=== PATIENT | male | born 1950 | race Caucasian/White ===

== ENCOUNTER → 2016-12-30 | Outpatient (CLI) | payer OTHER, BC ==
[~2016-12-30] MED LIST: ASPI81TA28 PO; AXD/150 PO; B-COTAB18 PO; BENZ-57 PO; BIOT1CAP8 PO; CETI10TA84 PO; CHOL100027 PO; COLC0.6T54 PO; FLUT0.15 NAE; LEVO25TA PO; LSN20 PO; LVQ750 PO; MONT1TAB3 PO; MULT-513 PO; NAPR1TAB9 PO; OXGN; OXYC-106 PO; PREG200C PO; SYMIN/8045 INH; VGR50 PO
[2016-12-30 18:02] LABS: BASO % 0.8 %; BASO ABS # 0.07 K/uL (0-0.2); COMPLETE YES; EOS % 2.8 %; IG% 0.6 %; LYMPH % 28.5 %; LYMPH ABS # 2.48 K/uL (1.2-3.4); MEAN CELL VOLUME 86.8 fL (80-100); MEAN CORPUSCULAR HEMOGLOBIN 28.7 pg (25-34); MEAN CORPUSCULAR HGB CONC 33.1 g/dl (32-36); MEAN PLATELET VOLUME 12.5 fL (7.4-10.4); MONO % 10.8 %; NEUT % 56.5 %; PLATELET COUNT 186 K/uL (130-400); RED BLOOD COUNT 4.84 M/uL (4.7-6.1); WHITE BLOOD COUNT 8.69 K/uL (4.8-10.8)
[2016-12-30 18:29] LABS: ALT/SGPT 29 U/L (12-78); BLOOD UREA NITROGEN 34 mg/dl (7-18); BUN/CREATININE RATIO 26.5 (10-20); CALCIUM 9.2 mg/dl (8.5-10.1); CARBON DIOXIDE 27 mmol/L (21-32); CHLORIDE 108 mmol/L (98-107); CHOLESTEROL 162 mg/dl (0-200); GLUCOSE 90 mg/dl (70-99); POTASSIUM 4.4 mmol/L (3.5-5.1); SODIUM 142 mmol/L (136-145); TRIGLYCERIDES 389 mg/dl (0-150); VERY LOW DENSITY LIPOPROT CALC 78 mg/dl
[2016-12-30 18:32] LABS: ESTIMATED AVERAGE GLUCOSE 108 mg/dl; HA1C FLAG Normal (Normal)
[2016-12-30 18:39] LABS: ALB/GLOB RATIO 0.9 (0.9-2); ALKALINE PHOSPHATASE 73 U/L (45-117); AST/SGOT 24 U/L (15-37); CHOLESTEROL/HDL RATIO 5.6; HDL CHOLESTEROL 29 mg/dl; LDL CHOLESTEROL CALCULATED 55 mg/dl; PROSTATE SPECIFIC ANTIGEN 0.687 ng/ml (0.000-4.000)
--- NOTE | 2017-01-05 13:15 | CODING QUERY MEDICAL NECESSITY ---
SUPPORTING DIAGNOSIS NEEDED A supporting diagnosis is required for the test/procedure performed on this patient in order for us to be reimbursed by the patient's insurance. Please provide a supporting diagnosis for the following test/procedure listed below next to the test name along with your signature. *If there is no additional diagnosis for this patient that would support the following test/procedure please document that below next to the test/procedure. Test(s)/Procedure(s) that require a supporting diagnosis: * GLYCATED HEMOGLOBIN DIAGNOSIS: * PSA DIAGNOSIS: * DOS: 12/30/16 Provider Signature: Date: Thank you [facility] Information Management Once completed, please kindly fax back to [phone] For questions please call [phone]
== END | disposition home or self-care (01) ==
LOC: C.LABBC 13:28
PROVIDERS: ATTEND Internal Medicine
DX: G47.33 Obstructive sleep apnea (adult) (pediatric) (principal); E03.9 Hypothyroidism, unspecified; E55.9 Vitamin D deficiency, unspecified

== ENCOUNTER 2017-04-26 13:56 | Inpatient (IN) | payer OTHER, BC ==
[~2017-04-26] VITALS: Ht 172.7 cm; Wt 128.3 kg
[~2017-04-26 13:56] MED LIST changes: -NAPR1TAB9 PO; -VGR50 PO
[2017-04-26] MEDS ORDERED: SODIUM CHLORIDE 0.9% 1000ML 1,000 ML IV STA ×4 (14:22→17:43)
[2017-04-26 14:39] LABS: COMPLETE YES; EOS % 0.1 %; HEMATOCRIT 43.7 % (42-52); IG% 0.3 %; LYMPH % 3.3 %; LYMPH ABS # 0.24 K/uL (1.2-3.4); MEAN CELL VOLUME 83.7 fL (80-100); MEAN CORPUSCULAR HEMOGLOBIN 27.6 pg (25-34); MEAN PLATELET VOLUME 11.5 fL (7.4-10.4); MONO % 3.3 %; PLATELET COUNT 132 K/uL (130-400); RED BLOOD COUNT 5.22 M/uL (4.7-6.1); WHITE BLOOD COUNT 7.34 K/uL (4.8-10.8)
--- NOTE | 2017-04-26 14:47 | DIAGNOSTIC IMAGING REPORT ---
CHEST ONE VIEW PORTABLE CLINICAL HISTORY: fever COMPARISON STUDY: 04/03/2016 FINDINGS: The heart is enlarged. There is no overt failure. There is no focal pulmonary consolidation. No pleural effusions are visualized.[ IMPRESSION: AP portable study. Cardiomegaly. No evidence of focal pulmonary consolidation. Electronically signed by: Mason Ariza M.D. 04/26/2017 2:46 PM Dictated Date/Time: 04/26/2017 2:45 PM
--- NOTE | 2017-04-26 14:58 | DIAGNOSTIC IMAGING REPORT ---
CT HEAD WITHOUT CONTRAST (CT) CLINICAL HISTORY: confusion COMPARISON STUDY: 08/29/2015 TECHNIQUE: Axial CT of the brain is performed from the vertex to the skull base. IV contrast was not administered for this examination. A dose lowering technique was utilized adhering to the principles of ALARA. CT DOSE: 687.98 mGy.cm FINDINGS: No intra or extra-axial mass lesions are visualized. There is no CT evidence of acute cortical infarction. There is no evidence of midline shift. There is no acute hemorrhage. No calvarial fractures are visualized. There are minimal white matter hypodensities likely on a small vessel basis. There is no evidence of pathologic ventricular dilatation. There is a persistent left mastoid effusion. There is a persistent left posterior parietal scalp nodule, possibly representing a sebaceous cyst. IMPRESSION: 1. Persistent left mastoid effusion 2. No acute intracranial findings 3. Left posterior parietal scalp nodule possibly representing a sebaceous cyst Electronically signed by: Mason Ariza M.D. 04/26/2017 2:57 PM Dictated Date/Time: 04/26/2017 2:55 PM
[2017-04-26] MEDS ORDERED: VGR50 PO (14:59)
[2017-04-26] MEDS ORDERED: NAPR1TAB9 PO (14:59)
[2017-04-26 15:00] LABS: BUN/CREATININE RATIO 20.8 (10-20); CALCIUM 9.1 mg/dl (8.5-10.1); CREATININE 1.4 mg/dl (0.60-1.40); POTASSIUM 3.9 mmol/L (3.5-5.1)
[2017-04-26] MEDS ORDERED: PIPERACILLIN/TAZOBACTAM 3.375 GM/100ML D5W IV STA (15:23)
[2017-04-26] MEDS ORDERED: VANCOMYCIN 1GM/270ML NSS IV STA (15:23)
[2017-04-26] MEDS ORDERED: OPTIRAY 320 IV PRN (15:30)
--- NOTE | 2017-04-26 15:58 | DIAGNOSTIC IMAGING REPORT ---
CT ABD/PELVIS IV CONTRAST ONLY CLINICAL HISTORY: Fever, diarrhea. COMPARISON STUDY: 08/29/2015 TECHNIQUE: Following the IV administration of 94 mL of Optiray-320, CT scan of the abdomen and pelvis was performed from the lung bases to the proximal femurs. Images are reviewed in the axial, sagittal, and coronal planes. IV contrast was administered without complication. A dose lowering technique was utilized adhering to the principles of ALARA. CT DOSE: 2043.58 mGy.cm FINDINGS: Lower chest: There are aortic valvular calcifications. There are basilar atelectatic changes. Liver: There is hepatic steatosis. No focal masses are visualized. Gallbladder: There are equivocal calculi. Spleen: The spleen is mildly enlarged measuring 12.7 cm. Pancreas: Unremarkable. Adrenal glands: There is an indeterminate 2 cm right adrenal gland nodule. Kidneys: There is a 15 mm hyperdense midpole posterior left renal mass. This should be presumed neoplastic until proven otherwise. A dedicated renal CT scan could be obtained in follow-up. There is a 58 mm left renal cyst. There is a complex 14 mm exophytic right renal lesion which appears smaller than on the prior study. There are lower pole left renal calculi the largest of which measures 8 mm. No ureteral or bladder calculi are visualized. Bowel: There are no transition zones indicate bowel obstruction. There are no findings to indicate acute diverticulitis. There are no findings to indicate acute appendicitis. There are postsurgical changes of a right hemicolectomy. Peritoneum: There is no intraperitoneal free air or abdominal ascites. There is small fat-containing hernias. Vasculature: The abdominal aorta is normal in course and caliber. Adenopathy: There is an 18 mm enlarged lymph node in the region of the rommel hepatis. This remains unchanged the prior study. There are borderline enlarged peripancreatic lymph nodes. There are borderline enlarged retroperitoneal lymph nodes. There is a mildly enlarged left external iliac lymph node. There are borderline enlarged left inguinal lymph nodes with mild infiltration of the surrounding fat. Pelvic viscera: The bladder, and pelvic viscera are unremarkable. Skeletal structures: No destructive osseous lesions are seen. IMPRESSION: 1. Postsurgical changes of a right hemicolectomy. 2. No evidence of bowel obstruction. No evidence of free air 3. Mild adenopathy 4. Hepatic steatosis. Mild splenomegaly 5. 2 cm right adrenal gland nodule 6. Indeterminate 15 mm left renal mass. This should be presumed neoplastic until proven otherwise. A dedicated renal CT scan or MRI could be obtained in follow-up 7. Possible cholelithiasis 8. Left-sided nephrolithiasis Electronically signed by: Mason Ariza M.D. 04/26/2017 3:57 PM Dictated Date/Time: 04/26/2017 3:46 PM
[2017-04-26] MEDS ORDERED: ACETAMINOPHEN 500 MG TAB PO STA (16:00)
[2017-04-26 18:46] LABS: URINE APPEARANCE CLOUDY (CLEAR); URINE COLOR DK YELLOW; URINE EPITHELIAL CELL AUTO >30 /lpf (0-5); URINE NITRITE NEG (NEG); URINE SPECIFIC GRAVITY 1.026 (1.000-1.030); UROBILINOGEN NEG (NEG)
[2017-04-26 18:50] LABS: URINE BILIRUBIN 1+ (NEG)
[2017-04-26 18:51] LABS: MANUAL MICROSCOPIC REQUIRED? NO; REVIEW REQ? YES
[2017-04-26] MEDS ORDERED: VANCOMYCIN INJ 1,000 MG in SODIUM CHLORIDE 0.9% 250ML 250 ML IV STA (19:13)
--- NOTE | 2017-04-26 19:36 | History and Physical ---
History & Physical Date & Time of Service: Apr 26, 2017 at 19:35 Chief Complaint: 102.9 Fever Will Not Go Down Primary Care Physician: Carlo Willingham M.D. History of Present Illness Source: patient, clinic records, hospital records Mr Camacho is a 66 year old male with significant history of sepsis (pneumonia ) and bacterial meningitis who presented to the ER with persistent fever for the past day. He notes he felt well over the past few days with only some diarrhea that cleared up today which is not unusual for him (IBS) and no known sick contacts or tick bites. This morning around 11am-12pm he noticed he started to have sudden chills. He had a fever around 103 as measured by his and he started becoming more delirious. He denies any headache, neck stiffness, chest pain, shortness of breath, cough, nasal congestion, ear pain, sore throat, urine Sx, constipation, GI bleeding, In the ER he was initially hemodynamically stable with a temperature of 39.5 celsius. However, he developed hypotension while on his third liter of normal saline and has since received an additional 2 L NSS with current BP of 88/51. Blood cultures taken and he was started on vancomycin, clindamycin and Levaquin for presumed sepsis ?cellulitis as source. His phosphate is 1.1 and he has been started on IV 21mmol of K Phos. His magnesium is 1.5 and he is getting IV 1g Mg Sulphate. WBC 7.34, Procalcitonin elevated at 5.09, Cr 1.4 (at baseline), BUN 29. POC lactic acid 2.22. Stool culture were taken (negative for c.diff toxin). UA showed 3+ protein, trace ketones, small leukocyte esterase, 1+ Marlon, >30 epithelial cells and 0-4 RBC. Counts for pathological casts and renal epithelial cells currently pending. Imaging see below. He is currently being assessed by the nut roaster Dr Buck who started phenylephrine and is placing a right IJ line Past Medical/Surgical History Medical Problems: (1) Calculus Of Kidney (2) Hyperlipidemia (3) Peripheral Neuropathy (4) Spinal cord tumor (benign) L5 (5) Spinal Stenosis, Lumbar Reg, W/Out Neurogenic Claudication (6) Obstructive Sleep Apnea - on home CPAP (7) Hypothyroidism (8) Chronic left leg edema (9) Asthma (10) Mobilizes with cane Past Surgeries: Back surgery 06/14/1984 Right knee arthroscopy Right hemicolectomy Aug 2015 - post massive GI bleeding after polyp removed for colonoscopy Family History Blood clots Social History Smoking Status: Former Smoker Drug Use: none Marital Status: Housing status: lives with significant other Occupational Status: retired Multi-Drug Resistant Organisms History of MDRO: Yes Type of MDRO: MRSA Allergies Coded Allergies: Tetracycline (Verified Allergy, Unknown, SORES IN MOUTH, 04/26/17) Home Medications Scheduled Aspirin (Aspirin Ec), 81 MG PO QPM B-Complex Vitamins (Vitamin B Complex), 1 TAB PO QAM Biotin (Biotin), 1 CAP PO DAILY Cholecalciferol (Vitamin D 1000 Unit), 1,000 INTER.UNIT PO QAM Colchicine (Colchicine), 0.3 MG PO HS Levothyroxine Sodium (Synthroid), 25 MCG PO QAM Lisinopril (Lisinopril), 20 MG PO QAM Montelukast Sodium (Singulair), 10 MG PO HS Multivitamins/Minerals (Mvi With Minerals), 1 TAB PO DAILY Naproxen (Aleve), 440 MG PO DAILY Nizatidine (Nizatidine), 150 MG PO HS Pregabalin (Lyrica), 200 MG PO TID Sildenafil Citrate (Viagra), 50 MG PO PRN Scheduled PRN Oxycodone/Acetaminophen 10MG/325MG (Percocet 10MG/325MG), 1 TAB PO TID PRN for Pain Review of Systems Constitutional: + fever, + chills, + sweats, + fatigue, No weight loss, No weakness Eyes: No worsening of vision, No eye pain, No redness, No discharge, No diplopia ENT: No hearing loss, No unusual epistaxis, No nasal symptoms, No sore throat, No tinnitus, No trouble swallowing Respiratory: No cough, No sputum, No shortness of breath, No dyspnea on exertion, No dyspnea at rest, No hemoptysis Cardiovascular: + edema (chronic left leg edema), No chest pain, No claudication, No palpitations Abdomen: + diarrhea (see HPI (chronic)), No pain, No nausea, No vomiting, No constipation, No GI bleeding Musculoskeletal: No joint pain, No muscle pain Genitourinary - Male: No hematuria, No dysuria, No urinary frequency, No urinary urgency Neurologic: + numbness/tingling (chronic peripheral neuropathy and left sided numbness below ankle) Endocrine: + fatigue, No excessive thirst, No excessive urination Hematologic / Lymphatic: No abnormal bleeding/bruising Integumentary: No rash, No itch Physical Exam Vital Signs Date Time Temp Pulse Resp B/P (MAP) Pulse Ox O2 Delivery O2 Flow Rate FiO2 04/26/17 19:10 96 04/26/17 19:06 96 20 91/52 97 Room Air 04/26/17 18:51 36.5 97 20 81/50 96 Room Air 04/26/17 18:46 97 20 84/55 96 Room Air 04/26/17 18:40 96 20 86/49 97 Room Air 04/26/17 18:36 96 20 79/46 94 Room Air 04/26/17 18:31 97 20 68/47 96 Room Air 04/26/17 18:26 97 20 72/47 96 04/26/17 18:24 97 16 61/49 96 Room Air 04/26/17 18:21 97 16 66/42 96 Room Air 04/26/17 18:18 98 16 72/41 96 Room Air 04/26/17 18:12 96 20 71/41 95 Room Air 04/26/17 18:10 97 20 75/42 95 Room Air 04/26/17 18:06 98 20 79/43 95 04/26/17 18:04 97 16 78/43 96 04/26/17 18:01 100 20 69/40 96 Room Air 04/26/17 18:00 96 20 69/40 95 Room Air 04/26/17 17:57 94 20 73/39 94 Room Air 04/26/17 17:48 100 20 70/43 94 Room Air 04/26/17 17:40 52 20 75/34 94 Room Air 04/26/17 17:36 38.6 72 20 75/34 94 Room Air 04/26/17 15:18 39.9 106 20 116/64 94 04/26/17 14:27 110 20 124/45 92 Room Air 04/26/17 14:18 115 04/26/17 14:01 39.5 58 20 112/57 93 Room Air General Appearance: no apparent distress, + obese (morbidly) Head: normocephalic, atraumatic, + pertinent finding (sebacious cyst noted on CT palpated, no surrounding erythema) Eyes: normal inspection, PERRL, EOMI ENT: normal ENT inspection, hearing grossly normal, TMs normal, pharynx normal Neck: supple, no adenopathy, no JVD (unable to assess due to neck size) Respiratory/Chest: chest non-tender, lungs clear (quiet due to size but no appreciable crackles of wheezing), normal breath sounds, no respiratory distress , no accessory muscle use Cardiovascular: no murmur, normal peripheral pulses (DT/PT and radial pulses equal), + irregularly irregular (difficult to assess but pulse appears to be irregularly irregular) Abdomen/GI: normal bowel sounds, non tender, soft, + pertinent finding (obese) Back: no CVA tenderness Extremities/Musculoskelatal: no calf tenderness, + pedal edema (left sided 3+ up to mid thigh, right sided 2+ to mid amador), + pertinent finding (cool peripheries) Neurologic/Psych: nut roaster II-XII nml as tested, alert, normal mood/affect, oriented x 3, + motor weakness (left sided chronic foot drop), + sensory deficit (below ankle on left sided numbness, tingling sensation in glove and stocking distribution) Skin: + pallor (cool toes b/l), + pertinent finding (bright erythema right amador > left, distribution of venous dematitis sparing the ankle) Diagnostics Laboratory Results Results Past 24 Hours Test 04/26/17 14:15 04/26/17 14:24 04/26/17 15:15 04/26/17 16:15 Range/Units White Blood Count 7.34 4.8-10.8 K/uL Red Blood Count 5.22 4.7-6.1 M/uL Hemoglobin 14.4 14.0-18.0 g/dL Hematocrit 43.7 42-52 % Mean Corpuscular Volume 83.7 80-100 fL Mean Corpuscular Hemoglobin 27.6 25-34 pg Mean Corpuscular Hemoglobin Concent 33.0 32-36 g/dl Platelet Count 132 130-400 K/uL Mean Platelet Volume 11.5 7.4-10.4 fL Neutrophils (%) (Auto) 93.0 % Lymphocytes (%) (Auto) 3.3 % Monocytes (%) (Auto) 3.3 % Eosinophils (%) (Auto) 0.1 % Basophils (%) (Auto) 0.0 % Neutrophils # (Auto) 6.83 1.4-6.5 K/uL Lymphocytes # (Auto) 0.24 1.2-3.4 K/uL Monocytes # (Auto) 0.24 0.11-0.59 K/uL Eosinophils # (Auto) 0.01 0-0.5 K/uL Basophils # (Auto) 0.00 0-0.2 K/uL RDW Standard Deviation 44.6 36.4-46.3 fL RDW Coefficient of Variation 14.6 11.5-14.5 % Immature Granulocyte % (Auto) 0.3 % Immature Granulocyte # (Auto) 0.02 0.00-0.02 K/uL Sodium Level 141 136-145 mmol/L Potassium Level 3.9 3.5-5.1 mmol/L Chloride Level 107 98-107 mmol/L Carbon Dioxide Level 22 21-32 mmol/L Anion Gap 12.0 3-11 mmol/L Blood Urea Nitrogen 29 7-18 mg/dl Creatinine 1.40 0.60-1.40 mg/dl Est Creatinine Clear Calc Drug Dose 68.4 ml/min Estimated GFR () 59.4 Estimated GFR (Non- 51.3 BUN/Creatinine Ratio 20.8 10-20 Random Glucose 90 70-99 mg/dl Calcium Level 9.1 8.5-10.1 mg/dl Total Bilirubin 0.8 0.2-1 mg/dl Direct Bilirubin 0.3 0-0.2 mg/dl Aspartate Amino Transf (AST/SGOT) 33 15-37 U/L Alanine Aminotransferase (ALT/SGPT) 36 12-78 U/L Alkaline Phosphatase 80 45-117 U/L Troponin I 0.021 0-0.045 ng/ml Total Protein 6.9 6.4-8.2 gm/dl Albumin 3.3 3.4-5.0 gm/dl Bedside Lactic Acid Venous 2.22 0.90-1.70 mmol/L Influenza Type A Antigen Neg for Influ A NEG Influenza Type B Antigen Neg for Influ B NEG Urine Color DK YELLOW Urine Appearance CLOUDY CLEAR Urine pH 5.0 4.5-7.5 Urine Specific [place] 1.026 1.000-1.030 Urine Protein 3+ NEG Urine Glucose (UA) NEG NEG Urine Ketones TRACE NEG Urine Occult Blood NEG NEG Urine Nitrite NEG NEG Urine Bilirubin 1+ NEG Urine Urobilinogen NEG NEG Urine Leukocyte Esterase SMALL NEG Urine WBC (Auto) 1-5 0-5 /hpf Urine RBC (Auto) 0-4 0-4 /hpf Urine Hyaline Casts (Auto) 0-5 /lpf Urine Epithelial Cells (Auto) >30 0-5 /lpf Urine Bacteria (Auto) NEG NEG Urine Renal Epithelial Cells 0-5 /lpf Urine Pathogenic Casts 0 /lpf Microbiology Results 04/26/17 Blood Culture, Received Pending 04/26/17 Blood Culture, Received Pending 04/26/17 Urine Culture, Received Pending Diagnostic Radiology CT HEAD WITHOUT CONTRAST (CT) CLINICAL HISTORY: confusion COMPARISON STUDY: 08/29/2015 TECHNIQUE: Axial CT of the brain is performed from the vertex to the skull base. IV contrast was not administered for this examination. A dose lowering technique was utilized adhering to the principles of ALARA. CT DOSE: 687.98 mGy.cm FINDINGS: No intra or extra-axial mass lesions are visualized. There is no CT evidence of acute cortical infarction. There is no evidence of midline shift. There is no acute hemorrhage. No calvarial fractures are visualized. There are minimal white matter hypodensities likely on a small vessel basis. There is no evidence of pathologic ventricular dilatation. There is a persistent left mastoid effusion. There is a persistent left posterior parietal scalp nodule, possibly representing a sebaceous cyst. IMPRESSION: 1. Persistent left mastoid effusion 2. No acute intracranial findings 3. Left posterior parietal scalp nodule possibly representing a sebaceous cyst Electronically signed by: Mason Ariza M.D. 04/26/2017 2:57 PM Dictated Date/Time: 04/26/2017 2:55 PM CHEST ONE VIEW PORTABLE CLINICAL HISTORY: fever COMPARISON STUDY: 04/03/2016 FINDINGS: The heart is enlarged. There is no overt failure. There is no focal pulmonary consolidation. No pleural effusions are visualized.[ IMPRESSION: AP portable study. Cardiomegaly. No evidence of focal pulmonary consolidation. Electronically signed by: Mason Ariza M.D. 04/26/2017 2:46 PM Dictated Date/Time: 04/26/2017 2:[address] ABD/PELVIS IV CONTRAST ONLY CLINICAL HISTORY: Fever, diarrhea. COMPARISON STUDY: 08/29/2015 TECHNIQUE: Following the IV administration of 94 mL of Optiray-320, CT scan of the abdomen and pelvis was performed from the lung bases to the proximal femurs. Images are reviewed in the axial, sagittal, and coronal planes. IV contrast was administered without complication. A dose lowering technique was utilized adhering to the principles of ALARA. CT DOSE: 2043.58 mGy.cm FINDINGS: Lower chest: There are aortic valvular calcifications. There are basilar atelectatic changes. Liver: There is hepatic steatosis. No focal masses are visualized. Gallbladder: There are equivocal calculi. Spleen: The spleen is mildly enlarged measuring 12.7 cm. Pancreas: Unremarkable. Adrenal glands: There is an indeterminate 2 cm right adrenal gland nodule. Kidneys: There is a 15 mm hyperdense midpole posterior left renal mass. This should be presumed neoplastic until proven otherwise. A dedicated renal CT scan could be obtained in follow-up. There is a 58 mm left renal cyst. There is a complex 14 mm exophytic right renal lesion which appears smaller than on the prior study. There are lower pole left renal calculi the largest of which measures 8 mm. No ureteral or bladder calculi are visualized. Bowel: There are no transition zones indicate bowel obstruction. There are no findings to indicate acute diverticulitis. There are no findings to indicate acute appendicitis. There are postsurgical changes of a right hemicolectomy. Peritoneum: There is no intraperitoneal free air or abdominal ascites. There is small fat-containing hernias. Vasculature: The abdominal aorta is normal in course and caliber. Adenopathy: There is an 18 mm enlarged lymph node in the region of the romeml hepatis. This remains unchanged the prior study. There are borderline enlarged peripancreatic lymph nodes. There are borderline enlarged retroperitoneal lymph nodes. There is a mildly enlarged left external iliac lymph node. There are borderline enlarged left inguinal lymph nodes with mild infiltration of the surrounding fat. Pelvic viscera: The bladder, and pelvic viscera are unremarkable. Skeletal structures: No destructive osseous lesions are seen. IMPRESSION: 1. Postsurgical changes of a right hemicolectomy. 2. No evidence of bowel obstruction. No evidence of free air 3. Mild adenopathy 4. Hepatic steatosis. Mild splenomegaly 5. 2 cm right adrenal gland nodule 6. Indeterminate 15 mm left renal mass. This should be presumed neoplastic until proven otherwise. A dedicated renal CT scan or MRI could be obtained in follow-up 7. Possible cholelithiasis 8. Left-sided nephrolithiasis Electronically signed by: Mason Ariza M.D. 04/26/2017 3:57 PM Dictated Date/Time: 04/26/2017 3:46 PM EKG Sinus tachycardia 117 bpm RBBB with frequent PVCs Impression Assessment and Plan 66 year old male with acute onset fever without significant findings of source. SIRS with shock - possible source of left leg cellulitis however this appears to be more consistent with venous dermatitis, it is longstanding, unchanging and not painful. I think it is reasonable to cover with antibiotics given his hypotension however for 48 hours until blood, stool and urine cultures are back. - Continue vancomycin, clindamycin and Zosyn - Follow up blood, urine and stool cultures - Echo in morning to assess for infective endocarditis - Persistent left mastoid effusion - no acute infection on exam, no headache or pain to suggest acute infection - Left posterior parietal scalp nodule - likely sebaceous cyst, does not appear acutely infected - Left-sided nephrolithiasis - no hydronephrosis, known diagnosis, no pain, unlikely cause of sepsis - Possible cholelithiasis - no pain or elevated marlon makes cholecystitis/ cholangitis unlikely cause of sepsis Indeterminate 15 mm left renal mass on CT - renal cell carcinoma could explain his fever, however he does not have any apparent hepatic involvement, no RBCs in UA, anemia or hypercalcemia. He does have multiple enlarged abdominal adenopathy which supports this diagnosis. - consult for heme/onc tomorrow - avoid naproxen or other renal 2 cm right adrenal gland nodule - random cortisol appears to be appropriately raised given stress and hypotension - likely benign as it is <4cm and his problem is hypotension rather than hypertension Hypotension/shock requiring vasopressor support - continue IV fluids over night and will defer to ICU with regard to vasopressor treatment - stop anti-hypertensives Hypophosphatemia/Hypermagnesemia - replace electrolytes as per ICU protocol GERD - switch nizatidine to ranitidine 150mg PO BID Asthma - continue montelukast GUS - continue CPAP at night Peripheral Neuropathy - continue pregabalin Hypothyroidism - recheck TSH - continue levothyroxine 25 mcg VTE Prophylaxis - heparin 5000 units SQ Q8H Code - Full Disposition - admit to ICU. Consult nut roaster. PT/OT Level of Care Critical Care Resuscitation Status FULL RESUSCITATION VTE Prophylaxis VTE Risk Assessment Done? Y/N: Yes Risk Level: Moderate Given or contraindicated: Unfractionated heparin SQ Resident Tracking Resident Involvement: Resident Care Provided Care Provided: Adult ED
[2017-04-26] MEDS ORDERED: VANCOMYCIN 1GM/270ML NSS ONE (19:39)
[2017-04-26] MEDS ORDERED: NURSING VERBAL MED ORDER ONE (19:45)
[2017-04-26 19:51] LABS: MAGNESIUM 1.5 mg/dl (1.8-2.4)
[2017-04-26 19:52] LABS: PHOSPHORUS 1.1 mg/dl (2.5-4.9)
[2017-04-26] MEDS ORDERED: POTASSIUM CHLORIDE 10 MEQ TABCR PO STA (20:17)
[2017-04-26] MEDS ORDERED: POTASSIUM PHOS 3 MMOL/1 ML INFUSION IV STA (20:17)
[2017-04-26] MEDS ORDERED: MAGNESIUM SULFATE 1GM / D5W 1 GM BAG IV STA (20:17)
[2017-04-26] MEDS ORDERED: CLINDAMYCIN IV 900 MG in DEXTROSE 5% ADD-VANTAGE 100ML 100 ML IV ONE (20:30)
--- NOTE | 2017-04-26 20:34 | DIAGNOSTIC IMAGING REPORT ---
CHEST ONE VIEW PORTABLE CLINICAL HISTORY: Central venous line placement COMPARISON STUDY: 04/23/2017 FINDINGS: The heart is enlarged. There is mild central vascular prominence. There is no lobar consolidation. There has been interval placement of a right internal jugular central venous catheter. The tip projects over the superior vena cava. There is no pneumothorax. No pleural effusions are visualized.[ IMPRESSION: No evidence of pneumothorax status post placement of a right internal jugular central venous catheter. The tip projects over the superior vena cava Electronically signed by: Mason Ariza M.D. 04/26/2017 8:33 PM Dictated Date/Time: 04/26/2017 8:32 PM
[2017-04-26] MEDS: PHENYLEPHRINE HCL INJ 20 MG in DEXTROSE 5% 500ML 500 ML IV PRN (20:38)
[2017-04-26] MEDS ORDERED: POTASSIUM PHOSPHATE INJ 21 MMOL in SODIUM CHLORIDE 0.9% 500ML 500 ML IV ONE (20:45)
[2017-04-26] MEDS ORDERED: VANCOMYCIN 1GM/270ML NSS IV SCH (21:02)
[2017-04-26] MEDS ORDERED: VANCOMYCIN CONSULT ACTIVE PRN (21:15)
[2017-04-26 22:00] VITALS: BP 113/61; PULSE 94; TEMP 37.1; O2SAT 95; Ht 172.7 cm; Wt 128.3 kg
--- NOTE | 2017-04-26 23:13 | Critical Care Consultation ---
Critical Care Consultation Date of Consultation: Apr 26, 2017. Attending Physician: Antonio Gunter M.D. Reason for Consultation: Hypotension History of Present Illness Zurdo Camacho is a 66-year-old male who presented to the ED today with complaints of fever of 103F and a 2 day course of diarrhea. According to him the fever has been intermittent and ongoing for approximately 5 days. His 2 day bout of diarrhea occurred approximately 5 days ago as well. He awoke today and after taking both Motrin and later Tylenol his fever notably persisted but rigoberto; therefore, his brought him to the emergency room. Per Pt, his is very protective of his medical status secondary to a extensive problem list including but not limited to bilateral pneumonia, bacterial meningitis, internal bleeding status post colonoscopy that required bowel resection. When patient arrived to the emergency department he was hemodynamically stable; however, while he was receiving his third liter of fluid resuscitation patient became hypotensive. Throughout his stay in the emergency department the patient was resting comfortably without complaints of physical discomfort. Dr. Buck arrived and performed a right IJ central line placement for vasoactive medication administration. Patient's is at bedside throughout procedure. Prior to arrival in ICU patient underwent head and abd/pelvis CT of which findings are below. CXR without consolidation, effusion, of sign of overt heart failure. Patient was started on phenylephrine a MAP greater than 65 and transferred to the ICU. Thus far most of the patient's labs are remarkably within normal limits. He is without leukocytosis or left shift. Creatinine is 1.4 and BUNs 29 there are no signs currently of shocked liver. His procalcitonin is significantly elevated at 5.09 and his [id number] lactic acid is 2.22. Phosphorus level 1.1 and magnesium level of 1.5. Patient's random cortisol is 34.37. A source of infection is not obvious at this time. However patient does have cellulitis of his lower left extremity there is edematous and hot to the touch. Patient states that this appears to be at his baseline and is not concerning to him. Patient denies being recently ill aside from above symptoms, he denies fever or chills, chest pain/pressure, awareness of tachyarrhythmias, dyspnea, cough, abdominal pain/nausea. However during my exam patient stated he was going to vomit and was provided with a basin. Since such time he has vomited approximately 2-3 times. His QTC was reexamined and patient received IV Zofran after receiving his home dose of H2 boy. Patient denies blood or mucus in his stool recently and has had no change in bladder habits. Past Medical/Surgical History Medical Problems: Acid reflux Acute kidney injury Bacterial meningitis Calculus Of Kidney Cellulitis Erectile dysfunction Fever Hyperlipidemia Nec/Nos Hypertension Hypotension Hypothyroidism Leukocytosis Metabolic acidosis with increased anion gap and accumulation of organic acids Neuropathy Obesity Pneumonia Septic shock Septicemia due to group B Streptococcus SIRS (systemic inflammatory response syndrome) Sleep Apnea Spinal cord tumor Spinal Stenosis, Lumbar Reg, W/Out Neurogenic Claudication Surgical Problems: History of right hemicolectomy Appendectomy Removal of spinal cord tumor Family History Blood clots FH: diabetes mellitus FHx: pulmonary embolism Social History Smoking Status: Former Smoker (quit 32 years ago never heavy smoker) Drug Use: none Marital Status: Housing Status: lives with family Occupation Status: retired Allergies Coded Allergies: Tetracycline (Verified Allergy, Unknown, SORES IN MOUTH, 04/26/17) Home Medications Scheduled Aspirin (Aspirin Ec), 81 MG PO QPM B-Complex Vitamins (Vitamin B Complex), 1 TAB PO QAM Biotin (Biotin), 1 CAP PO DAILY Cholecalciferol (Vitamin D 1000 Unit), 1,000 INTER.UNIT PO QAM Colchicine (Colchicine), 0.3 MG PO HS Levothyroxine Sodium (Synthroid), 25 MCG PO QAM Lisinopril (Lisinopril), 20 MG PO QAM Montelukast Sodium (Singulair), 10 MG PO HS Multivitamins/Minerals (Mvi With Minerals), 1 TAB PO DAILY Naproxen (Aleve), 440 MG PO DAILY Nizatidine (Nizatidine), 150 MG PO HS Pregabalin (Lyrica), 200 MG PO TID Sildenafil Citrate (Viagra), 50 MG PO PRN Scheduled PRN Oxycodone/Acetaminophen 10MG/325MG (Percocet 10MG/325MG), 1 TAB PO TID PRN for Pain Current Inpatient Medications Current Inpatient Medications Medications (Trade) Dose Ordered Sig/[place] Route Start Time Stop Time Status Last Admin Dose Admin Ioversol (Optiray 320) 100 ml UD PRN IV 04/26/17 15:30 04/30/17 15:29 Clindamycin Phosphate 900 mg/ Dextrose 106 ml @ 100 mls/hr Q8H IV 04/26/17 19:30 04/28/17 19:29 UNV Phenylephrine HCl 20 mg/Dextrose 502 ml @ 0 mls/hr Q0M PRN IV 04/26/17 20:00 05/26/17 19:59 04/26/17 20:38 195 MLS/HR Potassium Phosphate 21 mmol/ Sodium Chloride 507 ml @ 88 mls/hr TODAY@2045 ONCE IV 04/26/17 20:45 04/27/17 02:30 04/26/17 20:58 88 MLS/HR Vancomycin HCl (Vancomycin 1gm/ 270ml Nss) 1 gm UD IV 04/26/17 21:02 04/28/17 21:01 UNV Vancomycin HCl (Consult) 1 ea UD PRN N/A 04/26/17 21:15 05/26/17 21:14 Review of Systems 12 systems reviewed and negative other than previously mentioned in the HPI. Physical Exam Date Time Temp Pulse Resp B/P (MAP) Pulse Ox O2 Delivery O2 Flow Rate FiO2 04/26/17 22:00 37.1 94 20 113/61 95 Room Air 04/26/17 21:41 36.5 98 20 153/67 96 04/26/17 21:31 81 153/67 97 Room Air 04/26/17 21:00 93 20 139/69 97 Room Air 04/26/17 20:49 98 20 111/73 97 Room Air 04/26/17 20:26 97 124/58 97 Room Air 04/26/17 19:35 96 20 88/51 97 Room Air 04/26/17 19:10 96 04/26/17 19:06 96 20 91/52 97 Room Air 04/26/17 18:51 36.5 97 20 81/50 96 Room Air 04/26/17 18:46 97 20 84/55 96 Room Air 04/26/17 18:40 96 20 86/49 97 Room Air 04/26/17 18:36 96 20 79/46 94 Room Air 04/26/17 18:31 97 20 68/47 96 Room Air 04/26/17 18:26 97 20 72/47 96 04/26/17 18:24 97 16 61/49 96 Room Air 04/26/17 18:21 97 16 66/42 96 Room Air 04/26/17 18:18 98 16 72/41 96 Room Air 04/26/17 18:12 96 20 71/41 95 Room Air 04/26/17 18:10 97 20 75/42 95 Room Air 04/26/17 18:06 98 20 79/43 95 04/26/17 18:04 97 16 78/43 96 04/26/17 18:01 100 20 69/40 96 Room Air 04/26/17 18:00 96 20 69/40 95 Room Air 04/26/17 17:57 94 20 73/39 94 Room Air 04/26/17 17:48 100 20 70/43 94 Room Air 04/26/17 17:40 52 20 75/34 94 Room Air 04/26/17 17:36 38.6 72 20 75/34 94 Room Air 04/26/17 15:18 39.9 106 20 116/64 94 04/26/17 14:27 110 20 124/45 92 Room Air 04/26/17 14:18 115 04/26/17 14:01 39.5 58 20 112/57 93 Room Air Vital Signs - as noted Laboratory Data - as noted Physical Exam: General - NAD, sleeping comfortably on left side prior to my exam Eyes - PERRL, EOMI No icterus, gaze conjugate ENT - Mucosa moist, no lesions or candidiasis Neck - Supple, trachea midline, no masses or lymphadenopathy, no JVD or bruits Lungs - No paradoxical chest wall movement, clear to auscultation bilaterally, no wheezes, rales, or rhonchi Heart - Reg rate and rhythm, No murmur, rubs, clicks, or gallops appreciated Abdomen - BS absent, no bruits noted, tympanic to percussion, soft, nontender, obese abdomen Extremities - Cellulitis of left calf, erythema from ankle to just inferior of patella, dry with intact skin, rubor noted throughout, pedal pulses intact bilaterally Neuro - A&O X 4 Strength extremities equal and appropriate bilaterally Reflexes: normal and equal CN: PERRL, EOMI, no facial asymmetry, uvula/tongue midline Laboratory Results Last 24 Hours Test 04/26/17 14:15 04/26/17 14:24 04/26/17 15:15 04/26/17 16:15 White Blood Count 7.34 K/uL Red Blood Count 5.22 M/uL Hemoglobin 14.4 g/dL Hematocrit 43.7 % Mean Corpuscular Volume 83.7 fL Mean Corpuscular Hemoglobin 27.6 pg Mean Corpuscular Hemoglobin Concent 33.0 g/dl Platelet Count 132 K/uL Mean Platelet Volume 11.5 fL Neutrophils (%) (Auto) 93.0 % Lymphocytes (%) (Auto) 3.3 % Monocytes (%) (Auto) 3.3 % Eosinophils (%) (Auto) 0.1 % Basophils (%) (Auto) 0.0 % Neutrophils # (Auto) 6.83 K/uL Lymphocytes # (Auto) 0.24 K/uL Monocytes # (Auto) 0.24 K/uL Eosinophils # (Auto) 0.01 K/uL Basophils # (Auto) 0.00 K/uL RDW Standard Deviation 44.6 fL RDW Coefficient of Variation 14.6 % Immature Granulocyte % (Auto) 0.3 % Immature Granulocyte # (Auto) 0.02 K/uL Sodium Level 141 mmol/L Potassium Level 3.9 mmol/L Chloride Level 107 mmol/L Carbon Dioxide Level 22 mmol/L Anion Gap 12.0 mmol/L Blood Urea Nitrogen 29 mg/dl Creatinine 1.40 mg/dl Est Creatinine Clear Calc Drug Dose 68.4 ml/min Estimated GFR () 59.4 Estimated GFR (Non- 51.3 BUN/Creatinine Ratio 20.8 Random Glucose 90 mg/dl Calcium Level 9.1 mg/dl Phosphorus Level 1.1 mg/dl Magnesium Level 1.5 mg/dl Total Bilirubin 0.8 mg/dl Direct Bilirubin 0.3 mg/dl Aspartate Amino Transf (AST/SGOT) 33 U/L Alanine Aminotransferase (ALT/SGPT) 36 U/L Alkaline Phosphatase 80 U/L Troponin I 0.021 ng/ml Total Protein 6.9 gm/dl Albumin 3.3 gm/dl Procalcitonin 5.09 ng/ml Bedside Lactic Acid Venous 2.22 mmol/L Influenza Type A Antigen Neg for Influ A Influenza Type B Antigen Neg for Influ B Urine Color DK YELLOW Urine Appearance CLOUDY Urine pH 5.0 Urine Specific [place] 1.026 Urine Protein 3+ Urine Glucose (UA) NEG Urine Ketones TRACE Urine Occult Blood NEG Urine Nitrite NEG Urine Bilirubin 1+ Urine Urobilinogen NEG Urine Leukocyte Esterase SMALL Urine WBC (Auto) 1-5 /hpf Urine RBC (Auto) 0-4 /hpf Urine Hyaline Casts (Auto) /lpf Urine Epithelial Cells (Auto) >30 /lpf Urine Bacteria (Auto) NEG Urine Renal Epithelial Cells /lpf Urine Pathogenic Casts /lpf Test 04/26/17 20:05 04/26/17 22:55 Random Cortisol 34.37 mcg/dl Diagnostic Results CHEST ONE VIEW PORTABLE CLINICAL HISTORY: Central venous line placement COMPARISON STUDY: 04/23/2017 FINDINGS: The heart is enlarged. There is mild central vascular prominence. There is no lobar consolidation. There has been interval placement of a right internal jugular central venous catheter. The tip projects over the superior vena cava. There is no pneumothorax. No pleural effusions are visualized.[ IMPRESSION: No evidence of pneumothorax status post placement of a right internal jugular central venous catheter. The tip projects over the superior vena cava Electronically signed by: Mason Ariza M.D. 04/26/2017 8:33 PM Dictated Date/Time: 04/26/2017 8:[address] HEAD WITHOUT CONTRAST (CT) CLINICAL HISTORY: confusion COMPARISON STUDY: 08/29/2015 TECHNIQUE: Axial CT of the brain is performed from the vertex to the skull base. IV contrast was not administered for this examination. A dose lowering technique was utilized adhering to the principles of ALARA. CT DOSE: 687.98 mGy.cm FINDINGS: No intra or extra-axial mass lesions are visualized. There is no CT evidence of acute cortical infarction. There is no evidence of midline shift. There is no acute hemorrhage. No calvarial fractures are visualized. There are minimal white matter hypodensities likely on a small vessel basis. There is no evidence of pathologic ventricular dilatation. There is a persistent left mastoid effusion. There is a persistent left posterior parietal scalp nodule, possibly representing a sebaceous cyst. IMPRESSION: 1. Persistent left mastoid effusion 2. No acute intracranial findings 3. Left posterior parietal scalp nodule possibly representing a sebaceous cyst Electronically signed by: Mason Ariza M.D. 04/26/2017 2:57 PM Dictated Date/Time: 04/26/2017 2:[address] ABD/PELVIS IV CONTRAST ONLY CLINICAL HISTORY: Fever, diarrhea. COMPARISON STUDY: 08/29/2015 TECHNIQUE: Following the IV administration of 94 mL of Optiray-320, CT scan of the abdomen and pelvis was performed from the lung bases to the proximal femurs. Images are reviewed in the axial, sagittal, and coronal planes. IV contrast was administered without complication. A dose lowering technique was utilized adhering to the principles of ALARA. CT DOSE: 2043.58 mGy.cm FINDINGS: Lower chest: There are aortic valvular calcifications. There are basilar atelectatic changes. Liver: There is hepatic steatosis. No focal masses are visualized. Gallbladder: There are equivocal calculi. Spleen: The spleen is mildly enlarged measuring 12.7 cm. Pancreas: Unremarkable. Adrenal glands: There is an indeterminate 2 cm right adrenal gland nodule. Kidneys: There is a 15 mm hyperdense midpole posterior left renal mass. This should be presumed neoplastic until proven otherwise. A dedicated renal CT scan could be obtained in follow-up. There is a 58 mm left renal cyst. There is a complex 14 mm exophytic right renal lesion which appears smaller than on the prior study. There are lower pole left renal calculi the largest of which measures 8 mm. No ureteral or bladder calculi are visualized. Bowel: There are no transition zones indicate bowel obstruction. There are no findings to indicate acute diverticulitis. There are no findings to indicate acute appendicitis. There are postsurgical changes of a right hemicolectomy. Peritoneum: There is no intraperitoneal free air or abdominal ascites. There is small fat-containing hernias. Vasculature: The abdominal aorta is normal in course and caliber. Adenopathy: There is an 18 mm enlarged lymph node in the region of the rommel hepatis. This remains unchanged the prior study. There are borderline enlarged peripancreatic lymph nodes. There are borderline enlarged retroperitoneal lymph nodes. There is a mildly enlarged left external iliac lymph node. There are borderline enlarged left inguinal lymph nodes with mild infiltration of the surrounding fat. Pelvic viscera: The bladder, and pelvic viscera are unremarkable. Skeletal structures: No destructive osseous lesions are seen. IMPRESSION: 1. Postsurgical changes of a right hemicolectomy. 2. No evidence of bowel obstruction. No evidence of free air 3. Mild adenopathy 4. Hepatic steatosis. Mild splenomegaly 5. 2 cm right adrenal gland nodule 6. Indeterminate 15 mm left renal mass. This should be presumed neoplastic until proven otherwise. A dedicated renal CT scan or MRI could be obtained in follow-up 7. Possible cholelithiasis 8. Left-sided nephrolithiasis Electronically signed by: Mason Ariza M.D. 04/26/2017 3:57 PM Dictated Date/Time: 04/26/2017 3:46 PM Assessment & Plan (1) Hypothyroidism (2) Obesity (3) Hypertension (4) Acid reflux (5) Septic shock (6) Hypotension (7) Neuropathy (8) Left leg cellulitis (9) Sleep apnea Reason Critically Ill: Patient is an 66-year-old male who is transferred to the ICU for hypotension s/p fluid resuscitation. PLAN: CV: * Wean phenylephrine as tolerated; goal MAP >65 * Rate 0.5 with MAP of 67 * Hold Home Hypertension Medications * EKG in emergency department and significant ectopy which calculated a QTC of greater than 600; recalculated and ICU as 469 * Repeat EKG in AM * Ectopy greatly improved after fluid resuscitation and electrolyte initiation * Echo pending * Monitor on telemetry ID: * ABX: Clindamycin, Zosyn, & Vanco * Procalcitonin elevated, Lactic Acid 2.2 * WBCs currently within normal limits * Febrile in emergency department of 39.9; 1 dose of by mouth Tylenol currently afebrile since * Blood cultures, urine culture & stool culture pending * C. difficile negative * U/A: 3+ protein, trace ketone, small amounts of leukocyte Estrace, negative bacteria * MRSA Swab Positive * No obvious source of infection, continue to monitor * Trend & treat fever * CBC q AM Neuro: * Patient complained of his normal neuropathy discomfort in the emergency department and was permitted to take his home dose of Lyrica * Continue Lyrica inpatient * Continue home Percocet * Patient without acute unilateral neurologic deficits Resp: * Diagnosed outpatient with sleep apnea; uses nasal mask at night on CPAP * Cannot tolerate full face mask inpatient * Patient will have bring home mask tomorrow * Supplemental oxygen as required Fluids/Renal: * Creatinine of 1.4 appears to be patient's baseline; no JERRY noted * Strict I's and O's: * Pt currently greater than 6L positive with 405 UOP * Urine concentrated in Rodriguez Bag * Consider Albumin in morning if UOP has not improved * Rodriguez to gravity, remove once patient is normotensive and off pressors * Daily PRP * Electrolyte imbalances * Monitor and replace per protocol * Per CT: 15 mm hyperdense mid pole posterior left renal mass: Presumed neoplastic until proven otherwise * Renal CT scan recommended per radiology * Will defer to Dr. Buck GI/Nutrition: * Pt currently NPO except Meds * Advance diet when hypotension is resolved without pressors * Liver Test without sign of shock * Nausea: 1x dose of Zofran improved symptoms * Monitor QTc * GI Prophylaxis: Home H2 boy converted to ranitidine 150 mg PO BID Heme: * Monitor daily CBC and signs of gross bleeding * H&H WNL * DVT Prophylaxis: Heparin 5,000unit SQ q8h, Will Hold SCDs secondary to cellulitis Endocrine: * Accu-Checks per protocol, started insulin infusion for 2 blood sugars greater than 180 * No Dx of DM (December A1C: 5.4) * Repeat now * Hypothyroidism * Continue home dose Access: Right IJ inserted by Dr. Buck in the emergency department on 04/26. Left Hand PIV. No arterial line at this time with borderline htn, will consent if condition worsens CCT: 45 Minutes; This time is exclusive of all separately billable procedures. Thank you for involving us in the care of this patient. Please refer to Dr. Dale Buck's addendum for further recommendations. I have personally evaluated and examined this patient. I agree with assessment and plan of Destiney Dumont PA-C. Sepsis of unclear etiology, most likely pathogen at this time is complicated skin and soft tissue infection of left lower ext. Problem Qualifiers (1) Obesity: Obesity type: due to excess calories Obesity classification: unspecified obesity classification Serious obesity comorbidity presence: unspecified whether serious comorbidity present Qualified Codes: E66.09 - Other obesity due to excess calories
[2017-04-26] MEDS ORDERED: RANITIDINE HCL 150 MG TAB PO ONE (23:30)
[2017-04-26 23:59] VITALS: O2SAT 94
[2017-04-27] VITALS (69 sets, daily range): BP systolic 43–157; BP diastolic 30–104; PULSE 52–112; TEMP 36.6–37.2; O2SAT 88–97
[2017-04-27] MEDS ORDERED: ONDANSETRON INJ 2 MG/ML 2 ML VIAL IV STA (01:04)
[2017-04-27] MEDS: NORMOSOL R 1,000 ML IV SCH ×2 (01:25→06:40)
[2017-04-27] MEDS: PHENYLEPHRINE HCL INJ 20 MG in DEXTROSE 5% 500ML 500 ML IV PRN ×2 (01:27→04:27)
[2017-04-27] MEDS: VANCOMYCIN INJ 1,750 MG in SODIUM CHLORIDE 0.9% 500ML 500 ML IV SCH ×2 (01:28→15:40)
[2017-04-27] MEDS ORDERED: ONDANSETRON INJ 2 MG/ML 2 ML VIAL ONE (02:13)
[2017-04-27] MEDS ORDERED: PIPERACILL/TAZOBAC IV 4.5 GM in DEXTROSE 5% 100ML IV ONE (02:30)
[2017-04-27] MEDS ORDERED: PIPERACILL/TAZOBAC CONSULT ACTIVE PRN (02:30)
[2017-04-27] MEDS: LEVOTHYROXINE 25 MCG TAB PO SCH (05:49)
[2017-04-27] MEDS: CLINDAMYCIN IV 900 MG in DEXTROSE 5% 100ML 100 ML IV SCH ×3 (05:49→22:24)
[2017-04-27] MEDS: HEPARIN SOD 5000 UNIT/0.5 ML CARP SQ SCH ×3 (06:00→22:25)
[2017-04-27] MEDS ORDERED: FUROSEMIDE 40 MG/4 ML VIAL IV STA (06:19)
[2017-04-27 06:21] LABS: INR 1.5 (0.9-1.1); PARTIAL THROMBOPLASTIN RATIO 1.4; PROTHROMBIN TIME (PATIENT) 16.2 SECONDS (9.0-12.0)
[2017-04-27] MEDS ORDERED: NOREPINEPHRINE BIT INJ 8 MG in DEXTROSE 5% 500ML 500 ML IV PRN (06:33)
[2017-04-27 06:54] LABS: BUN/CREATININE RATIO 19.5 (10-20); CALCIUM 7.6 mg/dl (8.5-10.1); CREATININE 1.7 mg/dl (0.60-1.40); MAGNESIUM 1.6 mg/dl (1.8-2.4); POTASSIUM 4.4 mmol/L (3.5-5.1)
[2017-04-27 06:58] LABS: HEMATOCRIT 40.5 % (42-52); MEAN CELL VOLUME 84.9 fL (80-100); MEAN CORPUSCULAR HEMOGLOBIN 27.3 pg (25-34); MEAN CORPUSCULAR HGB CONC 32.1 g/dl (32-36); MEAN PLATELET VOLUME 10.5 fL (7.4-10.4); PLATELET COUNT 145 K/uL (130-400); RED BLOOD COUNT 4.77 M/uL (4.7-6.1); WHITE BLOOD COUNT 25.18 K/uL (4.8-10.8)
[2017-04-27] MEDS ORDERED: FUROSEMIDE 40 MG/4 ML VIAL ONE (07:02)
[2017-04-27 07:03] LABS: BASO % 0.1 %; BASO ABS # 0.02 K/uL (0-0.2); COMPLETE YES; ECHINOCYTES 1+; IG% 1.1 %; LYMPH % 2.1 %; LYMPH ABS # 0.54 K/uL (1.2-3.4); MONO % 7.5 %; NEUT % 89.2 %
[2017-04-27 07:13] LABS: ESTIMATED AVERAGE GLUCOSE 105 mg/dl; HA1C FLAG Normal (Normal)
[2017-04-27 07:24] LABS: THYROID STIMULATING HORMONE 0.837 uIu/ml (0.300-4.500)
[2017-04-27] MEDS ORDERED: PIPERACILL/TAZOBAC IV 4.5 GM in DEXTROSE 5% 100ML 100 ML IV SCH (08:00)
--- NOTE | 2017-04-27 08:03 | HISTORY & PHYSICAL EXAMINATION ---
DATE OF ADMISSION: 04/26/2017 ADMISSION ADDENDUM The patient was seen 04/26/2017 for admission. HISTORY OF PRESENT ILLNESS: This patient was initially seen by the resident doctor, Slade Slade, in addition to the meat press operator. I have seen and examined the patient independently and reviewed the notes and orders as per the resident. This is a 66-year-old male with a history of chronic lower extremity edema, morbid obesity, hyperlipidemia and asthma. He presented with a fever, was found to be hypotensive. His lower extremity is erythematous; however, he states that that is his baseline and it was unclear if he was septic from the skin source. He was admitted to the intensive care unit therefore with a diagnosis of sepsis and FUO. The patient was placed on pressors after a third liter of fluid. PHYSICAL EXAMINATION: GENERAL: The patient was awake, alert and oriented, although somnolent at the time that I saw him. HEAD AND NECK: Limited due to habitus. HEART: S1, 2 initially tachycardic with a regular rhythm. LUNGS: Clear to auscultation. ABDOMEN: Nontender, nondistended. EXTREMITIES: There is significant bilateral edema with erythema as above. PLAN: As follows: The patient has been placed on broad spectrum antibiotics with vancomycin, Zosyn and clindamycin. He is admitted to the intensive care unit. We will obtain an echocardiogram in the a.m. and are pending blood cultures to tailor antibiotic use. He is currently requiring pressor support, although only minimally. The patient was hypophosphatemic and hypomagnesemic on arrival, those are being replaced. Regarding his asthma, he will continue montelukast. Regarding his UGS, he has declined a standard ____ mask as he uses his own nasal mask and will have someone bring it in during the day. We are pending a recheck of his TSH. The patient has been placed on heparin for DVT prophylaxis and again is admitted to the intensive care unit, has been seen by the meat press operator at the time of admission and is currently stable on a low dose of pressors.
[2017-04-27] MEDS: OXYCODONE/ACETAMINOPHEN 10/325MG TAB PO PRN ×3 (08:37→13:47)
[2017-04-27] MEDS: CHOLECALCIFEROL 1000 INTER.UNIT TAB PO SCH (08:39)
[2017-04-27] MEDS: PREGABALIN 100 MG CAP PO SCH ×3 (08:39→21:05)
[2017-04-27] MEDS: CEROVITE ADV FORMULA TAB PO SCH (08:39)
[2017-04-27] MEDS: RANITIDINE HCL 150 MG TAB PO SCH ×2 (08:39→21:06)
--- NOTE | 2017-04-27 08:52 | Oncology Consultation ---
Oncology/Heme Consultation Date of Consultation: Apr 27, 2017. Attending Physician: Antonio Gunter M.D. Reason for Consultation: Left kidney mass History of Present Illness Mr. Camacho is a 66 year old man with morbid obesity, HTN, hyperlipidemia, and peripheral neuropathy. He has chronic edema in his left leg with stasis changes. He presented to the ER yesterday with fevers, diarrhea, and warmth and redness of his left leg. He was found to be hypotensive and tachycardic and is now on pressors after failing volume resuscitation. He has blood cultures that are positive for gram positive cocci, likely from his cellulitis. As part of his initial evaluation, he underwent a CT abdomen/pelvis that revealed a small ( 15 mm) left mid-pole renal mass. He has a history of kidney stones and previously followed with Dr. Francis. A CT from 2014 shows a lesion in the same area. It has clearly, though modestly, grown since then. He has other findings, like some borderline enlarged abdominal nodes and some splenules, that are unchanged from 2015. He is feeling better today, though he remains weak. Past Medical/Surgical History Medical Problems: (1) Anemia Status: Acute (2) GI bleed Status: Acute (3) Severe sepsis Status: Acute Family History Blood clots FH: diabetes mellitus FHx: pulmonary embolism Social History Smoking Status: Former Smoker (quit 32 years ago never heavy smoker) Drug Use: none Marital Status: Housing Status: lives with family Occupation Status: retired Allergies Coded Allergies: Tetracycline (Verified Allergy, Unknown, SORES IN MOUTH, 04/26/17) Home Medications Scheduled Aspirin (Aspirin Ec), 81 MG PO QPM B-Complex Vitamins (Vitamin B Complex), 1 TAB PO QAM Biotin (Biotin), 1 CAP PO DAILY Cholecalciferol (Vitamin D 1000 Unit), 1,000 INTER.UNIT PO QAM Colchicine (Colchicine), 0.3 MG PO HS Levothyroxine Sodium (Synthroid), 25 MCG PO QAM Lisinopril (Lisinopril), 20 MG PO QAM Montelukast Sodium (Singulair), 10 MG PO HS Multivitamins/Minerals (Mvi With Minerals), 1 TAB PO DAILY Naproxen (Aleve), 440 MG PO DAILY Nizatidine (Nizatidine), 150 MG PO HS Pregabalin (Lyrica), 200 MG PO TID Sildenafil Citrate (Viagra), 50 MG PO PRN Scheduled PRN Oxycodone/Acetaminophen 10MG/325MG (Percocet 10MG/325MG), 1 TAB PO TID PRN for Pain Current Inpatient Medications Current Inpatient Medications Medications (Trade) Dose Ordered Sig/[place] Route Start Time Stop Time Status Last Admin Dose Admin Ioversol (Optiray 320) 100 ml UD PRN IV 04/26/17 15:30 04/30/17 15:29 Clindamycin Phosphate 900 mg/ Dextrose 106 ml @ 100 mls/hr Q8H IV 04/27/17 06:00 04/28/17 21:59 04/27/17 05:49 100 MLS/HR Phenylephrine HCl 20 mg/Dextrose 502 ml @ 0 mls/hr Q0M PRN IV 04/26/17 20:00 05/26/17 19:59 04/27/17 04:27 102 MLS/HR Vancomycin HCl (Consult) 1 ea UD PRN N/A 04/26/17 21:15 05/26/17 21:14 Aspirin (Ecotrin Tab) 81 mg QPM PO 04/27/17 21:00 05/27/17 20:59 Cholecalciferol (Vitamin D Tab) 1,000 inter.unit QAM PO 04/27/17 09:00 05/27/17 08:59 Colchicine (Colchicine Tab) 0.3 mg HS PO 04/27/17 21:00 05/27/17 20:59 Levothyroxine Sodium (Synthroid Tab) 25 mcg DAILYBB PO 04/27/17 06:00 05/27/17 05:59 04/27/17 05:49 25 MCG Montelukast Sodium (Singulair Tab) 10 mg HS PO 04/27/17 21:00 05/27/17 20:59 Multivitamins/ Minerals (Multivitamin W/ Minerals Tab) 1 tab DAILY PO 04/27/17 09:00 05/27/17 08:59 Oxycodone/ Acetaminophen (Percocet 10-325MG Tab) 1 tab TID PRN PO 04/26/17 23:00 05/10/17 22:59 Pregabalin (Lyrica Cap) 200 mg TID PO 04/27/17 09:00 05/27/17 08:59 Ranitidine HCl (zANTac TAB) 150 mg BID PO 04/27/17 09:00 05/27/17 08:59 Parenteral Electrolyte Solution 1,000 ml @ 150 mls/hr Q6H40M IV 04/27/17 00:00 05/27/17 00:00 04/27/17 01:25 150 MLS/HR Vancomycin HCl 1750 mg/Sodium Chloride 535 ml @ 200 mls/hr Q14H IV 04/27/17 02:00 04/28/17 19:59 04/27/17 01:28 200 MLS/HR Heparin Sodium (Porcine) (Heparin Sq 5000 Unit/0.5ml) 5,000 unit Q8 SQ 04/27/17 06:00 05/27/17 05:59 Norepinephrine Bitartrate 8 mg/ Dextrose 508 ml @ 0 mls/hr Q0M PRN IV 04/27/17 06:33 05/27/17 06:32 04/27/17 07:05 13 MLS/HR Magnesium Sulfate 1 gm/Prmx 100 ml @ 100 mls/hr Q1H IV 04/27/17 08:45 04/27/17 10:44 Review of Systems Constitutional: + fever, + fatigue ENT: No nasal symptoms, No sore throat Respiratory: No cough, No shortness of breath Cardiovascular: No chest pain Abdomen: + diarrhea Musculoskeletal: + swelling, + calf pain Genitourinary - Male: No dysuria, No urinary frequency Hematologic / Lymphatic: No abnormal bleeding/bruising, No swollen lymph nodes Integumentary: + color change (erythema of his left calf) Physical Exam Date Time Temp Pulse Resp B/P (MAP) Pulse Ox O2 Delivery O2 Flow Rate FiO2 04/27/17 08:00 37.2 105 25 119/53 (75) 96 Nasal Cannula 2.0 04/27/17 08:00 96 Nasal Cannula 2.0 04/27/17 06:02 87 26 100/45 (63) 92 04/27/17 05:52 105 30 82/52 (62) 90 04/27/17 05:41 58 25 145/104 (118) 89 04/27/17 05:32 52 25 119/52 (74) 93 04/27/17 05:21 75 32 111/51 (71) 92 04/27/17 05:11 91 18 122/41 (68) 93 04/27/17 05:02 90 25 122/65 (84) 92 04/27/17 04:51 91 24 122/39 (66) 92 04/27/17 04:41 70 28 122/49 (73) 95 04/27/17 04:31 71 23 109/55 (73) 91 04/27/17 04:21 72 26 114/58 (76) 93 04/27/17 04:11 65 30 108/42 (64) 93 04/27/17 04:02 81 22 90 04/27/17 04:01 36.6 75 26 115/44 (67) 88 04/27/17 04:00 94 Room Air 04/27/17 03:54 75 20 98/57 (71) 88 04/27/17 03:51 100 31 78/60 (66) 04/27/17 03:41 70 28 99/48 (65) 93 04/27/17 03:32 74 33 98/44 (62) 94 04/27/17 03:21 65 27 96/43 (60) 95 04/27/17 03:11 73 28 108/43 (64) 91 04/27/17 03:01 79 31 111/48 (69) 95 04/27/17 02:51 67 30 102/41 (61) 95 04/27/17 02:41 64 19 101/66 (78) 94 04/27/17 02:31 82 29 115/45 (68) 94 04/27/17 02:22 71 29 126/57 (80) 93 04/27/17 02:11 101 32 116/71 (86) 96 04/27/17 02:02 72 25 96 04/27/17 02:01 66 19 109/71 (84) 97 04/27/17 01:51 93 27 114/69 (84) 96 04/27/17 01:41 93 15 110/77 (88) 96 04/27/17 01:31 95 21 114/67 (83) 96 04/27/17 01:22 93 96 21 04/27/17 01:21 63 21 102/59 (73) 97 04/27/17 01:11 66 121/57 (78) 96 04/27/17 01:01 69 16 110/70 (83) 97 04/27/17 00:42 93 25 123/86 (98) 97 04/27/17 00:31 86 12 134/76 (95) 92 04/27/17 00:21 90 12 102/53 (69) 95 04/27/17 00:16 76 17 112/55 (74) 92 04/27/17 00:12 88 12 43/30 (34) 94 04/27/17 00:02 89 11 88/46 (60) 95 04/27/17 00:02 36.8 89 11 88/46 (60) 95 04/27/17 00:00 101 12 91 04/26/17 23:59 94 Room Air 04/26/17 22:00 37.1 94 20 113/61 95 Room Air 04/26/17 21:41 36.5 98 20 153/67 96 17 21:31 81 153/67 97 Room Air 04/26/17 21:00 93 20 139/69 97 Room Air 04/26/17 20:49 98 20 111/73 97 Room Air 04/26/17 20:26 97 124/58 97 Room Air 17 19:35 96 20 88/51 97 Room Air 17 19:10 96 04/26/17 19:06 96 20 91/52 97 Room Air 04/26/17 18:51 36.5 97 20 81/50 96 Room Air 17 18:46 97 20 84/55 96 Room Air 17 18:40 96 20 86/49 97 Room Air 17 18:36 96 20 79/46 94 Room Air 17 18:31 97 20 68/47 96 Room Air 17 18:26 97 20 72/47 96 17 18:24 97 16 61/49 96 Room Air 717 18:21 97 16 66/42 96 Room Air 717 18:18 98 16 72/41 96 Room Air 717 18:12 96 20 71/41 95 Room Air 717 18:10 97 20 75/42 95 Room Air 7/17 18:06 98 20 79/43 95 7/17 18:04 97 16 78/43 96 7 18:01 100 20 69/40 96 Room Air 7/23/17 18:00 96 20 69/40 95 Room Air 04/26/17 17:57 94 20 73/39 94 Room Air 04/26/17 17:48 100 20 70/43 94 Room Air 04/26/17 17:40 52 20 75/34 94 Room Air 04/26/17 17:36 38.6 72 20 75/34 94 Room Air 04/26/17 15:18 39.9 106 20 116/64 94 04/26/17 14:27 110 20 124/45 92 Room Air 04/26/17 14:18 115 04/26/17 14:01 39.5 58 20 112/57 93 Room Air General Appearance: + mild distress, + obese Eyes: EOMI, sclerae normal ENT: pharynx normal Respiratory/Chest: lungs clear Cardiovascular: regular rate, rhythm Abdomen/GI: non tender, soft Extremities/Musculoskelatal: + calf tenderness, + inflammation (erythematous and warm left calf), + pedal edema Neurologic/Psych: alert, normal mood/affect, oriented x 3 Lymphatic: no adenopathy Laboratory Results Last 24 Hours Test 04/26/17 14:15 04/26/17 14:24 04/26/17 15:15 04/26/17 16:15 White Blood Count 7.34 K/uL Red Blood Count 5.22 M/uL Hemoglobin 14.4 g/dL Hematocrit 43.7 % Mean Corpuscular Volume 83.7 fL Mean Corpuscular Hemoglobin 27.6 pg Mean Corpuscular Hemoglobin Concent 33.0 g/dl Platelet Count 132 K/uL Mean Platelet Volume 11.5 fL Neutrophils (%) (Auto) 93.0 % Lymphocytes (%) (Auto) 3.3 % Monocytes (%) (Auto) 3.3 % Eosinophils (%) (Auto) 0.1 % Basophils (%) (Auto) 0.0 % Neutrophils # (Auto) 6.83 K/uL Lymphocytes # (Auto) 0.24 K/uL Monocytes # (Auto) 0.24 K/uL Eosinophils # (Auto) 0.01 K/uL Basophils # (Auto) 0.00 K/uL RDW Standard Deviation 44.6 fL RDW Coefficient of Variation 14.6 % Immature Granulocyte % (Auto) 0.3 % Immature Granulocyte # (Auto) 0.02 K/uL Sodium Level 141 mmol/L Potassium Level 3.9 mmol/L Chloride Level 107 mmol/L Carbon Dioxide Level 22 mmol/L Anion Gap 12.0 mmol/L Blood Urea Nitrogen 29 mg/dl Creatinine 1.40 mg/dl Est Creatinine Clear Calc Drug Dose 68.4 ml/min Estimated GFR () 59.4 Estimated GFR (Non- 51.3 BUN/Creatinine Ratio 20.8 Random Glucose 90 mg/dl Estimated Average Glucose 105 mg/dl Hemoglobin A1c 5.3 % Calcium Level 9.1 mg/dl Phosphorus Level 1.1 mg/dl Magnesium Level 1.5 mg/dl Total Bilirubin 0.8 mg/dl Direct Bilirubin 0.3 mg/dl Aspartate Amino Transf (AST/SGOT) 33 U/L Alanine Aminotransferase (ALT/SGPT) 36 U/L Alkaline Phosphatase 80 U/L Troponin I 0.021 ng/ml Total Protein 6.9 gm/dl Albumin 3.3 gm/dl Procalcitonin 5.09 ng/ml Bedside Lactic Acid Venous 2.22 mmol/L Influenza Type A Antigen Neg for Influ A Influenza Type B Antigen Neg for Influ B Urine Color DK YELLOW Urine Appearance CLOUDY Urine pH 5.0 Urine Specific [place] 1.026 Urine Protein 3+ Urine Glucose (UA) NEG Urine Ketones TRACE Urine Occult Blood NEG Urine Nitrite NEG Urine Bilirubin 1+ Urine Urobilinogen NEG Urine Leukocyte Esterase SMALL Urine WBC (Auto) 1-5 /hpf Urine RBC (Auto) 0-4 /hpf Urine Hyaline Casts (Auto) /lpf Urine Epithelial Cells (Auto) >30 /lpf Urine Bacteria (Auto) NEG Urine Renal Epithelial Cells /lpf Urine Pathogenic Casts /lpf Test 04/26/17 20:05 04/26/17 23:52 04/27/17 05:50 04/27/17 05:59 Random Cortisol 34.37 mcg/dl Bedside Glucose 98 mg/dl 103 mg/dl White Blood Count 25.18 K/uL Red Blood Count 4.77 M/uL Hemoglobin 13.0 g/dL Hematocrit 40.5 % Mean Corpuscular Volume 84.9 fL Mean Corpuscular Hemoglobin 27.3 pg Mean Corpuscular Hemoglobin Concent 32.1 g/dl Platelet Count 145 K/uL Mean Platelet Volume 10.5 fL Neutrophils (%) (Auto) 89.2 % Lymphocytes (%) (Auto) 2.1 % Monocytes (%) (Auto) 7.5 % Eosinophils (%) (Auto) 0.0 % Basophils (%) (Auto) 0.1 % Neutrophils # (Auto) 22.46 K/uL Lymphocytes # (Auto) 0.54 K/uL Monocytes # (Auto) 1.89 K/uL Eosinophils # (Auto) 0.00 K/uL Basophils # (Auto) 0.02 K/uL RDW Standard Deviation 47.7 fL RDW Coefficient of Variation 15.4 % Immature Granulocyte % (Auto) 1.1 % Immature Granulocyte # (Auto) 0.27 K/uL Echinocytes 1+ Prothrombin Time 16.2 SECONDS Prothromb Time International Ratio 1.5 Activated Partial Thromboplast Time 36.2 SECONDS Partial Thromboplastin Ratio 1.4 Sodium Level 138 mmol/L Potassium Level 4.4 mmol/L Chloride Level 108 mmol/L Carbon Dioxide Level 21 mmol/L Anion Gap 9.0 mmol/L Blood Urea Nitrogen 33 mg/dl Creatinine 1.70 mg/dl Est Creatinine Clear Calc Drug Dose 56.7 ml/min Estimated GFR () 47.0 Estimated GFR (Non- 40.5 BUN/Creatinine Ratio 19.5 Random Glucose 109 mg/dl Lactic Acid Level 2.1 mmol/L Calcium Level 7.6 mg/dl Phosphorus Level 4.0 mg/dl Magnesium Level 1.6 mg/dl Total Bilirubin 1.4 mg/dl Direct Bilirubin 0.8 mg/dl Aspartate Amino Transf (AST/SGOT) 30 U/L Alanine Aminotransferase (ALT/SGPT) 37 U/L Alkaline Phosphatase 50 U/L Total Protein 5.4 gm/dl Albumin 2.5 gm/dl Thyroid Stimulating Hormone (TSH) 0.837 uIu/ml Assessment & Plan Mr. Camacho is a morbidly obese gentleman admitted with septic shock secondary to gram positive bacteremia, likely spread from a LLE cellulitis. He had a CT that incidentally revealed a left mid-pole renal lesion concerning for a renal cell carcinoma. This lesion, in retrospect, was present on a CT from 2014, though it has grown somewhat since then. I suspect this may represent a small RCC, given that it is solid-appearing and has enlarged. However, it is growing indolently and can likely be observed with serial CTs. This is typically done by Urology, as the ultimate treatment for these lesions is partial or complete nephrectomy. He is known to Dr. Francis from urology. I would contact him and let him know about this finding, in order to ensure good continuity of care. This issue is almost certainly not impacting his current clinical condition, so I will sign off. I would be happy to return if there are additional hematologic or oncologic concerns.
[2017-04-27] MEDS: MAGNESIUM SULFATE 1GM / D5W 1 GM in PREMIXED IN D5W 100 ML IV SCH ×2 (08:59→10:05)
[2017-04-27] MEDS ORDERED: NORMOSOL R 1,000 ML IV SCH (09:00)
[2017-04-27] MEDS ORDERED: LISINOPRIL 20 MG TAB PO SCH (09:00)
--- NOTE | 2017-04-27 09:18 | EMERGENCY ROOM VISIT NOTE ---
History Report prepared by Philipp: Glenn Freeman Under the Supervision of: Dr. Breonna Mas D.O. First contact with patient: 14:08 Chief Complaint: FEVER Stated Complaint: 102.9 FEVER WILL NOT GO DOWN History of Present Illness The patient is a 66 year old male who presents to the Emergency Room with complaints of a worsening fever that started this morning. The patient rates his discomfort as a 9/10 in severity. The patient is accompanied by his who states that he has been experiencing diarrhea for the past two days. His states that she gave him medication for his diarrhea and reports that he felt fine yesterday. She reports that the patient woke up this morning around 0800 and started to experience a fever of around 101. His states that he said he was experiencing chills and tried to use a fleece blanket to warm up, but denied any relief of symptoms. She reports that she gave him Motrin around 1100 and 1300 mg of Tylenol around 1200, but states his fever still rigoberto to around 103, which prompted her to take him to the ED. The patient states that he currently is relieved of symptoms, but is experiencing pain in his feet bilaterally, which is chronic. The patient's states that the patient has a history of neuropathy of his feet, bacterial meningitis in 2002, cellulitis of his lower extremities bilaterally, and sepsis from bilateral pneumonia that occurred last year. She also reports that he had a colonoscopy done in the past and five days following the colonoscopy the patient started to experience internal bleeding. She states that he was hospitalized for this incident and was discharged home. The patient's states that following the colonoscopy experience he has been more prone to diarrhea, which is why she was not alarmed when the patient started to have diarrhea two days ago. The patient denies diabetes, cough, being around someone sick, travel, nausea, shortness of breath , hematochezia, and melena. Source of History: patient, spouse/significant other Onset: 0800 this morning Position: other (global) Symptom Intensity: 9/10 Timing: worsening Associated Symptoms: + chills, + diarrhea, No cough, No SOB, No nausea, No melena, No hematochezia Review of Systems See HPI for pertinent positives & negatives. A total of 10 systems reviewed and were otherwise negative. 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 (23) Spinal Stenosis, Lumbar Reg, W/Out Neurogenic Claudication Surgical Problems: (1) History of right hemicolectomy Family History Blood clots Social History Smoking Status: Former Smoker Drug Use: none Marital Status: Housing Status: lives with family Occupation Status: retired Current/Historical Medications Scheduled Aspirin (Aspirin Ec), 81 MG PO QPM B-Complex Vitamins (Vitamin B Complex), 1 TAB PO QAM Biotin (Biotin), 1 CAP PO DAILY Cholecalciferol (Vitamin D 1000 Unit), 1,000 INTER.UNIT PO QAM Colchicine (Colchicine), 0.3 MG PO HS Levothyroxine Sodium (Synthroid), 25 MCG PO QAM Lisinopril (Lisinopril), 20 MG PO QAM Montelukast Sodium (Singulair), 10 MG PO HS Multivitamins/Minerals (Mvi With Minerals), 1 TAB PO DAILY Naproxen (Aleve), 440 MG PO DAILY Nizatidine (Nizatidine), 150 MG PO HS Pregabalin (Lyrica), 200 MG PO TID Sildenafil Citrate (Viagra), 50 MG PO PRN Scheduled PRN Oxycodone/Acetaminophen 10MG/325MG (Percocet 10MG/325MG), 1 TAB PO TID PRN for Pain Allergies Coded Allergies: Tetracycline (Verified Allergy, Unknown, SORES IN MOUTH, 04/26/17) Physical Exam Vital Signs Date Time Temp Pulse Resp B/P (MAP) Pulse Ox O2 Delivery O2 Flow Rate FiO2 04/26/17 20:26 97 124/58 97 Room Air 04/26/17 19:35 96 20 88/51 97 Room Air 04/26/17 19:10 96 04/26/17 19:06 96 20 91/52 97 Room Air 04/26/17 18:51 36.5 97 20 81/50 96 Room Air 04/26/17 18:46 97 20 84/55 96 Room Air 04/26/17 18:40 96 20 86/49 97 Room Air 04/26/17 18:36 96 20 79/46 94 Room Air 04/26/17 18:31 97 20 68/47 96 Room Air 04/26/17 18:26 97 20 72/47 96 04/26/17 18:24 97 16 61/49 96 Room Air 04/26/17 18:21 97 16 66/42 96 Room Air 04/26/17 18:18 98 16 72/41 96 Room Air 04/26/17 18:12 96 20 71/41 95 Room Air 04/26/17 18:10 97 20 75/42 95 Room Air 04/26/17 18:06 98 20 79/43 95 04/26/17 18:04 97 16 78/43 96 04/26/17 18:01 100 20 69/40 96 Room Air 04/26/17 18:00 96 20 69/40 95 Room Air 04/26/17 17:57 94 20 73/39 94 Room Air 04/26/17 17:48 100 20 70/43 94 Room Air 04/26/17 17:40 52 20 75/34 94 Room Air 04/26/17 17:36 38.6 72 20 75/34 94 Room Air 04/26/17 15:18 39.9 106 20 116/64 94 04/26/17 14:27 110 20 124/45 92 Room Air 04/26/17 14:18 115 04/26/17 14:01 39.5 58 20 112/57 93 Room Air Physical Exam GENERAL: morbidly obese, alert, well appearing, well nourished, no distress, non -toxic EYE EXAM: normal conjunctiva, PERRL and EOM's grossly intact OROPHARYNX: no exudate, no erythema, lips, buccal mucosa, and tongue normal and mucous membranes are moist NECK: supple, no nuchal rigidity, no adenopathy, non-tender LUNGS: decreased, Clear to auscultation. Normal chest wall mechanics HEART: fast, but sounds normal. No murmurs, S1 normal and S2 normal ABDOMEN: abdomen soft, non-tender, normo-active bowel sounds, no masses, no rebound or guarding. BACK: Back is symmetrical on inspection and there is no deformity, no midline tenderness, no CVA tenderness. SKIN: no rashes and no bruising UPPER EXTREMITIES: upper extremities are grossly normal. LOWER EXTREMITIES: 1+ edema bilaterally. Bilateral erythema, worse on left side , but family states this is normal in appearance. Decreased sensation to distal lower extremities secondary to chronic neuropathy. NEURO EXAM: Normal sensorium, cranial nerves II-XII grossly intact, normal speech, no gross weakness of arms, no gross weakness of legs. Gross sensation intact. Difficulty remembering events. Medical Decision & Procedures ER Provider Diagnostic Interpretation: Radiology results have been interpreted by the radiologist and reviewed by me. CHEST ONE VIEW PORTABLE CLINICAL HISTORY: fever COMPARISON STUDY: 04/03/2016 FINDINGS: The heart is enlarged. There is no overt failure. There is no focal pulmonary consolidation. No pleural effusions are visualized.[ IMPRESSION: AP portable study. Cardiomegaly. No evidence of focal pulmonary consolidation. Electronically signed by: Mason Ariza M.D. 04/26/2017 2:46 PM Dictated Date/Time: 04/26/2017 2:[address] HEAD WITHOUT CONTRAST (CT) CLINICAL HISTORY: confusion COMPARISON STUDY: 08/29/2015 TECHNIQUE: Axial CT of the brain is performed from the vertex to the skull base. IV contrast was not administered for this examination. A dose lowering technique was utilized adhering to the principles of ALARA. CT DOSE: 687.98 mGy.cm FINDINGS: No intra or extra-axial mass lesions are visualized. There is no CT evidence of acute cortical infarction. There is no evidence of midline shift. There is no acute hemorrhage. No calvarial fractures are visualized. There are minimal white matter hypodensities likely on a small vessel basis. There is no evidence of pathologic ventricular dilatation. There is a persistent left mastoid effusion. There is a persistent left posterior parietal scalp nodule, possibly representing a sebaceous cyst. IMPRESSION: 1. Persistent left mastoid effusion 2. No acute intracranial findings 3. Left posterior parietal scalp nodule possibly representing a sebaceous cyst Electronically signed by: Mason Ariza M.D. 04/26/2017 2:57 PM Dictated Date/Time: 04/26/2017 2:[address] ABD/PELVIS IV CONTRAST ONLY CLINICAL HISTORY: Fever, diarrhea. COMPARISON STUDY: 08/29/2015 TECHNIQUE: Following the IV administration of 94 mL of Optiray-320, CT scan of the abdomen and pelvis was performed from the lung bases to the proximal femurs. Images are reviewed in the axial, sagittal, and coronal planes. IV contrast was administered without complication. A dose lowering technique was utilized adhering to the principles of ALARA. CT DOSE: 2043.58 mGy.cm FINDINGS: Lower chest: There are aortic valvular calcifications. There are basilar atelectatic changes. Liver: There is hepatic steatosis. No focal masses are visualized. Gallbladder: There are equivocal calculi. Spleen: The spleen is mildly enlarged measuring 12.7 cm. Pancreas: Unremarkable. Adrenal glands: There is an indeterminate 2 cm right adrenal gland nodule. Kidneys: There is a 15 mm hyperdense midpole posterior left renal mass. This should be presumed neoplastic until proven otherwise. A dedicated renal CT scan could be obtained in follow-up. There is a 58 mm left renal cyst. There is a complex 14 mm exophytic right renal lesion which appears smaller than on the prior study. There are lower pole left renal calculi the largest of which measures 8 mm. No ureteral or bladder calculi are visualized. Bowel: There are no transition zones indicate bowel obstruction. There are no findings to indicate acute diverticulitis. There are no findings to indicate acute appendicitis. There are postsurgical changes of a right hemicolectomy. Peritoneum: There is no intraperitoneal free air or abdominal ascites. There is small fat-containing hernias. Vasculature: The abdominal aorta is normal in course and caliber. Adenopathy: There is an 18 mm enlarged lymph node in the region of the rommel hepatis. This remains unchanged the prior study. There are borderline enlarged peripancreatic lymph nodes. There are borderline enlarged retroperitoneal lymph nodes. There is a mildly enlarged left external iliac lymph node. There are borderline enlarged left inguinal lymph nodes with mild infiltration of the surrounding fat. Pelvic viscera: The bladder, and pelvic viscera are unremarkable. Skeletal structures: No destructive osseous lesions are seen. IMPRESSION: 1. Postsurgical changes of a right hemicolectomy. 2. No evidence of bowel obstruction. No evidence of free air 3. Mild adenopathy 4. Hepatic steatosis. Mild splenomegaly 5. 2 cm right adrenal gland nodule 6. Indeterminate 15 mm left renal mass. This should be presumed neoplastic until proven otherwise. A dedicated renal CT scan or MRI could be obtained in follow-up 7. Possible cholelithiasis 8. Left-sided nephrolithiasis Electronically signed by: Mason Ariza M.D. 04/26/2017 3:57 PM Dictated Date/Time: 04/26/2017 3:46 PM Laboratory Results Test 04/26/17 14:15 04/26/17 14:24 04/26/17 15:15 04/26/17 16:15 Estimated Average Glucose 105 mg/dl Hemoglobin A1c 5.3 % (4.5-5.6) Troponin I 0.021 ng/ml (0-0.045) Procalcitonin 5.09 ng/ml (0-0.5) Bedside Lactic Acid Venous 2.22 mmol/L (0.90-1.70) Influenza Type A Antigen Neg for Influ A (NEG) Influenza Type B Antigen Neg for Influ B (NEG) Urine Color DK YELLOW Urine Appearance CLOUDY (CLEAR) Urine pH 5.0 (4.5-7.5) Urine Specific [place] 1.026 (1.000-1.030) Urine Protein 3+ (NEG) Urine Glucose (UA) NEG (NEG) Urine Ketones TRACE (NEG) Urine Occult Blood NEG (NEG) Urine Nitrite NEG (NEG) Urine Bilirubin 1+ (NEG) Urine Urobilinogen NEG (NEG) Urine Leukocyte Esterase SMALL (NEG) Urine WBC (Auto) 1-5 /hpf (0-5) Urine RBC (Auto) 0-4 /hpf (0-4) Urine Hyaline Casts (Auto) /lpf (0-5) Urine Epithelial Cells (Auto) >30 /lpf (0-5) Urine Bacteria (Auto) NEG (NEG) Urine Renal Epithelial Cells /lpf (0-5) Urine Pathogenic Casts /lpf (0) Test 04/26/17 20:05 Random Cortisol 34.37 mcg/dl Date/Time Source Procedure Growth Status 04/26/17 20:00 Stool C.difficile Toxin B Gene (PCR) - Final No C. difficile toxin B gene detected Complete Laboratory results per my review. Medications Administered Medications (Trade) Dose Ordered Sig/[place] Route Start Time Stop Time Status Last Admin Dose Admin Sodium Chloride 1,000 ml @ 999 mls/hr Q1H1M STAT IV 04/26/17 14:22 04/26/17 15:22 DC 04/26/17 14:22 999 MLS/HR Sodium Chloride 1,000 ml @ 999 mls/hr Q1H1M STAT IV 04/26/17 14:23 04/26/17 15:23 DC 04/26/17 14:23 999 MLS/HR Vancomycin HCl (Vancomycin 1gm/ 270ml Nss) 1 gm NOW STAT IV 04/26/17 15:23 04/26/17 15:25 DC 04/26/17 17:35 1 GM Piperacillin Sod/ Tazobactam Sod (Zosyn Iv) 3.375 gm NOW STAT IV 04/26/17 15:23 04/26/17 15:25 DC 04/26/17 16:18 3.375 GM Acetaminophen (Tylenol Tab) 1,000 mg NOW STAT PO 04/26/17 16:00 04/26/17 16:02 DC 04/26/17 16:20 1,000 MG Sodium Chloride 1,000 ml @ 999 mls/hr Q1H1M STAT IV 04/26/17 16:31 04/26/17 17:31 DC 04/26/17 16:31 999 MLS/HR Sodium Chloride 1,000 ml @ 999 mls/hr Q1H1M STAT IV 04/26/17 17:43 04/26/17 18:43 DC 04/26/17 17:43 999 MLS/HR Vancomycin HCl (Vancomycin 1gm/ 270ml Nss) 1 gm STK-MED ONCE .ROUTE 04/26/17 19:39 04/26/17 19:40 DC 04/26/17 19:45 1 GM Phenylephrine HCl 20 mg/Dextrose 502 ml @ 0 mls/hr Q0M PRN IV 04/26/17 20:00 05/26/17 19:59 04/27/17 04:27 102 MLS/HR Potassium Chloride (Klor-Con M10) 20 meq NOW STAT PO 04/26/17 20:17 04/26/17 20:26 DC 04/26/17 20:44 20 MEQ Magnesium Sulfate (Magnesium Sulfate) 1 gm NOW STAT IV 04/26/17 20:17 04/26/17 20:25 DC 04/26/17 20:43 1 GM Clindamycin Phosphate 900 mg/ Dextrose 106 ml @ 106 mls/hr NOW ONCE IV 04/26/17 20:30 04/26/17 21:29 DC 04/26/17 21:20 106 MLS/HR ECG Rate (beats per minute): 117 Rhythm: sinus tachycardia Findings: PVC, RBBB, other (aberrant baseline poor quality tracing) ED Course 1409: The patient was evaluated in room B07. A complete history and physical exam was performed. 1423: Sodium Chloride 1000 ml @ 999 mls/hr IV. 1516: I reevaluated the patient and he is resting comfortably. I rechecked his heart rate and it is more stable. I will order him fluids. 1523: Zosyn IV 3.375 gm IV, Vancomycin HCl 1 gm IV. 1600: Tylenol Tab 1000 mg PO. 1631: Sodium Chloride 1000 ml @ 999 mls/hr IV. 1743: Sodium Chloride 1000 ml @ 999 mls/hr IV. 1749: I reevaluated the patient and he is resting comfortably. He has no current complaints, but his pressure is low again. He is being administered fluids and antibiotics. I am currently waiting on his urine results. 181: I reevaluated the patient and he is resting comfortably. His blood pressure is still low. I am still administering fluids. 181: I discussed the patients case with Dr. Buck, [facility] [employer]. He understands the patients conditions and agrees to accept the patient. The patient will be further evaluated. 183: I reevaluated the patient and he is resting comfortably. He is still hypotensive but has no complaints. I did a repeat exam and found mild increased erythema to his lower extremity. 1849: I reevaluated the patient and he is resting comfortably. Dr. Buck is now in the room examining him. 192: I discussed the patient's case with Dr. Marshall, [facility] Hospitalist. Medical Decision The differential diagnosis includes but is not limited to: etiologies such as viral syndrome, otitis, pharyngitis, pneumonia, influenza, meningitis, urinary tract infection, sepsis, bacteremia, as well as others were entertained. Medication Reconciliation: I attest that I have personally reviewed the patient' s current medication list. Blood pressure screening: Patient was found to have normal blood pressure on screening and does not require follow-up. Pt initially presenting with fever and tachycardia triggering evaluation for possible sepsis which pt has had previously. Family reported mild confusion when fever develops but AAO on my exam at bedside. Pt with diarrhea recently but family states he frequently has this due to prior colon resection. No blood noted. No clear infectious etiology noted. Ct scans and xrays unremarkable. After VS improving with 2 L IVF, pt began to drop BP which did not respond to subsequent liter 3 and 4. Pt covered empirically with vanc/ zosyn. Discussed with need for ICU evaluation and likely central line. stated she preferred to have inspector and tester place central line due to prior difficulty and complications. While I assured her this was a standard ER procedure, she requested the inspector and tester perform this and this was discussed with Dr. Buck as this delayed TLC placement and initiation of vasopressors. Despite condition, pt reported feeling improved. He and aware of all findings and need for admission. Medication Reconcilliation Current Medication List: was personally reviewed by me Blood Pressure Screening Patient's blood pressure: Low blood pressure Consults Time Called: [id number] Consulting Physician: Dr. Buck, [facility] [employer] Returned Call: [id number] I discussed the patients case with Dr. Buck [facility] [employer]. She understands the patients conditions and agrees to accept the patient. The patient will be further evaluated. Additional Consults: Time Called: 1919 Consulted Physician: Dr. Marshall, [facility] Hospitalist Returned Call: 1919 Additional Comments: I discussed the patient's case with Dr. Marshall. Impression Primary Impression: Septic shock Additional Impressions: Confusion Diarrhea Obesity Neuropathy Critical Care I have personally spent greater than 75 minutes of critical care time in the direct management of this patient. This includes bedside care, interpretation of diagnostic studies, and testing, discussion with consultants, patient, and family members, and other required patient management activities. This 75 minutes is in excess of all separately billable procedures. Scribe Attestation The scribe's documentation has been prepared under my direction and personally reviewed by me in its entirety. I confirm that the note above accurately reflects all work, treatment, procedures, and medical decision making performed by me. Departure Information Dispostion Being Evaluated By Hospitalist Carlo Moe M.D. (PCP) Patient Instructions [facility] Problem Qualifiers Additional Impressions: Diarrhea Diarrhea type: unspecified type Qualified Codes: R19.7 - Diarrhea, unspecified Obesity Obesity type: due to excess calories Obesity classification: unspecified obesity classification Serious obesity comorbidity presence: unspecified whether serious comorbidity present Qualified Codes: E66.09 - Other obesity due to excess calories
[2017-04-27] MEDS: ASCORBIC ACID 500 MG TAB PO SCH (10:05)
--- NOTE | 2017-04-27 10:12 | Family Medicine Progress Note ---
Progress Note Date of Service Apr 27, 2017. 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 has been afebrile. denies any CP/SOB/N/V/abdominal pain. his left lower extremity is swollen and warmer to palpation Eyes: No worsening of vision ENT: No hearing loss Respiratory: No cough, No sputum, No wheezing, No shortness of breath Cardiovascular: No chest pain Breast: No breast lump Abdomen: + diarrhea (intermittent with IBS), No pain, No nausea, No vomiting Musculoskeletal: + swelling (left lower extemity ), No joint pain Male : No dysuria, No urinary frequency Neurologic: No memory loss Heme: No abnormal bleeding/bruising Medications Current Inpatient Medications Medications (Trade) Dose Ordered Sig/[place] Route Start Time Stop Time Status Last Admin Dose Admin Ioversol (Optiray 320) 100 ml UD PRN IV 04/26/17 15:30 04/30/17 15:29 Clindamycin Phosphate 900 mg/ Dextrose 106 ml @ 100 mls/hr Q8H IV 04/27/17 06:00 04/28/17 21:59 04/27/17 05:49 100 MLS/HR Phenylephrine HCl 20 mg/Dextrose 502 ml @ 0 mls/hr Q0M PRN IV 04/26/17 20:00 05/26/17 19:59 04/27/17 04:27 102 MLS/HR Vancomycin HCl (Consult) 1 ea UD PRN N/A 04/26/17 21:15 05/26/17 21:14 Aspirin (Ecotrin Tab) 81 mg QPM PO 04/27/17 21:00 05/27/17 20:59 Cholecalciferol (Vitamin D Tab) 1,000 inter.unit QAM PO 04/27/17 09:00 05/27/17 08:59 04/27/17 08:39 1,000 INTER.UNIT Colchicine (Colchicine Tab) 0.3 mg HS PO 04/27/17 21:00 05/27/17 20:59 Levothyroxine Sodium (Synthroid Tab) 25 mcg DAILYBB PO 04/27/17 06:00 05/27/17 05:59 04/27/17 05:49 25 MCG Montelukast Sodium (Singulair Tab) 10 mg HS PO 04/27/17 21:00 05/27/17 20:59 Multivitamins/ Minerals (Multivitamin W/ Minerals Tab) 1 tab DAILY PO 04/27/17 09:00 05/27/17 08:59 04/27/17 08:39 1 TAB Oxycodone/ Acetaminophen (Percocet 10-325MG Tab) 1 tab TID PRN PO 04/26/17 23:00 05/10/17 22:59 04/27/17 08:37 1 TAB Pregabalin (Lyrica Cap) 200 mg TID PO 04/27/17 09:00 05/27/17 08:59 04/27/17 08:39 200 MG Ranitidine HCl (zANTac TAB) 150 mg BID PO 04/27/17 09:00 05/27/17 08:59 04/27/17 08:39 150 MG Vancomycin HCl 1750 mg/Sodium Chloride 535 ml @ 200 mls/hr Q14H IV 04/27/17 02:00 04/28/17 19:59 04/27/17 01:28 200 MLS/HR Heparin Sodium (Porcine) (Heparin Sq 5000 Unit/0.5ml) 5,000 unit Q8 SQ 04/27/17 06:00 05/27/17 05:59 Norepinephrine Bitartrate 8 mg/ Dextrose 508 ml @ 0 mls/hr Q0M PRN IV 04/27/17 06:33 05/27/17 06:32 04/27/17 07:05 13 MLS/HR Magnesium Sulfate 1 gm/Prmx 100 ml @ 100 mls/hr Q1H IV 04/27/17 08:45 04/27/17 10:44 04/27/17 08:59 100 MLS/HR Parenteral Electrolyte Solution 1,000 ml @ 75 mls/hr [id number] IV 04/27/17 09:00 05/27/17 08:59 Ascorbic Acid (Vitamin C Tab) 1,000 mg QAM PO 04/27/17 09:00 05/27/17 08:59 Objective Vital Signs Date Time Temp Pulse Resp B/P (MAP) Pulse Ox O2 Delivery O2 Flow Rate FiO2 04/27/17 08:00 37.2 105 25 119/53 (75) 96 Nasal Cannula 2.0 04/27/17 08:00 96 Nasal Cannula 2.0 04/27/17 06:02 87 26 100/45 (63) 92 04/27/17 05:52 105 30 82/52 (62) 90 04/27/17 05:41 58 25 145/104 (118) 89 04/27/17 05:32 52 25 119/52 (74) 93 04/27/17 05:21 75 32 111/51 (71) 92 04/27/17 05:11 91 18 122/41 (68) 93 04/27/17 05:02 90 25 122/65 (84) 92 04/27/17 04:51 91 24 122/39 (66) 92 04/27/17 04:41 70 28 122/49 (73) 95 04/27/17 04:31 71 23 109/55 (73) 91 04/27/17 04:21 72 26 114/58 (76) 93 04/27/17 04:11 65 30 108/42 (64) 93 04/27/17 04:02 81 22 90 04/27/17 04:01 36.6 75 26 115/44 (67) 88 04/27/17 04:00 94 Room Air 04/27/17 03:54 75 20 98/57 (71) 88 04/27/17 03:51 100 31 78/60 (66) 04/27/17 03:41 70 28 99/48 (65) 93 04/27/17 03:32 74 33 98/44 (62) 94 04/27/17 03:21 65 27 96/43 (60) 95 04/27/17 03:11 73 28 108/43 (64) 91 04/27/17 03:01 79 31 111/48 (69) 95 04/27/17 02:51 67 30 102/41 (61) 95 04/27/17 02:41 64 19 101/66 (78) 94 04/27/17 02:31 82 29 115/45 (68) 94 04/27/17 02:22 71 29 126/57 (80) 93 04/27/17 02:11 101 32 116/71 (86) 96 04/27/17 02:02 72 25 96 04/27/17 02:01 66 19 109/71 (84) 97 04/27/17 01:51 93 27 114/69 (84) 96 04/27/17 01:41 93 15 110/77 (88) 96 04/27/17 01:31 95 21 114/67 (83) 96 04/27/17 01:22 93 96 21 04/27/17 01:21 63 21 102/59 (73) 97 04/27/17 01:11 66 121/57 (78) 96 04/27/17 01:01 69 16 110/70 (83) 97 04/27/17 00:42 93 25 123/86 (98) 97 04/27/17 00:31 86 12 134/76 (95) 92 04/27/17 00:21 90 12 102/53 (69) 95 04/27/17 00:16 76 17 112/55 (74) 92 04/27/17 00:12 88 12 43/30 (34) 94 04/27/17 00:02 89 11 88/46 (60) 95 04/27/17 00:02 36.8 89 11 88/46 (60) 95 04/27/17 00:00 101 12 91 04/26/17 23:59 94 Room Air 04/26/17 22:00 37.1 94 20 113/61 95 Room Air 04/26/17 21:41 36.5 98 20 153/67 96 04/26/17 21:31 81 153/67 97 Room Air 04/26/17 21:00 93 20 139/69 97 Room Air 04/26/17 20:49 98 20 111/73 97 Room Air 04/26/17 20:26 97 124/58 97 Room Air 04/26/17 19:35 96 20 88/51 97 Room Air 04/26/17 19:10 96 04/26/17 19:06 96 20 91/52 97 Room Air 04/26/17 18:51 36.5 97 20 81/50 96 Room Air 04/26/17 18:46 97 20 84/55 96 Room Air 04/26/17 18:40 96 20 86/49 97 Room Air 04/26/17 18:36 96 20 79/46 94 Room Air 04/26/17 18:31 97 20 68/47 96 Room Air 04/26/17 18:26 97 20 72/47 96 04/26/17 18:24 97 16 61/49 96 Room Air 04/26/17 18:21 97 16 66/42 96 Room Air 04/26/17 18:18 98 16 72/41 96 Room Air 04/26/17 18:12 96 20 71/41 95 Room Air 04/26/17 18:10 97 20 75/42 95 Room Air 04/26/17 18:06 98 20 79/43 95 04/26/17 18:04 97 16 78/43 96 04/26/17 18:01 100 20 69/40 96 Room Air 04/26/17 18:00 96 20 69/40 95 Room Air 04/26/17 17:57 94 20 73/39 94 Room Air 04/26/17 17:48 100 20 70/43 94 Room Air 04/26/17 17:40 52 20 75/34 94 Room Air 04/26/17 17:36 38.6 72 20 75/34 94 Room Air 04/26/17 15:18 39.9 106 20 116/64 94 04/26/17 14:27 110 20 124/45 92 Room Air 04/26/17 14:18 115 04/26/17 14:01 39.5 58 20 112/57 93 Room Air Physical Exam General Appearance: no apparent distress, + obese Eyes: normal inspection ENT: normal ENT inspection, hearing grossly normal, + pertinent finding ( sebaceous cyst on left side of head) Neck: supple Respiratory/Chest: chest non-tender, lungs clear, normal breath sounds, no respiratory distress, no accessory muscle use Cardiovascular: + tachycardia Abdomen: normal bowel sounds, non tender, soft Extremities: + pedal edema (Left lower extremity erythematous, warm ) Neurologic/Psychiatric: alert, normal mood/affect, oriented x 3, + sensory deficit (bilateral feet), + pertinent finding (left foot drop which is chronic) Laboratory Results 04/27/17 05:59 Red Blood Count 4.77, Mean Corpuscular Volume 84.9, Mean Corpuscular Hemoglobin 27.3, Mean Corpuscular Hemoglobin Concent 32.1, Mean Platelet Volume 10.5, Neutrophils (%) (Auto) 89.2, Lymphocytes (%) (Auto) 2.1, Monocytes (%) (Auto) 7.5, Eosinophils (%) (Auto) 0.0, Basophils (%) (Auto) 0.1, Neutrophils # (Auto) 22.46, Lymphocytes # (Auto) 0.54, Monocytes # (Auto) 1.89, Eosinophils # (Auto) 0.00, Basophils # (Auto) 0.02 04/27/17 05:59 Test 04/26/17 14:15 04/26/17 14:24 04/26/17 15:15 04/26/17 16:15 Estimated Average Glucose 105 mg/dl Hemoglobin A1c 5.3 % (4.5-5.6) Troponin I 0.021 ng/ml (0-0.045) Procalcitonin 5.09 ng/ml (0-0.5) Bedside Lactic Acid Venous 2.22 mmol/L (0.90-1.70) Influenza Type A Antigen Neg for Influ A (NEG) Influenza Type B Antigen Neg for Influ B (NEG) Urine Color DK YELLOW Urine Appearance CLOUDY (CLEAR) Urine pH 5.0 (4.5-7.5) Urine Specific [place] 1.026 (1.000-1.030) Urine Protein 3+ (NEG) Urine Glucose (UA) NEG (NEG) Urine Ketones TRACE (NEG) Urine Occult Blood NEG (NEG) Urine Nitrite NEG (NEG) Urine Bilirubin 1+ (NEG) Urine Urobilinogen NEG (NEG) Urine Leukocyte Esterase SMALL (NEG) Urine WBC (Auto) 1-5 /hpf (0-5) Urine RBC (Auto) 0-4 /hpf (0-4) Urine Hyaline Casts (Auto) /lpf (0-5) Urine Epithelial Cells (Auto) >30 /lpf (0-5) Urine Bacteria (Auto) NEG (NEG) Urine Renal Epithelial Cells /lpf (0-5) Urine Pathogenic Casts /lpf (0) Test 04/26/17 20:05 04/27/17 05:50 04/27/17 05:59 Random Cortisol 34.37 mcg/dl Bedside Glucose 103 mg/dl (70-99) White Blood Count 25.18 K/uL (4.8-10.8) Red Blood Count 4.77 M/uL (4.7-6.1) Hemoglobin 13.0 g/dL (14.0-18.0) Hematocrit 40.5 % (42-52) Mean Corpuscular Volume 84.9 fL (80-100) Mean Corpuscular Hemoglobin 27.3 pg (25-34) Mean Corpuscular Hemoglobin Concent 32.1 g/dl (32-36) Platelet Count 145 K/uL (130-400) Mean Platelet Volume 10.5 fL (7.4-10.4) Neutrophils (%) (Auto) 89.2 % Lymphocytes (%) (Auto) 2.1 % Monocytes (%) (Auto) 7.5 % Eosinophils (%) (Auto) 0.0 % Basophils (%) (Auto) 0.1 % Neutrophils # (Auto) 22.46 K/uL (1.4-6.5) Lymphocytes # (Auto) 0.54 K/uL (1.2-3.4) Monocytes # (Auto) 1.89 K/uL (0.11-0.59) Eosinophils # (Auto) 0.00 K/uL (0-0.5) Basophils # (Auto) 0.02 K/uL (0-0.2) RDW Standard Deviation 47.7 fL (36.4-46.3) RDW Coefficient of Variation 15.4 % (11.5-14.5) Immature Granulocyte % (Auto) 1.1 % Immature Granulocyte # (Auto) 0.27 K/uL (0.00-0.02) Echinocytes 1+ Prothrombin Time 16.2 SECONDS (9.0-12.0) Prothromb Time International Ratio 1.5 (0.9-1.1) Activated Partial Thromboplast Time 36.2 SECONDS (21.0-31.0) Partial Thromboplastin Ratio 1.4 Anion Gap 9.0 mmol/L (3-11) Est Creatinine Clear Calc Drug Dose 56.7 ml/min Estimated GFR () 47.0 Estimated GFR (Non- 40.5 BUN/Creatinine Ratio 19.5 (10-20) Lactic Acid Level 2.1 mmol/L (0.4-2.0) Calcium Level 7.6 mg/dl (8.5-10.1) Phosphorus Level 4.0 mg/dl (2.5-4.9) Magnesium Level 1.6 mg/dl (1.8-2.4) Total Bilirubin 1.4 mg/dl (0.2-1) Direct Bilirubin 0.8 mg/dl (0-0.2) Aspartate Amino Transf (AST/SGOT) 30 U/L (15-37) Alanine Aminotransferase (ALT/SGPT) 37 U/L (12-78) Alkaline Phosphatase 50 U/L (45-117) Total Protein 5.4 gm/dl (6.4-8.2) Albumin 2.5 gm/dl (3.4-5.0) Thyroid Stimulating Hormone (TSH) 0.837 uIu/ml (0.300-4.500) Hepatitis C Antibody Screen NEG (NEG) Date/Time Source Procedure Growth Status 04/27/17 00:00 Nasal MRSA DNA Surveillance Screen - Final Specimen Positive for MRSA by DNA Probe Complete 04/26/17 20:00 Stool C.difficile Toxin B Gene (PCR) - Final No C. difficile toxin B gene detected Complete Assessment and Plan 66 y/o M here with c/o fever , hypotension which started 1 day prior to arrival Sepsis likely secondary to left lower extremity cellulitis Meets criteria with hypotension, tachycardia, fever, elevated lactate - BC positive for G positive cocci, UC neg so far, MRSA positive, Stool cultures negative for salmonella - CT head revealed left mastoid effusion, Left posterior parietal scalp nodule which do not appear to be infected - Ct abd/pelvis: - Postsurgical changes of a right hemicolectomy. - No evidence of bowel obstruction. No evidence of free air - Mild adenopathy - Hepatic steatosis. Mild splenomegaly - Possible cholelithiasis - Left-sided nephrolithiasis - Echo: * Technically limited study. * Left ventricular systolic function is normal. * No regional wall motion abnormalities noted. * Ejection Fraction = 60-65%. * Grade I diastolic dysfunction, (abnormal relaxation pattern). - US doppler left lower extremity negative - Currently on Levophed for hypotension - Continue vancomycin, clindamycin Renal mass on CT: - stable since 2014, followed by urology - Appreciate Hematology/oncology recs Right adrenal gland nodule: - likely incidentaloma Hypophosphatemia/Hypermagnesemia - repleted GERD - Ranitidine 150mg PO BID Asthma - continue montelukast GUS - continue CPAP at night Peripheral Neuropathy - continue pregabalin Hypothyroidism - continue levothyroxine 25 mcg DVT Prophylaxis - heparin 5000 units SQ Q8H Code - Full Disposition - Monitored in ICU Resident Physician Supervision Note: I interviewed and examined the patient. Discussed with Dr. Negron and agree with findings and plan as documented in the note. Any exceptions or clarifications are listed here: None Documented By: Humberto Ramirez feeling better. leg red. painful but not as bad as prior infections. updated pt and extensively. vitals noted nad breathing unlabored no pallor or icterus cellulitis / sepsis / bacteremia - improving. continue vanco (and clinda for toxin mediation) can dc zosyn. ongoing supportive care Resident Tracking Resident Involvement: Resident Care Provided Care Provided: Adult Hospital Medicine
--- NOTE | 2017-04-27 12:28 | DIAGNOSTIC IMAGING REPORT ---
LEFT VENOUS DOPP LOWER EXT UNILAT CLINICAL HISTORY: LE swelling and erythema and warmth pain. Edema. TECHNIQUE: Venous Doppler COMPARISON STUDY: None FINDINGS: Normal venous flow throughout. Compressibility and augmentation characteristics are unremarkable. IMPRESSION: Normal venous Doppler left leg The above report was generated using voice recognition software. It may contain grammatical, syntax or spelling errors. Electronically signed by: Aníbal Mancini M.D. 04/27/2017 12:27 PM Dictated Date/Time: 04/27/2017 12:26 PM
--- NOTE | 2017-04-27 15:45 | ECHOCARDIOGRAM REPORT ---
*NOTICE TO RECEIVING LIBERTARIAN AGENCY This information is strictly Confidential and protected under [place] law. [place] law prohibits you from making any further disclosure of this information unless further disclosure is expressly permitted by the written consent of the person to whom it pertains or is authorized by law. A general authorization for the release of medical or other information is not sufficient for this purpose. Hospital accepts no responsibility if the information is made available to any other person, INCLUDING THE PATIENT. Interpretation Summary * Name: AMANDA WILLARD Study Date: 04/27/2017 07:14 AM BP: 115/44 mmHg * [facility]\S\1 HR: 116 * : 1950 (M/d/yyyy) Gender: Male Height: 70 in * Age: 66 yrs Ethnicity: [place] Weight: 286 lb * Ordering Physician: Dale Buck * Referring Physician: Self, Referred * Performed By: Amadou Jose RCS * * Reason For Study: LBBB * BSA: 2.4 m2 * -- Conclusions -- * Technically limited study. * Left ventricular systolic function is normal. * No regional wall motion abnormalities noted. * Ejection Fraction = 60-65%. * Grade I diastolic dysfunction, (abnormal relaxation pattern). Procedure Details * A contrast injection of Definity was performed to improve assessment of LV function. * Contrast was injected into an intravenous site in the central line. * One vial of Definity ultrasound contrast was diluted in normal saline to a total volume of 10 ml. A total of '4' ml of solution was administered during imaging. * Lot # [id number] of Definity utilized for procedure. * Expiration date [id number]. * The attending nurse who injected the contrast agent was JOHANNY BRYANT RN. Left Ventricle * The left ventricle is normal in size. * There is normal left ventricular wall thickness. * Ejection Fraction = 60-65%. * Left ventricular systolic function is normal. * No regional wall motion abnormalities noted. Right Ventricle * The right ventricle is not well visualized. * The right ventricular systolic function is normal as assessed by tricuspid annular plane systolic excursion (TAPSE) (normal >1.5 cm). Atria * The left atrium is mildly dilated. * Right atrium not well visualized. * Atrial septum difficult to fully evaluate. Mitral Valve * The mitral valve is grossly normal. * There is no mitral valve stenosis. * Significant mitral regurgitation is absent. Tricuspid Valve * The tricuspid valve is not well visualized, but is grossly normal. * Significant tricuspid regurgitation is absent. Aortic Valve * The aortic valve is not well visualized. * The aortic valve opens well. * Aortic valve sclerosis moderate, without significant aortic valvular stenosis. Pulmonic Valve * The pulmonary valve is not well seen, but the Doppler examination is normal without significant regurgitation or stenosis. Great Vessels * The aortic root is normal size. Pericardium/Pleural * There is no pericardial effusion. Left Ventricular Diastolic Function * Grade I diastolic dysfunction, (abnormal relaxation pattern). MMode 2D Measurements and Calculations IVSd 0.98 cm LVIDd 5.5 cm LVIDs 2.8 cm LVPWd 0.99 cm IVS/LVPW 0.99 FS 48.6 % EDV(Teich) 145.1 ml ESV(Teich) 29.7 ml EF(Teich) 79.5 % EDV(cubed) 162.9 ml ESV(cubed) 22.1 ml EF(cubed) 86.4 % LV mass(C)d 205.8 grams LV mass(C)dI 84.7 grams/m\S\2 SV(Teich) 115.4 ml SI(Teich) 47.5 ml/m\S\2 SV(cubed) 140.8 ml SI(cubed) 58.0 ml/m\S\2 Ao root diam 3.0 cm Ao root area 6.8 cm\S\2 LVOT diam 2.3 cm LVOT area 4.1 cm\S\2 LVAd ap4 26.8 cm\S\2 LVLd ap4 8.8 cm EDV(MOD-sp4) 67.3 ml EDV(sp4-el) 69.3 ml LVAs ap4 17.7 cm\S\2 LVLs ap4 7.3 cm ESV(MOD-sp4) 35.0 ml ESV(sp4-el) 36.6 ml EF(MOD-sp4) 48.1 % EF(sp4-el) 47.2 % LVAd ap2 19.3 cm\S\2 LVLd ap2 7.5 cm EDV(MOD-sp2) 40.0 ml EDV(sp2-el) 42.2 ml LVAs ap2 12.0 cm\S\2 LVLs ap2 6.6 cm ESV(MOD-sp2) 17.4 ml ESV(sp2-el) 18.5 ml EF(MOD-sp2) 56.6 % EF(sp2-el) 56.3 % LVLd %diff -16.86 % EDV(MOD-bp) 55.9 ml LVLs %diff -10.21 % ESV(MOD-bp) 25.8 ml EF(MOD-bp) 53.9 % SV(MOD-sp4) 32.4 ml SI(MOD-sp4) 13.3 ml/m\S\2 SV(MOD-sp2) 22.6 ml SI(MOD-sp2) 9.3 ml/m\S\2 SV(MOD-bp) 30.1 ml SI(MOD-bp) 12.4 ml/m\S\2 SV(sp4-el) 32.7 ml SI(sp4-el) 13.5 ml/m\S\2 SV(sp2-el) 23.8 ml SI(sp2-el) 9.8 ml/m\S\2 Doppler Measurements and Calculations Ao V2 max 162.9 cm/sec Ao max PG 10.6 mmHg Ao max PG (full) 5.1 mmHg CASSY(V,A) 3.0 cm\S\2 CASSY(V,D) 3.0 cm\S\2 LV V1 max PG 5.5 mmHg LV V1 max 117.1 cm/sec
--- NOTE | 2017-04-27 16:51 | Critical Care Progress Note ---
Critical Care Progress Note Date of Service Apr 27, 2017. ICU Day ICU Day Number: [address] Ortiz Subjective The patient was seen and examined at bedside. No acute overnight events. Pt's blood cultures are positive from Gram +'ve cocci. Additional history: pt reports chronic LLE erythema and foot drop due to unknown primary cause, may be related to bacterial meningitis that pt was previously hospitalized for. Pt however states that his leg lower extremity isn 't usually warm like it is now. Patient is resting comfortably in bed. Denies having any pain. Eating and urinating well. Plan of care was described to the patient and all questions were answered. Objective Gen: No acute distress. HEENT: Head - normocephalic and atraumatic. Pupils are equal, round, and reactive to light. Extraocular eye muscles are intact and sclera are anicteric. Ears - bilaterally patent canals with noninjected tympanic membranes and no evidence of hemotympanum. Nose - moist nasal mucosa without discharge. Mouth - moist buccal mucosa. Oropharynx is nonerythematous and there is no tonsillar exudate or edema noted. Neck: Supple; no JVD, nuchal rigidity, cervical lymphadenopathy, or auscultated bruits. Heart: Regular rate and rhythm. There is a normal S1 and S2 with no murmurs, clicks, or gallops appreciated. Lungs: Clear to auscultation bilaterally with no wheezes, rales, or rhonchi. Abdomen: Soft, completely nontender, nondistended, with good bowel sounds. There are no palpable pulsatile masses or hepatosplenomegaly. There is no guarding, rigidity, or rebound noted. Extremities:Left extremity: Area of indurated erythema over the anterior, medial and lateral aspect of left leg. 2+ pitting edema. Pt has noticeable decreased ROM in the left leg (chronic) of unknown etiology. Distal pulses 2+ bilaterally. 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 1.5cm clean laceration at bottom of left foot, no signs of infection or inflammation. Marker outline applied to left leg erythema border at approx 11am on 04/27/17. RLE: non edematous, no skin changes. FROM. Neuro:The patient is awake and alert, oriented to day, time, and place. There are no cerebellar signs. Current SOFA Score SOFA Score Response (Comments) Value Platelets (x10) < 150 1 Bilirubin (mg/dL) < 1.2 0 [place] [employer] Coma Score 15 0 Level of Hypotension No Hypotension 0 Creatinine (mg/dL) 1.2 - 1.9 1 Total 2 Assessment & Plan Reason Critically Ill: Patient is an 66-year-old male who is transferred to the ICU for hypotension 2/2 Gram positive bacteremia s/p fluid resuscitation. Source is likely the left lower extremity. Pt is currently being weaned off pressors. CV: * Wean phenylephrine as tolerated; goal MAP >65 * Rate 0.5 with MAP of 67 * Hold Home Hypertension Medications * EKG in emergency department and significant ectopy which calculated a QTC of greater than 600; recalculated and ICU as 469 * EKG today - no significant change was found, will repeat in AM. * Ectopy greatly improved after fluid resuscitation and electrolyte initiation * Trans esophageal echo - grossly normal, consider MATY if patient does not improve. * Monitor on telemetry * Continue ASA 81mg daily (on as outpatient). ID: * Infectious source is likely left lower leg cellulitis. * Blood cultures grew Gram positive cocci. We await sensitivities. * WBC today 25.18. * continue Vancomycin and Clindamycin. * Vitamin C 1g daily. Neuro: * Patient complained of his normal neuropathy discomfort in the emergency department and was permitted to take his home dose of Lyrica * Continue Lyrica 200mg TID. * Continue home Percocet 1 tab TID PRN pain. Resp: * Diagnosed outpatient with sleep apnea; uses nasal mask at night on CPAP * Cannot tolerate full face mask inpatient * Patient will have bring home mask tomorrow * Supplemental oxygen as required Fluids/Renal: * Creatinine slightly elevated to 1.7, baseline 1.4. * Pt's output overnight was approximately 50mls/hr. * Rodriguez to gravity, remove once patient is normotensive and off pressors * Daily PRP * Continue Normosol 75mls/hr * Per CT: 15 mm hyperdense mid pole posterior left renal mass: Presumed neoplastic until proven otherwise * Pt will need follow up with urology as outpatient. GI/Nutrition: * Diet: Heart Healthy * GI Prophylaxis: continue Ranitidine 150 mg PO BID Heme: * Hgb 13.0, platelets 145K * DVT Prophylaxis: Left Lower extremity dopper negative, continue Heparin 5, 000unit SQ q8h. * continue to monitor. Endocrine: * Accu-Checks per protocol, started insulin infusion for 2 blood sugars greater than 180 * A1C: 5.3 * Hypothyroidism: continue 25mcg Synthroid daily. Critical care attending addendum Patient seen and examined together with Dr Hurtado I agree with most of his findings, assessment and plan On very low dose of Levophed, weaning off Continue Abx, f/u GPC identification Repeat Blood cultures 3 days apart. If positive again, will require MATY 2DEcho reviewed. No significant change from 2015 Check LE doppler To use his own CPAP machine Tolerating diet DVT prophylaxis SC heparin Critical care time spent greater than 30 minutes Consults & Procedures Consultants: Heme/Onc - Dr. Finch (signed off) Procedures: NA Data Medications: Current Inpatient Medications Medications (Trade) Dose Ordered Sig/[place] Route Start Time Stop Time Status Last Admin Dose Admin Ioversol (Optiray 320) 100 ml UD PRN IV 04/26/17 15:30 04/30/17 15:29 Clindamycin Phosphate 900 mg/ Dextrose 106 ml @ 100 mls/hr Q8H IV 04/27/17 06:00 04/28/17 21:59 04/27/17 13:46 100 MLS/HR Vancomycin HCl (Consult) 1 ea UD PRN N/A 04/26/17 21:15 05/26/17 21:14 Aspirin (Ecotrin Tab) 81 mg QPM PO 04/27/17 21:00 05/27/17 20:59 Cholecalciferol (Vitamin D Tab) 1,000 inter.unit QAM PO 04/27/17 09:00 05/27/17 08:59 04/27/17 08:39 1,000 INTER.UNIT Colchicine (Colchicine Tab) 0.3 mg HS PO 04/27/17 21:00 05/27/17 20:59 Levothyroxine Sodium (Synthroid Tab) 25 mcg DAILYBB PO 04/27/17 06:00 05/27/17 05:59 04/27/17 05:49 25 MCG Montelukast Sodium (Singulair Tab) 10 mg HS PO 04/27/17 21:00 05/27/17 20:59 Multivitamins/ Minerals (Multivitamin W/ Minerals Tab) 1 tab DAILY PO 04/27/17 09:00 8/23/17 08:59 04/27/17 08:39 1 TAB Oxycodone/ Acetaminophen (Percocet 10-325MG Tab) 1 tab TID PRN PO 04/26/17 23:00 05/10/17 22:59 04/27/17 13:47 1 TAB Pregabalin (Lyrica Cap) 200 mg TID PO 04/27/17 09:00 05/27/17 08:59 04/27/17 13:46 200 MG Ranitidine HCl (zANTac TAB) 150 mg BID PO 04/27/17 09:00 05/27/17 08:59 04/27/17 08:39 150 MG Vancomycin HCl 1750 mg/Sodium Chloride 535 ml @ 200 mls/hr Q14H IV 04/27/17 02:00 05/10/17 01:59 04/27/17 15:40 200 MLS/HR Heparin Sodium (Porcine) (Heparin Sq 5000 Unit/0.5ml) 5,000 unit Q8 SQ 04/27/17 06:00 05/27/17 05:59 04/27/17 13:50 5,000 UNIT Norepinephrine Bitartrate 8 mg/ Dextrose 508 ml @ 0 mls/hr Q0M PRN IV 04/27/17 06:33 05/27/17 06:32 04/27/17 07:05 13 MLS/HR Parenteral Electrolyte Solution 1,000 ml @ 75 mls/hr [id number] IV 04/27/17 09:00 05/27/17 08:59 04/27/17 10:05 75 MLS/HR Ascorbic Acid (Vitamin C Tab) 1,000 mg QAM PO 04/27/17 09:00 05/27/17 08:59 04/27/17 10:05 1,000 MG I & O: 24-Hour Column 04/28/17 08:00 Intake Total 1132 ml Output Total 900 ml Balance 232 ml Vital Signs: Date Time Temp Pulse Resp B/P (MAP) Pulse Ox O2 Delivery O2 Flow Rate FiO2 04/27/17 14:00 36.7 103 21 126/49 (74) 90 Room Air 04/27/17 12:00 92 Nasal Cannula 04/27/17 12:00 36.7 99 27 112/57 (75) 94 Room Air 04/27/17 10:00 37.2 102 25 119/52 (74) 91 Room Air 04/27/17 08:00 37.2 105 25 119/53 (75) 96 Nasal Cannula 2.0 04/27/17 08:00 Nasal Cannula 04/27/17 08:00 96 Nasal Cannula 2.0 04/27/17 06:02 87 26 100/45 (63) 92 04/27/17 05:52 105 30 82/52 (62) 90 04/27/17 05:41 58 25 145/104 (118) 89 04/27/17 05:32 52 25 119/52 (74) 93 04/27/17 05:21 75 32 111/51 (71) 92 04/27/17 05:11 91 18 122/41 (68) 93 04/27/17 05:02 90 25 122/65 (84) 92 04/27/17 04:51 91 24 122/39 (66) 92 04/27/17 04:41 70 28 122/49 (73) 95 04/27/17 04:31 71 23 109/55 (73) 91 04/27/17 04:21 72 26 114/58 (76) 93 04/27/17 04:11 65 30 108/42 (64) 93 04/27/17 04:02 81 22 90 04/27/17 04:01 36.6 75 26 115/44 (67) 88 04/27/17 04:00 94 Room Air 04/27/17 03:54 75 20 98/57 (71) 88 04/27/17 03:51 100 31 78/60 (66) 04/27/17 03:41 70 28 99/48 (65) 93 04/27/17 03:32 74 33 98/44 (62) 94 04/27/17 03:21 65 27 96/43 (60) 95 04/27/17 03:11 73 28 108/43 (64) 91 04/27/17 03:01 79 31 111/48 (69) 95 04/27/17 02:51 67 30 102/41 (61) 95 04/27/17 02:41 64 19 101/66 (78) 94 04/27/17 02:31 82 29 115/45 (68) 94 04/27/17 02:22 71 29 126/57 (80) 93 04/27/17 02:11 101 32 116/71 (86) 96 04/27/17 02:02 72 25 96 04/27/17 02:01 66 19 109/71 (84) 97 04/27/17 01:51 93 27 114/69 (84) 96 04/27/17 01:41 93 15 110/77 (88) 96 04/27/17 01:31 95 21 114/67 (83) 96 04/27/17 01:22 93 96 21 04/27/17 01:21 63 21 102/59 (73) 97 04/27/17 01:11 66 121/57 (78) 96 04/27/17 01:01 69 16 110/70 (83) 97 04/27/17 00:42 93 25 123/86 (98) 97 04/27/17 00:31 86 12 134/76 (95) 92 04/27/17 00:21 90 12 102/53 (69) 95 04/27/17 00:16 76 17 112/55 (74) 92 04/27/17 00:12 88 12 43/30 (34) 94 04/27/17 00:02 89 11 88/46 (60) 95 04/27/17 00:02 36.8 89 11 88/46 (60) 95 04/27/17 00:00 101 12 91 04/26/17 23:59 94 Room Air 04/26/17 22:00 37.1 94 20 113/61 95 Room Air 04/26/17 21:41 36.5 98 20 153/67 96 04/26/17 21:31 81 153/67 97 Room Air 04/26/17 21:00 93 20 139/69 97 Room Air 04/26/17 20:49 98 20 111/73 97 Room Air 04/26/17 20:26 97 124/58 97 Room Air 04/26/17 19:35 96 20 88/51 97 Room Air 04/26/17 19:10 96 04/26/17 19:06 96 20 91/52 97 Room Air 04/26/17 18:51 36.5 97 20 81/50 96 Room Air 04/26/17 18:46 97 20 84/55 96 Room Air 04/26/17 18:40 96 20 86/49 97 Room Air 04/26/17 18:36 96 20 79/46 94 Room Air 04/26/17 18:31 97 20 68/47 96 Room Air 04/26/17 18:26 97 20 72/47 96 04/26/17 18:24 97 16 61/49 96 Room Air 04/26/17 18:21 97 16 66/42 96 Room Air 04/26/17 18:18 98 16 72/41 96 Room Air 04/26/17 18:12 96 20 71/41 95 Room Air 04/26/17 18:10 97 20 75/42 95 Room Air 04/26/17 18:06 98 20 79/43 95 04/26/17 18:04 97 16 78/43 96 04/26/17 18:01 100 20 69/40 96 Room Air 04/26/17 18:00 96 20 69/40 95 Room Air 04/26/17 17:57 94 20 73/39 94 Room Air 04/26/17 17:48 100 20 70/43 94 Room Air 04/26/17 17:40 52 20 75/34 94 Room Air 04/26/17 17:36 38.6 72 20 75/34 94 Room Air Laboratory Results: Last 24 Hours Test 04/26/17 20:05 04/26/17 23:52 04/27/17 05:50 04/27/17 05:59 Random Cortisol 34.37 mcg/dl Bedside Glucose 98 mg/dl 103 mg/dl White Blood Count 25.18 K/uL Red Blood Count 4.77 M/uL Hemoglobin 13.0 g/dL Hematocrit 40.5 % Mean Corpuscular Volume 84.9 fL Mean Corpuscular Hemoglobin 27.3 pg Mean Corpuscular Hemoglobin Concent 32.1 g/dl Platelet Count 145 K/uL Mean Platelet Volume 10.5 fL Neutrophils (%) (Auto) 89.2 % Lymphocytes (%) (Auto) 2.1 % Monocytes (%) (Auto) 7.5 % Eosinophils (%) (Auto) 0.0 % Basophils (%) (Auto) 0.1 % Neutrophils # (Auto) 22.46 K/uL Lymphocytes # (Auto) 0.54 K/uL Monocytes # (Auto) 1.89 K/uL Eosinophils # (Auto) 0.00 K/uL Basophils # (Auto) 0.02 K/uL RDW Standard Deviation 47.7 fL RDW Coefficient of Variation 15.4 % Immature Granulocyte % (Auto) 1.1 % Immature Granulocyte # (Auto) 0.27 K/uL Echinocytes 1+ Prothrombin Time 16.2 SECONDS Prothromb Time International Ratio 1.5 Activated Partial Thromboplast Time 36.2 SECONDS Partial Thromboplastin Ratio 1.4 Sodium Level 138 mmol/L Potassium Level 4.4 mmol/L Chloride Level 108 mmol/L Carbon Dioxide Level 21 mmol/L Anion Gap 9.0 mmol/L Blood Urea Nitrogen 33 mg/dl Creatinine 1.70 mg/dl Est Creatinine Clear Calc Drug Dose 56.7 ml/min Estimated GFR () 47.0 Estimated GFR (Non- 40.5 BUN/Creatinine Ratio 19.5 Random Glucose 109 mg/dl Lactic Acid Level 2.1 mmol/L Calcium Level 7.6 mg/dl Phosphorus Level 4.0 mg/dl Magnesium Level 1.6 mg/dl Total Bilirubin 1.4 mg/dl Direct Bilirubin 0.8 mg/dl Aspartate Amino Transf (AST/SGOT) 30 U/L Alanine Aminotransferase (ALT/SGPT) 37 U/L Alkaline Phosphatase 50 U/L Total Protein 5.4 gm/dl Albumin 2.5 gm/dl Thyroid Stimulating Hormone (TSH) 0.837 uIu/ml Hepatitis C Antibody Screen NEG Test 04/27/17 11:10 04/27/17 11:48 Lactic Acid Level 1.7 mmol/L Bedside Glucose (other) 116 mg/dl Resident Involvement: Resident Care Provided Care Provided: Adult Hospital Medicine
[2017-04-27] MEDS ORDERED: NURSING VERBAL MED ORDER ONE (19:15)
[2017-04-27] MEDS ORDERED: CALCIUM CHLORIDE 10% 10 ML SYR IV ONE (19:30)
[2017-04-27] MEDS ORDERED: COLCHICINE 0.6 MG TAB PO SCH (21:00)
[2017-04-27] MEDS: MONTELUKAST SOD 10 MG TAB PO SCH (21:06)
[2017-04-27] MEDS: ASPIRIN 81 MG ECTAB PO SCH (21:07)
[2017-04-28] VITALS (69 sets, daily range): BP systolic 81–159; BP diastolic 38–81; PULSE 46–103; TEMP 36.8–38.4; O2SAT 83–100
[2017-04-28] MEDS ORDERED: VANCOMYCIN TROUGH ONE (05:30)
[2017-04-28] MEDS: VANCOMYCIN INJ 1,750 MG in SODIUM CHLORIDE 0.9% 500ML 500 ML IV SCH (05:56)
[2017-04-28] MEDS: CLINDAMYCIN IV 900 MG in DEXTROSE 5% 100ML 100 ML IV SCH ×2 (05:56→13:33)
[2017-04-28] MEDS: LEVOTHYROXINE 25 MCG TAB PO SCH (05:56)
[2017-04-28] MEDS: HEPARIN SOD 5000 UNIT/0.5 ML CARP SQ SCH ×3 (05:57→21:12)
[2017-04-28 06:25] LABS: INR 1.5 (0.9-1.1); PARTIAL THROMBOPLASTIN RATIO 1.6; PROTHROMBIN TIME (PATIENT) 16.5 SECONDS (9.0-12.0)
[2017-04-28 06:49] LABS: HEMATOCRIT 37.3 % (42-52); MEAN CELL VOLUME 87.6 fL (80-100); MEAN CORPUSCULAR HEMOGLOBIN 28.2 pg (25-34); MEAN CORPUSCULAR HGB CONC 32.2 g/dl (32-36); MEAN PLATELET VOLUME 12.4 fL (7.4-10.4); PLATELET COUNT 117 K/uL (130-400); RED BLOOD COUNT 4.26 M/uL (4.7-6.1); WHITE BLOOD COUNT 19.61 K/uL (4.8-10.8)
[2017-04-28 06:52] LABS: BASO % 0.2 %; BASO ABS # 0.03 K/uL (0-0.2); COMPLETE YES; ECHINOCYTES 1+; IG% 0.7 %; LYMPH ABS # 1.17 K/uL (1.2-3.4); MONO % 8.2 %; NEUT % 84.9 %; PLT ESTIMATE DECREASED
[2017-04-28 06:54] LABS: BUN/CREATININE RATIO 18.1 (10-20); CALCIUM 8.1 mg/dl (8.5-10.1); CREATININE 2.4 mg/dl (0.60-1.40); MAGNESIUM 2.2 mg/dl (1.8-2.4); PHOSPHORUS 4.6 mg/dl (2.5-4.9); POTASSIUM 4.3 mmol/L (3.5-5.1)
--- NOTE | 2017-04-28 07:30 | DIAGNOSTIC IMAGING REPORT ---
CHEST ONE VIEW PORTABLE CLINICAL HISTORY: Routine COMPARISON STUDY: Chest radiograph April 26, 2017. FINDINGS: A right internal jugular central line remains in place. There is no pneumothorax. Cardiomegaly is unchanged. There is no evidence of pulmonary edema. Lung volumes are diminished. This is unchanged. There are hazy bibasilar opacities. IMPRESSION: 1. Hazy bibasilar opacities. Atelectasis or epicardial fat pad is favored although an infectious process could appear similar. 2. Stable cardiomegaly without evidence of pulmonary edema. Electronically signed by: Farhan Tavarez M.D. 04/28/2017 7:29 AM Dictated Date/Time: 04/28/2017 7:27 AM
--- NOTE | 2017-04-28 07:52 | Clinical Documentation Query ---
CLINICAL DOCUMENTATION QUERY 66-y/o male who presents with fever. Sepsis has been well documented in daily progress notes. Hematology consult has noted this patient presenting in septic shock. This patient presented with hypotension unresolved by bolus thus requiring pressor to maintain adequate BP. In your clinical opinion is this patient being managed for: ( x ) Severe sepsis with septic shock ( ) Other explanation of clinical findings (Please Explain) ( ) Unable to determine (Please Define) ( ) Need to Discuss ( ) Not Agree Please clarify and document your clinical opinion in the progress notes and discharge summary. Terms such as "probable", "suspected", "likely", "questionable", "possible", or "still to be ruled out" are acceptable. IF IN AGREEMENT, YOU MUST DOCUMENT ABOVE DIAGNOSTIC STATEMENT IN DAILY PROGRESS NOTES AND DISCHARGE SUMMARY. This document is not part of the patient's record. Thank You, Gopal Rico, AYO [phone]
[2017-04-28] MEDS: ASCORBIC ACID 500 MG TAB PO SCH (08:26)
[2017-04-28] MEDS: CHOLECALCIFEROL 1000 INTER.UNIT TAB PO SCH (08:26)
[2017-04-28] MEDS: CEROVITE ADV FORMULA TAB PO SCH (08:27)
[2017-04-28] MEDS: RANITIDINE HCL 150 MG TAB PO SCH (08:27)
[2017-04-28] MEDS: PREGABALIN 100 MG CAP PO SCH ×4 (08:32→21:00)
[2017-04-28] MEDS: OXYCODONE/ACETAMINOPHEN 10/325MG TAB PO PRN ×3 (08:33→13:55)
[2017-04-28] MEDS ORDERED: NURSING VERBAL MED ORDER ONE ×2 (09:15→19:00)
--- NOTE | 2017-04-28 09:43 | Pharmacy Progress Note ---
Pharmacy Abx Dose Short Note Date of Service Apr 28, 2017. Assessment & Plan Assessment * 66 year old male receiving VANCOMYCIN 1750mg IV Q 14 hrs and CLINDAMYCIN 900mg IV Q 8 hours for treatment of gram + cocci bacteremia (in 2 of 2 BLCX's) in the setting of LLE cellulitis and + MRSA nares colonization. He also has a h /o bacterial meningitis(uncertain of organism), MRSA pnx and h/o GBS bacteremia in the past. * BLCXs remain reported as GPC, ID of organism and sensitivities still pending * Today is day # 3 ABX therapy, likely duration of abx 14 days * He has been hypotensive at times and did require pressor support with phenylephrine, then with norepinephrine, however the norepi was titrated off yesterday evening. This morning however the patient will be restarting norepi due to variable and sometimes low MAPs combined with reduced U.O. and worsening JERRY * SCr increasing 1.2-->1.4-->1.7-->2.4 * Proc 5.09 elevated on admission Plan Vancomycin * Trough level of 27.4 mcg/mL is supratherapeutic and secondary to worsening renal fxn. Prior doses had been given at appropriate times. Level was drawn at the appropriate time. * Patient did receive the full dose of vancomycin 1750mg this AM; will place further doses on hold at this time. I estimate the half-life of vanco to be 18 + hours in this patient. He should not need redosed until tomorrow at some point. Will recheck random vancomycin level with AM labs tomorrow. Given his changing renal fxn it is difficult to determine a maintenance dose for him. If his SCr stabilizes over the next day or two a maint regimen may be calculated more easily. * Hopefully BLCX's will ID organism and show sensitivities today and perhaps we can use an alternative agent with less renal clearance and lower nephrotoxicity risk Clindamycin * was ordered only for 48 hs for it's antitoxin effects. * current dose appropriate Pharmacy will continue to follow and will adjust dose/frequency as necessary. Thank you.
[2017-04-28] MEDS: ALBUMIN HUMAN 25% 12.5 GM/50 ML VIAL IV SCH ×2 (09:44→17:16)
--- NOTE | 2017-04-28 11:56 | Critical Care Progress Note ---
Critical Care Progress Note Date of Service Apr 28, 2017. ICU Day ICU Day Number: [address] Ortiz Subjective The patient was seen and examined at bedside. No acute overnight events. Pt continues to be on Levophed. According to nurse pt was slightly confused today, was reaching for his incentive spirometer when he was supposed to be reaching for his water. Pt has been producing a lot of urine. Patient is resting comfortably in bed. Denies having any pain. Eating and urinating well. Pt is oriented to person, place and time. When asked who the President was pt report it was "Wisam Marroquin". Plan of care was described to the patient and all questions were answered. Objective Gen: No acute distress. HEENT: Head - normocephalic and atraumatic. Pupils are equal, round, and reactive to light. Extraocular eye muscles are intact and sclera are anicteric. Ears - bilaterally patent canals with noninjected tympanic membranes and no evidence of hemotympanum. Nose - moist nasal mucosa without discharge. Mouth - moist buccal mucosa. Oropharynx is nonerythematous and there is no tonsillar exudate or edema noted. Neck: Supple; no JVD, nuchal rigidity, cervical lymphadenopathy, or auscultated bruits. Heart: Regular rate and rhythm. There is a normal S1 and S2 with no murmurs, clicks, or gallops appreciated. Lungs: Clear to auscultation bilaterally with no wheezes, rales, or rhonchi. Abdomen: Soft, completely nontender, nondistended, with good bowel sounds. There are no palpable pulsatile masses or hepatosplenomegaly. There is no guarding, rigidity, or rebound noted. Extremities:Left extremity: Area of indurated erythema over the anterior, medial and lateral aspect of left leg. 2+ pitting edema. Pt has noticeable decreased ROM in the left leg (chronic) of unknown etiology. Distal pulses 2+ bilaterally. 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 1.5cm clean laceration at bottom of left foot, no signs of infection or inflammation. Marker outline applied to left leg erythema border at approx 11am on 04/27/17. RLE: non edematous, no skin changes. FROM. Neuro:The patient is awake and alert, oriented to day, time, and place. There are no cerebellar signs. Current SOFA Score SOFA Score Response (Comments) Value Platelets (x10) < 150 1 Bilirubin (mg/dL) < 1.2 0 [place] Coma Score 15 0 Level of Hypotension No Hypotension 0 Creatinine (mg/dL) 2.0 - 3.4 2 Total 3 Assessment & Plan Reason Critically Ill: Patient is an 66-year-old male who is transferred to the ICU for hypotension 2/2 Gram positive bacteremia s/p fluid resuscitation. Source is likely the left lower extremity. Pt is currently being weaned off pressors. Minimal clinical improvement today, will continue Abx. CV: Probably sepsis with signs of end organ dysfunction * Pt is currently on Levophed to maintain MAP >65. * Hold Home Hypertension Medications * EKG in emergency department and significant ectopy which calculated a QTC of greater than 600; recalculated and ICU as 469 * EKG today - no significant change was found, QTC < 500. * Ectopy greatly improved after fluid resuscitation and electrolyte initiation * Trans esophageal echo - grossly normal, consider MATY if patient does not improve to determine Abx dose. * Monitor on telemetry * Continue ASA 81mg daily (on as outpatient). CHF * BNP today was 61729. * Will hold IV fluids and give 25g 25% albumin. ID: * Infectious source is likely left lower leg cellulitis. Improving today. * Blood cultures grew Gram positive cocci. We await sensitivities. Repeat blood cultures on 04/29 to document clearance. * WBC today 25.18-->19.6 * continue Vancomycin and Clindamycin. * Vitamin C 1g daily. Neuro: * Patient complained of his normal neuropathy discomfort in the emergency department and was permitted to take his home dose of Lyrica * Continue Lyrica 200mg TID. Will renally dose per GFR. * Continue home Percocet 1 tab TID PRN pain. Resp: * Diagnosed outpatient with sleep apnea; uses nasal mask at night on CPAP * Cannot tolerate full face mask inpatient * OK to use home face mask. * Supplemental oxygen as required Fluids/Renal: JERRY, not prerenal. * Creatinine elevating to 2.4, from 1.7, baseline 1.4. * Rodriguez to gravity, remove once patient is normotensive and off pressors * Daily PRP * Hold Normosol 75mls/hr (+10L since admission due to elevated BNP), will give 25gm in 25% solution Albumin. * Will obtain urine sodium. * Per CT: 15 mm hyperdense mid pole posterior left renal mass: Presumed neoplastic until proven otherwise * Pt will need follow up with urology as outpatient. GI/Nutrition: * Diet: Heart Healthy * GI Prophylaxis: continue Ranitidine 150 mg PO BID Heme: * Hgb 12.0, platelets 117 * DVT Prophylaxis: Left Lower extremity dopper negative, continue Heparin 5, 000unit SQ q8h. * continue to monitor. Endocrine: * Accu-Checks per protocol, started insulin infusion for 2 blood sugars greater than 180 * A1C: 5.3 * Hypothyroidism: continue 25mcg Synthroid daily. Resident Physician Supervision Note: I was present with Dr. Thomas during the history and exam. I discussed the case with the resident and agree with the findings and plan as documented in the note. Any exceptions or clarifications are listed here: Patient with septic shock secondary to Streptococcus bacteremia, likely secondary to LLE cellulitis on Levophed. Slightly more confused today. JERRY GUS Continue low dose pressors as needed. JERRY - creatinine worsening, urine output is borderline. Likely contrast induced nephropathy. FeNa is 0.1% which also goes along with SARAH. Continue Abx, on Vanco and Clinda. F/u identification and sensitivity. Counseled for the importance of CPAP use (brought his own machine) Documented By: Paulino Ortiz MD Critical care time spent with the patient, his , discussing the patient during rounds, greater than 30 minutes Consults & Procedures Consultants: Heme/Onc - Dr. Finch (signed off) Procedures: NA Data Medications: Current Inpatient Medications Medications (Trade) Dose Ordered Sig/[place] Route Start Time Stop Time Status Last Admin Dose Admin Ioversol (Optiray 320) 100 ml UD PRN IV 04/26/17 15:30 04/30/17 15:29 Clindamycin Phosphate 900 mg/ Dextrose 106 ml @ 100 mls/hr Q8H IV 04/27/17 06:00 04/28/17 21:59 04/28/17 05:56 100 MLS/HR Vancomycin HCl (Consult) 1 ea UD PRN N/A 04/26/17 21:15 05/26/17 21:14 Aspirin (Ecotrin Tab) 81 mg QPM PO 04/27/17 21:00 05/27/17 20:59 04/27/17 21:07 81 MG Cholecalciferol (Vitamin D Tab) 1,000 inter.unit QAM PO 04/27/17 09:00 05/27/17 08:59 04/28/17 08:26 1,000 INTER.UNIT Colchicine (Colchicine Tab) 0.3 mg HS PO 04/27/17 21:00 05/27/17 20:59 04/27/17 21:07 0.3 MG Levothyroxine Sodium (Synthroid Tab) 25 mcg DAILYBB PO 04/27/17 06:00 05/27/17 05:59 04/28/17 05:56 25 MCG Montelukast Sodium (Singulair Tab) 10 mg HS PO 04/27/17 21:00 05/27/17 20:59 04/27/17 21:06 10 MG Multivitamins/ Minerals (Multivitamin W/ Minerals Tab) 1 tab DAILY PO 04/27/17 09:00 05/27/17 08:59 04/28/17 08:27 1 TAB Oxycodone/ Acetaminophen (Percocet 10-325MG Tab) 1 tab TID PRN PO 04/26/17 23:00 05/10/17 22:59 04/28/17 08:33 1 TAB Pregabalin (Lyrica Cap) 200 mg TID PO 04/27/17 09:00 05/27/17 08:59 04/28/17 08:32 200 MG Ranitidine HCl (zANTac TAB) 150 mg BID PO 04/27/17 09:00 05/27/17 08:59 04/28/17 08:27 150 MG Vancomycin HCl 1750 mg/Sodium Chloride 535 ml @ 200 mls/hr Q14H IV 04/27/17 02:00 05/10/17 01:59 Future Hold 04/28/17 05:56 200 MLS/HR Heparin Sodium (Porcine) (Heparin Sq 5000 Unit/0.5ml) 5,000 unit Q8 SQ 04/27/17 06:00 05/27/17 05:59 04/28/17 05:57 5,000 UNIT Norepinephrine Bitartrate 8 mg/ Dextrose 508 ml @ 0 mls/hr Q0M PRN IV 04/27/17 06:33 05/27/17 06:32 04/27/17 07:05 13 MLS/HR Parenteral Electrolyte Solution 1,000 ml @ 75 mls/hr [id number] IV 04/27/17 09:00 05/27/17 08:59 04/27/17 10:05 75 MLS/HR Ascorbic Acid (Vitamin C Tab) 1,000 mg QAM PO 04/27/17 09:00 05/27/17 08:59 04/28/17 08:26 1,000 MG Heparin Sodium (Porcine) (Heparin 10 Unit/ ml 5 ml Flush) 5 ml PRN PRN FLUSH 04/28/17 01:30 05/28/17 01:29 Vital Signs: Date Time Temp Pulse Resp B/P (MAP) Pulse Ox O2 Delivery O2 Flow Rate FiO2 04/28/17 08:00 95 Room Air 04/28/17 08:00 37.3 94 24 83/43 (56) 95 Room Air 04/28/17 06:02 47 22 112/46 (68) 94 04/28/17 05:46 54 18 107/41 (63) 96 04/28/17 05:31 78 20 100/39 (59) 85 04/28/17 05:16 60 16 133/52 (79) 89 04/28/17 05:01 71 17 99/49 (66) 83 04/28/17 04:46 51 21 104/38 (60) 91 04/28/17 04:31 61 18 130/47 (74) 89 04/28/17 04:16 74 16 114/43 (66) 96 04/28/17 04:01 36.8 48 18 119/41 (67) 94 04/28/17 04:00 96 Room Air 04/28/17 03:46 67 17 108/39 (62) 96 04/28/17 03:31 50 18 142/48 (79) 97 04/28/17 03:16 49 16 127/45 (72) 94 04/28/17 03:01 52 17 121/48 (72) 93 04/28/17 02:46 53 24 117/43 (67) 96 04/28/17 02:44 50 17 119/42 (67) 96 04/28/17 02:31 46 17 81/46 (58) 94 04/28/17 02:16 49 19 120/39 (66) 94 04/28/17 02:01 69 18 106/40 (62) 90 04/28/17 01:47 53 18 149/51 (83) 95 04/28/17 01:31 51 16 120/46 (70) 95 04/28/17 01:16 55 18 115/45 (68) 95 04/28/17 01:01 68 18 123/61 (81) 94 04/28/17 00:46 102 17 105/56 (72) 92 04/28/17 00:31 95 18 117/56 (76) 93 04/28/17 00:16 49 20 119/46 (70) 93 04/28/17 00:11 100 92 21 04/28/17 00:01 36.8 55 21 130/49 (76) 95 04/27/17 23:59 94 CPAP 04/27/17 23:46 96 26 108/44 (65) 95 04/27/17 23:32 70 24 116/84 (95) 93 04/27/17 23:16 89 23 98/56 (70) 91 04/27/17 23:01 110 26 108/57 (74) 90 04/27/17 22:46 100 26 111/51 (71) 88 04/27/17 22:31 102 20 102/56 (71) 93 04/27/17 22:16 110 22 119/59 (79) 92 04/27/17 22:01 105 22 123/66 (85) 94 04/27/17 21:46 104 20 104/54 (71) 90 04/27/17 21:31 100 24 131/62 (85) 93 04/27/17 21:23 108 90 21 04/27/17 21:16 19 154/59 (90) 92 04/27/17 21:01 17 149/51 (83) 89 04/27/17 21:01 17 149/51 (83) 89 04/27/17 20:46 19 116/62 (80) 93 04/27/17 20:46 19 116/62 (80) 93 04/27/17 20:31 17 117/55 (75) 93 04/27/17 20:31 17 117/55 (75) 93 04/27/17 20:19 93 CPAP 04/27/17 20:16 17 115/61 (79) 94 04/27/17 20:16 17 115/61 (79) 94 04/27/17 20:01 18 131/55 (80) 92 04/27/17 20:01 36.8 18 131/55 (80) 92 04/27/17 20:00 17 91 04/27/17 18:00 36.7 110 17 157/58 (91) 92 CPAP 04/27/17 16:00 91 Room Air 04/27/17 16:00 36.7 112 25 129/60 (83) 91 Room Air 04/27/17 14:00 36.7 103 21 126/49 (74) 90 Room Air 04/27/17 12:00 92 Nasal Cannula 04/27/17 12:00 36.7 99 27 112/57 (75) 94 Room Air 04/27/17 10:00 37.2 102 25 119/52 (74) 91 Room Air Laboratory Results: Last 24 Hours Test 04/27/17 11:10 04/27/17 11:48 04/27/17 17:18 04/28/17 01:11 Lactic Acid Level 1.7 mmol/L Bedside Glucose (other) 116 mg/dl 111 mg/dl 128 mg/dl Test 04/28/17 05:31 04/28/17 05:40 04/28/17 07:40 White Blood Count 19.61 K/uL Red Blood Count 4.26 M/uL Hemoglobin 12.0 g/dL Hematocrit 37.3 % Mean Corpuscular Volume 87.6 fL Mean Corpuscular Hemoglobin 28.2 pg Mean Corpuscular Hemoglobin Concent 32.2 g/dl Platelet Count 117 K/uL Mean Platelet Volume 12.4 fL Neutrophils (%) (Auto) 84.9 % Lymphocytes (%) (Auto) 6.0 % Monocytes (%) (Auto) 8.2 % Eosinophils (%) (Auto) 0.0 % Basophils (%) (Auto) 0.2 % Neutrophils # (Auto) 16.67 K/uL Lymphocytes # (Auto) 1.17 K/uL Monocytes # (Auto) 1.61 K/uL Eosinophils # (Auto) 0.00 K/uL Basophils # (Auto) 0.03 K/uL RDW Standard Deviation 51.9 fL RDW Coefficient of Variation 16.1 % Immature Granulocyte % (Auto) 0.7 % Immature Granulocyte # (Auto) 0.13 K/uL Platelet Estimate DECREASED Echinocytes 1+ Prothrombin Time 16.5 SECONDS Prothromb Time International Ratio 1.5 Activated Partial Thromboplast Time 41.5 SECONDS Partial Thromboplastin Ratio 1.6 Sodium Level 139 mmol/L Potassium Level 4.3 mmol/L Chloride Level 110 mmol/L Carbon Dioxide Level 20 mmol/L Anion Gap 9.0 mmol/L Blood Urea Nitrogen 43 mg/dl Creatinine 2.40 mg/dl Est Creatinine Clear Calc Drug Dose 40.6 ml/min Estimated GFR () 31.0 Estimated GFR (Non- 26.7 BUN/Creatinine Ratio 18.1 Random Glucose 99 mg/dl Calcium Level 8.1 mg/dl Phosphorus Level 4.6 mg/dl Magnesium Level 2.2 mg/dl Total Bilirubin 0.6 mg/dl Direct Bilirubin 0.3 mg/dl Aspartate Amino Transf (AST/SGOT) 25 U/L Alanine Aminotransferase (ALT/SGPT) 35 U/L Alkaline Phosphatase 63 U/L Pro-B-Type Natriuretic Peptide 94874 pg/ml Total Protein 5.4 gm/dl Albumin 2.1 gm/dl Vancomycin Level Trough 27.4 mcg/ml Bedside Glucose (other) 106 mg/dl Urine Random Creatinine 250.0 mg/dl Urine Random Sodium 16 mEq/L Resident Involvement: Resident Care Provided Care Provided: Adult Hospital Medicine
--- NOTE | 2017-04-28 12:55 | Family Medicine Progress Note ---
Progress Note Date of Service Apr 28, 2017. Subjective Pt evaluation today including: conversation w/ patient, physical exam, chart review, lab review Voiding: goode catheter in place Doing better . afebrile overnight . left lower leg edema appears improved. denies any pain. Constitutional: No fever, No chills Eyes: No worsening of vision ENT: No hearing loss Respiratory: No cough, No sputum Cardiovascular: No chest pain Abdomen: No pain, No nausea Musculoskeletal: + problem reported, No joint pain Male : No dysuria Neurologic: No memory loss Psychiatric: No depression symptoms Heme: No abnormal bleeding/bruising Medications Current Inpatient Medications Medications (Trade) Dose Ordered Sig/[place] Route Start Time Stop Time Status Last Admin Dose Admin Ioversol (Optiray 320) 100 ml UD PRN IV 04/26/17 15:30 04/30/17 15:29 Clindamycin Phosphate 900 mg/ Dextrose 106 ml @ 100 mls/hr Q8H IV 04/27/17 06:00 04/28/17 21:59 04/28/17 05:56 100 MLS/HR Vancomycin HCl (Consult) 1 ea UD PRN N/A 04/26/17 21:15 05/26/17 21:14 Aspirin (Ecotrin Tab) 81 mg QPM PO 04/27/17 21:00 05/27/17 20:59 04/27/17 21:07 81 MG Cholecalciferol (Vitamin D Tab) 1,000 inter.unit QAM PO 04/27/17 09:00 05/27/17 08:59 04/28/17 08:26 1,000 INTER.UNIT Levothyroxine Sodium (Synthroid Tab) 25 mcg DAILYBB PO 04/27/17 06:00 05/27/17 05:59 04/28/17 05:56 25 MCG Montelukast Sodium (Singulair Tab) 10 mg HS PO 04/27/17 21:00 05/27/17 20:59 04/27/17 21:06 10 MG Multivitamins/ Minerals (Multivitamin W/ Minerals Tab) 1 tab DAILY PO 04/27/17 09:00 05/27/17 08:59 04/28/17 08:27 1 TAB Oxycodone/ Acetaminophen (Percocet 10-325MG Tab) 1 tab TID PRN PO 04/26/17 23:00 05/10/17 22:59 04/28/17 08:33 1 TAB Vancomycin HCl 1750 mg/Sodium Chloride 535 ml @ 200 mls/hr Q14H IV 04/27/17 02:00 05/10/17 01:59 Future Hold 04/28/17 05:56 200 MLS/HR Heparin Sodium (Porcine) (Heparin Sq 5000 Unit/0.5ml) 5,000 unit Q8 SQ 04/27/17 06:00 05/27/17 05:59 04/28/17 05:57 5,000 UNIT Norepinephrine Bitartrate 8 mg/ Dextrose 508 ml @ 0 mls/hr Q0M PRN IV 04/27/17 06:33 05/27/17 06:32 04/27/17 07:05 13 MLS/HR Ascorbic Acid (Vitamin C Tab) 1,000 mg QAM PO 04/27/17 09:00 05/27/17 08:59 04/28/17 08:26 1,000 MG Heparin Sodium (Porcine) (Heparin 10 Unit/ ml 5 ml Flush) 5 ml PRN PRN FLUSH 04/28/17 01:30 05/28/17 01:29 Ranitidine HCl (zANTac TAB) 150 mg QAM PO 04/29/17 09:00 05/29/17 08:59 Pregabalin (Lyrica Cap) 100 mg TID PO 04/28/17 14:00 05/28/17 13:59 Albumin Human (Albumin 25%) 25 gm Q8H IV 04/28/17 10:00 04/29/17 02:01 04/28/17 09:44 25 GM Objective Vital Signs Date Time Temp Pulse Resp B/P (MAP) Pulse Ox O2 Delivery O2 Flow Rate FiO2 04/28/17 12:00 36.8 97 15 112/50 (70) 97 Room Air 04/28/17 12:00 95 Room Air 04/28/17 10:00 36.8 93 14 112/48 (69) 95 Room Air 04/28/17 08:00 95 Room Air 04/28/17 08:00 37.3 94 24 83/43 (56) 95 Room Air 04/28/17 06:02 47 22 112/46 (68) 94 04/28/17 05:46 54 18 107/41 (63) 96 04/28/17 05:31 78 20 100/39 (59) 85 04/28/17 05:16 60 16 133/52 (79) 89 04/28/17 05:01 71 17 99/49 (66) 83 04/28/17 04:46 51 21 104/38 (60) 91 04/28/17 04:31 61 18 130/47 (74) 89 04/28/17 04:16 74 16 114/43 (66) 96 04/28/17 04:01 36.8 48 18 119/41 (67) 94 04/28/17 04:00 96 Room Air 04/28/17 03:46 67 17 108/39 (62) 96 04/28/17 03:31 50 18 142/48 (79) 97 04/28/17 03:16 49 16 127/45 (72) 94 04/28/17 03:01 52 17 121/48 (72) 93 04/28/17 02:46 53 24 117/43 (67) 96 04/28/17 02:44 50 17 119/42 (67) 96 04/28/17 02:31 46 17 81/46 (58) 94 04/28/17 02:16 49 19 120/39 (66) 94 04/28/17 02:01 69 18 106/40 (62) 90 04/28/17 01:47 53 18 149/51 (83) 95 04/28/17 01:31 51 16 120/46 (70) 95 04/28/17 01:16 55 18 115/45 (68) 95 04/28/17 01:01 68 18 123/61 (81) 94 04/28/17 00:46 102 17 105/56 (72) 92 04/28/17 00:31 95 18 117/56 (76) 93 04/28/17 00:16 49 20 119/46 (70) 93 04/28/17 00:11 100 92 21 04/28/17 00:01 36.8 55 21 130/49 (76) 95 04/27/17 23:59 94 CPAP 04/27/17 23:46 96 26 108/44 (65) 95 04/27/17 23:32 70 24 116/84 (95) 93 04/27/17 23:16 89 23 98/56 (70) 91 04/27/17 23:01 110 26 108/57 (74) 90 04/27/17 22:46 100 26 111/51 (71) 88 04/27/17 22:31 102 20 102/56 (71) 93 04/27/17 22:16 110 22 119/59 (79) 92 04/27/17 22:01 105 22 123/66 (85) 94 04/27/17 21:46 104 20 104/54 (71) 90 04/27/17 21:31 100 24 131/62 (85) 93 04/27/17 21:23 108 90 21 04/27/17 21:16 19 154/59 (90) 92 04/27/17 21:01 17 149/51 (83) 89 04/27/17 21:01 17 149/51 (83) 89 04/27/17 20:46 19 116/62 (80) 93 04/27/17 20:46 19 116/62 (80) 93 04/27/17 20:31 17 117/55 (75) 93 04/27/17 20:31 17 117/55 (75) 93 04/27/17 20:19 93 CPAP 04/27/17 20:16 17 115/61 (79) 94 04/27/17 20:16 17 115/61 (79) 94 04/27/17 20:01 18 131/55 (80) 92 04/27/17 20:01 36.8 18 131/55 (80) 92 04/27/17 20:00 17 91 04/27/17 18:00 36.7 110 17 157/58 (91) 92 CPAP 04/27/17 16:00 91 Room Air 04/27/17 16:00 36.7 112 25 129/60 (83) 91 Room Air 04/27/17 14:00 36.7 103 21 126/49 (74) 90 Room Air Physical Exam General Appearance: WD/WN, no apparent distress Eyes: normal inspection ENT: normal ENT inspection, hearing grossly normal Neck: supple Respiratory/Chest: chest non-tender, lungs clear, normal breath sounds, no respiratory distress, no accessory muscle use Cardiovascular: regular rate, rhythm Abdomen: normal bowel sounds, non tender, soft Extremities: + pedal edema (left lower extemity-appears improved , mildly erythematous, warm to palpation) Neurologic/Psychiatric: alert, normal mood/affect, oriented x 3 Laboratory Results 04/28/17 05:31 Red Blood Count 4.26, Mean Corpuscular Volume 87.6, Mean Corpuscular Hemoglobin 28.2, Mean Corpuscular Hemoglobin Concent 32.2, Mean Platelet Volume 12.4, Neutrophils (%) (Auto) 84.9, Lymphocytes (%) (Auto) 6.0, Monocytes (%) (Auto) 8.2, Eosinophils (%) (Auto) 0.0, Basophils (%) (Auto) 0.2, Neutrophils # (Auto) 16.67, Lymphocytes # (Auto) 1.17, Monocytes # (Auto) 1.61, Eosinophils # (Auto) 0.00, Basophils # (Auto) 0.03 04/28/17 05:31 Test 04/28/17 05:31 04/28/17 07:40 04/28/17 12:26 White Blood Count 19.61 K/uL (4.8-10.8) Red Blood Count 4.26 M/uL (4.7-6.1) Hemoglobin 12.0 g/dL (14.0-18.0) Hematocrit 37.3 % (42-52) Mean Corpuscular Volume 87.6 fL (80-100) Mean Corpuscular Hemoglobin 28.2 pg (25-34) Mean Corpuscular Hemoglobin Concent 32.2 g/dl (32-36) Platelet Count 117 K/uL (130-400) Mean Platelet Volume 12.4 fL (7.4-10.4) Neutrophils (%) (Auto) 84.9 % Lymphocytes (%) (Auto) 6.0 % Monocytes (%) (Auto) 8.2 % Eosinophils (%) (Auto) 0.0 % Basophils (%) (Auto) 0.2 % Neutrophils # (Auto) 16.67 K/uL (1.4-6.5) Lymphocytes # (Auto) 1.17 K/uL (1.2-3.4) Monocytes # (Auto) 1.61 K/uL (0.11-0.59) Eosinophils # (Auto) 0.00 K/uL (0-0.5) Basophils # (Auto) 0.03 K/uL (0-0.2) RDW Standard Deviation 51.9 fL (36.4-46.3) RDW Coefficient of Variation 16.1 % (11.5-14.5) Immature Granulocyte % (Auto) 0.7 % Immature Granulocyte # (Auto) 0.13 K/uL (0.00-0.02) Platelet Estimate DECREASED Echinocytes 1+ Prothrombin Time 16.5 SECONDS (9.0-12.0) Prothromb Time International Ratio 1.5 (0.9-1.1) Activated Partial Thromboplast Time 41.5 SECONDS (21.0-31.0) Partial Thromboplastin Ratio 1.6 Anion Gap 9.0 mmol/L (3-11) Est Creatinine Clear Calc Drug Dose 40.6 ml/min Estimated GFR () 31.0 Estimated GFR (Non- 26.7 BUN/Creatinine Ratio 18.1 (10-20) Calcium Level 8.1 mg/dl (8.5-10.1) Phosphorus Level 4.6 mg/dl (2.5-4.9) Magnesium Level 2.2 mg/dl (1.8-2.4) Total Bilirubin 0.6 mg/dl (0.2-1) Direct Bilirubin 0.3 mg/dl (0-0.2) Aspartate Amino Transf (AST/SGOT) 25 U/L (15-37) Alanine Aminotransferase (ALT/SGPT) 35 U/L (12-78) Alkaline Phosphatase 63 U/L (45-117) Pro-B-Type Natriuretic Peptide 02655 pg/ml (0-900) Total Protein 5.4 gm/dl (6.4-8.2) Albumin 2.1 gm/dl (3.4-5.0) Vancomycin Level Trough 27.4 mcg/ml (SEE COMMENT) Urine Random Creatinine 250.0 mg/dl Urine Random Sodium 16 mEq/L Bedside Glucose (other) 104 mg/dl (70-99) Assessment and Plan 66 y/o M here with c/o fever , hypotension which started 1 day prior to arrival. doing better and his levophed was held yesterday but his BP seemed to drop overnight and Levophed was restarted this morning. His left lower extremity appears improved. erythema and warmth have decreased compared to yesterday Sepsis likely secondary to left lower extremity cellulitis Meets criteria with hypotension, tachycardia, fever, elevated lactate - BC positive for G positive cocci, UC neg so far, MRSA positive, Stool cultures negative - CT head revealed left mastoid effusion, Left posterior parietal scalp nodule which do not appear to be infected - Ct abd/pelvis: - Postsurgical changes of a right hemicolectomy. - No evidence of bowel obstruction. No evidence of free air - Mild adenopathy - Hepatic steatosis. Mild splenomegaly - Possible cholelithiasis - Left-sided nephrolithiasis - Echo: * Technically limited study. * Left ventricular systolic function is normal. * No regional wall motion abnormalities noted. * Ejection Fraction = 60-65%. * Grade I diastolic dysfunction, (abnormal relaxation pattern). - US doppler left lower extremity negative - Currently on Levophed for hypotension - Continue vancomycin, clindamycin Acute renal failure: - Cr at 2.4 from 1.7 yesterday - avoid nephrotoxins - Continue albumin infusions Renal mass on CT: - stable since 2014, followed by urology - Appreciate Hematology/oncology recs Right adrenal gland nodule: - likely incidentaloma GERD - Ranitidine 150mg PO qam ( renally dosed) Asthma - continue montelukast GUS - continue CPAP at night Peripheral Neuropathy - continue pregabalin( renally dosed) Hypothyroidism - continue levothyroxine 25 mcg DVT Prophylaxis - heparin 5000 units SQ Q8H Code - Full Disposition - Monitored in ICU Resident Physician Supervision Note: I interviewed and examined the patient. Discussed with Dr. Negron and agree with findings and plan as documented in the note. Any exceptions or clarifications are listed here: None Documented By: Humberto Ramirez no new issues no new complaints leg looks better vitals noted nad breathing unlabored. LLE erythema improving cellulitis w sepsis and strep bacteremia // severe sepsis related to septic shock/hypotension/ARF-continue abx and supportive care Resident Tracking Resident Involvement: Resident Care Provided Care Provided: Adult Hospital Medicine
[2017-04-28] MEDS ORDERED: ACETAMINOPHEN IV 650 MG / 65ML IV PRN (19:30)
[2017-04-28] MEDS ORDERED: ACETAMINOPHEN 325 MG TAB PO PRN (19:30)
[2017-04-28] MEDS: MONTELUKAST SOD 10 MG TAB PO SCH (20:33)
[2017-04-28] MEDS: ASPIRIN 81 MG ECTAB PO SCH (20:33)
[2017-04-29] VITALS (18 sets, daily range): BP systolic 108–157; BP diastolic 48–65; PULSE 43–97; TEMP 36.4–36.9; O2SAT 92–98
[2017-04-29] MEDS: ALBUMIN HUMAN 25% 12.5 GM/50 ML VIAL IV SCH (02:18)
[2017-04-29 05:43] LABS: HEMATOCRIT 36.3 % (42-52); MEAN CELL VOLUME 86.6 fL (80-100); MEAN CORPUSCULAR HEMOGLOBIN 27.4 pg (25-34); MEAN CORPUSCULAR HGB CONC 31.7 g/dl (32-36); PLATELET COUNT 100 K/uL (130-400); RED BLOOD COUNT 4.19 M/uL (4.7-6.1); WHITE BLOOD COUNT 13.08 K/uL (4.8-10.8)
[2017-04-29 05:51] LABS: INR 1.2 (0.9-1.1); PARTIAL THROMBOPLASTIN RATIO 1.4; PROTHROMBIN TIME (PATIENT) 12.5 SECONDS (9.0-12.0)
[2017-04-29 06:13] LABS: BUN/CREATININE RATIO 20.4 (10-20); CALCIUM 8.4 mg/dl (8.5-10.1); CREATININE 2.6 mg/dl (0.60-1.40); MAGNESIUM 2.5 mg/dl (1.8-2.4); PHOSPHORUS 4.9 mg/dl (2.5-4.9); POTASSIUM 3.6 mmol/L (3.5-5.1)
[2017-04-29] MEDS: LEVOTHYROXINE 25 MCG TAB PO SCH (06:27)
[2017-04-29] MEDS: HEPARIN SOD 5000 UNIT/0.5 ML CARP SQ SCH ×3 (06:27→21:23)
[2017-04-29 06:34] LABS: BASO % 0.2 %; BASO ABS # 0.02 K/uL (0-0.2); COMPLETE YES; DOHLE BODIES 3+; ECHINOCYTES 1+; EOS % 0.1 %; IG% 0.8 %; LYMPH % 6.6 %; LYMPH ABS # 0.86 K/uL (1.2-3.4); MONO % 10.9 %; NEUT % 81.4 %; TOXIC GRANULATION 2+
--- NOTE | 2017-04-29 08:27 | Critical Care Progress Note ---
Critical Care Progress Note Date of Service Apr 29, 2017. ICU Day ICU Day Number: [address] Ortiz Subjective Pt was seen and examined at bedside. No acute distress. No acute events overnight. Urine output was 750mL over 8 hours. (compared to 650mLs over the past 24 hours). Pt still has a triple lumen catheter. Pt has been off pressors from over 24 hours. According to nursing hand off the left leg was weeping overnight. Pt's only complaint was that he wants to get out of bed to the chair. Plan of care was described to the pt and all questions were answered. ROS: No chest pain, no SOB, no dyspnea on exertion, no palpitations, no fevers, no chills, no nausea, no vomiting, no diarrhea, no dysuria, no rash. Objective Gen: No acute distress. HEENT: Head - normocephalic and atraumatic. Pupils are equal, round, and reactive to light. Extraocular eye muscles are intact and sclera are anicteric. Ears - bilaterally patent canals with noninjected tympanic membranes and no evidence of hemotympanum. Nose - moist nasal mucosa without discharge. Mouth - moist buccal mucosa. Oropharynx is nonerythematous and there is no tonsillar exudate or edema noted. Neck: Supple; no JVD, nuchal rigidity, cervical lymphadenopathy, or auscultated bruits. Heart: Regular rate and rhythm. There is a normal S1 and S2 with no murmurs, clicks, or gallops appreciated. Lungs: Clear to auscultation bilaterally with no wheezes, rales, or rhonchi. Abdomen: Soft, completely nontender, nondistended, with good bowel sounds. There are no palpable pulsatile masses or hepatosplenomegaly. There is no guarding, rigidity, or rebound noted. Extremities:Left extremity: Area of indurated erythema over the anterior, medial and lateral aspect of left leg. 2+ pitting edema. Pt has noticeable decreased ROM in the left leg (chronic) of unknown etiology. Distal pulses 2+ bilaterally. There is director of mobile marketing the Left lower extremity. 1.5cm clean laceration at bottom of left foot, no signs of infection or inflammation. Marker outline applied to left leg erythema border at approx 11am on 04/27/17 and a smaller area was outline on 04/28/17. The induration now seems to be growing past the marker from 04/27, this represents a worsening of a clinical presentation. Leg does not bother pt, pt states the leg is pain free although he does have a history of neuropathy. RLE: non edematous, no skin changes. FROM. Neuro:The patient is awake and alert, oriented to day, time, and place. There are no cerebellar signs. Current SOFA Score SOFA Score Response (Comments) Value Platelets (x10) < 150 1 Bilirubin (mg/dL) < 1.2 0 Alexander Coma Score 15 0 Level of Hypotension No Hypotension 0 Creatinine (mg/dL) 2.0 - 3.4 2 Total 3 Assessment & Plan Reason Critically Ill: Patient is an 66-year-old male who is transferred to the ICU for hypotension 2/2 Gram positive bacteremia s/p fluid resuscitation. Source is likely the left lower extremity. Pt is off pressors on 04/29. Wound looks worse and pt's creatinine is increasing, however the vital signs and WBC are stable to improved . Blood culture sensitivities returned a Group B Beta Hemolytic strep sensitive to Rocephin. Appropriate Abx stewardship will be implemented. CV: Probable sepsis with signs of end organ dysfunction * Clinically asymptomatic, will get out of bed today. * s/p Levophed. * continue to hold home Hypertension Medications * EKG in emergency department and significant ectopy which calculated a QTC of greater than 600; recalculated and ICU as 469 * EKG today - no significant change was found, QTC < 500. * Ectopy greatly improved after fluid resuscitation and electrolyte initiation * Trans esophageal echo - grossly normal, consider MATY if patient does not improve to determine Abx dose. * Monitor on telemetry * Continue ASA 81mg daily (on as outpatient). CHF * BNP today was 79005. * No IVF at present. * s/p 3 bottles of 25g 25% albumin. ID: * Infectious source is likely left lower leg cellulitis. Wounds appears to be worsening. * Blood cultures grew Gram positive cocci. (Group B Beta Strep sensitive to Rocephin) Repeat blood cultures pending. * WBC today 25.18-->19.6-->13.1 * s/p 2 days of Vanc and Clinda. * Starting Rocephin 2g daily. * Vitamin C 1.5g daily. Neuro: * Patient complained of his normal neuropathy discomfort in the emergency department and was permitted to take his home dose of Lyrica * Continue Lyrica 200mg TID. Will renally dose per GFR. * Continue home Percocet 1 tab TID PRN pain. Resp: * Diagnosed outpatient with sleep apnea; uses nasal mask at night on CPAP * Cannot tolerate full face mask inpatient * OK to use home face mask. * Supplemental oxygen as required Fluids/Renal: JERRY, not prerenal. * Creatinine worsening to 2.6<--2.4<--1.7, baseline 1.4. * Excellent urine output overnight. * Rodriguez to gravity, remove once patient is normotensive and off pressors * Daily PRP * Hold IVF s/p 3 doses of 25gm in 25% solution Albumin. * Urine Sodium - FeNa is 0.1% which is suggestive on contrast induced nephropathy. * Per CT: 15 mm hyperdense mid pole posterior left renal mass: Presumed neoplastic until proven otherwise * Pt will need follow up with urology as outpatient. GI/Nutrition: * Diet: Heart Healthy * GI Prophylaxis: continue Ranitidine 150 mg PO BID Heme: * Hgb 13.1, platelets 100 * DVT Prophylaxis: Left Lower extremity doppler negative, continue Heparin 5, 000unit SQ q8h. * continue to monitor. Endocrine: * Accu-Checks per protocol, started insulin infusion for 2 blood sugars greater than 180 * A1C: 5.3 * Hypothyroidism: continue 25mcg Synthroid daily. I was present with Dr. Thomas during the history and exam. I discussed the case with the resident and agree with the findings and plan as documented in the note. Any exceptions or clarifications are listed here: Patient with septic shock secondary to Streptococcus bacteremia, likely secondary to LLE cellulitis, now off Levophed JERRY GUS Has been off pressors since yesterday The left lower extremity cellulitis looks worse today compared to yesterday More awake and alert today OOB in chair Urine output improving JERRY - creatinine worsening slowly, but urine output is finally improving Likely contrast induced nephropathy. FeNa is 0.1% which also goes along with SARAH. Sepsis - Off pressors. Blood Cx growing group B streptococcus. Abx changed from Vancomycin to Rocephin initially, then to Zosyn. Covering the strep but also better gram-negative coverage Blood cultures repeated last night in the setting of fever. Continue on CPAP Documented By: Paulino Ortiz MD Critical care time spent with the patient, his , discussing the patient during rounds, greater than 25 minutes Consults & Procedures Consultants: Heme/Onc - Dr. Finch (signed off) Procedures: NA Data Medications: Current Inpatient Medications Medications (Trade) Dose Ordered Sig/[place]onte Route Start Time Stop Time Status Last Admin Dose Admin Ioversol (Optiray 320) 100 ml UD PRN IV 04/26/17 15:30 04/30/17 15:29 Vancomycin HCl (Consult) 1 ea UD PRN N/A 04/26/17 21:15 05/26/17 21:14 Aspirin (Ecotrin Tab) 81 mg QPM PO 04/27/17 21:00 05/27/17 20:59 04/28/17 20:33 81 MG Cholecalciferol (Vitamin D Tab) 1,000 inter.unit QAM PO 04/27/17 09:00 05/27/17 08:59 04/28/17 08:26 1,000 INTER.UNIT Levothyroxine Sodium (Synthroid Tab) 25 mcg DAILYBB PO 04/27/17 06:00 05/27/17 05:59 04/29/17 06:27 25 MCG Montelukast Sodium (Singulair Tab) 10 mg HS PO 04/27/17 21:00 05/27/17 20:59 04/28/17 20:33 10 MG Multivitamins/ Minerals (Multivitamin W/ Minerals Tab) 1 tab DAILY PO 04/27/17 09:00 05/27/17 08:59 04/28/17 08:27 1 TAB Oxycodone/ Acetaminophen (Percocet 10-325MG Tab) 1 tab TID PRN PO 04/26/17 23:00 05/10/17 22:59 04/28/17 08:33 1 TAB Vancomycin HCl 1750 mg/Sodium Chloride 535 ml @ 200 mls/hr Q14H IV 04/27/17 02:00 05/10/17 01:59 Future Hold 04/28/17 05:56 200 MLS/HR Heparin Sodium (Porcine) (Heparin Sq 5000 Unit/0.5ml) 5,000 unit Q8 SQ 04/27/17 06:00 05/27/17 05:59 04/29/17 06:27 5,000 UNIT Norepinephrine Bitartrate 8 mg/ Dextrose 508 ml @ 0 mls/hr Q0M PRN IV 04/27/17 06:33 05/27/17 06:32 04/27/17 07:05 13 MLS/HR Ascorbic Acid (Vitamin C Tab) 1,000 mg QAM PO 04/27/17 09:00 05/27/17 08:59 04/28/17 08:26 1,000 MG Heparin Sodium (Porcine) (Heparin 10 Unit/ ml 5 ml Flush) 5 ml PRN PRN FLUSH 04/28/17 01:30 05/28/17 01:29 Ranitidine HCl (zANTac TAB) 150 mg QAM PO 04/29/17 09:00 05/29/17 08:59 Pregabalin (Lyrica Cap) 100 mg TID PO 04/28/17 14:00 05/28/17 13:59 Acetaminophen (Tylenol Tab) 650 mg Q4H PRN PO 04/28/17 19:30 05/28/17 19:29 04/28/17 19:30 650 MG Acetaminophen 650 mg/Empty Bag 65 ml @ 260 mls/hr Q4H PRN IV 04/28/17 19:30 05/28/17 19:29 Vital Signs: Date Time Temp Pulse Resp B/P (MAP) Pulse Ox O2 Delivery O2 Flow Rate FiO2 04/29/17 06:00 90 22 113/50 (71) 98 Nasal Cannula 2.0 04/29/17 04:00 95 CPAP 2.0 04/29/17 04:00 36.6 91 22 139/54 (82) 95 CPAP 2.0 04/29/17 03:00 36.7 95 21 131/58 (82) 97 CPAP 2.0 04/29/17 02:00 36.7 97 18 140/57 (84) 97 CPAP 2.0 04/29/17 01:00 95 18 157/60 (92) 97 CPAP 2.0 04/29/17 00:00 92 Room Air 04/29/17 00:00 36.9 95 16 122/50 (74) 92 Room Air 04/28/17 23:00 94 19 121/63 (82) 92 Room Air 04/28/17 22:30 97 27 100 04/28/17 22:01 46 16 112/58 (72) 90 04/28/17 22:00 87 17 97 04/28/17 21:31 48 21 118/50 (80) 97 04/28/17 21:30 48 17 98 04/28/17 21:30 37.2 04/28/17 21:01 51 24 141/56 (93) 98 04/28/17 21:00 50 24 97 04/28/17 20:40 38.0 100 22 159/59 (92) 97 Nasal Cannula 2.0 04/28/17 20:31 53 22 159/59 (103) 97 04/28/17 20:30 53 18 97 04/28/17 20:01 51 17 134/56 (93) 99 04/28/17 20:00 51 26 97 04/28/17 19:31 73 16 150/70 (108) 94 04/28/17 19:30 74 17 94 04/28/17 19:01 80 16 139/61 (64) 93 04/28/17 19:01 80 16 139/61 (64) 93 04/28/17 19:01 38.4 103 22 139/61 (87) 93 Room Air 04/28/17 19:01 Room Air 04/28/17 19:00 78 16 94 04/28/17 19:00 78 16 94 04/28/17 18:31 84 18 137/62 (78) 92 04/28/17 18:30 87 18 94 04/28/17 18:01 53 21 145/60 (99) 91 04/28/17 18:00 52 18 93 04/28/17 17:43 70 19 108/54 (55) 92 04/28/17 17:32 58 22 125/81 (97) 91 04/28/17 17:30 53 19 84 04/28/17 17:14 37.7 101 22 145/48 (80) 95 Room Air 04/28/17 17:01 56 23 145/48 (76) 92 04/28/17 17:00 67 16 04/28/17 16:31 59 16 121/48 (60) 97 04/28/17 16:30 53 16 96 04/28/17 16:01 56 26 99/55 (82) 93 04/28/17 16:00 86 16 94 04/28/17 15:32 84 17 112/59 (87) 93 04/28/17 15:30 84 28 93 04/28/17 15:27 Room Air 04/28/17 15:27 37.7 101 22 95/45 (62) 94 Room Air 04/28/17 15:01 97 16 95/45 (56) 04/28/17 15:00 96 19 04/28/17 14:00 36.8 91 22 105/44 (64) 95 Room Air 04/28/17 12:00 36.8 97 15 112/50 (70) 97 Room Air 04/28/17 12:00 95 Room Air 04/28/17 10:00 36.8 93 14 112/48 (69) 95 Room Air 04/28/17 08:00 95 Room Air 04/28/17 08:00 37.3 94 24 83/43 (56) 95 Room Air Laboratory Results: Last 24 Hours Test 04/28/17 07:40 04/28/17 12:26 04/28/17 15:59 04/29/17 05:12 Urine Random Creatinine 250.0 mg/dl Urine Random Sodium 16 mEq/L Bedside Glucose (other) 104 mg/dl 115 mg/dl White Blood Count 13.08 K/uL Red Blood Count 4.19 M/uL Hemoglobin 11.5 g/dL Hematocrit 36.3 % Mean Corpuscular Volume 86.6 fL Mean Corpuscular Hemoglobin 27.4 pg Mean Corpuscular Hemoglobin Concent 31.7 g/dl Platelet Count 100 K/uL Mean Platelet Volume 12.0 fL Neutrophils (%) (Auto) 81.4 % Lymphocytes (%) (Auto) 6.6 % Monocytes (%) (Auto) 10.9 % Eosinophils (%) (Auto) 0.1 % Basophils (%) (Auto) 0.2 % Neutrophils # (Auto) 10.67 K/uL Lymphocytes # (Auto) 0.86 K/uL Monocytes # (Auto) 1.42 K/uL Eosinophils # (Auto) 0.01 K/uL Basophils # (Auto) 0.02 K/uL RDW Standard Deviation 51.5 fL RDW Coefficient of Variation 16.2 % Immature Granulocyte % (Auto) 0.8 % Immature Granulocyte # (Auto) 0.10 K/uL Toxic Granulation 2+ Dohle Bodies 3+ Echinocytes 1+ Prothrombin Time 12.5 SECONDS Prothromb Time International Ratio 1.2 Activated Partial Thromboplast Time 35.9 SECONDS Partial Thromboplastin Ratio 1.4 Sodium Level 139 mmol/L Potassium Level 3.6 mmol/L Chloride Level 109 mmol/L Carbon Dioxide Level 20 mmol/L Anion Gap 10.0 mmol/L Blood Urea Nitrogen 53 mg/dl Creatinine 2.60 mg/dl Est Creatinine Clear Calc Drug Dose 37.3 ml/min Estimated GFR () 28.1 Estimated GFR (Non- 24.3 BUN/Creatinine Ratio 20.4 Random Glucose 120 mg/dl Calcium Level 8.4 mg/dl Phosphorus Level 4.9 mg/dl Magnesium Level 2.5 mg/dl Total Bilirubin 0.6 mg/dl Direct Bilirubin 0.3 mg/dl Aspartate Amino Transf (AST/SGOT) 16 U/L Alanine Aminotransferase (ALT/SGPT) 29 U/L Alkaline Phosphatase 71 U/L Total Protein 6.1 gm/dl Albumin 2.7 gm/dl Random Vancomycin Level 26.0 mcg/ml Resident Involvement: Resident Care Provided Care Provided: Adult Hospital Medicine
[2017-04-29] MEDS: PREGABALIN 100 MG CAP PO SCH ×3 (08:47→20:29)
[2017-04-29] MEDS: RANITIDINE HCL 150 MG TAB PO SCH (08:47)
[2017-04-29] MEDS: CEROVITE ADV FORMULA TAB PO SCH (08:47)
[2017-04-29] MEDS: CHOLECALCIFEROL 1000 INTER.UNIT TAB PO SCH (08:47)
[2017-04-29] MEDS: ASCORBIC ACID 500 MG TAB PO SCH (08:48)
[2017-04-29] MEDS ORDERED: ACETAMINOPHEN 325 MG TAB PO PRN ×2 (09:00→21:00)
[2017-04-29] MEDS: OXYCODONE/ACETAMINOPHEN 10/325MG TAB PO PRN ×2 (11:33→20:43)
[2017-04-29] MEDS ORDERED: CEFTRIAXONE SOD INJ 1 GM in DEXTROSE 5% ADD-VANTAGE 50ML 50 ML IV SCH (13:00)
[2017-04-29] MEDS ORDERED: CEFTRIAXONE SOD INJ 2000 MG in DEXTROSE 5% 50ML IV SCH (13:00)
--- NOTE | 2017-04-29 15:05 | Family Medicine Progress Note ---
Progress Note Date of Service Apr 29, 2017. Subjective Pt evaluation today including: conversation w/ patient, physical exam Pain: pain left lower extremity PO Intake: GOOD Voiding: goode catheter in place Complains of worsening left lower extremity pain. The swelling appears to have progressed and he also has a serous drainage from it. Denies any new fevers or chills, chest pain, shortness of breath. Constitutional: No fever, No chills Eyes: No worsening of vision ENT: No hearing loss Respiratory: No cough, No sputum Cardiovascular: No chest pain Abdomen: No pain, No nausea Male : No dysuria, No urinary frequency Neurologic: No memory loss Psychiatric: No depression symptoms Heme: No abnormal bleeding/bruising Medications Current Inpatient Medications Medications (Trade) Dose Ordered Sig/[place]onte Route Start Time Stop Time Status Last Admin Dose Admin Ioversol (Optiray 320) 100 ml UD PRN IV 04/26/17 15:30 04/30/17 15:29 Aspirin (Ecotrin Tab) 81 mg QPM PO 04/27/17 21:00 05/27/17 20:59 04/28/17 20:33 81 MG Cholecalciferol (Vitamin D Tab) 1,000 inter.unit QAM PO 04/27/17 09:00 05/27/17 08:59 04/29/17 08:47 1,000 INTER.UNIT Levothyroxine Sodium (Synthroid Tab) 25 mcg DAILYBB PO 04/27/17 06:00 05/27/17 05:59 04/29/17 06:27 25 MCG Montelukast Sodium (Singulair Tab) 10 mg HS PO 04/27/17 21:00 05/27/17 20:59 04/28/17 20:33 10 MG Multivitamins/ Minerals (Multivitamin W/ Minerals Tab) 1 tab DAILY PO 04/27/17 09:00 05/27/17 08:59 04/29/17 08:47 1 TAB Oxycodone/ Acetaminophen (Percocet 10-325MG Tab) 1 tab TID PRN PO 04/26/17 23:00 05/10/17 22:59 04/29/17 11:33 1 TAB Heparin Sodium (Porcine) (Heparin Sq 5000 Unit/0.5ml) 5,000 unit Q8 SQ 04/27/17 06:00 05/27/17 05:59 04/29/17 13:06 5,000 UNIT Norepinephrine Bitartrate 8 mg/ Dextrose 508 ml @ 0 mls/hr Q0M PRN IV 04/27/17 06:33 05/27/17 06:32 04/27/17 07:05 13 MLS/HR Ascorbic Acid (Vitamin C Tab) 1,000 mg QAM PO 04/27/17 09:00 05/27/17 08:59 04/29/17 08:48 1,000 MG Heparin Sodium (Porcine) (Heparin 10 Unit/ ml 5 ml Flush) 5 ml PRN PRN FLUSH 04/28/17 01:30 05/28/17 01:29 04/29/17 10:38 5 ML Ranitidine HCl (zANTac TAB) 150 mg QAM PO 04/29/17 09:00 05/29/17 08:59 04/29/17 08:47 150 MG Pregabalin (Lyrica Cap) 100 mg TID PO 04/28/17 14:00 05/28/17 13:59 04/29/17 13:06 100 MG Acetaminophen (Tylenol Tab) 650 mg Q4H PRN PO 04/29/17 09:00 05/29/17 08:59 Ceftriaxone Sodium 2000 mg/ Dextrose 70 ml @ 140 mls/hr DAILY@1300 IV 04/29/17 13:00 05/13/17 12:59 04/29/17 13:24 140 MLS/HR Objective Vital Signs Date Time Temp Pulse Resp B/P (MAP) Pulse Ox O2 Delivery O2 Flow Rate FiO2 04/29/17 14:01 89 16 130/56 (80) 94 Room Air 04/29/17 12:01 36.4 78 18 139/54 (82) 97 Room Air 04/29/17 12:00 Room Air 04/29/17 10:01 52 26 123/51 (75) 98 Nasal Cannula 2.0 04/29/17 08:01 36.8 88 20 113/48 (69) 98 Nasal Cannula 2.0 04/29/17 08:00 Nasal Cannula 2.0 04/29/17 07:31 76 22 151/61 (91) 97 Nasal Cannula 2.0 04/29/17 07:01 80 24 108/60 (76) 98 Nasal Cannula 2.0 04/29/17 06:00 90 22 113/50 (71) 98 Nasal Cannula 2.0 04/29/17 04:00 95 CPAP 2.0 04/29/17 04:00 36.6 91 22 139/54 (82) 95 CPAP 2.0 04/29/17 03:00 36.7 95 21 131/58 (82) 97 CPAP 2.0 04/29/17 02:00 36.7 97 18 140/57 (84) 97 CPAP 2.0 04/29/17 01:00 95 18 157/60 (92) 97 CPAP 2.0 04/29/17 00:00 92 Room Air 04/29/17 00:00 36.9 95 16 122/50 (74) 92 Room Air 04/28/17 23:00 94 19 121/63 (82) 92 Room Air 04/28/17 22:30 97 27 100 04/28/17 22:01 46 16 112/58 (72) 90 04/28/17 22:00 87 17 97 04/28/17 21:31 48 21 118/50 (80) 97 04/28/17 21:30 48 17 98 04/28/17 21:30 37.2 04/28/17 21:01 51 24 141/56 (93) 98 04/28/17 21:00 50 24 97 04/28/17 20:40 38.0 100 22 159/59 (92) 97 Nasal Cannula 2.0 04/28/17 20:31 53 22 159/59 (103) 97 04/28/17 20:30 53 18 97 04/28/17 20:01 51 17 134/56 (93) 99 04/28/17 20:00 51 26 97 04/28/17 19:31 73 16 150/70 (108) 94 04/28/17 19:30 74 17 94 04/28/17 19:01 80 16 139/61 (64) 93 04/28/17 19:01 80 16 139/61 (64) 93 04/28/17 19:01 38.4 103 22 139/61 (87) 93 Room Air 04/28/17 19:01 Room Air 04/28/17 19:00 78 16 94 04/28/17 19:00 78 16 94 04/28/17 18:31 84 18 137/62 (78) 92 04/28/17 18:30 87 18 94 04/28/17 18:01 53 21 145/60 (99) 91 04/28/17 18:00 52 18 93 04/28/17 17:43 70 19 108/54 (55) 92 04/28/17 17:32 58 22 125/81 (97) 91 04/28/17 17:30 53 19 84 04/28/17 17:14 37.7 101 22 145/48 (80) 95 Room Air 04/28/17 17:01 56 23 145/48 (76) 92 04/28/17 17:00 67 16 04/28/17 16:31 59 16 121/48 (60) 97 04/28/17 16:30 53 16 96 04/28/17 16:01 56 26 99/55 (82) 93 04/28/17 16:00 86 16 94 04/28/17 15:32 84 17 112/59 (87) 93 04/28/17 15:30 84 28 93 04/28/17 15:27 Room Air 04/28/17 15:27 37.7 101 22 95/45 (62) 94 Room Air 04/28/17 15:01 97 16 95/45 (56) 04/28/17 15:00 96 19 Physical Exam General Appearance: no apparent distress Eyes: normal inspection ENT: hearing grossly normal Neck: supple Respiratory/Chest: chest non-tender Cardiovascular: regular rate, rhythm Extremities: + pedal edema, + swelling (left lower extremity swelling appears to have increased, erythema and warmth increased. Serous drainage. Pulses palpable.) Neurologic/Psychiatric: alert, normal mood/affect, oriented x 3, + pertinent finding (chronic left lower extremity droop and loss of sensation) Laboratory Results 04/29/17 05:12 Red Blood Count 4.19, Mean Corpuscular Volume 86.6, Mean Corpuscular Hemoglobin 27.4, Mean Corpuscular Hemoglobin Concent 31.7, Mean Platelet Volume 12.0, Neutrophils (%) (Auto) 81.4, Lymphocytes (%) (Auto) 6.6, Monocytes (%) (Auto) 10.9, Eosinophils (%) (Auto) 0.1, Basophils (%) (Auto) 0.2, Neutrophils # (Auto ) 10.67, Lymphocytes # (Auto) 0.86, Monocytes # (Auto) 1.42, Eosinophils # (Auto ) 0.01, Basophils # (Auto) 0.02 04/29/17 05:12 Test 04/29/17 05:12 White Blood Count 13.08 K/uL (4.8-10.8) Red Blood Count 4.19 M/uL (4.7-6.1) Hemoglobin 11.5 g/dL (14.0-18.0) Hematocrit 36.3 % (42-52) Mean Corpuscular Volume 86.6 fL (80-100) Mean Corpuscular Hemoglobin 27.4 pg (25-34) Mean Corpuscular Hemoglobin Concent 31.7 g/dl (32-36) Platelet Count 100 K/uL (130-400) Mean Platelet Volume 12.0 fL (7.4-10.4) Neutrophils (%) (Auto) 81.4 % Lymphocytes (%) (Auto) 6.6 % Monocytes (%) (Auto) 10.9 % Eosinophils (%) (Auto) 0.1 % Basophils (%) (Auto) 0.2 % Neutrophils # (Auto) 10.67 K/uL (1.4-6.5) Lymphocytes # (Auto) 0.86 K/uL (1.2-3.4) Monocytes # (Auto) 1.42 K/uL (0.11-0.59) Eosinophils # (Auto) 0.01 K/uL (0-0.5) Basophils # (Auto) 0.02 K/uL (0-0.2) RDW Standard Deviation 51.5 fL (36.4-46.3) RDW Coefficient of Variation 16.2 % (11.5-14.5) Immature Granulocyte % (Auto) 0.8 % Immature Granulocyte # (Auto) 0.10 K/uL (0.00-0.02) Toxic Granulation 2+ Dohle Bodies 3+ Echinocytes 1+ Prothrombin Time 12.5 SECONDS (9.0-12.0) Prothromb Time International Ratio 1.2 (0.9-1.1) Activated Partial Thromboplast Time 35.9 SECONDS (21.0-31.0) Partial Thromboplastin Ratio 1.4 Anion Gap 10.0 mmol/L (3-11) Est Creatinine Clear Calc Drug Dose 37.3 ml/min Estimated GFR () 28.1 Estimated GFR (Non- 24.3 BUN/Creatinine Ratio 20.4 (10-20) Calcium Level 8.4 mg/dl (8.5-10.1) Phosphorus Level 4.9 mg/dl (2.5-4.9) Magnesium Level 2.5 mg/dl (1.8-2.4) Total Bilirubin 0.6 mg/dl (0.2-1) Direct Bilirubin 0.3 mg/dl (0-0.2) Aspartate Amino Transf (AST/SGOT) 16 U/L (15-37) Alanine Aminotransferase (ALT/SGPT) 29 U/L (12-78) Alkaline Phosphatase 71 U/L (45-117) Total Protein 6.1 gm/dl (6.4-8.2) Albumin 2.7 gm/dl (3.4-5.0) Random Vancomycin Level 26.0 mcg/ml Assessment and Plan 66 y/o M here with c/o fever , hypotension which started 1 day prior to arrival. Was admitted to ICU and treated for sepsis secondary to cellulitis. The left lower extremities swelling appears to have worsened with increased erythema, warmth and serous drainage. He also complains of left lower extremity pain. Sepsis likely secondary to left lower extremity cellulitis Meets criteria with hypotension, tachycardia, fever, elevated lactate - BC positive for group B streptococci ,UC neg so far, MRSA positive, Stool cultures negative - CT head revealed left mastoid effusion, Left posterior parietal scalp nodule which do not appear to be infected - Ct abd/pelvis: - Postsurgical changes of a right hemicolectomy. - No evidence of bowel obstruction. No evidence of free air - Mild adenopathy - Hepatic steatosis. Mild splenomegaly - Possible cholelithiasis - Left-sided nephrolithiasis - Echo: * Technically limited study. * Left ventricular systolic function is normal. * No regional wall motion abnormalities noted. * Ejection Fraction = 60-65%. * Grade I diastolic dysfunction, (abnormal relaxation pattern). - US doppler left lower extremity negative, ultrasound Dopplers ordered again due to worsening of the lower extremity swelling -Switched to Zosyn -Wound care consult -Pain control with Percocet and morphine as needed History of several bacteremias/sepsis including meningitis, pneumonia, cellulitis: - Suspect any underlying complement/ immune globulin deficiency - Recommend outpatient workup Acute renal failure: - Cr at 2.6 from 1.7 on admission - avoid nephrotoxins Renal mass on CT: - stable since 2014, followed by urology - Appreciate Hematology/oncology recs Right adrenal gland nodule: - likely incidentaloma GERD - Ranitidine 150mg PO qam ( renally dosed) Asthma - continue montelukast GUS - continue CPAP at night Peripheral Neuropathy - continue pregabalin( renally dosed) Hypothyroidism - continue levothyroxine 25 mcg DVT Prophylaxis - heparin 5000 units SQ Q8H Code - Full Disposition - Monitored in ICU generally feeling better, but leg redness worse. leg pain worse. making urine more now. vitals noted nad breathing unlabored no pallor or icterus LLE erythema extended beyond even day 1 outline, hot and more tender, shallow superficial but weeping ulcerations, no areas of crepitis or fluctuance LLE cellulitis / sepsis/strep bacteremia/ARF - overall improving but leg looks worse - --? leg infection polymicrobial and only strep showing on culture. zosyn to cover for this possibility. doppler to r/o non-infectious cause of erythema. ongoing supportive care. wound consult. likely will need ID input for duration and treatment regimen for bacteremia Resident Tracking Resident Involvement: Resident Care Provided Care Provided: Adult Hospital Medicine
[2017-04-29] MEDS ORDERED: PIPERACILL/TAZOBAC CONSULT ACTIVE PRN (16:15)
[2017-04-29] MEDS ORDERED: PIPERACILL/TAZOBAC IV 4.5 GM in DEXTROSE 5% 100ML IV ONE (16:30)
--- NOTE | 2017-04-29 16:57 | DIAGNOSTIC IMAGING REPORT ---
VENOUS DOPPLER LWR EXT BILA CLINICAL HISTORY: 66 years-old Male presenting with wosrening edema and erythema r/o DVT. TECHNIQUE: Real-time grayscale and color and spectral Doppler ultrasound imaging of the veins of the bilateral lower extremities was performed. Compression and augmentation were also utilized. COMPARISON: Left lower extremity ultrasound from 04/27/2017. FINDINGS: Right: Common femoral vein: Patent. Femoral vein: Patent. Greater saphenous vein: Patent. Popliteal vein: Patent. Calf veins: Patent. Left: Common femoral vein: Patent. Femoral vein: Patent. Greater saphenous vein: Patent. Popliteal vein: Patent. Calf veins: Patent. Other: Mild subcutaneous edema in the lower legs. IMPRESSION: No evidence of deep venous thrombosis. Electronically signed by: Carlo Jo M.D. 04/29/2017 4:56 PM Dictated Date/Time: 04/29/2017 4:55 PM
[2017-04-29] MEDS ORDERED: PIPERACILL/TAZOBAC IV 3.375 GM in DEXTROSE 5% 100ML 100 ML IV SCH (18:00)
[2017-04-29] MEDS: ASPIRIN 81 MG ECTAB PO SCH (20:29)
[2017-04-29] MEDS: MONTELUKAST SOD 10 MG TAB PO SCH (20:29)
[2017-04-29] MEDS: PIPERACILL/TAZOBAC IV 4.5 GM in DEXTROSE 5% 100ML IV SCH (21:21)
[2017-04-30] VITALS (30 sets, daily range): BP systolic 119–173; BP diastolic 50–83; PULSE 42–89; TEMP 36.6–37; O2SAT 89–97
[2017-04-30] MEDS ORDERED: ONDANSETRON INJ 2 MG/ML 2 ML VIAL ONE ×2 (03:08→07:27)
[2017-04-30 06:19] LABS: HEMATOCRIT 39.7 % (42-52); MEAN CELL VOLUME 83.8 fL (80-100); MEAN CORPUSCULAR HEMOGLOBIN 27.8 pg (25-34); MEAN CORPUSCULAR HGB CONC 33.2 g/dl (32-36); MEAN PLATELET VOLUME 11.3 fL (7.4-10.4); PLATELET COUNT 126 K/uL (130-400); RED BLOOD COUNT 4.74 M/uL (4.7-6.1); WHITE BLOOD COUNT 10.95 K/uL (4.8-10.8)
[2017-04-30] MEDS: PIPERACILL/TAZOBAC IV 4.5 GM in DEXTROSE 5% 100ML IV SCH ×2 (06:28→15:02)
[2017-04-30] MEDS: LEVOTHYROXINE 25 MCG TAB PO SCH (06:28)
[2017-04-30 06:30] LABS: INR 1.2 (0.9-1.1); PARTIAL THROMBOPLASTIN RATIO 1.4; PROTHROMBIN TIME (PATIENT) 13.2 SECONDS (9.0-12.0)
[2017-04-30] MEDS: HEPARIN SOD 5000 UNIT/0.5 ML CARP SQ SCH ×3 (06:30→22:21)
[2017-04-30 06:54] LABS: BUN/CREATININE RATIO 21.9 (10-20); CALCIUM 8.6 mg/dl (8.5-10.1); CREATININE 2.5 mg/dl (0.60-1.40); MAGNESIUM 2.6 mg/dl (1.8-2.4); POTASSIUM 3.3 mmol/L (3.5-5.1)
[2017-04-30 06:56] LABS: BASO % 0.5 %; BASO ABS # 0.05 K/uL (0-0.2); COMPLETE YES; EOS % 0.1 %; IG% 2.4 %; LYMPH % 5.7 %; LYMPH ABS # 0.62 K/uL (1.2-3.4); MONO % 18.8 %; NEUT % 72.5 %
[2017-04-30 07:02] LABS: PHOSPHORUS 3.9 mg/dl (2.5-4.9)
[2017-04-30] MEDS ORDERED: ONDANSETRON 4MG OD TAB PO STA (08:31)
[2017-04-30] MEDS ORDERED: POTASSIUM PHOS 3 MMOL/1 ML INFUSION IV STA (08:31)
--- NOTE | 2017-04-30 08:38 | Critical Care Progress Note ---
Critical Care Progress Note Date of Service Apr 30, 2017. ICU Day ICU Day Number: [address] Ortiz Subjective Pt was seen and examined at bedside. Pt isn't feeling great this morning. Pt vomited during exam. He also vomited overnight. Pt continues to have loose stools - described "not exactly as C. Diff because it's more watery", according to the nursing staff. Pt produced 850mls of urine over an 8 hour shift. Pt continues to have radicular pain shooting down both legs. Both ankles, both knees and both legs are hurting him. ROS: No chest pain, no dyspnea, +vomiting, +loose stools, no palpitations, no fevers, no chills. Objective Gen: No acute distress. Pt is obese. HEENT: Head - normocephalic and atraumatic. Pupils are equal, round, and reactive to light. Extraocular eye muscles are intact and sclera are anicteric. Ears - bilaterally patent canals with noninjected tympanic membranes and no evidence of hemotympanum. Nose - moist nasal mucosa without discharge. Mouth - moist buccal mucosa. Oropharynx is nonerythematous and there is no tonsillar exudate or edema noted. Neck: Supple; no JVD, nuchal rigidity, cervical lymphadenopathy, or auscultated bruits. Heart: Regular rate and rhythm. There is a normal S1 and S2 with no murmurs, clicks, or gallops appreciated. Lungs: Clear to auscultation bilaterally with no wheezes, rales, or rhonchi. Abdomen: Soft, completely nontender, nondistended, with good bowel sounds. There are no palpable pulsatile masses or hepatosplenomegaly. There is no guarding, rigidity, or rebound noted. Extremities:Left extremity: Area of indurated erythema over the anterior, medial and lateral aspect of left leg. 2+ pitting edema. Pt has noticeable decreased ROM in the left leg (chronic) of unknown etiology. Distal pulses 2+ bilaterally. There is painter sign maintenance the Left lower extremity. 1.5cm clean laceration at bottom of left foot, no signs of infection or inflammation. Marker outline applied to left leg erythema border at approx 11am on 04/27/17 and a smaller area was outline on 04/28/17. Worsening induration on 04/29/17. Erythema and weeping has improved from 04/29/17. Improving clinical presentation. Leg does not bother pt, pt states the leg is pain free although he does have a history of neuropathy. Pt has edematous uppper and lower extremities. RLE: non edematous, no skin changes. FROM. Neuro:The patient is awake and alert, oriented to day, time, and place. There are no cerebellar signs. Current SOFA Score SOFA Score Response (Comments) Value Platelets (x10) < 150 1 Bilirubin (mg/dL) < 1.2 0 Mikala Coma Score 15 0 Level of Hypotension No Hypotension 0 Creatinine (mg/dL) 2.0 - 3.4 2 Total 3 Assessment & Plan Reason Critically Ill: Patient is an 66-year-old male who is transferred to the ICU for hypotension 2/2 Gram positive bacteremia s/p fluid resuscitation. Source is likely the left lower extremity. Pt is off pressors on 04/29. Blood culture sensitivities returned a Group B Beta Hemolytic strep sensitive to Rocephin. Wound is improving. Clinical complaints are related to GI complaints (n/v). ID: Sepsis 2/2 Cellulitis * Infectious source is likely left lower leg cellulitis. * Blood cultures grew Gram positive cocci. (Group B Beta Strep sensitive to Rocephin). * Repeat blood culture no growth to date. * WBC today 25.18-->19.6-->13.1-->11.0 * s/p 2 days of Vanc and Clinda. * ID (Dr. Ward) - recommends Rocephin 2g daily. * continue Vitamin C 1.5g daily. * Continue Zosyn Day #2 * Recommend compression stockings for venous stasis as outpatient. CV: Hypotension 2/2 Sepsis s/p Levophed (Resolved) * continue to hold home Hypertension Medications due to renal dysfunction. * EKG in emergency department and significant ectopy which calculated a QTC of greater than 600; recalculated and ICU as 469 * EKG today - no significant change was found, QTC < 500. * Ectopy greatly improved after fluid resuscitation and electrolyte initiation * Trans esophageal echo - grossly normal, consider MATY if patient does not improve to determine Abx dose. * Continue ASA 81mg daily (on as outpatient). CHF * Pt is edematous, BNP was 50064. * s/p 3 bottles of 25g 25% albumin. * Echo: Ejection Fraction = 60-65%. * Will fluid restrict to 2L daily. * Will order a chest x-ray to evaluate for fluid overload. Neuro: * Patient complained of his normal neuropathy discomfort in the emergency department and was permitted to take his home dose of Lyrica * Continue Lyrica 100mg TID. Will renally dose per GFR. * Continue home Percocet 1 tab TID PRN pain. Resp: * Diagnosed outpatient with sleep apnea; uses nasal mask at night on CPAP. OK to use home face mask. * Oxygen saturations are excellent. * Supplemental oxygen as required. Fluids/Renal: JERRY, not prerenal. * Creatinine improving 2.5<-- 2.6<--2.4<--1.7, baseline 1.4. * Excellent urine output overnight. (2nd night in a row) * Rodriguez to gravity. * s/p 3 doses of 25gm in 25% solution Albumin. * Urine Sodium - FeNa is 0.1% which is suggestive on contrast induced nephropathy. * No IVF, Will fluid restrict to 2L/day PO. Renal Mass * Per CT: 15 mm hyperdense mid pole posterior left renal mass: Presumed neoplastic until proven otherwise * Pt will need follow up with urology as outpatient. GI/Nutrition: * Diet: Heart Healthy * GI Prophylaxis: continue Ranitidine 150 mg PO BID * Nausea/Vomiting: Zofran 4mg ODT Q4H PRN. * Diarrhea : C. Diff negative on 04/26, consider repeat if stools continue to be loose. * Will order abdominal X-ray to look for free air under the diaphragm. Heme: * Hgb 11.0, platelets 126 * DVT Prophylaxis: Left Lower extremity doppler negative, continue Heparin 5, 000unit SQ q8h. * continue to monitor. Endocrine: * Accu-Checks per protocol, started insulin infusion for 2 blood sugars greater than 180 * A1C: 5.3 * Hypothyroidism: continue 25mcg Synthroid daily. * Electrolytes: Na 139, K+ 3.3 , Mg 2.6 and Phos 3.9. * Pt given 15mmol K Phos today, monitor and replete. MSK Bilateral Neuropathy s/p back surgery * Continue Collette 100mg TID (on 200mg TID at home) Full Code Critical care attending I was present with Dr. Thomas during the history and exam. I discussed the case with the resident and agree with the findings and plan as documented in the note. Any exceptions or clarifications are listed here: Patient with septic shock secondary to Streptococcus bacteremia, likely secondary to LLE cellulitis, now off Levophed JERRY Ileus GUS Remains off pressors. Still with persistent cellulitis, developed weeping for 2 days. The calf feels less swollen overall Has been vomiting today, with excessive abdominal distention. Sepsis/cellulitis - Off pressors. Blood Cx growing group B streptococcus. Continue on Rocephin for now, 2 gm daily Repeat blood cultures negative Wound care team evaluated the patient, wrapped the leg. Elevate leg Ileus - Abdominal xray showed distended stomach. NGT inserted, so far he drained almost 4000 ml, with improvement in his abdominal distention Start Reglan today NPO Monitor BM, consider CT abdomen if he doesn't improve JERRY - creatinine plateaued today, good urine output Likely contrast induced nephropathy. FeNa is 0.1% which also goes along with SARAH. Gentle hydration, Normosol at 75 ml/hr GUS - unable to use CPAP while NGT is in place Documented By: Paulino Ortiz MD Critical care time spent with the patient, his , discussing the patient during rounds, greater than 30 minutes Consults & Procedures Consultants: Heme/Onc - Dr. Finch (signed off) Infection Disease Consult - 04/29/17 Wound Care Nurse - 04/29/17 Procedures: NA Data Medications: Current Inpatient Medications Medications (Trade) Dose Ordered Sig/[place] Route Start Time Stop Time Status Last Admin Dose Admin Ioversol (Optiray 320) 100 ml UD PRN IV 04/26/17 15:30 04/30/17 15:29 Aspirin (Ecotrin Tab) 81 mg QPM PO 04/27/17 21:00 05/27/17 20:59 04/29/17 20:29 81 MG Cholecalciferol (Vitamin D Tab) 1,000 inter.unit QAM PO 04/27/17 09:00 05/27/17 08:59 04/29/17 08:47 1,000 INTER.UNIT Levothyroxine Sodium (Synthroid Tab) 25 mcg DAILYBB PO 04/27/17 06:00 05/27/17 05:59 7/27/17 06:28 25 MCG Montelukast Sodium (Singulair Tab) 10 mg HS PO 04/27/17 21:00 05/27/17 20:59 04/29/17 20:29 10 MG Multivitamins/ Minerals (Multivitamin W/ Minerals Tab) 1 tab DAILY PO 04/27/17 09:00 05/27/17 08:59 04/29/17 08:47 1 TAB Heparin Sodium (Porcine) (Heparin Sq 5000 Unit/0.5ml) 5,000 unit Q8 SQ 04/27/17 06:00 05/27/17 05:59 04/30/17 06:30 5,000 UNIT Norepinephrine Bitartrate 8 mg/ Dextrose 508 ml @ 0 mls/hr Q0M PRN IV 04/27/17 06:33 05/27/17 06:32 04/27/17 07:05 13 MLS/HR Ascorbic Acid (Vitamin C Tab) 1,000 mg QAM PO 04/27/17 09:00 05/27/17 08:59 04/29/17 08:48 1,000 MG Heparin Sodium (Porcine) (Heparin 10 Unit/ ml 5 ml Flush) 5 ml PRN PRN FLUSH 04/28/17 01:30 05/28/17 01:29 04/29/17 10:38 5 ML Ranitidine HCl (zANTac TAB) 150 mg QAM PO 04/29/17 09:00 05/29/17 08:59 04/29/17 08:47 150 MG Pregabalin (Lyrica Cap) 100 mg TID PO 04/28/17 14:00 05/28/17 13:59 04/29/17 20:29 100 MG Piperacillin Sod/ Tazobactam Sod 4.5 gm/Dextrose 120 ml @ 30 mls/hr Q8H IV 04/29/17 22:00 05/09/17 21:59 04/30/17 06:28 30 MLS/HR Piperacillin Sod/ Tazobactam Sod (Consult) 1 ea UD PRN N/A 04/29/17 16:15 05/29/17 16:14 Acetaminophen (Tylenol Tab) 650 mg TID PRN PO 04/29/17 21:00 05/29/17 08:59 Oxycodone/ Acetaminophen (Percocet 10-325MG Tab) 1 tab Q4 PRN PO 04/29/17 20:00 05/10/17 22:59 04/29/17 20:43 1 TAB Vital Signs: Date Time Temp Pulse Resp B/P (MAP) Pulse Ox O2 Delivery O2 Flow Rate FiO2 04/30/17 06:01 47 139/52 (81) 92 04/30/17 05:01 42 20 132/50 (77) 91 04/30/17 04:01 36.6 87 23 134/58 (83) 93 04/30/17 04:01 87 23 134/58 (83) 93 04/30/17 04:00 87 19 94 04/30/17 04:00 97 Room Air 04/30/17 03:01 69 22 141/83 (102) 95 04/30/17 03:01 69 22 141/83 (102) 95 04/30/17 02:01 82 21 119/55 (76) 96 04/30/17 02:01 82 21 119/55 (76) 96 04/30/17 02:00 83 20 94 04/30/17 02:00 83 20 94 04/30/17 00:01 83 21 133/63 (86) 95 04/30/17 00:01 36.8 83 21 133/63 (86) 95 Room Air 04/30/17 00:00 83 19 94 04/29/17 23:59 97 Room Air 04/29/17 23:52 83 96 2.0 04/29/17 22:00 36.7 87 20 134/65 (88) 95 Room Air 04/29/17 19:30 Room Air 04/29/17 19:30 36.7 87 20 137/53 (81) 95 Room Air 04/29/17 17:30 36.7 90 16 137/58 (84) 96 Room Air 04/29/17 15:40 36.4 82 16 124/51 (75) 96 Room Air 2.0 04/29/17 15:40 94 Room Air 21 04/29/17 14:01 89 16 130/56 (80) 94 Room Air 04/29/17 12:01 36.4 78 18 139/54 (82) 97 Room Air 04/29/17 12:00 Room Air 04/29/17 10:01 52 26 123/51 (75) 98 Nasal Cannula 2.0 Laboratory Results: Last 24 Hours Test 7/27/17 06:07 White Blood Count 10.95 K/uL Red Blood Count 4.74 M/uL Hemoglobin 13.2 g/dL Hematocrit 39.7 % Mean Corpuscular Volume 83.8 fL Mean Corpuscular Hemoglobin 27.8 pg Mean Corpuscular Hemoglobin Concent 33.2 g/dl Platelet Count 126 K/uL Mean Platelet Volume 11.3 fL Neutrophils (%) (Auto) 72.5 % Lymphocytes (%) (Auto) 5.7 % Monocytes (%) (Auto) 18.8 % Eosinophils (%) (Auto) 0.1 % Basophils (%) (Auto) 0.5 % Neutrophils # (Auto) 7.95 K/uL Lymphocytes # (Auto) 0.62 K/uL Monocytes # (Auto) 2.06 K/uL Eosinophils # (Auto) 0.01 K/uL Basophils # (Auto) 0.05 K/uL RDW Standard Deviation 48.1 fL RDW Coefficient of Variation 15.7 % Immature Granulocyte % (Auto) 2.4 % Immature Granulocyte # (Auto) 0.26 K/uL Prothrombin Time 13.2 SECONDS Prothromb Time International Ratio 1.2 Activated Partial Thromboplast Time 36.3 SECONDS Partial Thromboplastin Ratio 1.4 Sodium Level 139 mmol/L Potassium Level 3.3 mmol/L Chloride Level 107 mmol/L Carbon Dioxide Level 23 mmol/L Anion Gap 9.0 mmol/L Blood Urea Nitrogen 55 mg/dl Creatinine 2.50 mg/dl Est Creatinine Clear Calc Drug Dose 38.8 ml/min Estimated GFR () 29.5 Estimated GFR (Non- 25.4 BUN/Creatinine Ratio 21.9 Random Glucose 119 mg/dl Calcium Level 8.6 mg/dl Phosphorus Level 3.9 mg/dl Magnesium Level 2.6 mg/dl Total Bilirubin 0.6 mg/dl Direct Bilirubin 0.3 mg/dl Aspartate Amino Transf (AST/SGOT) 14 U/L Alanine Aminotransferase (ALT/SGPT) 23 U/L Alkaline Phosphatase 73 U/L Total Protein 6.4 gm/dl Albumin 2.3 gm/dl Resident Involvement: Resident Care Provided Care Provided: Adult [facility]
[2017-04-30] MEDS ORDERED: ONDANSETRON 4MG OD TAB PO PRN (08:45)
[2017-04-30] MEDS ORDERED: POTASSIUM PHOSPHATE INJ 15 MMOL in SODIUM CHLORIDE 0.9% 250ML 250 ML IV SCH (09:00)
[2017-04-30] MEDS: RANITIDINE HCL 150 MG TAB PO SCH (09:36)
[2017-04-30] MEDS: CEROVITE ADV FORMULA TAB PO SCH (09:36)
[2017-04-30] MEDS: ASCORBIC ACID 500 MG TAB PO SCH (09:36)
[2017-04-30] MEDS: CHOLECALCIFEROL 1000 INTER.UNIT TAB PO SCH (09:36)
[2017-04-30] MEDS: PREGABALIN 100 MG CAP PO SCH ×3 (09:39→21:32)
--- NOTE | 2017-04-30 11:30 | DIAGNOSTIC IMAGING REPORT ---
ABDOMEN 2 VIEWS CLINICAL HISTORY: Abdominal distension pain COMPARISON STUDY: 08/22/2015 FINDINGS: Air-filled gastric distention. Air-filled distention of what appears to be components of the transverse colon. No secondary evidence for free air. Several nonspecific air-fluid levels within the small bowel. IMPRESSION: 1. Gastric distention. 2. Mild colonic distention of the transverse colonic regions. 3. Nonspecific small bowel ileus. 4. Close monitoring is recommended to exclude any possibility of a developing obstructive process. The above report was generated using voice recognition software. It may contain grammatical, syntax or spelling errors. Electronically signed by: Aníbal Mancini M.D. 04/30/2017 11:29 AM Dictated Date/Time: 04/30/2017 11:26 AM
--- NOTE | 2017-04-30 11:32 | DIAGNOSTIC IMAGING REPORT ---
SINGLE VIEW CHEST CLINICAL HISTORY: Dyspnea. FINDINGS: An AP, portable, upright chest radiograph is compared to study dated 04/28/2017. Correlation is made with chest CT dated 03/18/2016. The examination is degraded by portable technique, large body habitus, and patient rotation. A right internal jugular central venous catheter is unchanged in position. The heart is enlarged and there is atherosclerotic calcification of the thoracic aorta. The pulmonary vasculature is noncongested. There is chronic interstitial thickening and elevation of the right hemidiaphragm. No lobar consolidation or large pleural effusion is identified. No pneumothorax is seen. The skeletal structures are osteopenic. The bony thorax is grossly intact. IMPRESSION: 1. Cardiomegaly without radiographic evidence of congestive failure. 2. No airspace consolidation or large pleural effusion is seen. Electronically signed by: Lucas Guadalupe M.D. 04/30/2017 11:31 AM Dictated Date/Time: 04/30/2017 11:29 AM
--- NOTE | 2017-04-30 12:09 | DIAGNOSTIC IMAGING REPORT ---
CHEST ONE VIEW PORTABLE CLINICAL HISTORY: NG tube placement tube position COMPARISON STUDY: 04/30/2017 10:59 AM FINDINGS: Placement of nasogastric tube within the stomach. All remaining components of the study are unchanged. IMPRESSION: Nasogastric tube is within the stomach. The above report was generated using voice recognition software. It may contain grammatical, syntax or spelling errors. Electronically signed by: Aníbal Mancini M.D. 04/30/2017 12:07 PM Dictated Date/Time: 04/30/2017 12:06 PM
--- NOTE | 2017-04-30 12:33 | Medical Consult ---
Consultation Date of Consultation: Apr 30, 2017. Attending Physician: Humberto Ramirez D.O. Reason for Consultation: Strep bacteremia History of Present Illness 58-year-old male with history of hyperlipidemia, chronic lower extremity lymphedema, recurrent left lower extremity cellulitis, who was admitted to the hospital with evidence of acute sepsis with hypotension with severe left lower extremity cellulitis. He required pressor support and had evidence of acute kidney injury. Was started on vancomycin and clindamycin, and changed to Zosyn yesterday. Blood cultures now positive for group B Streptococcus. Patient feeling slightly better, no extension of erythema over last 24 hours. Creatinine may have peaked. Has small cut on the bottom of his left foot. No surrounding erythema or purulence. Past Medical/Surgical History Medical Problems: (1) Anemia Status: Acute (2) Confusion Status: Acute (3) Diarrhea Status: Acute (4) GI bleed Status: Acute (5) Neuropathy Status: Chronic (6) Severe sepsis Status: Acute Medical Problems: (1) Acid reflux (2) Acute kidney injury (3) Calculus Of Kidney (4) Cellulitis (5) Erectile dysfunction (6) Fever (7) Hyperlipidemia Nec/Nos (8) Hypertension (9) Hypotension (10) Hypothyroidism (11) Leukocytosis (12) Metabolic acidosis with increased anion gap and accumulation of organic acids (13) Neuropathy (14) Obesity (15) Pneumonia (16) Sepsis (17) Sepsis (18) Septic shock (19) Septicemia due to group B Streptococcus (20) SIRS (systemic inflammatory response syndrome) (21) Sleep apnea (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 (23) Spinal Stenosis, Lumbar Reg, W/Out Neurogenic Claudication Surgical Problems: (1) History of right hemicolectomy Family History Blood clots FH: diabetes mellitus FHx: pulmonary embolism Social History Smoking Status: Former Smoker Drug Use: none Marital Status: Housing Status: lives with family Occupation Status: retired Allergies Coded Allergies: Tetracycline (Verified Allergy, Unknown, SORES IN MOUTH, 04/26/17) Current Inpatient Medications Current Inpatient Medications Medications (Trade) Dose Ordered Sig/[place]onte Route Start Time Stop Time Status Last Admin Dose Admin Ioversol (Optiray 320) 100 ml UD PRN IV 04/26/17 15:30 04/30/17 15:29 Aspirin (Ecotrin Tab) 81 mg QPM PO 04/27/17 21:00 05/27/17 20:59 04/29/17 20:29 81 MG Cholecalciferol (Vitamin D Tab) 1,000 inter.unit QAM PO 04/27/17 09:00 05/27/17 08:59 04/30/17 09:36 1,000 INTER.UNIT Levothyroxine Sodium (Synthroid Tab) 25 mcg DAILYBB PO 04/27/17 06:00 05/27/17 05:59 04/30/17 06:28 25 MCG Montelukast Sodium (Singulair Tab) 10 mg HS PO 04/27/17 21:00 05/27/17 20:59 04/29/17 20:29 10 MG Multivitamins/ Minerals (Multivitamin W/ Minerals Tab) 1 tab DAILY PO 04/27/17 09:00 05/27/17 08:59 04/30/17 09:36 1 TAB Heparin Sodium (Porcine) (Heparin Sq 5000 Unit/0.5ml) 5,000 unit Q8 SQ 04/27/17 06:00 05/27/17 05:59 04/30/17 06:30 5,000 UNIT Ascorbic Acid (Vitamin C Tab) 1,000 mg QAM PO 04/27/17 09:00 05/27/17 08:59 04/30/17 09:36 1,000 MG Heparin Sodium (Porcine) (Heparin 10 Unit/ ml 5 ml Flush) 5 ml PRN PRN FLUSH 04/28/17 01:30 05/28/17 01:29 04/29/17 10:38 5 ML Ranitidine HCl (zANTac TAB) 150 mg QAM PO 04/29/17 09:00 05/29/17 08:59 04/30/17 09:36 150 MG Pregabalin (Lyrica Cap) 100 mg TID PO 04/28/17 14:00 05/28/17 13:59 04/30/17 09:39 100 MG Piperacillin Sod/ Tazobactam Sod 4.5 gm/Dextrose 120 ml @ 30 mls/hr Q8H IV 04/29/17 22:00 05/09/17 21:59 04/30/17 06:28 30 MLS/HR Piperacillin Sod/ Tazobactam Sod (Consult) 1 ea UD PRN N/A 04/29/17 16:15 05/29/17 16:14 Acetaminophen (Tylenol Tab) 650 mg TID PRN PO 04/29/17 21:00 05/29/17 08:59 Oxycodone/ Acetaminophen (Percocet 10-325MG Tab) 1 tab Q4 PRN PO 04/29/17 20:00 05/10/17 22:59 04/29/17 20:43 1 TAB Ondansetron HCl (Zofran Odt) 4 mg Q8H PRN PO 04/30/17 08:45 05/30/17 08:44 Parenteral Electrolyte Solution 1,000 ml @ 50 mls/hr Q20H IV 04/30/17 11:30 05/30/17 11:29 Metoclopramide HCl (Reglan Inj) 10 mg Q6H IV 04/30/17 11:45 05/01/17 11:44 UNV Review of Systems Constitutional: + fever, + chills Eyes: No problem reported ENT: No problem reported Respiratory: No problem reported Cardiovascular: No problem reported Abdomen: + nausea, + vomiting Musculoskeletal: + muscle pain Genitourinary - Male: No problem reported Neurologic: No problem reported Psychiatric: No problem reported Endocrine: No problem reported Hematologic / Lymphatic: No problem reported Integumentary: + new/changing skin lesions Allergic / Immunologic: No problem reported Physical Exam Date Time Temp Pulse Resp B/P (MAP) Pulse Ox O2 Delivery O2 Flow Rate FiO2 04/30/17 10:08 Nasal Cannula 04/30/17 09:00 52 21 92 04/30/17 08:01 46 19 158/63 (94) 92 04/30/17 08:00 46 26 93 04/30/17 07:30 92 Room Air 04/30/17 07:01 36.8 51 26 152/78 (102) 93 Room Air 04/30/17 07:00 44 25 93 04/30/17 06:01 47 139/52 (81) 92 04/30/17 05:01 42 20 132/50 (77) 91 04/30/17 04:01 36.6 87 23 134/58 (83) 93 04/30/17 04:01 87 23 134/58 (83) 93 04/30/17 04:00 87 19 94 04/30/17 04:00 97 Room Air 04/30/17 03:01 69 22 141/83 (102) 95 04/30/17 03:01 69 22 141/83 (102) 95 04/30/17 02:01 82 21 119/55 (76) 96 04/30/17 02:01 82 21 119/55 (76) 96 04/30/17 02:00 83 20 94 04/30/17 02:00 83 20 94 04/30/17 00:01 83 21 133/63 (86) 95 04/30/17 00:01 36.8 83 21 133/63 (86) 95 Room Air 04/30/17 00:00 83 19 94 04/29/17 23:59 97 Room Air 04/29/17 23:52 83 96 2.0 04/29/17 22:00 36.7 87 20 134/65 (88) 95 Room Air 04/29/17 19:30 Room Air 04/29/17 19:30 36.7 87 20 137/53 (81) 95 Room Air 04/29/17 17:30 36.7 90 16 137/58 (84) 96 Room Air 04/29/17 15:40 36.4 82 16 124/51 (75) 96 Room Air 2.0 04/29/17 15:40 94 Room Air 21 04/29/17 14:01 89 16 130/56 (80) 94 Room Air General Appearance: WD/WN, + mild distress, + obese Head: normocephalic, atraumatic Eyes: normal inspection, EOMI, sclerae normal ENT: normal ENT inspection, hearing grossly normal, pharynx normal Neck: supple, no adenopathy, thyroid normal, trachea midline Respiratory/Chest: chest non-tender, lungs clear, normal breath sounds, no respiratory distress Cardiovascular: regular rate, rhythm, no gallop, no murmur Abdomen/GI: normal bowel sounds, non tender, soft, no organomegaly Back: normal inspection, no CVA tenderness Extremities/Musculoskelatal: normal capillary refill, + inflammation ( Left lower leg), + swelling ( left lower leg) Neurologic/Psych: alert, oriented x 3 Skin: normal color, no rash, + pertinent finding ( left lower extremity cellulitis from below the knee to the foot, with swelling and some weeping of serous fluid) Lymphatic: no adenopathy Laboratory Results RUN DATE: 04/29/17 [facility] LAB PAGE 1 RUN TIME: 1141 Specimen Inquiry PATIENT: AMANDA WILLARD LOC: [facility] U # : [id number] AGE/SX: 66/M ROOM: E107 REG : 04/26/[address]: Humberto Ramirez D.O. : 1950 BED: 1 DIS : STATUS: ADM IN TLOC: SPEC #: [id number] DHEERAJ: 04/26/17 STATUS: COMP REQ #: [id number] RECD: 04/26/[address]: Breonna Mas DO SOURCE: BLOOD ENTR: 04/26/17 [facility] DR: Carlo Willingham M.D. SPDESC: ORDERED: BLOOD CULTURE COMMENTS: Comments to Research [employer] SAME TIME DIFFERENT SITES Procedure Result Verified Site BLD CULT Final 04/29/17-1141 Organism 1 GROUP B BETA STREP SENS SENSITIVITY TO FOLLOW Phoned Positive Blood Culture Gram Stain Report to JUANPABLO LANTIGUA on 04/27/17 At 0644 By [employer]. Results were verbalized back to [employer]. 1. GROUP B BETA STREP Target Route Dose RX AB Cost M.I.C. IQ ------ ----- ------ -- ------ -------- - ------ AMPICILLIN S 0.12 CEFOTAXIME S <=0.25 CEFTRIAXONE S <=0.25 CEFEPIME S <=0.25 CHLORAMPHENICOL S 2 VANCOMYCIN S 0.5 PENICILLIN S 0.06 ERYTHROMYCIN R >0.5 CLINDAMYCIN R >0.5 AZITHROMYCIN R >2 ## D-TEST is positive. This isolate is presumed to be resistant based on detection of inducible clindamycin resistance. S = SENSITIVE I = INTERMEDIATE R = RESISTANT END OF REPORT Last 24 Hours Test 04/30/17 06:07 White Blood Count 10.95 K/uL Red Blood Count 4.74 M/uL Hemoglobin 13.2 g/dL Hematocrit 39.7 % Mean Corpuscular Volume 83.8 fL Mean Corpuscular Hemoglobin 27.8 pg Mean Corpuscular Hemoglobin Concent 33.2 g/dl Platelet Count 126 K/uL Mean Platelet Volume 11.3 fL Neutrophils (%) (Auto) 72.5 % Lymphocytes (%) (Auto) 5.7 % Monocytes (%) (Auto) 18.8 % Eosinophils (%) (Auto) 0.1 % Basophils (%) (Auto) 0.5 % Neutrophils # (Auto) 7.95 K/uL Lymphocytes # (Auto) 0.62 K/uL Monocytes # (Auto) 2.06 K/uL Eosinophils # (Auto) 0.01 K/uL Basophils # (Auto) 0.05 K/uL RDW Standard Deviation 48.1 fL RDW Coefficient of Variation 15.7 % Immature Granulocyte % (Auto) 2.4 % Immature Granulocyte # (Auto) 0.26 K/uL Prothrombin Time 13.2 SECONDS Prothromb Time International Ratio 1.2 Activated Partial Thromboplast Time 36.3 SECONDS Partial Thromboplastin Ratio 1.4 Sodium Level 139 mmol/L Potassium Level 3.3 mmol/L Chloride Level 107 mmol/L Carbon Dioxide Level 23 mmol/L Anion Gap 9.0 mmol/L Blood Urea Nitrogen 55 mg/dl Creatinine 2.50 mg/dl Est Creatinine Clear Calc Drug Dose 38.8 ml/min Estimated GFR () 29.5 Estimated GFR (Non- 25.4 BUN/Creatinine Ratio 21.9 Random Glucose 119 mg/dl Calcium Level 8.6 mg/dl Phosphorus Level 3.9 mg/dl Magnesium Level 2.6 mg/dl Total Bilirubin 0.6 mg/dl Direct Bilirubin 0.3 mg/dl Aspartate Amino Transf (AST/SGOT) 14 U/L Alanine Aminotransferase (ALT/SGPT) 23 U/L Alkaline Phosphatase 73 U/L Total Protein 6.4 gm/dl Albumin 2.3 gm/dl CHEST ONE VIEW PORTABLE CLINICAL HISTORY: NG tube placement tube position COMPARISON STUDY: 04/30/2017 10:59 AM FINDINGS: Placement of nasogastric tube within the stomach. All remaining components of the study are unchanged. IMPRESSION: Nasogastric tube is within the stomach. The above report was generated using voice recognition software. It may contain grammatical, syntax or spelling errors. Assessment & Plan 58-year-old male with acute group B streptococcal sepsis with left lower extremity cellulitis and acute kidney injury. As discussed, patient has been changed to IV ceftriaxone 2 grams daily, and likely will require in the range of 10 days of IV antibiotics. We will continue to follow.
[2017-04-30] MEDS: NORMOSOL R 1,000 ML IV SCH (14:59)
[2017-04-30] MEDS: METOCLOPRAMIDE HCL INJ 5 MG/ML 2 ML VIAL IV. SCH ×3 (15:02→23:37)
[2017-04-30] MEDS ORDERED: ONDANSETRON INJ 2 MG/ML 2 ML VIAL IV ONE (15:04)
[2017-04-30] MEDS: OXYCODONE/ACETAMINOPHEN 10/325MG TAB PO PRN ×2 (17:05→22:25)
[2017-04-30] MEDS: CEFTRIAXONE SOD INJ 2,000 MG in DEXTROSE 5% 50ML 50 ML IV SCH (18:01)
--- NOTE | 2017-04-30 19:41 | Progress Note ---
Subjective Date of Service: Apr 30, 2017. Subjective Pt evaluation today including: conversation w/ patient, conversation w/ family , physical exam, chart review, lab review, review of studies, conversation w/ it architecture consultant, review of inpatient medication list leg looking a little better. has abdominal distention and nausea. NGT placed with significant output. d/w dr coker and marcelo all other ROS otherwise negative except for as above, fairly limited Problem List Medical Problems: (1) Anemia Status: Acute (2) Confusion Status: Acute (3) Diarrhea Status: Acute (4) GI bleed Status: Acute (5) Neuropathy Status: Chronic (6) Severe sepsis Status: Acute Review of Systems all other ROS otherwise negative except for as above Objective Vital Signs Date Time Temp Pulse Resp B/P (MAP) Pulse Ox O2 Delivery O2 Flow Rate FiO2 04/30/17 15:21 95 Room Air 04/30/17 14:01 78 22 158/74 (102) 92 Room Air 04/30/17 14:00 78 20 93 04/30/17 13:01 71 21 152/66 (94) 92 04/30/17 13:00 85 19 93 04/30/17 12:01 36.9 54 20 147/77 (100) 95 Room Air 04/30/17 12:00 55 14 95 04/30/17 11:45 94 Room Air 04/30/17 11:02 51 25 173/79 (110) 93 04/30/17 11:00 51 24 89 04/30/17 10:08 Nasal Cannula 04/30/17 10:01 51 23 155/74 (101) 92 Room Air 04/30/17 10:00 51 26 91 04/30/17 09:00 52 21 92 04/30/17 08:01 46 19 158/63 (94) 92 04/30/17 08:00 46 26 93 04/30/17 07:30 92 Room Air 04/30/17 07:01 36.8 51 26 152/78 (102) 93 Room Air 04/30/17 07:00 44 25 93 04/30/17 06:01 47 139/52 (81) 92 04/30/17 05:01 42 20 132/50 (77) 91 04/30/17 04:01 36.6 87 23 134/58 (83) 93 04/30/17 04:01 87 23 134/58 (83) 93 04/30/17 04:00 87 19 94 04/30/17 04:00 97 Room Air 04/30/17 03:01 69 22 141/83 (102) 95 04/30/17 03:01 69 22 141/83 (102) 95 04/30/17 02:01 82 21 119/55 (76) 96 04/30/17 02:01 82 21 119/55 (76) 96 04/30/17 02:00 83 20 94 04/30/17 02:00 83 20 94 04/30/17 00:01 83 21 133/63 (86) 95 04/30/17 00:01 36.8 83 21 133/63 (86) 95 Room Air 04/30/17 00:00 83 19 94 04/29/17 23:59 97 Room Air 04/29/17 23:52 83 96 2.0 04/29/17 22:00 36.7 87 20 134/65 (88) 95 Room Air Physical Exam General Appearance: no apparent distress Eyes: EOMI ENT: hearing grossly normal Neck: trachea midline Respiratory/Chest: no respiratory distress, no accessory muscle use Abdomen: + distended Extremities: normal range of motion Neurologic/Psychiatric: tool supervisor II-XII nml as tested, alert, normal mood/affect Skin: + pertinent finding (LLE erythema improving - less bright red, did not expand further) Laboratory Results Last 24 Hours Test 04/30/17 06:07 04/30/17 12:03 White Blood Count 10.95 K/uL Red Blood Count 4.74 M/uL Hemoglobin 13.2 g/dL Hematocrit 39.7 % Mean Corpuscular Volume 83.8 fL Mean Corpuscular Hemoglobin 27.8 pg Mean Corpuscular Hemoglobin Concent 33.2 g/dl Platelet Count 126 K/uL Mean Platelet Volume 11.3 fL Neutrophils (%) (Auto) 72.5 % Lymphocytes (%) (Auto) 5.7 % Monocytes (%) (Auto) 18.8 % Eosinophils (%) (Auto) 0.1 % Basophils (%) (Auto) 0.5 % Neutrophils # (Auto) 7.95 K/uL Lymphocytes # (Auto) 0.62 K/uL Monocytes # (Auto) 2.06 K/uL Eosinophils # (Auto) 0.01 K/uL Basophils # (Auto) 0.05 K/uL RDW Standard Deviation 48.1 fL RDW Coefficient of Variation 15.7 % Immature Granulocyte % (Auto) 2.4 % Immature Granulocyte # (Auto) 0.26 K/uL Prothrombin Time 13.2 SECONDS Prothromb Time International Ratio 1.2 Activated Partial Thromboplast Time 36.3 SECONDS Partial Thromboplastin Ratio 1.4 Sodium Level 139 mmol/L Potassium Level 3.3 mmol/L Chloride Level 107 mmol/L Carbon Dioxide Level 23 mmol/L Anion Gap 9.0 mmol/L Blood Urea Nitrogen 55 mg/dl Creatinine 2.50 mg/dl Est Creatinine Clear Calc Drug Dose 38.8 ml/min Estimated GFR () 29.5 Estimated GFR (Non- 25.4 BUN/Creatinine Ratio 21.9 Random Glucose 119 mg/dl Calcium Level 8.6 mg/dl Phosphorus Level 3.9 mg/dl Magnesium Level 2.6 mg/dl Total Bilirubin 0.6 mg/dl Direct Bilirubin 0.3 mg/dl Aspartate Amino Transf (AST/SGOT) 14 U/L Alanine Aminotransferase (ALT/SGPT) 23 U/L Alkaline Phosphatase 73 U/L Total Protein 6.4 gm/dl Albumin 2.3 gm/dl Bedside Glucose 121 mg/dl Assessment and Plan Sepsis likely secondary to left lower extremity cellulitis Meets criteria with hypotension, tachycardia, fever, elevated lactate - BC positive for group B streptococci ,UC neg so far, MRSA positive, Stool cultures negative - CT head revealed left mastoid effusion, Left posterior parietal scalp nodule which do not appear to be infected - Ct abd/pelvis: - Postsurgical changes of a right hemicolectomy. - No evidence of bowel obstruction. No evidence of free air - Mild adenopathy - Hepatic steatosis. Mild splenomegaly - Possible cholelithiasis - Left-sided nephrolithiasis - Echo: * Technically limited study. * Left ventricular systolic function is normal. * No regional wall motion abnormalities noted. * Ejection Fraction = 60-65%. * Grade I diastolic dysfunction, (abnormal relaxation pattern). -rocephin -improving sepsis related ileus -NGT, NPO, supportive care, time History of several bacteremias/sepsis including meningitis, pneumonia, cellulitis: - possible underlying complement/ immune globulin deficiency - Recommend outpatient workup - ID notes that he might be candidate for suppressive therapy Acute renal failure: - due to sepsis, likely mild ATN, follow for recovery Renal mass on CT: - stable since 2014, followed by urology - Appreciate Hematology/oncology recs Right adrenal gland nodule: - likely incidentaloma GERD - Ranitidine 150mg PO qam ( renally dosed) Asthma - continue montelukast GUS - continue CPAP at night Peripheral Neuropathy - continue pregabalin( renally dosed) Hypothyroidism - continue levothyroxine 25 mcg DVT Prophylaxis - heparin 5000 units SQ Q8H Code - Full Disposition - Monitored in ICU
[2017-04-30] MEDS: ASPIRIN 81 MG ECTAB PO SCH (21:31)
[2017-04-30] MEDS: MONTELUKAST SOD 10 MG TAB PO SCH (21:31)
--- NOTE | 2017-04-30 21:36 | Family Medicine Progress Note ---
Progress Note Date of Service Apr 30, 2017. Subjective Pt evaluation today including: conversation w/ patient, conversation w/ family , physical exam, chart review, lab review, review of inpatient medication list Pain: Pain bilaterally down legs PO Intake: currently NPO Voiding: goode catheter in place Mr. Camacho reports that he is not feeling well today. He has been experiencing nausea and vomiting, as well as loose stools. He also reports neuropathic pain down both legs. He denies chest pain, SOB, fevers, or chills. Constitutional: No fever, No chills, No sweats, No weight loss Respiratory: No cough, No sputum, No wheezing, No shortness of breath Cardiovascular: No chest pain, No orthopnea, No PND Abdomen: + nausea, + vomiting, + diarrhea, No pain, No constipation All Other Systems: Reviewed and Negative Medications Current Inpatient Medications Medications (Trade) Dose Ordered Sig/[place] Route Start Time Stop Time Status Last Admin Dose Admin Aspirin (Ecotrin Tab) 81 mg QPM PO 04/27/17 21:00 05/27/17 20:59 04/29/17 20:29 81 MG Cholecalciferol (Vitamin D Tab) 1,000 inter.unit QAM PO 04/27/17 09:00 05/27/17 08:59 04/30/17 09:36 1,000 INTER.UNIT Levothyroxine Sodium (Synthroid Tab) 25 mcg DAILYBB PO 04/27/17 06:00 05/27/17 05:59 04/30/17 06:28 25 MCG Montelukast Sodium (Singulair Tab) 10 mg HS PO 04/27/17 21:00 05/27/17 20:59 04/29/17 20:29 10 MG Multivitamins/ Minerals (Multivitamin W/ Minerals Tab) 1 tab DAILY PO 04/27/17 09:00 05/27/17 08:59 04/30/17 09:36 1 TAB Heparin Sodium (Porcine) (Heparin Sq 5000 Unit/0.5ml) 5,000 unit Q8 SQ 04/27/17 06:00 05/27/17 05:59 04/30/17 15:03 5,000 UNIT Ascorbic Acid (Vitamin C Tab) 1,000 mg QAM PO 04/27/17 09:00 05/27/17 08:59 04/30/17 09:36 1,000 MG Heparin Sodium (Porcine) (Heparin 10 Unit/ ml 5 ml Flush) 5 ml PRN PRN FLUSH 04/28/17 01:30 05/28/17 01:29 04/29/17 10:38 5 ML Ranitidine HCl (zANTac TAB) 150 mg QAM PO 04/29/17 09:00 05/29/17 08:59 04/30/17 09:36 150 MG Pregabalin (Lyrica Cap) 100 mg TID PO 04/28/17 14:00 05/28/17 13:59 04/30/17 15:02 100 MG Acetaminophen (Tylenol Tab) 650 mg TID PRN PO 04/29/17 21:00 05/29/17 08:59 Oxycodone/ Acetaminophen (Percocet 10-325MG Tab) 1 tab Q4 PRN PO 04/29/17 20:00 05/10/17 22:59 04/30/17 17:05 1 TAB Ondansetron HCl (Zofran Odt) 4 mg Q8H PRN PO 04/30/17 08:45 05/30/17 08:44 Parenteral Electrolyte Solution 1,000 ml @ 75 mls/hr [id number] IV 04/30/17 11:30 05/30/17 11:29 04/30/17 14:59 50 MLS/HR Metoclopramide HCl (Reglan Inj) 10 mg Q6 IV. 04/30/17 12:30 05/30/17 12:29 04/30/17 18:22 10 MG Ceftriaxone Sodium 2000 mg/ Dextrose 70 ml @ 100 mls/hr Q24H IV 04/30/17 18:00 05/14/17 17:59 04/30/17 18:01 100 MLS/HR Objective Vital Signs Date Time Temp Pulse Resp B/P (MAP) Pulse Ox O2 Delivery O2 Flow Rate FiO2 04/30/17 20:00 37.0 87 18 137/55 (82) 97 Nasal Cannula 2.0 04/30/17 20:00 97 Nasal Cannula 2.0 04/30/17 19:00 89 13 133/67 (89) 97 Nasal Cannula 2.0 04/30/17 15:21 95 Room Air 04/30/17 14:01 78 22 158/74 (102) 92 Room Air 04/30/17 14:00 78 20 93 04/30/17 13:01 71 21 152/66 (94) 92 04/30/17 13:00 85 19 93 04/30/17 12:01 36.9 54 20 147/77 (100) 95 Room Air 04/30/17 12:00 55 14 95 04/30/17 11:45 94 Room Air 04/30/17 11:02 51 25 173/79 (110) 93 04/30/17 11:00 51 24 89 04/30/17 10:08 Nasal Cannula 04/30/17 10:01 51 23 155/74 (101) 92 Room Air 04/30/17 10:00 51 26 91 04/30/17 09:00 52 21 92 04/30/17 08:01 46 19 158/63 (94) 92 04/30/17 08:00 46 26 93 04/30/17 07:30 92 Room Air 04/30/17 07:01 36.8 51 26 152/78 (102) 93 Room Air 04/30/17 07:00 44 25 93 04/30/17 06:01 47 139/52 (81) 92 04/30/17 05:01 42 20 132/50 (77) 91 04/30/17 04:01 36.6 87 23 134/58 (83) 93 04/30/17 04:01 87 23 134/58 (83) 93 04/30/17 04:00 87 19 94 04/30/17 04:00 97 Room Air 04/30/17 03:01 69 22 141/83 (102) 95 04/30/17 03:01 69 22 141/83 (102) 95 04/30/17 02:01 82 21 119/55 (76) 96 04/30/17 02:01 82 21 119/55 (76) 96 04/30/17 02:00 83 20 94 04/30/17 02:00 83 20 94 04/30/17 00:01 83 21 133/63 (86) 95 04/30/17 00:01 36.8 83 21 133/63 (86) 95 Room Air 04/30/17 00:00 83 19 94 04/29/17 23:59 97 Room Air 04/29/17 23:52 83 96 2.0 04/29/17 22:00 36.7 87 20 134/65 (88) 95 Room Air Physical Exam General Appearance: WD/WN, no apparent distress Respiratory/Chest: chest non-tender, lungs clear, normal breath sounds, no respiratory distress, no accessory muscle use Cardiovascular: regular rate, rhythm, no gallop, no JVD, no murmur, + pertinent finding (bilateral lower extremity edema) Abdomen: + distended Skin: + pertinent finding (erythematous lesion on left lower extremity - beefy red & warm to touch) Laboratory Results 04/30/17 06:07 Red Blood Count 4.74, Mean Corpuscular Volume 83.8, Mean Corpuscular Hemoglobin 27.8, Mean Corpuscular Hemoglobin Concent 33.2, Mean Platelet Volume 11.3, Neutrophils (%) (Auto) 72.5, Lymphocytes (%) (Auto) 5.7, Monocytes (%) (Auto) 18.8, Eosinophils (%) (Auto) 0.1, Basophils (%) (Auto) 0.5, Neutrophils # (Auto ) 7.95, Lymphocytes # (Auto) 0.62, Monocytes # (Auto) 2.06, Eosinophils # (Auto ) 0.01, Basophils # (Auto) 0.05 04/30/17 06:07 Test 04/30/17 06:07 04/30/17 19:20 White Blood Count 10.95 K/uL (4.8-10.8) Red Blood Count 4.74 M/uL (4.7-6.1) Hemoglobin 13.2 g/dL (14.0-18.0) Hematocrit 39.7 % (42-52) Mean Corpuscular Volume 83.8 fL (80-100) Mean Corpuscular Hemoglobin 27.8 pg (25-34) Mean Corpuscular Hemoglobin Concent 33.2 g/dl (32-36) Platelet Count 126 K/uL (130-400) Mean Platelet Volume 11.3 fL (7.4-10.4) Neutrophils (%) (Auto) 72.5 % Lymphocytes (%) (Auto) 5.7 % Monocytes (%) (Auto) 18.8 % Eosinophils (%) (Auto) 0.1 % Basophils (%) (Auto) 0.5 % Neutrophils # (Auto) 7.95 K/uL (1.4-6.5) Lymphocytes # (Auto) 0.62 K/uL (1.2-3.4) Monocytes # (Auto) 2.06 K/uL (0.11-0.59) Eosinophils # (Auto) 0.01 K/uL (0-0.5) Basophils # (Auto) 0.05 K/uL (0-0.2) RDW Standard Deviation 48.1 fL (36.4-46.3) RDW Coefficient of Variation 15.7 % (11.5-14.5) Immature Granulocyte % (Auto) 2.4 % Immature Granulocyte # (Auto) 0.26 K/uL (0.00-0.02) Prothrombin Time 13.2 SECONDS (9.0-12.0) Prothromb Time International Ratio 1.2 (0.9-1.1) Activated Partial Thromboplast Time 36.3 SECONDS (21.0-31.0) Partial Thromboplastin Ratio 1.4 Anion Gap 9.0 mmol/L (3-11) Est Creatinine Clear Calc Drug Dose 38.8 ml/min Estimated GFR () 29.5 Estimated GFR (Non- 25.4 BUN/Creatinine Ratio 21.9 (10-20) Calcium Level 8.6 mg/dl (8.5-10.1) Phosphorus Level 3.9 mg/dl (2.5-4.9) Magnesium Level 2.6 mg/dl (1.8-2.4) Total Bilirubin 0.6 mg/dl (0.2-1) Direct Bilirubin 0.3 mg/dl (0-0.2) Aspartate Amino Transf (AST/SGOT) 14 U/L (15-37) Alanine Aminotransferase (ALT/SGPT) 23 U/L (12-78) Alkaline Phosphatase 73 U/L (45-117) Total Protein 6.4 gm/dl (6.4-8.2) Albumin 2.3 gm/dl (3.4-5.0) Bedside Glucose 100 mg/dl (70-99) Assessment and Plan 66 year old male presented with fever and hypotension - diagnosed with sepsis secondary to cellulitis. Sepsis secondary to left lower extremity cellulitis - BCx positive for group B streptococci - treating with 2g Rocephin daily as per Dr. 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
[2017-05-01] VITALS (32 sets, daily range): BP systolic 92–143; BP diastolic 41–90; PULSE 44–84; TEMP 36.6–37.2; O2SAT 87–97
[2017-05-01] MEDS: OXYCODONE/ACETAMINOPHEN 10/325MG TAB PO PRN ×4 (03:21→18:03)
[2017-05-01] MEDS: NORMOSOL R 1,000 ML IV SCH ×3 (03:22→23:26)
[2017-05-01] MEDS: HEPARIN SOD 5000 UNIT/0.5 ML CARP SQ SCH ×3 (05:43→21:25)
[2017-05-01] MEDS: METOCLOPRAMIDE HCL INJ 5 MG/ML 2 ML VIAL IV. SCH ×4 (05:44→23:25)
[2017-05-01] MEDS: LEVOTHYROXINE 25 MCG TAB PO SCH (05:44)
[2017-05-01 06:18] LABS: HEMATOCRIT 39.9 % (42-52); MEAN CELL VOLUME 84.4 fL (80-100); MEAN CORPUSCULAR HEMOGLOBIN 27.9 pg (25-34); MEAN CORPUSCULAR HGB CONC 33.1 g/dl (32-36); MEAN PLATELET VOLUME 12.1 fL (7.4-10.4); PLATELET COUNT 151 K/uL (130-400); RED BLOOD COUNT 4.73 M/uL (4.7-6.1); WHITE BLOOD COUNT 6.94 K/uL (4.8-10.8)
[2017-05-01 06:29] LABS: INR 1.4 (0.9-1.1); PARTIAL THROMBOPLASTIN RATIO 1.3; PROTHROMBIN TIME (PATIENT) 15.3 SECONDS (9.0-12.0)
[2017-05-01 06:54] LABS: CALCIUM 8.5 mg/dl (8.5-10.1); CREATININE 2.9 mg/dl (0.60-1.40); MAGNESIUM 2.8 mg/dl (1.8-2.4); PHOSPHORUS 3.9 mg/dl (2.5-4.9); POTASSIUM 2.8 mmol/L (3.5-5.1)
[2017-05-01 07:13] LABS: COMPLETE YES; DOHLE BODIES 1+; EOSINOPHIL % 1.7 %; LYMPH ABS # 1.09 K/uL (1.2-3.4); LYMPHOCYTE % 15.7 %; MYELOCYTE % 1.7 %; NEUTROPHILS % 45.2 %
[2017-05-01] MEDS ORDERED: NURSING VERBAL MED ORDER ONE (07:30)
[2017-05-01] MEDS: POTASSIUM CHLR 20MEQ / WTR IV SCH ×4 (08:08→13:51)
[2017-05-01] MEDS: ASCORBIC ACID 500 MG TAB PO SCH (08:09)
[2017-05-01] MEDS: CHOLECALCIFEROL 1000 INTER.UNIT TAB PO SCH (08:09)
[2017-05-01] MEDS: RANITIDINE HCL 150 MG TAB PO SCH (08:09)
[2017-05-01] MEDS: CEROVITE ADV FORMULA TAB PO SCH (08:09)
[2017-05-01] MEDS: PREGABALIN 100 MG CAP PO SCH ×3 (08:11→21:23)
--- NOTE | 2017-05-01 13:32 | Wound Clinic H&P ---
History & Physical Wound Clinic Date of Service: Apr 30, 2017. Complaint: Cellulitis left lower extremity with ulceration. Primary Care Physician: Carlo Willingham M.D. History of Present Illness Patient was recently admitted 4 days ago for evaluation of cellulitis of the left lower extremity with associated sepsis. Today patient denies any pain in the left lower extremity. Patient denies any recent fever chills or night sweats. Patient has had some difficulty with abdominal discomfort nausea and vomiting. Patient states he has had a prior history of infection in this left leg approximately 2 years prior. Patient denies any other new systemic complaints at this time. 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 R knee arthroscopy.) Social History Occupation: retired Smoking Status: Former Smoker Smokeless Tobacco Use: No Current Medications Scheduled Aspirin (Aspirin Ec), 81 MG PO QPM B-Complex Vitamins (Vitamin B Complex), 1 TAB PO QAM Biotin (Biotin), 1 CAP PO DAILY Cholecalciferol (Vitamin D 1000 Unit), 1,000 INTER.UNIT PO QAM Colchicine (Colchicine), 0.3 MG PO HS Levothyroxine Sodium (Synthroid), 25 MCG PO QAM Lisinopril (Lisinopril), 20 MG PO QAM Montelukast Sodium (Singulair), 10 MG PO HS Multivitamins/Minerals (Mvi With Minerals), 1 TAB PO DAILY Naproxen (Aleve), 440 MG PO DAILY Nizatidine (Nizatidine), 150 MG PO HS Pregabalin (Lyrica), 200 MG PO TID Sildenafil Citrate (Viagra), 50 MG PO PRN Scheduled PRN Oxycodone/Acetaminophen 10MG/325MG (Percocet 10MG/325MG), 1 TAB PO TID PRN for Pain Allergies Coded Allergies: Tetracycline (Verified Allergy, Unknown, SORES IN MOUTH, 04/26/17) Review of Systems 10 systems were reviewed in their entirety and positive findings were noted in HPI. Physical Exam Vital Signs: Last Vital Signs Documentation Date Time Temp Pulse Resp B/P (MAP) Pulse Ox O2 Delivery O2 Flow Rate FiO2 05/01/17 12:00 94 Nasal Cannula 2.0 05/01/17 12:00 78 17 05/01/17 11:01 36.9 122/52 (75) 04/29/17 15:40 21 Current Pain Level: 10.0 General: The patient is lying in a hospital bed in no distress. Alert, cooperative and appropriate to all questions. HEENT: Pupils equal and reactive to light. Sclera clear, EOM intact. Neck: Supple, No JVD noted Chest: CTA in all ha. No deformity Heart: RRR without murmurs, S3, S4, thrills, rubs or heaves Extremities: Significant peripheral edema is noted to the left lower extremity with associated erythema measuring 30-46-1/2 cm. There is some scattered anterior superficial ulcerations with clear drainage present. There is no odor noted. No significant pain to palpation is present. ABIs of the left lower extremity was 0.8. Distal neurovascular bundles intact. Neurological: Alert and oriented x3. No focal deficits. Skin: No rashes, papules, vesicles, excoriations Assessment 1.: cellulitis left lower extremity with associated superficial ulcerations Plan At this time no debridement is indicated the extremity will be managed with Aquasol AG gauze dressings followed by a co-band light compression wraps. Wrap be reevaluated tomorrow and maintained if tolerated. Patient will continue to be evaluated during his hospital course in the outpatient environment is as indicated.
--- NOTE | 2017-05-01 15:12 | DIAGNOSTIC IMAGING REPORT ---
ABD/PELVIS NO IV OR ORAL CONT HISTORY: 66 years-old Male R/o ileus. Drained 8 liters via NGT acute abdominal distention. History of prior right hemicolectomy. COMPARISON: CT abdomen and pelvis 04/26/2017 and 08/29/2015 TECHNIQUE: Multiple axial CT images of the abdomen and pelvis were obtained down views of contrast. A dose lowering technique was used consistent with the principals of KATIE. FINDINGS: The imaged lung bases demonstrate minimal subsegmental bibasilar atelectasis. Coronary arterial calcifications are noted as well as calcifications of the aortic annulus. There is no pneumoperitoneum. Liver is enlarged with diffuse fatty infiltration. The spleen, gallbladder and left adrenal gland are within normal limits there is moderate diffuse pancreatic atrophy. 1.7 x 1.1 cm soft tissue attenuating nodule of the right adrenal gland is nonspecific, unchanged from 08/29/2015 suggesting benign etiology such as a lipid poor adenoma. 2.0 x 1.3 cm slightly exophytic soft tissue attenuating mass of the posterior interpolar left kidney is again seen, suspicious for neoplasm. Moderate perinephric inflammatory stranding is again seen bilaterally. There is a nonobstructing calculus of the inferior pole left kidney measuring 9 x 7 mm. There is no hydronephrosis. The urinary bladder is collapsed and air filled with wall thickening and surrounding inflammatory stranding with Rodriguez catheter in place. There is moderate amount of left scrotal plaquing involving the aorta. Scattered retroperitoneal lymph nodes are again seen which are nonspecific measuring up to 11 x 14 mm. Enteric tube is seen within the gastric lumen with a mild amount of fluid within the gastric lumen. There are several moderately dilated loops of small bowel throughout the abdomen with air-fluid level layering measuring up to 4.0 cm. Tapered angular loop of small bowel seen within the right lower abdomen on image 69 of the axial series suggesting transition point with distal collapsed small bowel loops. Scattered noninflamed diverticula are seen throughout the colon. There is moderate amount of mesenteric edema and ascites which tracks along the paracolic gutters, likely reactive. Postsurgical changes are seen consistent with prior right hemicolectomy. Patient obesity is noted. Diastases recti is noted. Multilevel degenerative changes are seen involving the spine. IMPRESSION: 1. Findings compatible with high-grade partial small bowel obstruction with transition point within the right lower abdomen as above, likely secondary to underlying bowel adhesions. Moderate amount of reactive mesenteric edema and ascites is present which tracks along the pericolic gutters. 2. No pneumatosis or pneumoperitoneum. 3. Hepatomegaly with hepatosteatosis. 4. Prior right hemicolectomy. 5. Left-sided nephrolithiasis. 6. Soft tissue attenuating mass of the interpolar left kidney is again seen, suspicious for renal cell carcinoma. The above report was generated using voice recognition software. It may contain grammatical, syntax or spelling errors. Electronically signed by: Casimiro Marcano M.D. 05/01/2017 3:11 PM Dictated Date/Time: 05/01/2017 2:42 PM
--- NOTE | 2017-05-01 15:22 | Infectious Disease Progress Nt ---
Progress Note Date of Service May 01, 2017. Subjective Pt evaluation today including: conversation w/ patient, conversation w/ family , physical exam, chart review, lab review, review of studies, conversation w/ access consultant, review of inpatient medication list Patient complaining of abdominal pain and distension. NG tube in place. CT scan of the abdomen pending. Left leg pain much improved, no other new complaints. All Other Systems: Reviewed and Negative Medications Current Inpatient Medications Medications (Trade) Dose Ordered Sig/Delonte Route Start Time Stop Time Status Last Admin Dose Admin Aspirin (Ecotrin Tab) 81 mg QPM PO 04/27/17 21:00 05/27/17 20:59 04/30/17 21:31 81 MG Cholecalciferol (Vitamin D Tab) 1,000 inter.unit QAM PO 04/27/17 09:00 05/27/17 08:59 05/01/17 08:09 1,000 INTER.UNIT Levothyroxine Sodium (Synthroid Tab) 25 mcg DAILYBB PO 04/27/17 06:00 05/27/17 05:59 05/01/17 05:44 25 MCG Montelukast Sodium (Singulair Tab) 10 mg HS PO 04/27/17 21:00 05/27/17 20:59 04/30/17 21:31 10 MG Multivitamins/ Minerals (Multivitamin W/ Minerals Tab) 1 tab DAILY PO 04/27/17 09:00 05/27/17 08:59 05/01/17 08:09 1 TAB Heparin Sodium (Porcine) (Heparin Sq 5000 Unit/0.5ml) 5,000 unit Q8 SQ 04/27/17 06:00 05/27/17 05:59 05/01/17 14:57 5,000 UNIT Ascorbic Acid (Vitamin C Tab) 1,000 mg QAM PO 04/27/17 09:00 05/27/17 08:59 05/01/17 08:09 1,000 MG Heparin Sodium (Porcine) (Heparin 10 Unit/ ml 5 ml Flush) 5 ml PRN PRN FLUSH 04/28/17 01:30 05/28/17 01:29 04/29/17 10:38 5 ML Ranitidine HCl (zANTac TAB) 150 mg QAM PO 04/29/17 09:00 05/29/17 08:59 05/01/17 08:09 150 MG Pregabalin (Lyrica Cap) 100 mg TID PO 04/28/17 14:00 05/28/17 13:59 05/01/17 13:48 100 MG Acetaminophen (Tylenol Tab) 650 mg TID PRN PO 04/29/17 21:00 05/29/17 08:59 Oxycodone/ Acetaminophen (Percocet 10-325MG Tab) 1 tab Q4 PRN PO 04/29/17 20:00 05/10/17 22:59 05/01/17 13:48 1 TAB Ondansetron HCl (Zofran Odt) 4 mg Q8H PRN PO 04/30/17 08:45 05/30/17 08:44 Parenteral Electrolyte Solution 1,000 ml @ 100 mls/hr Q10H IV 04/30/17 11:30 05/30/17 11:29 05/01/17 14:56 100 MLS/HR Metoclopramide HCl (Reglan Inj) 10 mg Q6 IV. 04/30/17 12:30 05/30/17 12:29 05/01/17 12:32 10 MG Ceftriaxone Sodium 2000 mg/ Dextrose 70 ml @ 100 mls/hr Q24H IV 04/30/17 18:00 05/14/17 17:59 04/30/17 18:01 100 MLS/HR Potassium Chloride 20 meq/ Prmx 100 ml @ 100 mls/hr TODAY@0800,0900,1000,1100 IV 05/01/17 08:00 05/01/17 16:00 05/01/17 13:51 100 MLS/HR Objective Vital Signs Date Time Temp Pulse Resp B/P (MAP) Pulse Ox O2 Delivery O2 Flow Rate FiO2 05/01/17 12:00 94 Nasal Cannula 2.0 05/01/17 12:00 78 17 05/01/17 11:01 36.9 73 21 122/52 (75) 95 Nasal Cannula 2.0 05/01/17 11:00 71 16 94 05/01/17 10:01 72 23 110/63 (79) 95 Nasal Cannula 2.0 05/01/17 10:00 84 18 95 05/01/17 09:01 71 22 122/90 (101) 94 05/01/17 09:00 77 17 87 05/01/17 08:01 74 16 115/61 (79) 05/01/17 08:00 Nasal Cannula 05/01/17 08:00 74 21 94 05/01/17 07:30 94 Nasal Cannula 2.0 05/01/17 07:01 36.8 72 19 123/66 (85) 95 Nasal Cannula 2.0 05/01/17 07:00 73 18 95 05/01/17 06:00 36.9 79 15 118/57 (77) 93 Nasal Cannula 2.0 05/01/17 04:00 95 Nasal Cannula 2.0 05/01/17 04:00 37.1 80 18 128/58 (81) 95 Nasal Cannula 2.0 05/01/17 02:00 37.0 72 18 129/59 (82) 92 Nasal Cannula 2.0 05/01/17 00:00 37.2 79 19 125/54 (77) 92 Nasal Cannula 2.0 05/01/17 00:00 92 Nasal Cannula 2.0 04/30/17 22:00 83 17 136/63 (87) 96 Nasal Cannula 2.0 04/30/17 20:00 37.0 87 18 137/55 (82) 97 Nasal Cannula 2.0 04/30/17 20:00 97 Nasal Cannula 2.0 04/30/17 19:00 89 13 133/67 (89) 97 Nasal Cannula 2.0 04/30/17 15:21 95 Room Air Physical Exam General Appearance: WD/WN, + mild distress Eyes: normal inspection, EOMI, sclerae normal ENT: normal ENT inspection, hearing grossly normal, pharynx normal Neck: no adenopathy, thyroid normal, trachea midline Respiratory/Chest: chest non-tender, lungs clear, normal breath sounds, no respiratory distress Cardiovascular: regular rate, rhythm, no gallop, no murmur Abdomen: normal bowel sounds, no organomegaly, + distended, + tenderness Extremities: + inflammation ( left leg), + swelling ( left leg) Neurologic/Psychiatric: alert, oriented x 3 Skin: no rash, + pertinent finding ( left leg cellulitis slightly better with no progression of erythema, leg slightly less swollen) Laboratory Results Last 24 Hours Test 04/30/17 19:20 05/01/17 05:49 05/01/17 11:55 Bedside Glucose 100 mg/dl 107 mg/dl White Blood Count 6.94 K/uL Red Blood Count 4.73 M/uL Hemoglobin 13.2 g/dL Hematocrit 39.9 % Mean Corpuscular Volume 84.4 fL Mean Corpuscular Hemoglobin 27.9 pg Mean Corpuscular Hemoglobin Concent 33.1 g/dl Platelet Count 151 K/uL Mean Platelet Volume 12.1 fL RDW Standard Deviation 47.9 fL RDW Coefficient of Variation 15.6 % Neutrophils % (Manual) 45.2 % Lymphocytes % (Manual) 15.7 % Monocytes % (Manual) 35.7 % Eosinophils % (Manual) 1.7 % Myelocytes % 1.7 % Neutrophils # (Manual) 3.14 K/uL Total Absolute Neutrophils 3.14 K/uL Lymphocytes # (Manual) 1.09 K/uL Total Absolute Lymphocytes 1.09 K/uL Monocytes # (Manual) 2.48 K/uL Eosinophils # (Manual) 0.12 K/uL Myelocytes # 0.12 K/uL Dohle Bodies 1+ Prothrombin Time 15.3 SECONDS Prothromb Time International Ratio 1.4 Activated Partial Thromboplast Time 32.9 SECONDS Partial Thromboplastin Ratio 1.3 Sodium Level 143 mmol/L Potassium Level 2.8 mmol/L Chloride Level 108 mmol/L Carbon Dioxide Level 27 mmol/L Anion Gap 8.0 mmol/L Blood Urea Nitrogen 58 mg/dl Creatinine 2.90 mg/dl Est Creatinine Clear Calc Drug Dose 32.7 ml/min Estimated GFR () 24.6 Estimated GFR (Non- 21.3 BUN/Creatinine Ratio 20.0 Random Glucose 92 mg/dl Calcium Level 8.5 mg/dl Phosphorus Level 3.9 mg/dl Magnesium Level 2.8 mg/dl Total Bilirubin 0.6 mg/dl Direct Bilirubin 0.3 mg/dl Aspartate Amino Transf (AST/SGOT) 13 U/L Alanine Aminotransferase (ALT/SGPT) 19 U/L Alkaline Phosphatase 59 U/L Total Protein 5.9 gm/dl Albumin 2.2 gm/dl Assessment and Plan (1) Hypothyroidism (2) Obesity (3) Hypertension (4) Acid reflux (5) Septic shock (6) Hypotension (7) Neuropathy Status: Chronic (8) Left leg cellulitis Status: Acute (9) Sleep apnea 58-year-old male with acute group B streptococcal sepsis with left lower extremity cellulitis and acute kidney injury. As discussed, patient has been changed to IV ceftriaxone 2 grams daily, and likely will require in the range of 10 days of IV antibiotics. await results from CT scan. We will continue to follow.
[2017-05-01] MEDS: CEFTRIAXONE SOD INJ 2,000 MG in DEXTROSE 5% 50ML 50 ML IV SCH (17:05)
[2017-05-01 17:45] LABS: BUN/CREATININE RATIO 19.8 (10-20); CALCIUM 8.7 mg/dl (8.5-10.1); CREATININE 3.2 mg/dl (0.60-1.40); POTASSIUM 4.1 mmol/L (3.5-5.1)
--- NOTE | 2017-05-01 17:50 | Family Medicine Progress Note ---
Progress Note Date of Service May 01, 2017. Subjective Pt evaluation today including: conversation w/ patient, conversation w/ family , physical exam, chart review, lab review, conversation w/ it web development consultant, review of inpatient medication list Pain: 5/10 left leg pain PO Intake: NPO Voiding: goode catheter in place Mr. Camacho reports that his left leg is still painful, about a 5/10 in severity, but that his right leg is no longer sore. He also expresses frustration at not being able to eat, and reports that he is hungry and is able to pass flatus. Otherwise, he denies chest pain, shortness of breath or palpitations. Constitutional: No fever, No chills, No sweats Respiratory: No cough, No sputum, No wheezing, No shortness of breath Cardiovascular: No chest pain, No orthopnea, No PND Abdomen: No pain, No nausea, No vomiting, No diarrhea All Other Systems: Reviewed and Negative Medications Current Inpatient Medications Medications (Trade) Dose Ordered Sig/Delonte Route Start Time Stop Time Status Last Admin Dose Admin Aspirin (Ecotrin Tab) 81 mg QPM PO 04/27/17 21:00 05/27/17 20:59 04/30/17 21:31 81 MG Cholecalciferol (Vitamin D Tab) 1,000 inter.unit QAM PO 04/27/17 09:00 05/27/17 08:59 05/01/17 08:09 1,000 INTER.UNIT Levothyroxine Sodium (Synthroid Tab) 25 mcg DAILYBB PO 04/27/17 06:00 05/27/17 05:59 05/01/17 05:44 25 MCG Montelukast Sodium (Singulair Tab) 10 mg HS PO 04/27/17 21:00 05/27/17 20:59 04/30/17 21:31 10 MG Multivitamins/ Minerals (Multivitamin W/ Minerals Tab) 1 tab DAILY PO 04/27/17 09:00 05/27/17 08:59 05/01/17 08:09 1 TAB Heparin Sodium (Porcine) (Heparin Sq 5000 Unit/0.5ml) 5,000 unit Q8 SQ 04/27/17 06:00 05/27/17 05:59 05/01/17 14:57 5,000 UNIT Ascorbic Acid (Vitamin C Tab) 1,000 mg QAM PO 04/27/17 09:00 8/23/17 08:59 05/01/17 08:09 1,000 MG Heparin Sodium (Porcine) (Heparin 10 Unit/ ml 5 ml Flush) 5 ml PRN PRN FLUSH 04/28/17 01:30 05/28/17 01:29 04/29/17 10:38 5 ML Ranitidine HCl (zANTac TAB) 150 mg QAM PO 04/29/17 09:00 05/29/17 08:59 05/01/17 08:09 150 MG Pregabalin (Lyrica Cap) 100 mg TID PO 04/28/17 14:00 05/28/17 13:59 05/01/17 13:48 100 MG Acetaminophen (Tylenol Tab) 650 mg TID PRN PO 04/29/17 21:00 05/29/17 08:59 Oxycodone/ Acetaminophen (Percocet 10-325MG Tab) 1 tab Q4 PRN PO 04/29/17 20:00 05/10/17 22:59 05/01/17 13:48 1 TAB Ondansetron HCl (Zofran Odt) 4 mg Q8H PRN PO 04/30/17 08:45 05/30/17 08:44 Parenteral Electrolyte Solution 1,000 ml @ 100 mls/hr Q10H IV 04/30/17 11:30 05/30/17 11:29 05/01/17 14:56 100 MLS/HR Metoclopramide HCl (Reglan Inj) 10 mg Q6 IV. 04/30/17 12:30 05/30/17 12:29 05/01/17 12:32 10 MG Ceftriaxone Sodium 2000 mg/ Dextrose 70 ml @ 100 mls/hr Q24H IV 04/30/17 18:00 05/14/17 17:59 04/30/17 18:01 100 MLS/HR Objective Vital Signs Date Time Temp Pulse Resp B/P (MAP) Pulse Ox O2 Delivery O2 Flow Rate FiO2 05/01/17 16:01 36.8 68 17 124/60 (81) 95 Nasal Cannula 2.0 05/01/17 16:00 50 23 94 05/01/17 15:30 93 Nasal Cannula 2.0 05/01/17 15:01 64 27 123/69 (87) 90 05/01/17 15:00 68 15 88 05/01/17 14:41 75 19 92/62 (72) 92 05/01/17 14:01 73 19 123/43 (69) 96 Nasal Cannula 2.0 05/01/17 14:00 75 21 96 05/01/17 13:01 73 25 114/41 (65) 97 05/01/17 13:00 68 15 95 05/01/17 12:00 94 Nasal Cannula 2.0 05/01/17 12:00 78 17 05/01/17 11:01 36.9 73 21 122/52 (75) 95 Nasal Cannula 2.0 05/01/17 11:00 71 16 94 05/01/17 10:01 72 23 110/63 (79) 95 Nasal Cannula 2.0 05/01/17 10:00 84 18 95 05/01/17 09:01 71 22 122/90 (101) 94 05/01/17 09:00 77 17 87 05/01/17 08:01 74 16 115/61 (79) 05/01/17 08:00 Nasal Cannula 05/01/17 08:00 74 21 94 05/01/17 07:30 94 Nasal Cannula 2.0 05/01/17 07:01 36.8 72 19 123/66 (85) 95 Nasal Cannula 2.0 05/01/17 07:00 73 18 95 05/01/17 06:00 36.9 79 15 118/57 (77) 93 Nasal Cannula 2.0 05/01/17 04:00 95 Nasal Cannula 2.0 05/01/17 04:00 37.1 80 18 128/58 (81) 95 Nasal Cannula 2.0 05/01/17 02:00 37.0 72 18 129/59 (82) 92 Nasal Cannula 2.0 05/01/17 00:00 37.2 79 19 125/54 (77) 92 Nasal Cannula 2.0 05/01/17 00:00 92 Nasal Cannula 2.0 04/30/17 22:00 83 17 136/63 (87) 96 Nasal Cannula 2.0 04/30/17 20:00 37.0 87 18 137/55 (82) 97 Nasal Cannula 2.0 04/30/17 20:00 97 Nasal Cannula 2.0 04/30/17 19:00 89 13 133/67 (89) 97 Nasal Cannula 2.0 Physical Exam General Appearance: WD/WN, no apparent distress ENT: + pertinent finding (NG tube in place) Respiratory/Chest: chest non-tender, lungs clear, normal breath sounds, no respiratory distress, no accessory muscle use Cardiovascular: regular rate, rhythm, no gallop, no JVD, no murmur Abdomen: no organomegaly, no pulsatile mass, + distended, + tenderness Skin: + pertinent finding (left leg wrapped in bandages) Laboratory Results 05/01/17 05:49 Red Blood Count 4.73, Mean Corpuscular Volume 84.4, Mean Corpuscular Hemoglobin 27.9, Mean Corpuscular Hemoglobin Concent 33.1, Mean Platelet Volume 12.1 Test 05/01/17 05:49 05/01/17 11:55 05/01/17 17:03 White Blood Count 6.94 K/uL (4.8-10.8) Red Blood Count 4.73 M/uL (4.7-6.1) Hemoglobin 13.2 g/dL (14.0-18.0) Hematocrit 39.9 % (42-52) Mean Corpuscular Volume 84.4 fL (80-100) Mean Corpuscular Hemoglobin 27.9 pg (25-34) Mean Corpuscular Hemoglobin Concent 33.1 g/dl (32-36) Platelet Count 151 K/uL (130-400) Mean Platelet Volume 12.1 fL (7.4-10.4) RDW Standard Deviation 47.9 fL (36.4-46.3) RDW Coefficient of Variation 15.6 % (11.5-14.5) Neutrophils % (Manual) 45.2 % Lymphocytes % (Manual) 15.7 % Monocytes % (Manual) 35.7 % Eosinophils % (Manual) 1.7 % Myelocytes % 1.7 % Neutrophils # (Manual) 3.14 K/uL (1.4-6.5) Total Absolute Neutrophils 3.14 K/uL (1.4-6.5) Lymphocytes # (Manual) 1.09 K/uL (1.2-3.4) Total Absolute Lymphocytes 1.09 K/uL (1.2-3.4) Monocytes # (Manual) 2.48 K/uL (0.11-0.59) Eosinophils # (Manual) 0.12 K/uL (0-0.5) Myelocytes # 0.12 K/uL (0-0) Dohle Bodies 1+ Prothrombin Time 15.3 SECONDS (9.0-12.0) Prothromb Time International Ratio 1.4 (0.9-1.1) Activated Partial Thromboplast Time 32.9 SECONDS (21.0-31.0) Partial Thromboplastin Ratio 1.3 Est Creatinine Clear Calc Drug Dose 32.7 ml/min Phosphorus Level 3.9 mg/dl (2.5-4.9) Magnesium Level 2.8 mg/dl (1.8-2.4) Total Bilirubin 0.6 mg/dl (0.2-1) Direct Bilirubin 0.3 mg/dl (0-0.2) Aspartate Amino Transf (AST/SGOT) 13 U/L (15-37) Alanine Aminotransferase (ALT/SGPT) 19 U/L (12-78) Alkaline Phosphatase 59 U/L (45-117) Total Protein 5.9 gm/dl (6.4-8.2) Albumin 2.2 gm/dl (3.4-5.0) Bedside Glucose 107 mg/dl (70-99) Assessment and Plan 66 year old male presented with fever and hypotension - diagnosed with sepsis secondary to cellulitis. Sepsis secondary to left lower extremity cellulitis - BCx positive for group B streptococci - treating with 2g Rocephin daily - will likely need 10 days of abx - cellulitis improving clinically - has not spread beyond line drawn yesterday - WBC decreased to 6.94 from 10.95 - Pain control with Percocet and morphine as needed Bowel obstruction - made NPO and NG tube placed yesterday - continues with NPO & NG tube - put out ~7L in NG tube total - abdominal pain and distention improving - repeat CT showed - high-grade partial small bowel obstruction with transition point within the right lower abdomen, likely secondary to underlying bowel adhesions History of several bacteremias/sepsis including meningitis, pneumonia, cellulitis: - Suspect any underlying complement/ immunoglobulin deficiency - Recommend outpatient workup Acute kidney injury: - Cr at 2.9 from 1.7 on admission - likely secondary to septic shock & subsequent bowel obstruction - will monitor Renal mass on CT: - stable since 2014, followed by urology Right adrenal gland nodule: - 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 Discussed with Dr. Aburto and agree with findings and plan as documented in the note. Any exceptions or clarifications are listed here: None Documented By: Humberto Ramirez feeling hungry, having some flatus, still large volume NGT outpt. CT ordered. d/w ICU team extensively. leg looking better vitals noted nad large output from NGT. abdomen less distended than yesterday. breathing unlabored. erythema LLE receding strep sepsis/bacteremia from LLE cellulitis - improving ileus-->> SBO - clinically seemed to be ileus- but CT showed is probably adhesional SBO so more coincidental than cause/effect w sepsis. NGT, supportive care. no impending perforation or other worry s/s so hopefully conservative care and will resolve. may need surgical eval. continue NGT / NPO , hungry and flatus reassuring signs ARF - initialy due to hypoperfusion from sepsis, now likely compounded by high NGT outpt w SBO. ongoing IVF. nephrology eval certainly reasonable at this time Resident Tracking Resident Involvement: Resident Care Provided Care Provided: Adult Hospital Medicine
[2017-05-01] MEDS: ASPIRIN 81 MG ECTAB PO SCH (21:23)
[2017-05-01] MEDS: MONTELUKAST SOD 10 MG TAB PO SCH (21:23)
--- NOTE | 2017-05-01 22:55 | Critical Care Progress Note ---
Critical Care Progress Note Date of Service May 01, 2017. Attending Dr. Ortiz Subjective Still with significant drainage from NGT Had 3 somewhat formed bowel movements Leg wrap changed today, leg is less swollen, minimal weeping Objective Gen: No acute distress. Pt is obese. HEENT: Head - normocephalic and atraumatic. Pupils are equal, round, and reactive to light. Extraocular eye muscles are intact and sclera are anicteric. Ears - bilaterally patent canals with noninjected tympanic membranes and no evidence of hemotympanum. Nose - moist nasal mucosa without discharge. Mouth - moist buccal mucosa. Oropharynx is nonerythematous and there is no tonsillar exudate or edema noted. Neck: Supple; no JVD, nuchal rigidity, cervical lymphadenopathy, or auscultated bruits. Heart: Regular rate and rhythm. There is a normal S1 and S2 with no murmurs, clicks, or gallops appreciated. Lungs: Clear to auscultation bilaterally with no wheezes, rales, or rhonchi. Abdomen: Soft, completely nontender, distended, present sounds. There are no palpable pulsatile masses or hepatosplenomegaly. There is no guarding, rigidity , or rebound noted. Extremities:Left extremity: Area of indurated erythema over the anterior, medial and lateral aspect of left leg. 2+ pitting edema. Pt has noticeable decreased ROM in the left leg (chronic) of unknown etiology. Distal pulses 2+ bilaterally. 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 1.5cm clean laceration at bottom of left foot, no signs of infection or inflammation. Marker outline applied to left leg erythema border at approx 11am on 04/27/17 and a smaller area was outline on 04/28/17. Worsening induration on 04/29/17. Erythema and weeping has improved from 04/29/17. Improving clinical presentation. Leg does not bother pt, pt states the leg is pain free although he does have a history of neuropathy. Pt has edematous upper and lower extremities. RLE: non edematous, no skin changes. FROM. Neuro:The patient is awake and alert, oriented to day, time, and place. There are no cerebellar signs. Ct abdomen/pelvis today: 1. Findings compatible with high-grade partial small bowel obstruction with transition point within the right lower abdomen as above, likely secondary to underlying bowel adhesions. Moderate amount of reactive mesenteric edema and ascites is present which tracks along the pericolic gutters. 2. No pneumatosis or pneumoperitoneum. 3. Hepatomegaly with hepatosteatosis. 4. Prior right hemicolectomy. 5. Left-sided nephrolithiasis. 6. Soft tissue attenuating mass of the interpolar left kidney is again seen, suspicious for renal cell carcinoma. Current SOFA Score SOFA Score Response (Comments) Value Platelets (x10) > 150 0 Bilirubin (mg/dL) < 1.2 0 Mikala Coma Score 15 0 Level of Hypotension No Hypotension 0 Creatinine (mg/dL) 2.0 - 3.4 2 Total 2 Assessment & Plan Patient with septic shock secondary to Streptococcus bacteremia, likely secondary to LLE cellulitis - Resolved JERRY Ileus vs obstruction GUS H/o hemicolectomy secondary to bleeding Sepsis/cellulitis - Off pressors. Blood Cx growing group B streptococcus, repeat cultures negative Continue on Rocephin for now, 2 gm daily Continue wrapping the leg Elevate leg Ileus - Since insertion he had approximately 8 liters of fluid suctioned from the NGT Continue Reglan NPO CT abdomen suggestive of actual obstruction. However, he still has bowel movements, so he may have a partial obstruction, or just an ileus. No need for immediate surgical intervention. Will ask for surgical input if there is no improvement JERRY - creatinine plateaued today, good urine output Likely contrast induced nephropathy. FeNa is 0.1% which also goes along with SARAH. Continue hydration, increase Normosol to 100 ml/hr Creatinine still worsening, nephrology evaluation at this point Significant hypokalemia secondary to GI losses, replenished aggressively today, improved GUS - unable to use CPAP while NGT is in place Documented By: Paulino Ortiz MD Consults & Procedures Consultants: Heme/Onc - Dr. Finch (signed off) Infection Disease Consult - 04/29/17 Wound Care Nurse - 04/29/17 Procedures: NA Data Medications: Current Inpatient Medications Medications (Trade) Dose Ordered Sig/[place]onte Route Start Time Stop Time Status Last Admin Dose Admin Aspirin (Ecotrin Tab) 81 mg QPM PO 04/27/17 21:00 05/27/17 20:59 05/01/17 21:23 81 MG Cholecalciferol (Vitamin D Tab) 1,000 inter.unit QAM PO 04/27/17 09:00 05/27/17 08:59 05/01/17 08:09 1,000 INTER.UNIT Levothyroxine Sodium (Synthroid Tab) 25 mcg DAILYBB PO 04/27/17 06:00 05/27/17 05:59 05/01/17 05:44 25 MCG Montelukast Sodium (Singulair Tab) 10 mg HS PO 04/27/17 21:00 05/27/17 20:59 05/01/17 21:23 10 MG Multivitamins/ Minerals (Multivitamin W/ Minerals Tab) 1 tab DAILY PO 04/27/17 09:00 05/27/17 08:59 05/01/17 08:09 1 TAB Heparin Sodium (Porcine) (Heparin Sq 5000 Unit/0.5ml) 5,000 unit Q8 SQ 04/27/17 06:00 05/27/17 05:59 05/01/17 21:25 5,000 UNIT Ascorbic Acid (Vitamin C Tab) 1,000 mg QAM PO 04/27/17 09:00 05/27/17 08:59 05/01/17 08:09 1,000 MG Heparin Sodium (Porcine) (Heparin 10 Unit/ ml 5 ml Flush) 5 ml PRN PRN FLUSH 04/28/17 01:30 05/28/17 01:29 04/29/17 10:38 5 ML Ranitidine HCl (zANTac TAB) 150 mg QAM PO 04/29/17 09:00 05/29/17 08:59 05/01/17 08:09 150 MG Pregabalin (Lyrica Cap) 100 mg TID PO 04/28/17 14:00 05/28/17 13:59 05/01/17 21:23 100 MG Acetaminophen (Tylenol Tab) 650 mg TID PRN PO 04/29/17 21:00 05/29/17 08:59 Oxycodone/ Acetaminophen (Percocet 10-325MG Tab) 1 tab Q4 PRN PO 04/29/17 20:00 05/10/17 22:59 05/01/17 18:03 1 TAB Ondansetron HCl (Zofran Odt) 4 mg Q8H PRN PO 04/30/17 08:45 05/30/17 08:44 Parenteral Electrolyte Solution 1,000 ml @ 100 mls/hr Q10H IV 04/30/17 11:30 05/30/17 11:29 05/01/17 14:56 100 MLS/HR Metoclopramide HCl (Reglan Inj) 10 mg Q6 IV. 04/30/17 12:30 05/30/17 12:29 05/01/17 17:05 10 MG Ceftriaxone Sodium 2000 mg/ Dextrose 70 ml @ 100 mls/hr Q24H IV 04/30/17 18:00 05/14/17 17:59 05/01/17 17:05 100 MLS/HR I & O: 24-Hour Column 05/02/17 08:00 Intake Total 1829 ml Output Total 1750 ml Balance 79 ml Vital Signs: Date Time Temp Pulse Resp B/P (MAP) Pulse Ox O2 Delivery O2 Flow Rate FiO2 05/01/17 21:01 75 18 127/62 (83) 96 05/01/17 20:01 36.6 76 13 128/54 (78) 96 Nasal Cannula 2.0 05/01/17 20:00 Nasal Cannula 2.0 05/01/17 19:18 44 11 131/58 (82) 93 05/01/17 19:01 65 13 130/62 (84) 88 05/01/17 16:01 36.8 68 17 124/60 (81) 95 Nasal Cannula 2.0 05/01/17 16:00 50 23 94 05/01/17 15:30 93 Nasal Cannula 2.0 05/01/17 15:01 64 27 123/69 (87) 90 05/01/17 15:00 68 15 88 05/01/17 14:41 75 19 92/62 (72) 92 05/01/17 14:01 73 19 123/43 (69) 96 Nasal Cannula 2.0 05/01/17 14:00 75 21 96 05/01/17 13:01 73 25 114/41 (65) 97 05/01/17 13:00 68 15 95 05/01/17 12:00 94 Nasal Cannula 2.0 05/01/17 12:00 78 17 05/01/17 11:01 36.9 73 21 122/52 (75) 95 Nasal Cannula 2.0 05/01/17 11:00 71 16 94 05/01/17 10:01 72 23 110/63 (79) 95 Nasal Cannula 2.0 05/01/17 10:00 84 18 95 05/01/17 09:01 71 22 122/90 (101) 94 05/01/17 09:00 77 17 87 05/01/17 08:01 74 16 115/61 (79) 05/01/17 08:00 Nasal Cannula 05/01/17 08:00 74 21 94 05/01/17 07:30 94 Nasal Cannula 2.0 05/01/17 07:01 36.8 72 19 123/66 (85) 95 Nasal Cannula 2.0 05/01/17 07:00 73 18 95 05/01/17 06:00 36.9 79 15 118/57 (77) 93 Nasal Cannula 2.0 05/01/17 04:00 95 Nasal Cannula 2.0 05/01/17 04:00 37.1 80 18 128/58 (81) 95 Nasal Cannula 2.0 05/01/17 02:00 37.0 72 18 129/59 (82) 92 Nasal Cannula 2.0 05/01/17 00:00 37.2 79 19 125/54 (77) 92 Nasal Cannula 2.0 05/01/17 00:00 92 Nasal Cannula 2.0 Laboratory Results: Last 24 Hours Test 05/01/17 05:49 05/01/17 11:55 05/01/17 17:03 White Blood Count 6.94 K/uL Red Blood Count 4.73 M/uL Hemoglobin 13.2 g/dL Hematocrit 39.9 % Mean Corpuscular Volume 84.4 fL Mean Corpuscular Hemoglobin 27.9 pg Mean Corpuscular Hemoglobin Concent 33.1 g/dl Platelet Count 151 K/uL Mean Platelet Volume 12.1 fL RDW Standard Deviation 47.9 fL RDW Coefficient of Variation 15.6 % Neutrophils % (Manual) 45.2 % Lymphocytes % (Manual) 15.7 % Monocytes % (Manual) 35.7 % Eosinophils % (Manual) 1.7 % Myelocytes % 1.7 % Neutrophils # (Manual) 3.14 K/uL Total Absolute Neutrophils 3.14 K/uL Lymphocytes # (Manual) 1.09 K/uL Total Absolute Lymphocytes 1.09 K/uL Monocytes # (Manual) 2.48 K/uL Eosinophils # (Manual) 0.12 K/uL Myelocytes # 0.12 K/uL Dohle Bodies 1+ Prothrombin Time 15.3 SECONDS Prothromb Time International Ratio 1.4 Activated Partial Thromboplast Time 32.9 SECONDS Partial Thromboplastin Ratio 1.3 Sodium Level 143 mmol/L 145 mmol/L Potassium Level 2.8 mmol/L 4.1 mmol/L Chloride Level 108 mmol/L 108 mmol/L Carbon Dioxide Level 27 mmol/L 28 mmol/L Anion Gap 8.0 mmol/L 9.0 mmol/L Blood Urea Nitrogen 58 mg/dl 63 mg/dl Creatinine 2.90 mg/dl 3.20 mg/dl Est Creatinine Clear Calc Drug Dose 32.7 ml/min 29.6 ml/min Estimated GFR () 24.6 21.9 Estimated GFR (Non- 21.3 18.9 BUN/Creatinine Ratio 20.0 19.8 Random Glucose 92 mg/dl 87 mg/dl Calcium Level 8.5 mg/dl 8.7 mg/dl Phosphorus Level 3.9 mg/dl Magnesium Level 2.8 mg/dl Total Bilirubin 0.6 mg/dl Direct Bilirubin 0.3 mg/dl Aspartate Amino Transf (AST/SGOT) 13 U/L Alanine Aminotransferase (ALT/SGPT) 19 U/L Alkaline Phosphatase 59 U/L Total Protein 5.9 gm/dl Albumin 2.2 gm/dl Bedside Glucose 107 mg/dl
[2017-05-02] VITALS (23 sets, daily range): BP systolic 109–160; BP diastolic 42–88; PULSE 42–86; TEMP 36.6–37.2; O2SAT 92–96
[2017-05-02] MEDS: OXYCODONE/ACETAMINOPHEN 10/325MG TAB PO PRN ×4 (04:22→22:10)
[2017-05-02] MEDS: LEVOTHYROXINE 25 MCG TAB PO SCH (06:00)
[2017-05-02] MEDS: METOCLOPRAMIDE HCL INJ 5 MG/ML 2 ML VIAL IV. SCH ×4 (06:00→23:55)
[2017-05-02] MEDS: HEPARIN SOD 5000 UNIT/0.5 ML CARP SQ SCH ×3 (06:00→22:11)
[2017-05-02] MEDS: RANITIDINE HCL 150 MG TAB PO SCH (08:16)
[2017-05-02] MEDS: CHOLECALCIFEROL 1000 INTER.UNIT TAB PO SCH (08:16)
[2017-05-02] MEDS: ASCORBIC ACID 500 MG TAB PO SCH (08:16)
[2017-05-02] MEDS: PREGABALIN 100 MG CAP PO SCH ×3 (08:16→20:39)
[2017-05-02] MEDS: CEROVITE ADV FORMULA TAB PO SCH (08:16)
[2017-05-02 09:42] LABS: HEMATOCRIT 41.4 % (42-52); MEAN CELL VOLUME 86.1 fL (80-100); MEAN CORPUSCULAR HEMOGLOBIN 26.4 pg (25-34); MEAN PLATELET VOLUME 11.1 fL (7.4-10.4); PLATELET COUNT 179 K/uL (130-400); RED BLOOD COUNT 4.81 M/uL (4.7-6.1); WHITE BLOOD COUNT 10.13 K/uL (4.8-10.8)
[2017-05-02 10:16] LABS: MEAN CORPUSCULAR HGB CONC 30.7 g/dl (32-36)
[2017-05-02 10:23] LABS: BASO % 0.9 %; BASO ABS # 0.09 K/uL (0-0.2); COMPLETE YES; DOHLE BODIES 1+; EOS % 2.9 %; IG% 3.1 %; LYMPH % 18.6 %; LYMPH ABS # 1.88 K/uL (1.2-3.4); MONO % 12.4 %; NEUT % 62.1 %
[2017-05-02 10:27] LABS: ALB/GLOB RATIO 0.6 (0.9-2); BUN/CREATININE RATIO 22.8 (10-20); CALCIUM 8.8 mg/dl (8.5-10.1); CREATININE 2.7 mg/dl (0.60-1.40); MAGNESIUM 3.3 mg/dl (1.8-2.4); PHOSPHORUS 3.2 mg/dl (2.5-4.9); POTASSIUM 3.1 mmol/L (3.5-5.1)
[2017-05-02] MEDS: NORMOSOL R 1,000 ML IV SCH (11:42)
[2017-05-02] MEDS ORDERED: POTASSIUM CHLR 10 MEQ / WTR 10 MEQ in PREMIXED WATER 100 ML IV SCH (12:45)
[2017-05-02] MEDS: POTASSIUM CHLR 20 MEQ / WTR 20 MEQ in PREMIXED WATER 100 ML IV SCH ×3 (13:01→17:25)
--- NOTE | 2017-05-02 13:01 | Nephrology Consultation ---
Nephrology Consultation Date & Providers Date of Consultation: May 02, 2017. Primary Care Provider: Carlo Willingham M.D. Referring Provider: Reason for Consultation Acute renal insufficiency History of Present Illness Mr. Zurdo Camacho was seen and evaluated in the ICU this morning. Pertinent aspects of the medical history and the plan of care were discussed with Dr. Ortiz this morning. Medical records were reviewed in detail. Zurdo was admitted to [facility] on April 26. He presented with several days of fevers and diarrhea. He was admitted with septic shock due to lower extremity cellulitis, strep bacteremia. He also has evidence of a partial small bowel obstruction. NGT has been placed. Watery stool persist and this is Zurdo's primary complaint. Oral intake is minimal clear liquids. Vasopressor support was required on admission but has since been weaned off. Hemodynamics currently stable. Fevers defervesced. Blood cultures have cleared. Strep being treated with ceftriaxone. Creatinine was at baseline 1.4 mg/dL on presentation. Following admission creatinine steadily rigoberto to 3.2 mg/dL. It has started to show evidence of improvement today. He has been non oliguric. He has significant fluid losses from NGT and diarrhea but remains overall in a positive fluid balance from admission. Urine output has increased in the past 24 hours. He was hypokalemic yesterday requiring IV replacement. CT of the abdomen and pelvis reveals a 15 mm right renal mass as well as nonobstructing nephrolithiasis in the left kidney. Medical history is notable for prior episodes of JERRY. In August of 2015, Zurdo suffered from JERRY consistent with ATN in the setting of GI bleed and subsequent bowel resection. Past Medical/Surgical History Medical: Chronic kidney disease III, baseline creatinine ~1.4 mg/dL History of JERRY History of GI hemorrhage following polypectomy necessitating hemicolectomy 2014 History of bacterial meningitis History of pneumonia Obesity GERD Nephrolithiasis Erectile dysfunction Hypertension Hypothyroidism Spinal stenosis and neuropathy CISNEROS LE edema Surgical: R hemicolectomy, appendectomy Allergies Coded Allergies: Tetracycline (Verified Allergy, Unknown, SORES IN MOUTH, 04/26/17) Inpatient Medications Current Inpatient Medications Medications (Trade) Dose Ordered Sig/Delonte Route Start Time Stop Time Status Last Admin Dose Admin Aspirin (Ecotrin Tab) 81 mg QPM PO 04/27/17 21:00 05/27/17 20:59 05/01/17 21:23 81 MG Cholecalciferol (Vitamin D Tab) 1,000 inter.unit QAM PO 04/27/17 09:00 05/27/17 08:59 05/02/17 08:16 1,000 INTER.UNIT Levothyroxine Sodium (Synthroid Tab) 25 mcg DAILYBB PO 04/27/17 06:00 05/27/17 05:59 05/01/17 05:44 25 MCG Montelukast Sodium (Singulair Tab) 10 mg HS PO 04/27/17 21:00 05/27/17 20:59 05/01/17 21:23 10 MG Multivitamins/ Minerals (Multivitamin W/ Minerals Tab) 1 tab DAILY PO 04/27/17 09:00 05/27/17 08:59 05/02/17 08:16 1 TAB Heparin Sodium (Porcine) (Heparin Sq 5000 Unit/0.5ml) 5,000 unit Q8 SQ 04/27/17 06:00 05/27/17 05:59 05/01/17 21:25 5,000 UNIT Ascorbic Acid (Vitamin C Tab) 1,000 mg QAM PO 04/27/17 09:00 05/27/17 08:59 05/02/17 08:16 1,000 MG Heparin Sodium (Porcine) (Heparin 10 Unit/ ml 5 ml Flush) 5 ml PRN PRN FLUSH 04/28/17 01:30 05/28/17 01:29 04/29/17 10:38 5 ML Ranitidine HCl (zANTac TAB) 150 mg QAM PO 04/29/17 09:00 05/29/17 08:59 05/02/17 08:16 150 MG Pregabalin (Lyrica Cap) 100 mg TID PO 04/28/17 14:00 05/28/17 13:59 05/02/17 08:16 100 MG Acetaminophen (Tylenol Tab) 650 mg TID PRN PO 04/29/17 21:00 05/29/17 08:59 Oxycodone/ Acetaminophen (Percocet 10-325MG Tab) 1 tab Q4 PRN PO 04/29/17 20:00 05/10/17 22:59 05/02/17 08:18 1 TAB Ondansetron HCl (Zofran Odt) 4 mg Q8H PRN PO 04/30/17 08:45 05/30/17 08:44 Parenteral Electrolyte Solution 1,000 ml @ 100 mls/hr Q10H IV 04/30/17 11:30 05/30/17 11:29 05/02/17 11:42 100 MLS/HR Metoclopramide HCl (Reglan Inj) 10 mg Q6 IV. 04/30/17 12:30 05/30/17 12:29 05/02/17 11:44 10 MG Ceftriaxone Sodium 2000 mg/ Dextrose 70 ml @ 100 mls/hr Q24H IV 04/30/17 18:00 05/14/17 17:59 05/01/17 17:05 100 MLS/HR Family History Blood clots FH: diabetes mellitus FHx: pulmonary embolism Social History Smoking Status: Former Smoker Drug Use: none Marital Status: Housing Status: lives with significant other Occupation: retired Review of Systems A complete review of systems was performed. Pertinent positives are noted above. All other systems are negative. Physical Exam Date Time Temp Pulse Resp B/P (MAP) Pulse Ox O2 Delivery O2 Flow Rate FiO2 05/02/17 10:02 83 21 145/68 (93) 93 Nasal Cannula 2.0 05/02/17 09:01 71 15 160/67 (98) 95 Nasal Cannula 2.0 05/02/17 08:10 36.9 78 20 149/66 (93) 95 Nasal Cannula 2.0 05/02/17 08:00 Nasal Cannula 2.0 05/02/17 07:02 51 22 135/56 (82) 95 Nasal Cannula 2.0 05/02/17 06:01 42 27 160/56 (90) 93 Nasal Cannula 2.0 05/02/17 05:01 43 18 153/53 (86) 94 05/02/17 04:01 36.6 57 18 138/49 (78) 95 Nasal Cannula 2.0 05/02/17 04:00 Nasal Cannula 2.0 05/02/17 03:27 44 16 142/66 (91) 92 05/02/17 03:01 71 17 142/66 (91) 95 05/02/17 02:01 76 15 152/42 (78) 93 05/02/17 01:13 76 23 120/64 (82) 95 05/02/17 00:01 36.7 74 17 131/71 (91) 94 Nasal Cannula 2.0 05/01/17 23:59 Nasal Cannula 2.0 05/01/17 23:01 45 16 143/52 (82) 97 05/01/17 22:01 76 14 120/56 (77) 96 05/01/17 21:01 75 18 127/62 (83) 96 05/01/17 20:01 36.6 76 13 128/54 (78) 96 Nasal Cannula 2.0 05/01/17 20:00 Nasal Cannula 2.0 05/01/17 19:18 44 11 131/58 (82) 93 05/01/17 19:01 65 13 130/62 (84) 88 05/01/17 16:01 36.8 68 17 124/60 (81) 95 Nasal Cannula 2.0 05/01/17 16:00 50 23 94 05/01/17 15:30 93 Nasal Cannula 2.0 05/01/17 15:01 64 27 123/69 (87) 90 05/01/17 15:00 68 15 88 05/01/17 14:41 75 19 92/62 (72) 92 05/01/17 14:01 73 19 123/43 (69) 96 Nasal Cannula 2.0 05/01/17 14:00 75 21 96 05/01/17 13:01 73 25 114/41 (65) 97 05/01/17 13:00 68 15 95 General Appearance: WD/WN, + obese Head: normocephalic, atraumatic Eyes: normal inspection, sclerae normal ENT: normal ENT inspection, pharynx normal, + pertinent finding (oral mucosa dry, NGT draining dark bilious fluid) Neck: supple (thick, JVP not significantly elevated), + pertinent finding Respiratory/Chest: lungs clear, no respiratory distress, no accessory muscle use Cardiovascular: regular rate, rhythm, no gallop, no murmur Abdomen/GI: + tenderness (slight generalized), + pertinent finding (Distended) Genitourinary - Male: + pertinent finding (Rodriguez draining clear yellow urine) Extremities/Musculoskelatal: normal inspection, no pedal edema Neurologic/Psych: alert, normal mood/affect Laboratory Results Last 24 Hours Test 05/01/17 17:03 05/02/17 00:20 05/02/17 09:22 Sodium Level 145 mmol/L 147 mmol/L Potassium Level 4.1 mmol/L 3.1 mmol/L Chloride Level 108 mmol/L 110 mmol/L Carbon Dioxide Level 28 mmol/L 29 mmol/L Anion Gap 9.0 mmol/L 8.0 mmol/L Blood Urea Nitrogen 63 mg/dl 62 mg/dl Creatinine 3.20 mg/dl 2.70 mg/dl Est Creatinine Clear Calc Drug Dose 29.6 ml/min 34.4 ml/min Estimated GFR () 21.9 26.9 Estimated GFR (Non- 18.9 23.2 BUN/Creatinine Ratio 19.8 22.8 Random Glucose 87 mg/dl 95 mg/dl Calcium Level 8.7 mg/dl 8.8 mg/dl Bedside Glucose 86 mg/dl White Blood Count 10.13 K/uL Red Blood Count 4.81 M/uL Hemoglobin 12.7 g/dL Hematocrit 41.4 % Mean Corpuscular Volume 86.1 fL Mean Corpuscular Hemoglobin 26.4 pg Mean Corpuscular Hemoglobin Concent 30.7 g/dl Platelet Count 179 K/uL Mean Platelet Volume 11.1 fL Neutrophils (%) (Auto) 62.1 % Lymphocytes (%) (Auto) 18.6 % Monocytes (%) (Auto) 12.4 % Eosinophils (%) (Auto) 2.9 % Basophils (%) (Auto) 0.9 % Neutrophils # (Auto) 6.30 K/uL Lymphocytes # (Auto) 1.88 K/uL Monocytes # (Auto) 1.26 K/uL Eosinophils # (Auto) 0.29 K/uL Basophils # (Auto) 0.09 K/uL RDW Standard Deviation 50.2 fL RDW Coefficient of Variation 15.9 % Immature Granulocyte % (Auto) 3.1 % Immature Granulocyte # (Auto) 0.31 K/uL Dohle Bodies 1+ Lactic Acid Level 0.8 mmol/L Ionized Calcium 1.12 mmol/l Phosphorus Level 3.2 mg/dl Magnesium Level 3.3 mg/dl Total Bilirubin 0.5 mg/dl Aspartate Amino Transf (AST/SGOT) 14 U/L Alanine Aminotransferase (ALT/SGPT) 18 U/L Alkaline Phosphatase 62 U/L Total Protein 6.1 gm/dl Albumin 2.3 gm/dl Globulin 3.8 gm/dl Albumin/Globulin Ratio 0.6 Impression (1) ATN (acute tubular necrosis) (2) Acute renal insufficiency (3) Hypokalemia (4) Septic shock (5) Calculus Of Kidney (6) Septicemia due to group B Streptococcus (7) Cellulitis Mr. Zurdo Camacho is an obese 66 year-old male with acute renal injury consistent with multifactorial ATN. He was admitted with diarrhea and septic shock from group B step bacteremia with cellulitis. He has evidence of a partial small bowel obstruction. Baseline creatinine ~1.4 mg/dL consistent with CKD III. Creatinine increased to 3.2 mg/dL on 05/01/17. Zurdo has been non oliguric. ATN both ischemic and septic complicated by NSAID and KULDIP use and iodinated contrast exposure on admission. Current physiology consistent with post ATN diuresis with hypokalemia complicated by GI losses. Creatinine showing evidence of renal recovery. Blood pressure and volume status are currently appropriate. Renal imaging has revealed a 15 mm R renal mass as well as non obstructing left renal calculi. There is no evidence of obstructive nephropathy. UA was notable for 3+ protein. Urine microscopy was acellular. Recommendations JERRY: -- Continue MIVF with a goal of maintaining an even fluid balance -- Provide an additional 80 mEq of oral KCl today -- Repeat metabolic profile this afternoon -- Reasonable to continue an electrolyte neutral fluid or consider D5+1/2NS+20K -- Document I/O's -- Monitor metabolic profile with magnesium daily Renal mas: -- Outpatient follow up with Dr. Francis at discharge
[2017-05-02 15:59] LABS: URINE APPEARANCE CLOUDY (CLEAR); URINE BILIRUBIN NEG (NEG); URINE COLOR DK YELLOW; URINE EPITHELIAL CELL AUTO >30 /lpf (0-5); URINE NITRITE NEG (NEG); URINE SPECIFIC GRAVITY 1.024 (1.000-1.030); UROBILINOGEN NEG (NEG)
[2017-05-02 16:01] LABS: MANUAL MICROSCOPIC REQUIRED? NO; REVIEW REQ? YES
--- NOTE | 2017-05-02 16:06 | Family Medicine Progress Note ---
Progress Note Date of Service May 02, 2017. Subjective Pt evaluation today including: conversation w/ patient, conversation w/ family , physical exam, chart review, lab review, review of inpatient medication list Pain: No pain reported PO Intake: NPO Voiding: goode catheter in place Mr. Camacho reports that he is not in any pain today. He has had approximately 20 bowel movements last night and a few this morning, and reports them to be semi-solid in nature, but denies the presence of any blood. He states that he has an appetite and denies chest pain, fever, or SOB. Constitutional: No fever, No chills, No sweats Cardiovascular: No chest pain, No orthopnea, No PND Abdomen: No pain, No nausea, No vomiting All Other Systems: Reviewed and Negative Medications Current Inpatient Medications Medications (Trade) Dose Ordered Sig/[place] Route Start Time Stop Time Status Last Admin Dose Admin Aspirin (Ecotrin Tab) 81 mg QPM PO 04/27/17 21:00 05/27/17 20:59 05/01/17 21:23 81 MG Cholecalciferol (Vitamin D Tab) 1,000 inter.unit QAM PO 04/27/17 09:00 05/27/17 08:59 05/02/17 08:16 1,000 INTER.UNIT Levothyroxine Sodium (Synthroid Tab) 25 mcg DAILYBB PO 04/27/17 06:00 05/27/17 05:59 05/01/17 05:44 25 MCG Montelukast Sodium (Singulair Tab) 10 mg HS PO 04/27/17 21:00 05/27/17 20:59 05/01/17 21:23 10 MG Multivitamins/ Minerals (Multivitamin W/ Minerals Tab) 1 tab DAILY PO 04/27/17 09:00 05/27/17 08:59 05/02/17 08:16 1 TAB Heparin Sodium (Porcine) (Heparin Sq 5000 Unit/0.5ml) 5,000 unit Q8 SQ 04/27/17 06:00 05/27/17 05:59 05/01/17 21:25 5,000 UNIT Ascorbic Acid (Vitamin C Tab) 1,000 mg QAM PO 04/27/17 09:00 05/27/17 08:59 05/02/17 08:16 1,000 MG Heparin Sodium (Porcine) (Heparin 10 Unit/ ml 5 ml Flush) 5 ml PRN PRN FLUSH 04/28/17 01:30 05/28/17 01:29 04/29/17 10:38 5 ML Ranitidine HCl (zANTac TAB) 150 mg QAM PO 04/29/17 09:00 05/29/17 08:59 05/02/17 08:16 150 MG Pregabalin (Lyrica Cap) 100 mg TID PO 04/28/17 14:00 05/28/17 13:59 05/02/17 08:16 100 MG Acetaminophen (Tylenol Tab) 650 mg TID PRN PO 04/29/17 21:00 05/29/17 08:59 Oxycodone/ Acetaminophen (Percocet 10-325MG Tab) 1 tab Q4 PRN PO 04/29/17 20:00 05/10/17 22:59 05/02/17 08:18 1 TAB Ondansetron HCl (Zofran Odt) 4 mg Q8H PRN PO 04/30/17 08:45 05/30/17 08:44 Parenteral Electrolyte Solution 1,000 ml @ 100 mls/hr Q10H IV 04/30/17 11:30 05/30/17 11:29 05/02/17 11:42 100 MLS/HR Metoclopramide HCl (Reglan Inj) 10 mg Q6 IV. 04/30/17 12:30 05/30/17 12:29 05/02/17 11:44 10 MG Ceftriaxone Sodium 2000 mg/ Dextrose 70 ml @ 100 mls/hr Q24H IV 04/30/17 18:00 05/14/17 17:59 05/01/17 17:05 100 MLS/HR Potassium Chloride 20 meq/ Prmx 100 ml @ 50 mls/hr Q2H IV 05/02/17 13:00 05/02/17 18:59 05/02/17 13:01 50 MLS/HR Objective Vital Signs Date Time Temp Pulse Resp B/P (MAP) Pulse Ox O2 Delivery O2 Flow Rate FiO2 05/02/17 12:01 37.0 67 17 148/88 (108) 93 Nasal Cannula 2.0 05/02/17 12:00 Nasal Cannula 2.0 05/02/17 11:01 78 30 146/69 (94) 93 Nasal Cannula 2.0 05/02/17 10:02 83 21 145/68 (93) 93 Nasal Cannula 2.0 05/02/17 09:01 71 15 160/67 (98) 95 Nasal Cannula 2.0 05/02/17 08:10 36.9 78 20 149/66 (93) 95 Nasal Cannula 2.0 05/02/17 08:00 Nasal Cannula 2.0 05/02/17 07:02 51 22 135/56 (82) 95 Nasal Cannula 2.0 05/02/17 06:01 42 27 160/56 (90) 93 Nasal Cannula 2.0 05/02/17 05:01 43 18 153/53 (86) 94 05/02/17 04:01 36.6 57 18 138/49 (78) 95 Nasal Cannula 2.0 05/02/17 04:00 Nasal Cannula 2.0 05/02/17 03:27 44 16 142/66 (91) 92 05/02/17 03:01 71 17 142/66 (91) 95 05/02/17 02:01 76 15 152/42 (78) 93 05/02/17 01:13 76 23 120/64 (82) 95 05/02/17 00:01 36.7 74 17 131/71 (91) 94 Nasal Cannula 2.0 05/01/17 23:59 Nasal Cannula 2.0 05/01/17 23:01 45 16 143/52 (82) 97 05/01/17 22:01 76 14 120/56 (77) 96 05/01/17 21:01 75 18 127/62 (83) 96 05/01/17 20:01 36.6 76 13 128/54 (78) 96 Nasal Cannula 2.0 05/01/17 20:00 Nasal Cannula 2.0 05/01/17 19:18 44 11 131/58 (82) 93 05/01/17 19:01 65 13 130/62 (84) 88 05/01/17 16:01 36.8 68 17 124/60 (81) 95 Nasal Cannula 2.0 05/01/17 16:00 50 23 94 05/01/17 15:30 93 Nasal Cannula 2.0 05/01/17 15:01 64 27 123/69 (87) 90 05/01/17 15:00 68 15 88 05/01/17 14:41 75 19 92/62 (72) 92 7/28/17 14:01 73 19 123/43 (69) 96 Nasal Cannula 2.0 05/01/17 14:00 75 21 96 Physical Exam General Appearance: WD/WN, no apparent distress Respiratory/Chest: chest non-tender, lungs clear, normal breath sounds, no respiratory distress, no accessory muscle use Cardiovascular: regular rate, rhythm, no gallop, no JVD, no murmur Abdomen: soft, no organomegaly, no pulsatile mass, + tenderness (mildly tender throughout) Extremities: + pertinent finding (dressing on left leg. No erythema extending above drawn line) Neurologic/Psychiatric: alert, normal mood/affect, oriented x 3 Laboratory Results 05/02/17 09:22 Red Blood Count 4.81, Mean Corpuscular Volume 86.1, Mean Corpuscular Hemoglobin 26.4, Mean Corpuscular Hemoglobin Concent 30.7, Mean Platelet Volume 11.1, Neutrophils (%) (Auto) 62.1, Lymphocytes (%) (Auto) 18.6, Monocytes (%) (Auto) 12.4, Eosinophils (%) (Auto) 2.9, Basophils (%) (Auto) 0.9, Neutrophils # (Auto ) 6.30, Lymphocytes # (Auto) 1.88, Monocytes # (Auto) 1.26, Eosinophils # (Auto ) 0.29, Basophils # (Auto) 0.09 05/02/17 09:22 Test 05/02/17 00:20 05/02/17 09:22 Bedside Glucose 86 mg/dl (70-99) White Blood Count 10.13 K/uL (4.8-10.8) Red Blood Count 4.81 M/uL (4.7-6.1) Hemoglobin 12.7 g/dL (14.0-18.0) Hematocrit 41.4 % (42-52) Mean Corpuscular Volume 86.1 fL (80-100) Mean Corpuscular Hemoglobin 26.4 pg (25-34) Mean Corpuscular Hemoglobin Concent 30.7 g/dl (32-36) Platelet Count 179 K/uL (130-400) Mean Platelet Volume 11.1 fL (7.4-10.4) Neutrophils (%) (Auto) 62.1 % Lymphocytes (%) (Auto) 18.6 % Monocytes (%) (Auto) 12.4 % Eosinophils (%) (Auto) 2.9 % Basophils (%) (Auto) 0.9 % Neutrophils # (Auto) 6.30 K/uL (1.4-6.5) Lymphocytes # (Auto) 1.88 K/uL (1.2-3.4) Monocytes # (Auto) 1.26 K/uL (0.11-0.59) Eosinophils # (Auto) 0.29 K/uL (0-0.5) Basophils # (Auto) 0.09 K/uL (0-0.2) RDW Standard Deviation 50.2 fL (36.4-46.3) RDW Coefficient of Variation 15.9 % (11.5-14.5) Immature Granulocyte % (Auto) 3.1 % Immature Granulocyte # (Auto) 0.31 K/uL (0.00-0.02) Dohle Bodies 1+ Anion Gap 8.0 mmol/L (3-11) Est Creatinine Clear Calc Drug Dose 34.4 ml/min Estimated GFR () 26.9 Estimated GFR (Non- 23.2 BUN/Creatinine Ratio 22.8 (10-20) Lactic Acid Level 0.8 mmol/L (0.4-2.0) Calcium Level 8.8 mg/dl (8.5-10.1) Ionized Calcium 1.12 mmol/l (1.12-1.32) Phosphorus Level 3.2 mg/dl (2.5-4.9) Magnesium Level 3.3 mg/dl (1.8-2.4) Total Bilirubin 0.5 mg/dl (0.2-1) Aspartate Amino Transf (AST/SGOT) 14 U/L (15-37) Alanine Aminotransferase (ALT/SGPT) 18 U/L (12-78) Alkaline Phosphatase 62 U/L (45-117) Total Protein 6.1 gm/dl (6.4-8.2) Albumin 2.3 gm/dl (3.4-5.0) Globulin 3.8 gm/dl (2.5-4.0) Albumin/Globulin Ratio 0.6 (0.9-2) Assessment and Plan 66 year old male presented with fever and hypotension - diagnosed with sepsis secondary to cellulitis. Sepsis secondary to left lower extremity cellulitis - continue 2g Rocephin daily - cellulitis improving clinically - has not spread beyond line drawn yesterday - wound care following - Pain control with Percocet and morphine as needed Bowel obstruction - abdominal pain and distention improving - having multiple bowel movements - today his NG tube output slowed considerably & was meier liquid. The suction was turned off and if he remains well & not bloated over the next 2 hours, the NG tube will be removed - currently NPO, will advance diet slowly based on tolerance & symptoms History of several bacteremias/sepsis including meningitis, pneumonia, cellulitis: - Suspect any underlying complement/ immunoglobulin deficiency - Recommend outpatient workup Acute kidney injury: - Cr decreased from 3.2 to 2.7 - likely due to a combination of septic shock, subsequent bowel obstruction & hypoperfusion, as well as contrast nephropathy - improving - but will monitor - consulted nephrology - thank you for input - as per nephro - continue IV fluids, 80 mEq of oral KCl given today & will monitor Renal mass on CT: - stable since 2014 - will follow up with Dr. 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 Discussed with Dr. Aburto and agree with findings and plan as documented in the note. Any exceptions or clarifications are listed here: None Documented By: Humberto Ramirez feeling better less NGT output, hungry having BMs. abdomen soft nd nt no masses no distention/tympany. breathing unlabored, vitals as in EMR sepsis from strep cellulitis - improving, abx per ID ileus vs obstruction - imrpoving. dc NGT safe for transfer to telemetry otherwise as above Resident Tracking Resident Involvement: Resident Care Provided Care Provided: Adult Hospital Medicine
[2017-05-02 16:10] LABS: URINE PATH CASTS 0-3 GRANULAR CASTS /lpf (0)
[2017-05-02] MEDS: CEFTRIAXONE SOD INJ 2,000 MG in DEXTROSE 5% 50ML 50 ML IV SCH (17:40)
--- NOTE | 2017-05-02 17:54 | Critical Care Progress Note ---
Critical Care Progress Note Date of Service May 02, 2017. Attending Dr. Ortiz Subjective More alert today Up in chair Decreased NG output Had numerous bowel movements overnight Afebrile Objective Gen: No acute distress. Pt is obese. HEENT: Head - normocephalic and atraumatic. Pupils are equal, round, and reactive to light. Extraocular eye muscles are intact and sclera are anicteric. Ears - bilaterally patent canals with noninjected tympanic membranes and no evidence of hemotympanum. Nose - moist nasal mucosa without discharge. Mouth - moist buccal mucosa. Oropharynx is nonerythematous and there is no tonsillar exudate or edema noted. Neck: Supple; no JVD, nuchal rigidity, cervical lymphadenopathy, or auscultated bruits. Heart: Regular rate and rhythm. There is a normal S1 and S2 with no murmurs, clicks, or gallops appreciated. Lungs: Clear to auscultation bilaterally with no wheezes, rales, or rhonchi. Abdomen: Soft, completely nontender, distended, present sounds. There are no palpable pulsatile masses or hepatosplenomegaly. There is no guarding, rigidity , or rebound noted. Extremities:Left extremity: Area of indurated erythema over the anterior, medial and lateral aspect of left leg. 2+ pitting edema. Pt has noticeable decreased ROM in the left leg (chronic) of unknown etiology. Distal pulses 2+ bilaterally. There is shingle trimmer the Left lower extremity. 1.5cm clean laceration at bottom of left foot, no signs of infection or inflammation. Marker outline applied to left leg erythema border at approx 11am on 04/27/17 and a smaller area was outline on 04/28/17. Worsening induration on 04/29/17. Erythema and weeping has improved from 04/29/17. Improving clinical presentation. Leg does not bother pt, pt states the leg is pain free although he does have a history of neuropathy. Pt has edematous upper and lower extremities. RLE: non edematous, no skin changes. FROM. Neuro:The patient is awake and alert, oriented to day, time, and place. There are no cerebellar signs. Current SOFA Score SOFA Score Response (Comments) Value Platelets (x10) > 150 0 Bilirubin (mg/dL) < 1.2 0 Protem Coma Score 15 0 Level of Hypotension No Hypotension 0 Creatinine (mg/dL) 2.0 - 3.4 2 Total 2 Assessment & Plan Patient with septic shock secondary to Streptococcus bacteremia, likely secondary to LLE cellulitis - Resolved JERRY Ileus vs obstruction GUS H/o hemicolectomy secondary to bleeding Sepsis/cellulitis - Off pressors. Blood Cx growing group B streptococcus, repeat cultures negative Continue on Rocephin for now, 2 gm daily Continue wrapping the leg Elevate leg Ileus/obstruction - seems to be resolving, has BM and flatus, abdomen is much softer, NG output diminished Consider removing the NGT tonight Continue Reglan for today NPO JERRY - creatinine improved today, good urine output Likely contrast induced nephropathy. FeNa was 0.1%, now is 0.5%. Still suggestive of prerenal state Urine sodium is increasing slightly Continue hydration, increase Normosol to 100 ml/hr Creatinine started to improve. Nephrology consult noted Significant hypokalemia secondary to GI losses, and possibly post ATN diuresis Supplement K GUS - unable to use CPAP while NGT is in place Critical care time spent with the patient and , discussing the case during rounds, greater than 25 minutes Documented By: Paulino Ortiz MD Consults & Procedures Consultants: Heme/Onc - Dr. Finch (signed off) Infection Disease Consult - 04/29/17 Wound Care Nurse - 04/29/17 Nephrology - 05/02; Dr Hebert Procedures: NA Data Medications: Current Inpatient Medications Medications (Trade) Dose Ordered Sig/[place] Route Start Time Stop Time Status Last Admin Dose Admin Aspirin (Ecotrin Tab) 81 mg QPM PO 04/27/17 21:00 05/27/17 20:59 05/01/17 21:23 81 MG Cholecalciferol (Vitamin D Tab) 1,000 inter.unit QAM PO 04/27/17 09:00 05/27/17 08:59 05/02/17 08:16 1,000 INTER.UNIT Levothyroxine Sodium (Synthroid Tab) 25 mcg DAILYBB PO 04/27/17 06:00 05/27/17 05:59 05/01/17 05:44 25 MCG Montelukast Sodium (Singulair Tab) 10 mg HS PO 04/27/17 21:00 05/27/17 20:59 05/01/17 21:23 10 MG Multivitamins/ Minerals (Multivitamin W/ Minerals Tab) 1 tab DAILY PO 04/27/17 09:00 05/27/17 08:59 05/02/17 08:16 1 TAB Heparin Sodium (Porcine) (Heparin Sq 5000 Unit/0.5ml) 5,000 unit Q8 SQ 04/27/17 06:00 05/27/17 05:59 05/02/17 14:09 5,000 UNIT Ascorbic Acid (Vitamin C Tab) 1,000 mg QAM PO 04/27/17 09:00 05/27/17 08:59 05/02/17 08:16 1,000 MG Heparin Sodium (Porcine) (Heparin 10 Unit/ ml 5 ml Flush) 5 ml PRN PRN FLUSH 04/28/17 01:30 05/28/17 01:29 04/29/17 10:38 5 ML Ranitidine HCl (zANTac TAB) 150 mg QAM PO 04/29/17 09:00 05/29/17 08:59 05/02/17 08:16 150 MG Pregabalin (Lyrica Cap) 100 mg TID PO 04/28/17 14:00 05/28/17 13:59 05/02/17 08:16 100 MG Acetaminophen (Tylenol Tab) 650 mg TID PRN PO 04/29/17 21:00 05/29/17 08:59 Oxycodone/ Acetaminophen (Percocet 10-325MG Tab) 1 tab Q4 PRN PO 04/29/17 20:00 05/10/17 22:59 05/02/17 17:24 1 TAB Ondansetron HCl (Zofran Odt) 4 mg Q8H PRN PO 04/30/17 08:45 05/30/17 08:44 Parenteral Electrolyte Solution 1,000 ml @ 100 mls/hr Q10H IV 04/30/17 11:30 05/30/17 11:29 05/02/17 11:42 100 MLS/HR Metoclopramide HCl (Reglan Inj) 10 mg Q6 IV. 04/30/17 12:30 05/30/17 12:29 05/02/17 17:40 10 MG Ceftriaxone Sodium 2000 mg/ Dextrose 70 ml @ 100 mls/hr Q24H IV 04/30/17 18:00 05/14/17 17:59 05/02/17 17:40 100 MLS/HR Potassium Chloride 20 meq/ Prmx 100 ml @ 50 mls/hr Q2H IV 05/02/17 13:00 05/02/17 18:59 05/02/17 17:25 50 MLS/HR I & O: 24-Hour Column 05/03/17 08:00 Intake Total 813 ml Output Total 725 ml Balance 88 ml Vital Signs: Date Time Temp Pulse Resp B/P (MAP) Pulse Ox O2 Delivery O2 Flow Rate FiO2 05/02/17 16:01 36.9 58 20 148/65 (92) 94 Nasal Cannula 2.0 05/02/17 16:00 Nasal Cannula 2.0 05/02/17 15:02 60 22 150/52 (84) 95 Nasal Cannula 2.0 05/02/17 14:01 79 21 109/51 (70) 93 Nasal Cannula 2.0 05/02/17 13:01 74 15 160/79 (106) 93 Nasal Cannula 2.0 05/02/17 12:01 37.0 67 17 148/88 (108) 93 Nasal Cannula 2.0 05/02/17 12:00 Nasal Cannula 2.0 05/02/17 11:01 78 30 146/69 (94) 93 Nasal Cannula 2.0 05/02/17 10:02 83 21 145/68 (93) 93 Nasal Cannula 2.0 05/02/17 09:01 71 15 160/67 (98) 95 Nasal Cannula 2.0 05/02/17 08:10 36.9 78 20 149/66 (93) 95 Nasal Cannula 2.0 05/02/17 08:00 Nasal Cannula 2.0 05/02/17 07:02 51 22 135/56 (82) 95 Nasal Cannula 2.0 05/02/17 06:01 42 27 160/56 (90) 93 Nasal Cannula 2.0 05/02/17 05:01 43 18 153/53 (86) 94 05/02/17 04:01 36.6 57 18 138/49 (78) 95 Nasal Cannula 2.0 05/02/17 04:00 Nasal Cannula 2.0 05/02/17 03:27 44 16 142/66 (91) 92 05/02/17 03:01 71 17 142/66 (91) 95 05/02/17 02:01 76 15 152/42 (78) 93 05/02/17 01:13 76 23 120/64 (82) 95 05/02/17 00:01 36.7 74 17 131/71 (91) 94 Nasal Cannula 2.0 05/01/17 23:59 Nasal Cannula 2.0 05/01/17 23:01 45 16 143/52 (82) 97 05/01/17 22:01 76 14 120/56 (77) 96 05/01/17 21:01 75 18 127/62 (83) 96 05/01/17 20:01 36.6 76 13 128/54 (78) 96 Nasal Cannula 2.0 05/01/17 20:00 Nasal Cannula 2.0 05/01/17 19:18 44 11 131/58 (82) 93 05/01/17 19:01 65 13 130/62 (84) 88 Laboratory Results: Last 24 Hours Test 05/02/17 00:20 05/02/17 09:22 05/02/17 15:44 Bedside Glucose 86 mg/dl White Blood Count 10.13 K/uL Red Blood Count 4.81 M/uL Hemoglobin 12.7 g/dL Hematocrit 41.4 % Mean Corpuscular Volume 86.1 fL Mean Corpuscular Hemoglobin 26.4 pg Mean Corpuscular Hemoglobin Concent 30.7 g/dl Platelet Count 179 K/uL Mean Platelet Volume 11.1 fL Neutrophils (%) (Auto) 62.1 % Lymphocytes (%) (Auto) 18.6 % Monocytes (%) (Auto) 12.4 % Eosinophils (%) (Auto) 2.9 % Basophils (%) (Auto) 0.9 % Neutrophils # (Auto) 6.30 K/uL Lymphocytes # (Auto) 1.88 K/uL Monocytes # (Auto) 1.26 K/uL Eosinophils # (Auto) 0.29 K/uL Basophils # (Auto) 0.09 K/uL RDW Standard Deviation 50.2 fL RDW Coefficient of Variation 15.9 % Immature Granulocyte % (Auto) 3.1 % Immature Granulocyte # (Auto) 0.31 K/uL Dohle Bodies 1+ Sodium Level 147 mmol/L Potassium Level 3.1 mmol/L Chloride Level 110 mmol/L Carbon Dioxide Level 29 mmol/L Anion Gap 8.0 mmol/L Blood Urea Nitrogen 62 mg/dl Creatinine 2.70 mg/dl Est Creatinine Clear Calc Drug Dose 34.4 ml/min Estimated GFR () 26.9 Estimated GFR (Non- 23.2 BUN/Creatinine Ratio 22.8 Random Glucose 95 mg/dl Lactic Acid Level 0.8 mmol/L Calcium Level 8.8 mg/dl Ionized Calcium 1.12 mmol/l Phosphorus Level 3.2 mg/dl Magnesium Level 3.3 mg/dl Total Bilirubin 0.5 mg/dl Aspartate Amino Transf (AST/SGOT) 14 U/L Alanine Aminotransferase (ALT/SGPT) 18 U/L Alkaline Phosphatase 62 U/L Total Protein 6.1 gm/dl Albumin 2.3 gm/dl Globulin 3.8 gm/dl Albumin/Globulin Ratio 0.6 Urine Color DK YELLOW Urine Appearance CLOUDY Urine pH 5.0 Urine Specific [place] 1.024 Urine Protein 2+ Urine Glucose (UA) NEG Urine Ketones 1+ Urine Occult Blood 2+ Urine Nitrite NEG Urine Bilirubin NEG Urine Urobilinogen NEG Urine Leukocyte Esterase NEG Urine WBC (Auto) 1-5 /hpf Urine RBC (Auto) 5-10 /hpf Urine Hyaline Casts (Auto) 5-10 /lpf Urine Epithelial Cells (Auto) >30 /lpf Urine Bacteria (Auto) NEG Urine Pathogenic Casts 0-3 GRANULAR CASTS /lpf Urine Yeast (Auto) Urine Random Creatinine 97.0 mg/dl Urine Random Sodium 26 mEq/L
[2017-05-02 19:26] LABS: BUN/CREATININE RATIO 24.9 (10-20); CALCIUM 8.8 mg/dl (8.5-10.1); CREATININE 2.5 mg/dl (0.60-1.40); PHOSPHORUS 2.8 mg/dl (2.5-4.9)
[2017-05-02 19:27] LABS: POTASSIUM 3.7 mmol/L (3.5-5.1)
[2017-05-02] MEDS: ASPIRIN 81 MG ECTAB PO SCH (20:39)
[2017-05-02] MEDS: MONTELUKAST SOD 10 MG TAB PO SCH (20:40)
[2017-05-03] MEDS: OXYCODONE/ACETAMINOPHEN 10/325MG TAB PO PRN ×5 (02:02→21:47)
[2017-05-03 04:06] VITALS: BP 178/57; PULSE 81; TEMP 36.8; O2SAT 95
[2017-05-03 04:59] LABS: HEMATOCRIT 38.3 % (42-52); MEAN CORPUSCULAR HGB CONC 31.9 g/dl (32-36); MEAN PLATELET VOLUME 11.5 fL (7.4-10.4); PLATELET COUNT 182 K/uL (130-400); RED BLOOD COUNT 4.35 M/uL (4.7-6.1); WHITE BLOOD COUNT 12.55 K/uL (4.8-10.8)
[2017-05-03 05:22] LABS: BUN/CREATININE RATIO 24.5 (10-20); CALCIUM 8.5 mg/dl (8.5-10.1); CREATININE 2.3 mg/dl (0.60-1.40); PHOSPHORUS 2.7 mg/dl (2.5-4.9); POTASSIUM 3.4 mmol/L (3.5-5.1)
[2017-05-03] MEDS: LEVOTHYROXINE 25 MCG TAB PO SCH (06:01)
[2017-05-03] MEDS: NORMOSOL R 1,000 ML IV SCH (06:01)
[2017-05-03] MEDS: METOCLOPRAMIDE HCL INJ 5 MG/ML 2 ML VIAL IV. SCH ×3 (06:01→18:18)
[2017-05-03] MEDS: HEPARIN SOD 5000 UNIT/0.5 ML CARP SQ SCH ×3 (06:02→22:05)
[2017-05-03 08:07] VITALS: BP 132/76; PULSE 89; TEMP 36.7; O2SAT 91
[2017-05-03] MEDS: ASCORBIC ACID 500 MG TAB PO SCH (09:18)
[2017-05-03] MEDS: CEROVITE ADV FORMULA TAB PO SCH (09:19)
[2017-05-03] MEDS: RANITIDINE HCL 150 MG TAB PO SCH (09:19)
[2017-05-03] MEDS: CHOLECALCIFEROL 1000 INTER.UNIT TAB PO SCH (09:19)
[2017-05-03] MEDS: PREGABALIN 100 MG CAP PO SCH ×3 (09:19→20:25)
[2017-05-03] MEDS ORDERED: POTASSIUM CHLORIDE 20 MEQ TABCR PO ONE (11:00)
--- NOTE | 2017-05-03 11:35 | Family Medicine Progress Note ---
Progress Note Date of Service May 03, 2017. Subjective Pt evaluation today including: conversation w/ patient, conversation w/ family , physical exam, chart review, lab review, review of inpatient medication list Pain: 6/10 pain reported in both legs PO Intake: Tolerating PO intake of ice chips & sips of water Voiding: no voiding problems Mr. Camacho reports that he is feeling better today. He is much more comfortable since his NG tube was removed yesterday, and denies any abdominal pain. He has been having bowel movements and denies the presence of any blood in his stool. He is now able to get up and walk around his room independently. He still reports that he has 6/10 pain in both of his legs, but states that this is normal for him given his peripheral neuropathy. Constitutional: No fever, No chills, No sweats, No weight loss Respiratory: No cough, No sputum, No wheezing, No shortness of breath Cardiovascular: No chest pain, No orthopnea, No PND Abdomen: No pain, No nausea, No vomiting, No diarrhea, No constipation Musculoskeletal: + problem reported (bilateral leg pain) All Other Systems: Reviewed and Negative Medications Current Inpatient Medications Medications (Trade) Dose Ordered Sig/[place] Route Start Time Stop Time Status Last Admin Dose Admin Aspirin (Ecotrin Tab) 81 mg QPM PO 04/27/17 21:00 05/27/17 20:59 05/02/17 20:39 81 MG Cholecalciferol (Vitamin D Tab) 1,000 inter.unit QAM PO 04/27/17 09:00 05/27/17 08:59 05/03/17 09:19 1,000 INTER.UNIT Levothyroxine Sodium (Synthroid Tab) 25 mcg DAILYBB PO 04/27/17 06:00 05/27/17 05:59 05/03/17 06:01 25 MCG Montelukast Sodium (Singulair Tab) 10 mg HS PO 04/27/17 21:00 05/27/17 20:59 05/02/17 20:40 10 MG Multivitamins/ Minerals (Multivitamin W/ Minerals Tab) 1 tab DAILY PO 04/27/17 09:00 05/27/17 08:59 05/03/17 09:19 1 TAB Heparin Sodium (Porcine) (Heparin Sq 5000 Unit/0.5ml) 5,000 unit Q8 SQ 04/27/17 06:00 8/23/17 05:59 05/03/17 06:02 5,000 UNIT Ascorbic Acid (Vitamin C Tab) 1,000 mg QAM PO 04/27/17 09:00 05/27/17 08:59 05/03/17 09:18 1,000 MG Heparin Sodium (Porcine) (Heparin 10 Unit/ ml 5 ml Flush) 5 ml PRN PRN FLUSH 04/28/17 01:30 05/28/17 01:29 04/29/17 10:38 5 ML Ranitidine HCl (zANTac TAB) 150 mg QAM PO 04/29/17 09:00 05/29/17 08:59 05/03/17 09:19 150 MG Pregabalin (Lyrica Cap) 100 mg TID PO 04/28/17 14:00 05/28/17 13:59 05/03/17 09:19 100 MG Acetaminophen (Tylenol Tab) 650 mg TID PRN PO 04/29/17 21:00 05/29/17 08:59 Oxycodone/ Acetaminophen (Percocet 10-325MG Tab) 1 tab Q4 PRN PO 04/29/17 20:00 05/10/17 22:59 05/03/17 09:18 1 TAB Ondansetron HCl (Zofran Odt) 4 mg Q8H PRN PO 04/30/17 08:45 05/30/17 08:44 Parenteral Electrolyte Solution 1,000 ml @ 100 mls/hr Q10H IV 04/30/17 11:30 05/30/17 11:29 05/03/17 06:01 100 MLS/HR Metoclopramide HCl (Reglan Inj) 10 mg Q6 IV. 04/30/17 12:30 05/30/17 12:29 05/03/17 06:01 10 MG Ceftriaxone Sodium 2000 mg/ Dextrose 70 ml @ 100 mls/hr Q24H IV 04/30/17 18:00 05/14/17 17:59 05/02/17 17:40 100 MLS/HR Objective Vital Signs Date Time Temp Pulse Resp B/P (MAP) Pulse Ox O2 Delivery O2 Flow Rate FiO2 05/03/17 08:07 36.7 89 14 132/76 (94) 91 05/03/17 08:00 Room Air 05/03/17 04:06 36.8 81 14 178/57 (97) 95 Nasal Cannula 3.0 05/03/17 04:00 Nasal Cannula 2.0 05/03/17 00:02 Nasal Cannula 2.0 05/02/17 23:09 37.2 86 20 136/47 (76) 96 Nasal Cannula 3.0 05/02/17 20:00 36.8 76 20 135/75 (95) 94 Nasal Cannula 2.0 05/02/17 20:00 Nasal Cannula 2.0 05/02/17 19:01 79 19 156/83 (107) 92 Nasal Cannula 2.0 05/02/17 18:01 55 21 146/60 (88) 92 Nasal Cannula 2.0 05/02/17 17:01 56 19 155/68 (97) 94 Nasal Cannula 2.0 05/02/17 16:01 36.9 58 20 148/65 (92) 94 Nasal Cannula 2.0 05/02/17 16:00 Nasal Cannula 2.0 05/02/17 15:02 60 22 150/52 (84) 95 Nasal Cannula 2.0 05/02/17 14:01 79 21 109/51 (70) 93 Nasal Cannula 2.0 05/02/17 13:01 74 15 160/79 (106) 93 Nasal Cannula 2.0 05/02/17 12:01 37.0 67 17 148/88 (108) 93 Nasal Cannula 2.0 05/02/17 12:00 Nasal Cannula 2.0 05/02/17 11:01 78 30 146/69 (94) 93 Nasal Cannula 2.0 05/02/17 10:02 83 21 145/68 (93) 93 Nasal Cannula 2.0 Physical Exam General Appearance: WD/WN, no apparent distress Respiratory/Chest: chest non-tender, lungs clear, normal breath sounds, no respiratory distress, no accessory muscle use Cardiovascular: regular rate, rhythm, no gallop, no JVD, no murmur Abdomen: normal bowel sounds, non tender, soft, no organomegaly, no pulsatile mass Skin: + pertinent finding (left leg covered in dressing - erythema fading beyond line drawn - still hot to touch) Laboratory Results 05/03/17 04:31 05/03/17 04:31 Test 05/02/17 15:44 05/03/17 04:31 Urine Color DK YELLOW Urine Appearance CLOUDY (CLEAR) Urine pH 5.0 (4.5-7.5) Urine Specific [place] 1.024 (1.000-1.030) Urine Protein 2+ (NEG) Urine Glucose (UA) NEG (NEG) Urine Ketones 1+ (NEG) Urine Occult Blood 2+ (NEG) Urine Nitrite NEG (NEG) Urine Bilirubin NEG (NEG) Urine Urobilinogen NEG (NEG) Urine Leukocyte Esterase NEG (NEG) Urine WBC (Auto) 1-5 /hpf (0-5) Urine RBC (Auto) 5-10 /hpf (0-4) Urine Hyaline Casts (Auto) 5-10 /lpf (0-5) Urine Epithelial Cells (Auto) >30 /lpf (0-5) Urine Bacteria (Auto) NEG (NEG) Urine Pathogenic Casts 0-3 GRANULAR CASTS /lpf (0) Urine Yeast (Auto) (NONE PRSENT) Urine Random Creatinine 97.0 mg/dl Urine Random Sodium 26 mEq/L Red Blood Count 4.35 M/uL (4.7-6.1) Mean Corpuscular Volume 88.0 fL (80-100) Mean Corpuscular Hemoglobin 28.0 pg (25-34) Mean Corpuscular Hemoglobin Concent 31.9 g/dl (32-36) RDW Standard Deviation 51.5 fL (36.4-46.3) RDW Coefficient of Variation 15.9 % (11.5-14.5) Mean Platelet Volume 11.5 fL (7.4-10.4) Anion Gap 5.0 mmol/L (3-11) Est Creatinine Clear Calc Drug Dose 40.4 ml/min Estimated GFR () 32.6 Estimated GFR (Non- 28.1 BUN/Creatinine Ratio 24.5 (10-20) Calcium Level 8.5 mg/dl (8.5-10.1) Phosphorus Level 2.7 mg/dl (2.5-4.9) Magnesium Level 3.0 mg/dl (1.8-2.4) Albumin 2.3 gm/dl (3.4-5.0) Assessment and Plan 66 year old male presented with fever and hypotension - diagnosed with sepsis secondary to cellulitis. Sepsis secondary to left lower extremity cellulitis - continue 2g Rocephin daily - cellulitis continuing to improve, pt up and walking today - goode removed - wound care following - Pain control with Percocet and morphine as needed Bowel obstruction - NG tube removed & patient is currently tolerating ice chips & water well. Will advance diet to clears today & if he tolerates it well, will advance to full liquid diet tomorrow - having bowel movements, no abdo pain or tenderness History of several bacteremias/sepsis including meningitis, pneumonia, cellulitis: - Suspect any underlying complement/ immunoglobulin deficiency - Recommend outpatient workup Acute kidney injury: - Cr decreased from 2.7 to 2.3 - likely due to a combination of septic shock, subsequent bowel obstruction & hypoperfusion, as well as contrast nephropathy - giving IV fluids with potassium supplementation as per Dr. Hebert. Potassium today was 3.4 - improving - but will monitor Renal mass on CT: - stable since 2014 - will follow up with Dr. Francis at discharge Right adrenal gland nodule: - likely incidentaloma GERD - Ranitidine 150mg PO qam (renally dosed) Asthma - continue montelukast GUS - continue CPAP at night Peripheral Neuropathy - continue pregabalin (renally dosed) Hypothyroidism - continue levothyroxine 25 mcg DVT Prophylaxis - heparin 5000 units SQ Q8H Code - Full Disposition - On med/surg Resident Physician Supervision Note: I interviewed and examined the patient. Discussed with Dr. Aburto and agree with findings and plan as documented in the note. Any exceptions or clarifications are listed here: None Documented By: Humberto Ramirez feeling better tolearting sips without problem having BMs. leg getting better vitlas noted nad breathing unlabored no pallor or icterus leg erythema stable in size getting duller in color strep sepsis due to leg cellulitis - improving. rocephin ileus vs SBO - improving. slow advance diet otherwise as above Resident Tracking Resident Involvement: Resident Care Provided Care Provided: Adult Hospital Medicine
[2017-05-03] MEDS: D5W AND 1/2NSS + 20MEQ KCL 1,000 ML IV SCH ×2 (12:00→18:18)
[2017-05-03 12:04] VITALS: BP 146/66; PULSE 78; TEMP 36.3; O2SAT 90
--- NOTE | 2017-05-03 14:01 | Nephrology Progress Note ---
Nephrology Progress Note Date of Service May 03, 2017. Chief Complaint Acute renal insufficiency Subjective Mr. Camacho was seen and evaluated this morning. He reported persistent loose stool. Abdominal discomfort improving. He is out of bed and ambulating in his room. He denies shortness of breath. He denied fevers or chills. Review of Systems A complete review of systems was performed. Pertinent positives are noted above. All other systems are negative. Vital Signs Last 8 Hrs Date Time Temp Pulse Resp B/P (MAP) Pulse Ox O2 Delivery O2 Flow Rate FiO2 05/03/17 12:04 36.3 78 18 146/66 (92) 90 Room Air 05/03/17 12:00 Room Air 05/03/17 08:07 36.7 89 14 132/76 (94) 91 05/03/17 08:00 Room Air Last Recorded Weight Weight (Kilograms): 131.000 Physical Exam General Appearance: no apparent distress, + obese Head: normocephalic, atraumatic Eyes: normal inspection, sclerae normal ENT: normal ENT inspection, pharynx normal Neck: supple, no JVD Respiratory/Chest: lungs clear, no respiratory distress, no accessory muscle use Cardiovascular: regular rate, rhythm, no gallop Abdomen/GI: + tenderness, + distended Genitourinary - Male: + pertinent finding (Rodriguez draining yellow urine) Extremities/Musculoskelatal: normal inspection, no pedal edema Neurologic/Psych: alert, oriented x 3 Family History Blood clots FH: diabetes mellitus FHx: pulmonary embolism Social History Drug Use: none Marital Status: Housing Status: lives with significant other Occupation: retired Laboratory Results Past 24 Hours 05/03/17 04:31 05/02/17 18:34 05/03/17 04:31 Test 05/02/17 15:44 05/02/17 18:34 05/03/17 04:31 Urine Color DK YELLOW Urine Appearance CLOUDY (CLEAR) Urine pH 5.0 (4.5-7.5) Urine Specific [place] 1.024 (1.000-1.030) Urine Protein 2+ (NEG) Urine Glucose (UA) NEG (NEG) Urine Ketones 1+ (NEG) Urine Occult Blood 2+ (NEG) Urine Nitrite NEG (NEG) Urine Bilirubin NEG (NEG) Urine Urobilinogen NEG (NEG) Urine Leukocyte Esterase NEG (NEG) Urine WBC (Auto) 1-5 /hpf (0-5) Urine RBC (Auto) 5-10 /hpf (0-4) Urine Hyaline Casts (Auto) 5-10 /lpf (0-5) Urine Epithelial Cells (Auto) >30 /lpf (0-5) Urine Bacteria (Auto) NEG (NEG) Urine Pathogenic Casts 0-3 GRANULAR CASTS /lpf (0) Urine Yeast (Auto) (NONE PRSENT) Urine Random Creatinine 97.0 mg/dl Urine Random Sodium 26 mEq/L Anion Gap 9.0 mmol/L (3-11) 5.0 mmol/L (3-11) Est Creatinine Clear Calc Drug Dose 37.2 ml/min 40.4 ml/min Estimated GFR () 29.5 32.6 Estimated GFR (Non- 25.4 28.1 BUN/Creatinine Ratio 24.9 (10-20) 24.5 (10-20) Calcium Level 8.8 mg/dl (8.5-10.1) 8.5 mg/dl (8.5-10.1) Phosphorus Level 2.8 mg/dl (2.5-4.9) 2.7 mg/dl (2.5-4.9) Albumin 2.3 gm/dl (3.4-5.0) 2.3 gm/dl (3.4-5.0) Red Blood Count 4.35 M/uL (4.7-6.1) Mean Corpuscular Volume 88.0 fL (80-100) Mean Corpuscular Hemoglobin 28.0 pg (25-34) Mean Corpuscular Hemoglobin Concent 31.9 g/dl (32-36) RDW Standard Deviation 51.5 fL (36.4-46.3) RDW Coefficient of Variation 15.9 % (11.5-14.5) Mean Platelet Volume 11.5 fL (7.4-10.4) Magnesium Level 3.0 mg/dl (1.8-2.4) Allergies Coded Allergies: Tetracycline (Verified Allergy, Unknown, SORES IN MOUTH, 04/26/17) Medications Current Inpatient Medications Medications (Trade) Dose Ordered Sig/[place] Route Start Time Stop Time Status Last Admin Dose Admin Aspirin (Ecotrin Tab) 81 mg QPM PO 04/27/17 21:00 05/27/17 20:59 05/02/17 20:39 81 MG Cholecalciferol (Vitamin D Tab) 1,000 inter.unit QAM PO 04/27/17 09:00 05/27/17 08:59 05/03/17 09:19 1,000 INTER.UNIT Levothyroxine Sodium (Synthroid Tab) 25 mcg DAILYBB PO 04/27/17 06:00 05/27/17 05:59 05/03/17 06:01 25 MCG Montelukast Sodium (Singulair Tab) 10 mg HS PO 04/27/17 21:00 05/27/17 20:59 05/02/17 20:40 10 MG Multivitamins/ Minerals (Multivitamin W/ Minerals Tab) 1 tab DAILY PO 04/27/17 09:00 05/27/17 08:59 05/03/17 09:19 1 TAB Heparin Sodium (Porcine) (Heparin Sq 5000 Unit/0.5ml) 5,000 unit Q8 SQ 04/27/17 06:00 05/27/17 05:59 05/03/17 06:02 5,000 UNIT Ascorbic Acid (Vitamin C Tab) 1,000 mg QAM PO 04/27/17 09:00 05/27/17 08:59 05/03/17 09:18 1,000 MG Heparin Sodium (Porcine) (Heparin 10 Unit/ ml 5 ml Flush) 5 ml PRN PRN FLUSH 04/28/17 01:30 05/28/17 01:29 04/29/17 10:38 5 ML Ranitidine HCl (zANTac TAB) 150 mg QAM PO 04/29/17 09:00 05/29/17 08:59 05/03/17 09:19 150 MG Pregabalin (Lyrica Cap) 100 mg TID PO 04/28/17 14:00 05/28/17 13:59 05/03/17 09:19 100 MG Acetaminophen (Tylenol Tab) 650 mg TID PRN PO 04/29/17 21:00 05/29/17 08:59 Oxycodone/ Acetaminophen (Percocet 10-325MG Tab) 1 tab Q4 PRN PO 04/29/17 20:00 05/10/17 22:59 05/03/17 09:18 1 TAB Ondansetron HCl (Zofran Odt) 4 mg Q8H PRN PO 04/30/17 08:45 05/30/17 08:44 Metoclopramide HCl (Reglan Inj) 10 mg Q6 IV. 04/30/17 12:30 05/30/17 12:29 05/03/17 06:01 10 MG Ceftriaxone Sodium 2000 mg/ Dextrose 70 ml @ 100 mls/hr Q24H IV 04/30/17 18:00 05/14/17 17:59 05/02/17 17:40 100 MLS/HR Potassium Chloride/Dextrose/ Sod Cl 1,000 ml @ 150 mls/hr Q6H40M IV 05/03/17 11:00 06/02/17 10:59 05/03/17 12:00 150 MLS/HR Potassium Chloride (Klor-Con Tab) 40 meq BID PO 05/03/17 21:00 06/02/17 20:59 Impression (1) ATN (acute tubular necrosis) (2) Acute renal insufficiency (3) Hypokalemia (4) Septic shock (5) Calculus Of Kidney (6) Septicemia due to group B Streptococcus (7) Cellulitis Mr. Zurdo Camacho is an obese 66 year-old male with non oliguric acute renal injury consistent with multifactorial ATN. He was admitted with diarrhea and septic shock from group B step bacteremia with cellulitis. Baseline creatinine ~1.4 mg/dL consistent with CKD III. Creatinine increased to 3.2 mg/dL on 05/01/17. He did not require HANDER IN and renal function is improving. ATN is likely both ischemic and septic complicated by NSAID and KULDIP use and iodinated contrast exposure on admission. He has free water losses, hypernatremia and hypokalemia related to GI losses and well as renal recovery. NGT has been removed. He is taking small amount of clear liquid diet. Blood pressure and volume status are currently appropriate. IVF switched to D5+1/2NS+20 mEq K this morning. Rate at 125 ml/hr per hour which can be adjusted as needed to maintain even fluid balance. Additional oral potassium replacement being given 40 mEq BID. Will monitor metabolic profile q 12 hours. Renal imaging has revealed a 15 mm R renal mass as well as non obstructing left renal calculi. There is no evidence of obstructive nephropathy. UA was notable for 3+ protein. Urine microscopy was acellular. Recommendations JERRY/ATN: -- Continue MIVF with a goal of maintaining an even fluid balance -- Provide an additional 80 mEq of oral KCl today -- Repeat metabolic profile this afternoon -- For electrolyte abnormalities IVF switched to D5+1/2NS+20K @ 150 ml/hr -- Document I/O's -- Monitor metabolic profile with magnesium daily Hypokalemia: -- KCl 40 mEq BID + MIVF Renal mas: -- Outpatient follow up with Dr. Francis
[2017-05-03 15:08] VITALS: BP 155/82; PULSE 80; TEMP 36.4; O2SAT 92
[2017-05-03 17:48] LABS: BUN/CREATININE RATIO 27.3 (10-20); CALCIUM 8.6 mg/dl (8.5-10.1); CREATININE 1.8 mg/dl (0.60-1.40); POTASSIUM 3.5 mmol/L (3.5-5.1)
[2017-05-03 18:03] LABS: PHOSPHORUS 1.7 mg/dl (2.5-4.9)
[2017-05-03] MEDS: CEFTRIAXONE SOD INJ 2,000 MG in DEXTROSE 5% 50ML 50 ML IV SCH (18:18)
[2017-05-03 18:45] VITALS: BP 144/73; PULSE 85; TEMP 37.1; O2SAT 90
[2017-05-03] MEDS: ASPIRIN 81 MG ECTAB PO SCH (20:25)
[2017-05-03] MEDS: MONTELUKAST SOD 10 MG TAB PO SCH (20:25)
[2017-05-03] MEDS: POTASSIUM CHLORIDE 20 MEQ TABCR PO SCH (20:26)
[2017-05-04] VITALS (8 sets, daily range): BP systolic 126–145; BP diastolic 53–68; PULSE 69–105; TEMP 36.8–37.4; O2SAT 92–96
[2017-05-04] MEDS: METOCLOPRAMIDE HCL INJ 5 MG/ML 2 ML VIAL IV. SCH ×3 (00:05→12:18)
[2017-05-04] MEDS: D5W AND 1/2NSS + 20MEQ KCL 1,000 ML IV SCH ×3 (00:06→17:41)
[2017-05-04] MEDS: LEVOTHYROXINE 25 MCG TAB PO SCH (05:54)
[2017-05-04] MEDS: HEPARIN SOD 5000 UNIT/0.5 ML CARP SQ SCH ×3 (05:54→21:35)
[2017-05-04 06:13] LABS: BUN/CREATININE RATIO 27.1 (10-20); CALCIUM 8.8 mg/dl (8.5-10.1); CREATININE 1.7 mg/dl (0.60-1.40); MAGNESIUM 2.5 mg/dl (1.8-2.4); POTASSIUM 3.5 mmol/L (3.5-5.1)
[2017-05-04 06:32] LABS: PHOSPHORUS 0.9 mg/dl (2.5-4.9)
[2017-05-04] MEDS ORDERED: POTASSIUM PHOS 3 MMOL/1 ML INFUSION IV STA ×3 (07:11→18:32)
[2017-05-04] MEDS ORDERED: POTASSIUM PHOSPHATE INJ 15 MMOL in SODIUM CHLORIDE 0.9% 250ML 250 ML IV ONE (07:30)
[2017-05-04] MEDS: CHOLECALCIFEROL 1000 INTER.UNIT TAB PO SCH (07:50)
[2017-05-04] MEDS: POTASSIUM CHLORIDE 20 MEQ TABCR PO SCH (07:50)
[2017-05-04] MEDS: ASCORBIC ACID 500 MG TAB PO SCH (07:50)
[2017-05-04] MEDS: RANITIDINE HCL 150 MG TAB PO SCH (07:51)
[2017-05-04] MEDS: CEROVITE ADV FORMULA TAB PO SCH (07:51)
[2017-05-04] MEDS: OXYCODONE/ACETAMINOPHEN 10/325MG TAB PO PRN ×2 (07:58→19:49)
[2017-05-04] MEDS: PREGABALIN 100 MG CAP PO SCH ×3 (07:58→19:48)
[2017-05-04] MEDS ORDERED: CHOLESTYRAMINE LIGHT 4 GM PKT PO ONE (09:20)
--- NOTE | 2017-05-04 10:13 | Nephrology Progress Note ---
Nephrology Progress Note Date of Service May 04, 2017. Chief Complaint JERRY due to septic shock in the setting of NSAID / KULDIP inhibitor therapy Subjective Mr. Camacho was seen & examined in the ICU this morning. At the time of my evaluation he was sitting up in a chair eating breakfast. He currently denies fever, flank pain or nausea. He reports brisk urine output. He notes that his left leg erythema and tenderness is markedly improved. Review of Systems Constitutional: No fever Cardiovascular: No chest pain Respiratory: No dyspnea at rest Abdomen: No pain, No nausea, No vomiting Extremities: + leg edema A complete review of systems was performed. Pertinent positives are noted above. All other systems are negative. Vital Signs Last 8 Hrs Date Time Temp Pulse Resp B/P (MAP) Pulse Ox O2 Delivery O2 Flow Rate FiO2 05/04/17 08:05 36.9 105 20 140/60 (86) 95 Nasal Cannula 2.0 05/04/17 08:00 Room Air 05/04/17 04:00 Room Air 05/04/17 03:42 37.0 93 22 137/59 (85) 95 Nasal Cannula 2.0 Last Recorded Weight Weight (Kilograms): 130.400 Physical Exam General Appearance: no apparent distress, + obese Head: normocephalic, atraumatic Eyes: PERRL, EOMI Neck: no adenopathy Respiratory/Chest: lungs clear Cardiovascular: regular rate, rhythm Abdomen/GI: normal bowel sounds, non tender, soft Extremities/Musculoskelatal: + pertinent finding (L leg wrapped. Above the wrap is a line of demarcation drawn by the RN. Erythema at this point above the wrap has completely resolved.) Neurologic/Psych: alert, oriented x 3 Family History Blood clots FH: diabetes mellitus FHx: pulmonary embolism Social History Drug Use: none Marital Status: Housing Status: lives with significant other Occupation: retired Laboratory Results Past 24 Hours 05/03/17 17:09 05/04/17 05:16 Test 05/03/17 17:09 05/04/17 05:16 Anion Gap 8.0 mmol/L (3-11) 6.0 mmol/L (3-11) Est Creatinine Clear Calc Drug Dose 51.9 ml/min 55.0 ml/min Estimated GFR () 43.8 47.0 Estimated GFR (Non- 37.8 40.5 BUN/Creatinine Ratio 27.3 (10-20) 27.1 (10-20) Calcium Level 8.6 mg/dl (8.5-10.1) 8.8 mg/dl (8.5-10.1) Phosphorus Level 1.7 mg/dl (2.5-4.9) 0.9 mg/dl (2.5-4.9) Albumin 2.3 gm/dl (3.4-5.0) 2.4 gm/dl (3.4-5.0) Magnesium Level 2.5 mg/dl (1.8-2.4) Allergies Coded Allergies: Tetracycline (Verified Allergy, Unknown, SORES IN MOUTH, 04/26/17) Medications Current Inpatient Medications Medications (Trade) Dose Ordered Sig/[place] Route Start Time Stop Time Status Last Admin Dose Admin Aspirin (Ecotrin Tab) 81 mg QPM PO 04/27/17 21:00 05/27/17 20:59 05/03/17 20:25 81 MG Cholecalciferol (Vitamin D Tab) 1,000 inter.unit QAM PO 04/27/17 09:00 05/27/17 08:59 05/04/17 07:50 1,000 INTER.UNIT Levothyroxine Sodium (Synthroid Tab) 25 mcg DAILYBB PO 04/27/17 06:00 05/27/17 05:59 05/04/17 05:54 25 MCG Montelukast Sodium (Singulair Tab) 10 mg HS PO 04/27/17 21:00 05/27/17 20:59 05/03/17 20:25 10 MG Multivitamins/ Minerals (Multivitamin W/ Minerals Tab) 1 tab DAILY PO 04/27/17 09:00 05/27/17 08:59 05/04/17 07:51 1 TAB Heparin Sodium (Porcine) (Heparin Sq 5000 Unit/0.5ml) 5,000 unit Q8 SQ 04/27/17 06:00 05/27/17 05:59 05/04/17 05:54 5,000 UNIT Ascorbic Acid (Vitamin C Tab) 1,000 mg QAM PO 04/27/17 09:00 05/27/17 08:59 05/04/17 07:50 1,000 MG Heparin Sodium (Porcine) (Heparin 10 Unit/ ml 5 ml Flush) 5 ml PRN PRN FLUSH 04/28/17 01:30 05/28/17 01:29 04/29/17 10:38 5 ML Ranitidine HCl (zANTac TAB) 150 mg QAM PO 04/29/17 09:00 05/29/17 08:59 05/04/17 07:51 150 MG Pregabalin (Lyrica Cap) 100 mg TID PO 04/28/17 14:00 05/28/17 13:59 05/04/17 07:58 100 MG Acetaminophen (Tylenol Tab) 650 mg TID PRN PO 04/29/17 21:00 05/29/17 08:59 Oxycodone/ Acetaminophen (Percocet 10-325MG Tab) 1 tab Q4 PRN PO 04/29/17 20:00 05/10/17 22:59 05/04/17 07:58 1 TAB Ondansetron HCl (Zofran Odt) 4 mg Q8H PRN PO 04/30/17 08:45 05/30/17 08:44 Metoclopramide HCl (Reglan Inj) 10 mg Q6 IV. 04/30/17 12:30 05/30/17 12:29 05/04/17 05:54 10 MG Ceftriaxone Sodium 2000 mg/ Dextrose 70 ml @ 100 mls/hr Q24H IV 04/30/17 18:00 05/14/17 17:59 05/03/17 18:18 100 MLS/HR Potassium Chloride (Klor-Con Tab) 40 meq BID PO 05/03/17 21:00 06/02/17 20:59 05/04/17 07:50 40 MEQ Saccharomyces Boulardii (Florastor Cap) 250 mg TID PO 05/04/17 14:00 06/03/17 13:59 Cholestyramine Resin (Questran Powder Light) 4 gm DAILY PO 05/05/17 09:00 06/04/17 08:59 Impression (1) ATN (acute tubular necrosis) (2) Acute renal insufficiency (3) Hypokalemia (4) Septic shock (5) Calculus Of Kidney (6) Septicemia due to group B Streptococcus (7) Cellulitis Mr. Zurdo Camacho is a 66 year-old male with non oliguric acute renal injury consistent with multifactorial ATN. He was admitted with diarrhea and septic shock from group B step bacteremia with cellulitis. Baseline creatinine ~1.4 mg/dL consistent with CKD III. Creatinine increased to 3.2 mg/ dL on 05/01/17. 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 ATN is likely both ischemic and septic complicated by NSAID and KULDIP use and iodinated contrast exposure on admission. Renal imaging has revealed a 15 mm R renal mass as well as non obstructing left renal calculi. There is no evidence of obstructive nephropathy. UA was notable for 3+ protein. Urine microscopy was acellular. Recommendations JERRY/ATN: -- Patient was 2 L volume positive overnight. MIV has been stopped. Will encourage oral hydration. -- Serum potassium is low normal. Continue oral KCl supplementation -- Monitor metabolic profile with magnesium daily Hypokalemia: -- Correcting. Continue oral KCl. Serum Mg is acceptable Renal mass: -- Outpatient follow up with Dr. Francis
--- NOTE | 2017-05-04 11:42 | Family Medicine Progress Note ---
Progress Note Date of Service May 04, 2017. Subjective Pt evaluation today including: conversation w/ patient Pt was seen and examined at bedside. Pt appears delirious, is oriented to person, place and time but stated that the president is Dmitry Miller. This is a change from his baseline. Pt was given a one to one in the AM for pulling at his sites. *Update* - Pt appears to be saying non sensical things. was in the room. Rodriguez catheter was removed yesterday and he appears not to have gone to the bathroom. We will be doing a bladder scan and placing a 1 to 1 back in the room. Plan of care was described to pt and and all questions were answered. Constitutional: No fever, No chills, No sweats, No weight loss Respiratory: No cough, No sputum, No wheezing, No shortness of breath Abdomen: No pain, No nausea, No vomiting, No diarrhea Male : No dysuria Objective Physical Exam General Appearance: WD/WN, + mild distress, + obese Respiratory/Chest: chest non-tender, lungs clear, normal breath sounds, no respiratory distress, no accessory muscle use Cardiovascular: regular rate, rhythm, no gallop, no murmur, + tachycardia Abdomen: normal bowel sounds, non tender, soft, no organomegaly, no pulsatile mass Extremities: non-tender, normal inspection, + pertinent finding (decreased strength in the left lower extremity. ) Neurologic/Psychiatric: no motor/sensory deficits, alert, normal mood/affect Skin: + pertinent finding (There appears an area of skin sloughing on the medial aspect of the left leg, leg appears more purple, the erythema has decreased. There is not tenderness or crepitus felt on the leg. I cannot say the leg has greatly improved since last when I saw it last, in fact it may be worse than last . ) Assessment and Plan 66Mpresented with [age] and hypotension - diagnosed with sepsis secondary to cellulitis. Hospital course is complicated by a bowel obstruction which required NG tube placement. Pt has had loose stools during his entire admission with increasing frequency. C. Diff was repeated and continues to be negative. Pt does not have any signs of UTI. Confusion on hospital day #9 likely related to dehydration. Sepsis secondary to chronic left lower extremity cellulitis - BPs are still excellent. - Wound care on board, wound is improving albeit slowly. - continue 2g Rocephin daily, per ID will need 10 day course. - Pain control with Percocet and morphine as needed AMS 2/2 Dehydration/?infection - AMS on 05/04/17. - hydration Bowel obstruction with loose stools - NG tube removed & patient is currently tolerating clear liquids. - Pt continues to have multiple loose BMs, C. Diff negative. JERRY on CKD - Cr 2.7-->2.3-->1.7-->2.2 - pt is likely dehydrated. - 1L normosol bolus and maintenance of 100mls/hr of D5+1/2NSS+20meqKCl Hypernatremia - likely sec to dehydration from diarrhea. - half NSS. History of several bacteremias/sepsis including meningitis, pneumonia, cellulitis: - Suspect any underlying complement/ immunoglobulin deficiency - Recommend outpatient workup Renal mass on CT: - stable since 2014 - will follow up with Dr. Francis at discharge Right adrenal gland nodule: - likely incidentaloma GERD - Ranitidine 150mg PO qam (renally dosed) Asthma - continue montelukast GUS - continue CPAP at night Peripheral Neuropathy - continue pregabalin (renally dosed) Hypothyroidism - continue levothyroxine 25 mcg DVT Prophylaxis - heparin 5000 units SQ Q8H Disposition - Tele Full Code Resident Involvement: Resident Care Provided Care Provided: Adult Hospital Medicine Reviewed: Pt Seen/Exam by Me History confused this am. restless in bed later in the day Constitutional: denies: fever Respiratory: negative: short of breath Cardiovascular: denies chest pain Gastrointestinal/Abdominal: negative: abdominal pain General Appearance: mild distress (restless ) Respiratory: lungs clear, no respiratory distress Cardiovascular: regular rate, rhythm Neurologic/Psychiatric: other (drowsy) Skin Characteristics: other (left leg - dressing removed. underlying skin with venous stasis changes. no acute erythema noted) Assessment/Plan Resident Physician Supervision Note: I was present with Dr. Hurtado in bedside. I verified the le history and physical, reviewed labs and image studies, discussed the case with the resident and agree with the findings and care plan.
--- NOTE | 2017-05-04 13:23 | Wound Progress Note: Inpatient ---
Wound Progress Note Date of Service May 04, 2017. Subjective Pt evaluation today including: conversation w/ patient, conversation w/ family , chart review Patient is seen again today due to development of blister formation at the site of cellulitis of the left lower extremity. No significant active drainage was noted by staff. Patient is confused today and unable to provide any additional history. Objective Vital Signs Date Time Temp Pulse Resp B/P (MAP) Pulse Ox O2 Delivery O2 Flow Rate FiO2 05/04/17 12:00 Room Air 05/04/17 11:33 37.4 97 23 144/61 (88) 92 Nasal Cannula 2.0 05/04/17 08:05 36.9 105 20 140/60 (86) 95 Nasal Cannula 2.0 05/04/17 08:00 Room Air 05/04/17 04:00 Room Air 05/04/17 03:42 37.0 93 22 137/59 (85) 95 Nasal Cannula 2.0 05/04/17 00:26 37.0 86 18 145/56 (85) 95 Nasal Cannula 2.0 05/04/17 00:02 Room Air 05/03/17 20:00 Room Air 05/03/17 18:45 37.1 85 18 144/73 (96) 90 Room Air 05/03/17 16:00 Room Air 05/03/17 15:08 36.4 80 18 155/82 (106) 92 Room Air Physical Exam Notes: The site today shows blister formation occurring the medial aspect of the cellulitic area. There is no extension of erythema noted. Some cobblestoning deformity is also beginning to develop in the area over a prior infection. No significant active drainage is noted. No tenderness to palpation or fluctuance noted. Laboratory Results Last 24 Hours Test 05/03/17 17:09 05/04/17 05:16 05/04/17 13:10 Sodium Level 147 mmol/L 148 mmol/L Potassium Level 3.5 mmol/L 3.5 mmol/L Chloride Level 109 mmol/L 111 mmol/L Carbon Dioxide Level 30 mmol/L 31 mmol/L Anion Gap 8.0 mmol/L 6.0 mmol/L Blood Urea Nitrogen 49 mg/dl 46 mg/dl Creatinine 1.80 mg/dl 1.70 mg/dl Est Creatinine Clear Calc Drug Dose 51.9 ml/min 55.0 ml/min Estimated GFR () 43.8 47.0 Estimated GFR (Non- 37.8 40.5 BUN/Creatinine Ratio 27.3 27.1 Random Glucose 105 mg/dl 153 mg/dl Calcium Level 8.6 mg/dl 8.8 mg/dl Phosphorus Level 1.7 mg/dl 0.9 mg/dl Albumin 2.3 gm/dl 2.4 gm/dl Magnesium Level 2.5 mg/dl Assessment and Plan Assessment: Cellulitis left lower extremity with blister formation secondary to probable group B strep infection. Plan: At this time the site did require debridement. With the lights permission this site was prepped with Xylocaine 4% in the blister formations were T removed with scissors and forceps. No significant bleeding occurred. Continue to be dressed with Aquasol AG gauze and a co-bandlike compression wrap changed in the next 48 hours. The site of the debridement area now measures 8.5 x 3.2 x 0.1 cm. This represented a non-excisional debridement of less than 20 cm.
[2017-05-04] MEDS: SACCHAROMYCES BOUL (FLORASTOR) 250 MG CAP PO SCH ×2 (14:00→19:51)
[2017-05-04 14:11] LABS: URINE APPEARANCE CLOUDY (CLEAR); URINE COLOR DK YELLOW; URINE EPITHELIAL CELL AUTO >30 /lpf (0-5); URINE NITRITE NEG (NEG); URINE PH 5.5 (4.5-7.5); URINE SPECIFIC GRAVITY 1.023 (1.000-1.030); UROBILINOGEN NEG (NEG)
[2017-05-04 14:39] LABS: MANUAL MICROSCOPIC REQUIRED? NO; REVIEW REQ? YES; URINE BILIRUBIN NEG (NEG)
[2017-05-04] MEDS ORDERED: NURSING VERBAL MED ORDER ONE (17:15)
[2017-05-04] MEDS ORDERED: NORMOSOL R 1,000 ML IV ONE ×2 (17:30→19:15)
[2017-05-04] MEDS: CEFTRIAXONE SOD INJ 2,000 MG in DEXTROSE 5% 50ML 50 ML IV SCH (17:42)
[2017-05-04 17:47] LABS: MEAN CELL VOLUME 86.4 fL (80-100); MEAN CORPUSCULAR HEMOGLOBIN 27.7 pg (25-34); MEAN PLATELET VOLUME 11.3 fL (7.4-10.4); PLATELET COUNT 245 K/uL (130-400); WHITE BLOOD COUNT 13.39 K/uL (4.8-10.8)
[2017-05-04 18:08] LABS: BUN/CREATININE RATIO 28.1 (10-20); CALCIUM 8.8 mg/dl (8.5-10.1); CREATININE 2.1 mg/dl (0.60-1.40); MAGNESIUM 2.6 mg/dl (1.8-2.4); PHOSPHORUS 1.8 mg/dl (2.5-4.9); POTASSIUM 3.7 mmol/L (3.5-5.1)
[2017-05-04 18:16] LABS: MEAN CORPUSCULAR HGB CONC 32.1 g/dl (32-36)
[2017-05-04 18:17] LABS: BASO ABS # 0.12 K/uL (0-0.2); BASOPHIL % 0.9 % (0-2); COMPLETE YES; EOSINOPHIL % 0.9 %; LYMPH ABS # 1.29 K/uL (1.2-3.4); LYMPHOCYTE % 9.6 %; META ABS # 0.12 K/uL (0-0); METAMYELOCYTE % 0.9 %; NEUTROPHILS % 76.4 %
--- NOTE | 2017-05-04 18:22 | Infectious Disease Progress Nt ---
Progress Note Date of Service May 04, 2017. Subjective Pt evaluation today including: conversation w/ patient, conversation w/ family , physical exam, chart review, lab review, review of studies, conversation w/ [facility] consultant, review of inpatient medication list Patient currently very confused and combative. Apparently this has been going on for last several hours. Has had difficulty urinating, and now with some diarrhea. Remains afebrile. Hemodynamically stable overnight. All Other Systems: Reviewed and Negative Medications Current Inpatient Medications Medications (Trade) Dose Ordered Sig/[place] Route Start Time Stop Time Status Last Admin Dose Admin Aspirin (Ecotrin Tab) 81 mg QPM PO 04/27/17 21:00 05/27/17 20:59 05/03/17 20:25 81 MG Cholecalciferol (Vitamin D Tab) 1,000 inter.unit QAM PO 04/27/17 09:00 05/27/17 08:59 05/04/17 07:50 1,000 INTER.UNIT Levothyroxine Sodium (Synthroid Tab) 25 mcg DAILYBB PO 04/27/17 06:00 05/27/17 05:59 05/04/17 05:54 25 MCG Montelukast Sodium (Singulair Tab) 10 mg HS PO 04/27/17 21:00 05/27/17 20:59 05/03/17 20:25 10 MG Multivitamins/ Minerals (Multivitamin W/ Minerals Tab) 1 tab DAILY PO 04/27/17 09:00 05/27/17 08:59 05/04/17 07:51 1 TAB Heparin Sodium (Porcine) (Heparin Sq 5000 Unit/0.5ml) 5,000 unit Q8 SQ 04/27/17 06:00 05/27/17 05:59 05/04/17 14:22 5,000 UNIT Ascorbic Acid (Vitamin C Tab) 1,000 mg QAM PO 04/27/17 09:00 05/27/17 08:59 05/04/17 07:50 1,000 MG Heparin Sodium (Porcine) (Heparin 10 Unit/ ml 5 ml Flush) 5 ml PRN PRN FLUSH 04/28/17 01:30 05/28/17 01:29 04/29/17 10:38 5 ML Ranitidine HCl (zANTac TAB) 150 mg QAM PO 04/29/17 09:00 05/29/17 08:59 05/04/17 07:51 150 MG Pregabalin (Lyrica Cap) 100 mg TID PO 04/28/17 14:00 05/28/17 13:59 05/04/17 07:58 100 MG Acetaminophen (Tylenol Tab) 650 mg TID PRN PO 04/29/17 21:00 05/29/17 08:59 Oxycodone/ Acetaminophen (Percocet 10-325MG Tab) 1 tab Q4 PRN PO 04/29/17 20:00 05/10/17 22:59 05/04/17 07:58 1 TAB Ondansetron HCl (Zofran Odt) 4 mg Q8H PRN PO 04/30/17 08:45 05/30/17 08:44 Metoclopramide HCl (Reglan Inj) 10 mg Q6 IV. 04/30/17 12:30 05/30/17 12:29 Future hold 05/04/17 12:18 10 MG Ceftriaxone Sodium 2000 mg/ Dextrose 70 ml @ 100 mls/hr Q24H IV 04/30/17 18:00 05/14/17 17:59 05/04/17 17:42 100 MLS/HR Potassium Chloride (Klor-Con Tab) 40 meq BID PO 05/03/17 21:00 06/02/17 20:59 05/04/17 07:50 40 MEQ Saccharomyces Boulardii (Florastor Cap) 250 mg TID PO 05/04/17 14:00 06/03/17 13:59 05/04/17 14:00 250 MG Cholestyramine Resin (Questran Powder Light) 4 gm DAILY PO 05/05/17 09:00 06/04/17 08:59 Parenteral Electrolyte Solution 1,000 ml @ 999 mls/hr Q1H1M ONCE IV 05/04/17 17:30 05/04/17 18:30 05/04/17 17:56 999 MLS/HR Potassium Chloride/Dextrose/ Sod Cl 1,000 ml @ 100 mls/hr Q10H IV 05/04/17 18:00 06/03/17 17:29 05/04/17 17:41 100 MLS/HR Objective Vital Signs Date Time Temp Pulse Resp B/P (MAP) Pulse Ox O2 Delivery O2 Flow Rate FiO2 05/04/17 16:00 36.8 98 20 139/68 (91) 96 Nasal Cannula 2.0 05/04/17 12:00 Room Air 05/04/17 11:33 37.4 97 23 144/61 (88) 92 Nasal Cannula 2.0 05/04/17 08:05 36.9 105 20 140/60 (86) 95 Nasal Cannula 2.0 05/04/17 08:00 Room Air 05/04/17 04:00 Room Air 05/04/17 03:42 37.0 93 22 137/59 (85) 95 Nasal Cannula 2.0 05/04/17 00:26 37.0 86 18 145/56 (85) 95 Nasal Cannula 2.0 05/04/17 00:02 Room Air 05/03/17 20:00 Room Air 05/03/17 18:45 37.1 85 18 144/73 (96) 90 Room Air Physical Exam General Appearance: WD/WN, + mild distress Eyes: normal inspection, EOMI, sclerae normal ENT: normal ENT inspection, pharynx normal Neck: supple, no adenopathy, thyroid normal, trachea midline Respiratory/Chest: chest non-tender, lungs clear, normal breath sounds, no respiratory distress Cardiovascular: regular rate, rhythm, no gallop, no murmur Abdomen: normal bowel sounds, non tender, soft, no organomegaly, + distended Extremities: normal capillary refill, + inflammation, + swelling Neurologic/Psychiatric: alert, + disoriented Skin: normal color, + pertinent finding ( Left lower extremity cellulitis without progression, some superficial skin loss and blistering) Lymphatic: no adenopathy Laboratory Results Date/Time Source Procedure Growth Status 05/04/17 00:00 Stool C.difficile Toxin B Gene (PCR) - Final No C. difficile toxin B gene detected Complete Last 24 Hours Test 05/04/17 05:16 05/04/17 12:30 05/04/17 17:38 Sodium Level 148 mmol/L 149 mmol/L Potassium Level 3.5 mmol/L 3.7 mmol/L Chloride Level 111 mmol/L 114 mmol/L Carbon Dioxide Level 31 mmol/L 29 mmol/L Anion Gap 6.0 mmol/L 6.0 mmol/L Blood Urea Nitrogen 46 mg/dl 59 mg/dl Creatinine 1.70 mg/dl 2.10 mg/dl Est Creatinine Clear Calc Drug Dose 55.0 ml/min 44.4 ml/min Estimated GFR () 47.0 36.4 Estimated GFR (Non- 40.5 31.4 BUN/Creatinine Ratio 27.1 28.1 Random Glucose 153 mg/dl 133 mg/dl Calcium Level 8.8 mg/dl 8.8 mg/dl Phosphorus Level 0.9 mg/dl 1.8 mg/dl Magnesium Level 2.5 mg/dl 2.6 mg/dl Albumin 2.4 gm/dl Urine Color DK YELLOW Urine Appearance CLOUDY Urine pH 5.5 Urine Specific [place] 1.023 Urine Protein 2+ Urine Glucose (UA) NEG Urine Ketones TRACE Urine Occult Blood 2+ Urine Nitrite NEG Urine Bilirubin NEG Urine Urobilinogen NEG Urine Leukocyte Esterase TRACE Urine WBC (Auto) 1-5 /hpf Urine RBC (Auto) 5-10 /hpf Urine Hyaline Casts (Auto) 1-5 /lpf Urine Epithelial Cells (Auto) >30 /lpf Urine Bacteria (Auto) NEG Urine Renal Epithelial Cells 0-5 /lpf Urine Crystals AMORPHOUS SEDIMENT Urine Pathogenic Casts /lpf White Blood Count 13.39 K/uL Red Blood Count 4.40 M/uL Hemoglobin 12.2 g/dL Hematocrit 38.0 % Mean Corpuscular Volume 86.4 fL Mean Corpuscular Hemoglobin 27.7 pg Mean Corpuscular Hemoglobin Concent 32.1 g/dl Platelet Count 245 K/uL Mean Platelet Volume 11.3 fL RDW Standard Deviation 50.5 fL RDW Coefficient of Variation 15.9 % Neutrophils % (Manual) 76.4 % Lymphocytes % (Manual) 9.6 % Monocytes % (Manual) 11.3 % Eosinophils % (Manual) 0.9 % Basophils % (Manual) 0.9 % Metamyelocytes % 0.9 % Neutrophils # (Manual) 10.23 K/uL Total Absolute Neutrophils 10.23 K/uL Lymphocytes # (Manual) 1.29 K/uL Total Absolute Lymphocytes 1.29 K/uL Monocytes # (Manual) 1.51 K/uL Eosinophils # (Manual) 0.12 K/uL Basophils # (Manual) 0.12 K/uL Metamyelocytes # 0.12 K/uL Assessment and Plan (1) Hypothyroidism (2) Obesity (3) Hypertension (4) Acid reflux (5) Septic shock (6) Hypotension (7) Neuropathy Status: Chronic (8) Left leg cellulitis Status: Acute (9) Sleep apnea 58-year-old male with acute group B streptococcal sepsis with left lower extremity cellulitis and acute kidney injury. As discussed, patient has been changed to IV ceftriaxone 2 grams daily, and likely will require in the range of 10 days of IV antibiotics. etiology of acute change in mental status unclear at present, and patient to be evaluated for possible C difficile colitis as well as urinary tract infection. May need imaging brain EEG MRI if symptoms continue.
[2017-05-04] MEDS ORDERED: POTASSIUM PHOSPHATE INJ 9 MMOL in SODIUM CHLORIDE 0.9% 250ML 250 ML IV ONE (19:30)
[2017-05-04] MEDS: MONTELUKAST SOD 10 MG TAB PO SCH (19:50)
[2017-05-04] MEDS: ASPIRIN 81 MG ECTAB PO SCH (19:50)
[2017-05-04] MEDS ORDERED: ONDANSETRON INJ 2 MG/ML 2 ML VIAL IV STA (20:05)
--- NOTE | 2017-05-04 20:57 | Progress Note ---
Progress Note Date of Service May 04, 2017. Progress Note NIGHT RESIDENT Called to see pt due to persistent mental status changes and watery, dark stool. Reviewed chart, discussed with . She explained to me that his mental status changes had occurred in the past both times he was in the hospital - when he had bacterial meningitis it took 66 days for him to recover (this was in [place]). At baseline his mind is sharp and he does not have a hx of dementia. He also has a hx of IBS, and reports he never has issues passing stool. During this stay he had an ileus and had 7L removed through NG tube, which was dark / green liquid. Now he has a rectal tube and has watery dark / green liquid again. She reports he has previously had a colectomy by Dr Jacobson after he had bleeding after polypectomy. He has never had stool this color / consistency. She also showed me photos of his cellulitis today, which per records he had debrided today. O/E Pt awake, alert, then became sleepy and rested comfortably. He was able to tell me his full name and birthday, but is not oriented to place or time. VS: Afebrile, BP stable, HR 100-110 on monitor CVS: Irregularly irregular. No audible murmurs, rubs, gallops. Chest: CTAB. Abd: Soft, nontender. Normal bowel sounds. Ext: Left wrapped - asked me to not unwrap it today. No extension of this beyond the margins of the wrapping. R leg without erythema or edema. A: Acute metabolic encephalopathy - at this point treating as dehydration with fluid boluses. C Diff repeated today and was negative. He is sleeping comfortably now, and asked me not to wake him. Will re- assess in a few hours and potentially order head CT. 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
[2017-05-04] MEDS ORDERED: LORAZEPAM 2 MG/ML 1 ML VIAL IV STA (21:40)
[2017-05-04] MEDS ORDERED: OLANZAPINE ZYDIS 5 MG ORALLY DIS. TAB PO ONE (21:45)
[2017-05-05] VITALS (11 sets, daily range): BP systolic 98–145; BP diastolic 39–55; PULSE 63–102; TEMP 36.9–38.8; O2SAT 93–100
[2017-05-05] MEDS: D5W AND 1/2NSS + 20MEQ KCL 1,000 ML IV SCH (01:30)
[2017-05-05] MEDS ORDERED: METRONIDAZOLE / NSS 500 MG in PREMIXED NSS 100 ML IV STA (04:11)
[2017-05-05] MEDS ORDERED: SODIUM CHLORIDE 0.9% 500ML 500 ML IV SCH (04:15)
[2017-05-05 04:18] LABS: HEMATOCRIT 33.3 % (42-52); MEAN CELL VOLUME 88.3 fL (80-100); MEAN CORPUSCULAR HEMOGLOBIN 27.6 pg (25-34); PLATELET COUNT 197 K/uL (130-400); RED BLOOD COUNT 3.77 M/uL (4.7-6.1); WHITE BLOOD COUNT 10.07 K/uL (4.8-10.8)
[2017-05-05] MEDS: ACETAMINOPHEN IV 100 ML IV PRN ×2 (04:24→12:51)
[2017-05-05] MEDS: DAPTOmycin IV 800 MG in SODIUM CHLORIDE 0.9% 50ML 50 ML IV SCH (04:24)
[2017-05-05 04:27] LABS: INR 1.8 (0.9-1.1); PROTHROMBIN TIME (PATIENT) 19.7 SECONDS (9.0-12.0)
[2017-05-05 04:34] LABS: MEAN CORPUSCULAR HGB CONC 31.2 g/dl (32-36)
[2017-05-05 04:43] LABS: ALB/GLOB RATIO 0.6 (0.9-2); BUN/CREATININE RATIO 26.8 (10-20); C-REACTIVE PROTEIN 7.77 mg/dl (0-0.29); CREATININE 2.2 mg/dl (0.60-1.40); MAGNESIUM 2.6 mg/dl (1.8-2.4); PHOSPHORUS 2.6 mg/dl (2.5-4.9); POTASSIUM 3.9 mmol/L (3.5-5.1)
[2017-05-05 04:54] LABS: BASO ABS # 0.26 K/uL (0-0.2); BASOPHIL % 2.6 % (0-2); COMPLETE YES; DOHLE BODIES 1+; EOSINOPHIL % 2.6 %; LYMPH ABS # 1.23 K/uL (1.2-3.4); LYMPHOCYTE % 12.2 %; MYELOCYTE % 0.9 %; NEUTROPHILS % 71.3 %
[2017-05-05] MEDS: METRONIDAZOLE 500MG / NSS IV SCH ×3 (05:07→20:49)
[2017-05-05] MEDS: FAMOTIDINE IV INJ 20 MG in DEXTROSE 5% 100ML 100 ML IV SCH ×2 (05:07→17:05)
[2017-05-05] MEDS: LEVOTHYROXINE 25 MCG TAB PO SCH (06:41)
--- NOTE | 2017-05-05 07:02 | DIAGNOSTIC IMAGING REPORT ---
CHEST ONE VIEW PORTABLE HISTORY: Altered mental status. COMPARISON: Chest 04/30/2017. FINDINGS: The heart remains enlarged. No pneumothorax. Right jugular catheter terminates in the SVC. Right basilar linear densities have progressed. The left lung is clear. No evidence for pulmonary edema. IMPRESSION: Progressive right basilar linear densities. This may represent atelectasis. Stable cardiomegaly. Electronically signed by: Job Bailey M.D. 05/05/2017 7:01 AM Dictated Date/Time: 05/05/2017 6:59 AM
[2017-05-05] MEDS ORDERED: NURSING VERBAL MED ORDER ONE ×2 (07:45→20:45)
--- NOTE | 2017-05-05 07:48 | Family Medicine Progress Note ---
Progress Note Date of Service May 05, 2017. Subjective Pt evaluation today including: conversation w/ patient The patient was seen and examined at bedside. Pt became more agitated and delirious overnight got Ativan and Zyprexa. Pt spiked a fever as well. Abx were upgraded to Dapto and Flagyl by the night team. GI was also consulted - pt was putting out heme positive stool. C diff was repeated and empiric Flagyl was started. Overnight 2L out of the rectal tube and 175mLs of urine output. Na+ was 150 this AM. Electrolytes otherwise normal. On exam pt denies having any pain. Overnight chest X-ray showed no pleural effusions. Tele showed sinus rhythm overnight in the 90s and 100s. Patient is resting comfortably in bed. Still murmuring when responding. Examined at 7;30 AM, was not in the room. Nurse was updated with care plan to update the . * Abdo X-ray this AM* : No change in the distended loops of small bowel consistent with a small bowel obstruction. No pneumoperitoneum or pneumatosis identified. Stat surgical consult was placed. ROS: review of systems is negative but I'm not sure how reliable the ROS was, pt denies abdominal pain, chest pain, SOB. Constitutional: + fever, No chills, No weight loss Abdomen: + diarrhea, No pain, No nausea, No vomiting, No constipation Objective Physical Exam General Appearance: WD/WN, + obese Respiratory/Chest: chest non-tender, lungs clear, normal breath sounds, no respiratory distress, no accessory muscle use Cardiovascular: regular rate, rhythm, no edema, no gallop, no JVD, no murmur Abdomen: normal bowel sounds, non tender, soft, no organomegaly, no pulsatile mass, + pertinent finding (Abdomen is soft, non tender to deep palpation. ) Extremities: normal range of motion, non-tender, normal inspection, no pedal edema, + pertinent finding (dressing on left lower leg intact. Pt has a goode draining concentrated yellow urine and a rectal tube draining dark liquid material. ) Neurologic/Psychiatric: alert, + pertinent finding (not respondings to questions appropriately, no oriented to time person and place, pt is mumbling answers. ) Assessment and Plan 66Mpresented with fever and hypotension - diagnosed with sepsis secondary to cellulitis. Hospital course is complicated by a bowel obstruction which required NG tube placement. Pt has had loose stools during his entire admission with increasing frequency. C. Diff was repeated and continues to be negative. Pt does not have any signs of UTI. X-ray today showed worsening SBO. Stat surgical consult with Dr. Roberts - she does not believe pt has a SBO. We will due a CT Abdo and Pelvis with PO contrast. Fever with worsening mental status last night and worsening diarrhea - AMS from 05/04/17 continued - already on antibiotics. rocephin changed to 2gms, dapto and flagyl added. - unclear if has another source of infection - s/p zyprexa and lorazepam last night - hypernatremia - correction with quarter NS - Check CT head. To reassess and Consider LP Sepsis secondary to chronic left lower extremity cellulitis - Wound care on board, wound is improving albeit slowly. - Abx changed from 2g Rocephin daily, to Dapto and empiric Flagyl. - Pain control with Percocet and morphine as needed Dehydration - Cr 2.7-->2.3-->1.7-->2.2 - pt is likely dehydrated. - s/p three 1L normosol fluid boluses. - Per discussion with Dr. Godfrey, will rehydrate with 150mls/hr of D5 +1/4NSS + 2meq Kcl. Hypernatremia - 1/4 NSS - likely due to dehydration Bowel obstruction (recurrent?) - Repeat X-ray of the abdo showed distenstion, GI was consulted and an urgent surgical intervention was placed. We will image the abdomen to see if there is an obstruction. An NG tube will be placed and the pt will be made NPO. - Pt continues to have multiple loose heme positive dark BMs, C. Diff negative. - GI on board, appreciate their recommendations. Severe Diarrhea with heme positive stool - Continue empiric flagyl - For colonoscopy in AM - rectal tube in place History of several bacteremias/sepsis including meningitis, pneumonia, cellulitis: - Suspect any underlying complement/ immunoglobulin deficiency - Recommend outpatient workup Renal mass on CT: - stable since 2014 - will follow up with Dr. Francis at discharge Right adrenal gland nodule: - likely incidentaloma GI - PPI drip for heme positive stool. Asthma - continue montelukast GUS - continue CPAP at night Peripheral Neuropathy - continue pregabalin (renally dosed) Hypothyroidism - continue levothyroxine 25 mcg DVT Prophylaxis - heparin 5000 units SQ Q8H Disposition - Tele FULL CODE Resident Involvement: Resident Care Provided Care Provided: Adult Hospital Medicine Reviewed: Pt Seen/Exam by Me History confusion worse overnight. had fever. had many loose stools abx coverage broadened and received lorazepam and zyprexa overnight Respiratory: negative: short of breath Cardiovascular: denies chest pain Gastrointestinal/Abdominal: negative: abdominal pain General Appearance: no apparent distress (when seen this am. later - was restless in bed) Respiratory: lungs clear, no respiratory distress Cardiovascular: regular rate, rhythm Gastrointestinal: normal bowel sounds, non tender, soft Neurologic/Psychiatric: alert, oriented x 3, other (friends at bedside. patient able to hold converstion with them) Skin Characteristics: warm/dry Assessment/Plan Resident Physician Supervision Note: I was present with Dr. Hurtado in bedside. I verified the le history and physical, reviewed labs and image studies, discussed the case with the resident and agree with the findings and care plan.
[2017-05-05] MEDS ORDERED: NORMOSOL R 1,000 ML IV SCH (08:00)
[2017-05-05] MEDS ORDERED: PANTOprazole INJ 80 MG in DEXTROSE 5% 100ML IV SCH (08:30)
[2017-05-05] MEDS: CEROVITE ADV FORMULA TAB PO SCH (09:00)
[2017-05-05] MEDS: RANITIDINE HCL 150 MG TAB PO SCH (09:00)
[2017-05-05] MEDS: PREGABALIN 100 MG CAP PO SCH ×3 (09:00→20:35)
[2017-05-05] MEDS ORDERED: PANTOprazole INJ 40 MG in SYRINGE 0 ML IV SCH (09:00)
[2017-05-05] MEDS ORDERED: ASCORBIC ACID 500 MG/ML 50 ML VIAL IV SCH (09:00)
[2017-05-05] MEDS: SACCHAROMYCES BOUL (FLORASTOR) 250 MG CAP PO SCH ×2 (09:00→13:44)
[2017-05-05] MEDS ORDERED: CHOLESTYRAMINE LIGHT 4 GM PKT PO SCH (09:00)
[2017-05-05] MEDS: CHOLECALCIFEROL 1000 INTER.UNIT TAB PO SCH (09:00)
[2017-05-05] MEDS: PANTOprazole INJ 40 MG in DEXTROSE 5% 100ML IV SCH ×3 (09:01→18:40)
[2017-05-05] MEDS: ASCORBIC ACID IV SCH (09:06)
[2017-05-05] MEDS: SODIUM CHLORIDE 0.9% IV SCH (09:06)
[2017-05-05] MEDS ORDERED: PIPERACILL/TAZOBAC IV 4.5 GM in DEXTROSE 5% 100ML 100 ML IV SCH (10:00)
--- NOTE | 2017-05-05 10:15 | DIAGNOSTIC IMAGING REPORT ---
ABDOMEN 2 VIEWS HISTORY: rule out free air, fevers, diarrhea, heme positive stool COMPARISON: Abdomen and pelvis CT 05/01/2017. FINDINGS: Suboptimal evaluation of the abdomen due to the patient's large body habitus. There again noted multiple dilated gas-filled loops of small bowel seen throughout the abdomen. There is also gas within the colon and rectum. Findings favor a partial small bowel obstruction. The distended small bowel measures up to 4.8 cm. There is no pneumoperitoneum or pneumatosis. IMPRESSION: No change in the distended loops of small bowel consistent with a small bowel obstruction. No pneumoperitoneum or pneumatosis identified. Electronically signed by: Job Bailey M.D. 05/05/2017 10:14 AM Dictated Date/Time: 05/05/2017 10:10 AM
[2017-05-05 10:50] LABS: HEMATOCRIT 31.3 % (42-52)
--- NOTE | 2017-05-05 10:57 | Gastrointestinal Consultation ---
Gastrointestinal Consultation Date of Consultation: May 05, 2017 Attending Physician: Dr. Grissom Consulting Physician: Dr. Medina/AGNES Wheeler Reason for Consultation: Heme positive stool History of Present Illness Patient is a 66 year old male admitted to the hospital approximately one week ago with diarrhea and fevers as well as cellulitis with B strep bacteremia, sepsis and SIRS. He has had a complex hospital course and remains febrile despite broad spectrum antibiotic therapy. The patient has also been having persistent diarrhea up to 14 times per day per his who provides most of the history as the patient remains disoriented. He has been having ongoing mental status changes with combative behavior. ID has seen the patient. He has been noted to have multiple C Diff studies ordered, most recently as today which have been negative. Despite this, he is on Flagyl 500 mg IV every 8 hours to cover for possible C Diff infection. The reports the stools are dark and watery and have tested heme positive. He has been started on a PPI drip with Protonix in this regard. Also complicating his stay is a partial bowel obstruction. He did have a NGT which has since been removed. Repeat abdominal series from this am has revealed a persistent obstructive process. The patient is unable to provide much history but he denies any abdominal pain, nausea or vomiting. From review of laboratory testing, it appears his H&H has remained relatively stable at ~12 but did drop to 10.4 and 33.3 respectively today. Leukocytosis is resolving. He has been having persistent hypernatremia but resolved hypokalemia. He remains hypotensive, tachycardic and febrile with a temp of 38.0 this morning. Past Medical/Surgical History Medical Problems: (1) Anemia Status: Acute (2) Confusion Status: Acute (3) Diarrhea Status: Acute (4) GI bleed Status: Acute (5) Neuropathy Status: Chronic (6) Severe sepsis Status: Acute Past Surgical History: 1. Right hemicolectomy 2. Complete colonoscopy Family History Blood clots FH: diabetes mellitus FHx: pulmonary embolism Unable to obtain due to altered mental status Social History Smoking Status: Former Smoker Drug Use: none Marital Status: Housing Status: lives with family Occupation Status: retired Allergies Coded Allergies: Tetracycline (Verified Allergy, Unknown, SORES IN MOUTH, 04/26/17) Current Medications Home Meds and Scripts Medications Dose Route/Sig Max Daily Dose Days Date Category Viagra (Sildenafil Citrate) 50 Mg Tab 50 Mg PO PRN 04/26/17 Reported Aleve (Naproxen) 220 Mg Tab 440 Mg PO DAILY 04/26/17 Reported Percocet 10MG/325MG (Oxycodone/Acetaminophen) Tab 1 Tab PO TID PRN 03/18/16 Reported Nizatidine 150 Mg Cap 150 Mg PO HS 03/18/16 Reported Mvi With Minerals (Multivitamins/Minerals) Tab 1 Tab PO DAILY 03/18/16 Reported Singulair (Montelukast Sodium) 10 Mg Tab 10 Mg PO HS 03/18/16 Reported Colchicine 0.6 Mg Tab 0.3 Mg PO HS 03/18/16 Reported Biotin Unknown Strength Cap 1 Cap PO DAILY 03/18/16 Reported Aspirin Ec (Aspirin) 81 Mg Tab 81 Mg PO QPM 03/18/16 Reported Lisinopril 20 Mg Tab 20 Mg PO QAM 08/21/15 Reported Synthroid (Levothyroxine Sodium) 25 Mcg Tab 25 Mcg PO QAM 08/21/15 Reported Vitamin D 1000 Unit (Cholecalciferol) 1,000 Unit Cap 1,000 Inter.unit PO QAM 03/13/15 Reported Vitamin B Complex (B-Complex Vitamins) 1 Tab Tab 1 Tab PO QAM 03/13/15 Reported Lyrica (Pregabalin) 200 Mg Cap 200 Mg PO TID 03/13/15 Reported Review of Systems Unable to obtain as patient with altered mental status. Physical Exam Date Time Temp Pulse Resp B/P (MAP) Pulse Ox O2 Delivery O2 Flow Rate FiO2 05/05/17 06:59 38.0 95 23 121/39 (66) 97 Nasal Cannula 2.0 05/05/17 04:47 37.5 100 24 05/05/17 03:45 38.8 97 24 106/53 (70) 97 Nasal Cannula 2.0 05/05/17 03:30 Nasal Cannula 2.0 05/04/17 23:33 37.0 100 24 126/53 (77) 95 Nasal Cannula 2.0 05/04/17 23:30 Nasal Cannula 2.0 05/04/17 20:00 96 Nasal Cannula 2.0 05/04/17 19:20 37.0 69 20 127/68 (87) 94 Nasal Cannula 2.0 05/04/17 16:00 96 Nasal Cannula 2.0 05/04/17 16:00 36.8 98 20 139/68 (91) 96 Nasal Cannula 2.0 05/04/17 12:00 Room Air 05/04/17 11:33 37.4 97 23 144/61 (88) 92 Nasal Cannula 2.0 General Appearance: no apparent distress Eyes: EOMI ENT: hearing grossly normal Neck: supple Respiratory/Chest: + decreased breath sounds Cardiovascular: regular rate, rhythm, no murmur Abdomen: soft, + abnormal bowel sounds (decreased), + distended, + pertinent finding (no guarding or wincing with palpation) Extremities: + swelling Neurologic/Psych: + disoriented Skin: warm/dry Laboratory Results Last 24 Hours Test 05/04/17 12:30 05/04/17 17:38 05/05/17 03:40 05/05/17 04:05 Urine Color DK YELLOW Urine Appearance CLOUDY Urine pH 5.5 Urine Specific [place] 1.023 Urine Protein 2+ Urine Glucose (UA) NEG Urine Ketones TRACE Urine Occult Blood 2+ Urine Nitrite NEG Urine Bilirubin NEG Urine Urobilinogen NEG Urine Leukocyte Esterase TRACE Urine WBC (Auto) 1-5 /hpf Urine RBC (Auto) 5-10 /hpf Urine Hyaline Casts (Auto) 1-5 /lpf Urine Epithelial Cells (Auto) >30 /lpf Urine Bacteria (Auto) NEG Urine Renal Epithelial Cells 0-5 /lpf Urine Crystals AMORPHOUS SEDIMENT Urine Pathogenic Casts /lpf White Blood Count 13.39 K/uL 10.07 K/uL Red Blood Count 4.40 M/uL 3.77 M/uL Hemoglobin 12.2 g/dL 10.4 g/dL Hematocrit 38.0 % 33.3 % Mean Corpuscular Volume 86.4 fL 88.3 fL Mean Corpuscular Hemoglobin 27.7 pg 27.6 pg Mean Corpuscular Hemoglobin Concent 32.1 g/dl 31.2 g/dl Platelet Count 245 K/uL 197 K/uL Mean Platelet Volume 11.3 fL 11.0 fL RDW Standard Deviation 50.5 fL 52.8 fL RDW Coefficient of Variation 15.9 % 16.3 % Neutrophils % (Manual) 76.4 % 71.3 % Lymphocytes % (Manual) 9.6 % 12.2 % Monocytes % (Manual) 11.3 % 10.4 % Eosinophils % (Manual) 0.9 % 2.6 % Basophils % (Manual) 0.9 % 2.6 % Metamyelocytes % 0.9 % Neutrophils # (Manual) 10.23 K/uL 7.18 K/uL Total Absolute Neutrophils 10.23 K/uL 7.18 K/uL Lymphocytes # (Manual) 1.29 K/uL 1.23 K/uL Total Absolute Lymphocytes 1.29 K/uL 1.23 K/uL Monocytes # (Manual) 1.51 K/uL 1.05 K/uL Eosinophils # (Manual) 0.12 K/uL 0.26 K/uL Basophils # (Manual) 0.12 K/uL 0.26 K/uL Metamyelocytes # 0.12 K/uL Sodium Level 149 mmol/L 150 mmol/L Potassium Level 3.7 mmol/L 3.9 mmol/L Chloride Level 114 mmol/L 120 mmol/L Carbon Dioxide Level 29 mmol/L 27 mmol/L Anion Gap 6.0 mmol/L 3.0 mmol/L Blood Urea Nitrogen 59 mg/dl 59 mg/dl Creatinine 2.10 mg/dl 2.20 mg/dl Est Creatinine Clear Calc Drug Dose 44.4 ml/min 42.4 ml/min Estimated GFR () 36.4 34.4 Estimated GFR (Non- 31.4 29.7 BUN/Creatinine Ratio 28.1 26.8 Random Glucose 133 mg/dl 132 mg/dl Calcium Level 8.8 mg/dl 8.0 mg/dl Phosphorus Level 1.8 mg/dl 2.6 mg/dl Magnesium Level 2.6 mg/dl 2.6 mg/dl Stool Occult Blood POSITIVE Myelocytes % 0.9 % Myelocytes # 0.09 K/uL Dohle Bodies 1+ Prothrombin Time 19.7 SECONDS Prothromb Time International Ratio 1.8 Lactic Acid Level 1.4 mmol/L Total Bilirubin 0.4 mg/dl Aspartate Amino Transf (AST/SGOT) 16 U/L Alanine Aminotransferase (ALT/SGPT) 21 U/L Alkaline Phosphatase 59 U/L C-Reactive Protein 7.77 mg/dl Total Protein 5.8 gm/dl Albumin 2.2 gm/dl Globulin 3.6 gm/dl Albumin/Globulin Ratio 0.6 Test 05/05/17 10:31 Impression Patient is a 66 year old male admitted with fever, diarrhea and B step cellulitis with sepsis and SIRS with persistent small bowel obstruction and heme positive stool with negative stool studies. Plan 1. Stat surgery consult. Message was left for Alexis Moser PA-C to contact our service. He is in the OR at present. 2. NPO status. 3. Stop Questran powder due to obstructive process. 4. Continue Protonix gtt for GI prophylaxis. 5. Ensure NPO after midnight. Dr. Medina will determine need for endoscopic evaluation in the morning pending repeat CT imaging with oral enhancement as his H&H has further dropped. Agree with AGNES Wheeler as above Gen: Confused, agitated Abd: Soft, NT, ND, +BS Discussed case with Dr. Jose secondary to concerns regarding patient's Mental status change, Hypernatremia, fevers, and questionable SBO Also discussed case with Dr. Roberts of surgery who will order a CT scan of the abd with PO contrast Continue Protonix gtt at this time Will consider EGD tomorrow based on patient's overall health status. Consider transfer to ICU based on multiple medical issues
[2017-05-05] MEDS: D5W AND 1/4NSS + 20MEQ KCL 1,000 ML IV SCH ×2 (11:34→17:04)
--- NOTE | 2017-05-05 12:21 | Nephrology Progress Note ---
Nephrology Progress Note Date of Service May 05, 2017. Chief Complaint JERRY due to septic shock in the setting of NSAID / KULDIP inhibitor therapy Subjective Lethargic. Family present at bedside. Patient has been febrile overnight. He has required a rectal tube due to severe diarrhea. Stool for C. Difficile toxin has been negative. Abdomen has become more distended. KUB x-ray is c/w SBO. GI has evaluated Mr. Camacho and has requested surgical consultation. Review of Systems Unable to obtain ROS from patient due to lethargy Vital Signs Last 8 Hrs Date Time Temp Pulse Resp B/P (MAP) Pulse Ox O2 Delivery O2 Flow Rate FiO2 05/05/17 10:55 38.1 94 24 123/49 (73) 98 05/05/17 08:30 Nasal Cannula 2.0 05/05/17 06:59 38.0 95 23 121/39 (66) 97 Nasal Cannula 2.0 05/05/17 04:47 37.5 100 24 Last Recorded Weight Weight (Kilograms): 125.600 Physical Exam General Appearance: + pertinent finding (lethargic) Head: normocephalic, atraumatic Eyes: PERRL Respiratory/Chest: lungs clear (anteriorly) Cardiovascular: regular rate, rhythm Abdomen/GI: + distended, + pertinent finding (hypoactive bowel sounds) Genitourinary - Male: + pertinent finding (goode catheter in place draining dark yellow urine) Extremities/Musculoskelatal: no pedal edema Neurologic/Psych: + pertinent finding (lethargic) Family History Blood clots FH: diabetes mellitus FHx: pulmonary embolism Social History Drug Use: none Marital Status: Housing Status: lives with significant other Occupation: retired Laboratory Results Past 24 Hours 05/04/17 17:38 Red Blood Count 4.40, Mean Corpuscular Volume 86.4, Mean Corpuscular Hemoglobin 27.7, Mean Corpuscular Hemoglobin Concent 32.1, Mean Platelet Volume 11.3 05/05/17 04:05 Red Blood Count 3.77, Mean Corpuscular Volume 88.3, Mean Corpuscular Hemoglobin 27.6, Mean Corpuscular Hemoglobin Concent 31.2, Mean Platelet Volume 11.0 05/05/17 10:31 05/04/17 17:38 05/05/17 04:05 Test 05/04/17 12:30 05/04/17 17:38 05/05/17 03:40 05/05/17 04:05 Urine Color DK YELLOW Urine Appearance CLOUDY (CLEAR) Urine pH 5.5 (4.5-7.5) Urine Specific [place] 1.023 (1.000-1.030) Urine Protein 2+ (NEG) Urine Glucose (UA) NEG (NEG) Urine Ketones TRACE (NEG) Urine Occult Blood 2+ (NEG) Urine Nitrite NEG (NEG) Urine Bilirubin NEG (NEG) Urine Urobilinogen NEG (NEG) Urine Leukocyte Esterase TRACE (NEG) Urine WBC (Auto) 1-5 /hpf (0-5) Urine RBC (Auto) 5-10 /hpf (0-4) Urine Hyaline Casts (Auto) 1-5 /lpf (0-5) Urine Epithelial Cells (Auto) >30 /lpf (0-5) Urine Bacteria (Auto) NEG (NEG) Urine Renal Epithelial Cells 0-5 /lpf (0-5) Urine Crystals AMORPHOUS SEDIMENT (NONE Urine Pathogenic Casts /lpf (0) White Blood Count 13.39 K/uL (4.8-10.8) 10.07 K/uL (4.8-10.8) Red Blood Count 4.40 M/uL (4.7-6.1) 3.77 M/uL (4.7-6.1) Hemoglobin 12.2 g/dL (14.0-18.0) 10.4 g/dL (14.0-18.0) Hematocrit 38.0 % (42-52) 33.3 % (42-52) Mean Corpuscular Volume 86.4 fL (80-100) 88.3 fL (80-100) Mean Corpuscular Hemoglobin 27.7 pg (25-34) 27.6 pg (25-34) Mean Corpuscular Hemoglobin Concent 32.1 g/dl (32-36) 31.2 g/dl (32-36) Platelet Count 245 K/uL (130-400) 197 K/uL (130-400) Mean Platelet Volume 11.3 fL (7.4-10.4) 11.0 fL (7.4-10.4) RDW Standard Deviation 50.5 fL (36.4-46.3) 52.8 fL (36.4-46.3) RDW Coefficient of Variation 15.9 % (11.5-14.5) 16.3 % (11.5-14.5) Neutrophils % (Manual) 76.4 % 71.3 % Lymphocytes % (Manual) 9.6 % 12.2 % Monocytes % (Manual) 11.3 % 10.4 % Eosinophils % (Manual) 0.9 % 2.6 % Basophils % (Manual) 0.9 % (0-2) 2.6 % (0-2) Metamyelocytes % 0.9 % Neutrophils # (Manual) 10.23 K/uL (1.4-6.5) 7.18 K/uL (1.4-6.5) Total Absolute Neutrophils 10.23 K/uL (1.4-6.5) 7.18 K/uL (1.4-6.5) Lymphocytes # (Manual) 1.29 K/uL (1.2-3.4) 1.23 K/uL (1.2-3.4) Total Absolute Lymphocytes 1.29 K/uL (1.2-3.4) 1.23 K/uL (1.2-3.4) Monocytes # (Manual) 1.51 K/uL (0.11-0.59) 1.05 K/uL (0.11-0.59) Eosinophils # (Manual) 0.12 K/uL (0-0.5) 0.26 K/uL (0-0.5) Basophils # (Manual) 0.12 K/uL (0-0.2) 0.26 K/uL (0-0.2) Metamyelocytes # 0.12 K/uL (0-0) Anion Gap 6.0 mmol/L (3-11) 3.0 mmol/L (3-11) Est Creatinine Clear Calc Drug Dose 44.4 ml/min 42.4 ml/min Estimated GFR () 36.4 34.4 Estimated GFR (Non- 31.4 29.7 BUN/Creatinine Ratio 28.1 (10-20) 26.8 (10-20) Calcium Level 8.8 mg/dl (8.5-10.1) 8.0 mg/dl (8.5-10.1) Phosphorus Level 1.8 mg/dl (2.5-4.9) 2.6 mg/dl (2.5-4.9) Magnesium Level 2.6 mg/dl (1.8-2.4) 2.6 mg/dl (1.8-2.4) Stool Occult Blood POSITIVE (NEGATIVE) Myelocytes % 0.9 % Myelocytes # 0.09 K/uL (0-0) Dohle Bodies 1+ Prothrombin Time 19.7 SECONDS (9.0-12.0) Prothromb Time International Ratio 1.8 (0.9-1.1) Lactic Acid Level 1.4 mmol/L (0.4-2.0) Total Bilirubin 0.4 mg/dl (0.2-1) Aspartate Amino Transf (AST/SGOT) 16 U/L (15-37) Alanine Aminotransferase (ALT/SGPT) 21 U/L (12-78) Alkaline Phosphatase 59 U/L (45-117) C-Reactive Protein 7.77 mg/dl (0-0.29) Total Protein 5.8 gm/dl (6.4-8.2) Albumin 2.2 gm/dl (3.4-5.0) Globulin 3.6 gm/dl (2.5-4.0) Albumin/Globulin Ratio 0.6 (0.9-2) Date/Time Source Procedure Growth Status 05/05/17 06:15 Stool C.difficile Toxin B Gene (PCR) - Final No C. difficile toxin B gene detected Complete Allergies Coded Allergies: Tetracycline (Verified Allergy, Unknown, SORES IN MOUTH, 04/26/17) Medications Current Inpatient Medications Medications (Trade) Dose Ordered Sig/[place] Route Start Time Stop Time Status Last Admin Dose Admin Aspirin (Ecotrin Tab) 81 mg QPM PO 04/27/17 21:00 05/27/17 20:59 05/04/17 19:50 81 MG Cholecalciferol (Vitamin D Tab) 1,000 inter.unit QAM PO 04/27/17 09:00 05/27/17 08:59 05/04/17 07:50 1,000 INTER.UNIT Levothyroxine Sodium (Synthroid Tab) 25 mcg DAILYBB PO 04/27/17 06:00 05/27/17 05:59 05/04/17 05:54 25 MCG Montelukast Sodium (Singulair Tab) 10 mg HS PO 04/27/17 21:00 05/27/17 20:59 05/04/17 19:50 10 MG Multivitamins/ Minerals (Multivitamin W/ Minerals Tab) 1 tab DAILY PO 04/27/17 09:00 05/27/17 08:59 05/04/17 07:51 1 TAB Heparin Sodium (Porcine) (Heparin Sq 5000 Unit/0.5ml) 5,000 unit Q8 SQ 04/27/17 06:00 05/27/17 05:59 Future Hold 05/04/17 14:22 5,000 UNIT Heparin Sodium (Porcine) (Heparin 10 Unit/ ml 5 ml Flush) 5 ml PRN PRN FLUSH 04/28/17 01:30 05/28/17 01:29 05/05/17 10:46 5 ML Ranitidine HCl (zANTac TAB) 150 mg QAM PO 04/29/17 09:00 05/29/17 08:59 05/04/17 07:51 150 MG Pregabalin (Lyrica Cap) 100 mg TID PO 04/28/17 14:00 05/28/17 13:59 05/04/17 19:48 100 MG Acetaminophen (Tylenol Tab) 650 mg TID PRN PO 04/29/17 21:00 05/29/17 08:59 Oxycodone/ Acetaminophen (Percocet 10-325MG Tab) 1 tab Q4 PRN PO 04/29/17 20:00 05/10/17 22:59 05/04/17 19:49 1 TAB Ondansetron HCl (Zofran Odt) 4 mg Q8H PRN PO 04/30/17 08:45 05/30/17 08:44 Saccharomyces Boulardii (Florastor Cap) 250 mg TID PO 05/04/17 14:00 06/03/17 13:59 05/04/17 19:51 250 MG Acetaminophen 100 ml @ 400 mls/hr Q8H PRN IV 05/05/17 04:00 06/04/17 03:59 05/05/17 04:24 400 MLS/HR Daptomycin 800 mg/ Sodium Chloride 66 ml @ 100 mls/hr DAILY@0600 IV 05/05/17 04:30 05/07/17 04:29 05/05/17 04:24 100 MLS/HR Famotidine 20 mg/ Dextrose 102 ml @ 200 mls/hr Q12H IV 05/05/17 05:00 06/04/17 04:59 05/05/17 05:07 200 MLS/HR Metronidazole 500 mg/Prmx 100 ml @ 100 mls/hr Q8H IV 05/05/17 05:00 05/19/17 04:59 05/05/17 05:07 100 MLS/HR Pantoprazole Sodium 40 mg/ Dextrose 100 ml @ 20 mls/hr Q5H IV 05/05/17 09:00 06/04/17 08:59 05/05/17 09:01 20 MLS/HR Ascorbic Acid 500 mg/Sodium Chloride 101 ml @ 202 mls/hr DAILY IV 05/05/17 09:00 06/04/17 08:59 05/05/17 09:06 202 MLS/HR Potassium Chloride/Dextrose/ Sod Cl 1,000 ml @ 150 mls/hr Q6H40M IV 05/05/17 11:00 06/04/17 10:59 05/05/17 11:34 150 MLS/HR Impression (1) ATN (acute tubular necrosis) (2) Acute renal insufficiency (3) Hypokalemia (4) Septic shock (5) Calculus Of Kidney (6) Septicemia due to group B Streptococcus (7) Cellulitis Mr. Zurdo Camacho is a 66 year-old male with non oliguric acute renal injury consistent with multifactorial ATN. He was admitted with diarrhea and septic shock from group B step bacteremia with cellulitis. Baseline creatinine ~1.4 mg/dL consistent with CKD III. Creatinine increased to 3.2 mg/ dL on 05/01/17. 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 ATN is likely both ischemic and septic complicated by NSAID and KULDIP use and iodinated contrast exposure on admission. Renal imaging has revealed a 15 mm R renal mass as well as non obstructing left renal calculi. There is no evidence of obstructive nephropathy. UA was notable for 3+ protein. Urine microscopy was acellular. Kidney function is again deteriorating. Patient has severe diarrhea and SBO Recommendations JERRY/ATN: -- Patient is nonoliguric. -- Monitor serial PRP HYPERNATREMIA: -- Patient has significant free water loss due to fever and diarrhea -- Change Plasmalyte to D5 0.25NS at 150 cc/hr -- Monitor serial PRP GI: -- Gastroenterology recommendations reviewed today -- Await General Surgery evaluation RENAL MASS: -- Outpatient follow up with Dr. Francis CELLULITIS: -- LLE cellulitis is clinically improved -- IV antibiotics as per primary service
[2017-05-05] MEDS ORDERED: SODIUM CHLORIDE 0.9% 1000ML 1,000 ML IV SCH (12:51)
[2017-05-05] MEDS ORDERED: HYDROCODONE/ACETAMOPHEN 5/325MG TAB PO PRN ×2 (13:00)
--- NOTE | 2017-05-05 13:41 | Surgery Consultation ---
Consultation Date of Consultation: May 05, 2017. Attending Physician: Snow Jose M.D. Reason for Consultation: Small Bowl Obstruction (Eva Paz ., YONATAN) History of Present Illness Zurdo is a 66 year-old male who presented to emergency department on with complaint of fever, chills, and diarrhea that began the day prior. Intermittent fever for 5 days. Zurdo has a history of left lower extremity cellulitis and felt his leg to be warmer than usual. He has chronic diarrhea from IBS as well as right hemicolectomy (for massive GI bleed in 2014 after polypectomy x 3,). He was given IV fluid resuscitation in the emergency department however became hypotensive and required ICU admission with vasopressors. He was found to be septic with positive blood cultures of gram positive cocci and was started on IV antibiotics. The source of infection was felt to be due to his cellulitis as CT scan of abdomen and pelvis showed no signs of bowel obstruction or perforation. In the ICU he developed an Ileus with vomiting and had an NGT placed in which over 8 Liters of brownish fluid was removed via NGT. On 05/01/[address] scan of abdomen and pelvis which showed findings of high grade partial bowel obstruction with transition point in the right lower abdomen. The NGT was then removed on 05/03/2017 and diet was advanced slowly. Most of history was obtained by and medical chart as patient is disoriented , lethargic, sleeping, and confused. Starting yesterday (05/04/17) states he began to become more irritable and disoriented and agitated. He never complained of abdominal pain. Has not had any vomiting since NGT was removed. Has had massive amounts of dark liquid stool which has been increasing in severity over the last few days. The stool has been check for c. diff on three multiple occasions which have been negative. Hemoccult stool today was positive. His states he has had history of heartburn in the past and takes Nizatidine at nighttime. NO history of previous GI Bleeding prior to his GI bleed in 2014. No history of peptic ulcer disease. No family history of ulcer disease or gastric cancer. She states he does take 81 mg of aspirin daily as well as 2 tablets of Naproxen daily for years for chronic pain. He has had no other surgeries in the abdomen other than the right hemicolectomy. No blood thinning agents. He had an abdominal xray today which showed findings of dilated small bowel up to 4.8 cm in diameter with gas in the colon and rectum consistent with persistent Partial small bowel obstruction. White count today normalized at 10.07 (yesterday 13.39) Hemoglobin and Hematocrit have been dropping Yesterday was 12.2/38.0, early this morning was 10.4/33.3 and repeat at 10:30 am today showed h&H of 9.6/31.3. Lactic acid normal this morning at 1.4 Vitals show tachycardic in the 90's however BP has been stable (Eva Paz PA-C) Past Medical/Surgical History Medical History: 1. Bacterial Meningitis 2. Skin Cancer 3. Aortic Stenosis 4. Hypertension 5. GERD 6. Hypothyroidism 7. Left leg cellulitis/edema 8. Chronic Back pain 9. left Foot drop 10. Neuropathy 11. Obstructive sleep apnea 12. Asthma 13. Benign Back tumor 14. Colonic Polyps 15. Bacteremia Past Surgical History: 1. Right Hemicolectomy 2. Back Surgery for Benign Tumor 3. Right Knee arthroscopy 4. Skin cancer resection (nose) (Eva Paz PA-C) Family History Blood clots FH: diabetes mellitus FHx: pulmonary embolism (Eva Paz PA-C) Blood clots FH: diabetes mellitus FHx: pulmonary embolism (Akanksha Roberts MD) Social History Smoking Status: Former Smoker Drug Use: none Marital Status: Housing Status: lives with family Occupation Status: retired (Eva Paz PA-C) Allergies Coded Allergies: Tetracycline (Verified Allergy, Unknown, SORES IN MOUTH, 04/26/17) Home Medications Scheduled Aspirin (Aspirin Ec), 81 MG PO QPM B-Complex Vitamins (Vitamin B Complex), 1 TAB PO QAM Biotin (Biotin), 1 CAP PO DAILY Cholecalciferol (Vitamin D 1000 Unit), 1,000 INTER.UNIT PO QAM Colchicine (Colchicine), 0.3 MG PO HS Levothyroxine Sodium (Synthroid), 25 MCG PO QAM Lisinopril (Lisinopril), 20 MG PO QAM Montelukast Sodium (Singulair), 10 MG PO HS Multivitamins/Minerals (Mvi With Minerals), 1 TAB PO DAILY Naproxen (Aleve), 440 MG PO DAILY Nizatidine (Nizatidine), 150 MG PO HS Pregabalin (Lyrica), 200 MG PO TID Sildenafil Citrate (Viagra), 50 MG PO PRN Scheduled PRN Oxycodone/Acetaminophen 10MG/325MG (Percocet 10MG/325MG), 1 TAB PO TID PRN for Pain Current Inpatient Medications Current Inpatient Medications Medications (Trade) Dose Ordered Sig/[place] Route Start Time Stop Time Status Last Admin Dose Admin Aspirin (Ecotrin Tab) 81 mg QPM PO 04/27/17 21:00 05/27/17 20:59 05/04/17 19:50 81 MG Cholecalciferol (Vitamin D Tab) 1,000 inter.unit QAM PO 04/27/17 09:00 05/27/17 08:59 05/04/17 07:50 1,000 INTER.UNIT Levothyroxine Sodium (Synthroid Tab) 25 mcg DAILYBB PO 04/27/17 06:00 05/27/17 05:59 05/04/17 05:54 25 MCG Montelukast Sodium (Singulair Tab) 10 mg HS PO 04/27/17 21:00 05/27/17 20:59 05/04/17 19:50 10 MG Multivitamins/ Minerals (Multivitamin W/ Minerals Tab) 1 tab DAILY PO 04/27/17 09:00 05/27/17 08:59 05/04/17 07:51 1 TAB Heparin Sodium (Porcine) (Heparin Sq 5000 Unit/0.5ml) 5,000 unit Q8 SQ 04/27/17 06:00 05/27/17 05:59 Future Hold 05/04/17 14:22 5,000 UNIT Heparin Sodium (Porcine) (Heparin 10 Unit/ ml 5 ml Flush) 5 ml PRN PRN FLUSH 04/28/17 01:30 05/28/17 01:29 05/05/17 10:46 5 ML Ranitidine HCl (zANTac TAB) 150 mg QAM PO 04/29/17 09:00 05/29/17 08:59 05/04/17 07:51 150 MG Pregabalin (Lyrica Cap) 100 mg TID PO 04/28/17 14:00 05/28/17 13:59 05/04/17 19:48 100 MG Acetaminophen (Tylenol Tab) 650 mg TID PRN PO 04/29/17 21:00 05/29/17 08:59 Oxycodone/ Acetaminophen (Percocet 10-325MG Tab) 1 tab Q4 PRN PO 04/29/17 20:00 05/10/17 22:59 05/04/17 19:49 1 TAB Ondansetron HCl (Zofran Odt) 4 mg Q8H PRN PO 04/30/17 08:45 05/30/17 08:44 Saccharomyces Boulardii (Florastor Cap) 250 mg TID PO 05/04/17 14:00 06/03/17 13:59 05/04/17 19:51 250 MG Acetaminophen 100 ml @ 400 mls/hr Q8H PRN IV 05/05/17 04:00 06/04/17 03:59 05/05/17 12:51 400 MLS/HR Daptomycin 800 mg/ Sodium Chloride 66 ml @ 100 mls/hr DAILY@0600 IV 05/05/17 04:30 05/07/17 04:29 05/05/17 04:24 100 MLS/HR Famotidine 20 mg/ Dextrose 102 ml @ 200 mls/hr Q12H IV 05/05/17 05:00 06/04/17 04:59 05/05/17 05:07 200 MLS/HR Metronidazole 500 mg/Prmx 100 ml @ 100 mls/hr Q8H IV 05/05/17 05:00 05/19/17 04:59 05/05/17 12:51 100 MLS/HR Pantoprazole Sodium 40 mg/ Dextrose 100 ml @ 20 mls/hr Q5H IV 05/05/17 09:00 06/04/17 08:59 05/05/17 09:01 20 MLS/HR Ascorbic Acid 500 mg/Sodium Chloride 101 ml @ 202 mls/hr DAILY IV 05/05/17 09:00 06/04/17 08:59 05/05/17 09:06 202 MLS/HR Potassium Chloride/Dextrose/ Sod Cl 1,000 ml @ 150 mls/hr Q6H40M IV 05/05/17 11:00 06/04/17 10:59 05/05/17 11:34 150 MLS/HR (Eva Paz ., YONATAN) Review of Systems review of systems could not be obtained given patient was confused and disoriented He stated he was not having any abdominal pain when asked Please refer to HPI, most questions answered by (Eva Paz ., YONATAN) Physical Exam Date Time Temp Pulse Resp B/P (MAP) Pulse Ox O2 Delivery O2 Flow Rate FiO2 05/05/17 12:20 Nasal Cannula 2.0 05/05/17 10:55 38.1 94 24 123/49 (73) 98 05/05/17 08:30 Nasal Cannula 2.0 05/05/17 06:59 38.0 95 23 121/39 (66) 97 Nasal Cannula 2.0 05/05/17 04:47 37.5 100 24 05/05/17 03:45 38.8 97 24 106/53 (70) 97 Nasal Cannula 2.0 05/05/17 03:30 Nasal Cannula 2.0 05/04/17 23:33 37.0 100 24 126/53 (77) 95 Nasal Cannula 2.0 05/04/17 23:30 Nasal Cannula 2.0 05/04/17 20:00 96 Nasal Cannula 2.0 05/04/17 19:20 37.0 69 20 127/68 (87) 94 Nasal Cannula 2.0 05/04/17 16:00 96 Nasal Cannula 2.0 05/04/17 16:00 36.8 98 20 139/68 (91) 96 Nasal Cannula 2.0 General Appearance: no apparent distress, + obese, + pertinent finding ( lethargic, disoriented, agitated) Head: normocephalic, atraumatic Eyes: sclerae normal Neck: trachea midline, + pertinent finding (Right IJ Triple Lumen catheter present, no surrounding erythema) Respiratory/Chest: lungs clear, no respiratory distress, no accessory muscle use Cardiovascular: no murmur, + tachycardia (90's on monitor) Abdomen/GI: non tender (no peritonitis or rigidity), soft, + abnormal bowel sounds (hypoactive), + distended (mild distention), + hernia (umbilical hernia completely reducible, slight discomfort on palpation) Extremities/Musculoskelatal: no pedal edema, + pertinent finding (dressing around left lower extremity) Neurologic/Psych: + disoriented Skin: normal color, warm/dry, no rash (Eva Paz ., YONATAN) Laboratory Results Last 24 Hours Test 05/04/17 17:38 05/05/17 03:40 05/05/17 04:05 05/05/17 10:31 White Blood Count 13.39 K/uL 10.07 K/uL Red Blood Count 4.40 M/uL 3.77 M/uL Hemoglobin 12.2 g/dL 10.4 g/dL 9.6 g/dL Hematocrit 38.0 % 33.3 % 31.3 % Mean Corpuscular Volume 86.4 fL 88.3 fL Mean Corpuscular Hemoglobin 27.7 pg 27.6 pg Mean Corpuscular Hemoglobin Concent 32.1 g/dl 31.2 g/dl Platelet Count 245 K/uL 197 K/uL Mean Platelet Volume 11.3 fL 11.0 fL RDW Standard Deviation 50.5 fL 52.8 fL RDW Coefficient of Variation 15.9 % 16.3 % Neutrophils % (Manual) 76.4 % 71.3 % Lymphocytes % (Manual) 9.6 % 12.2 % Monocytes % (Manual) 11.3 % 10.4 % Eosinophils % (Manual) 0.9 % 2.6 % Basophils % (Manual) 0.9 % 2.6 % Metamyelocytes % 0.9 % Neutrophils # (Manual) 10.23 K/uL 7.18 K/uL Total Absolute Neutrophils 10.23 K/uL 7.18 K/uL Lymphocytes # (Manual) 1.29 K/uL 1.23 K/uL Total Absolute Lymphocytes 1.29 K/uL 1.23 K/uL Monocytes # (Manual) 1.51 K/uL 1.05 K/uL Eosinophils # (Manual) 0.12 K/uL 0.26 K/uL Basophils # (Manual) 0.12 K/uL 0.26 K/uL Metamyelocytes # 0.12 K/uL Sodium Level 149 mmol/L 150 mmol/L Potassium Level 3.7 mmol/L 3.9 mmol/L Chloride Level 114 mmol/L 120 mmol/L Carbon Dioxide Level 29 mmol/L 27 mmol/L Anion Gap 6.0 mmol/L 3.0 mmol/L Blood Urea Nitrogen 59 mg/dl 59 mg/dl Creatinine 2.10 mg/dl 2.20 mg/dl Est Creatinine Clear Calc Drug Dose 44.4 ml/min 42.4 ml/min Estimated GFR () 36.4 34.4 Estimated GFR (Non- 31.4 29.7 BUN/Creatinine Ratio 28.1 26.8 Random Glucose 133 mg/dl 132 mg/dl Calcium Level 8.8 mg/dl 8.0 mg/dl Phosphorus Level 1.8 mg/dl 2.6 mg/dl Magnesium Level 2.6 mg/dl 2.6 mg/dl Stool Occult Blood POSITIVE Myelocytes % 0.9 % Myelocytes # 0.09 K/uL Dohle Bodies 1+ Prothrombin Time 19.7 SECONDS Prothromb Time International Ratio 1.8 Lactic Acid Level 1.4 mmol/L Total Bilirubin 0.4 mg/dl Aspartate Amino Transf (AST/SGOT) 16 U/L Alanine Aminotransferase (ALT/SGPT) 21 U/L Alkaline Phosphatase 59 U/L C-Reactive Protein 7.77 mg/dl Total Protein 5.8 gm/dl Albumin 2.2 gm/dl Globulin 3.6 gm/dl Albumin/Globulin Ratio 0.6 (Eva Paz ., PA-C) Assessment & Plan Partial Small Bowel Obstruction GI Bleed Altered Mental Status - no leukocytosis - febrile overnight - acute change in mental status from Thursday, disoriented, agitated - Lactic acid within normal limits - Large amounts of black liquid stool, H&H dropping 12.2/38 (yesterday) to 9.6/31.3 (today), Hemoccult positive - Last CT scan of abdomen on pelvis on 05/01/17 showed high grade partial bowel obstruction with transition point in RLQ however no oral contrast given, NGT has been removed since and has had no vomiting, tolerated clear liquids on Thursday without difficulty. - Abdomen slightly distended, completely soft, no rebound, guarding ( voluntary or involuntary), or peritonitis Plan: Dr. Roberts discussed patient's status and examination with Dr. Medina as well as Dr. Jose. Recommend repeating CT scan of abdomen and pelvis with PO contrast to further evaluate level of bowel obstruction. Will need placement of NGT for PO contrast administration given patient's current mental status. Recommend further evaluation with GI for possible endoscopy due to drop in hemoglobin and massive amounts of black stool. Continue current medical management will follow Dr. Roberts has seen and examined patient. (Eva Paz ., YNOATAN) Mr. Camacho was seen with AIDA Rosales and personally examined. Chart reviewed. Agree with history and physical as above. He had a CT scan on 05/01 showing a high grade small bowel obstruction with transition point (no PO contrast). Since that time, his abdomen has been less distended, ng was removed , no nausea/ vomiting, was tolerating clear liquids. As per his , he has continued to have loose stools which have increased significantly in number and are black/ heme positive. H/H is continuing to drift lower c/w GI bleeding from some source. Also now has a fever and mental confusion again. He does have a history significant for bacterial meningitis in the past. Lactate is normal. WBC count is normal (from high of 25 when admitted with cellulitis on his leg and sepsis). His abdominal exam is benign - bowel tones are present, soft, not apparently tender, no guarding, minimal distention, reducible umbilical hernia, prior midline incision. I do not think the source of his current issues is a bowel obstruction. However , to rule this out, it is reasonable to do a CT scan with PO contrast. This may require ng placement for deliverance of the contrast as he is confused and combative currently (as per ) and unlikely to drink. He would benefit from consideration of endoscopies to find his source of bleeding - this was discussed with Dr. Medina who will review Mr. Camacho's clinical condition. No urgent need for surgical intervention at this time. (Akanksha Roberts MD)
[2017-05-05] MEDS ORDERED: OLANZAPINE ZYDIS 5 MG ORALLY DIS. TAB PO ONE ×2 (15:00→21:45)
[2017-05-05 16:23] LABS: HEMATOCRIT 31.6 % (42-52)
--- NOTE | 2017-05-05 16:39 | DIAGNOSTIC IMAGING REPORT ---
CT SCAN OF THE BRAIN WITHOUT IV CONTRAST CLINICAL HISTORY: Mental status change. COMPARISON STUDY: CT of the brain dated 04/26/2017. TECHNIQUE: Unenhanced axial CT scan of the brain is performed from the vertex to the skull base. CT DOSE: 1647.88 mGycm FINDINGS: Brain parenchyma: There are age-related involutional changes noting mild subcortical and periventricular microangiopathic change. There is no hemorrhage, mass effect, or evidence of acute territorial ischemia by CT criteria. Aguilera-white matter is preserved. No extra-axial fluid collection is seen. Ventricles, sulci, cisterns: Prominent secondary to involutional change. Intracranial vasculature: There is atherosclerotic calcification of the cavernous carotid and vertebral arteries. Calvarium: Unremarkable. Sinuses and mastoids: Trace mucosal thickening is seen in the left maxillary antrum. The remaining visualized paranasal sinuses are clear. There is a large left mastoid effusion. The right mastoid air cells are well pneumatized. Orbits: The bony orbits are grossly intact. There is a left ocular lens implant. Soft tissues: A 1.9 cm sebaceous cyst is noted in the left parietal scalp. IMPRESSION: 1. There is no hemorrhage, mass effect, or evidence of acute territorial ischemia by CT criteria. There has been no significant change from 04/26/2017. 2. Large left mastoid effusion. Electronically signed by: Lucas Guadalupe M.D. 05/05/2017 4:38 PM Dictated Date/Time: 05/05/2017 4:35 PM
--- NOTE | 2017-05-05 16:55 | DIAGNOSTIC IMAGING REPORT ---
CT SCAN OF THE ABDOMEN AND PELVIS WITHOUT IV CONTRAST CLINICAL HISTORY: Follow-up small bowel obstruction. COMPARISON STUDY: Abdominal CT dated 05/01/2017. TECHNIQUE: CT scan of the abdomen and pelvis is performed from the lung bases to the proximal femora. Images are reviewed in the axial, sagittal, and coronal planes. IV contrast was not administered for this examination as per the referring clinician. Note that the examination was performed in significantly suboptimal examination without IV contrast. The Examination is also degraded by large body habitus, and by streak artifact from the patient's body wall abutting the CT gantry. Automated dose control exposure was utilized. A dose lowering technique was utilized adhering to the principles of ALARA. CT DOSE: 1427.71 mGycm FINDINGS: Lung bases: The heart is enlarged and there is a small pericardial effusion. The coronary arteries and aortic valve leaflets are calcified. The lung bases are clear noting dependent atelectasis. There is a small hiatal hernia. Liver: The unenhanced liver is normal in size and contour. The liver demonstrates diffusely diminished attenuation consistent with hepatic steatosis. Fatty sparing is seen adjacent to gallbladder fossa. There is no intrahepatic biliary ductal dilatation. Gallbladder: Layering gallstones are suspected. Spleen: Normal in size and attenuation. Pancreas: The unenhanced pancreas is atrophic and grossly unremarkable. Adrenal glands: An indeterminant 2.0 cm right adrenal nodule is unchanged. The left adrenal gland is normal in appearance. Kidneys: The unenhanced kidneys are atrophic and without hydronephrosis. There is a 13 mm nonobstructing calculus/calculi present in the lower pole of the left kidney. There are no right renal calculi identified. A 5.4 cm exophytic cyst arises from the anterior aspect of the left kidney. A 1.7 cm hyperdense lesion arising from the interpolar left kidney on image #253 is unchanged. This is pathologically indeterminant but likely represents a complex/hemorrhagic cyst. Additional indeterminant hypodensities are seen in the right kidney. Abdominal vasculature: The abdominal aorta is normal in course and caliber noting advanced atherosclerotic calcification. Bowel: A rectal tube is in place. Postoperative change is suggested in the right colon. The proximal small bowel loops are distended and fluid-filled, measuring up to 4.4 cm in transverse diameter. Enteric contrast reaches the mid jejunum. The small bowel gradually decrease is in caliber, and the distal small bowel as well as the colon are decompressed. A discrete transition point is not identified. No focally thick walled bowel loops are identified. There is no pneumatosis intestinalis or portal venous gas. Peritoneum: Trace fluid is seen in the left paracolic gutter. No intraperitoneal free air is identified. There is a fat-containing umbilical hernia seen on image #370. Lymphadenopathy: There are mildly enlarged left iliac chain lymph nodes. These measure up to 1.6 cm in short axis. No retroperitoneal or mesenteric lymphadenopathy is seen. There is an enlarged gastrohepatic node seen on image #130 which measures 1.7 cm in short axis. Pelvic viscera: The bladder is decompressed around a Rodriguez catheter and not well evaluated. The prostate gland is diminutive. There is a fat-containing right inguinal hernia. Skeletal structures: The skeletal structures are osteopenic. There is moderate lumbosacral spondylosis. Postoperative change is identified in the thoracic and lumbar spine. No lytic or blastic lesions are seen. IMPRESSION: 1. Significantly suboptimal examination without IV contrast. 2. The proximal small bowel loops are distended and fluid-filled. This gradually tapers in caliber, and the distal small bowel as well as the colon are decompressed. A discrete transition point is not identified. This suggests some degree of small bowel obstruction. Clinical correlation will be required. 3. There is trace fluid in the left paracolic gutter. No intraperitoneal free air is seen, and there are no focally thick walled bowel loops identified. 4. Hepatic steatosis. 5. Cardiomegaly. 6. Nonobstructing left renal calculus. 7. There are mildly enlarged gastrohepatic and left iliac chain lymph nodes. These are of indeterminant etiology and significance. 8. An indeterminant right adrenal nodule is unchanged. 9. Additional findings as above. Electronically signed by: Lucas Guadalupe M.D. 05/05/2017 4:54 PM Dictated Date/Time: 05/05/2017 4:38 PM
[2017-05-05 16:56] LABS: BUN/CREATININE RATIO 26.3 (10-20); CALCIUM 7.9 mg/dl (8.5-10.1); POTASSIUM 3.7 mmol/L (3.5-5.1)
--- NOTE | 2017-05-05 17:24 | Progress Note ---
Progress Note Date of Service May 05, 2017. Progress Note CT with PO contrast done - no discrete transition point although small bowel is dilated until mid jejunum and then gradual decompression. No bowel wall thickening. May have partial sbo vs ileus. Would follow xrays to see progression of contrast into colon. No need for surgical intervention currently.
--- NOTE | 2017-05-05 18:51 | Infectious Disease Progress Nt ---
Progress Note Date of Service May 05, 2017. Subjective Pt evaluation today including: conversation w/ patient, physical exam, chart review, lab review, review of studies, conversation w/ residential solar consultant, review of inpatient medication list Remains confused. Still with severe diarrhea. Blood cultures negative. C. diff negative, urinalysis benign, culture pending. All Other Systems: Reviewed and Negative Medications Current Inpatient Medications Medications (Trade) Dose Ordered Sig/[place]onte Route Start Time Stop Time Status Last Admin Dose Admin Aspirin (Ecotrin Tab) 81 mg QPM PO 04/27/17 21:00 05/27/17 20:59 05/04/17 19:50 81 MG Cholecalciferol (Vitamin D Tab) 1,000 inter.unit QAM PO 04/27/17 09:00 05/27/17 08:59 05/04/17 07:50 1,000 INTER.UNIT Levothyroxine Sodium (Synthroid Tab) 25 mcg DAILYBB PO 04/27/17 06:00 05/27/17 05:59 05/04/17 05:54 25 MCG Montelukast Sodium (Singulair Tab) 10 mg HS PO 04/27/17 21:00 05/27/17 20:59 05/04/17 19:50 10 MG Multivitamins/ Minerals (Multivitamin W/ Minerals Tab) 1 tab DAILY PO 04/27/17 09:00 05/27/17 08:59 05/04/17 07:51 1 TAB Heparin Sodium (Porcine) (Heparin Sq 5000 Unit/0.5ml) 5,000 unit Q8 SQ 04/27/17 06:00 05/27/17 05:59 Future Hold 05/04/17 14:22 5,000 UNIT Heparin Sodium (Porcine) (Heparin 10 Unit/ ml 5 ml Flush) 5 ml PRN PRN FLUSH 04/28/17 01:30 05/28/17 01:29 05/05/17 10:46 5 ML Ranitidine HCl (zANTac TAB) 150 mg QAM PO 04/29/17 09:00 05/29/17 08:59 05/04/17 07:51 150 MG Pregabalin (Lyrica Cap) 100 mg TID PO 04/28/17 14:00 05/28/17 13:59 05/04/17 19:48 100 MG Acetaminophen (Tylenol Tab) 650 mg TID PRN PO 04/29/17 21:00 05/29/17 08:59 Oxycodone/ Acetaminophen (Percocet 10-325MG Tab) 1 tab Q4 PRN PO 04/29/17 20:00 05/10/17 22:59 05/04/17 19:49 1 TAB Ondansetron HCl (Zofran Odt) 4 mg Q8H PRN PO 04/30/17 08:45 05/30/17 08:44 Saccharomyces Boulardii (Florastor Cap) 250 mg TID PO 05/04/17 14:00 06/03/17 13:59 05/04/17 19:51 250 MG Acetaminophen 100 ml @ 400 mls/hr Q8H PRN IV 05/05/17 04:00 06/04/17 03:59 05/05/17 12:51 400 MLS/HR Daptomycin 800 mg/ Sodium Chloride 66 ml @ 100 mls/hr DAILY@0600 IV 05/05/17 04:30 05/07/17 04:29 05/05/17 04:24 100 MLS/HR Famotidine 20 mg/ Dextrose 102 ml @ 200 mls/hr Q12H IV 05/05/17 05:00 06/04/17 04:59 05/05/17 17:05 200 MLS/HR Metronidazole 500 mg/Prmx 100 ml @ 100 mls/hr Q8H IV 05/05/17 05:00 05/19/17 04:59 05/05/17 12:51 100 MLS/HR Pantoprazole Sodium 40 mg/ Dextrose 100 ml @ 20 mls/hr Q5H IV 05/05/17 09:00 06/04/17 08:59 05/05/17 18:40 20 MLS/HR Ascorbic Acid 500 mg/Sodium Chloride 101 ml @ 202 mls/hr DAILY IV 05/05/17 09:00 06/04/17 08:59 05/05/17 09:06 202 MLS/HR Potassium Chloride/Dextrose/ Sod Cl 1,000 ml @ 150 mls/hr Q6H40M IV 05/05/17 11:00 06/04/17 10:59 05/05/17 17:04 150 MLS/HR Objective Vital Signs Date Time Temp Pulse Resp B/P (MAP) Pulse Ox O2 Delivery O2 Flow Rate FiO2 05/05/17 17:14 37.5 05/05/17 15:53 37.3 63 20 98/55 (69) 93 Room Air 05/05/17 13:39 37.0 05/05/17 12:20 Nasal Cannula 2.0 05/05/17 10:55 38.1 94 24 123/49 (73) 98 05/05/17 08:30 Nasal Cannula 2.0 05/05/17 06:59 38.0 95 23 121/39 (66) 97 Nasal Cannula 2.0 05/05/17 04:47 37.5 100 24 05/05/17 03:45 38.8 97 24 106/53 (70) 97 Nasal Cannula 2.0 05/05/17 03:30 Nasal Cannula 2.0 05/04/17 23:33 37.0 100 24 126/53 (77) 95 Nasal Cannula 2.0 05/04/17 23:30 Nasal Cannula 2.0 05/04/17 20:00 96 Nasal Cannula 2.0 05/04/17 19:20 37.0 69 20 127/68 (87) 94 Nasal Cannula 2.0 Physical Exam General Appearance: WD/WN, no apparent distress Eyes: normal inspection, sclerae normal ENT: normal ENT inspection, pharynx normal Neck: supple, no adenopathy, trachea midline Respiratory/Chest: chest non-tender, lungs clear, normal breath sounds, no respiratory distress Cardiovascular: regular rate, rhythm, no gallop, no murmur Abdomen: no organomegaly, + distended, + pertinent finding (decreased bowel sounds.) Neurologic/Psychiatric: + disoriented, + pertinent finding (lethargic) Skin: normal color, + pertinent finding (no extension of left leg cellulitis) Lymphatic: no adenopathy Laboratory Results Date/Time Source Procedure Growth Status 05/05/17 04:16 Blood Blood Culture Pending Received 05/05/17 04:05 Blood Blood Culture Pending Received 05/05/17 06:15 Stool C.difficile Toxin B Gene (PCR) - Final No C. difficile toxin B gene detected Complete Last 24 Hours Test 05/05/17 03:40 05/05/17 04:05 05/05/17 10:31 05/05/17 15:57 Stool Occult Blood POSITIVE White Blood Count 10.07 K/uL Red Blood Count 3.77 M/uL Hemoglobin 10.4 g/dL 9.6 g/dL 9.6 g/dL Hematocrit 33.3 % 31.3 % 31.6 % Mean Corpuscular Volume 88.3 fL Mean Corpuscular Hemoglobin 27.6 pg Mean Corpuscular Hemoglobin Concent 31.2 g/dl Platelet Count 197 K/uL Mean Platelet Volume 11.0 fL RDW Standard Deviation 52.8 fL RDW Coefficient of Variation 16.3 % Neutrophils % (Manual) 71.3 % Lymphocytes % (Manual) 12.2 % Monocytes % (Manual) 10.4 % Eosinophils % (Manual) 2.6 % Basophils % (Manual) 2.6 % Myelocytes % 0.9 % Neutrophils # (Manual) 7.18 K/uL Total Absolute Neutrophils 7.18 K/uL Lymphocytes # (Manual) 1.23 K/uL Total Absolute Lymphocytes 1.23 K/uL Monocytes # (Manual) 1.05 K/uL Eosinophils # (Manual) 0.26 K/uL Basophils # (Manual) 0.26 K/uL Myelocytes # 0.09 K/uL Dohle Bodies 1+ Prothrombin Time 19.7 SECONDS Prothromb Time International Ratio 1.8 Sodium Level 150 mmol/L 151 mmol/L Potassium Level 3.9 mmol/L 3.7 mmol/L Chloride Level 120 mmol/L 122 mmol/L Carbon Dioxide Level 27 mmol/L 25 mmol/L Anion Gap 3.0 mmol/L 4.0 mmol/L Blood Urea Nitrogen 59 mg/dl 53 mg/dl Creatinine 2.20 mg/dl 2.00 mg/dl Est Creatinine Clear Calc Drug Dose 42.4 ml/min 45.6 ml/min Estimated GFR () 34.4 38.6 Estimated GFR (Non- 29.7 33.3 BUN/Creatinine Ratio 26.8 26.3 Random Glucose 132 mg/dl 111 mg/dl Lactic Acid Level 1.4 mmol/L Calcium Level 8.0 mg/dl 7.9 mg/dl Phosphorus Level 2.6 mg/dl Magnesium Level 2.6 mg/dl Total Bilirubin 0.4 mg/dl Aspartate Amino Transf (AST/SGOT) 16 U/L Alanine Aminotransferase (ALT/SGPT) 21 U/L Alkaline Phosphatase 59 U/L C-Reactive Protein 7.77 mg/dl Total Protein 5.8 gm/dl Albumin 2.2 gm/dl Globulin 3.6 gm/dl Albumin/Globulin Ratio 0.6 Patient Name: AMANDA WILLARD Unit Number: [id number] Dictated: 05/05/171634 Transcribed: 05/05/171634 EV Printed Date/Time: [~ rep prt dt]/[~ rep prt tm] [~ rep ct labl] - [~ rep ct ivnm] [facility] [place] [address] Dictated: 05/05/171634 Transcribed: 05/05/171634 EV Printed Date/Time: [~ rep prt dt]/[~ rep prt tm] [~ rep ct labl] - [~ rep ct ivnm] CT SCAN OF THE BRAIN WITHOUT IV CONTRAST CLINICAL HISTORY: Mental status change. COMPARISON STUDY: CT of the brain dated 04/26/2017. TECHNIQUE: Unenhanced axial CT scan of the brain is performed from the vertex to the skull base. CT DOSE: 1647.88 mGycm FINDINGS: Brain parenchyma: There are age-related involutional changes noting mild subcortical and periventricular microangiopathic change. There is no hemorrhage, mass effect, or evidence of acute territorial ischemia by CT criteria. Aguilera-white matter is preserved. No extra-axial fluid collection is seen. Ventricles, sulci, cisterns: Prominent secondary to involutional change. Intracranial vasculature: There is atherosclerotic calcification of the cavernous carotid and vertebral arteries. Calvarium: Unremarkable. Sinuses and mastoids: Trace mucosal thickening is seen in the left maxillary antrum. The remaining visualized paranasal sinuses are clear. There is a large left mastoid effusion. The right mastoid air cells are well pneumatized. Orbits: The bony orbits are grossly intact. There is a left ocular lens implant. Soft tissues: A 1.9 cm sebaceous cyst is noted in the left parietal scalp. IMPRESSION: 1. There is no hemorrhage, mass effect, or evidence of acute territorial ischemia by CT criteria. There has been no significant change from 04/26/2017. 2. Large left mastoid effusion. Electronically signed by: Lucas Guadalupe M.D. 05/05/2017 4:38 PM Dictated Date/Time: 05/05/2017 4:35 PM The status of this report is Signed. Draft = Not yet reviewed or approved by Radiologist. Signed = Reviewed and approved by Radiologist. <AttendingPhy>Snow Jose M.D.</AttendingPhy> <FamilyPhy>Carlo Willingham M.D. </FamilyPhy> <PrimaryPhy>Carlo Willingham M.D.</PrimaryPhy> <UnitNumber>[id number] </UnitNumber> <VisitNumber>[id number]</VisitNumber> <PatientName>AMANDA WILLARD</PatientName> <DateOfBirth>1950</DateOfBirth> <Location>[facility]</ Location> <ServiceDate>04/26/17</ServiceDate> <MNE>ESINDI</MNE> <OrderingPhy> Snow Jose M.D.</OrderingPhy> <OrderingPhyMNE>f rep ord dr norris</ OrderingPhyMNE> <DictatingPhyMNE>f rep dict dr norris</DictatingPhyMNE> <CCListMNE> f rep ct mne</CCListMNE> <AdmittingPhyMNE>f pt admit dr norris</AdmittingPhyMNE> < AttendingPhyMNE>f pt attend dr norris</AttendingPhyMNE> <ConsultingPhyMNE>f pt consult dr norris</ConsultingPhyMNE> <FamilyPhyMNE>f pt fam dr norris</FamilyPhyMNE> <OtherPhyMNE>f pt other dr norris</OtherPhyMNE> < PrimaryPhyMNE>f pt prim care dr norris</PrimaryPhyMNE> <ReferringPhyMNE>f pt referring dr norris</ReferringPhyMNE> Assessment and Plan (1) Hypothyroidism (2) Obesity (3) Hypertension (4) Acid reflux (5) Septic shock (6) Hypotension (7) Neuropathy Status: Chronic (8) Left leg cellulitis Status: Acute (9) Sleep apnea 58-year-old male with acute group B streptococcal sepsis with left lower extremity cellulitis and acute kidney injury, now improving. Has developed AMS change, with no obvious etiology and negative CT. Has had diarrhea but C. diff PCR negative and CT without new changes. Will await final blood cultures, await urine culture. Will follow.
[2017-05-05 20:31] LABS: BUN/CREATININE RATIO 25.5 (10-20); CALCIUM 7.9 mg/dl (8.5-10.1); CREATININE 1.9 mg/dl (0.60-1.40); POTASSIUM 3.7 mmol/L (3.5-5.1)
[2017-05-05] MEDS: MONTELUKAST SOD 10 MG TAB PO SCH (20:35)
[2017-05-05] MEDS: ASPIRIN 81 MG ECTAB PO SCH (21:00)
[2017-05-05] MEDS ORDERED: LORAZEPAM 2 MG/ML 1 ML VIAL IV STA (21:04)
[2017-05-05 22:06] LABS: ARTERIAL BLD GAS O2 SATURATION 95.1 % (90-95); ARTERIAL BLOOD GAS BASE EXCESS -2.4 mEq/L (-9-1.8); ARTERIAL BLOOD GAS HCO3 21 mmol/L (19-24); ARTERIAL BLOOD GAS PO2 79 mm/Hg (80-95); ARTERIAL BLOOD GAS pH 7.44 (7.35-7.45)
[2017-05-05 22:08] LABS: ALLEN TEST POS (POS); O2 ADMINISTRATION ROOM AIR
[2017-05-05 22:41] LABS: LYME DISEASE AB IGG NEG (NEG); LYME DISEASE AB IGM NEG (NEG)
[2017-05-06] VITALS (16 sets, daily range): BP systolic 95–143; BP diastolic 42–65; PULSE 77–103; TEMP 36.6–37.6; O2SAT 91–100
[2017-05-06] MEDS: PANTOprazole INJ 40 MG in DEXTROSE 5% 100ML IV SCH ×5 (00:04→20:20)
[2017-05-06] MEDS: D5W AND 1/4NSS + 20MEQ KCL 1,000 ML IV SCH ×4 (00:06→19:06)
[2017-05-06 02:30] LABS: BUN/CREATININE RATIO 23.5 (10-20); CALCIUM 8.1 mg/dl (8.5-10.1); CREATININE 1.8 mg/dl (0.60-1.40); POTASSIUM 3.8 mmol/L (3.5-5.1)
[2017-05-06] MEDS: FAMOTIDINE IV INJ 20 MG in DEXTROSE 5% 100ML 100 ML IV SCH ×2 (04:51→19:05)
[2017-05-06] MEDS: METRONIDAZOLE 500MG / NSS IV SCH ×2 (05:26→13:23)
[2017-05-06 06:24] LABS: BUN/CREATININE RATIO 23.2 (10-20); CREATININE 1.8 mg/dl (0.60-1.40); MAGNESIUM 2.4 mg/dl (1.8-2.4); POTASSIUM 3.6 mmol/L (3.5-5.1)
[2017-05-06 06:25] LABS: PHOSPHORUS 2.3 mg/dl (2.5-4.9)
[2017-05-06] MEDS: DAPTOmycin IV 800 MG in SODIUM CHLORIDE 0.9% 50ML 50 ML IV SCH (06:31)
[2017-05-06] MEDS: PREGABALIN 100 MG CAP PO SCH ×3 (07:45→21:11)
[2017-05-06] MEDS: CEROVITE ADV FORMULA TAB PO SCH (07:45)
[2017-05-06 08:07] LABS: HEMATOCRIT 30.9 % (42-52); MEAN CELL VOLUME 90.1 fL (80-100); MEAN CORPUSCULAR HEMOGLOBIN 27.4 pg (25-34); MEAN CORPUSCULAR HGB CONC 30.4 g/dl (32-36); MEAN PLATELET VOLUME 11.3 fL (7.4-10.4); PLATELET COUNT 163 K/uL (130-400); RED BLOOD COUNT 3.43 M/uL (4.7-6.1); WHITE BLOOD COUNT 7.49 K/uL (4.8-10.8)
[2017-05-06] MEDS: ASCORBIC ACID IV SCH (08:10)
[2017-05-06] MEDS: SODIUM CHLORIDE 0.9% IV SCH (08:10)
--- NOTE | 2017-05-06 09:36 | DIAGNOSTIC IMAGING REPORT ---
ABDOMEN 2 VIEWS CLINICAL HISTORY: Small bowel obstruction COMPARISON STUDY: 05/05/2017 FINDINGS: There are persistent dilated small bowel loops measuring up to 5.4 cm in diameter. There are multiple air-fluid levels. No free air is visualized. There is no colonic distention. The findings are consistent with a small bowel obstruction. IMPRESSION: Persistent small bowel obstructive pattern. No evidence of free air. Small bowel loops measure up to 5.4 cm in diameter uncorrected for magnification Electronically signed by: Mason Ariza M.D. 05/06/2017 9:35 AM Dictated Date/Time: 05/06/2017 9:33 AM
[2017-05-06] MEDS: LEVOTHYROXINE SODIUM IV SCH (09:40)
--- NOTE | 2017-05-06 10:12 | Gastroenterology Progress Note ---
Progress Note Date of Service: May 06, 2017 Subjective Pt evaluation today including: conversation w/ patient, physical exam, chart review, lab review, review of studies, review of inpatient medication list Patient remains agitated and is currently restrained. Plans for lumbar puncture today under anesthesia due to persistent fevers and altered mental status. Patients H&H has stabilized over the past 24 hours and is 9.4 and 30.9 this morning. Remains on a PPI ggt. Rectal tube drainage now with green liquid drainage. No further black liquid stools. Orally enhanced CT scan with findings of persistently dilated small bowel loops within the jejunum and features suggestive of persistent obstruction. Repeat abdominal series today with persistent obstructive pattern with small bowel dilation measuring to 5.4 cm. Patient unable to provide any history. Review of Systems unable to obtain due to altered mental status Medications Current Inpatient Medications Medications (Trade) Dose Ordered Sig/[place] Route Start Time Stop Time Status Last Admin Dose Admin Aspirin (Ecotrin Tab) 81 mg QPM PO 04/27/17 21:00 05/27/17 20:59 05/04/17 19:50 81 MG Cholecalciferol (Vitamin D Tab) 1,000 inter.unit QAM PO 04/27/17 09:00 05/27/17 08:59 Future Hold 05/04/17 07:50 1,000 INTER.UNIT Levothyroxine Sodium (Synthroid Tab) 25 mcg DAILYBB PO 04/27/17 06:00 05/27/17 05:59 Future Hold 05/04/17 05:54 25 MCG Montelukast Sodium (Singulair Tab) 10 mg HS PO 04/27/17 21:00 05/27/17 20:59 05/04/17 19:50 10 MG Multivitamins/ Minerals (Multivitamin W/ Minerals Tab) 1 tab DAILY PO 04/27/17 09:00 05/27/17 08:59 05/04/17 07:51 1 TAB Heparin Sodium (Porcine) (Heparin Sq 5000 Unit/0.5ml) 5,000 unit Q8 SQ 04/27/17 06:00 05/27/17 05:59 Future Hold 05/04/17 14:22 5,000 UNIT Heparin Sodium (Porcine) (Heparin 10 Unit/ ml 5 ml Flush) 5 ml PRN PRN FLUSH 04/28/17 01:30 05/28/17 01:29 05/05/17 10:46 5 ML Ranitidine HCl (zANTac TAB) 150 mg QAM PO 04/29/17 09:00 05/29/17 08:59 Future Hold 05/04/17 07:51 150 MG Pregabalin (Lyrica Cap) 100 mg TID PO 04/28/17 14:00 05/28/17 13:59 05/04/17 19:48 100 MG Acetaminophen (Tylenol Tab) 650 mg TID PRN PO 04/29/17 21:00 05/29/17 08:59 Oxycodone/ Acetaminophen (Percocet 10-325MG Tab) 1 tab Q4 PRN PO 04/29/17 20:00 05/10/17 22:59 05/04/17 19:49 1 TAB Ondansetron HCl (Zofran Odt) 4 mg Q8H PRN PO 04/30/17 08:45 05/30/17 08:44 Acetaminophen 100 ml @ 400 mls/hr Q8H PRN IV 05/05/17 04:00 06/04/17 03:59 05/05/17 12:51 400 MLS/HR Daptomycin 800 mg/ Sodium Chloride 66 ml @ 100 mls/hr DAILY@0600 IV 05/05/17 04:30 05/07/17 04:29 05/06/17 06:31 100 MLS/HR Famotidine 20 mg/ Dextrose 102 ml @ 200 mls/hr Q12H IV 05/05/17 05:00 06/04/17 04:59 05/06/17 04:51 200 MLS/HR Metronidazole 500 mg/Prmx 100 ml @ 100 mls/hr Q8H IV 05/05/17 05:00 05/19/17 04:59 05/06/17 05:26 100 MLS/HR Pantoprazole Sodium 40 mg/ Dextrose 100 ml @ 20 mls/hr Q5H IV 05/05/17 09:00 06/04/17 08:59 05/06/17 09:40 20 MLS/HR Ascorbic Acid 500 mg/Sodium Chloride 101 ml @ 202 mls/hr DAILY IV 05/05/17 09:00 06/04/17 08:59 05/06/17 08:10 202 MLS/HR Potassium Chloride/Dextrose/ Sod Cl 1,000 ml @ 150 mls/hr Q6H40M IV 05/05/17 11:00 06/04/17 10:59 05/06/17 06:34 150 MLS/HR Olanzapine (Zyprexa Zydis Od Tab) 5 mg HS PO 05/06/17 21:00 06/05/17 20:59 Lorazepam (Ativan Inj) 1 mg Q4H PRN IV 05/06/17 01:00 06/05/17 00:59 Levothyroxine Sodium 15 mcg/ Syringe 0.75 ml @ 2 mls/min DAILY@09 IV 05/06/17 09:00 06/05/17 08:59 05/06/17 09:40 2 MLS/MIN Objective Vital Signs Date Time Temp Pulse Resp B/P (MAP) Pulse Ox O2 Delivery O2 Flow Rate FiO2 05/06/17 07:09 36.6 97 21 102/62 (75) 100 Nasal Cannula 4.0 05/06/17 04:00 Nasal Cannula 4.0 05/06/17 03:28 37.5 90 24 132/54 (80) 100 Nasal Cannula 4.0 05/05/17 23:59 Nasal Cannula 4.0 05/05/17 23:08 37.6 100 24 145/47 (79) 100 Nasal Cannula 2.0 05/05/17 20:00 97 Nasal Cannula 2.0 05/05/17 18:59 36.9 102 20 112/53 (72) 97 Nasal Cannula 2.0 05/05/17 17:14 37.5 05/05/17 16:00 93 Room Air 2.0 05/05/17 15:53 37.3 63 20 98/55 (69) 93 Room Air 05/05/17 13:39 37.0 05/05/17 12:20 Nasal Cannula 2.0 05/05/17 10:55 38.1 94 24 123/49 (73) 98 Physical Exam General Appearance: + mild distress Respiratory/Chest: lungs clear, normal breath sounds, no respiratory distress Cardiovascular: regular rate, rhythm Abdomen: soft, + abnormal bowel sounds (hypoactive ), + pertinent finding ( wincing with palpation today) Extremities: + swelling Neurologic/Psych: + disoriented, + pertinent finding (agitated) Skin: warm/dry Laboratory Results Last 24 Hours Test 05/05/17 10:31 05/05/17 15:57 05/05/17 20:03 05/05/17 21:25 Hemoglobin 9.6 g/dL 9.6 g/dL Hematocrit 31.3 % 31.6 % Sodium Level 151 mmol/L 151 mmol/L Potassium Level 3.7 mmol/L 3.7 mmol/L Chloride Level 122 mmol/L 122 mmol/L Carbon Dioxide Level 25 mmol/L 26 mmol/L Anion Gap 4.0 mmol/L 3.0 mmol/L Blood Urea Nitrogen 53 mg/dl 48 mg/dl Creatinine 2.00 mg/dl 1.90 mg/dl Est Creatinine Clear Calc Drug Dose 45.6 ml/min 48.0 ml/min Estimated GFR () 38.6 41.1 Estimated GFR (Non- 33.3 35.4 BUN/Creatinine Ratio 26.3 25.5 Random Glucose 111 mg/dl 104 mg/dl Calcium Level 7.9 mg/dl 7.9 mg/dl Ammonia 29.0 umol/L Lyme Disease IgG Antibody NEG Lyme Disease IgM Antibody NEG Test 05/05/17 21:57 05/06/17 01:46 05/06/17 04:55 05/06/17 07:25 Arterial Blood pH 7.44 Arterial Blood Partial Pressure CO2 32 mmHg Arterial Blood Partial Pressure O2 79 mm/Hg Arterial Blood HCO3 21 mmol/L Arterial Blood Oxygen Saturation 95.1 % Arterial Blood Base Excess -2.4 mEq/L Arterial Blood Gas Delivery ROOM AIR Jean Claude Test POS Sodium Level 152 mmol/L 150 mmol/L Potassium Level 3.8 mmol/L 3.6 mmol/L Chloride Level 123 mmol/L 121 mmol/L Carbon Dioxide Level 28 mmol/L 25 mmol/L Anion Gap 1.0 mmol/L 4.0 mmol/L Blood Urea Nitrogen 42 mg/dl 42 mg/dl Creatinine 1.80 mg/dl 1.80 mg/dl Est Creatinine Clear Calc Drug Dose 50.7 ml/min 50.9 ml/min Estimated GFR () 43.8 43.8 Estimated GFR (Non- 37.8 37.8 BUN/Creatinine Ratio 23.5 23.2 Random Glucose 101 mg/dl 105 mg/dl Calcium Level 8.1 mg/dl 8.0 mg/dl Phosphorus Level 2.3 mg/dl Magnesium Level 2.4 mg/dl Albumin 2.1 gm/dl White Blood Count 7.49 K/uL Red Blood Count 3.43 M/uL Hemoglobin 9.4 g/dL Hematocrit 30.9 % Mean Corpuscular Volume 90.1 fL Mean Corpuscular Hemoglobin 27.4 pg Mean Corpuscular Hemoglobin Concent 30.4 g/dl RDW Standard Deviation 55.3 fL RDW Coefficient of Variation 16.8 % Platelet Count 163 K/uL Mean Platelet Volume 11.3 fL Assessment and Plan 1. Keep NPO. Recommend reinsertion of NG to LIW suction. This was discussed with Dr. Jose. 2. Patient for lumbar puncture under anesthesia today. 3. H&H has stabilized and black stools have stopped. Therefore, given overall clinical status will hold off on EGD today due to multiple medical comorbidities. Continue PPI ggt. 4. Await further input from surgery and ID. Agree with AGNES Wheeler as above Patient more alert at present, able to answer questions appropriately Abd: Soft, NT, ND, +BS Continue correction of Hypernatremia as per Nephrology ID workup continues for intermittent fevers Appreciate surgery input Continue Protonix gtt. H/H stable. More pressing medical needs at this time, and therefore no EGD at present.
[2017-05-06] MEDS ORDERED: D5W AND 1/4NSS 1,000 ML IV ONE (10:15)
--- NOTE | 2017-05-06 11:09 | Nephrology Progress Note ---
Nephrology Progress Note Date of Service May 06, 2017. Chief Complaint JERRY due to septic shock in the setting of NSAID / KULDIP inhibitor therapy Subjective Mr. Camacho was seen & examined in the ICU this morning. His was present at the time of my exam. Mr. Camacho is delirious. staff development nurse has placed soft wrist restraints after he pulled out his NG tube yesterday. Rectal tube is in place draining copious amounts of dark green stool. Review of Systems Patient was unable to provide ROS due to delirium Vital Signs Last 8 Hrs Date Time Temp Pulse Resp B/P (MAP) Pulse Ox O2 Delivery O2 Flow Rate FiO2 05/06/17 08:00 Nasal Cannula 4.0 05/06/17 07:09 36.6 97 21 102/62 (75) 100 Nasal Cannula 4.0 05/06/17 04:00 Nasal Cannula 4.0 05/06/17 03:28 37.5 90 24 132/54 (80) 100 Nasal Cannula 4.0 Last Recorded Weight Weight (Kilograms): 126.500 Physical Exam General Appearance: + pertinent finding (agitated) Head: normocephalic, atraumatic Eyes: PERRL Neck: no adenopathy Respiratory/Chest: lungs clear (anteriorly) Cardiovascular: regular rate, rhythm Abdomen/GI: + distended (no bowel sounds. 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 Laboratory Results Past 24 Hours 05/05/17 15:57 05/06/17 07:25 05/05/17 15:57 05/05/17 20:03 05/06/17 01:46 05/06/17 04:55 Test 05/05/17 15:57 05/05/17 20:03 05/05/17 21:25 05/05/17 21:57 Anion Gap 4.0 mmol/L (3-11) 3.0 mmol/L (3-11) Est Creatinine Clear Calc Drug Dose 45.6 ml/min 48.0 ml/min Estimated GFR () 38.6 41.1 Estimated GFR (Non- 33.3 35.4 BUN/Creatinine Ratio 26.3 (10-20) 25.5 (10-20) Calcium Level 7.9 mg/dl (8.5-10.1) 7.9 mg/dl (8.5-10.1) Ammonia 29.0 umol/L (11-32) Lyme Disease IgG Antibody NEG (NEG) Lyme Disease IgM Antibody NEG (NEG) Arterial Blood pH 7.44 (7.35-7.45) Arterial Blood Partial Pressure CO2 32 mmHg (35-46) Arterial Blood Partial Pressure O2 79 mm/Hg (80-95) Arterial Blood HCO3 21 mmol/L (19-24) Arterial Blood Oxygen Saturation 95.1 % (90-95) Arterial Blood Base Excess -2.4 mEq/L (-9-1.8) Arterial Blood Gas Delivery ROOM AIR Jean Claude Test POS (POS) Test 05/06/17 01:46 05/06/17 04:55 05/06/17 07:25 Anion Gap 1.0 mmol/L (3-11) 4.0 mmol/L (3-11) Est Creatinine Clear Calc Drug Dose 50.7 ml/min 50.9 ml/min Estimated GFR () 43.8 43.8 Estimated GFR (Non- 37.8 37.8 BUN/Creatinine Ratio 23.5 (10-20) 23.2 (10-20) Calcium Level 8.1 mg/dl (8.5-10.1) 8.0 mg/dl (8.5-10.1) Phosphorus Level 2.3 mg/dl (2.5-4.9) Magnesium Level 2.4 mg/dl (1.8-2.4) Albumin 2.1 gm/dl (3.4-5.0) Red Blood Count 3.43 M/uL (4.7-6.1) Mean Corpuscular Volume 90.1 fL (80-100) Mean Corpuscular Hemoglobin 27.4 pg (25-34) Mean Corpuscular Hemoglobin Concent 30.4 g/dl (32-36) RDW Standard Deviation 55.3 fL (36.4-46.3) RDW Coefficient of Variation 16.8 % (11.5-14.5) Mean Platelet Volume 11.3 fL (7.4-10.4) Allergies Coded Allergies: Tetracycline (Verified Allergy, Unknown, SORES IN MOUTH, 04/26/17) Medications Current Inpatient Medications Medications (Trade) Dose Ordered Sig/Delonte Route Start Time Stop Time Status Last Admin Dose Admin Aspirin (Ecotrin Tab) 81 mg QPM PO 04/27/17 21:00 05/27/17 20:59 05/04/17 19:50 81 MG Cholecalciferol (Vitamin D Tab) 1,000 inter.unit QAM PO 04/27/17 09:00 05/27/17 08:59 Future Hold 05/04/17 07:50 1,000 INTER.UNIT Levothyroxine Sodium (Synthroid Tab) 25 mcg DAILYBB PO 04/27/17 06:00 05/27/17 05:59 Future Hold 05/04/17 05:54 25 MCG Montelukast Sodium (Singulair Tab) 10 mg HS PO 04/27/17 21:00 05/27/17 20:59 05/04/17 19:50 10 MG Multivitamins/ Minerals (Multivitamin W/ Minerals Tab) 1 tab DAILY PO 04/27/17 09:00 05/27/17 08:59 05/04/17 07:51 1 TAB Heparin Sodium (Porcine) (Heparin Sq 5000 Unit/0.5ml) 5,000 unit Q8 SQ 04/27/17 06:00 05/27/17 05:59 Future Hold 05/04/17 14:22 5,000 UNIT Heparin Sodium (Porcine) (Heparin 10 Unit/ ml 5 ml Flush) 5 ml PRN PRN FLUSH 04/28/17 01:30 05/28/17 01:29 05/05/17 10:46 5 ML Ranitidine HCl (zANTac TAB) 150 mg QAM PO 04/29/17 09:00 05/29/17 08:59 Future Hold 05/04/17 07:51 150 MG Pregabalin (Lyrica Cap) 100 mg TID PO 04/28/17 14:00 05/28/17 13:59 05/04/17 19:48 100 MG Acetaminophen (Tylenol Tab) 650 mg TID PRN PO 04/29/17 21:00 05/29/17 08:59 Oxycodone/ Acetaminophen (Percocet 10-325MG Tab) 1 tab Q4 PRN PO 04/29/17 20:00 8/6/17 22:59 05/04/17 19:49 1 TAB Ondansetron HCl (Zofran Odt) 4 mg Q8H PRN PO 04/30/17 08:45 05/30/17 08:44 Acetaminophen 100 ml @ 400 mls/hr Q8H PRN IV 05/05/17 04:00 06/04/17 03:59 05/05/17 12:51 400 MLS/HR Daptomycin 800 mg/ Sodium Chloride 66 ml @ 100 mls/hr DAILY@0600 IV 05/05/17 04:30 05/07/17 04:29 05/06/17 06:31 100 MLS/HR Famotidine 20 mg/ Dextrose 102 ml @ 200 mls/hr Q12H IV 05/05/17 05:00 06/04/17 04:59 05/06/17 04:51 200 MLS/HR Metronidazole 500 mg/Prmx 100 ml @ 100 mls/hr Q8H IV 05/05/17 05:00 05/19/17 04:59 05/06/17 05:26 100 MLS/HR Pantoprazole Sodium 40 mg/ Dextrose 100 ml @ 20 mls/hr Q5H IV 05/05/17 09:00 06/04/17 08:59 05/06/17 09:40 20 MLS/HR Ascorbic Acid 500 mg/Sodium Chloride 101 ml @ 202 mls/hr DAILY IV 05/05/17 09:00 06/04/17 08:59 05/06/17 08:10 202 MLS/HR Potassium Chloride/Dextrose/ Sod Cl 1,000 ml @ 175 mls/hr Q5H43M IV 05/05/17 11:00 06/04/17 10:59 05/06/17 06:34 150 MLS/HR Olanzapine (Zyprexa Zydis Od Tab) 5 mg HS PO 05/06/17 21:00 06/05/17 20:59 Lorazepam (Ativan Inj) 1 mg Q4H PRN IV 05/06/17 01:00 06/05/17 00:59 Levothyroxine Sodium 15 mcg/ Syringe 0.75 ml @ 2 mls/min DAILY@09 IV 05/06/17 09:00 06/05/17 08:59 05/06/17 09:40 2 MLS/MIN Dextrose/Sodium Chloride 1,000 ml @ 999 mls/hr Q1H1M ONCE IV 05/06/17 10:15 05/06/17 11:15 05/06/17 10:36 999 MLS/HR Impression (1) ATN (acute tubular necrosis) (2) Acute renal insufficiency (3) Hypokalemia (4) Septic shock (5) Calculus Of Kidney (6) Septicemia due to group B Streptococcus (7) Cellulitis Mr. Zurdo Camacho is a 66 year-old male with non oliguric acute renal injury consistent with multifactorial ATN. He was admitted with diarrhea and septic shock from group B step bacteremia with cellulitis. Baseline creatinine ~1.4 mg/dL consistent with CKD III. Creatinine increased to 3.2 mg/ dL on 05/01/17. He did not require FOREIGN CORRESPONDENT and renal function is improving. ATN is likely both ischemic and septic complicated by NSAID and KULDIP use and iodinated contrast exposure on admission. Renal imaging has revealed a 15 mm R renal mass as well as non obstructing left renal calculi. There is no evidence of obstructive nephropathy. UA was notable for 3+ protein. Urine microscopy was acellular. Patient has developed a partial SBO. He has had excessive free water losses due to diarrhea and fever. Serum sodium has risen to 150 mmol/L Recommendations JERRY/ATN: -- Patient is nonoliguric. Urine output was 1700 cc last 24 hours -- Monitor serial PRP HYPERNATREMIA: -- Case discussed w/ Hospitalist service this am -- Patient has significant free water loss due to fever and diarrhea -- Increase D5 0.25NS to 175 cc/hr -- Monitor serial PRP GI: -- Case discussed w/ Gastroenterology today. KUB x-ray films reviewed. Patient has increased dilation of small bowel -- Consider replacing NG tube -- Await General Surgery follow up evaluation RENAL MASS: -- Outpatient follow up with Dr. Francis CELLULITIS: -- LLE cellulitis is clinically improved -- IV antibiotics as per primary service
[2017-05-06] MEDS ORDERED: PHYTONADIONE INJ 5 MG in SODIUM CHLORIDE 0.9% 50ML 50 ML IV ONE (11:45)
[2017-05-06 13:06] LABS: INR 1.8 (0.9-1.1); PROTHROMBIN TIME (PATIENT) 20.2 SECONDS (9.0-12.0)
[2017-05-06 13:25] LABS: BUN/CREATININE RATIO 19.1 (10-20); CALCIUM 7.8 mg/dl (8.5-10.1); CREATININE 1.7 mg/dl (0.60-1.40); POTASSIUM 3.7 mmol/L (3.5-5.1)
[2017-05-06 13:27] LABS: ALB/GLOB RATIO 0.6 (0.9-2)
--- NOTE | 2017-05-06 13:55 | Family Medicine Progress Note ---
Progress Note Date of Service May 06, 2017. Subjective Pt evaluation today including: conversation w/ patient, conversation w/ family , physical exam, chart review, lab review The patient was seen and examined at bedside. Pt began pulling at IJ catheter and line and soft restraints were applied. Pt was given Olanzapine and Ativan overnight for agitation. Pt's mental status continues to consist of confabulation, confusion and at times agitation. Pt had a low grade fever overnight. IVF continue to run. Stool is more green than previous day. * Abdo X-ray this AM* : Continue SBO, worsening from previous day if the X-ray was taken from the same distance. *Update 4pm: According to nurse, pt's said that the pt has two drinks per day, Lyrica 200mg TID, Percocet TID and he is opioid dependent. ROS: review of systems is negative but I'm not sure how reliable the ROS was, pt denies abdominal pain, chest pain, SOB. Constitutional: + fever, No chills, No weight loss Abdomen: + loose stools, No pain, No nausea, No vomiting, No constipation Objective Physical Exam Notes: General Appearance: WD/WN, + obese Respiratory/Chest: chest non-tender, lungs clear, normal breath sounds, no respiratory distress, no accessory muscle use Cardiovascular: regular rate, rhythm, no edema, no gallop, no JVD, no murmur Abdomen: normal bowel sounds, non tender, soft, no organomegaly, no pulsatile mass, + pertinent finding (Abdomen is soft, non tender to deep palpation. ) Extremities: normal range of motion, non-tender, normal inspection, no pedal edema, + pertinent finding (dressing on left lower leg intact. Pt has a goode draining concentrated yellow urine and a rectal tube draining dark green liquid material. ) Neurologic/Psychiatric: alert, + pertinent finding (not responding to questions appropriately, no oriented to time person and place, pt is mumbling answers. ) Assessment and Plan 66M presented with fever and hypotension - diagnosed with sepsis secondary to cellulitis. Hospital course is complicated by a bowel obstruction which required NG tube placement. Pt has had loose stools during his entire admission with increasing frequency. C. Diff was repeated and continues to be negative. Pt does not have any signs of UTI. X-ray showed worsening SBO. Stat surgical consult = no surgical intervention. CT Abdo and Pelvis confirmed X -ray abdo findings. Pt was progressed to clear liquid diet today. Continues to have AMS. Additional history reveals that the pt drinks 2 beers per day. Showing signs of withdrawal and confabulation. Will give Diazepam (Valium) 5mg IV BID. AMS, likely multi factorial, sepsis of LLE vs Delirium Tremens vs hospital acquired delirium vs Hypernatremia - AMS from 05/04/17 continued, an update to the history shows that the pt might be in DT. - s/p zyprexa and lorazepam last night - CT head WNL. - LP today - await results. - Switch from Dapto and Flagyl to Dapto and Zosyn to cover Gram Negatives. - Repeat Blood and Urine cultures from 05/05/17 pending. - hypernatremia - correcting with D5+quarter NSS+20meq at 175mls/hr, will check BMP tonight. - Concern of alcohol/opiate withdrawal considering the history. add scheduled benzo Sepsis secondary to chronic left lower extremity cellulitis - Wound care on board, wound is improving albeit slowly. - Pain control with Percocet and morphine as needed. - ABx as above. Hypernatremia 2/2 Dehydration - Cr 2.7-->2.3-->1.7-->2.2-->1.7 pt is likely dehydrated. - Per discussion with Dr. Godfrey, will rehydrate with IVF as above. - Will check BMP at 11pm and monitor sodium. Bowel obstruction (recurrent?) - Pt continues to have multiple loose green positive dark BMs, C. Diff negative x 3 - Will progress diet based on surgeries recommendation. Severe Diarrhea with heme positive stool - According to pt takes almost schedule Percocets TID, diarrhea is likely withdrawel from opioids. - Per GI - no scope. - Continue with rectal tube. History of several bacteremias/sepsis including meningitis, pneumonia, cellulitis: - Suspect any underlying complement/ immunoglobulin deficiency - Recommend outpatient workup Renal mass on CT: - stable since 2014 - will follow up with Dr. Francis at discharge Right adrenal gland nodule: - likely incidentaloma GI / Diet - continue PPI drip for heme positive stool. - clear fluid diet. Asthma - continue montelukast GUS - continue CPAP at night Peripheral Neuropathy - continue pregabalin (renally dosed) Hypothyroidism - continue levothyroxine 25 mcg IV DVT Prophylaxis - heparin 5000 units SQ Q8H Disposition - Tele FULL CODE Resident Involvement: Resident Care Provided Care Provided: Adult Hospital Medicine Reviewed: Pt Seen/Exam by Me History no fever since am continues to be confused and restless in bed Constitutional: denies: fever General Appearance: other (restless in bed) Respiratory: lungs clear, no respiratory distress Cardiovascular: regular rate, rhythm Gastrointestinal: normal bowel sounds, non tender, soft Neurologic/Psychiatric: alert, other (confused) Skin Characteristics: warm/dry, other (left leg in compression dressing) Assessment/Plan Resident Physician Supervision Note: I was present with Dr. Hurtado in bedside. I verified the le history and physical, reviewed labs and image studies, discussed the case with the resident and agree with the findings and care plan.
--- NOTE | 2017-05-06 14:03 | Surgery Progress Note ---
Surgery Progress Note Date of Service May 06, 2017. Subjective Post OP Day: HD # 10 Patient still confused, agitated, and somewhat lethargic (improved compared to yesterday) Currently in restraints Denies of any chest pain, shortness of breath, nausea, vomiting, or abdominal pain Stools are now dark brown and liquid in rectal tube, not black at bedside, states he seems a little better Mentally today but very agitated Plan for lumbar puncture today Objective Vital Signs: Date Time Temp Pulse Resp B/P (MAP) Pulse Ox O2 Delivery O2 Flow Rate FiO2 05/06/17 12:00 Nasal Cannula 4.0 05/06/17 11:03 36.6 91 23 134/65 (88) 99 Nasal Cannula 4.0 05/06/17 08:00 Nasal Cannula 4.0 05/06/17 07:09 36.6 97 21 102/62 (75) 100 Nasal Cannula 4.0 05/06/17 04:00 Nasal Cannula 4.0 05/06/17 03:28 37.5 90 24 132/54 (80) 100 Nasal Cannula 4.0 05/05/17 23:59 Nasal Cannula 4.0 05/05/17 23:08 37.6 100 24 145/47 (79) 100 Nasal Cannula 2.0 05/05/17 20:00 97 Nasal Cannula 2.0 05/05/17 18:59 36.9 102 20 112/53 (72) 97 Nasal Cannula 2.0 05/05/17 17:14 37.5 05/05/17 16:00 93 Room Air 2.0 05/05/17 15:53 37.3 63 20 98/55 (69) 93 Room Air General Appearance: + obese, + pertinent finding (lethargic, confused, slightlyt agitated with restriants) Head: normocephalic, atraumatic Neck: trachea midline Respiratory/Chest: lungs clear, normal breath sounds, no respiratory distress, no accessory muscle use Cardiovascular: regular rate, rhythm, no murmur Abdomen: non tender, non distended, soft, + abnormal bowel sounds (hypoactive bowel sounds), + pertinent finding (there is rectal tube in place with liquid green stool present, no further melena) Laboratory Results: Results Past 24 Hours Test 05/05/17 15:57 05/05/17 20:03 05/05/17 21:25 05/05/17 21:57 Range/Units Hemoglobin 9.6 14.0-18.0 g/dL Hematocrit 31.6 42-52 % Sodium Level 151 151 136-145 mmol/L Potassium Level 3.7 3.7 3.5-5.1 mmol/L Chloride Level 122 122 98-107 mmol/L Carbon Dioxide Level 25 26 21-32 mmol/L Anion Gap 4.0 3.0 3-11 mmol/L Blood Urea Nitrogen 53 48 7-18 mg/dl Creatinine 2.00 1.90 0.60-1.40 mg/dl Est Creatinine Clear Calc Drug Dose 45.6 48.0 ml/min Estimated GFR () 38.6 41.1 Estimated GFR (Non- 33.3 35.4 BUN/Creatinine Ratio 26.3 25.5 10-20 Random Glucose 111 104 70-99 mg/dl Calcium Level 7.9 7.9 8.5-10.1 mg/dl Ammonia 29.0 11-32 umol/L Lyme Disease IgG Antibody NEG NEG Lyme Disease IgM Antibody NEG NEG Arterial Blood pH 7.44 7.35-7.45 Arterial Blood Partial Pressure CO2 32 35-46 mmHg Arterial Blood Partial Pressure O2 79 80-95 mm/Hg Arterial Blood HCO3 21 19-24 mmol/L Arterial Blood Oxygen Saturation 95.1 90-95 % Arterial Blood Base Excess -2.4 -9-1.8 mEq/L Arterial Blood Gas Delivery ROOM AIR Jean Claude Test POS POS Test 05/06/17 01:46 05/06/17 04:55 05/06/17 07:25 05/06/17 12:48 Range/Units Sodium Level 152 150 148 136-145 mmol/L Potassium Level 3.8 3.6 3.7 3.5-5.1 mmol/L Chloride Level 123 121 120 98-107 mmol/L Carbon Dioxide Level 28 25 24 21-32 mmol/L Anion Gap 1.0 4.0 4.0 3-11 mmol/L Blood Urea Nitrogen 42 42 33 7-18 mg/dl Creatinine 1.80 1.80 1.70 0.60-1.40 mg/dl Est Creatinine Clear Calc Drug Dose 50.7 50.9 53.9 ml/min Estimated GFR () 43.8 43.8 47.0 Estimated GFR (Non- 37.8 37.8 40.5 BUN/Creatinine Ratio 23.5 23.2 19.1 10-20 Random Glucose 101 105 145 70-99 mg/dl Calcium Level 8.1 8.0 7.8 8.5-10.1 mg/dl Phosphorus Level 2.3 2.5-4.9 mg/dl Magnesium Level 2.4 1.8-2.4 mg/dl Albumin 2.1 2.1 3.4-5.0 gm/dl White Blood Count 7.49 4.8-10.8 K/uL Red Blood Count 3.43 4.7-6.1 M/uL Hemoglobin 9.4 14.0-18.0 g/dL Hematocrit 30.9 42-52 % Mean Corpuscular Volume 90.1 80-100 fL Mean Corpuscular Hemoglobin 27.4 25-34 pg Mean Corpuscular Hemoglobin Concent 30.4 32-36 g/dl RDW Standard Deviation 55.3 36.4-46.3 fL RDW Coefficient of Variation 16.8 11.5-14.5 % Platelet Count 163 130-400 K/uL Mean Platelet Volume 11.3 7.4-10.4 fL Prothrombin Time 20.2 9.0-12.0 SECONDS Prothromb Time International Ratio 1.8 0.9-1.1 Total Bilirubin 0.3 0.2-1 mg/dl Aspartate Amino Transf (AST/SGOT) 15 15-37 U/L Alanine Aminotransferase (ALT/SGPT) 20 12-78 U/L Alkaline Phosphatase 52 45-117 U/L Total Protein 5.9 6.4-8.2 gm/dl Globulin 3.8 2.5-4.0 gm/dl Albumin/Globulin Ratio 0.6 0.9-2 Microbiology Results 05/06/17 Urine Culture, Received Pending Diagnostic Interpretation: ABDOMEN 2 VIEWS CLINICAL HISTORY: Small bowel obstruction COMPARISON STUDY: 05/05/2017 FINDINGS: There are persistent dilated small bowel loops measuring up to 5.4 cm in diameter. There are multiple air-fluid levels. No free air is visualized. There is no colonic distention. The findings are consistent with a small bowel obstruction. IMPRESSION: Persistent small bowel obstructive pattern. No evidence of free air. Small bowel loops measure up to 5.4 cm in diameter uncorrected for magnification Assessment & Plan Partial SBO vs Ileus - vitals stable - no leukocytosis - H&H stable, no further melena - no abdominal pain, abdominal examination is benign (soft, nondistended, nontender, no rebound, rigidity, or guarding) - abdominal xray showing dilated loops of small bowel measuring up to 5.2 cm however no contrast is present on xray from CT examination yesterday, all contrast has passed through - no nausea or vomiting Plan: From a surgical standpoint, there is no indication for immediate surgical intervention. Patient is hungry and would like to eat. Lumbar puncture planned for today once INR is corrected Would start clear liquids after procedure if patient being sedated Patient does not have nausea or vomiting therefore NGT not warranted Continue current medical management Will follow Dr. Roberts has seen and examined patient, agrees with above. CT scan results and AXR personally reviewed and discussed with . Currently, CT with PO contrast shows no discrete transition point but rather dilated small bowel with gradual taper to decompressed bowel. He is not having any pain or nausea/ vomiting. No significant ng output. Bowels continue to be loose but are less bloody and more thick green now. Abdominal exam is benign with no tenderness or guarding. Labs are unimpressive (normal wbc ct, nl lactate). No signs of bowel ischemia or strangulation. ? partial sbo vs ileus. All the ct contrast has gone through and none is visible on today's xray. I do not think that surgical intervention will benefit him and the does not want surgery either. It is reasonable to try to feed him and see if he tolerates. Should he need surgery, is requesting a second surgical opinion. I will be on vacation after today - will sign pt out to [facility].
[2017-05-06] MEDS ORDERED: PIPERACILL/TAZOBAC CONSULT ACTIVE PRN (15:30)
[2017-05-06] MEDS ORDERED: PIPERACILL/TAZOBAC IV 4.5 GM in DEXTROSE 5% 100ML IV ONE (15:30)
--- NOTE | 2017-05-06 15:30 | Anesthesiology Progress Note ---
Anesthesia Progress Note Date of Service May 06, 2017. 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
[2017-05-06] MEDS ORDERED: THIAMINE HCL INJ 200 MG in SODIUM CHLORIDE 0.9% 50ML 50 ML IV ONE (16:00)
--- NOTE | 2017-05-06 16:00 | Infectious Disease Progress Nt ---
Progress Note Date of Service May 06, 2017. Subjective Pt evaluation today including: conversation w/ patient, physical exam, chart review, lab review, review of studies, conversation w/ small business consultant, review of inpatient medication list Patient remains agitated and disoriented. Temperature now down. Blood cultures remain negative. X-ray with findings consistent with small-bowel obstruction. CT scan of the head unremarkable, LP being planned. All Other Systems: Reviewed and Negative Medications Current Inpatient Medications Medications (Trade) Dose Ordered Sig/[place] Route Start Time Stop Time Status Last Admin Dose Admin Aspirin (Ecotrin Tab) 81 mg QPM PO 04/27/17 21:00 05/27/17 20:59 05/04/17 19:50 81 MG Cholecalciferol (Vitamin D Tab) 1,000 inter.unit QAM PO 04/27/17 09:00 05/27/17 08:59 Future Hold 05/04/17 07:50 1,000 INTER.UNIT Levothyroxine Sodium (Synthroid Tab) 25 mcg DAILYBB PO 04/27/17 06:00 05/27/17 05:59 Future Hold 05/04/17 05:54 25 MCG Montelukast Sodium (Singulair Tab) 10 mg HS PO 04/27/17 21:00 05/27/17 20:59 05/04/17 19:50 10 MG Multivitamins/ Minerals (Multivitamin W/ Minerals Tab) 1 tab DAILY PO 04/27/17 09:00 05/27/17 08:59 05/04/17 07:51 1 TAB Heparin Sodium (Porcine) (Heparin Sq 5000 Unit/0.5ml) 5,000 unit Q8 SQ 04/27/17 06:00 05/27/17 05:59 Future Hold 05/04/17 14:22 5,000 UNIT Heparin Sodium (Porcine) (Heparin 10 Unit/ ml 5 ml Flush) 5 ml PRN PRN FLUSH 04/28/17 01:30 05/28/17 01:29 05/05/17 10:46 5 ML Ranitidine HCl (zANTac TAB) 150 mg QAM PO 04/29/17 09:00 05/29/17 08:59 Future Hold 05/04/17 07:51 150 MG Pregabalin (Lyrica Cap) 100 mg TID PO 04/28/17 14:00 05/28/17 13:59 05/04/17 19:48 100 MG Acetaminophen (Tylenol Tab) 650 mg TID PRN PO 04/29/17 21:00 05/29/17 08:59 Oxycodone/ Acetaminophen (Percocet 10-325MG Tab) 1 tab Q4 PRN PO 04/29/17 20:00 05/10/17 22:59 05/04/17 19:49 1 TAB Ondansetron HCl (Zofran Odt) 4 mg Q8H PRN PO 04/30/17 08:45 05/30/17 08:44 Acetaminophen 100 ml @ 400 mls/hr Q8H PRN IV 05/05/17 04:00 06/04/17 03:59 05/05/17 12:51 400 MLS/HR Daptomycin 800 mg/ Sodium Chloride 66 ml @ 100 mls/hr DAILY@0600 IV 05/05/17 04:30 05/07/17 04:29 05/06/17 06:31 100 MLS/HR Famotidine 20 mg/ Dextrose 102 ml @ 200 mls/hr Q12H IV 05/05/17 05:00 06/04/17 04:59 05/06/17 04:51 200 MLS/HR Pantoprazole Sodium 40 mg/ Dextrose 100 ml @ 20 mls/hr Q5H IV 05/05/17 09:00 06/04/17 08:59 05/06/17 14:45 20 MLS/HR Ascorbic Acid 500 mg/Sodium Chloride 101 ml @ 202 mls/hr DAILY IV 05/05/17 09:00 06/04/17 08:59 05/06/17 08:10 202 MLS/HR Potassium Chloride/Dextrose/ Sod Cl 1,000 ml @ 175 mls/hr Q5H43M IV 05/05/17 11:00 06/04/17 10:59 05/06/17 13:24 175 MLS/HR Olanzapine (Zyprexa Zydis Od Tab) 5 mg HS PO 05/06/17 21:00 06/05/17 20:59 Lorazepam (Ativan Inj) 1 mg Q4H PRN IV 05/06/17 01:00 06/05/17 00:59 Levothyroxine Sodium 15 mcg/ Syringe 0.75 ml @ 2 mls/min DAILY@09 IV 05/06/17 09:00 06/05/17 08:59 05/06/17 09:40 2 MLS/MIN Piperacillin Sod/ Tazobactam Sod 4.5 gm/Dextrose 120 ml @ 200 mls/hr 1530 ONCE IV 05/06/17 15:30 05/06/17 16:05 Piperacillin Sod/ Tazobactam Sod 4.5 gm/Dextrose 120 ml @ 30 mls/hr Q8H IV 05/06/17 20:00 05/16/17 19:59 Piperacillin Sod/ Tazobactam Sod (Consult) 1 ea UD PRN N/A 05/06/17 15:30 06/05/17 15:29 Thiamine HCl 200 mg/Sodium Chloride 52 ml @ 208 mls/hr 1600 ONCE IV 05/06/17 16:00 05/06/17 16:14 Thiamine HCl 200 mg/Sodium Chloride 52 ml @ 208 mls/hr QAM IV 05/07/17 09:00 06/06/17 08:59 Objective Vital Signs Date Time Temp Pulse Resp B/P (MAP) Pulse Ox O2 Delivery O2 Flow Rate FiO2 05/06/17 15:49 37.3 95 139/ 96 4.0 05/06/17 15:35 37.3 88 20 143/54 97 4.0 05/06/17 14:57 37.0 92 20 128/59 (82) 91 4.0 05/06/17 12:00 Nasal Cannula 4.0 05/06/17 11:03 36.6 91 23 134/65 (88) 99 Nasal Cannula 4.0 05/06/17 08:00 Nasal Cannula 4.0 05/06/17 07:09 36.6 97 21 102/62 (75) 100 Nasal Cannula 4.0 05/06/17 04:00 Nasal Cannula 4.0 05/06/17 03:28 37.5 90 24 132/54 (80) 100 Nasal Cannula 4.0 05/05/17 23:59 Nasal Cannula 4.0 05/05/17 23:08 37.6 100 24 145/47 (79) 100 Nasal Cannula 2.0 05/05/17 20:00 97 Nasal Cannula 2.0 05/05/17 18:59 36.9 102 20 112/53 (72) 97 Nasal Cannula 2.0 05/05/17 17:14 37.5 05/05/17 16:00 93 Room Air 2.0 Physical Exam General Appearance: WD/WN, + mild distress Eyes: normal inspection, EOMI, sclerae normal ENT: normal ENT inspection, pharynx normal Neck: supple, no adenopathy, trachea midline Respiratory/Chest: chest non-tender, lungs clear, normal breath sounds, no respiratory distress Cardiovascular: regular rate, rhythm, no gallop, no murmur Abdomen: normal bowel sounds, non tender, soft, no organomegaly, + distended Extremities: non-tender, + inflammation (Left leg), + swelling (Left leg) Neurologic/Psychiatric: alert, oriented x 3 Skin: normal color, + pertinent finding (Slowly improving left leg cellulitis) Lymphatic: no adenopathy Laboratory Results Last 24 Hours Test 05/05/17 20:03 05/05/17 21:25 05/05/17 21:57 05/06/17 01:46 Sodium Level 151 mmol/L 152 mmol/L Potassium Level 3.7 mmol/L 3.8 mmol/L Chloride Level 122 mmol/L 123 mmol/L Carbon Dioxide Level 26 mmol/L 28 mmol/L Anion Gap 3.0 mmol/L 1.0 mmol/L Blood Urea Nitrogen 48 mg/dl 42 mg/dl Creatinine 1.90 mg/dl 1.80 mg/dl Est Creatinine Clear Calc Drug Dose 48.0 ml/min 50.7 ml/min Estimated GFR () 41.1 43.8 Estimated GFR (Non- 35.4 37.8 BUN/Creatinine Ratio 25.5 23.5 Random Glucose 104 mg/dl 101 mg/dl Calcium Level 7.9 mg/dl 8.1 mg/dl Ammonia 29.0 umol/L Lyme Disease IgG Antibody NEG Lyme Disease IgM Antibody NEG Arterial Blood pH 7.44 Arterial Blood Partial Pressure CO2 32 mmHg Arterial Blood Partial Pressure O2 79 mm/Hg Arterial Blood HCO3 21 mmol/L Arterial Blood Oxygen Saturation 95.1 % Arterial Blood Base Excess -2.4 mEq/L Arterial Blood Gas Delivery ROOM AIR Jean Claude Test POS Test 05/06/17 04:55 05/06/17 07:25 05/06/17 12:48 05/06/17 15:40 Sodium Level 150 mmol/L 148 mmol/L Potassium Level 3.6 mmol/L 3.7 mmol/L Chloride Level 121 mmol/L 120 mmol/L Carbon Dioxide Level 25 mmol/L 24 mmol/L Anion Gap 4.0 mmol/L 4.0 mmol/L Blood Urea Nitrogen 42 mg/dl 33 mg/dl Creatinine 1.80 mg/dl 1.70 mg/dl Est Creatinine Clear Calc Drug Dose 50.9 ml/min 53.9 ml/min Estimated GFR () 43.8 47.0 Estimated GFR (Non- 37.8 40.5 BUN/Creatinine Ratio 23.2 19.1 Random Glucose 105 mg/dl 145 mg/dl Calcium Level 8.0 mg/dl 7.8 mg/dl Phosphorus Level 2.3 mg/dl Magnesium Level 2.4 mg/dl Albumin 2.1 gm/dl 2.1 gm/dl White Blood Count 7.49 K/uL Red Blood Count 3.43 M/uL Hemoglobin 9.4 g/dL Hematocrit 30.9 % Mean Corpuscular Volume 90.1 fL Mean Corpuscular Hemoglobin 27.4 pg Mean Corpuscular Hemoglobin Concent 30.4 g/dl RDW Standard Deviation 55.3 fL RDW Coefficient of Variation 16.8 % Platelet Count 163 K/uL Mean Platelet Volume 11.3 fL Prothrombin Time 20.2 SECONDS Prothromb Time International Ratio 1.8 Total Bilirubin 0.3 mg/dl Aspartate Amino Transf (AST/SGOT) 15 U/L Alanine Aminotransferase (ALT/SGPT) 20 U/L Alkaline Phosphatase 52 U/L Total Protein 5.9 gm/dl Globulin 3.8 gm/dl Albumin/Globulin Ratio 0.6 Assessment and Plan (1) Hypothyroidism (2) Obesity (3) Hypertension (4) Acid reflux (5) Septic shock (6) Hypotension (7) Neuropathy Status: Chronic (8) Left leg cellulitis Status: Acute (9) Sleep apnea 58-year-old male with acute group B streptococcal sepsis with left lower extremity cellulitis and acute kidney injury, now improving. Has developed AMS change, with no obvious etiology and negative CT. Has had diarrhea but C. diff PCR negative and CT without new changes. Await findings from upcoming lumbar puncture. Will continue broad-spectrum antibiotics for now.
[2017-05-06 16:33] LABS: INR 1.4 (0.9-1.1)
[2017-05-06] MEDS ORDERED: MIDAZOLAM HCL 1 MG/ML 2ML VIAL ONE (17:34)
[2017-05-06] MEDS ORDERED: KETAMINE HCL INJ 50 MG/ML 10 ML VIAL ONE (17:34)
[2017-05-06] MEDS ORDERED: FENTANYL CITRATE INJ 50 MCG/1 ML 2 ML VIAL ONE (17:34)
[2017-05-06] MEDS ORDERED: DIAZEPAM INJ 5 MG/ML 2 ML CARP IV SCH (18:30)
--- NOTE | 2017-05-06 19:17 | DIAGNOSTIC IMAGING REPORT ---
LUMBAR PUNCTURE DIAGNOSTIC CLINICAL HISTORY: 66 years-old Male presenting with AMS. COMPARISON: CT from 05/05/2017. PROCEDURE: The procedure, risks and benefits were discussed with the patient including the risk of spinal headache, bleeding and infection. The patient agreed to the procedure and informed written consent was obtained. The procedure was performed by Dr. Jo following a timeout. The L3-4 interspinous space was targeted. Skin overlying the space was prepped and draped in the usual aseptic fashion and local anesthesia was achieved with 1% lidocaine. Under intermittent fluoroscopic guidance, a 20-gauge x 6 in. needle was inserted into the thecal sac. Opening pressure was obtained and prone positioning, which measured 240 mmH2O. A total of 8 mL of clear, slightly yellow-tinged cerebral spinal fluid was obtained and spread amongst 4 vials. The patient tolerated the procedure well. There were no immediate complications. The specimens were sent to the laboratory at the request of the referring physician. Reference range: Normal opening pressure 60-250 mmH2O (95% reference interval for lateral decubitus positioning). Fluoroscopy dosage: Not available. mGy. Fluoroscopy time: 12 seconds. Number of fluoroscopic spot images: 1. IMPRESSION: 1. Successful fluoroscopic guided lumbar puncture with removal of 8 mL of clear, slightly yellow-tinged cerebral spinal fluid. No immediate complications. 2. Normal opening pressure. Electronically signed by: Carlo Jo M.D. 05/06/2017 6:51 PM Dictated Date/Time: 05/06/2017 6:48 PM
[2017-05-06 19:37] LABS: CSF TOTAL PROTEIN 85.8 mg/dl (15.0-45.0)
[2017-05-06 19:57] LABS: CSF APPEARANCE CLEAR; CSF COLOR PALE YELLOW; CSF XANTHOCHROMIC XANTHOCHROMIC
[2017-05-06] MEDS ORDERED: PIPERACILL/TAZOBAC IV 4.5 GM in DEXTROSE 5% 100ML IV SCH (20:00)
--- NOTE | 2017-05-06 20:04 | Anesthesiology Progress Note ---
Anesthesia Post Op Note Date & Time May 06, 2017 at 20:04 Vital Signs Pain Intensity: 0.0 Vital Signs Past 12 Hours Date Time Temp Pulse Resp B/P (MAP) Pulse Ox O2 Delivery O2 Flow Rate FiO2 05/06/17 19:15 99 132/54 (80) 05/06/17 19:00 37.1 100 21 134/53 (80) 98 Nasal Cannula 4.0 05/06/17 16:17 37.5 103 18 124/55 98 05/06/17 16:03 37.1 99 20 136/51 97 05/06/17 16:00 37.1 93 20 136/51 95 4.0 05/06/17 15:49 37.3 95 139/ 96 4.0 05/06/17 15:35 37.3 88 20 143/54 97 4.0 05/06/17 14:57 37.0 92 20 128/59 (82) 91 4.0 05/06/17 12:00 Nasal Cannula 4.0 05/06/17 11:03 36.6 91 23 134/65 (88) 99 Nasal Cannula 4.0 Notes Mental Status: alert / awake / arousable, participated in evaluation Pt Amnestic to Procedure: Yes Nausea / Vomiting: adequately controlled Pain: adequately controlled Airway Patency, RR, SpO2: stable & adequate BP & HR: stable & adequate Hydration State: stable & adequate Anesthetic Complications: no major complications apparent
[2017-05-06] MEDS: ASPIRIN 81 MG ECTAB PO SCH (21:11)
[2017-05-06] MEDS: MONTELUKAST SOD 10 MG TAB PO SCH (21:12)
[2017-05-06] MEDS: OLANZAPINE ZYDIS 5 MG ORALLY DIS. TAB PO SCH (21:12)
[2017-05-06] MEDS ORDERED: PIPERACILL/TAZOBAC IV 4.5 GM in DEXTROSE 5% 100ML 100 ML IV SCH (22:00)
[2017-05-06] MEDS ORDERED: NURSING VERBAL MED ORDER ONE (22:45)
[2017-05-06] MEDS ORDERED: ALTEPLASE, RECOMBINANT 1 MG/ML 2 ML VIAL IV ONE (23:00)
[2017-05-06] MEDS: OXYCODONE/ACETAMINOPHEN 10/325MG TAB PO PRN (23:51)
[2017-05-07] VITALS (9 sets, daily range): BP systolic 101–138; BP diastolic 50–85; PULSE 77–109; TEMP 37–38.2; O2SAT 93–100
[2017-05-07 00:19] LABS: BUN/CREATININE RATIO 18.4 (10-20); CREATININE 1.7 mg/dl (0.60-1.40); POTASSIUM 3.9 mmol/L (3.5-5.1)
[2017-05-07] MEDS: PIPERACILL/TAZOBAC IV 4.5 GM in DEXTROSE 5% 100ML IV SCH ×3 (00:33→15:52)
[2017-05-07] MEDS: PANTOprazole INJ 40 MG in DEXTROSE 5% 100ML IV SCH ×5 (01:17→20:44)
[2017-05-07] MEDS: D5W AND 1/4NSS + 20MEQ KCL 1,000 ML IV SCH ×4 (01:18→18:14)
[2017-05-07 04:31] LABS: HEMATOCRIT 27.6 % (42-52); MEAN CELL VOLUME 90.2 fL (80-100); MEAN CORPUSCULAR HEMOGLOBIN 26.5 pg (25-34); MEAN CORPUSCULAR HGB CONC 29.3 g/dl (32-36); MEAN PLATELET VOLUME 11.4 fL (7.4-10.4); PLATELET COUNT 160 K/uL (130-400); RED BLOOD COUNT 3.06 M/uL (4.7-6.1); WHITE BLOOD COUNT 7.23 K/uL (4.8-10.8)
[2017-05-07 04:43] LABS: INR 1.3 (0.9-1.1); PROTHROMBIN TIME (PATIENT) 14.4 SECONDS (9.0-12.0)
[2017-05-07 04:56] LABS: CREATININE 1.8 mg/dl (0.60-1.40)
[2017-05-07 04:57] LABS: BUN/CREATININE RATIO 17.7 (10-20); CALCIUM 7.9 mg/dl (8.5-10.1); MAGNESIUM 2.2 mg/dl (1.8-2.4)
[2017-05-07 05:01] LABS: ALB/GLOB RATIO 0.5 (0.9-2); PHOSPHORUS 3.7 mg/dl (2.5-4.9)
[2017-05-07] MEDS: FAMOTIDINE IV INJ 20 MG in DEXTROSE 5% 100ML 100 ML IV SCH (05:12)
[2017-05-07 05:15] LABS: BASO % 0.6 %; BASO ABS # 0.04 K/uL (0-0.2); COMPLETE YES; DOHLE BODIES 1+; EOS % 1.5 %; IG% 1.5 %; LYMPH % 17.7 %; LYMPH ABS # 1.28 K/uL (1.2-3.4); MONO % 9.8 %; NEUT % 68.9 %
[2017-05-07] MEDS ORDERED: DIAZEPAM INJ 5 MG/ML 2 ML CARP IV SCH ×3 (07:15→21:00)
[2017-05-07] MEDS: SODIUM CHLORIDE 0.9% IV SCH (07:37)
[2017-05-07] MEDS: ASCORBIC ACID IV SCH (07:37)
[2017-05-07] MEDS: PREGABALIN 100 MG CAP PO SCH ×3 (07:47→20:44)
[2017-05-07] MEDS: CEROVITE ADV FORMULA TAB PO SCH (07:47)
[2017-05-07] MEDS: LEVOTHYROXINE SODIUM IV SCH (08:49)
[2017-05-07] MEDS ORDERED: THIAMINE HCL INJ 200 MG in SODIUM CHLORIDE 0.9% 50ML 50 ML IV SCH (09:00)
[2017-05-07] MEDS ORDERED: FoLIC ACID INJ 1 MG in SYRINGE 9.8 ML IV ONE (09:25)
[2017-05-07] MEDS ORDERED: LORAZEPAM 2 MG/ML 1 ML VIAL IV STA (09:25)
--- NOTE | 2017-05-07 09:29 | Nephrology Progress Note ---
Nephrology Progress Note Date of Service May 07, 2017. Chief Complaint JERRY due to septic shock in the setting of NSAID / KULDIP inhibitor therapy Subjective Mr. Camacho was seen & examined in the ICU this morning. A sitter was present at bedside. Patient is lethargic. He will open his eyes to verbal stimuli but was nonvocal this morning. Patient had low grade fever overnight. Rectal tube remains in place draining copious amounts of dark stool. Review of Systems Patient was unable to provide ROS Vital Signs Last 8 Hrs Date Time Temp Pulse Resp B/P (MAP) Pulse Ox O2 Delivery O2 Flow Rate FiO2 05/07/17 08:00 Nasal Cannula 4.0 05/07/17 07:03 37.0 77 18 104/63 (77) 99 Nasal Cannula 4.0 05/07/17 04:15 37.6 77 18 110/50 (70) 98 Nasal Cannula 4.0 05/07/17 04:00 Nasal Cannula 4.0 Last Recorded Weight Weight (Kilograms): 128.300 Physical Exam General Appearance: + pertinent finding (appears acutely ill.) Head: normocephalic, atraumatic Eyes: PERRL, EOMI Neck: + pertinent finding (dry mucous membranes) Respiratory/Chest: lungs clear Cardiovascular: + tachycardia Abdomen/GI: non tender (no bowel sounds. + tympani), + distended Genitourinary - Male: + pertinent finding (goode catheter draining ciera colored urine) Extremities/Musculoskelatal: no pedal edema Neurologic/Psych: + pertinent finding (lethargic) Family History Blood clots FH: diabetes mellitus FHx: pulmonary embolism Social History Drug Use: none Marital Status: Housing Status: lives with significant other Occupation: retired Laboratory Results Past 24 Hours 05/07/17 04:13 Red Blood Count 3.06, Mean Corpuscular Volume 90.2, Mean Corpuscular Hemoglobin 26.5, Mean Corpuscular Hemoglobin Concent 29.3, Mean Platelet Volume 11.4, Neutrophils (%) (Auto) 68.9, Lymphocytes (%) (Auto) 17.7, Monocytes (%) (Auto) 9.8, Eosinophils (%) (Auto) 1.5, Basophils (%) (Auto) 0.6, Neutrophils # (Auto) 4.98, Lymphocytes # (Auto) 1.28, Monocytes # (Auto) 0.71, Eosinophils # (Auto) 0.11, Basophils # (Auto) 0.04 05/06/17 12:48 05/06/17 23:41 05/07/17 04:13 Test 05/06/17 12:48 05/06/17 16:17 05/06/17 18:20 05/06/17 23:41 Prothrombin Time 20.2 SECONDS (9.0-12.0) 15.0 SECONDS (9.0-12.0) Prothromb Time International Ratio 1.8 (0.9-1.1) 1.4 (0.9-1.1) Anion Gap 4.0 mmol/L (3-11) 2.0 mmol/L (3-11) Est Creatinine Clear Calc Drug Dose 53.9 ml/min 53.9 ml/min Estimated GFR () 47.0 47.0 Estimated GFR (Non- 40.5 40.5 BUN/Creatinine Ratio 19.1 (10-20) 18.4 (10-20) Calcium Level 7.8 mg/dl (8.5-10.1) 8.0 mg/dl (8.5-10.1) Total Bilirubin 0.3 mg/dl (0.2-1) Aspartate Amino Transf (AST/SGOT) 15 U/L (15-37) Alanine Aminotransferase (ALT/SGPT) 20 U/L (12-78) Alkaline Phosphatase 52 U/L (45-117) Total Protein 5.9 gm/dl (6.4-8.2) Albumin 2.1 gm/dl (3.4-5.0) Globulin 3.8 gm/dl (2.5-4.0) Albumin/Globulin Ratio 0.6 (0.9-2) CSF Color PALE YELLOW CSF Appearance CLEAR CSF WBC 1 /uL (0-5) CSF RBC 540 /uL (0) CSF Xanthrochromic XANTHOCHROMIC CSF Cell Count Tube # 3 CSF Chemistry Tube # 1 CSF Glucose 58 mg/dl (40-70) CSF Total Protein 85.8 mg/dl (15.0-45.0) Test 05/07/17 04:13 White Blood Count 7.23 K/uL (4.8-10.8) Red Blood Count 3.06 M/uL (4.7-6.1) Hemoglobin 8.1 g/dL (14.0-18.0) Hematocrit 27.6 % (42-52) Mean Corpuscular Volume 90.2 fL (80-100) Mean Corpuscular Hemoglobin 26.5 pg (25-34) Mean Corpuscular Hemoglobin Concent 29.3 g/dl (32-36) Platelet Count 160 K/uL (130-400) Mean Platelet Volume 11.4 fL (7.4-10.4) Neutrophils (%) (Auto) 68.9 % Lymphocytes (%) (Auto) 17.7 % Monocytes (%) (Auto) 9.8 % Eosinophils (%) (Auto) 1.5 % Basophils (%) (Auto) 0.6 % Neutrophils # (Auto) 4.98 K/uL (1.4-6.5) Lymphocytes # (Auto) 1.28 K/uL (1.2-3.4) Monocytes # (Auto) 0.71 K/uL (0.11-0.59) Eosinophils # (Auto) 0.11 K/uL (0-0.5) Basophils # (Auto) 0.04 K/uL (0-0.2) RDW Standard Deviation 54.1 fL (36.4-46.3) RDW Coefficient of Variation 16.8 % (11.5-14.5) Immature Granulocyte % (Auto) 1.5 % Immature Granulocyte # (Auto) 0.11 K/uL (0.00-0.02) Dohle Bodies 1+ Prothrombin Time 14.4 SECONDS (9.0-12.0) Prothromb Time International Ratio 1.3 (0.9-1.1) Anion Gap 2.0 mmol/L (3-11) Est Creatinine Clear Calc Drug Dose 50.9 ml/min Estimated GFR () 43.8 Estimated GFR (Non- 37.8 BUN/Creatinine Ratio 17.7 (10-20) Calcium Level 7.9 mg/dl (8.5-10.1) Phosphorus Level 3.7 mg/dl (2.5-4.9) Magnesium Level 2.2 mg/dl (1.8-2.4) Total Bilirubin 0.4 mg/dl (0.2-1) Aspartate Amino Transf (AST/SGOT) 12 U/L (15-37) Alanine Aminotransferase (ALT/SGPT) 18 U/L (12-78) Alkaline Phosphatase 48 U/L (45-117) Total Protein 5.7 gm/dl (6.4-8.2) Albumin 2.0 gm/dl (3.4-5.0) Globulin 3.7 gm/dl (2.5-4.0) Albumin/Globulin Ratio 0.5 (0.9-2) Allergies Coded Allergies: Tetracycline (Verified Allergy, Unknown, SORES IN MOUTH, 04/26/17) Medications Current Inpatient Medications Medications (Trade) Dose Ordered Sig/[place] Route Start Time Stop Time Status Last Admin Dose Admin Aspirin (Ecotrin Tab) 81 mg QPM PO 04/27/17 21:00 05/27/17 20:59 05/06/17 21:11 81 MG Cholecalciferol (Vitamin D Tab) 1,000 inter.unit QAM PO 04/27/17 09:00 05/27/17 08:59 Future Hold 05/04/17 07:50 1,000 INTER.UNIT Levothyroxine Sodium (Synthroid Tab) 25 mcg DAILYBB PO 04/27/17 06:00 05/27/17 05:59 Future Hold 05/04/17 05:54 25 MCG Montelukast Sodium (Singulair Tab) 10 mg HS PO 04/27/17 21:00 05/27/17 20:59 05/06/17 21:12 10 MG Multivitamins/ Minerals (Multivitamin W/ Minerals Tab) 1 tab DAILY PO 04/27/17 09:00 05/27/17 08:59 05/04/17 07:51 1 TAB Heparin Sodium (Porcine) (Heparin Sq 5000 Unit/0.5ml) 5,000 unit Q8 SQ 04/27/17 06:00 05/27/17 05:59 Future Hold 05/04/17 14:22 5,000 UNIT Heparin Sodium (Porcine) (Heparin 10 Unit/ ml 5 ml Flush) 5 ml PRN PRN FLUSH 04/28/17 01:30 05/28/17 01:29 05/07/17 02:36 5 ML Ranitidine HCl (zANTac TAB) 150 mg QAM PO 04/29/17 09:00 05/29/17 08:59 Future Hold 05/04/17 07:51 150 MG Pregabalin (Lyrica Cap) 100 mg TID PO 04/28/17 14:00 05/28/17 13:59 05/06/17 21:11 100 MG Acetaminophen (Tylenol Tab) 650 mg TID PRN PO 04/29/17 21:00 05/29/17 08:59 Oxycodone/ Acetaminophen (Percocet 10-325MG Tab) 1 tab Q4 PRN PO 04/29/17 20:00 05/10/17 22:59 05/06/17 23:51 1 TAB Ondansetron HCl (Zofran Odt) 4 mg Q8H PRN PO 04/30/17 08:45 05/30/17 08:44 Acetaminophen 100 ml @ 400 mls/hr Q8H PRN IV 05/05/17 04:00 06/04/17 03:59 05/05/17 12:51 400 MLS/HR Famotidine 20 mg/ Dextrose 102 ml @ 200 mls/hr Q12H IV 05/05/17 05:00 06/04/17 04:59 05/07/17 05:12 200 MLS/HR Pantoprazole Sodium 40 mg/ Dextrose 100 ml @ 20 mls/hr Q5H IV 05/05/17 09:00 06/04/17 08:59 05/07/17 06:17 20 MLS/HR Ascorbic Acid 500 mg/Sodium Chloride 101 ml @ 202 mls/hr DAILY IV 05/05/17 09:00 06/04/17 08:59 05/07/17 07:37 202 MLS/HR Potassium Chloride/Dextrose/ Sod Cl 1,000 ml @ 175 mls/hr Q5H43M IV 05/05/17 11:00 06/04/17 10:59 05/07/17 07:06 175 MLS/HR Olanzapine (Zyprexa Zydis Od Tab) 5 mg HS PO 05/06/17 21:00 06/05/17 20:59 05/06/17 21:12 5 MG Lorazepam (Ativan Inj) 1 mg Q4H PRN IV 05/06/17 01:00 06/05/17 00:59 Levothyroxine Sodium 15 mcg/ Syringe 0.75 ml @ 2 mls/min DAILY@09 IV 05/06/17 09:00 06/05/17 08:59 05/07/17 08:49 2 MLS/MIN Piperacillin Sod/ Tazobactam Sod (Consult) 1 ea UD PRN N/A 05/06/17 15:30 06/05/17 15:29 Thiamine HCl 200 mg/Sodium Chloride 52 ml @ 208 mls/hr QAM IV 05/07/17 09:00 06/06/17 08:59 05/07/17 07:38 208 MLS/HR Piperacillin Sod/ Tazobactam Sod 4.5 gm/Dextrose 120 ml @ 30 mls/hr Q8H IV 05/07/17 00:00 05/17/17 00:00 05/07/17 07:39 30 MLS/HR Diazepam (Valium Inj) 7.5 mg BID IV 05/07/17 07:15 06/06/17 07:14 05/07/17 07:37 7.5 MG Impression (1) ATN (acute tubular necrosis) (2) Acute renal insufficiency (3) Hypokalemia (4) Septic shock (5) Calculus Of Kidney (6) Septicemia due to group B Streptococcus (7) Cellulitis Mr. Camacho has non oliguric JERRY due to ATN. He was admitted with diarrhea and septic shock from group B step bacteremia with cellulitis. Baseline creatinine had been 1.4 mg/dL c/w stage III CKD. Creatinine increased to 3.2 mg /dL on 05/01/17. He improved with IV hydration. ATN is likely both ischemic and septic complicated by NSAID and KULDIP use and iodinated contrast exposure on admission. Renal imaging has revealed a 15 mm R renal mass as well as non obstructing left renal calculi. There is no evidence of obstructive nephropathy. UA was notable for 3+ protein. Urine microscopy was acellular. Patient has developed a partial SBO. He has had excessive free water losses due to diarrhea and fever. Recommendations JERRY/ATN: -- Patient is nonoliguric. Urine output was 1900 cc last 24 hours -- Monitor serial PRP HYPERNATREMIA: -- Improving -- Patient has significant free water loss due to fever and diarrhea -- Continue D5 0.25NS at 175 cc/hr -- Monitor serial PRP GI: -- Persistent high volume diarrhea. Await further GI input RENAL MASS: -- Outpatient follow up with Dr. Francis CELLULITIS: -- LLE cellulitis is clinically improved. Consider narrowing spectrum or stopping antibiotics -- IV antibiotics as per primary service
[2017-05-07] MEDS ORDERED: LORAZEPAM 1 MG TAB PO PRN (09:30)
[2017-05-07] MEDS ORDERED: LORAZEPAM 2 MG/ML 1 ML VIAL IV PRN (09:30)
[2017-05-07] MEDS: LORAZEPAM 2 MG/ML 1 ML VIAL IV PRN ×2 (09:32→13:32)
--- NOTE | 2017-05-07 09:32 | Gastroenterology Progress Note ---
Progress Note Date of Service: May 07, 2017 Subjective Pt evaluation today including: physical exam, chart review, lab review, review of studies Patient sedated and unable to provide any history. is not at bedside this morning. He remains on a 1:1 status. Was noted to undergo a lumbar puncture yesterday. Culture is pending. Per nursing aid, he has not taken much PO. He did have sips of clears only this morning. Review of Systems unable to obtain as patient is sedated Medications Current Inpatient Medications Medications (Trade) Dose Ordered Sig/[place] Route Start Time Stop Time Status Last Admin Dose Admin Aspirin (Ecotrin Tab) 81 mg QPM PO 04/27/17 21:00 05/27/17 20:59 05/06/17 21:11 81 MG Cholecalciferol (Vitamin D Tab) 1,000 inter.unit QAM PO 04/27/17 09:00 05/27/17 08:59 Future Hold 05/04/17 07:50 1,000 INTER.UNIT Levothyroxine Sodium (Synthroid Tab) 25 mcg DAILYBB PO 04/27/17 06:00 05/27/17 05:59 Future Hold 05/04/17 05:54 25 MCG Montelukast Sodium (Singulair Tab) 10 mg HS PO 04/27/17 21:00 05/27/17 20:59 05/06/17 21:12 10 MG Multivitamins/ Minerals (Multivitamin W/ Minerals Tab) 1 tab DAILY PO 04/27/17 09:00 05/27/17 08:59 05/04/17 07:51 1 TAB Heparin Sodium (Porcine) (Heparin Sq 5000 Unit/0.5ml) 5,000 unit Q8 SQ 04/27/17 06:00 05/27/17 05:59 Future Hold 05/04/17 14:22 5,000 UNIT Heparin Sodium (Porcine) (Heparin 10 Unit/ ml 5 ml Flush) 5 ml PRN PRN FLUSH 04/28/17 01:30 05/28/17 01:29 05/07/17 02:36 5 ML Ranitidine HCl (zANTac TAB) 150 mg QAM PO 04/29/17 09:00 05/29/17 08:59 Future Hold 05/04/17 07:51 150 MG Pregabalin (Lyrica Cap) 100 mg TID PO 04/28/17 14:00 05/28/17 13:59 05/06/17 21:11 100 MG Acetaminophen (Tylenol Tab) 650 mg TID PRN PO 04/29/17 21:00 05/29/17 08:59 Oxycodone/ Acetaminophen (Percocet 10-325MG Tab) 1 tab Q4 PRN PO 04/29/17 20:00 05/10/17 22:59 05/06/17 23:51 1 TAB Ondansetron HCl (Zofran Odt) 4 mg Q8H PRN PO 04/30/17 08:45 05/30/17 08:44 Acetaminophen 100 ml @ 400 mls/hr Q8H PRN IV 05/05/17 04:00 06/04/17 03:59 05/05/17 12:51 400 MLS/HR Famotidine 20 mg/ Dextrose 102 ml @ 200 mls/hr Q12H IV 05/05/17 05:00 06/04/17 04:59 05/07/17 05:12 200 MLS/HR Pantoprazole Sodium 40 mg/ Dextrose 100 ml @ 20 mls/hr Q5H IV 05/05/17 09:00 06/04/17 08:59 05/07/17 06:17 20 MLS/HR Ascorbic Acid 500 mg/Sodium Chloride 101 ml @ 202 mls/hr DAILY IV 05/05/17 09:00 06/04/17 08:59 05/07/17 07:37 202 MLS/HR Potassium Chloride/Dextrose/ Sod Cl 1,000 ml @ 175 mls/hr Q5H43M IV 05/05/17 11:00 06/04/17 10:59 05/07/17 07:06 175 MLS/HR Olanzapine (Zyprexa Zydis Od Tab) 5 mg HS PO 05/06/17 21:00 06/05/17 20:59 05/06/17 21:12 5 MG Lorazepam (Ativan Inj) 1 mg Q4H PRN IV 05/06/17 01:00 06/05/17 00:59 Levothyroxine Sodium 15 mcg/ Syringe 0.75 ml @ 2 mls/min DAILY@09 IV 05/06/17 09:00 06/05/17 08:59 05/07/17 08:49 2 MLS/MIN Piperacillin Sod/ Tazobactam Sod (Consult) 1 ea UD PRN N/A 05/06/17 15:30 06/05/17 15:29 Thiamine HCl 200 mg/Sodium Chloride 52 ml @ 208 mls/hr QAM IV 05/07/17 09:00 06/06/17 08:59 05/07/17 07:38 208 MLS/HR Piperacillin Sod/ Tazobactam Sod 4.5 gm/Dextrose 120 ml @ 30 mls/hr Q8H IV 05/07/17 00:00 05/17/17 00:00 05/07/17 07:39 30 MLS/HR Diazepam (Valium Inj) 7.5 mg BID IV 05/07/17 07:15 06/06/17 07:14 05/07/17 07:37 7.5 MG Objective Vital Signs Date Time Temp Pulse Resp B/P (MAP) Pulse Ox O2 Delivery O2 Flow Rate FiO2 05/07/17 08:00 Nasal Cannula 4.0 05/07/17 07:03 37.0 77 18 104/63 (77) 99 Nasal Cannula 4.0 05/07/17 04:15 37.6 77 18 110/50 (70) 98 Nasal Cannula 4.0 05/07/17 04:00 Nasal Cannula 4.0 05/07/17 00:00 Nasal Cannula 4.0 05/06/17 22:54 37.6 94 18 95/59 (71) 100 Nasal Cannula 4.0 05/06/17 20:00 79 24 142/49 (80) 99 Nasal Cannula 4.0 05/06/17 20:00 99 Nasal Cannula 4.0 05/06/17 19:45 88 22 124/52 (76) 100 Nasal Cannula 4.0 05/06/17 19:30 77 23 126/42 (70) 98 Nasal Cannula 4.0 05/06/17 19:15 99 132/54 (80) 05/06/17 19:00 37.1 100 21 134/53 (80) 98 Nasal Cannula 4.0 05/06/17 16:17 37.5 103 18 124/55 98 05/06/17 16:03 37.1 99 20 136/51 97 05/06/17 16:00 37.1 93 20 136/51 95 4.0 05/06/17 16:00 95 Nasal Cannula 4.0 05/06/17 15:49 37.3 95 139/ 96 4.0 05/06/17 15:35 37.3 88 20 143/54 97 4.0 05/06/17 14:57 37.0 92 20 128/59 (82) 91 4.0 05/06/17 12:00 Nasal Cannula 4.0 05/06/17 11:03 36.6 91 23 134/65 (88) 99 Nasal Cannula 4.0 Physical Exam General Appearance: no apparent distress Respiratory/Chest: + decreased breath sounds (bases) Cardiovascular: regular rate, rhythm Abdomen: soft, + abnormal bowel sounds (hypoactive) Laboratory Results Last 24 Hours Test 05/06/17 12:48 05/06/17 16:17 05/06/17 18:20 05/06/17 23:41 Prothrombin Time 20.2 SECONDS 15.0 SECONDS Prothromb Time International Ratio 1.8 1.4 Sodium Level 148 mmol/L 147 mmol/L Potassium Level 3.7 mmol/L 3.9 mmol/L Chloride Level 120 mmol/L 119 mmol/L Carbon Dioxide Level 24 mmol/L 26 mmol/L Anion Gap 4.0 mmol/L 2.0 mmol/L Blood Urea Nitrogen 33 mg/dl 31 mg/dl Creatinine 1.70 mg/dl 1.70 mg/dl Est Creatinine Clear Calc Drug Dose 53.9 ml/min 53.9 ml/min Estimated GFR () 47.0 47.0 Estimated GFR (Non- 40.5 40.5 BUN/Creatinine Ratio 19.1 18.4 Random Glucose 145 mg/dl 115 mg/dl Calcium Level 7.8 mg/dl 8.0 mg/dl Total Bilirubin 0.3 mg/dl Aspartate Amino Transf (AST/SGOT) 15 U/L Alanine Aminotransferase (ALT/SGPT) 20 U/L Alkaline Phosphatase 52 U/L Total Protein 5.9 gm/dl Albumin 2.1 gm/dl Globulin 3.8 gm/dl Albumin/Globulin Ratio 0.6 CSF Color PALE YELLOW CSF Appearance CLEAR CSF WBC 1 /uL CSF RBC 540 /uL CSF Xanthrochromic XANTHOCHROMIC CSF Cell Count Tube # 3 CSF Chemistry Tube # 1 CSF Glucose 58 mg/dl CSF Total Protein 85.8 mg/dl Test 05/07/17 04:13 White Blood Count 7.23 K/uL Red Blood Count 3.06 M/uL Hemoglobin 8.1 g/dL Hematocrit 27.6 % Mean Corpuscular Volume 90.2 fL Mean Corpuscular Hemoglobin 26.5 pg Mean Corpuscular Hemoglobin Concent 29.3 g/dl Platelet Count 160 K/uL Mean Platelet Volume 11.4 fL Neutrophils (%) (Auto) 68.9 % Lymphocytes (%) (Auto) 17.7 % Monocytes (%) (Auto) 9.8 % Eosinophils (%) (Auto) 1.5 % Basophils (%) (Auto) 0.6 % Neutrophils # (Auto) 4.98 K/uL Lymphocytes # (Auto) 1.28 K/uL Monocytes # (Auto) 0.71 K/uL Eosinophils # (Auto) 0.11 K/uL Basophils # (Auto) 0.04 K/uL RDW Standard Deviation 54.1 fL RDW Coefficient of Variation 16.8 % Immature Granulocyte % (Auto) 1.5 % Immature Granulocyte # (Auto) 0.11 K/uL Dohle Bodies 1+ Prothrombin Time 14.4 SECONDS Prothromb Time International Ratio 1.3 Sodium Level 147 mmol/L Potassium Level 4.0 mmol/L Chloride Level 120 mmol/L Carbon Dioxide Level 25 mmol/L Anion Gap 2.0 mmol/L Blood Urea Nitrogen 32 mg/dl Creatinine 1.80 mg/dl Est Creatinine Clear Calc Drug Dose 50.9 ml/min Estimated GFR () 43.8 Estimated GFR (Non- 37.8 BUN/Creatinine Ratio 17.7 Random Glucose 109 mg/dl Calcium Level 7.9 mg/dl Phosphorus Level 3.7 mg/dl Magnesium Level 2.2 mg/dl Total Bilirubin 0.4 mg/dl Aspartate Amino Transf (AST/SGOT) 12 U/L Alanine Aminotransferase (ALT/SGPT) 18 U/L Alkaline Phosphatase 48 U/L Total Protein 5.7 gm/dl Albumin 2.0 gm/dl Globulin 3.7 gm/dl Albumin/Globulin Ratio 0.5 Assessment and Plan 1. On clear liquid diet at present. 2. Patient for lumbar puncture yesterday under anesthesia. Culture pending. 3. H&H has dropped slightly to 8.1 today from 9.4. Continue PPI ggt. Discussed with Dr. Medina. Check an abdominal series today to evaluate bowel gas pattern. Additional recommendations pending results of imaging. 4. Continue supportive care per primary team. Discussed case in detail with Dr. Jose, as well as Dr. Stock of Surgery. Dr. Stock recommended an UGI with SBFT for more definitive evaluation of Small bowel. H/H stable overnight, and I am hesitant to perform an EGD secondary to air insufflation in patient with questionable Small bowel obstruction ID following patient, and making recommendations on Abx coverage. Still with intermittent fevers. Question need for MATY to ensure no vegetations Continue Protonix gtt. Questionable history of alcohol abuse as states he formerly drank approximately 2 beers per night, however, has not drank in over a year. Continue supportive care
--- NOTE | 2017-05-07 10:44 | Family Medicine Progress Note ---
Progress Note Date of Service May 07, 2017. Subjective Pt evaluation today including: conversation w/ patient, conversation w/ family , chart review, lab review The patient was seen and examined at bedside. Delirium improved overnight. Overnight doctor barely had any calls on the pt. Overnight events include: * Low grade fever overnight. * Hemoglobin has dropped to 8.1 * Na+ was 147 (excellent) * Pt is still in restraints. Patient is resting comfortably in bed. Sleeping. Eating and urinating well. Plan of care was described to the patient and all questions were answered. *Update: 2pm - Pt was unable to swallow his Percocet pill and it was discarded. tried again and gave him one from her purse which the patient took around 11:30am. I explained to the that all medications pt takes must be given and administered from the nursing staff and that she should not give his home meds. verbalized understanding and was remorseful. *Update: 2:15pm - pt is complaining of bilateral lower extremity pain when the wound care nurse was changing his dressing. Constitutional: No fever, No chills, No sweats ENT: No hearing loss Respiratory: No cough, No sputum Abdomen: + pain (Pt is now complaining of bilateral leg pain. ) Endo: No fatigue Skin: No rash Objective Physical Exam Extremities: + pertinent finding (Left lower extremity: markedly improve erythema, 4cm inside the border margins. ) Notes: General Appearance: WD/WN, + obese, soft restraints continue to be in place. Respiratory/Chest: chest non-tender, lungs clear, normal breath sounds, no respiratory distress, no accessory muscle use Cardiovascular: regular rate, rhythm, no edema, no gallop, no JVD, no murmur Abdomen: normal bowel sounds, non tender, soft, no organomegaly, no pulsatile mass, + pertinent finding (Abdomen is soft, non tender to deep palpation. ) Extremities: normal range of motion, non-tender, normal inspection, no pedal edema, + pertinent finding (dressing on left lower leg intact. Pt has a goode draining concentrated yellow urine and a rectal tube draining dark green liquid material. ) Neurologic/Psychiatric: alert, + pertinent finding ( Pt is more oriented today , answering questions appropriately, some babbling of nonsensical sounds. ) Assessment and Plan 66M presented with fever and hypotension - diagnosed with sepsis secondary to cellulitis. Hospital course is complicated by a bowel obstruction which required NG tube placement. Pt has had loose stools during his entire admission with increasing frequency. C. Diff was repeated and continues to be negative. Pt does not have any signs of UTI. X-ray showed worsening SBO. Stat surgical consult = no surgical intervention. CT Abdo and Pelvis confirmed X -ray abdo findings. Pt was progressed to clear liquid diet. Continues to have AMS. Additional history reveals that the pt drinks 2 beers per day. Showing signs of withdrawal and confabulation. Valium has significantly improved the pt 's agitation but he continues to be confused. Tonight we will increase the Valium dose to 10mg. Pt was placed on the AWSS protocol. IV thiamine and IV folate were also added. Encephalopathy, 2/2 sepsis of LLE vs Narcotics/?alcohol withdrawal vs hospital acquired delirium vs Hypernatremia - AMS from 05/04/17 continued, an update to the history shows that the pt might be in DT. - CT head WNL - Concern of alcohol/opiate withdrawal considering the history. - LP results: WBC =1, RBC =500, Protein 85, LDH Pending. - unlikely infectious. - Repeat Blood and Urine cultures from 05/05/17 = No growth to date - Continue correcting with D5+quarter NSS+20meq at 175mls/hr. - Continue Dapto and Zosyn to cover Gram Negatives. - Adding AWSS, prn Ativan per protocol and 10mg IV of Valium BID. - soft strains Sepsis with group B strep bacteremia secondary to chronic left lower extremity cellulitis - Wound care on board, Wound and cellulitis appears to be healing very well, the erythema is around 4cm within the previously outlined borders on admission. - Pain control with Percocet and morphine as needed. - ABx as above. Anemia with heme positve stool Pt hemoglobin dipped from 9.4-->8.1-->8.4 Will continue to monitor. PPI drip as above. GI following. Ordered KUB Severe Diarrhea According to pt takes almost schedule Percocets TID, diarrhea possibly sec to withdrawal from opioids. Pt today has began verbalizing his lower extremity pain, he will be getting his Lyrica and Percocets PO, we expect the diarrhea to improve. Continue with rectal tube. Hypernatremia 2/2 Dehydration 1900mls of urine in 24 hours. Cr 2.7-->2.3-->1.7-->2.2-->1.7-->1.8 pt is likely dehydrated. Per discussion with Dr. Godfrey, will rehydrate with IVF as above. Daily BMPs. Bowel obstruction (recurrent?) Pt continues to have multiple loose green positive dark BMs, C. Diff negative x 3. X-ray confirm presence of continued obstructive bowel gas pattern. Surgery following. Lower Extremity Pain 2/2 Radiculopathy This is a known condition, pt is s/p laminectomy. For the first time pt began verbalizing his lower extremity bilateral foot pain , will start with Lyrica at home dose PO and progress to Percocet TID PRN. History of several bacteremias/sepsis including meningitis, pneumonia, cellulitis: Suspect any underlying complement/ immunoglobulin deficiency Recommend outpatient workup Renal mass on CT: Stable since 2014 - will follow up with Dr. Francis at discharge made aware Right adrenal gland nodule: Likely incidentaloma GI / Diet Continue PPI drip for heme positive stool. Clear fluid diet, progress as tolerated. Asthma Continue montelukast GUS Continue home CPAP at night Peripheral Neuropathy Continue pregabalin (renally dosed) Hypothyroidism Continue levothyroxine 25 mcg IV DVT Prophylaxis Heparin 5000 units SQ Q8H Disposition Tele FULL CODE Resident Involvement: Resident Care Provided Care Provided: Adult Hospital Medicine Reviewed: Pt Seen/Exam by Me History visited multiple times through the day. somnolent most of the day. on waking up - more coherent at bedside. continues to have loose stool but amount decreased still having fever unable to get any ROS Constitutional: acknowledges: fever General Appearance: no apparent distress, other (continues to be in soft strains) Respiratory: lungs clear, no respiratory distress Cardiovascular: regular rate, rhythm Gastrointestinal: normal bowel sounds, non tender, soft Neurologic/Psychiatric: other (somnolent) Skin Characteristics: other (left leg with compression dressing) Assessment/Plan Resident Physician Supervision Note: I was present with Dr. Hurtado in bedside. I verified the le history and physical, reviewed labs and image studies, discussed the case with the resident and agree with the findings and care plan. See other note - persistent SBO on KUB. continuing to have fever, diarrhea and still confused. GI unable to evaluate. Spoke with Dr. Medina and Dr. Stock - considering the complexity of patient will transfer to tertiary care. Spent 60min to transfer him
[2017-05-07] MEDS: ACETAMINOPHEN IV 100 ML IV PRN ×2 (11:01→19:30)
--- NOTE | 2017-05-07 11:07 | Clinical Documentation Query ---
CLINICAL DOCUMENTATION QUERY 66 year old male who presents to the Emergency Room with septic shock from LLE cellulitis. Documentation has included AMS in setting of same as well as hypernatremia and question of ETOH withdrawal. In your clinical opinion is this patient being managed for: (x ) Metabolic/Septic encephalopathy treated with Daptomycin, Flagyl, Zosyn, D5% and quarter NSS, daily PRP's, and scheduled benzo ( ) Other explanation of clinical findings (Please Explain) ( ) Unable to determine (Please Define) ( ) Need to Discuss ( ) Not Agree The medical record reflects the following clinical findings, treatment, and risk factors. Clinical Indicators: AMS, hypernatremia, ?ETOH withdrawl, Sepsis Treatment: Daptomycin, Flagyl, Zosyn, D5% and quarter NSS, daily PRP's, and scheduled benzo Risk Factors: Age, infection, electrolyte imbalances, chemical dependence. Please clarify and document your clinical opinion in the progress notes and discharge summary. Terms such as "probable", "suspected", "likely", "questionable", "possible", or "still to be ruled out" are acceptable. IF IN AGREEMENT, YOU MUST DOCUMENT ABOVE DIAGNOSTIC STATEMENT IN DAILY PROGRESS NOTES AND DISCHARGE SUMMARY. This document is not part of the patient's record. Thank You, Gopal Rico, RN [phone]
--- NOTE | 2017-05-07 11:51 | DIAGNOSTIC IMAGING REPORT ---
ABDOMEN 2VIEW W/PA CHEST RTN CLINICAL HISTORY: 66 years-old Male presenting with SBO. TECHNIQUE: Semiupright AP view of the chest was obtained in addition to a left lateral decubitus and supine views of the abdomen. COMPARISON: 05/06/2017. FINDINGS: Right internal jugular central venous catheter terminates in the superior vena cava. Cardiac silhouette enlargement. Lungs and pleural spaces clear. Osseous structures normal. Multiple air-fluid levels in the distended small bowel in the left mid abdomen. Apparent small bowel diameter measures up to 5 cm, which may be affected by magnification. No gross pneumoperitoneum. Image quality is degraded by positioning of the left upper extremity across the abdomen. IMPRESSION: 1. Persistent findings of small bowel distention, which is favored to represent obstruction. No evidence of free gas. Electronically signed by: Carlo Jo M.D. 05/07/2017 11:50 AM Dictated Date/Time: 05/07/2017 11:46 AM
[2017-05-07] MEDS: OXYCODONE/ACETAMINOPHEN 10/325MG TAB PO PRN (12:04)
[2017-05-07 13:10] LABS: HEMATOCRIT 27.1 % (42-52)
[2017-05-07] MEDS ORDERED: NURSING VERBAL MED ORDER ONE (16:45)
--- NOTE | 2017-05-07 17:13 | Surgery Progress Note ---
Surgery Progress Note Date of Service May 07, 2017. Subjective Patient is presently sedated and cannot answer questions. He has not had any vomiting since his NG tube was removed. He has had multiple bowel movements but the amount of liquid stool has decreased. Objective Vital Signs: Date Time Temp Pulse Resp B/P (MAP) Pulse Ox O2 Delivery O2 Flow Rate FiO2 05/07/17 15:19 37.7 79 20 101/54 (70) 94 Nasal Cannula 05/07/17 12:00 Nasal Cannula 4.0 05/07/17 10:52 38.2 109 30 138/85 (102) 93 CPAP 05/07/17 08:00 Nasal Cannula 4.0 05/07/17 07:03 37.0 77 18 104/63 (77) 99 Nasal Cannula 4.0 05/07/17 04:15 37.6 77 18 110/50 (70) 98 Nasal Cannula 4.0 05/07/17 04:00 Nasal Cannula 4.0 05/07/17 00:00 Nasal Cannula 4.0 05/06/17 22:54 37.6 94 18 95/59 (71) 100 Nasal Cannula 4.0 05/06/17 20:00 79 24 142/49 (80) 99 Nasal Cannula 4.0 05/06/17 20:00 99 Nasal Cannula 4.0 05/06/17 19:45 88 22 124/52 (76) 100 Nasal Cannula 4.0 05/06/17 19:30 77 23 126/42 (70) 98 Nasal Cannula 4.0 05/06/17 19:15 99 132/54 (80) 05/06/17 19:00 37.1 100 21 134/53 (80) 98 Nasal Cannula 4.0 Abdomen: normal bowel sounds, non tender (patient cannot report tenderness due to the sedation but there is no facial grimacing or involuntary guarding with exam), non distended, soft Laboratory Results: Results Past 24 Hours Test 05/06/17 18:20 05/06/17 23:41 05/07/17 04:13 05/07/17 12:24 Range/Units CSF Color PALE YELLOW CSF Appearance CLEAR CSF WBC 1 0-5 /uL CSF RBC 540 0 /uL CSF Xanthrochromic XANTHOCHROMIC CSF Cell Count Tube # 3 CSF Chemistry Tube # 1 CSF Glucose 58 40-70 mg/dl CSF Total Protein 85.8 15.0-45.0 mg/dl Sodium Level 147 147 136-145 mmol/L Potassium Level 3.9 4.0 3.5-5.1 mmol/L Chloride Level 119 120 98-107 mmol/L Carbon Dioxide Level 26 25 21-32 mmol/L Anion Gap 2.0 2.0 3-11 mmol/L Blood Urea Nitrogen 31 32 7-18 mg/dl Creatinine 1.70 1.80 0.60-1.40 mg/dl Est Creatinine Clear Calc Drug Dose 53.9 50.9 ml/min Estimated GFR () 47.0 43.8 Estimated GFR (Non- 40.5 37.8 BUN/Creatinine Ratio 18.4 17.7 10-20 Random Glucose 115 109 70-99 mg/dl Calcium Level 8.0 7.9 8.5-10.1 mg/dl White Blood Count 7.23 4.8-10.8 K/uL Red Blood Count 3.06 4.7-6.1 M/uL Hemoglobin 8.1 8.4 14.0-18.0 g/dL Hematocrit 27.6 27.1 42-52 % Mean Corpuscular Volume 90.2 80-100 fL Mean Corpuscular Hemoglobin 26.5 25-34 pg Mean Corpuscular Hemoglobin Concent 29.3 32-36 g/dl Platelet Count 160 130-400 K/uL Mean Platelet Volume 11.4 7.4-10.4 fL Neutrophils (%) (Auto) 68.9 % Lymphocytes (%) (Auto) 17.7 % Monocytes (%) (Auto) 9.8 % Eosinophils (%) (Auto) 1.5 % Basophils (%) (Auto) 0.6 % Neutrophils # (Auto) 4.98 1.4-6.5 K/uL Lymphocytes # (Auto) 1.28 1.2-3.4 K/uL Monocytes # (Auto) 0.71 0.11-0.59 K/uL Eosinophils # (Auto) 0.11 0-0.5 K/uL Basophils # (Auto) 0.04 0-0.2 K/uL RDW Standard Deviation 54.1 36.4-46.3 fL RDW Coefficient of Variation 16.8 11.5-14.5 % Immature Granulocyte % (Auto) 1.5 % Immature Granulocyte # (Auto) 0.11 0.00-0.02 K/uL Dohle Bodies 1+ Prothrombin Time 14.4 9.0-12.0 SECONDS Prothromb Time International Ratio 1.3 0.9-1.1 Phosphorus Level 3.7 2.5-4.9 mg/dl Magnesium Level 2.2 1.8-2.4 mg/dl Total Bilirubin 0.4 0.2-1 mg/dl Aspartate Amino Transf (AST/SGOT) 12 15-37 U/L Alanine Aminotransferase (ALT/SGPT) 18 12-78 U/L Alkaline Phosphatase 48 45-117 U/L Total Protein 5.7 6.4-8.2 gm/dl Albumin 2.0 3.4-5.0 gm/dl Globulin 3.7 2.5-4.0 gm/dl Albumin/Globulin Ratio 0.5 0.9-2 Test 05/07/17 16:38 Range/Units Lactic Acid Level 1.5 0.4-2.0 mmol/L Microbiology Results 05/06/17 Gram Stain - Final, Resulted 05/06/17 CSF Culture - Preliminary, Resulted NO GROWTH TO DATE. Assessment & Plan The etiology of this patient's decreased H&H as well as fevers unclear. Abdominal x-ray was again reviewed. There are still some dilated small bowel loops but his abdominal exam is not consistent with small bowel obstruction. To further delineate this more definitively I would recommend a small bowel follow-through study with contrast administered via NG tube.
[2017-05-07 18:19] LABS: HEMATOCRIT 28.1 % (42-52)
--- NOTE | 2017-05-07 19:21 | Progress Note ---
Progress Note Date of Service May 07, 2017. Progress Note Discussed case with Dr. Medina, Dr. Stock Considering complexity of case, persistent fever, confusion, SBO, GI bleed - discussed with about transfer to tertiary care facility Dr. Mayfield accepting physician at [facility] [place]
[2017-05-07] MEDS ORDERED: DAPTOmycin IV 800 MG in SODIUM CHLORIDE 0.9% 50ML 50 ML IV SCH (19:30)
--- NOTE | 2017-05-07 20:11 | Discharge Summary ---
Discharge Summary Date of Service May 07, 2017. (Aníbal Hurtado M.D.) Discharge Summary Admission Date: Apr 26, 2017 at 20:43 Discharge Disposition: Acute care facility ([facility]) Principal Diagnosis: Encephalopathy 2/2 Sepsis from LLE/Unknown Source vs Delerium Tremens Problems/Secondary Diagnoses: (1) Neuropathy Status: Chronic Procedures: Most Recent Imaging: ABDOMEN 2VIEW W/PA CHEST RTN (05/07/17) CLINICAL HISTORY: 66 years-old Male presenting with SBO. TECHNIQUE: Semiupright AP view of the chest was obtained in addition to a left lateral decubitus and supine views of the abdomen. COMPARISON: 05/06/2017. FINDINGS: Right internal jugular central venous catheter terminates in the superior vena cava. Cardiac silhouette enlargement. Lungs and pleural spaces clear. Osseous structures normal. Multiple air-fluid levels in the distended small bowel in the left mid abdomen. Apparent small bowel diameter measures up to 5 cm, which may be affected by magnification. No gross pneumoperitoneum. Image quality is degraded by positioning of the left upper extremity across the abdomen. IMPRESSION: 1. Persistent findings of small bowel distention, which is favored to represent obstruction. No evidence of free gas. ABDOMEN 2 VIEWS (05/06/2017) CLINICAL HISTORY: Small bowel obstruction COMPARISON STUDY: 05/05/2017 FINDINGS: There are persistent dilated small bowel loops measuring up to 5.4 cm in diameter. There are multiple air-fluid levels. No free air is visualized. There is no colonic distention. The findings are consistent with a small bowel obstruction. IMPRESSION: Persistent small bowel obstructive pattern. No evidence of free air. Small bowel loops measure up to 5.4 cm in diameter uncorrected for magnification CT SCAN OF THE BRAIN WITHOUT IV CONTRAST (05/05/17) CLINICAL HISTORY: Mental status change. COMPARISON STUDY: CT of the brain dated 04/26/2017. TECHNIQUE: Unenhanced axial CT scan of the brain is performed from the vertex to the skull base. CT DOSE: 1647.88 mGycm FINDINGS: Brain parenchyma: There are age-related involutional changes noting mild subcortical and periventricular microangiopathic change. There is no hemorrhage, mass effect, or evidence of acute territorial ischemia by CT criteria. Aguilera-white matter is preserved. No extra-axial fluid collection is seen. Ventricles, sulci, cisterns: Prominent secondary to involutional change. Intracranial vasculature: There is atherosclerotic calcification of the cavernous carotid and vertebral arteries. Calvarium: Unremarkable. Sinuses and mastoids: Trace mucosal thickening is seen in the left maxillary antrum. The remaining visualized paranasal sinuses are clear. There is a large left mastoid effusion. The right mastoid air cells are well pneumatized. Orbits: The bony orbits are grossly intact. There is a left ocular lens implant. Soft tissues: A 1.9 cm sebaceous cyst is noted in the left parietal scalp. IMPRESSION: 1. There is no hemorrhage, mass effect, or evidence of acute territorial ischemia by CT criteria. There has been no significant change from 04/26/2017. 2. Large left mastoid effusion. CT SCAN OF THE ABDOMEN AND PELVIS WITHOUT IV CONTRAST (05/05/17) CLINICAL HISTORY: Follow-up small bowel obstruction. COMPARISON STUDY: Abdominal CT dated 05/01/2017. TECHNIQUE: CT scan of the abdomen and pelvis is performed from the lung bases to the proximal femora. Images are reviewed in the axial, sagittal, and coronal planes. IV contrast was not administered for this examination as per the referring clinician. Note that the examination was performed in significantly suboptimal examination without IV contrast. The Examination is also degraded by large body habitus, and by streak artifact from the patient's body wall abutting the CT gantry. Automated dose control exposure was utilized. A dose lowering technique was utilized adhering to the principles of ALARA. CT DOSE: 1427.71 mGycm FINDINGS: Lung bases: The heart is enlarged and there is a small pericardial effusion. The coronary arteries and aortic valve leaflets are calcified. The lung bases are clear noting dependent atelectasis. There is a small hiatal hernia. Liver: The unenhanced liver is normal in size and contour. The liver demonstrates diffusely diminished attenuation consistent with hepatic steatosis. Fatty sparing is seen adjacent to gallbladder fossa. There is no intrahepatic biliary ductal dilatation. Gallbladder: Layering gallstones are suspected. Spleen: Normal in size and attenuation. Pancreas: The unenhanced pancreas is atrophic and grossly unremarkable. Adrenal glands: An indeterminant 2.0 cm right adrenal nodule is unchanged. The left adrenal gland is normal in appearance. Kidneys: The unenhanced kidneys are atrophic and without hydronephrosis. There is a 13 mm nonobstructing calculus/calculi present in the lower pole of the left kidney. There are no right renal calculi identified. A 5.4 cm exophytic cyst arises from the anterior aspect of the left kidney. A 1.7 cm hyperdense lesion arising from the interpolar left kidney on image #253 is unchanged. This is pathologically indeterminant but likely represents a complex/hemorrhagic cyst. Additional indeterminant hypodensities are seen in the right kidney. Abdominal vasculature: The abdominal aorta is normal in course and caliber noting advanced atherosclerotic calcification. Bowel: A rectal tube is in place. Postoperative change is suggested in the right colon. The proximal small bowel loops are distended and fluid-filled, measuring up to 4.4 cm in transverse diameter. Enteric contrast reaches the mid jejunum. The small bowel gradually decrease is in caliber, and the distal small bowel as well as the colon are decompressed. A discrete transition point is not identified. No focally thick walled bowel loops are identified. There is no pneumatosis intestinalis or portal venous gas. Peritoneum: Trace fluid is seen in the left paracolic gutter. No intraperitoneal free air is identified. There is a fat-containing umbilical hernia seen on image #370. Lymphadenopathy: There are mildly enlarged left iliac chain lymph nodes. These measure up to 1.6 cm in short axis. No retroperitoneal or mesenteric lymphadenopathy is seen. There is an enlarged gastrohepatic node seen on image #130 which measures 1.7 cm in short axis. Pelvic viscera: The bladder is decompressed around a Goode catheter and not well evaluated. The prostate gland is diminutive. There is a fat-containing right inguinal hernia. Skeletal structures: The skeletal structures are osteopenic. There is moderate lumbosacral spondylosis. Postoperative change is identified in the thoracic and lumbar spine. No lytic or blastic lesions are seen. IMPRESSION: 1. Significantly suboptimal examination without IV contrast. 2. The proximal small bowel loops are distended and fluid-filled. This gradually tapers in caliber, and the distal small bowel as well as the colon are decompressed. A discrete transition point is not identified. This suggests some degree of small bowel obstruction. Clinical correlation will be required. 3. There is trace fluid in the left paracolic gutter. No intraperitoneal free air is seen, and there are no focally thick walled bowel loops identified. 4. Hepatic steatosis. 5. Cardiomegaly. 6. Nonobstructing left renal calculus. 7. There are mildly enlarged gastrohepatic and left iliac chain lymph nodes. These are of indeterminant etiology and significance. 8. An indeterminant right adrenal nodule is unchanged. 9. Additional findings as above. LEFT VENOUS DOPP LOWER EXT UNILAT (04/27/17) CLINICAL HISTORY: LE swelling and erythema and warmth pain. Edema. TECHNIQUE: Venous Doppler COMPARISON STUDY: None FINDINGS: Normal venous flow throughout. Compressibility and augmentation characteristics are unremarkable. IMPRESSION: Normal venous Doppler left leg (Aníbal Hurtado M.D.) Discharge Exam Subjective Pt evaluation today including: conversation w/ patient, conversation w/ family , chart review, lab review The patient was seen and examined at bedside. Delirium improved overnight compared to previous day and previous night. Overnight events include: * Low grade fever. * Hemoglobin has dropped to 8.1 * Na+ was 147 (improved from 150) * Pt is still in loose soft restraints. Patient is resting comfortably in bed. Sleeping. Rectal and goode tube in place. Pt managed to eat some jello this morning. Plan of care was described to the patient and and all questions were answered. *Update: 2pm - Pt was unable to swallow his Percocet pill and it was discarded. tried again and gave him one from her purse which the patient took around 11:30am. I explained to the that all medications pt takes must be given and administered from the nursing staff and that she should not give his home meds. verbalized understanding and was remorseful. *Update: 2:15pm - pt is complaining of bilateral lower extremity pain when the wound care nurse was changing his dressing. Constitutional: No fever, No chills, No sweats ENT: No hearing loss Respiratory: No cough, No sputum Abdomen: + pain (Pt is now complaining of bilateral leg pain - this is new, previously he denied being in any pain during this admission, even when he was previously oriented x 3. ) Endo: No fatigue Skin: No rash Physical Exam General Appearance: WD/WN, + obese, soft restraints continue to be in place. Respiratory/Chest: chest non-tender, lungs clear, normal breath sounds, no respiratory distress, no accessory muscle use Cardiovascular: regular rate, rhythm, no edema, no gallop, no JVD, no murmur Abdomen: normal bowel sounds, non tender, soft, no organomegaly, no pulsatile mass, + pertinent finding (Abdomen is soft, non tender to deep palpation. ) Extremities: normal range of motion, non-tender, normal inspection, no pedal edema, + pertinent finding (dressing on left lower leg intact. Pt has a goode draining concentrated yellow urine and a rectal tube draining dark green liquid material. ) Neurologic/Psychiatric: alert, + pertinent finding ( Pt is more oriented today , answering questions appropriately, some babbling of nonsensical sounds. ) Extremities: + pertinent finding (Left lower extremity: markedly improve erythema, 4cm inside the border margins from admission. ) (Aníbal Hurtado M.D.) Hospital Course 66M presented on 04/26/17 with fever and hypotension - diagnosed with sepsis secondary to cellulitis of the left lower extremity. Blood cultures were positive for Group B Strep. Pt was admitted to the ICU due to the need to be on pressors - he was hypotensive and tachycardic. On admission however he was alert, awake and oriented to person place and time and pt was having conversations with staff. He was empirically started on Vancomycin and Zosyn. On admission he was also tested for C. Diff due to loose stools (result negative ). He was eventually downgraded to Rocephin while in the ICU. On Day #4 of hospitalization pt started having copious amounts of vomiting. Abdominal X-ray revealed a bowel obstruction. NG tube was placed and over 2L of fluids was removed from the stomach. Pt was made NPO and eventually progressed to a clear liquid diet. Pt was downgraded from the ICU on 05/02/17. On 05/04/17 in the AM the patient was observed to be more disoriented - he was known to have an element of sundowning - however the patient was observed to have confabulation throughout the day which at the time was a new finding. Around this time he was also found to have increasing multiple loose bowel movements. C. Diff was repeated and negative. A rectal tube was placed on 05/04/17. Throughout this time period the left lower extremity appeared to be improving clinically - erythematous margins were decreasing from an outlined border placed on 04/27/17. Antibiotic coverage was expanded to Daptomycin and Zosyn. On 05/06/17 the patient's mentioned that the pt had two drinks per day - at this time we began treating with long acting benzodiazepines - Diazepam 5mg IV BID. He had clinical improvement to our long acting benzos and was able to respond to questions. CT Head, CSF studies (WBC =1, RBC =500, Protein 85 - high - we deemed the elevated protein reactive to inflammation), and repeat blood cultures were all found to be negative. The patient also continues to have what appears to be a small bowel obstruction on imaging. Paradoxically the patient continued to have liquid drainage via his rectal tube. Pt is being transferred to [facility] for Encephalopathy 2/ to Sepsis of unknown origin / cellulitis vs Alcoholic Encephalopathy. The time frame for DT does not fit the clinical picture - pt started experiencing symptoms around one week after admission and did experience improvement in mental status after started Diazepam BID. Brief comments on his other medical conditions: Loose Stools - The loose stools may be from opiate withdrawal. C. Diff was tested 3 times and each time was negative. The pt was also started on a course of Flagyl empirically. Hypernatremia - During hospital stay pt's sodium increased from 138 to 150 as he became dehydrated. From the past three days he has been on a solution of D5+ quarter NSS+20meq at 175mls/hr. We have also been giving IV Thiamine and IV folate once his alcohol history became known to us. Anemia - Pt hemoglobin dipped from 9.4-->8.1-->8.4, pt has heme positive stool, stool has visually changed from black to dark green looking in recent days. Pt is on a PPI drip. Our GI and surgical team did not want any interventions. JERRY: Urine output in past 24 hours was 1900mls of urine. Creatinine today was 1.8<--1.7 (1.4 on admission, peaked at 3.2 during hospital stay) Lower Extremity Pain 2/2 Radiculopathy - Pt is on Lyrica 200mg TID at home and Percocet (10mg / 325mg) TID. Hypothyroid - Giving home dose of Synthroid GUS- Pt uses own CPAP from home. Renal Mass - Incidental finding on CT Scan. Total Time Spent: Greater than 30 minutes This includes examination of the patient, discharge planning, medication reconciliation, and communication with other providers. (Aníbal Hurtado M.D.) Resident Physician Supervision Note: I was present with Dr. Hurtado in bedside. I verified the le history and physical, reviewed labs and image studies, discussed the case with the resident and agree with the findings and care plan. See progress note from today for detail Total Time Spent: Greater than 30 minutes (40) (Snow Jose M.D.) Discharge Instructions Please refer to the electronic Patient Visit Report (Discharge Instructions) for additional information. (Aníbal Hurtado M.D.) Resident Involvement: Resident Care Provided Care Provided: Adult [facility] (Aníbal Hurtado M.D.)
[2017-05-07] MEDS: MONTELUKAST SOD 10 MG TAB PO SCH (20:44)
[2017-05-07] MEDS: ASPIRIN 81 MG ECTAB PO SCH (20:44)
[2017-05-07] MEDS: OLANZAPINE ZYDIS 5 MG ORALLY DIS. TAB PO SCH (20:44)
[2017-05-07] MEDS ORDERED: SODIUM CHLORIDE 0.9% 1000ML 1,000 ML IV SCH (23:00)
[2017-05-08] MEDS ORDERED: DAPTOmycin IV 800 MG in SODIUM CHLORIDE 0.9% 50ML 50 ML IV SCH (06:00)
[2017-05-08] MEDS ORDERED: FoLIC ACID INJ 1 MG in SYRINGE 9.8 ML IV SCH (09:00)
== END 2017-05-07 22:59 | disposition short-term general hospital (02) | DRG 871 ==
LOC: C.EDB 13:58 → C.MSICU 20:43 → ENRESERV 21:31 → C.2E 05-02 21:32
PROVIDERS: ADMIT Internal Medicine; ATTEND Family Medicine
PROC: 0HDLXZZ Extraction of Left Lower Leg Skin, External Approach (ICD-10-PCS; principal; 2017-05-04)
PROC: 009U3ZX Drainage of Spinal Canal, Percutaneous Approach, Diagnostic (ICD-10-PCS; 2017-05-06)
DX: A40.1 Sepsis due to streptococcus, group B (principal); R65.21 Severe sepsis with septic shock; G93.41 Metabolic encephalopathy; N17.9 Acute kidney failure, unspecified; Z68.41 Body mass index [BMI] 40.0-44.9, adult; L03.116 Cellulitis of left lower limb; N12 Tubulo-interstitial nephritis, not specified as acute or chronic; F10.231 Alcohol dependence with withdrawal delirium; E87.0 Hyperosmolality and hypernatremia; K92.2 Gastrointestinal hemorrhage, unspecified; D80.3 Selective deficiency of immunoglobulin G [IgG] subclasses; F05 Delirium due to known physiological condition; K56.69 Other intestinal obstruction; E66.01 Morbid (severe) obesity due to excess calories; E78.5 Hyperlipidemia, unspecified; J45.909 Unspecified asthma, uncomplicated; G62.9 Polyneuropathy, unspecified; B95.1 Streptococcus, group B, as the cause of diseases classified elsewhere; R19.7 Diarrhea, unspecified; D64.9 Anemia, unspecified; R19.5 Other fecal abnormalities; G47.33 Obstructive sleep apnea (adult) (pediatric); Z99.89 Dependence on other enabling machines and devices; E03.9 Hypothyroidism, unspecified; M54.16 Radiculopathy, lumbar region; N28.89 Other specified disorders of kidney and ureter; T40.605A Adverse effect of unspecified narcotics, initial encounter; Y92.230 Patient room in hospital as the place of occurrence of the external cause; K21.9 Gastro-esophageal reflux disease without esophagitis; T50.8X5A Adverse effect of diagnostic agents, initial encounter; T39.315A Adverse effect of propionic acid derivatives, initial encounter; T46.6X5A Adverse effect of antihyperlipidemic and antiarteriosclerotic drugs, initial encounter; E87.6 Hypokalemia; E86.0 Dehydration; N18.3 Chronic kidney disease, stage 3 (moderate); Z86.61 Personal history of infections of the central nervous system; Z87.01 Personal history of pneumonia (recurrent); E27.9 Disorder of adrenal gland, unspecified; N20.0 Calculus of kidney; Z86.19 Personal history of other infectious and parasitic diseases; M48.00 Spinal stenosis, site unspecified; K75.81 Nonalcoholic steatohepatitis (NASH); I12.9 Hypertensive chronic kidney disease with stage 1 through stage 4 chronic kidney disease, or unspecified chronic kidney disease; R60.0 Localized edema; I25.10 Atherosclerotic heart disease of native coronary artery without angina pectoris; M21.372 Foot drop, left foot; K58.9 Irritable bowel syndrome, unspecified; Z79.82 Long term (current) use of aspirin; Z79.891 Long term (current) use of opiate analgesic; Z87.891 Personal history of nicotine dependence; Z79.899 Other long term (current) drug therapy; Z79.1 Long term (current) use of non-steroidal anti-inflammatories (NSAID)

== ENCOUNTER → 2017-06-11 | Outpatient (CLI) | payer OTHER, BC ==
[~2017-06-11] MED LIST changes: -BENZ-57 PO; -CETI10TA84 PO; -FLUT0.15 NAE; -LVQ750 PO; +NAPR1TAB9 PO; -OXGN; -SYMIN/8045 INH; +VGR50 PO
== END | disposition home or self-care (01) ==
LOC: C.PATHSPEC 17:18
PROVIDERS: ATTEND Plastic Surgery
DX: L72.11 Pilar cyst (principal)

== ENCOUNTER → 2017-09-08 | Outpatient (CLI) | payer OTHER, BC ==
--- NOTE | 2017-09-09 06:19 | SPLIT NIGHT TECHNICIAN REPORT ---
[facility] Split Night Polysomnogram - Oil Refiner Report Study date: 09/08/2017 Referring Physician: Dr. Conrad Willingham Name: AMANDA WILLARD Oil Refiner: URI Roberts. Date of : 1950 Height: 66 years, Height 5' 8" Sex: Male Weight: 260 lbs Age: 66 Neck Circum: 20.25inches BMI: Medications: 39.53 Duloxetine HCl 30mg, Lansoprazole 30mg, Sodium Bicarbonate 650mg, Colchicine 0.6mg, Colcrys 0.6mg, Metoprolol 25mg, Levothyroxine 25mcg, Viagra 50mg, Lyrica 100mg, Oxycodone-Acetaminophen 10-325mg, Vit D, Vit B Complex Patient History Study started on room air with no ETCO2 monitoring in room 36. 66 yr old male here tonight for a possible split psg. He was diagnosed with GUS over 10 years ago. He is not compliant. He needs a new machine. He usually falls asleep with the tv on at 2am and wakes at 8am. His ESS=8/24. Neck circ=20.25inches Parameters Monitored NPSG: E1-M2, E2-M1, Fp1-M2, Fp2-M1, F3-M2, F4-M2, F4-M1, C3-M2, C4-M2, C4-M1, O1-M2, O2-M2, O2-M1, T3-M2, T4-M1, P3-M2, P4-M1, CHIN1, CHIN2, HR, EKG, Legs, PFLOW, SNOR, FLOW, CFLOW, Tidal Volume, THOR, ABDO, SpO2, PLTH, CPRESS, ETCO2 Wave, ETCO2, pH SLEEP SUMMARY DATA DIAGNOSTIC TREATMENT Lights Out: 11:02:10 PM 1:48:10 AM Lights On: 1:34:10 AM 5:28:10 AM Total Recording Time (TRT): 152.0 min. 220.0 min. Total Sleep Time (TST): 88.5 min. 114.5 min. NREM Time: 88.5 min. 114.5 min. REM Time: 0.0 min. 0.0 min. Sleep Period Time (SPT): 136.0 min. 175.5 min. Sleep Efficiency (SE): 58 % 52 % Sleep Latency: 16.0 min. 20.5 min. Arousal Index: 85.4 28.3 PAP Treatment Levels: 4, 5, 6, 7, 8, 9 * Optimal Pressure(s) SLEEP STAGING DATA DIAGNOSTIC TREATMENT Duration (min) TST % Duration (min) TST % Stage Wake: 63.5 min. -- 105.5 min. -- WASO: 47.5 min. -- 61.0 min. -- NREM: 88.5 min. 100 % 114.5 min. 100 % Stage N1: 6.0 min. 7 % 12.0 min. 10 % Stage N2: 82.5 min. 93 % 89.5 min. 78 % Stage N3: 0.0 min. 0 % 13.0 min. 11 % REM: 0.0 min. 0 % 0.0 min. 0 % POSITIONAL DATA Event Count Index Event Count Index Supine: 19 48 43 23.6 Supine NREM: 19 48.2 43 23.6 Supine REM: N/A N/A N/A N/A Non-Supine: 33 30.5 9 108.0 Non-Supine NREM: 33 30.5 9 108.0 Non-Supine REM: N/A N/A N/A N/A AROUSAL SUMMARY DATA: Event Count Index Event Count Index Apnea Arousals: 4 8.1 12 10.5 Hypopnea Arousals: 26 17.6 13 6.8 Snore Arousals: 0 0.0 2 1.0 PLM Arousals: 70 47.5 11 5.8 Non-Specific Arousals: 29 19.7 12 6.3 Total Arousals: 126 85.4 54 28.3 MYOCLONUS (PLM) Event Count Index Event Count Index PLM: 252 170.8 92 48.2 PLM AROUSAL: 70 47.5 11 5.8 PLM W/O AROUSAL 252 170.8 81 42.4 PLM W/RESP EVENT 28 0.0 21 0.0 MYOCLONUS (PLM) Event Count Index Event Count Index LM: 0 8.8 30 15.7 LM AROUSAL: 0 0.0 5 2.6 LM W/O AROUSAL LM W/RESP EVENT LM NON SPECIFIC 156 105.8 73 38.3 HEART RATE DATA DIAGNOSTIC TREATMENT Sleep (bpm): 67 61 REM (bpm): N/A N/A NREM (bpm): 93 91 Tachycardia Count: 0 0 Tachycardia Duration: 0.00 0 Bradycardia Count: 0 0 Bradycardia Duration: 0.00 0 DIAGNOSTIC PORTION TREATMENT PORTION RESPIRATORY DATA Event Count Index Event Count Index AHI: -- 35.3 -- 27.2 RDI: -- 35.3 -- 27 Obstructive Apnea: 9 6.1 19 10.0 Central Apnea: 3 2.0 0 0.0 Mixed Apnea: 0 0.0 1 0.5 Hypopnea: 40 27.1 32 16.8 RERA: 0 0.0 0 0.0 Total Apneas: 12 8.1 20 10.5 RESPIRATORY DATA REM NREM SLEEP REM NREM SLEEP Supine Position: Obstructive Apneas: N/A 3 3 N/A 18 18 Central Apneas: N/A 0 0 N/A 0 0 Mixed Apneas: N/A 0 0 N/A 1 1 Hypopneas: N/A 16 16 N/A 24 24 RERA N/A 0 0 N/A 0 0 Total Supine Events: N/A 19 19 N/A 43 43 Supine AHI: N/A 48.2 48 N/A 23.6 23.6 Supine RDI: N/A 48.2 48.2 N/A 23.6 23.6 REM NREM SLEEP REM NREM SLEEP Non-Supine Position: Obstructive Apneas: N/A 6 6 N/A 1 1 Central Apneas: N/A 3 3 N/A 0 0 Mixed Apneas: N/A 0 0 N/A 0 0 Hypopneas: N/A 24 24 N/A 8 8 RERA N/A 0 0 N/A 0 0 Total Supine Events: N/A 33 33 N/A 9 9 Supine AHI: N/A 30.5 30.5 N/A 108.0 108.0 Supine RDI: N/A 30.5 30.5 N/A 108.0 108.0 OXYGEN DESTAURATION DATA: Event Count Index Event Count Index REM Desaturations: N/A N/A N/A N/A NREM Desaturations: 66 44.7 50 26.2 SNORE DATA DIAGNOSTIC TREATMENT Snore Time: 3.9 2:08:40 AM Snore TST%: 4 6 Snore Arousal Count: 0 2 Snore Arousal Index: 0.0 1.0 Desaturation Event Summary: Minimum %SpO2 Event Count Mean/Min/Max Duration(sec.) Desaturation Index % Time In Bed > 90 189 17.2 / 6.8 / 60.0 41.1 79.2 86 - 90 17 12.4 / 6.8 / 33.8 14.2 20.6 81 - 85 0 N/A 0.0 0.3 76 - 80 0 N/A 0.0 0.0 71 - 75 0 N/A 0.0 0.0 66 - 70 0 N/A 0.0 0.0 61 - 65 0 N/A 0.0 0.0 56 - 60 0 N/A 0.0 0.0 51 - 55 0 N/A 0.0 0.0 < 50 0 N/A 0.0 0.0 OXYGEN SATURATION DATA DIAGNOSTIC TREATMENT SpO2 Mean Sleep: 93 % 91 % SpO2 Mean REM: N/A % N/A % SpO2 Mean NREM: 93 % 91 % SpO2 Minimum Sleep: 83 % 84 % SpO2 Minimum REM: N/A % N/A % SpO2 Minimum NREM: 83 % 84 % Time Below 90% (TST): 3.7 22.1 Time Below 88% (TST): 1.2 1.7 Total REM NREM Awake <50% 0.0 min. 0.0 min. 0.0 min. 0.0 min. 51 - 60% 0.0 min. 0.0 min. 0.0 min. 0.0 min. 61 - 70% 0.0 min. 0.0 min. 0.0 min. 0.0 min. 71 - 80% 0.0 min. 0.0 min. 0.0 min. 0.0 min. 81 - 90% 72.6 min. 0.0 min. 56.8 min. 15.9 min. 91 - 100% 275.7 min. 0.0 min. 144.8 min. 131.0 min. Average 92 0 92 93 Minimum SpO2 83 N/A 83 85 Desaturation Event Index 30.5 0.0 34.3 26.6 # Desat. Events below 89% 58 N/A 38 20 Time(%) with Saturation below 89% 3.0 0.0 2.0 1.0 Time(min.) with Saturation below 89% 10.5 0.0 6.8 3.7 Recording Oil Refiner Comments: Mr. Willard slept in the right, left and supine positions. Cardiac arrhythmia and PLM's were noted, please see print out. He had so many body movements that this study was difficult to score. No bruxism noted. Snoring was noted and scored as a 1 on a scale of 1 through 5. (0=no snoring, 5=snoring loud enough to be heard through a closed door or down the [address] way) At about 1:48 am he had met specific Split-Night criteria during the diagnostic portion of this study. CPAP was initiated at +4 CMH2O and up-titrated to a level of + 9CMH2O. A medium Simplus full face mask by [employer] was used during titration. He awoke once to use the restroom during the night. He stated that he slept about the same as when at home. The final report will be interpreted and signed by a sleep physician. The completed physician report will then be placed in the patient medical record. Therapy Event: Therapy (cm H20) 0 4 5 6 7 8 9 Total Time at Pressure (min.) 152.0 23.4 9.3 26.3 10.4 89.6 61.1 TST at Pressure (min.) 88.5 2.9 7.3 8.3 8.4 53.1 34.6 # Periods 1 1 1 1 1 1 1 Sleep Onset (min.) 16.0 20.5 0.0 0.0 0.0 0.0 0.0 REM Onset (min.) N/A N/A N/A N/A N/A N/A N/A Sleep Efficiency % 58 12 78 31 80 59 56 Wakefulness (%) 41.8 87.8 21.5 68.5 19.3 40.7 43.4 Wakefulness (min.) 63.5 20.5 2.0 18.0 2.0 36.5 26.5 NREM 1 (%) 3.9 4.3 26.9 1.9 14.5 3.9 4.9 NREM 1 (min.) 6.0 1.0 2.5 0.5 1.5 3.5 3.0 NREM 2 (%) 54.3 8.0 51.6 29.6 66.2 40.8 51.7 NREM 2 (min.) 82.5 1.9 4.8 7.8 6.9 36.6 31.6 NREM 3 (%) 0.0 0.0 0.0 0.0 0.0 14.5 0.0 NREM 3 (min.) 0.0 0.0 0.0 0.0 0.0 13.0 0.0 REM (%) 0.0 0.0 0.0 0.0 0.0 0.0 0.0 REM (min.) 0.0 0.0 0.0 0.0 0.0 0.0 0.0 # Arousals 126 4 11 9 9 14 7 Arousal Index 85.4 83.9 90.6 65.2 64.6 15.8 12.1 # Snore 113 0 7 17 16 57 61 Snore Index 76.6 0.0 57.6 123.2 114.8 64.4 105.7 AHI 35.3 125.8 107.0 108.7 57.4 4.5 10.4 AHI Supine 48.2 125.8 107.0 107.5 57.9 4.5 10.4 AHI Non-Supine 30.5 N/A N/A 109.6 0.0 N/A N/A NREM AHI 35.3 125.8 107.0 108.7 57.4 4.5 10.4 REM AHI N/A N/A N/A N/A N/A N/A N/A RDI 35.3 125.8 107.0 108.7 57.4 4.5 10.4 # Obstructive 9 4 10 2 0 0 3 # Central Ap 3 0 0 0 0 0 0 # Mixed 0 0 0 0 0 1 0 # Hypopneas 40 2 3 13 8 3 3 RERAS 0 0 0 0 0 0 0 Total Respiratory Events 52 6 13 15 8 4 6 Time Below SpO2 89.00% (min.) 1.9 0.1 0.7 0.7 2.3 1.0 0.1 Mean NREM SpO2 (%) 93 93 93 91 90 90 92 Mean REM SpO2 (%) N/A N/A N/A N/A N/A N/A N/A Mean Sleep SpO2 (%) 93 93 93 91 90 90 92 Min NREM SpO2 (%) 83 88 84 86 86 87 88 Min REM SpO2 (%) N/A N/A N/A N/A N/A N/A N/A Position Supine (min.) 23.7 2.9 7.3 3.4 8.3 53.1 34.6 Position Non-supine (min.) 64.8 0.0 0.0 4.9 0.1 0.0 0.0 LM Index Sleep 179.7 188.7 197.6 79.7 93.3 62.2 17.3 LM Index NREM 179.7 188.7 197.6 79.7 93.3 62.2 17.3 LM Index REM N/A N/A N/A N/A N/A N/A N/A Mean Heart Rate (bpm) 67 63 63 63 62 60 61 Min Heart Rate (bpm) 63 61 61 59 59 58 59
--- NOTE | 2017-09-14 07:55 | Sleep Study ---
Sleep Study Report Date of Service: 09/08/2017 Sleep Study Report Clinical data: The patient is a 66-year-old male referred by Dr. Carlo Willingham. He has a history of obstructive sleep apnea. He has been noncompliant with his CPAP. He is referred for a possible split study. His Lamar Sleepiness Scale score is 8. The patient has a BMI of 39.53. This was an in-lab split sleep study. Sleep architecture: During the diagnostic portion of the study patient had a total sleep period of 136 minutes. There was a total sleep time of 88.5 minutes. The sleep efficiency was moderately reduced to 58 percent. Sleep latency was 16 minutes. Sleep consisted of stage N1 7 percent, stage N2 93 percent, stage N3 0 percent , stage REM 0 percent. During the therapeutic portion of the study the patient's respiratory events were treated with nasal CPAP. He had a total sleep period of 175.5 minutes. There was a total sleep time of 114.5 minutes. The sleep efficiency was 52 percent. The sleep latency was 20.5 minutes. Sleep consisted of stage N1 10 percent, stage N2 78 percent, stage N3 11 percent, stage REM 0 percent. Arousal data: During the diagnostic portion of the study the patient had 126 arousals including for apnea arousals, 26 hypopnea arousals, 70 PLM arousals, and 29 nonspecific arousals. The arousal index was severely elevated at 85.4. During the therapeutic portion of the study the patient had a total of 54 arousals including 12 apnea arousals, 13 hypopnea arousals, 2 snoring arousals, 11 PLM arousals, and 12 nonspecific arousals. The arousal index was 28.3. PLM data: During the diagnostic portion of the study the patient had 252 periodic limb movements for a PLM index severely elevated at 170.8. There were 70 arousals associated with limb movements for a PLM arousal index of 47.5. During the therapeutic portion of the study the patient had 92 periodic limb movements with a PLM index of 48.2. There were 11 arousals associated with limb movements for a PLM arousal index of 5.8. EKG: The underlying cardiac rhythm was normal sinus. The patient at times had frequent extrasystoles. These were likely supraventricular premature contractions with aberrant conduction with an inability to exclude PVCs. The cardiac rates 61-93 beats per minute. Respiratory data: During the diagnostic portion of the study the patient had a total of 52 respiratory events including 9 obstructive apneas, 3 central apneas, and 40 hypopneas. Hypopneas were scored according to the 4 percent desaturation rule. The apnea-hypopnea index was elevated at 35.3. This would reflect moderate sleep apnea. During the therapeutic portion of the study the patient's respiratory events were treated with nasal CPAP. He had a total of 52 respiratory events including 19 obstructive apneas, 1 mixed apnea, and 32 hypopneas. The apnea- hypopnea index was elevated at 27.2 events per hour. At the final pressure of 9 centimeters the apnea-hypopnea index was 10.4 events per hour. Oximetry data: During the diagnostic portion of the study the mean saturation was 93 percent. The minimum saturation was 83 percent. There were 1.2 minutes with saturations less than 88 percent. During the therapeutic portion of the study the mean saturation was 91 percent. The minimum saturation was 84 percent. There was 1.7 minutes with saturations less than 88 percent. Wing Coverer comments: The patient slept on the right, left, and supine positions. Cardiac arrhythmia and PLMS were noted. He had so many body movements that this study was difficult to score. No bruxism noted. Snoring was noted and scored as a 1 on a scale of 1 through 5. At about 1:48 a.m. he had met specific split night criteria during the diagnostic portion of the study. CPAP was initiated at 4 centimeters and was up titrated to a level of 9 centimeters. A medium Simplus full face mask by [employer] was used during the titration. He awakened once to use the restroom during the night. He stated that he slept about the same as when at home. Impressions: 1. Obstructive sleep apnea-moderately severe 2. Periodic limb movement disorder 3. Cardiac arrhythmia Comments: The patient had a very restless night sleep. There was no REM sleep at any time. He had moderately severe sleep apnea as noted. His sleep efficiency was low both during the diagnostic and therapeutic portions of the study. The arousal index improved significantly with CPAP. He had severe frequency of limb movements which also improved with CPAP therapy. His most consolidated sleep occurred between 4 a.m. and 5 a.m.. The patient did give a history that he usually goes to bed at 2 a.m. and awakens at 8 a.m.. He usually falls asleep with TV on. Recommendations: 1. It is advised that the patient be treated with nasal CPAP at 11 centimeters. This study was taken up to 9 centimeters but he had residual sleep apnea and thus would advise setting the pressure at 11 centimeters. 2. The patient had severely restless sleep with very frequent periodic limb movements. Consideration could be given to treatment for the underlying limb movement disorder in order to assist with sleep consolidation. A medication such as pramipexole might be considered. 3. If possible the patient should avoid sleeping in the supine position. 4. It is advised that a serum ferritin level be checked in light of the limb movement disorder. Treatment with iron supplementation would be advised if serum ferritin is less than 50. 5. Compliance data should be obtained after 1-2 months at the adjusted CPAP pressure. Copies To 1: Adolfo Guzman DO; Carlo Willingham M.D.
== END | disposition home or self-care (01) ==
LOC: C.NEUR 20:00
PROVIDERS: ATTEND Internal Medicine
DX: G47.33 Obstructive sleep apnea (adult) (pediatric) (principal); I10 Essential (primary) hypertension; G89.4 Chronic pain syndrome; Z68.41 Body mass index [BMI] 40.0-44.9, adult; K76.0 Fatty (change of) liver, not elsewhere classified; J98.4 Other disorders of lung; E55.9 Vitamin D deficiency, unspecified

== ENCOUNTER → 2017-12-03 | Outpatient (CLI) | payer OTHER, BC ==
--- NOTE | 2017-12-03 10:09 | DIAGNOSTIC IMAGING REPORT ---
R HAND MIN 3 VIEWS ROUTINE CLINICAL HISTORY: M25.541 Arthralgia of right handright 2nd MCP. no obvious injur pain COMPARISON: 09/06/2015 DISCUSSION: Considerable degenerative change throughout the intercarpal and to a lesser extent carpometacarpal joints. Is also significant degenerative change of the radiocarpal and radial ulnar articulation. No well-defined acute bony abnormality. No significant post traumatic findings. Mild soft tissue edema. IMPRESSION: Considerable degenerative change. Mild soft tissue edema. No acute bony abnormality. The above report was generated using voice recognition software. It may contain grammatical, syntax or spelling errors. Electronically signed by: Aníbal Mancini M.D. 12/03/2017 10:08 AM Dictated Date/Time: 12/03/2017 10:07 AM
[2017-12-03 13:24] LABS: BASO % 0.5 %; BASO ABS # 0.05 K/uL (0-0.2); EOS % 2.8 %; EOS ABS # 0.28 K/uL (0-0.5); HEMATOCRIT 39.1 % (42-52); HEMOGLOBIN 12.5 g/dL (14.0-18.0); IG# 0.07 K/uL (0.00-0.02); LYMPH % 26.2 %; LYMPH ABS # 2.59 K/uL (1.2-3.4); MEAN CORPUSCULAR HEMOGLOBIN 27.2 pg (25-34); MEAN PLATELET VOLUME 10.9 fL (7.4-10.4); MONO % 9.3 %; MONO ABS # 0.92 K/uL (0.11-0.59); NEUT % 60.5 %; NEUT ABS # 5.98 K/uL (1.4-6.5); PLATELET COUNT 224 K/uL (130-400); RED CELL DISTRIBUTION WIDTH CV 15.6 % (11.5-14.5); RED CELL DISTRIBUTION WIDTH SD 48.1 fL (36.4-46.3); WHITE BLOOD COUNT 9.89 K/uL (4.8-10.8)
[2017-12-03 13:58] LABS: ALBUMIN 3.2 gm/dl (3.4-5.0); ALKALINE PHOSPHATASE 80 U/L (45-117); ALT/SGPT 21 U/L (12-78); AST/SGOT 14 U/L (15-37); BLOOD UREA NITROGEN 25 mg/dl (7-18); CALCIUM 9.2 mg/dl (8.5-10.1); CARBON DIOXIDE 25 mmol/L (21-32); CHOLESTEROL 171 mg/dl (0-200); CREATININE 1.22 mg/dl (0.60-1.40); GLUCOSE 91 mg/dl (70-99); POTASSIUM 4.4 mmol/L (3.5-5.1); SODIUM 139 mmol/L (136-145); URIC ACID 8.6 mg/dl (2.6-7.2)
[2017-12-03 13:59] LABS: HEMOGLOBIN A1C 5.3 % (4.5-5.6)
[2017-12-03 14:09] LABS: LDL CHOLESTEROL CALCULATED 86 mg/dl; TOTAL PROTEIN 7.8 gm/dl (6.4-8.2)
== END | disposition home or self-care (01) ==
LOC: C.RADBC 09:36
PROVIDERS: ATTEND Physician Assistant Medical
DX: M25.541 Pain in joints of right hand (principal); M19.041 Primary osteoarthritis, right hand; I10 Essential (primary) hypertension; E03.9 Hypothyroidism, unspecified; M10.9 Gout, unspecified; D64.9 Anemia, unspecified; G62.9 Polyneuropathy, unspecified; G47.33 Obstructive sleep apnea (adult) (pediatric); F11.20 Opioid dependence, uncomplicated; E55.9 Vitamin D deficiency, unspecified; G47.61 Periodic limb movement disorder; R53.81 Other malaise

== ENCOUNTER → 2018-05-10 | Outpatient (CLI) | payer OTHER, BC ==
[~2018-05-10] MED LIST changes: +LISI-726 PO; -LSN20 PO; -OXYC-106 PO; +OXYC-594 PO
[2018-05-10 12:52] LABS: BASO % 0.7 %; BASO ABS # 0.07 K/uL (0-0.2); EOS % 2.7 %; EOS ABS # 0.27 K/uL (0-0.5); HEMATOCRIT 43.1 % (42-52); IG# 0.07 K/uL (0.00-0.02); LYMPH % 27.6 %; LYMPH ABS # 2.75 K/uL (1.2-3.4); MEAN CELL VOLUME 85.7 fL (80-100); MEAN CORPUSCULAR HEMOGLOBIN 27.8 pg (25-34); MEAN CORPUSCULAR HGB CONC 32.5 g/dl (32-36); MEAN PLATELET VOLUME 11.2 fL (7.4-10.4); MONO % 10.9 %; MONO ABS # 1.09 K/uL (0.11-0.59); NEUT % 57.4 %; NEUT ABS # 5.71 K/uL (1.4-6.5); PLATELET COUNT 215 K/uL (130-400); RED CELL DISTRIBUTION WIDTH CV 15.6 % (11.5-14.5); RED CELL DISTRIBUTION WIDTH SD 48.7 fL (36.4-46.3); WHITE BLOOD COUNT 9.96 K/uL (4.8-10.8)
[2018-05-10 13:34] LABS: BLOOD UREA NITROGEN 29 mg/dl (7-18); CARBON DIOXIDE 25 mmol/L (21-32); CREATININE 1.26 mg/dl (0.60-1.40); GLUCOSE 107 mg/dl (70-99); POTASSIUM 4.1 mmol/L (3.5-5.1); SODIUM 139 mmol/L (136-145); URIC ACID 6.9 mg/dl (2.6-7.2)
== END | disposition home or self-care (01) ==
LOC: C.LABBC 11:50
PROVIDERS: ATTEND Internal Medicine
DX: G47.33 Obstructive sleep apnea (adult) (pediatric) (principal); I10 Essential (primary) hypertension; M10.9 Gout, unspecified; D64.9 Anemia, unspecified; G47.61 Periodic limb movement disorder; G89.4 Chronic pain syndrome

== ENCOUNTER 2020-09-21 18:29 | Inpatient (IN) ==
[2020-09-21] MEDS ORDERED: SODIUM CHLORIDE 0.9% 1000ML 500 ML IV ONE (20:37)
[2020-09-21] MEDS ORDERED: DEXAMETHASONE SOD INJ 10 MG/ML VIAL IV ONE (20:37)
--- NOTE | 2020-09-21 21:10 | XRay Report ---
XR chest 1V portable HISTORY: 69 years-old Male sob, COVID acute shortness of breath with chest pain. COVID Positive. COMPARISON: Chest and rib radiographs 03/20/2020 TECHNIQUE: Portable AP view of the chest FINDINGS: Cardiac silhouette is enlarged, unchanged. Pulmonary vascular congestion. Reticular opacities are not ed with patchy multifocal multilobar distribution of alveolar densities. Mild blunting of the costoph renic angles. No large pleural effusion or pneumothorax. Bones of the chest appear grossly intact. IMPRESSION: Extensive bilateral alveolar opacities suggest multifocal pneumonia. ACT 112: Negative or not required by law. The above report was generated using voice recognition software. It may contain grammatical, syntax o r spelling errors. Electronically signed by: Casimiro Marcano M.D. 09/21/2020 9:09 PM
[2020-09-21] MEDS ORDERED: OPTIRAY 320 125ml IV ONE (21:13)
[2020-09-21 21:18] LABS: INR 1.2 (0.9-1.1); Prothrombin Time 12.6 Seconds (9.0-12.0)
[2020-09-21 21:29] LABS: Albumin Globulin Ratio 0.6 (0.9-2); BUN Creatinine Ratio 17.3 (10-20); Bilirubin,Total 0.8 mg/dl (0.2-1); C Reactive Protein 11.6 mg/dl (0-0.29); Calcium 8.5 mg/dl (8.5-10.1); Est GFR (African American) 59.2; Est GFR (Non-African American) 51.1; Globulin 4.8 gm/dl (2.5-4.0); Total Protein 7.8 gm/dl (6.4-8.2); Troponin I 0.043 ng/ml (0-0.045)
--- NOTE | 2020-09-21 21:31 | Emergency Department Note ---
Impression & Plan Pneumonia due to COVID-19 virus, Acute respiratory failure with hypoxia, Hyponatremia ED Provider Note Provider: Richardson Davey MD DATE OF SERVICE:09/21/2020 CHIEF COMPLAINT: Shortness of breath HISTORY OF PRESENT ILLNESS: Patient is a 69-year-old gentleman history of BPH, anemia, hypertension, hypothyroidism presenting today complaining of cough fevers and shortness of breath. Patient states he was tested last week has been ill for approximately 10 days. Patient states he has had intermittent fevers and taking acetaminophen for this. Patient denies significant chest pain but states he has been short of breath particular with exertion. Denies significant leg swelling or tenderness. Denies significant abdominal symptoms of pain nausea or vomiting. Patient states he does have a slightly productive cough. Patient states lives with his who is also sick. Denies any syncope or presyncope. Denies any other associated trauma. Patient states he test his pulse ox at home and it was low and thus came here for further evaluation. Patient was only able to walk part way back from triage to his room and there was assisted to a wheelchair due to his breathing status. REVIEW OF SYSTEMS: A total of 10 review of systems was obtained and negative except as stated above in the HPI. PAST MEDICAL HISTORY: As noted above MEDICATIONS: Reviewed home medication list SOCIAL HISTORY: Lives at home with , distant former smoker, retired PHYSICAL EXAM: GENERAL: alert and oriented sitting on the stretcher just being assisted there from the wheelchair Head: normocephalic and atraumatic EYES: No injection, discharge or icterus. NECK: Trachea midline. Supple. ENT: Mucous membranes pink and moist. LUNGS: Airway patent. Tachypnea with mild increased work of breathing HEART: Tachycardic rate and rhythm. No chest wall tenderness ABDOMEN: Soft and non-tender, without guarding or rebound. SKIN: Warm dry. Initially there is some slight peripheral cyanosis of the ears and extremities the quickly improves after rest and oxygen application. EXTREMITIES: Without tenderness with some slight bilateral pedal edema. NEUROLOGICAL: No focal deficits. No aphasia. No facial droop or slurred speech. EKG: Sinus tachycardia with rate of 131 with PACs noted without acute ST segment elevation although there is some baseline artifact. CONTINUOUS CARDIAC MONITORING: was ordered and showed a heart rate of 105 bpm in sinus tachycardia there is no PVC/PAC Patient's laboratory studies and imaging reviewed. Differential includes Viral syndrome, otitis, pharyngitis, pneumonia, influenza, meningitis, urinary tract infection, sepsis, bacteremia, as well as other pathologies. IMPRESSION/MEDICAL DECISION MAKING: Patient is Covid positive now approximately 10 days into symptoms with worsening shortness of breath and persistent fevers. Patient became quite short of breath walking back to triage it was noted upon arriving to the room from wheelchair to be 66% on room air. Patient was placed on a nonrebreather for this. Patient denies significant chest pain appears to be in a sinus tachycardia. Chest x-ray shows diffuse interstitial pulmonary changes consistent with possible pneumonia versus viral Covid pneumonia. Maintain on airborne isolation. In the room raz rayo was afebrile at 37.3 Celsius and thus deferred additional antipyretics at the initial time. Patient noted to have some hyponatremia of 128 elevated CRP and a slightly elevated lactate of 2.5. Hyponatremia likely secondary to his acute illness. Given some mild fluid hydration. Troponin detectable not abnormal at this time likely demand in the setting of his illness. No evidence of acute hepatitis or pancreatitis. Denies any abdominal symptoms. CT with some artifact limiting study but per radiology no clear evidence of PE. Evidence of multifocal pneumonia findings and trace pleural effusions with likely reactive mediastinal hilar adenopathy. No significant leukocytosis and with the Covid positive history this is likely all viral pneumonia. Procalcitonin not significantly elevated. Patient is saturating in the low 90s on a nonrebreather here in no significant respiratory distress. Discussed with patient strong recommendation for further inpatient care given significant o xygen usage from COVID-19 and he was agreeable for this. Hospitalist contacted. DIAGNOSIS: COVID-19 pneumonia, acute hypoxic respiratory failure, hyponatremia DISPOSITION: Hospitalist will evaluate Patient was agreeable with this plan. Critical Care I have personally spent 33 minutes of critical care time in the direct management of this patient. This includes bedside care, interpretation of diagnostic studies, and testing, discussion with consultants, patient, and family members, and other required patient management activities. These 33 minutes is in excess of all separately billable procedures. Past Med/Surg History Medical History (Updated 09/21/20 @ 22:59 by Richardson Davey M.D.) Acute renal insufficiency Anemia Aortic valve sclerosis Arthritis ATN (acute tubular necrosis) BMI 40.0-44.9, adult BPH (benign prostatic hyperplasia) BPH with obstruction/lower urinary tract symptoms Cellulitis Chronic pain of both knees Chronic pain syndrome Erectile dysfunction Fever Foot drop, left Gait disturbance Gout Hepatic steatosis History of dysplastic nevus Hypokalemia Hypotension Irritable bowel syndrome (IBS) Leukocytosis Lower urinary tract symptoms (LUTS) Lumbar spinal stenosis Lumbar spine tumor MGUS (monoclonal gammopathy of unknown significance) Nephrolithiasis Opioid dependence GUS on CPAP Periodic limb movement sleep disorder Pneumonia Restrictive lung disease Sepsis Septic shock Septicemia due to group B Streptococcus SIRS (systemic inflammatory response syndrome) Vitamin D deficiency Surgical History History of arthroscopy of knee right knee History of back surgery remove spinal cord tumor, 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 History of cataract surgery History of hemicolectomy History of lithotripsy renal History of liver biopsy due to elevated LFTs, states that in evidence of damage from heavy metal exposure Family History Father Blood clots in biliary tract following procedure father from embolic stroke after episodes of DVT Mother Cardiac disorder Diabetes Hypertension Kidney stone Brother Kidney stone Social History Smoking Status: Never smoker Age Started Using Tobacco: 17; Age Quit Using Tobacco: 23; packs per day: 1; Years Smoked: 26; Number of Years Since Quit: 35; Second Hand Exposure: No; Hx Alcohol Use: Yes Alcohol type: beer Alcohol Intake Frequency Comment: 2-3 per day Hx Substance Use: No Preferred Language: Chinese Communication Ability: Effective Visual Impairment: Diminished Hearing Ability: Hard of Hearing 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 Mechanic Required: No marital status: Current Living Situation: Spouse current occupational status: retired 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 Feels Safe at Home: Yes Childhood Exposure to Second-Hand Smoke: Yes caffeine: Yes Dental Care, Regularly: Yes Physical Activity Frequency: Does not Exercise Physical Activity Frequency Comment: DUE TO PHYSICAL CONDITION Seatbelt Use: always Sunscreen Use: Yes (SOMETIMES) Allergies Allergies Allergy/AdvReac Type Severity Reaction Status Date / Time tetracycline Allergy Unknown SORES IN Verified 09/21/20 22:09 MOUTH aspirin AdvReac Intermediate ulcer Verified 09/21/20 22:09 Home Meds Home Medications Medication Instructions Recorded Confirmed cholecalciferol (vitamin D3) 100 4,000 units PO DAILY 03/09/19 09/21/20 mcg (4,000 unit) capsule hydrocortisone 1 % topical cream 1 appln TOP TID PRN 03/09/19 09/21/20 ferrous sulfate 325 mg (65 mg 325 mg PO DAILY 11/23/19 09/21/20 iron) tablet ropinirole 2 mg PO HS 09/21/20 09/21/20 Previous Rx's Medication Instructions Recorded multivitamin 1 tab PO DAILY #30 tab 03/09/19 vitamin B complex 1 cap PO DAILY #30 cap 03/09/19 allopurinol 100 mg tablet 100 mg PO DAILY #90 tab 12/06/19 levocetirizine 5 mg tablet 5 mg PO DAILY #90 tab 12/07/19 duloxetine 60 mg capsule,delayed 60 mg PO DAILY #90 cap 12/28/19 release metoprolol tartrate 25 mg tablet 25 mg PO BID #180 tab 12/28/19 alfuzosin 10 mg tablet,extended 10 mg PO DAILY #90 tab 05/08/20 release 24 hr levothyroxine 25 mcg tablet 25 mcg PO DAILY #90 tab 06/18/20 pregabalin 100 mg capsule 100 mg PO TID #270 cap 06/19/20 lansoprazole 30 mg capsule,delayed 30 mg PO DAILY #90 cap 07/03/20 release mirabegron 50 mg tablet,extended 50 mg PO DAILY #90 tab 07/30/20 release 24 hr solifenacin 10 mg tablet 10 mg PO DAILY #90 tab 07/30/20 oxycodone-acetaminophen 10 mg-325 1 tab PO TID PRN #90 tab 09/11/20 mg tablet Results & Data (ED) Vital Signs Vital Signs - 24 hr 09/21/20 18:34 09/21/20 20:31 09/21/20 21:12 Temperature 38.1 C H Temperature Source Temporal Artery Scan Pulse Rate 51 L 99 H Pulse Rate from SpO2 Sensor 95 H Respiratory Rate 28 H 25 H Blood Pressure 176/69 H 189/100 H Blood Pressure Mean 104 127 Pulse Oximetry 92 90 68 L Oxygen Delivery Method Room Air Non-rebreather Room Air Non-rebreather Oxygen Flow Rate 15 Sepsis Recent Fever Within 48 Hours No Sepsis New/Unexplained Change in Mental Status No Sepsis Action Taken by Nursing No Action Required Oxygen Flow Rate - Titration 15 Pulse Oximetry Post Tiitration 92 09/21/20 21:40 09/21/20 22:32 Temperature Temperature Source Pulse Rate 113 H 100 H Pulse Rate from SpO2 Sensor 95 H Respiratory Rate 18 23 Blood Pressure 127/99 153/98 H Blood Pressure Mean 107 120 Pulse Oximetry 90 94 Oxygen Delivery Method Non-rebreather Non-rebreather Oxygen Flow Rate 15 15 Sepsis Recent Fever Within 48 Hours Sepsis New/Unexplained Change in Mental Status Sepsis Action Taken by Nursing Oxygen Flow Rate - Titration Pulse Oximetry Post Tiitration Laboratory Data Result diagrams: 09/21/20 21:27 09/21/20 21:31 Lab Results 09/21/20 09/21/20 09/21/20 Range/Units 20:46 20:50 20:50 WBC Cancelled RBC Cancelled Hgb Cancelled Hct Cancelled MCV Cancelled MCH Cancelled MCHC Cancelled RDW Std Deviation Cancelled RDW Coeff of Bisi Cancelled Plt Count Cancelled MPV Cancelled Immature Gran % (Auto) Cancelled Neut % (Auto) Cancelled Lymph % (Auto) Cancelled [place] % (Auto) Cancelled Eos % (Auto) Cancelled Baso % (Auto) Cancelled Neut # (Auto) Cancelled Lymph # (Auto) Cancelled [place] # (Auto) Cancelled Eos # (Auto) Cancelled Baso # (Auto) Cancelled Immature Gran # (Auto) Cancelled Absolute Nucleated RBC Cancelled Nucleated RBC % (auto) Cancelled Neutrophils % (Manual) Cancelled Band Neutrophils % Cancelled Lymphocytes % (Manual) Cancelled Prolymphocyte % Cancelled Reactive Lymphs % (Man) Cancelled Monocytes % (Manual) Cancelled Eosinophils % (Manual) Cancelled Basophils % (Manual) Cancelled Metamyelocytes % (Man) Cancelled Myelocytes % (Man) Cancelled Promyelocytes % (Man) Cancelled Blast Cells % (Manual) Cancelled Plasma Cell % (Manual) Cancelled Other Cells % Cancelled Nucleated RBC % Cancelled Neutrophils # (Manual) Cancelled Band Neutrophils # Cancelled Total Absolute Neuts Cancelled Lymphocytes # (Manual) Cancelled Prolymphocyte # Cancelled Reactive Lymphs # Cancelled Total Abs Lymphocytes Cancelled Monocytes # (Manual) Cancelled Eosinophils # (Manual) Cancelled Basophils # (Manual) Cancelled Metamyelocytes # (Man) Cancelled Myelocytes # (Manual) Cancelled Promyelocytes # (Man) Cancelled Blast Cells # (Man) Cancelled Plasma Cell # (Manual) Cancelled Other Cells # Cancelled Nucleated RBCs # (Man) Cancelled Hypersegmented Neuts Cancelled Hyposegmented Neuts Cancelled Hypogranular Neuts Cancelled Large Granular Lymphs Cancelled # Lrg Granular Lymphs Cancelled Hairy Cells Cancelled Smudge Cells Cancelled Toxic Granulation Cancelled Toxic Vacuolation Cancelled Dohle Bodies Cancelled [place]ovanny Rods Cancelled Platelet Estimate Cancelled Hypogranular Platelets Cancelled Clumped Platelets Cancelled Giant Platelets Cancelled Platelet Satelliting Cancelled RBC Morphology Cancelled Polychromasia Cancelled Hypochromasia Cancelled Poikilocytosis Cancelled Basophilic Stippling Cancelled Anisocytosis Cancelled Microcytosis Cancelled Macrocytosis Cancelled Spherocytes Cancelled Pappenheimer Bodies Cancelled Sickle Cells Cancelled Target Cells Cancelled Tear Drop Cells Cancelled Ovalocytes Cancelled Stomatocytes Cancelled [place] Bodies Cancelled Echinocytes Cancelled Acanthocytes (Spur) Cancelled Rouleaux Cancelled RBC Agglutinates Cancelled Schistocytes Cancelled RBC Morph Comment Cancelled Sezary Cell Cancelled PT 12.6 H (9.0-12.0) Seconds INR 1.2 H (0.9-1.1) Sodium (136-145) mmol/L Potassium (3.5-5.1) mmol/L Chloride (98-107) mmol/L Carbon Dioxide (21-32) mmol/L Anion Gap (3-11) BUN (7-18) mg/dl Creatinine (0.6-1.4) mg/dl Est Cr Clr Drug Dosing ml/min Est GFR ( Amer) Est GFR (Non-Af Amer) BUN/Creatinine Ratio (10-20) Glucose (70-99) mg/dl Lactate 2.5 H* (0.4-2.0) mmol/L Calcium (8.5-10.1) mg/dl Total Bilirubin (0.2-1) mg/dl AST (15-37) U/L ALT (12-78) U/L Alkaline Phosphatase (45-117) U/L Troponin I (0-0.045) ng/ml C-Reactive Protein (0-0.29) mg/dl Total Protein (6.4-8.2) gm/dl Albumin (3.4-5.0) gm/dl Globulin (2.5-4.0) gm/dl Albumin/Globulin Ratio (0.9-2) Lipase (73-393) U/L Procalcitonin Specimen Hemolysis Urine Color Urine Appearance (Clear) Urine pH (4.5-7.5) Ur Specific Post (1.000-1.030) Urine Protein (Negative) Urine Glucose (UA) (Negative) Urine Ketones (Negative) Urine Blood (Negative) Urine Nitrite (Negative) Urine Bilirubin (Negative) Urine Urobilinogen (Negative) Ur Leukocyte Esterase (Negative) Urine WBC (Auto) (0-5) /hpf Urine RBC (Auto) (0-4) /hpf U Hyaline Cast (Auto) (0-5) /lpf U Epithel Cells (Auto) (0-5) /lpf Urine Bacteria (Auto) (Negative) Blood Type Antibody Screen 09/21/20 09/21/20 09/21/20 Range/Units 20:50 20:50 21:27 WBC RBC Hgb Hct MCV MCH MCHC RDW Std Deviation RDW Coeff of Bisi Plt Count MPV Immature Gran % (Auto) Neut % (Auto) Lymph % (Auto) [place] % (Auto) Eos % (Auto) Baso % (Auto) Neut # (Auto) Lymph # (Auto) [place] # (Auto) Eos # (Auto) Baso # (Auto) Immature Gran # (Auto) Absolute Nucleated RBC Nucleated RBC % (auto) Neutrophils % (Manual) Band Neutrophils % Lymphocytes % (Manual) Prolymphocyte % Reactive Lymphs % (Man) Monocytes % (Manual) Eosinophils % (Manual) Basophils % (Manual) Metamyelocytes % (Man) Myelocytes % (Man) Promyelocytes % (Man) Blast Cells % (Manual) Plasma Cell % (Manual) Other Cells % Nucleated RBC % Neutrophils # (Manual) Band Neutrophils # Total Absolute Neuts Lymphocytes # (Manual) Prolymphocyte # Reactive Lymphs # Total Abs Lymphocytes Monocytes # (Manual) Eosinophils # (Manual) Basophils # (Manual) Metamyelocytes # (Man) Myelocytes # (Manual) Promyelocytes # (Man) Blast Cells # (Man) Plasma Cell # (Manual) Other Cells # Nucleated RBCs # (Man) Hypersegmented Neuts Hyposegmented Neuts Hypogranular Neuts Large Granular Lymphs # Lrg Granular Lymphs Hairy Cells Smudge Cells Toxic Granulation Toxic Vacuolation Dohle Bodies Yovanny Rods Platelet Estimate Hypogranular Platelets Clumped Platelets Giant Platelets Platelet Satelliting RBC Morphology Polychromasia Hypochromasia Poikilocytosis Basophilic Stippling Anisocytosis Microcytosis Macrocytosis Spherocytes Pappenheimer Bodies Sickle Cells Target Cells Tear Drop Cells Ovalocytes Stomatocytes [place] Bodies Echinocytes Acanthocytes (Spur) Rouleaux RBC Agglutinates Schistocytes RBC Morph Comment Sezary Cell PT (9.0-12.0) Seconds INR (0.9-1.1) Sodium 128 L (136-145) mmol/L Potassium (3.5-5.1) mmol/L Chloride 98 (98-107) mmol/L Carbon Dioxide 22 (21-32) mmol/L Anion Gap 8.0 (3-11) BUN 24 H (7-18) mg/dl Creatinine 1.38 (0.6-1.4) mg/dl Est Cr Clr Drug Dosing 55.0 ml/min Est GFR ( Amer) 59.2 Est GFR (Non-Af Amer) 51.1 BUN/Creatinine Ratio 17.3 (10-20) Glucose 93 (70-99) mg/dl Lactate (0.4-2.0) mmol/L Calcium 8.5 (8.5-10.1) mg/dl Total Bilirubin 0.8 (0.2-1) mg/dl AST (15-37) U/L ALT 31 (12-78) U/L Alkaline Phosphatase 117 (45-117) U/L Troponin I 0.043 (0-0.045) ng/ml C-Reactive Protein 11.60 H (0-0.29) mg/dl Total Protein 7.8 (6.4-8.2) gm/dl Albumin 3.0 L (3.4-5.0) gm/dl Globulin 4.8 H (2.5-4.0) gm/dl Albumin/Globulin Ratio 0.6 L (0.9-2) Lipase 86 (73-393) U/L Procalcitonin Cancelled Specimen Hemolysis Urine Color Urine Appearance (Clear) Urine pH (4.5-7.5) Ur Specific Post (1.000-1.030) Urine Protein (Negative) Urine Glucose (UA) (Negative) Urine Ketones (Negative) Urine Blood (Negative) Urine Nitrite (Negative) Urine Bilirubin (Negative) Urine Urobilinogen (Negative) Ur Leukocyte Esterase (Negative) Urine WBC (Auto) (0-5) /hpf Urine RBC (Auto) (0-4) /hpf U Hyaline Cast (Auto) (0-5) /lpf U Epithel Cells (Auto) (0-5) /lpf Urine Bacteria (Auto) (Negative) Blood Type A Positive Antibody Screen NEGATIVE 09/21/20 09/21/20 09/21/20 Range/Units 21:27 21:31 22:33 WBC 6.12 RBC 5.02 Hgb 14.7 Hct 42.6 MCV 84.9 MCH 29.3 MCHC 34.5 RDW Std Deviation 43.8 RDW Coeff of Bisi 14.1 Plt Count 166 MPV 11.5 H Immature Gran % (Auto) 0.8 Neut % (Auto) 71.4 Lymph % (Auto) 11.9 [place] % (Auto) 15.7 Eos % (Auto) 0.0 Baso % (Auto) 0.2 Neut # (Auto) 4.37 Lymph # (Auto) 0.73 L [place] # (Auto) 0.96 H Eos # (Auto) 0.00 Baso # (Auto) 0.01 Immature Gran # (Auto) 0.05 H Absolute Nucleated RBC Nucleated RBC % (auto) Neutrophils % (Manual) Band Neutrophils % Lymphocytes % (Manual) Prolymphocyte % Reactive Lymphs % (Man) Monocytes % (Manual) Eosinophils % (Manual) Basophils % (Manual) Metamyelocytes % (Man) Myelocytes % (Man) Promyelocytes % (Man) Blast Cells % (Manual) Plasma Cell % (Manual) Other Cells % Nucleated RBC % Neutrophils # (Manual) Band Neutrophils # Total Absolute Neuts Lymphocytes # (Manual) Prolymphocyte # Reactive Lymphs # Total Abs Lymphocytes Monocytes # (Manual) Eosinophils # (Manual) Basophils # (Manual) Metamyelocytes # (Man) Myelocytes # (Manual) Promyelocytes # (Man) Blast Cells # (Man) Plasma Cell # (Manual) Other Cells # Nucleated RBCs # (Man) Hypersegmented Neuts Hyposegmented Neuts Hypogranular Neuts Large Granular Lymphs # Lrg Granular Lymphs Hairy Cells Smudge Cells Toxic Granulation Toxic Vacuolation Dohle Bodies Yovanny Rods Platelet Estimate Hypogranular Platelets Clumped Platelets Giant Platelets Platelet Satelliting RBC Morphology Polychromasia Hypochromasia Poikilocytosis Basophilic Stippling Anisocytosis Microcytosis Macrocytosis Spherocytes Pappenheimer Bodies Sickle Cells Target Cells Tear Drop Cells Ovalocytes Stomatocytes [place] Bodies Echinocytes Acanthocytes (Spur) Rouleaux RBC Agglutinates Schistocytes RBC Morph Comment Sezary Cell PT (9.0-12.0) Seconds INR (0.9-1.1) Sodium (136-145) mmol/L Potassium 4.5 (3.5-5.1) mmol/L Chloride (98-107) mmol/L Carbon Dioxide (21-32) mmol/L Anion Gap (3-11) BUN (7-18) mg/dl Creatinine (0.6-1.4) mg/dl Est Cr Clr Drug Dosing ml/min Est GFR ( Amer) Est GFR (Non-Af Amer) BUN/Creatinine Ratio (10-20) Glucose (70-99) mg/dl Lactate (0.4-2.0) mmol/L Calcium (8.5-10.1) mg/dl Total Bilirubin (0.2-1) mg/dl AST 64 H (15-37) U/L ALT (12-78) U/L Alkaline Phosphatase (45-117) U/L Troponin I (0-0.045) ng/ml C-Reactive Protein (0-0.29) mg/dl Total Protein (6.4-8.2) gm/dl Albumin (3.4-5.0) gm/dl Globulin (2.5-4.0) gm/dl Albumin/Globulin Ratio (0.9-2) Lipase (73-393) U/L Procalcitonin Specimen Hemolysis Urine Color Yellow Urine Appearance Clear (Clear) Urine pH 5.0 (4.5-7.5) Ur Specific Post 1.018 (1.000-1.030) Urine Protein 2+ H (Negative) Urine Glucose (UA) Negative (Negative) Urine Ketones Negative (Negative) Urine Blood 1+ H (Negative) Urine Nitrite Negative (Negative) Urine Bilirubin Negative (Negative) Urine Urobilinogen Negative (Negative) Ur Leukocyte Esterase Negative (Negative) Urine WBC (Auto) 1-5 (0-5) /hpf Urine RBC (Auto) 0-4 (0-4) /hpf U Hyaline Cast (Auto) 1-5 (0-5) /lpf U Epithel Cells (Auto) 0-5 (0-5) /lpf Urine Bacteria (Auto) Negative (Negative) Blood Type Antibody Screen Administered Medications Discontinued Medications Dexamethasone (Dexamethasone Sod Inj 10 Mg/Ml Vial) 6 mg IV NOW ONE Stop: 09/21/20 20:38 Last Admin: 09/21/20 21:30 Dose: 6 mg Documented by: [id number] Sodium Chloride (Nss 1000ml) 500 mls @ 999 mls/hr IV .Q31M ONE Stop: 09/21/20 21:07 Last Infusion: 09/21/20 22:33 Dose: 0 mls/hr Documented by: [id number] Admin: 09/21/20 21:30 Dose: 999 mls/hr Documented by: [id number] Ioversol (Optiray 320 125ml) 118 ml IV ONCE ONE Stop: 09/21/20 21:14 Last Admin: 09/21/20 21:14 Dose: 118 ml Documented by: [id number] Discharge Plan Visit Data Chief Complaint: Shortness of Breath/Dyspnea Stated Complaint: COVID+, PULSE OX LOW ED Provider: Richardson Davey Discharge Problem: Pneumonia due to COVID-19 virus, Acute respiratory failure with hypoxia, Hyponatremia Patient Disposition: Admitted As Inpatient Condition: Good Prescriptions Prescriptions: No Action allopurinol 100 mg tablet 100 mg PO DAILY Qty: 90 RF: 3 levocetirizine [Xyzal] 5 mg tablet 5 mg PO DAILY Qty: 90 RF: 3 duloxetine 60 mg capsule,delayed release(DR/EC) 60 mg PO DAILY Qty: 90 RF: 3 metoprolol tartrate 25 mg tablet 25 mg PO BID Qty: 180 RF: 3 alfuzosin 10 mg tablet extended release 24 hr 10 mg PO DAILY Qty: 90 RF: 3 levothyroxine 25 mcg tablet 25 mcg PO DAILY Qty: 90 RF: 3 pregabalin [Lyrica] 100 mg capsule 100 mg PO TID Qty: 270 RF: 3 lansoprazole 30 mg capsule,delayed release(DR/EC) 30 mg PO DAILY Qty: 90 RF: 3 oxycodone-acetaminophen 10-325 mg tablet 1 tab PO TID PRN (Reason: pain) Qty: 90 RF: 0 Vitamin D3 4,000 unit capsule 4,000 units PO DAILY RF: 0 hydrocortisone [Anti-Itch (HC)] 1 % cream 1 appln TOP TID PRN (Reason: ITCHINESS) RF: 0 multivitamin [Daily Multi-Vitamin] tablet 1 tab PO DAILY Qty: 30 RF: 0 vitamin B complex capsule 1 cap PO DAILY Qty: 30 RF: 0 solifenacin [Vesicare] 10 mg tablet 10 mg PO DAILY Qty: 90 RF: 3 Myrbetriq 50 mg tablet extended release 24 hr 50 mg PO DAILY Qty: 90 RF: 3 ferrous sulfate [Feosol] 325 mg (65 mg iron) tablet 325 mg PO DAILY RF: 0 ropinirole 1 mg tablet 2 mg PO HS RF: 0 Referrals Referrals: Carlo Willingham MD [Primary Care Provider] -
[2020-09-21 21:37] LABS: Basophils # (auto) 0.01 K/uL (0-0.2); Basophils % (auto) 0.2 %; Hematocrit (blood only) 42.6 % (42-52); Hemoglobin 14.7 g/dL (14.0-18.0); Immature Granulocytes # (auto) 0.05 K/uL (0.00-0.02); Immature Granulocytes % (auto) 0.8 %; Lymphocytes # (auto) 0.73 K/uL (1.2-3.4); Lymphocytes % (auto) 11.9 %; Mean Corpuscular Hemoglobin 29.3 pg (25-34); Mean Corpuscular Hgb Conc 34.5 g/dL (32-36); Mean Corpuscular Volume 84.9 fL (80-100); Mean Platelet Volume 11.5 fL (7.4-10.4); Monocytes # (auto) 0.96 K/uL (0.11-0.59); Monocytes % (auto) 15.7 %; Neutrophils # (auto) 4.37 K/uL (1.4-6.5); Neutrophils % (auto) 71.4 %; Platelet Count 166 K/uL (130-400); RDW Coefficient of Variation 14.1 % (11.5-14.5); RDW Standard Deviation 43.8 fL (36.4-46.3); Red Blood Count 5.02 M/uL (4.7-6.1); White Blood Count 6.12 K/uL (4.8-10.8)
[2020-09-21 22:26] LABS: Potassium 4.5 mmol/L (3.5-5.1)
--- NOTE | 2020-09-21 22:41 | CT Scan Report ---
CT angio chest PE protocol CT DOSE: 644.72 mGycm HISTORY: 69 years-old Male with PE, sob, COVID, hypoxia. Acute shortness of breath and hypoxia. COV ID Positive. TECHNIQUE: Multiple CTA images of the chest were obtained after the intravenous administration of 118 ml Optiray 320. Coronal and sagittal MIPS were obtained from the axial data set and were submitted for review. All measurements were obtained according to NASCET criteria. A dose lowering technique w as utilized adhering to the principles of ALARA. COMPARISON: Chest radiograph of same day, CT abdomen and pelvis 05/05/2017 FINDINGS: CTA: Moderate cardiomegaly. Trace pericardial effusion. Mild coronary artery with moderate aortic annular calcifications. Mild mixed plaque of the thoracic aorta without aneurysm or dissection. There is whitney ncy of the imaged great vessels. Limited evaluation of the pulmonary arterial tree secondary to respi ratory motion and contrast bolus timing. The segmental and subsegmental branches specifically are not well evaluated. No central pulmonary emboli identified. CT CHEST: There are a few small hypodense thyroid nodules noted. Enlarged paratracheal, subcarinal and hilar ly mph nodes are present measuring up to 1.5 cm within the subcarinal distribution. Trace layering pleur al effusions. No pneumothorax. Mild intralobular septal thickening is noted bilaterally with patchy m ultisegmental multilobar distribution of alveolar opacities. Central airways are patent. There is no acute process of the imaged upper abdomen. Unremarkable soft tissues. The bones appear in tact. Bridging anterior endplate osteophytosis throughout the thoracic spine. IMPRESSION: 1. Limited exam as above with no pulmonary emboli identified. 2. Multisegmental multilobar distribution of alveolar opacities with areas of mild intralobular septa l thickening suggests multifocal pneumonia. Superimposed pulmonary edema with be difficult to exclude . 3. Trace pleural effusions. 4. Mild mediastinal and hilar adenopathy, likely reactive. 5. Cardiomegaly. ACT 112: Negative or not required by law. The above report was generated using voice recognition software. It may contain grammatical, syntax o r spelling errors. Electronically signed by: Casimiro Marcano M.D. 09/21/2020 10:39 PM
[2020-09-21 22:53] LABS: Appearance Urine Clear (Clear); Bacteria Urine Automated Negative (Negative); Bilirubin Urine Negative (Negative); Blood Urine 1+ (Negative); Color Urine Yellow; Epithelial Cell Urine Auto 0-5 /lpf (0-5); Glucose Urine UA Negative (Negative); Ketones Urine Negative (Negative); Leukocyte Esterase Urine Negative (Negative); Nitrite Urine Negative (Negative); Protein Urine 2+ (Negative); RBC Urine Automated 0-4 /hpf (0-4); Specific Gravity Urine 1.018 (1.000-1.030); Urobilinogen Urine Negative (Negative)
[2020-09-22] MEDS ORDERED: oxyCODONE/ACETAMINOPHEN 10-325 TAB PO STA (00:25)
[2020-09-22] MEDS ORDERED: PREGABALIN 100 MG CAP PO STA (00:25)
--- NOTE | 2020-09-22 00:32 | History & Physical Report ---
Date of Service September 22, 2020 Assessment & Plan (1) Pneumonia due to COVID-19 virus: 69yo C male presenting with acute hypoxic respiratory failure in setting of multifocal PNA from Covid-19. He has had symtpoms for 9 days, tested positive 7 days ago. Concern that current symptoms are secondary to acute inflammatory response rather than virus. He is lymphopenic. Elevated inflammatory markers - CRP=11.6. Elevated lactate thought to be secondary to hypoxemia. Patient is HD stable with no episodes of hypotension. Concern for severe disease given age, gender, body habitus as well as hyponatremia, elevated AST -Check ESR, Ferritin, Ddimer, LDH -Check BNP - ?gentle diuresis if elevated -Repeat lactic acid -Patient has had symptoms for 9-10 days at this point - he would most likely receive no clinical benefit from Remdesivir or convalescent plasma. -Dexamethasone 6mg IV daily -Albuterol HFA PRN -Guaifenasin PRN -Supplemental O2 as needed to maintain oxygen saturation >92%. Patient may benefit from self-proning if body habitus allows -Lovenox 40 BID Present on Admission?: Yes (2) Acute respiratory failure with hypoxia: Secondary to Covid-19 PNA -Plan as above -Currently with adequate oxygenation on 15L NRB Present on Admission?: Yes (3) Hyponatremia: Dx=193 in setting of Covid-19 infection. Common electrolyte abnormality with this disease - ?secondary to SIADH vs systemic inflammation. Patient appears euvolemic on exam. -NSS x 500mL given in ER -Check serum and urine osm and urine sodium -Continue to monitor Present on Admission?: Yes (4) Vitamin D deficiency: Chronic. Stable -Continue supplementation Present on Admission?: Yes (5) Restrictive lung disease: (6) GUS on CPAP: Chronic -CPAP qHS at [id number] Present on Admission?: Yes (7) Gout: Chronic. Stable. No acute flare at present -Continue Allopurinol Present on Admission?: Yes (8) BPH with obstruction/lower urinary tract symptoms: Patinent with urinary incontinence. No evidence of UTI -Continue alfuzosin -Continue solifenacin Present on Admission?: Yes (9) Hypertension: Blood pressure stable, currently 153/98 -Continue Metoprolol tartrate 25mg po BID -Continue to monitor Present on Admission?: Yes (10) Hypothyroidism: Chronic. Stable. Last TSH in 10/24 = 3.95 -Continue Synthroid 25mcg po daily Present on Admission?: Yes (11) Opioid dependence: Patient with chronic pain and neuropathy -Continue Percocet 10/325 TID -Continue Lyrica 100mg po TID -Continue Duloxetine Present on Admission?: Yes (12) Acid reflux: Chronic. Stable -Pepcid 20mg IV BID - may have effect on disease severity in Covid-19 F/E/N - Heplock. Monitor electroltyes and correct as needed. Heart healthy diet as tolerated with aspiration precautions Ppx - Lovenox 40mg BID Code- Full per discussion with patient Dispo - Admit to PCU Present on Admission?: Yes History of Present Illness Chief Complaint: Covid-19 PNA Primary Care Provider: Carlo Willingham MD Zurdo Camacho is a 69yo C male presenting with Covid-19 PNA and hypoxemia. Patient initially developed symptoms on 09/12/20 with fever, mild cough and diarrhea x 1 episode. He had a Covid-19 test performed on 09/14/20 by his PCP which was POSITIVE. Patient was doing fairly well at home. Today he developed worsening fever, cough, SOB/TATE and hoarseness. He denies chest pain, loss of taste or smell, nausea or vomiting. Patient is a poor historian. Details were corroborated with patient's . Upon arrival to the ER patient was febrile at 38.1 hypoxic to 68% on room air and tachypneic. He was placed on NRB 15L with improvement in oxygenation. Currently 94% ER Course: Dexamethasone 6mg IV, NSS x 500mL Allergies Allergy/AdvReac Type Severity Reaction Status Date / Time tetracycline Allergy Unknown SORES IN Verified 09/21/20 22:09 MOUTH aspirin AdvReac Intermediate ulcer Verified 09/21/20 22:09 Home Medications Medication Instructions Recorded Confirmed Type cholecalciferol (vitamin D3) 100 4,000 units PO DAILY 03/09/19 09/21/20 History mcg (4,000 unit) capsule hydrocortisone 1 % topical cream 1 appln TOP TID PRN 03/09/19 09/21/20 History multivitamin 1 tab PO DAILY #30 tab 03/09/19 09/21/20 Rx vitamin B complex 1 cap PO DAILY #30 cap 03/09/19 09/21/20 Rx ferrous sulfate 325 mg (65 mg 325 mg PO DAILY 11/23/19 09/21/20 History iron) tablet allopurinol 100 mg tablet 100 mg PO DAILY #90 tab 12/06/19 09/21/20 Rx levocetirizine 5 mg tablet 5 mg PO DAILY #90 tab 12/07/19 09/21/20 Rx duloxetine 60 mg capsule,delayed 60 mg PO DAILY #90 cap 12/28/19 09/21/20 Rx release metoprolol tartrate 25 mg tablet 25 mg PO BID #180 tab 12/28/19 09/21/20 Rx alfuzosin 10 mg tablet,extended 10 mg PO DAILY #90 tab 05/08/20 09/21/20 Rx release 24 hr levothyroxine 25 mcg tablet 25 mcg PO DAILY #90 tab 06/18/20 09/21/20 Rx pregabalin 100 mg capsule 100 mg PO TID #270 cap 06/19/20 09/21/20 Rx lansoprazole 30 mg capsule,delayed 30 mg PO DAILY #90 cap 07/03/20 09/21/20 Rx release mirabegron 50 mg tablet,extended 50 mg PO DAILY #90 tab 07/30/20 09/21/20 Rx release 24 hr solifenacin 10 mg tablet 10 mg PO DAILY #90 tab 07/30/20 09/21/20 Rx oxycodone-acetaminophen 10 mg-325 1 tab PO TID PRN #90 tab 09/11/20 09/21/20 Rx mg tablet ropinirole 2 mg PO HS 09/21/20 09/21/20 History Past Med/Surg History Medical History (Updated 09/22/20 @ 01:09 by Carole Villalba DO) Acute renal insufficiency Anemia Aortic valve sclerosis Arthritis ATN (acute tubular necrosis) BMI 40.0-44.9, adult BPH (benign prostatic hyperplasia) BPH with obstruction/lower urinary tract symptoms Cellulitis Chronic pain of both knees Chronic pain syndrome Erectile dysfunction Fever Foot drop, left Gait disturbance Gout Hepatic steatosis History of dysplastic nevus Hypokalemia Hypotension Irritable bowel syndrome (IBS) Leukocytosis Lower urinary tract symptoms (LUTS) Lumbar spinal stenosis Lumbar spine tumor MGUS (monoclonal gammopathy of unknown significance) Nephrolithiasis Opioid dependence GUS on CPAP Periodic limb movement sleep disorder Pneumonia Restrictive lung disease Sepsis Septic shock Septicemia due to group B Streptococcus SIRS (systemic inflammatory response syndrome) Vitamin D deficiency Surgical History History of arthroscopy of knee right knee History of back surgery remove spinal cord tumor, 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 History of cataract surgery History of hemicolectomy History of lithotripsy renal History of liver biopsy due to elevated LFTs, states that in evidence of damage from heavy metal exposure Family History Father Blood clots in biliary tract following procedure father from embolic stroke after episodes of DVT Mother Cardiac disorder Diabetes Hypertension Kidney stone Brother Kidney stone Social History Smoking Status: Never smoker Age Started Using Tobacco: 17; Age Quit Using Tobacco: 23; packs per day: 1; Years Smoked: 26; Number of Years Since Quit: 35; Second Hand Exposure: No; Hx Alcohol Use: Yes Alcohol type: beer Alcohol Intake Frequency Comment: 2-3 per day Hx Substance Use: No Preferred Language: Belgian Communication Ability: Effective Visual Impairment: Diminished Hearing Ability: Hard of Hearing 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 Required: No marital status: Current Living Situation: Spouse current occupational status: retired 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 Feels Safe at Home: Yes Childhood Exposure to Second-Hand Smoke: Yes caffeine: Yes Dental Care, Regularly: Yes Physical Activity Frequency: Does not Exercise Physical Activity Frequency Comment: DUE TO PHYSICAL CONDITION Seatbelt Use: always Sunscreen Use: Yes (SOMETIMES) Review of Systems Review of Systems: All systems reviewed & are unremarkable except as noted in HPI & below Physical Exam Physical Exam: General: patient resting comfortably in wheelchair, NRB in place, soft/hoarse voice Skin: warm, dry, intact, no rashes or lesions HEENT: NC/AT, PERRL, EOMI, anicteric sclera, conjunctiva without injection, external ear normal to inspection and nontender, nares patent, moist mucus membranes, dentition intact, no oropharyngeal lesions, neck supple, trachea midline, no LAD, no thyromegaly, no JVD Heart: +S1/S2, regular, tachycardic, no m/r/g Lungs: equal air entry bilaterally, no rales/rhonchi/wheezes Abd: +BS, soft, NT/ND, no masses/organomegaly/ascites Ext: warm, 2+ pulses in UE/LE bilaterally, trace pitting edema bilaterally Neuro: nonfocal, patient AA&O x 4, speech intact, no facial droop, moving all extremities on command with equal strength 5/5 Results & Data Results & Data ([facility]) Vital Signs (Past 12 Hours) Vital Signs Temp Pulse Resp BP Pulse Ox 09/21/20 22:32 100 H 23 153/98 H 94 09/21/20 21:40 113 H 18 127/99 90 09/21/20 21:12 68 L 09/21/20 20:31 99 H 25 H 189/100 H 90 09/21/20 18:34 38.1 C H 51 L 28 H 176/69 H 92 Laboratory Results Lab Results 09/21/20 09/21/20 09/21/20 Range/Units 20:46 20:50 20:50 WBC Cancelled RBC Cancelled Hgb Cancelled Hct Cancelled MCV Cancelled MCH Cancelled MCHC Cancelled RDW Std Deviation Cancelled RDW Coeff of Bisi Cancelled Plt Count Cancelled MPV Cancelled Immature Gran % (Auto) Cancelled Neut % (Auto) Cancelled Lymph % (Auto) Cancelled [place] % (Auto) Cancelled Eos % (Auto) Cancelled Baso % (Auto) Cancelled Neut # (Auto) Cancelled Lymph # (Auto) Cancelled [place] # (Auto) Cancelled Eos # (Auto) Cancelled Baso # (Auto) Cancelled Immature Gran # (Auto) Cancelled Absolute Nucleated RBC Cancelled Nucleated RBC % (auto) Cancelled Neutrophils % (Manual) Cancelled Band Neutrophils % Cancelled Lymphocytes % (Manual) Cancelled Prolymphocyte % Cancelled Reactive Lymphs % (Man) Cancelled Monocytes % (Manual) Cancelled Eosinophils % (Manual) Cancelled Basophils % (Manual) Cancelled Metamyelocytes % (Man) Cancelled Myelocytes % (Man) Cancelled Promyelocytes % (Man) Cancelled Blast Cells % (Manual) Cancelled Plasma Cell % (Manual) Cancelled Other Cells % Cancelled Nucleated RBC % Cancelled Neutrophils # (Manual) Cancelled Band Neutrophils # Cancelled Total Absolute Neuts Cancelled Lymphocytes # (Manual) Cancelled Prolymphocyte # Cancelled Reactive Lymphs # Cancelled Total Abs Lymphocytes Cancelled Monocytes # (Manual) Cancelled Eosinophils # (Manual) Cancelled Basophils # (Manual) Cancelled Metamyelocytes # (Man) Cancelled Myelocytes # (Manual) Cancelled Promyelocytes # (Man) Cancelled Blast Cells # (Man) Cancelled Plasma Cell # (Manual) Cancelled Other Cells # Cancelled Nucleated RBCs # (Man) Cancelled Hypersegmented Neuts Cancelled Hyposegmented Neuts Cancelled Hypogranular Neuts Cancelled Large Granular Lymphs Cancelled # Lrg Granular Lymphs Cancelled Hairy Cells Cancelled Smudge Cells Cancelled Toxic Granulation Cancelled Toxic Vacuolation Cancelled Dohle Bodies Cancelled Yovanny Rods Cancelled Platelet Estimate Cancelled Hypogranular Platelets Cancelled Clumped Platelets Cancelled Giant Platelets Cancelled Platelet Satelliting Cancelled RBC Morphology Cancelled Polychromasia Cancelled Hypochromasia Cancelled Poikilocytosis Cancelled Basophilic Stippling Cancelled Anisocytosis Cancelled Microcytosis Cancelled Macrocytosis Cancelled Spherocytes Cancelled Pappenheimer Bodies Cancelled Sickle Cells Cancelled Target Cells Cancelled Tear Drop Cells Cancelled Ovalocytes Cancelled Stomatocytes Cancelled [place] Bodies Cancelled Echinocytes Cancelled Acanthocytes (Spur) Cancelled Rouleaux Cancelled RBC Agglutinates Cancelled Schistocytes Cancelled RBC Morph Comment Cancelled Sezary Cell Cancelled PT 12.6 H (9.0-12.0) Seconds INR 1.2 H (0.9-1.1) Sodium (136-145) mmol/L Potassium (3.5-5.1) mmol/L Chloride (98-107) mmol/L Carbon Dioxide (21-32) mmol/L Anion Gap (3-11) BUN (7-18) mg/dl Creatinine (0.6-1.4) mg/dl Est Cr Clr Drug Dosing ml/min Est GFR ( Amer) Est GFR (Non-Af Amer) BUN/Creatinine Ratio (10-20) Glucose (70-99) mg/dl Lactate 2.5 H* (0.4-2.0) mmol/L Calcium (8.5-10.1) mg/dl Total Bilirubin (0.2-1) mg/dl AST (15-37) U/L ALT (12-78) U/L Alkaline Phosphatase (45-117) U/L Troponin I (0-0.045) ng/ml C-Reactive Protein (0-0.29) mg/dl Total Protein (6.4-8.2) gm/dl Albumin (3.4-5.0) gm/dl Globulin (2.5-4.0) gm/dl Albumin/Globulin Ratio (0.9-2) Lipase (73-393) U/L Procalcitonin Specimen Hemolysis Urine Color Urine Appearance (Clear) Urine pH (4.5-7.5) Ur Specific [place] (1.000-1.030) Urine Protein (Negative) Urine Glucose (UA) (Negative) Urine Ketones (Negative) Urine Blood (Negative) Urine Nitrite (Negative) Urine Bilirubin (Negative) Urine Urobilinogen (Negative) Ur Leukocyte Esterase (Negative) Urine WBC (Auto) (0-5) /hpf Urine RBC (Auto) (0-4) /hpf U Hyaline Cast (Auto) (0-5) /lpf U Epithel Cells (Auto) (0-5) /lpf Urine Bacteria (Auto) (Negative) Blood Type Antibody Screen 09/21/20 09/21/20 09/21/20 Range/Units 20:50 20:50 21:27 WBC RBC Hgb Hct MCV MCH MCHC RDW Std Deviation RDW Coeff of Bisi Plt Count MPV Immature Gran % (Auto) Neut % (Auto) Lymph % (Auto) [place] % (Auto) Eos % (Auto) Baso % (Auto) Neut # (Auto) Lymph # (Auto) [place] # (Auto) Eos # (Auto) Baso # (Auto) Immature Gran # (Auto) Absolute Nucleated RBC Nucleated RBC % (auto) Neutrophils % (Manual) Band Neutrophils % Lymphocytes % (Manual) Prolymphocyte % Reactive Lymphs % (Man) Monocytes % (Manual) Eosinophils % (Manual) Basophils % (Manual) Metamyelocytes % (Man) Myelocytes % (Man) Promyelocytes % (Man) Blast Cells % (Manual) Plasma Cell % (Manual) Other Cells % Nucleated RBC % Neutrophils # (Manual) Band Neutrophils # Total Absolute Neuts Lymphocytes # (Manual) Prolymphocyte # Reactive Lymphs # Total Abs Lymphocytes Monocytes # (Manual) Eosinophils # (Manual) Basophils # (Manual) Metamyelocytes # (Man) Myelocytes # (Manual) Promyelocytes # (Man) Blast Cells # (Man) Plasma Cell # (Manual) Other Cells # Nucleated RBCs # (Man) Hypersegmented Neuts Hyposegmented Neuts Hypogranular Neuts Large Granular Lymphs # Lrg Granular Lymphs Hairy Cells Smudge Cells Toxic Granulation Toxic Vacuolation Dohle Bodies Yovanny Rods Platelet Estimate Hypogranular Platelets Clumped Platelets Giant Platelets Platelet Satelliting RBC Morphology Polychromasia Hypochromasia Poikilocytosis Basophilic Stippling Anisocytosis Microcytosis Macrocytosis Spherocytes Pappenheimer Bodies Sickle Cells Target Cells Tear Drop Cells Ovalocytes Stomatocytes [place] Bodies Echinocytes Acanthocytes (Spur) Rouleaux RBC Agglutinates Schistocytes RBC Morph Comment Sezary Cell PT (9.0-12.0) Seconds INR (0.9-1.1) Sodium 128 L (136-145) mmol/L Potassium (3.5-5.1) mmol/L Chloride 98 (98-107) mmol/L Carbon Dioxide 22 (21-32) mmol/L Anion Gap 8.0 (3-11) BUN 24 H (7-18) mg/dl Creatinine 1.38 (0.6-1.4) mg/dl Est Cr Clr Drug Dosing 55.0 ml/min Est GFR ( Amer) 59.2 Est GFR (Non-Af Amer) 51.1 BUN/Creatinine Ratio 17.3 (10-20) Glucose 93 (70-99) mg/dl Lactate (0.4-2.0) mmol/L Calcium 8.5 (8.5-10.1) mg/dl Total Bilirubin 0.8 (0.2-1) mg/dl AST (15-37) U/L ALT 31 (12-78) U/L Alkaline Phosphatase 117 (45-117) U/L Troponin I 0.043 (0-0.045) ng/ml C-Reactive Protein 11.60 H (0-0.29) mg/dl Total Protein 7.8 (6.4-8.2) gm/dl Albumin 3.0 L (3.4-5.0) gm/dl Globulin 4.8 H (2.5-4.0) gm/dl Albumin/Globulin Ratio 0.6 L (0.9-2) Lipase 86 (73-393) U/L Procalcitonin Cancelled Specimen Hemolysis Urine Color Urine Appearance (Clear) Urine pH (4.5-7.5) Ur Specific [place] (1.000-1.030) Urine Protein (Negative) Urine Glucose (UA) (Negative) Urine Ketones (Negative) Urine Blood (Negative) Urine Nitrite (Negative) Urine Bilirubin (Negative) Urine Urobilinogen (Negative) Ur Leukocyte Esterase (Negative) Urine WBC (Auto) (0-5) /hpf Urine RBC (Auto) (0-4) /hpf U Hyaline Cast (Auto) (0-5) /lpf U Epithel Cells (Auto) (0-5) /lpf Urine Bacteria (Auto) (Negative) Blood Type A Positive Antibody Screen NEGATIVE 09/21/20 09/21/20 09/21/20 Range/Units 21:27 21:31 21:35 WBC 6.12 RBC 5.02 Hgb 14.7 Hct 42.6 MCV 84.9 MCH 29.3 MCHC 34.5 RDW Std Deviation 43.8 RDW Coeff of Bisi 14.1 Plt Count 166 MPV 11.5 H Immature Gran % (Auto) 0.8 Neut % (Auto) 71.4 Lymph % (Auto) 11.9 [place] % (Auto) 15.7 Eos % (Auto) 0.0 Baso % (Auto) 0.2 Neut # (Auto) 4.37 Lymph # (Auto) 0.73 L [place] # (Auto) 0.96 H Eos # (Auto) 0.00 Baso # (Auto) 0.01 Immature Gran # (Auto) 0.05 H Absolute Nucleated RBC Nucleated RBC % (auto) Neutrophils % (Manual) Band Neutrophils % Lymphocytes % (Manual) Prolymphocyte % Reactive Lymphs % (Man) Monocytes % (Manual) Eosinophils % (Manual) Basophils % (Manual) Metamyelocytes % (Man) Myelocytes % (Man) Promyelocytes % (Man) Blast Cells % (Manual) Plasma Cell % (Manual) Other Cells % Nucleated RBC % Neutrophils # (Manual) Band Neutrophils # Total Absolute Neuts Lymphocytes # (Manual) Prolymphocyte # Reactive Lymphs # Total Abs Lymphocytes Monocytes # (Manual) Eosinophils # (Manual) Basophils # (Manual) Metamyelocytes # (Man) Myelocytes # (Manual) Promyelocytes # (Man) Blast Cells # (Man) Plasma Cell # (Manual) Other Cells # Nucleated RBCs # (Man) Hypersegmented Neuts Hyposegmented Neuts Hypogranular Neuts Large Granular Lymphs # Lrg Granular Lymphs Hairy Cells Smudge Cells Toxic Granulation Toxic Vacuolation Dohle Bodies Yovanny Rods Platelet Estimate Hypogranular Platelets Clumped Platelets Giant Platelets Platelet Satelliting RBC Morphology Polychromasia Hypochromasia Poikilocytosis Basophilic Stippling Anisocytosis Microcytosis Macrocytosis Spherocytes Pappenheimer Bodies Sickle Cells Target Cells Tear Drop Cells Ovalocytes Stomatocytes [place] Bodies Echinocytes Acanthocytes (Spur) Rouleaux RBC Agglutinates Schistocytes RBC Morph Comment Sezary Cell PT (9.0-12.0) Seconds INR (0.9-1.1) Sodium (136-145) mmol/L Potassium 4.5 (3.5-5.1) mmol/L Chloride (98-107) mmol/L Carbon Dioxide (21-32) mmol/L Anion Gap (3-11) BUN (7-18) mg/dl Creatinine (0.6-1.4) mg/dl Est Cr Clr Drug Dosing ml/min Est GFR ( Amer) Est GFR (Non-Af Amer) BUN/Creatinine Ratio (10-20) Glucose (70-99) mg/dl Lactate (0.4-2.0) mmol/L Calcium (8.5-10.1) mg/dl Total Bilirubin (0.2-1) mg/dl AST 64 H (15-37) U/L ALT (12-78) U/L Alkaline Phosphatase (45-117) U/L Troponin I (0-0.045) ng/ml C-Reactive Protein (0-0.29) mg/dl Total Protein (6.4-8.2) gm/dl Albumin (3.4-5.0) gm/dl Globulin (2.5-4.0) gm/dl Albumin/Globulin Ratio (0.9-2) Lipase (73-393) U/L Procalcitonin 0.20 Specimen Hemolysis Urine Color Urine Appearance (Clear) Urine pH (4.5-7.5) Ur Specific [place] (1.000-1.030) Urine Protein (Negative) Urine Glucose (UA) (Negative) Urine Ketones (Negative) Urine Blood (Negative) Urine Nitrite (Negative) Urine Bilirubin (Negative) Urine Urobilinogen (Negative) Ur Leukocyte Esterase (Negative) Urine WBC (Auto) (0-5) /hpf Urine RBC (Auto) (0-4) /hpf U Hyaline Cast (Auto) (0-5) /lpf U Epithel Cells (Auto) (0-5) /lpf Urine Bacteria (Auto) (Negative) Blood Type Antibody Screen 09/21/20 09/21/20 Range/Units 22:33 22:35 WBC RBC Hgb Hct MCV MCH MCHC RDW Std Deviation RDW Coeff of Bisi Plt Count MPV Immature Gran % (Auto) Neut % (Auto) Lymph % (Auto) [place] % (Auto) Eos % (Auto) Baso % (Auto) Neut # (Auto) Lymph # (Auto) [place] # (Auto) Eos # (Auto) Baso # (Auto) Immature Gran # (Auto) Absolute Nucleated RBC Nucleated RBC % (auto) Neutrophils % (Manual) Band Neutrophils % Lymphocytes % (Manual) Prolymphocyte % Reactive Lymphs % (Man) Monocytes % (Manual) Eosinophils % (Manual) Basophils % (Manual) Metamyelocytes % (Man) Myelocytes % (Man) Promyelocytes % (Man) Blast Cells % (Manual) Plasma Cell % (Manual) Other Cells % Nucleated RBC % Neutrophils # (Manual) Band Neutrophils # Total Absolute Neuts Lymphocytes # (Manual) Prolymphocyte # Reactive Lymphs # Total Abs Lymphocytes Monocytes # (Manual) Eosinophils # (Manual) Basophils # (Manual) Metamyelocytes # (Man) Myelocytes # (Manual) Promyelocytes # (Man) Blast Cells # (Man) Plasma Cell # (Manual) Other Cells # Nucleated RBCs # (Man) Hypersegmented Neuts Hyposegmented Neuts Hypogranular Neuts Large Granular Lymphs # Lrg Granular Lymphs Hairy Cells Smudge Cells Toxic Granulation Toxic Vacuolation Dohle Bodies Yovanny Rods Platelet Estimate Hypogranular Platelets Clumped Platelets Giant Platelets Platelet Satelliting RBC Morphology Polychromasia Hypochromasia Poikilocytosis Basophilic Stippling Anisocytosis Microcytosis Macrocytosis Spherocytes Pappenheimer Bodies Sickle Cells Target Cells Tear Drop Cells Ovalocytes Stomatocytes [place] Bodies Echinocytes Acanthocytes (Spur) Rouleaux RBC Agglutinates Schistocytes RBC Morph Comment Sezary Cell PT (9.0-12.0) Seconds INR (0.9-1.1) Sodium (136-145) mmol/L Potassium (3.5-5.1) mmol/L Chloride (98-107) mmol/L Carbon Dioxide (21-32) mmol/L Anion Gap (3-11) BUN (7-18) mg/dl Creatinine (0.6-1.4) mg/dl Est Cr Clr Drug Dosing ml/min Est GFR ( Amer) Est GFR (Non-Af Amer) BUN/Creatinine Ratio (10-20) Glucose (70-99) mg/dl Lactate 2.6 H* (0.4-2.0) mmol/L Calcium (8.5-10.1) mg/dl Total Bilirubin (0.2-1) mg/dl AST (15-37) U/L ALT (12-78) U/L Alkaline Phosphatase (45-117) U/L Troponin I (0-0.045) ng/ml C-Reactive Protein (0-0.29) mg/dl Total Protein (6.4-8.2) gm/dl Albumin (3.4-5.0) gm/dl Globulin (2.5-4.0) gm/dl Albumin/Globulin Ratio (0.9-2) Lipase (73-393) U/L Procalcitonin Specimen Hemolysis Urine Color Yellow Urine Appearance Clear (Clear) Urine pH 5.0 (4.5-7.5) Ur Specific [place] 1.018 (1.000-1.030) Urine Protein 2+ H (Negative) Urine Glucose (UA) Negative (Negative) Urine Ketones Negative (Negative) Urine Blood 1+ H (Negative) Urine Nitrite Negative (Negative) Urine Bilirubin Negative (Negative) Urine Urobilinogen Negative (Negative) Ur Leukocyte Esterase Negative (Negative) Urine WBC (Auto) 1-5 (0-5) /hpf Urine RBC (Auto) 0-4 (0-4) /hpf U Hyaline Cast (Auto) 1-5 (0-5) /lpf U Epithel Cells (Auto) 0-5 (0-5) /lpf Urine Bacteria (Auto) Negative (Negative) Blood Type Antibody Screen Diagnostic Findings CT angio chest PE protocol CT DOSE: 644.72 mGycm HISTORY: 69 years-old Male with PE, sob, COVID, hypoxia. Acute shortness of breath and hypoxia. COVID Positive. TECHNIQUE: Multiple CTA images of the chest were obtained after the intravenous administration of 118 ml Optiray 320. Coronal and sagittal MIPS were obtained from the axial data set and were submitted for review. All measurements were obtained according to NASCET criteria. A dose lowering technique was utilized adhering to the principles of ALARA. COMPARISON: Chest radiograph of same day, CT abdomen and pelvis 05/05/2017 FINDINGS: CTA: Moderate cardiomegaly. Trace pericardial effusion. Mild coronary artery with moderate aortic annular calcifications. Mild mixed plaque of the thoracic aorta without aneurysm or dissection. There is patency of the imaged great vessels. Limited evaluation of the pulmonary arterial tree secondary to respiratory motion and contrast bolus timing. The segmental and subsegmental branches specifically are not well evaluated. No central pulmonary emboli identified. CT CHEST: There are a few small hypodense thyroid nodules noted. Enlarged paratracheal, subcarinal and hilar lymph nodes are present measuring up to 1.5 cm within the subcarinal distribution. Trace layering pleural effusions. No pneumothorax. Mild intralobular septal thickening is noted bilaterally with patchy multisegmental multilobar distribution of alveolar opacities. Central airways are patent. There is no acute process of the imaged upper abdomen. Unremarkable soft tissues. The bones appear intact. Bridging anterior endplate osteophytosis throughout the thoracic spine. IMPRESSION: 1. Limited exam as above with no pulmonary emboli identified. 2. Multisegmental multilobar distribution of alveolar opacities with areas of mild intralobular septal thickening suggests multifocal pneumonia. Superimposed pulmonary edema with be difficult to exclude. 3. Trace pleural effusions. 4. Mild mediastinal and hilar adenopathy, likely reactive. 5. Cardiomegaly. ACT 112: Negative or not required by law. The above report was generated using voice recognition software. It may contain grammatical, syntax or spelling errors. Electronically signed by: Casimiro Marcano M.D. 09/21/2020 10:39 PM Dictated: 09/21/202230Transcribed: 09/21/202230 ------ XR chest 1V portable HISTORY: 69 years-old Male sob, COVID acute shortness of breath with chest pain. COVID Positive. COMPARISON: Chest and rib radiographs 03/20/2020 TECHNIQUE: Portable AP view of the chest FINDINGS: Cardiac silhouette is enlarged, unchanged. Pulmonary vascular congestion. Reticular opacities are noted with patchy multifocal multilobar distribution of alveolar densities. Mild blunting of the costophrenic angles. No large pleural effusion or pneumothorax. Bones of the chest appear grossly intact. IMPRESSION: Extensive bilateral alveolar opacities suggest multifocal pneumonia. ACT 112: Negative or not required by law. The above report was generated using voice recognition software. It may contain grammatical, syntax or spelling errors. Electronically signed by: Casimiro Marcano M.D. 09/21/2020 9:09 PM Dictated: 09/21/202105Transcribed: 09/21/202105 Code Status & VTE Plan VTE Prophylaxis Plan VTE Prophylaxis will be ordered: Yes PG Care Time/CCT Total # of Minutes Spent Total Time Spent with Patient: Total time spent is greater than 50% in coordination of care (as documented) at patient's floor/unit and/or counseling patient: Coding Level of Care Code 23040 Initial Inpt Care Lvl 3 Diagnoses Pneumonia due to COVID-19 virus U07.1; J12.89 Acute respiratory failure with hypoxia J96.01 Hyponatremia E87.1 Vitamin D deficiency E55.9 Restrictive lung disease J98.4 GUS on CPAP G47.33; Z99.89 Gout M10.9 Chronicity: unspecified Gout etiology: unspecified cause Gout site: unspecified site BPH with obstruction/lower urinary tract symptoms N40.1; N13.8 Hypertension I10 Hypertension type: essential hypertension Hypothyroidism E03.9 Hypothyroidism type: unspecified Opioid dependence F11.20 Substance use status: uncomplicated Acid reflux K21.9 Esophagitis presence: esophagitis presence not specified (1) Opioid dependence Substance use status: uncomplicated Qualified Code(s): F11.20 - Opioid dependence, uncomplicated (2) Gout Chronicity: unspecified Gout etiology: unspecified cause Gout site: unspecified site Qualified Code(s): M10.9 - Gout, unspecified (3) Hypothyroidism Hypothyroidism type: unspecified Qualified Code(s): E03.9 - Hypothyroidism, unspecified (4) Acid reflux Esophagitis presence: esophagitis presence not specified Qualified Code(s): K21.9 - Gastro-esophageal reflux disease without esophagitis (5) Hypertension Hypertension type: essential hypertension Qualified Code(s): I10 - Essential (primary) hypertension
[2020-09-22] MEDS ORDERED: SODIUM CHLORIDE 0.9% 10ML FLUSH IV SCH (01:57)
[2020-09-22] MEDS ORDERED: guaiFENesin SUGAR FREE 100 MG/5 ML UDC PO PRN (01:57)
[2020-09-22] MEDS ORDERED: ALBUTEROL HFA 8 GM INHALER INH PRN (01:57)
[2020-09-22 03:01] LABS: Ferritin 528.7 ng/ml (8-388); Magnesium 1.8 mg/dl (1.8-2.4); Phosphorus 2.9 mg/dl (2.5-4.9)
[2020-09-22 03:06] LABS: D Dimer 1850 ug/L FEU (0-500)
[2020-09-22] MEDS: ENOXAPARIN INJ 40 MG/0.4 ML SYR SQ SCH ×2 (04:34→17:20)
[2020-09-22] MEDS: LEVOTHYROXINE SODIUM 25 MCG TABLET PO SCH (06:41)
[2020-09-22] MEDS ORDERED: PNEUMOCOCCAL Polysaccharide Vaccine 25mcg/0.5mL vial/Syr IM ONE (08:00)
[2020-09-22] MEDS: METOPROLOL TARTRATE 25 MG TAB PO SCH ×2 (09:07→22:23)
[2020-09-22] MEDS: DULoxetine HCL 60 MG CAP PO SCH (09:07)
[2020-09-22] MEDS: dexAMETHasone 6 MG in SYRINGE 0 ML IV SCH (09:07)
[2020-09-22] MEDS: CHOLECALCIFEROL 1,000 UNITS 25 MCG TAB PO SCH (09:08)
[2020-09-22] MEDS: MIRABEGRON ER 25 MG TAB PO SCH (09:08)
[2020-09-22] MEDS: FAMOTIDINE 20 MG in SYRINGE 3 ML IV SCH ×2 (09:08→22:25)
[2020-09-22] MEDS: allopurinoL 100 MG TAB PO SCH (09:08)
[2020-09-22] MEDS: ALFUZOSIN HCL 10 MG TAB PO SCH (09:08)
[2020-09-22] MEDS ORDERED: FUROSEMIDE 40 MG in SYRINGE 0 ML IV ONE (10:00)
[2020-09-22] MEDS: oxyCODONE/ACETAMINOPHEN 10-325 TAB PO PRN ×2 (10:28→22:36)
[2020-09-22] MEDS: PREGABALIN 100 MG CAP PO SCH ×3 (10:28→22:23)
--- NOTE | 2020-09-22 10:47 | Electrocardiogram Report ---
Test Reason : Blood Pressure : / mmHG Vent. Rate : 131 BPM Atrial Rate : 131 BPM P-R Int : 114 ms QRS Dur : 138 ms QT Int : 376 ms P-R-T Axes : 000 -03 049 degrees QTc Int : 555 ms Poor data quality, interpretation may be adversely affected Sinus tachycardia with Premature atrial complexes with Aberrant conduction Right bundle branch block Abnormal ECG Confirmed by Dada Brown ([id number]) on 09/22/2020 10:46:42 AM Referred By: REFERRED SELF Confirmed By:Butch Brown
[2020-09-22] MEDS ORDERED: FUROSEMIDE 10 MG/ML 10 ML VIAL IV ONE (11:00)
[2020-09-22] MEDS ORDERED: FUROSEMIDE 40 MG/4 ML VIAL IV ONE (11:02)
[2020-09-22] MEDS: XYZAL~ORDER AWAITING ACTION SCH ×2 (17:20→20:22)
[2020-09-22] MEDS: VESICARE~ORDER AWAITING ACTION SCH ×2 (17:20→20:22)
--- NOTE | 2020-09-22 19:24 | Communication Note ---
Date of Service: September 22, 2020 seen in f/u from early AM admission feeling better - can't really tell if just from supplemental O2 or from diuretics - but either way feeling better lungs very quiet but coarse throughout (faintly so -not great air entry) no conversational dyspnea or accessory muscle use covid pneumonia - agree too late for any of the (marginal) benefit that plasma or remdesivir would provide, decadron started, nothing appearing c/w bacterial overgrowth at this time, does have evidence of acute on chronic diastolic chf (low Na, high BNP...chest imaging agree w radiology impossible to discern) - gave lasix x1 and O2 requirements did decrease some. will follow day to day. lovenox bid for dvt proph
[2020-09-22] MEDS: rOPINIRole HCL 1 MG TABLET PO SCH (22:24)
[2020-09-23] MEDS: XYZAL~ORDER AWAITING ACTION SCH ×4 (00:04→23:52)
[2020-09-23] MEDS: VESICARE~ORDER AWAITING ACTION SCH ×3 (00:04→23:52)
[2020-09-23 06:07] LABS: Basophils # (auto) 0.01 K/uL (0-0.2); Basophils % (auto) 0.1 %; Hematocrit (blood only) 40.6 % (42-52); Hemoglobin 13.4 g/dL (14.0-18.0); Immature Granulocytes # (auto) 0.05 K/uL (0.00-0.02); Immature Granulocytes % (auto) 0.7 %; Lymphocytes % (auto) 6.8 %; Mean Corpuscular Hemoglobin 28.3 pg (25-34); Mean Corpuscular Volume 85.7 fL (80-100); Mean Platelet Volume 10.6 fL (7.4-10.4); Monocytes # (auto) 0.93 K/uL (0.11-0.59); Monocytes % (auto) 12.7 %; Neutrophils # (auto) 5.82 K/uL (1.4-6.5); Neutrophils % (auto) 79.7 %; Platelet Count 180 K/uL (130-400); RDW Coefficient of Variation 14.4 % (11.5-14.5); RDW Standard Deviation 45.6 fL (36.4-46.3); Red Blood Count 4.74 M/uL (4.7-6.1); White Blood Count 7.31 K/uL (4.8-10.8)
[2020-09-23] MEDS: ENOXAPARIN INJ 40 MG/0.4 ML SYR SQ SCH ×2 (06:49→17:03)
[2020-09-23] MEDS: LEVOTHYROXINE SODIUM 25 MCG TABLET PO SCH (06:49)
[2020-09-23 06:58] LABS: Albumin Level 2.6 gm/dl (3.4-5.0); BUN Creatinine Ratio 29.4 (10-20); Bilirubin Direct 0.3 mg/dl (0-0.2); Bilirubin,Total 0.5 mg/dl (0.2-1); Calcium 8.7 mg/dl (8.5-10.1); Creatinine Clr Calc Pharmacy 67.5 ml/min; Est GFR (African American) 69.4; Est GFR (Non-African American) 59.9; Potassium 4.1 mmol/L (3.5-5.1); Total Protein 6.8 gm/dl (6.4-8.2)
[2020-09-23] MEDS: FAMOTIDINE 20 MG in SYRINGE 3 ML IV SCH ×2 (08:33→23:52)
[2020-09-23] MEDS: dexAMETHasone 6 MG in SYRINGE 0 ML IV SCH (08:33)
[2020-09-23] MEDS: allopurinoL 100 MG TAB PO SCH (08:35)
[2020-09-23] MEDS: CHOLECALCIFEROL 1,000 UNITS 25 MCG TAB PO SCH (08:36)
[2020-09-23] MEDS: ALFUZOSIN HCL 10 MG TAB PO SCH (08:36)
[2020-09-23] MEDS: METOPROLOL TARTRATE 25 MG TAB PO SCH ×2 (08:36→20:36)
[2020-09-23] MEDS: DULoxetine HCL 60 MG CAP PO SCH (08:37)
[2020-09-23] MEDS: MIRABEGRON ER 25 MG TAB PO SCH (08:37)
[2020-09-23] MEDS: PREGABALIN 100 MG CAP PO SCH ×3 (09:02→20:44)
[2020-09-23] MEDS: oxyCODONE/ACETAMINOPHEN 10-325 TAB PO PRN ×2 (09:02→20:48)
[2020-09-23 11:32] LABS: Base Excess ABG -0.6 mEq/L (-9-1.8); HCO3 ABG 24 mmol/L (19-24); Oxygen Saturation ABG 95.3 % (90-95); PCO2 ABG 37 mmHg (35-46); PO2 ABG 74 mmHg (80-95); pH ABG 7.42 (7.35-7.45)
[2020-09-23 12:43] LABS: Allen Test Pos (Pos)
[2020-09-23] MEDS ORDERED: LORazepam 0.25 MG/0.5 ML VIAL IV STA (12:49)
[2020-09-23] MEDS ORDERED: OLANZapine 10 MG/2.1 ML SDV IM STA ×2 (13:35→17:47)
--- NOTE | 2020-09-23 15:26 | Hospitalist Progress Note ---
Date of Service September 23, 2020 Assessment & Plan (1) Pneumonia due to COVID-19 virus: -Patient had symptoms for 9-10 days prior to admission - he would most likely receive no clinical benefit from Remdesivir or convalescent plasma and therefore this was not administered -Dexamethasone 6mg IV daily -Albuterol HFA PRN -Supplemental O2 as needed to maintain oxygen saturation >92%. Patient may benefit from self-proning if body habitus allows. delirium making it somewhat more difficult to maintain O2 sats as he does not feel the degree of dyspnea "he should" for his degree of hypoxia, and then his confusion about what is going on makes it more difficult to explain the need for the O2 --> after consideration of options as well as discussion w - will give trial to low dose sedation w zyprexa (can also utilize haldol or ativan if needed - goal just being to affect enough calming that he leaves O2 on, not enough to truly sedate unless totally necessary). ICU aware of situation - but at this time he is stable on 15L - just needing to have him keep it on. (2) Acute respiratory failure with hypoxia: Secondary to Covid-19 PNA as well as initially an element of acute on chronic diastolic chf. now appears predominantly from covid (3) Acute metabolic encephalopathy: fortunately not due to hypercapnea. unfortunately does complicate care since he now has poor insight/understanding of his situation medically, and frequently is taking O2 off. see above - no good options but since he is at risk to himself w pulling off O2, trial of low dose zyprexa (can alternatively use haldol or low dose ativan if needed as well). as well as a colleague who took care of him before note that he frequently has had metabolic encephalopathy/delirium when in the hospital (4) Acute on chronic diastolic CHF (congestive heart failure): related to aortic stenosis lasix given yesterday. 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 follow for need for repeat diuretics - no clear indication at this time (5) Hyponatremia: was probably related to CHF - corrected after diuresis. follow periodically (6) Vitamin D deficiency: -Continue supplementation (7) Restrictive lung disease: fortunately no hypercapnea on ABG (8) GUS on CPAP: Chronic -CPAP qHS at [id number] -again fortunately no hypercapnea (9) Gout: Chronic. Stable. No acute flare at present -Continue Allopurinol (10) BPH with obstruction/lower urinary tract symptoms: Patinent with urinary incontinence. No evidence of UTI -Continue alfuzosin -Continue solifenacin (11) Hypertension: BP acceptable for situation. continue metoprolol and follow (12) Hypothyroidism: Chronic. Stable. Last TSH in 10/24 = 3.95 -Continue Synthroid 25mcg po daily (13) Opioid dependence: Patient with chronic pain and neuropathy -Continue Percocet 10/325 TID -Continue Lyrica 100mg po TID -Continue Duloxetine (obviously want to avoid precipitating withdrawal) (14) Acid reflux: Chronic. Stable -Pepcid 20mg IV BID - may have effect on disease severity in Covid-19 (15) DVT prophylaxis: lovenox (16) Discharge planning issues: still acutely ill - maintain on telemetry at this time. notes that she does not want rehab when he is ready to be discharged, but this will need to be determined as he progresses Admission and Anticipated Discharge Date Admission Date: September 22, 2020 Subjective confused today - denies complaints but also HPI and ROS of very questionable veracity. is aware that he's in the hospital but really doesn't seem to be aware of why. denies sob. nursing notes that he's been increasingly confused and has been frequently taking O2 off and leading to saturations dropping. updated - she notes that he frequently gets quite delirious when in the hospital. she is OK w using pharmacologic means to calm him if it is necessary to keep O2 on. Review of Systems Review of Systems: Unobtainable due to cognitive status Physical Exam Physical Exam: gen awake and pleasant but disoriented, nad. heent nc at mmm. lungs diminished throughout, diffusely coarse - very similar to yesterday. no accessory muscles good effort. no conversational dyspnea. does have oxymask @15L when i am in the room. ext no c/c, b/l equal woody/chronic feeling edema he notes is chronic, no calf tenderness. no focal neuro deficits. Results & Data Results & Data ([facility]) Vital Signs (Past 12 Hours) Vital Signs Temp Pulse Pulse Resp BP BP Pulse Ox 09/23/20 12:12 97.9 F 66 20 111/64 94 09/23/20 07:58 97.5 F L 79 20 107/64 88 L 09/23/20 06:40 67 09/23/20 04:04 98.1 F 69 22 122/56 L 92 PG Care Time/CCT Total # of Minutes Spent Total Time Spent with Patient: Total time spent is greater than 50% in coordination of care (as documented) at patient's floor/unit and/or counseling patient: Coding Level of Care Code 27295 Subseq Hosp Care Lvl 3 Diagnoses Pneumonia due to COVID-19 virus U07.1; J12.89 Acute respiratory failure with hypoxia J96.01 Acute metabolic encephalopathy G93.41 Acute on chronic diastolic CHF (congestive heart failure) I50.33 Hyponatremia E87.1 Vitamin D deficiency E55.9 Restrictive lung disease J98.4 GUS on CPAP G47.33; Z99.89 Gout M10.9 Gout site: unspecified site Gout etiology: unspecified cause Chronicity: unspecified BPH with obstruction/lower urinary tract symptoms N40.1; N13.8 Hypertension I10 Hypertension type: essential hypertension Hypothyroidism E03.9 Hypothyroidism type: unspecified Opioid dependence F11.20 Substance use status: uncomplicated Acid reflux K21.9 Esophagitis presence: esophagitis presence not specified DVT prophylaxis Z29.9 Discharge planning issues Z02.9 (1) Gout Gout site: unspecified site Gout etiology: unspecified cause Chronicity: unspecified Qualified Code(s): M10.9 - Gout, unspecified (2) Hypertension Hypertension type: essential hypertension Qualified Code(s): I10 - Essential (primary) hypertension (3) Hypothyroidism Hypothyroidism type: unspecified Qualified Code(s): E03.9 - Hypothyroidism, unspecified (4) Opioid dependence Substance use status: uncomplicated Qualified Code(s): F11.20 - Opioid dependence, uncomplicated (5) Acid reflux Esophagitis presence: esophagitis presence not specified Qualified Code(s): K21.9 - Gastro-esophageal reflux disease without esophagitis
[2020-09-23] MEDS ORDERED: OLANZapine 10 MG/2.1 ML SDV IM PRN ×2 (17:21→17:48)
[2020-09-23] MEDS ORDERED: LORazepam 0.5 MG/1 ML VIAL IV PRN (17:47)
[2020-09-23] MEDS: rOPINIRole HCL 1 MG TABLET PO SCH (20:37)
[2020-09-24] MEDS ORDERED: LORazepam 1 MG/2 ML VIAL IV STA (03:28)
[2020-09-24] MEDS ORDERED: FUROSEMIDE 40 MG in SYRINGE 0 ML IV ONE (03:43)
[2020-09-24] MEDS ORDERED: FUROSEMIDE 40 MG/4 ML VIAL IV ONE (03:45)
[2020-09-24] MEDS ORDERED: MoRPHine SULFATE 2 MG/ML CARP IV STA (03:51)
[2020-09-24] MEDS ORDERED: MoRPHine SULFATE 2 MG/ML CARP ONE (03:52)
[2020-09-24] MEDS ORDERED: LORazepam 2 MG/4 ML VIAL IV STA (04:04)
[2020-09-24] MEDS ORDERED: LORazepam 3 MG/6 ML VIAL IV PRN (04:05)
[2020-09-24] MEDS ORDERED: LORazepam 1 MG/2 ML VIAL IV PRN (04:05)
[2020-09-24] MEDS ORDERED: ATIVAN IV ALCOHOL WITHDRAWL IV PRN (04:05)
[2020-09-24] MEDS ORDERED: LORazepam 2 MG/4 ML VIAL IV PRN (04:05)
[2020-09-24] MEDS ORDERED: STAT IV Infusion **Titration per Protocol STA (04:17)
[2020-09-24] MEDS: DEXMEDETOMIDINE HCL 200 MCG in SODIUM CHLORIDE 0.9% 48 ML IV SCH ×4 (05:03→11:05)
[2020-09-24 05:20] LABS: iSTAT Allen Test Pass; iSTAT Art Bld Gas pCO2 Correct 36 mmHg (35-46); iSTAT Art Bld Gas pH Corrected 7.408 (7.35-7.45); iSTAT Arterial Blood Gas HCO3 22 meg/L (19-24); iSTAT Arterial Blood Gas pCO2 33 mmHg (35-46); iSTAT Arterial Blood Gas pH 7.44 (7.35-7.45); iSTAT Arterial Blood Gas pO2 59 mmHg (80-95); iSTAT Arterial Blood Gas pO2 C 67; iSTAT Carbon Dioxide 23 mmol/L (24-31); iSTAT FiO2 50 %; iSTAT Hematocrit 44 % (42-52); iSTAT Potassium 4.1 mmol/L (3.3-5.0); iSTAT Site R Radial; iSTAT Sodium 139 mmol/L (135-144)
[2020-09-24] MEDS: LEVOTHYROXINE SODIUM 25 MCG TABLET PO SCH (05:21)
[2020-09-24] MEDS: ENOXAPARIN INJ 40 MG/0.4 ML SYR SQ SCH ×2 (05:23→18:44)
[2020-09-24] MEDS ORDERED: ACETAMINOPHEN 1,000 MG/100 ML VIAL IV STA (05:27)
--- NOTE | 2020-09-24 06:02 | Critical Care Consultation ---
Date of Consultation September 24, 2020 Assessment & Plan (1) Acute respiratory failure with hypoxia: Reason Critically Ill: 69-year-old male with acute hypoxic respiratory failure due to Covid 19 pneumonia, confusion and delirium. Currently requiring treatment with BiPAP and sedation with Precedex drip . Neuro - Metabolic encephalopathymultiple contributing causes this patient currently infected with COVID-19 pneumonia, hypoxic, fevers, polypharmacy, and reported history of delirium on previous hospitalizations. -Due to worsening delirium he has been treated yesterday with Zyprexa and Ativan, however continues to have persistent delirium and removes oxygen equipment in the setting of hypoxic respiratory failure -BUN is unremarkable, will obtain ammonia level, CO2 within normal limits -Would hold narcotics for the time being -Patient previously admitted to daily use of alcohol with average 3 beers per day, exam more consistent with hospital delirium but will leave on as needed Ativan in addition to Precedex and adding daily thiamine -Adding Precedex as patient now requiring BiPAP, may attempt weaning once more medically stable but agitation has significantly improved following administration of Precedex Cardiac - History of diastolic heart failure with last echo in 2014, will repeat on this admission Repeating troponin HTNconvert MTP to IV EKG with sinus tach with frequent PVCs, right bundle branch block demonstrated on previous study. No ST elevation Normotensive, not requiring vasopressors at this time Continuous monitor on telemetry Respiratory - Acute hypoxic respiratory failurelikely secondary to COVID-19 pneumonia and cannot rule out contributing diastolic heart failure -Patient not candidate for remdesivir therapy as he was 10 days of symptoms on admission, undergoing treatment with IV dexamethasone currently on day 3 -Oxygen saturation improved with administration of BiPAP, assistance of Precedex as patient is delirious and has previously continued to remove medical equipment causing severe desaturations and respiratory distress -Chest x-ray improved following diuresis, will administer Lasix as needed -CTA from 09/21 - for PEs -Nebs as needed -Continuous monitoring on pulse ox GI - N.p.o. for now while on BiPAP and Precedex drip GERDcontinue famotidine RENAL/LYTES - Creatinine 1.2 at baseline, no prior significant electrolyte abnormalities Routine BMPs and replete electrolytes as indicated Hold on IV fluids for now as patient is currently undergoing diuresis - Foleystrict I's and O's ENDO - No history of diabetes, ICU hyperglycemic protocol Hypothyroidcontinue Synthroid HEME - History of anemia, H&H currently stable at this time and no indication for transfusion. Monitor CBCs ID - Patient is significantly febrile which may be secondary to COVID-19 pneumonia. No leukocytosis. Will repeat procalcitonin for rule out of secondary infection and consider antibiotic coverage if significantly elevated. UA unremarkable and blood cultures negative to date LINES/IV ACCESS - Peripheral IVs DVT PROPHYLAXIS - Lovenox, SCDs I have personally spent 45 minutes of critical care time in the direct management of this patient. This is a life/limb threatening event. This includes time spent evaluating patient, direct bedside care, chart review, placing orders, interpretation of diagnostic studies, discussion with consultants, patient, and family members, as well as other required patient management act ivities. This time is exclusive of all separately billable procedures, and teaching time and separate from and in addition to any other critical care service time. Thank you for allowing us to participate in the care of this patient. Please refer to my attending physician's documentation for any further recommendations. (2) Acute metabolic encephalopathy: (3) Acute on chronic diastolic CHF (congestive heart failure): (4) DVT prophylaxis: (5) Pneumonia due to COVID-19 virus: (6) Restrictive lung disease: (7) Gout: (8) Chronic pain syndrome: (9) Aortic valve sclerosis: (10) Anemia: (11) Hypertension: (12) Hypothyroidism: (13) Acid reflux: History of Present Illness Attending Physician: Humberto Ramirez DO History of Present Illness Mr. Camacho is a 69-year-old male with PMH of HTN, hypothyroid, BPH, anemia, neuropathy, and chronic pain who was admitted on 09/22 with hypoxia and COVID-19 pneumonia. Patient reported developing symptoms on 09/12 including fever, mild cough, and diarrhea and was confirmed positive by his PCP on 09/14. He presented to the emergency department on 09/21 with complaints of worsening fever, cough, shortness of breath. He was found to be febrile and hypoxic with oxygen saturation of 68% on room air and tachypneic. Patient was admitted to the Covid unit and was undergoing treatment with dexamethasone and was doing well with supplemental O2. However, patient has experienced difficulty with worsening delirium and continues to remove oxygen in which case is he becomes significantly hypoxic with worsening tachypnea and acute distress. I was notified by the hospitalist that the patient had again removed his oxygen and had desaturated into the 70s despite being placed on HFNC at 100%. He had previously been treated with Zyprexa and Ativan for delirium, and was diuresed with Lasix. Upon evaluation was felt that the patient may benefit from a Precedex drip and BiPAP as he was having a hard time maintaining his oxygen saturation was significantly tachypneic on high flow nasal cannula. Following BiPAP administration an additional dose of Lasix oxygen saturation did significantly improve, and he appears much more comfortable with the addition of Precedex drip. Chest x-ray appears improved from prior studies. Labs pending. Will upgrade patient to ICU status at this time for further management. Allergies Allergy/AdvReac Type Severity Reaction Status Date / Time tetracycline Allergy Unknown SORES IN Verified 09/21/20 22:09 MOUTH aspirin AdvReac Intermediate ulcer Verified 09/21/20 22:09 Home Medications Medication Instructions Recorded Confirmed Type cholecalciferol (vitamin D3) 100 4,000 units PO DAILY 03/09/19 09/21/20 History mcg (4,000 unit) capsule hydrocortisone 1 % topical cream 1 appln TOP TID PRN 03/09/19 09/21/20 History multivitamin 1 tab PO DAILY #30 tab 03/09/19 09/21/20 Rx vitamin B complex 1 cap PO DAILY #30 cap 03/09/19 09/21/20 Rx ferrous sulfate 325 mg (65 mg 325 mg PO DAILY 11/23/19 09/21/20 History iron) tablet allopurinol 100 mg tablet 100 mg PO DAILY #90 tab 12/06/19 09/21/20 Rx levocetirizine 5 mg tablet 5 mg PO DAILY #90 tab 12/07/19 09/21/20 Rx duloxetine 60 mg capsule,delayed 60 mg PO DAILY #90 cap 12/28/19 09/21/20 Rx release metoprolol tartrate 25 mg tablet 25 mg PO BID #180 tab 12/28/19 09/21/20 Rx alfuzosin 10 mg tablet,extended 10 mg PO DAILY #90 tab 05/08/20 09/21/20 Rx release 24 hr levothyroxine 25 mcg tablet 25 mcg PO DAILY #90 tab 06/18/20 09/21/20 Rx pregabalin 100 mg capsule 100 mg PO TID #270 cap 06/19/20 09/21/20 Rx lansoprazole 30 mg capsule,delayed 30 mg PO DAILY #90 cap 07/03/20 09/21/20 Rx release mirabegron 50 mg tablet,extended 50 mg PO DAILY #90 tab 07/30/20 09/21/20 Rx release 24 hr solifenacin 10 mg tablet 10 mg PO DAILY #90 tab 07/30/20 09/21/20 Rx oxycodone-acetaminophen 10 mg-325 1 tab PO TID PRN #90 tab 09/11/20 09/21/20 Rx mg tablet ropinirole 2 mg PO HS 09/21/20 09/21/20 History Patient History Medical History (Updated 09/23/20 @ 15:21 by Humberto Ramirez DO) Acute renal insufficiency Anemia Aortic valve sclerosis Arthritis ATN (acute tubular necrosis) BMI 40.0-44.9, adult BPH (benign prostatic hyperplasia) BPH with obstruction/lower urinary tract symptoms Cellulitis Chronic pain of both knees Chronic pain syndrome Erectile dysfunction Fever Foot drop, left Gait disturbance Gout Hepatic steatosis History of dysplastic nevus Hypokalemia Hypotension Irritable bowel syndrome (IBS) Leukocytosis Lower urinary tract symptoms (LUTS) Lumbar spinal stenosis Lumbar spine tumor MGUS (monoclonal gammopathy of unknown significance) Nephrolithiasis Opioid dependence GUS on CPAP Periodic limb movement sleep disorder Pneumonia Restrictive lung disease Sepsis Septic shock Septicemia due to group B Streptococcus SIRS (systemic inflammatory response syndrome) Vitamin D deficiency Surgical History History of arthroscopy of knee right knee History of back surgery remove spinal cord tumor, 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 History of cataract surgery History of hemicolectomy History of lithotripsy renal History of liver biopsy due to elevated LFTs, states that in evidence of damage from heavy metal exposure Family History Father Blood clots in biliary tract following procedure father from embolic stroke after episodes of DVT Mother Cardiac disorder Diabetes Hypertension Kidney stone Brother Kidney stone Social History Smoking Status: Never smoker Age Started Using Tobacco: 17; Age Quit Using Tobacco: 23; packs per day: 1; Years Smoked: 26; Number of Years Since Quit: 35; Second Hand Exposure: No; Hx Alcohol Use: Yes Alcohol type: beer Alcohol Intake Frequency Comment: 2-3 per day Hx Substance Use: No Preferred Language: Frisian Communication Ability: Effective Visual Impairment: Diminished Hearing Ability: Hard of Hearing Alum Operator Required: No Beliefs That Will Affect Care: None marital status: Current Living Situation: Spouse current occupational status: retired 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 Feels Safe at Home: Yes Childhood Exposure to Second-Hand Smoke: Yes caffeine: Yes Dental Care, Regularly: Yes Physical Activity Frequency: Does not Exercise Physical Activity Frequency Comment: DUE TO PHYSICAL CONDITION Seatbelt Use: always Sunscreen Use: Yes (SOMETIMES) Assistive Devices: Cane and Oxygen - Continuous Review of Systems Review of Systems: Unobtainable due to cognitive status Physical Exam Constitutional: + obese and + altered mental status Eyes: PERRL, conjunctivae normal, anicteric sclerae ENMT: external ear and nose normal, oropharynx normal Neck: trachea midline, no thyromegaly Respiratory: + uses accessory muscles, + cough and + tachypneic; no stridor Auscultation: + diminished lung sounds; no crackles and no wheezes Cardiovascular: Rate/Rhythm: regular rate and + tachycardic Heart Sounds: normal S1 and normal S2 Vessels: no JVD Extremities: no edema Gastrointestinal (Abdomen): normal bowel sounds, soft, nontender, no hepatosplenomegaly Skin: no rashes, warm and dry Neurologic: PERRL, EOMI, accommodation nl, no face palsy, no dysarthria moves all extremities and + confused Psychiatric: Orientation: oriented to person; + not oriented to place, + not oriented to time and + uncooperative Eye Contact: + poor eye contact Affect: + anxious affect Genitourinary: Indwelling Rodriguez catheter Results & Data Results & Data ([facility]) Vital Signs (Past 12 Hours) Vital Signs Temp Pulse Pulse Resp BP BP Pulse Ox 09/24/20 04:59 177/70 H 09/24/20 04:10 125 H 27 H 97 09/24/20 02:59 37.6 C H 107 H 34 H 201/112 H 87 L 09/24/20 00:00 75 09/23/20 23:41 36.7 C 91 H 24 155/81 H 90 09/23/20 20:34 37.0 C 87 22 176/95 H 94 09/23/20 17:47 67 L Coding Level of Care Code Critical Care 1st 30-74 mins Diagnoses Acute respiratory failure with hypoxia J96.01 Acute metabolic encephalopathy G93.41 Acute on chronic diastolic CHF (congestive heart failure) I50.33 DVT prophylaxis Z29.9 Pneumonia due to COVID-19 virus U07.1; J12.89 Restrictive lung disease J98.4 Gout M10.9 Chronicity: unspecified Gout etiology: unspecified cause Gout site: unspecified site Chronic pain syndrome G89.4 Aortic valve sclerosis I35.8 Anemia D64.9 Hypertension I10 Hypertension type: essential hypertension Hypothyroidism E03.9 Hypothyroidism type: unspecified Acid reflux K21.9 Esophagitis presence: esophagitis presence not specified (1) Gout Chronicity: unspecified Gout etiology: unspecified cause Gout site: unspecified site Qualified Code(s): M10.9 - Gout, unspecified (2) Hypothyroidism Hypothyroidism type: unspecified Qualified Code(s): E03.9 - Hypothyroidism, unspecified (3) Acid reflux Esophagitis presence: esophagitis presence not specified Qualified Code(s): K21.9 - Gastro-esophageal reflux disease without esophagitis (4) Hypertension Hypertension type: essential hypertension Qualified Code(s): I10 - Essential (primary) hypertension
[2020-09-24 06:05] LABS: Hematocrit (blood only) 42.2 % (42-52); Hemoglobin 14.3 g/dL (14.0-18.0); Mean Corpuscular Hemoglobin 29.3 pg (25-34); Mean Corpuscular Hgb Conc 33.9 g/dL (32-36); Mean Corpuscular Volume 86.5 fL (80-100); Mean Platelet Volume 10.9 fL (7.4-10.4); Platelet Count 203 K/uL (130-400); RDW Coefficient of Variation 14.6 % (11.5-14.5); RDW Standard Deviation 46.5 fL (36.4-46.3); Red Blood Count 4.88 M/uL (4.7-6.1); White Blood Count 9.72 K/uL (4.8-10.8)
[2020-09-24 06:26] LABS: Basophils # (auto) 0.01 K/uL (0-0.2); Basophils % (auto) 0.1 %; Immature Granulocytes # (auto) 0.14 K/uL (0.00-0.02); Immature Granulocytes % (auto) 1.4 %; Lymphocytes # (auto) 0.89 K/uL (1.2-3.4); Lymphocytes % (auto) 9.2 %; Monocytes # (auto) 0.51 K/uL (0.11-0.59); Monocytes % (auto) 5.2 %; Neutrophils # (auto) 8.17 K/uL (1.4-6.5); Neutrophils % (auto) 84.1 %
[2020-09-24 06:33] LABS: Albumin Level 2.9 gm/dl (3.4-5.0); BUN Creatinine Ratio 27.3 (10-20); Creatinine Clr Calc Pharmacy 57.4 ml/min; Est GFR (African American) 57.2; Est GFR (Non-African American) 49.3; Magnesium 2.3 mg/dl (1.8-2.4); Potassium 4.4 mmol/L (3.5-5.1)
[2020-09-24 06:41] LABS: Albumin Globulin Ratio 0.6 (0.9-2); Bilirubin,Total 0.8 mg/dl (0.2-1); Globulin 4.9 gm/dl (2.5-4.0); Total Protein 7.8 gm/dl (6.4-8.2); Troponin I 0.101 ng/ml (0-0.045)
[2020-09-24] MEDS: XYZAL~ORDER AWAITING ACTION SCH (07:44)
[2020-09-24] MEDS: VESICARE~ORDER AWAITING ACTION SCH (07:44)
[2020-09-24] MEDS: dexAMETHasone 6 MG in SYRINGE 0 ML IV SCH (07:45)
[2020-09-24] MEDS: THIAMINE HCL 100 MG in SYRINGE 9 ML IV SCH (08:00)
[2020-09-24] MEDS: CHOLECALCIFEROL 1,000 UNITS 25 MCG TAB PO SCH (08:00)
[2020-09-24] MEDS: DULoxetine HCL 60 MG CAP PO SCH (08:01)
[2020-09-24] MEDS: ALFUZOSIN HCL 10 MG TAB PO SCH (08:01)
[2020-09-24] MEDS: PREGABALIN 100 MG CAP PO SCH (08:01)
[2020-09-24] MEDS: allopurinoL 100 MG TAB PO SCH (08:01)
[2020-09-24] MEDS: MIRABEGRON ER 25 MG TAB PO SCH (08:01)
[2020-09-24] MEDS: FAMOTIDINE 20 MG in SYRINGE 3 ML IV SCH ×2 (08:03→19:56)
[2020-09-24] MEDS ORDERED: DEXMEDETOMIDINE HCL 400 MCG in SODIUM CHLORIDE 0.9% 96 ML IV SCH (08:15)
[2020-09-24] MEDS ORDERED: MIDAZOLAM HCL 5 MG/ML VIAL IV STA (08:16)
[2020-09-24] MEDS ORDERED: MIDAZOLAM HCL 1 MG/ML 2ML VIAL ONE (08:19)
[2020-09-24] MEDS ORDERED: ACETAMINOPHEN 1,000 MG/100 ML VIAL IV PRN (09:01)
[2020-09-24] MEDS: DEXMEDETOMIDINE HCL 400 MCG in 0.9 % SODIUM CHLORIDE 96 ML IV SCH ×4 (09:14→18:43)
--- NOTE | 2020-09-24 09:14 | XRay Report ---
XR chest 1V portable CLINICAL HISTORY: worsening respiratory failure COMPARISON STUDY: Chest radiograph and chest CT September 21, 2020. FINDINGS: No pneumothorax or pleural effusion is noted. Cardiomegaly is again noted. There is no evid ence for pulmonary edema. Interstitial thickening and bilateral opacities has slightly improved since exam September 21, 2020. IMPRESSION: Minimal improvement in extensive bilateral airspace opacities and interstitial thickenin g which suggest an infectious process. ACT 112: Negative or not required by law. Electronically signed by: Farhan Tavarez M.D. 09/24/2020 9:13 AM
[2020-09-24] MEDS ORDERED: LORazepam 2 MG/4 ML VIAL IV SCH (12:00)
--- NOTE | 2020-09-24 12:19 | Electrocardiogram Report ---
Test Reason : Blood Pressure : / mmHG Vent. Rate : 106 BPM Atrial Rate : 106 BPM P-R Int : 168 ms QRS Dur : 136 ms QT Int : 320 ms P-R-T Axes : 043 -07 001 degrees QTc Int : 425 ms Poor data quality, interpretation may be adversely affected Sinus tachycardia with frequent Premature ventricular complexes in a pattern of bigeminy Right bundle branch block Abnormal ECG When compared with ECG of 21-SEP-2020 20:33, Premature ventricular complexes are now Present Atrial flutter with 2 to 1 block is no longer Present Confirmed by Ancelmo Shah ([id number]) on 09/24/2020 12:18:58 PM Referred By: REFERRED SELF Confirmed By:Ancelmo Shah
--- NOTE | 2020-09-24 13:13 | Critical Care Progress Note ---
Date of Service September 24, 2020 Assessment & Plan (1) Acute metabolic encephalopathy: Reason Critically Ill: 69-year-old male with acute hypoxic respiratory failure due to Covid 19 pneumonia, confusion and delirium. Currently requiring treatment with BiPAP and sedation with Precedex drip . Neuro - Metabolic encephalopathymultiple contributing causes this patient currently infected with COVID-19 pneumonia, hypoxic, fevers, polypharmacy, and reported history of delirium on previous hospitalizations. -Due to worsening delirium he has been treated yesterday with Zyprexa and Ativan, however continues to have persistent delirium and removes oxygen equipment in the setting of hypoxic respiratory failure -BUN is unremarkable, ammonia within normal limit, CO2 within normal limits -Patient is drinking alcohol on a daily basis 3 beers a day. DTs could also be playing a role on top of COVID-19 delirium Continue with Precedex. If there is any clinical deterioration in respiratory status will intubate. Patient does have history of tracheostomy in the past. Chronic pain and neuropathy On Percocet 10/325 3 times daily as well as Lyrica 100 mg 3 times daily This might be one of the reasons the patient has high tolerance to negatives Cardiac - History of diastolic heart failure with last echo in 2014 Type II [facility] --> monitor troponin, no ST-T wave changes old right bundle branch block HTNcontinue with blood pressure medication Respiratory - Acute hypoxic respiratory failure likely secondary to COVID-19 pneumonia and component of diastolic CHF (BNP 7563 on presentation) -Patient not candidate for remdesivir therapy as he was 10 days of symptoms on admission, symptoms started 09/12/20, undergoing treatment with dexamethasone for total of 10 days -Oxygen saturation improved with administration of BiPAP, assistance of Precedex as patient is delirious and has previously continued to remove medical equipment causing severe desaturations and respiratory distress -CTA from 09/21 negative for pulmonary embolism -Keep O2 saturation 90-92% History of GUS On CPAP 11 cmH2O at home GI - N.p.o. for now while on BiPAP and Precedex drip GERDcontinue famotidine RENAL/LYTES - Creatinine 1.2 at baseline Continue with monitoring BUNs/creatinine Replete electrolytes as per ICU protocol - Foleystrict I's and O's ENDO - No history of diabetes, ICU hyperglycemic protocol Hypothyroidcontinue Synthroid when able HEME - History of anemia, H&H currently stable at this time and no indication for transfusion. Monitor CBCs ID - Patient is significantly febrile which may be secondary to COVID-19 pneumonia. No leukocytosis. Will repeat procalcitonin for rule out of secondary infection and consider antibiotic coverage if significantly elevated. UA unremarkable and blood cultures negative to date --Prophylaxis VTE: Lovenox 40 mg twice daily GI: Pepcid Lines: Peripheral Diet: N.p.o. Plan: In/out: -1.4 L, urine output 1.9 L ABG/ 7.44 33/59 15/8 BiPAP Patient's creatinine has gone up a little bit to 1.4. I would hold Lasix today. Resume Lasix tomorrow. Keep the patient negative balance Patient was given 4 mg of midazolam to which he responded significantly well. Do think DTs is playing a role. Palpable order of standing 2 mg every 6 hours along with as needed midazolam. Continue with Precedex for the time being. was called on [phone] updated regarding the current status of the patient. I have personally spent additional 31 minutes of critical care time in the direct management of this patient. This is a life/limb threatening event. This includes time spent evaluating patient, direct bedside care, chart review, placing orders, interpretation of diagnostic studies, discussion with consultants, patient, and family members, as well as other required patient management activities. This time is exclusive of all separately billable procedures, and teaching time and separate from and in addition to any other critical care service time. Please note the above document was generated using voice recognition software. It may contain grammatical, syntax or spelling errors. (2) Acute on chronic diastolic CHF (congestive heart failure): (3) Acute respiratory failure with hypoxia: (4) Pneumonia due to COVID-19 virus: (5) GUS on CPAP: Admission and Anticipated Discharge Date Admission Date: September 22, 2020 Subjective Patient seen and examined at bedside. On Precedex of 1.3 at the time of examination. Patient has also gotten 4 of midazolam prior to me seeing him He was comfortable saturating 92- 93% breathing in the low 20s. Unfortunately he was not following any commands. He has been febrile. T-max 39.6 Diuresed well with Lasix. Backup respiratory rate was increased to 20. Review of Systems Review of Systems: All systems reviewed & are unremarkable except as noted in Subjective and Unobtainable due to mental health condition Physical Exam Physical Exam: Constitutional: No acute distress HEENT: PERRLA, previous tracheostomy scar Respiratory system: Decreased air entry bilaterally, no wheeze, no rhonchi, positive crackles bilaterally CVS: S1-S2 positive, no murmurs or gallops Abdomen: Soft, nontender, nondistended, positive bowel sounds x4 Extremities: +2 pulses bilaterally radialis/ dorsalis pedis, no cyanosis, no edema Neuro: Sedated, RASS -1 Psych: Unable to assess G/U: Positive Rodriguez Skin: no rashes, warm and dry Lymphatic: no cervical or axillary lymphadenopathy Results & Data Results & Data ([facility]) Vital Signs (Past 12 Hours) Vital Signs Temp Pulse Pulse Resp BP BP BP 09/24/20 11:35 71 23 09/24/20 08:00 90 09/24/20 07:16 97 H 38 H 09/24/20 06:30 39.6 C H 88 24 110/69 09/24/20 06:00 39.7 C H 92 H 18 120/47 L 09/24/20 05:30 39.7 C H 98 H 26 H 161/75 H 09/24/20 05:15 119 H 32 H 09/24/20 04:59 177/70 H 09/24/20 04:10 125 H 27 H 09/24/20 02:59 37.6 C H 107 H 34 H 201/112 H Pulse Ox 09/24/20 11:35 94 09/24/20 08:00 09/24/20 07:16 93 09/24/20 06:30 95 09/24/20 06:00 93 09/24/20 05:30 95 09/24/20 05:15 94 09/24/20 04:59 09/24/20 04:10 97 09/24/20 02:59 87 L 09/24/20 05:43 09/24/20 04:57 Coding Level of Care Code Critical Care ea addt'l 30 min Diagnoses Acute metabolic encephalopathy G93.41 Acute on chronic diastolic CHF (congestive heart failure) I50.33 Acute respiratory failure with hypoxia J96.01 Pneumonia due to COVID-19 virus U07.1; J12.89 GUS on CPAP G47.33; Z99.89 Time Spent (min) 31
[2020-09-24] MEDS ORDERED: ENOXAPARIN INJ 40 MG/0.4 ML SYR SQ SCH (13:15)
[2020-09-24] MEDS: METOPROLOL TARTRATE 1 MG/ML VIAL IV SCH ×2 (15:45→18:57)
--- NOTE | 2020-09-24 16:22 | Hospitalist Progress Note ---
Date of Service September 24, 2020 Assessment & Plan (1) Pneumonia due to COVID-19 virus: -Dexamethasone 6mg IV daily, day 3 no Remdesivir or plasma as he presented 9 days into illness -Albuterol HFA PRN with acute hypoxic respiratory failure, PaO2 is 59 treating with BIPAP, tolerating well, 15/8, RR 20, FiO2 down to 40% using Precedex for sedation (2) Acute respiratory failure with hypoxia: Secondary to Covid-19 PNA, stable today on BIPAP, try to wean as tolerated look for mental status to improve (3) Acute metabolic encephalopathy: fortunately not due to hypercapnia has a history of delirium when hospitalized he drinks at least 3 beers a day. maybe more, so possible that DT's playing a role he is calm today on Precedex drip, Valium PRN for sedation will need to reassess mental status when we wean back sedation (4) Acute on chronic diastolic CHF (congestive heart failure): related to aortic stenosis lasix given 09/22. clinically volume status hard to process chemist but appears euvolemic at bedside. follow for need for repeat diuretics - no clear indication at this time (5) Hyponatremia: was probably related to CHF - corrected after diuresis. follow periodically (6) Vitamin D deficiency: -Continue supplementation (7) Restrictive lung disease: fortunately no hypercapnea on ABG (8) GUS on CPAP: Chronic -CPAP qHS at [id number] -again fortunately no hypercapnea (9) Gout: Chronic. Stable. No acute flare at present -Continue Allopurinol (10) BPH with obstruction/lower urinary tract symptoms: Patinent with urinary incontinence. No evidence of UTI -Continue alfuzosin -Continue solifenacin (11) Hypertension: BP acceptable for situation. continue metoprolol and follow (12) Hypothyroidism: Chronic. Stable. Last TSH in 10/24 = 3.95 -Continue Synthroid 25mcg po daily (13) Opioid dependence: Patient with chronic pain and neuropathy -Continue Percocet 10/325 TID -Continue Lyrica 100mg po TID -Continue Duloxetine (obviously want to avoid precipitating withdrawal) (14) Acid reflux: Chronic. Stable -Pepcid 20mg IV BID - may have effect on disease severity in Covid-19 (15) DVT prophylaxis: lovenox (16) Discharge planning issues: still acutely ill - moved to ICU. notes that she does not want rehab when he is ready to be discharged, but this will need to be determined as he progresses Admission and Anticipated Discharge Date Admission Date: September 22, 2020 Subjective patient transferred to ICU last night stabilized with Precedex and using Valium PRN for possible DT's as he drinks 3 beers a day tolerating the BIPAP well, no distress at all reviewed chart, reviewed labs CBC normal, ABG with evidence of respiratory alkalosis, PaO2 59, CO2 33 Cr up slightly at 1.4, electrolytes stable Review of Systems Review of Systems: Unobtainable due to cognitive status Physical Exam Constitutional: well developed, + ill appearing and + morbidly obese; no acute distress Neck: trachea midline and + thick neck Respiratory: + labored breathing and + tachypneic; no respiratory distress Auscultation: lungs clear to auscultation bilaterally Cardiovascular: Rate/Rhythm: regular rhythm and + bradycardic Heart Sounds: normal S1 and normal S2; no murmur Extremities: normal capillary refill; no edema Gastrointestinal (Abdomen): normal bowel sounds, soft, nontender, no hepatosplenomegaly Musculoskeletal: no cyanosis or clubbing, extremities motor strength 5/5 Skin: no rashes, warm and dry Neurologic: CN's II-XI intact bilaterally and + obtunded; no focal motor deficits Psychiatric: Orientation: + not alert Lymphatic: no cervical or axillary lymphadenopathy Results & Data Results & Data ([facility]) Vital Signs (Past 12 Hours) Vital Signs Temp Pulse Resp BP BP Pulse Ox 09/24/20 15:45 58 L 09/24/20 15:28 60 24 95 09/24/20 15:00 36.9 C 60 168/93 H 95 09/24/20 14:00 37.1 C 60 183/79 H 95 09/24/20 13:00 37.2 C 66 11 L 152/72 H 93 09/24/20 12:00 37.4 C 65 21 167/86 H 94 09/24/20 11:35 71 23 94 09/24/20 11:00 37.6 C H 67 23 170/81 H 94 09/24/20 10:00 37.8 C H 68 21 151/84 H 92 09/24/20 09:01 38.3 C H 71 24 123/64 92 09/24/20 08:00 39.0 C H 77 25 H 110/61 96 09/24/20 07:16 97 H 38 H 93 09/24/20 07:00 39.5 C H 88 22 131/52 L 93 09/24/20 06:30 39.6 C H 88 24 110/69 95 09/24/20 06:00 39.7 C H 92 H 18 120/47 L 93 09/24/20 05:30 39.7 C H 98 H 26 H 161/75 H 95 09/24/20 05:15 119 H 32 H 94 09/24/20 04:59 177/70 H Laboratory Results Laboratory Results - last 24 hr 09/24/20 09/24/20 09/24/20 04:57 05:05 05:43 WBC 9.72 RBC 4.88 Hgb 14.3 POC Hgb 15.0 Hct 42.2 POC Hct 44 MCV 86.5 MCH 29.3 MCHC 33.9 RDW Std Deviation 46.5 H RDW Coeff of Bisi 14.6 H Plt Count 203 MPV 10.9 H Immature Gran % (Auto) 1.4 Neut % (Auto) 84.1 Lymph % (Auto) 9.2 [place] % (Auto) 5.2 Eos % (Auto) 0.0 Baso % (Auto) 0.1 Neut # (Auto) 8.17 H Lymph # (Auto) 0.89 L [place] # (Auto) 0.51 Eos # (Auto) 0.00 Baso # (Auto) 0.01 Immature Gran # (Auto) 0.14 H Sample Site R Radial POC pH 7.44 POC pCO2 33 L POC pO2 59 L POC HCO3 22 POC Total CO2 23 L POC Base Excess -2.0 ABG pH (Temp Correct) 7.408 ABG pCO2 (Temp Corrct 36 POC ABG pO2 at Pt Temp 67 POC ABG O2 Sat 91.0 Jean Claude Test Pass O2 Delivery Device BIPAP POC O2 Rate 16 POC FiO2 50 IPAP 15 POC Sodium 139 Sodium 138 POC Potassium 4.1 Potassium 4.4 Chloride 106 Carbon Dioxide 25 Anion Gap 7.0 BUN 39 H Creatinine 1.42 H Est Cr Clr Drug Dosing 57.4 Est GFR ( Amer) 57.2 Est GFR (Non-Af Amer) 49.3 BUN/Creatinine Ratio 27.3 H Glucose 93 POC Glucose Calcium 9.0 Magnesium 2.3 Total Bilirubin 0.8 AST 60 H ALT 39 Alkaline Phosphatase 125 H Ammonia Troponin I 0.101 H* NT-Pro-B Natriuret Pep 5138 H Total Protein 7.8 Albumin 2.9 L Globulin 4.9 H Albumin/Globulin Ratio 0.6 L Procalcitonin 09/24/20 09/24/20 09/24/20 05:43 07:11 09:56 WBC RBC Hgb POC Hgb Hct POC Hct MCV MCH MCHC RDW Std Deviation RDW Coeff of Bisi Plt Count MPV Immature Gran % (Auto) Neut % (Auto) Lymph % (Auto) [place] % (Auto) Eos % (Auto) Baso % (Auto) Neut # (Auto) Lymph # (Auto) [place] # (Auto) Eos # (Auto) Baso # (Auto) Immature Gran # (Auto) Sample Site POC pH POC pCO2 POC pO2 POC HCO3 POC Total CO2 POC Base Excess ABG pH (Temp Correct) ABG pCO2 (Temp Corrct POC ABG pO2 at Pt Temp POC ABG O2 Sat [place] Test O2 Delivery Device POC O2 Rate POC FiO2 IPAP POC Sodium Sodium POC Potassium Potassium Chloride Carbon Dioxide Anion Gap BUN Creatinine Est Cr Clr Drug Dosing Est GFR ( Amer) Est GFR (Non-Af Amer) BUN/Creatinine Ratio Glucose POC Glucose Calcium Magnesium Total Bilirubin AST ALT Alkaline Phosphatase Ammonia < 10.0 L Troponin I 0.090 H* NT-Pro-B Natriuret Pep Total Protein Albumin Globulin Albumin/Globulin Ratio Procalcitonin 0.14 09/24/20 11:50 WBC RBC Hgb POC Hgb Hct POC Hct MCV MCH MCHC RDW Std Deviation RDW Coeff of Bisi Plt Count MPV Immature Gran % (Auto) Neut % (Auto) Lymph % (Auto) [place] % (Auto) Eos % (Auto) Baso % (Auto) Neut # (Auto) Lymph # (Auto) [place] # (Auto) Eos # (Auto) Baso # (Auto) Immature Gran # (Auto) Sample Site POC pH POC pCO2 POC pO2 POC HCO3 POC Total CO2 POC Base Excess ABG pH (Temp Correct) ABG pCO2 (Temp Corrct POC ABG pO2 at Pt Temp POC ABG O2 Sat [place] Test O2 Delivery Device POC O2 Rate POC FiO2 IPAP POC Sodium Sodium POC Potassium Potassium Chloride Carbon Dioxide Anion Gap BUN Creatinine Est Cr Clr Drug Dosing Est GFR ( Amer) Est GFR (Non-Af Amer) BUN/Creatinine Ratio Glucose POC Glucose 160 H Calcium Magnesium Total Bilirubin AST ALT Alkaline Phosphatase Ammonia Troponin I NT-Pro-B Natriuret Pep Total Protein Albumin Globulin Albumin/Globulin Ratio Procalcitonin Medications Administered Current Inpatient Medications Albuterol (Albuterol Hfa 8 Gm Inhaler) 2 puffs INH Q4H PRN PRN Reason: Shortness Of Breath Stop: 10/22/20 01:56 Enoxaparin Sodium (Enoxaparin Inj 40 Mg/0.4 Ml Syr) 40 mg SQ BID@0600,1800 [facility] Stop: 10/22/20 02:29 Last Admin: 09/24/20 05:23 Dose: 40 mg Documented by: Guaifenesin (Guaifenesin Sugar Free 100 Mg/5 Ml Udc) 100 mg PO Q6H PRN PRN Reason: Cough Stop: 10/22/20 01:56 Dexamethasone 6 mg/ Syringe 1.5 mls @ 1 mls/min IV DAILY [facility] Stop: 10/02/20 08:59 Last Admin: 09/24/20 07:45 Dose: 1 mls/min Documented by: Famotidine 20 mg/ Syringe 5 mls @ 2.5 mls/min IV BID [facility] Stop: 10/22/20 08:59 Last Admin: 09/24/20 08:03 Dose: 2.5 mls/min Documented by: Thiamine HCl 100 mg/ Syringe 10 mls @ 2 mls/min IV QAM [facility] Stop: 10/24/20 08:59 Last Admin: 09/24/20 08:00 Dose: 2 mls/min Documented by: Dexmedetomidine HCl 400 mcg/ (Sodium Chloride) 100 mls @ 35.945 mls/hr IV .Q2H47M [facility]; Protocol Stop: 09/28/20 08:14 Last Admin: 09/24/20 15:45 Dose: 1.3 mcg/kg/hr, 35.9 mls/hr Documented by: Acetaminophen (Ofirmev) 1,000 mg in 100 mls @ 400 mls/hr IV Q8H PRN PRN Reason: Fever or headache Stop: 09/27/20 09:00 Lorazepam (Ativan) 2 mg in 4 mls @ 4 mls/min IV Q6 [facility] Stop: 10/24/20 11:59 Last Admin: 12/21/20 11:38 Dose: 4 mls/min Documented by: Metoprolol Tartrate (Metoprolol Tartrate 1 Mg/Ml Vial) 5 mg IV Q6 MATHIEU Stop: 10/24/20 11:59 Last Admin: 09/24/20 15:45 Dose: Not Given Documented by: Midazolam HCl (Midazolam Hcl 1 Mg/Ml 2ml Vial) 4 mg IV Q2H PRN PRN Reason: Agitation Stop: 10/24/20 08:55 PG Care Time/CCT Total # of Minutes Spent Total Time Spent with Patient: Total time spent is greater than 50% in coordination of care (as documented) at patient's floor/unit and/or counseling patient: Coding Level of Care Code 74570 Subseq Hosp Care Lvl 3 Diagnoses Pneumonia due to COVID-19 virus U07.1; J12.89 Acute respiratory failure with hypoxia J96.01 Acute metabolic encephalopathy G93.41 Acute on chronic diastolic CHF (congestive heart failure) I50.33 Hyponatremia E87.1 Vitamin D deficiency E55.9 Restrictive lung disease J98.4 GUS on CPAP G47.33; Z99.89 Gout M10.9 Chronicity: unspecified Gout etiology: unspecified cause Gout site: unspecified site BPH with obstruction/lower urinary tract symptoms N40.1; N13.8 Hypertension I10 Hypertension type: essential hypertension Hypothyroidism E03.9 Hypothyroidism type: unspecified Opioid dependence F11.20 Substance use status: uncomplicated Acid reflux K21.9 Esophagitis presence: esophagitis presence not specified DVT prophylaxis Z29.9 Discharge planning issues Z02.9 (1) Opioid dependence Substance use status: uncomplicated Qualified Code(s): F11.20 - Opioid dependence, uncomplicated (2) Gout Chronicity: unspecified Gout etiology: unspecified cause Gout site: unspecified site Qualified Code(s): M10.9 - Gout, unspecified (3) Hypothyroidism Hypothyroidism type: unspecified Qualified Code(s): E03.9 - Hypothyroidism, unspecified (4) Acid reflux Esophagitis presence: esophagitis presence not specified Qualified Code(s): K21.9 - Gastro-esophageal reflux disease without esophagitis (5) Hypertension Hypertension type: essential hypertension Qualified Code(s): I10 - Essential (primary) hypertension
[2020-09-24] MEDS: MIDAZOLAM HCL 1 MG/ML 2ML VIAL IV PRN ×2 (19:56→22:03)
[2020-09-24] MEDS: hydrALAZINE HCL 20 MG/ML VIAL IV PRN (19:59)
[2020-09-24] MEDS: LORazepam 2 MG/4 ML VIAL IV SCH (22:03)
[2020-09-25] MEDS: DEXMEDETOMIDINE HCL 400 MCG in 0.9 % SODIUM CHLORIDE 96 ML IV SCH ×14 (00:09→19:14)
[2020-09-25] MEDS: MIDAZOLAM HCL 1 MG/ML 2ML VIAL IV PRN ×5 (00:09→15:40)
[2020-09-25] MEDS: METOPROLOL TARTRATE 1 MG/ML VIAL IV SCH ×5 (00:10→19:58)
[2020-09-25] MEDS: hydrALAZINE HCL 20 MG/ML VIAL IV PRN ×2 (01:08→14:43)
[2020-09-25] MEDS: ENOXAPARIN INJ 40 MG/0.4 ML SYR SQ SCH ×2 (04:56→19:17)
[2020-09-25] MEDS: LORazepam 2 MG/4 ML VIAL IV SCH ×3 (04:57→21:00)
[2020-09-25 08:01] LABS: Hemoglobin 14.2 g/dL (14.0-18.0); Mean Corpuscular Hemoglobin 28.5 pg (25-34); Mean Corpuscular Volume 86.3 fL (80-100); Mean Platelet Volume 10.6 fL (7.4-10.4); Platelet Count 171 K/uL (130-400); RDW Coefficient of Variation 14.6 % (11.5-14.5); RDW Standard Deviation 46.4 fL (36.4-46.3); Red Blood Count 4.98 M/uL (4.7-6.1); White Blood Count 7.92 K/uL (4.8-10.8)
[2020-09-25 08:26] LABS: ALC (manual) 0.55 K/uL (1.2-3.4); ANC (manual) 6.74 K/uL (1.4-6.5); Lymphocytes # (manual) 0.55 K/uL (1.2-3.4); Monocytes # (manual) 0.48 K/uL (0.11-0.59); Monocytes % (manual) 6.1 %; Myelocytes # (manual) 0.14 K/uL (0-0); Myelocytes % (manual) 1.8 %; Neutrophils # (manual) 6.74 K/uL (1.4-6.5); Neutrophils % (manual) 85.1 %
[2020-09-25 08:32] LABS: Albumin Level 2.4 gm/dl (3.4-5.0); BUN Creatinine Ratio 36.2 (10-20); Calcium 9.1 mg/dl (8.5-10.1); Creatinine Clr Calc Pharmacy 78.1 ml/min; Est GFR (African American) 83.3; Est GFR (Non-African American) 71.9; Magnesium 2.1 mg/dl (1.8-2.4)
[2020-09-25 08:35] LABS: Albumin Globulin Ratio 0.5 (0.9-2); Bilirubin,Total 0.9 mg/dl (0.2-1); Globulin 4.7 gm/dl (2.5-4.0); Phosphorus 2.6 mg/dl (2.5-4.9); Total Protein 7.1 gm/dl (6.4-8.2)
[2020-09-25] MEDS ORDERED: FUROSEMIDE 20 MG in SYRINGE 0 ML IV SCH (09:00)
[2020-09-25] MEDS: FAMOTIDINE 20 MG in SYRINGE 3 ML IV SCH ×2 (09:19→20:41)
[2020-09-25] MEDS: THIAMINE HCL 100 MG in SYRINGE 9 ML IV SCH (09:20)
[2020-09-25] MEDS: dexAMETHasone 6 MG in SYRINGE 0 ML IV SCH (09:20)
[2020-09-25] MEDS ORDERED: MoRPHine SULFATE 2 MG/ML CARP ONE (09:31)
[2020-09-25] MEDS: MoRPHine SULFATE 2 MG/ML CARP IV PRN ×3 (09:37→15:49)
--- NOTE | 2020-09-25 09:53 | Hospitalist Progress Note ---
Date of Service September 25, 2020 Assessment & Plan (1) Pneumonia due to COVID-19 virus: -Dexamethasone 6mg IV daily, day 4 no Remdesivir or plasma as he presented 9 days into illness -Albuterol HFA PRN with acute hypoxic respiratory failure, PaO2 is 59 on 09/24 treated with BIPAP, tolerated well initially now intubated and ventilatedddddddddddddddddddddddddddddddddddddddddddddddddddddddddddddd (2) Acute respiratory failure with hypoxia: Secondary to Covid-19 PNA, stable with BIPAP on 09/24 however, he deteriorated, required intubation on 09/25 (3) Acute metabolic encephalopathy: fortunately not due to hypercapnia has a history of delirium when hospitalized he drinks at least 3 beers a day. maybe more, so possible that DT's playing a role he is calm today on Precedex drip, Versed and Fentanyl will need to reassess mental status when we wean back sedation (4) Acute on chronic diastolic CHF (congestive heart failure): related to aortic stenosis lasix given 09/22. 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 follow for need for repeat diuretics - no clear indication at this time (5) Hyponatremia: was probably related to CHF - corrected after diuresis. follow periodically (6) Vitamin D deficiency: -Continue supplementation (7) Restrictive lung disease: fortunately no hypercapnea on ABG (8) GUS on CPAP: Chronic -again fortunately no hypercapnea (9) Gout: Chronic. Stable. No acute flare at present -Continue Allopurinol (10) BPH with obstruction/lower urinary tract symptoms: Patinent with urinary incontinence. No evidence of UTI -Continue alfuzosin -Continue solifenacin (11) Hypertension: BP acceptable for situation. continue metoprolol and follow (12) Hypothyroidism: Chronic. Stable. Last TSH in 10/24 = 3.95 -Continue Synthroid 25mcg po daily (13) Opioid dependence: Patient with chronic pain and neuropathy -Continue Percocet 10/325 TID -Continue Lyrica 100mg po TID -Continue Duloxetine (obviously want to avoid precipitating withdrawal) giving Morphine to prevent further withdrawal symptoms (14) Acid reflux: Chronic. Stable -Pepcid 20mg IV BID - may have effect on disease severity in Covid-19 (15) DVT prophylaxis: lovenox (16) Discharge planning issues: still acutely ill - moved to ICU. Admission and Anticipated Discharge Date Admission Date: September 22, 2020 Subjective patient sedated on BIPAP with combination of Precedex, Ativan, Valium labs reviewed today, CBC and BMP normal he is only requiring 40% FiO2 on BIPAP cannot answer ROS at this time patient deteriorated later in the afternoon, required intubation by Dr. Henry on Precedex, Versed, Fentanyl Review of Systems 2 Review of Systems: Unobtainable due to cognitive status and Unobtainable due to reduced consciousness Physical Exam Constitutional: well developed, + ill appearing, + morbidly obese and + mechanically ventilated; no acute distress Neck: trachea midline and + thick neck Respiratory: + tachypneic and symmetric chest movement (on ventilator) Auscultation: lungs clear to auscultation bilaterally Cardiovascular: Rate/Rhythm: regular rhythm and + bradycardic Heart Sounds: normal S1 and normal S2; no murmur Extremities: normal capillary refill; no edema Gastrointestinal (Abdomen): normal bowel sounds, soft, nontender, no hepatosplenomegaly Musculoskeletal: no cyanosis or clubbing, extremities motor strength 5/5 Skin: no rashes, warm and dry Neurologic: CN's II-XI intact bilaterally and + obtunded; no focal motor deficits Psychiatric: Orientation: + not alert Lymphatic: no cervical or axillary lymphadenopathy Results & Data Results & Data ([facility]) Vital Signs (Past 12 Hours) Vital Signs Temp Pulse Pulse Resp BP BP Pulse Ox 09/25/20 09:00 36.4 C L 68 23 209/86 H 91 09/25/20 08:00 36.2 C L 66 25 H 196/84 H 94 09/25/20 07:00 36.0 C L 68 25 H 184/94 H 92 09/25/20 06:00 36.3 C L 58 L 18 159/73 H 92 09/25/20 05:00 36.3 C L 58 L 23 157/83 H 90 09/25/20 04:55 58 L 09/25/20 04:00 36.3 C L 58 L 23 157/83 H 90 09/25/20 03:43 61 23 90 09/25/20 03:00 36.3 C L 62 24 157/83 H 91 09/25/20 02:00 36.1 C L 65 21 157/70 H 90 09/25/20 01:00 35.6 C L 64 24 129/65 91 09/25/20 00:10 58 L 09/25/20 00:00 35.6 C L 58 L 21 185/86 H 95 09/24/20 23:59 36.5 C 68 17 173/84 H 92 09/24/20 23:33 61 23 93 09/24/20 23:25 35.7 C L 65 23 173/84 H 92 09/24/20 23:00 35.7 C L 65 21 167/90 H 91 09/24/20 22:05 35.9 C L 82 177/87 H 91 09/24/20 22:00 35.9 C L 93 H 92 Laboratory Results Laboratory Results - last 24 hr 09/24/20 09/24/20 09/24/20 09:56 11:50 16:21 WBC RBC Hgb Hct MCV MCH MCHC RDW Std Deviation RDW Coeff of Bisi Plt Count MPV Neutrophils % (Manual) Lymphocytes % (Manual) Monocytes % (Manual) Myelocytes % (Man) Neutrophils # (Manual) Total Absolute Neuts Lymphocytes # (Manual) Total Abs Lymphocytes Monocytes # (Manual) Myelocytes # (Manual) Sodium Potassium Chloride Carbon Dioxide Anion Gap BUN Creatinine Est Cr Clr Drug Dosing Est GFR ( Amer) Est GFR (Non-Af Amer) BUN/Creatinine Ratio Glucose POC Glucose 160 H Calcium Phosphorus Magnesium Total Bilirubin AST ALT Alkaline Phosphatase Troponin I 0.090 H* 0.034 Total Protein Albumin Globulin Albumin/Globulin Ratio 09/25/20 09/25/20 09/25/20 00:21 06:07 07:36 WBC 7.92 RBC 4.98 Hgb 14.2 Hct 43.0 MCV 86.3 MCH 28.5 MCHC 33.0 RDW Std Deviation 46.4 H RDW Coeff of Bisi 14.6 H Plt Count 171 MPV 10.6 H Neutrophils % (Manual) 85.1 Lymphocytes % (Manual) 7.0 Monocytes % (Manual) 6.1 Myelocytes % (Man) 1.8 Neutrophils # (Manual) 6.74 H Total Absolute Neuts 6.74 H Lymphocytes # (Manual) 0.55 L Total Abs Lymphocytes 0.55 L Monocytes # (Manual) 0.48 Myelocytes # (Manual) 0.14 H Sodium Potassium Chloride Carbon Dioxide Anion Gap BUN Creatinine Est Cr Clr Drug Dosing Est GFR ( Amer) Est GFR (Non-Af Amer) BUN/Creatinine Ratio Glucose POC Glucose 135 H 130 H Calcium Phosphorus Magnesium Total Bilirubin AST ALT Alkaline Phosphatase Troponin I Total Protein Albumin Globulin Albumin/Globulin Ratio 09/25/20 07:36 WBC RBC Hgb Hct MCV MCH MCHC RDW Std Deviation RDW Coeff of Bisi Plt Count MPV Neutrophils % (Manual) Lymphocytes % (Manual) Monocytes % (Manual) Myelocytes % (Man) Neutrophils # (Manual) Total Absolute Neuts Lymphocytes # (Manual) Total Abs Lymphocytes Monocytes # (Manual) Myelocytes # (Manual) Sodium 143 Potassium 4.0 Chloride 111 H Carbon Dioxide 24 Anion Gap 9.0 BUN 38 H Creatinine 1.04 Est Cr Clr Drug Dosing 78.1 Est GFR ( Amer) 83.3 Est GFR (Non-Af Amer) 71.9 BUN/Creatinine Ratio 36.2 H Glucose 139 H POC Glucose Calcium 9.1 Phosphorus 2.6 Magnesium 2.1 Total Bilirubin 0.9 AST 34 ALT 30 Alkaline Phosphatase 90 Troponin I Total Protein 7.1 Albumin 2.4 L Globulin 4.7 H Albumin/Globulin Ratio 0.5 L Medications Administered Current Inpatient Medications Albuterol (Albuterol Hfa 8 Gm Inhaler) 2 puffs INH Q4H PRN PRN Reason: Shortness Of Breath Stop: 10/22/20 01:56 Enoxaparin Sodium (Enoxaparin Inj 40 Mg/0.4 Ml Syr) 40 mg SQ BID@0600,1800 [facility] Stop: 10/22/20 02:29 Last Admin: 09/25/20 04:56 Dose: 40 mg Documented by: Guaifenesin (Guaifenesin Sugar Free 100 Mg/5 Ml Udc) 100 mg PO Q6H PRN PRN Reason: Cough Stop: 10/22/20 01:56 Hydralazine HCl (Hydralazine Hcl 20 Mg/Ml Vial) 10 mg IV Q6 PRN PRN Reason: Hypertension Stop: 10/24/20 18:54 Last Admin: 09/25/20 01:08 Dose: 10 mg Documented by: Dexamethasone 6 mg/ Syringe 1.5 mls @ 1 mls/min IV DAILY MATHIEU Stop: 10/02/20 08:59 Last Admin: 12/22/20 09:20 Dose: 1 mls/min Documented by: Famotidine 20 mg/ Syringe 5 mls @ 2.5 mls/min IV BID [facility] Stop: 10/22/20 08:59 Last Admin: 09/25/20 09:19 Dose: 2.5 mls/min Documented by: Thiamine HCl 100 mg/ Syringe 10 mls @ 2 mls/min IV QAM [facility] Stop: 10/24/20 08:59 Last Admin: 09/25/20 09:20 Dose: 2 mls/min Documented by: Dexmedetomidine HCl 400 mcg/ (Sodium Chloride) 100 mls @ 41.475 mls/hr IV .Q2H25M [facility]; Protocol Stop: 09/28/20 08:14 Last Admin: 09/25/20 09:36 Dose: 1.5 mcg/kg/hr, 41.5 mls/hr Documented by: Acetaminophen (Ofirmev) 1,000 mg in 100 mls @ 400 mls/hr IV Q8H PRN PRN Reason: Fever or headache Stop: 09/27/20 09:00 Lorazepam (Ativan) 2 mg in 4 mls @ 4 mls/min IV Q8 [facility] Stop: 10/24/20 21:59 Last Admin: 09/25/20 04:57 Dose: 4 mls/min Documented by: Furosemide 20 mg/ Syringe 2 mls @ 4 mls/min IV DAILY [facility] Stop: 10/25/20 08:59 Last Admin: 09/25/20 09:25 Dose: 4 mls/min Documented by: Metoprolol Tartrate (Metoprolol Tartrate 1 Mg/Ml Vial) 5 mg IV Q6 [facility] Stop: 10/24/20 11:59 Last Admin: 09/25/20 04:55 Dose: Not Given Documented by: Midazolam HCl (Midazolam Hcl 1 Mg/Ml 2ml Vial) 4 mg IV Q2H PRN PRN Reason: Agitation Stop: 10/24/20 08:55 Last Admin: 09/25/20 09:32 Dose: 4 mg Documented by: Morphine Sulfate (Morphine Sulfate 2 Mg/Ml Carp) 2 mg IV Q4 PRN PRN Reason: Pain Stop: 10/09/20 09:27 Last Admin: 09/25/20 09:37 Dose: 2 mg Documented by: PG Care Time/CCT Total # of Minutes Spent Total Time Spent with Patient: Total time spent is greater than 50% in coordination of care (as documented) at patient's floor/unit and/or counseling patient: Coding Level of Care Code 84141 Subseq Hosp Care Lvl 2 Diagnoses Pneumonia due to COVID-19 virus U07.1; J12.89 Acute respiratory failure with hypoxia J96.01 Acute metabolic encephalopathy G93.41 Acute on chronic diastolic CHF (congestive heart failure) I50.33 Hyponatremia E87.1 Vitamin D deficiency E55.9 Restrictive lung disease J98.4 GUS on CPAP G47.33; Z99.89 Gout M10.9 Chronicity: unspecified Gout etiology: unspecified cause Gout site: unspecified site BPH with obstruction/lower urinary tract symptoms N40.1; N13.8 Hypertension I10 Hypertension type: essential hypertension Hypothyroidism E03.9 Hypothyroidism type: unspecified Opioid dependence F11.20 Substance use status: uncomplicated Acid reflux K21.9 Esophagitis presence: esophagitis presence not specified DVT prophylaxis Z29.9 Discharge planning issues Z02.9 (1) Opioid dependence Substance use status: uncomplicated Qualified Code(s): F11.20 - Opioid dependence, uncomplicated (2) Gout Chronicity: unspecified Gout etiology: unspecified cause Gout site: unspecified site Qualified Code(s): M10.9 - Gout, unspecified (3) Hypothyroidism Hypothyroidism type: unspecified Qualified Code(s): E03.9 - Hypothyroidism, unspecified (4) Acid reflux Esophagitis presence: esophagitis presence not specified Qualified Code(s): K21.9 - Gastro-esophageal reflux disease without esophagitis (5) Hypertension Hypertension type: essential hypertension Qualified Code(s): I10 - Essential (primary) hypertension
--- NOTE | 2020-09-25 15:52 | Critical Care Progress Note ---
Date of Service September 25, 2020 Assessment & Plan (1) Acute metabolic encephalopathy: Reason Critically Ill: 69-year-old male with acute hypoxic respiratory failure due to Covid 19 pneumonia, confusion and delirium. Currently requiring treatment with BiPAP and sedation with Precedex drip . Neuro - Metabolic encephalopathymultiple contributing causes this patient currently infected with COVID-19 pneumonia, hypoxic, fevers, polypharmacy, and reported history of delirium on previous hospitalizations. - BUN is unremarkable, ammonia within normal limit, CO2 within normal limits -Patient is drinking alcohol on a daily basis 3 beers a day. DTs could also be playing a role on top of COVID-19 delirium Continue with Precedex. If there is any clinical deterioration in respiratory status will intubate. Patient does have history of tracheostomy in the past. Chronic pain and neuropathy On Percocet 10/325 3 times daily as well as Lyrica 100 mg 3 times daily This might be one of the reasons the patient has high tolerance to negatives Cardiac - History of diastolic heart failure with last echo in 2014 Continue with diuresis as tolerated Type II TN --> monitor troponin, no ST-T wave changes old right bundle branch block HTNcontinue with blood pressure medication Respiratory - Acute hypoxic respiratory failure likely secondary to COVID-19 pneumonia and component of diastolic CHF (BNP 7563 on presentation) -Patient not candidate for remdesivir therapy as he was 10 days of symptoms on admission, symptoms started 09/12/20, undergoing treatment with dexamethasone for total of 10 days -Oxygen saturation improved with administration of BiPAP, assistance of Precedex as patient is delirious and has previously continued to remove medical equipment causing severe desaturations and respiratory distress -CTA from 09/21 negative for pulmonary embolism -Keep O2 saturation 90-92% History of GUS On CPAP 11 cmH2O at home GI - N.p.o. for now while on BiPAP and Precedex drip GERDcontinue famotidine RENAL/LYTES - Creatinine 1.2 at baseline Continue with monitoring BUNs/creatinine Replete electrolytes as per ICU protocol - Foleystrict I's and O's ENDO - No history of diabetes, ICU hyperglycemic protocol Hypothyroidcontinue Synthroid when able HEME - History of anemia, H&H currently stable at this time and no indication for transfusion. Monitor CBCs ID - Procalcitonin 0.14 on 09/24/2020 UA unremarkable and blood cultures negative to date --Prophylaxis VTE: Lovenox 40 mg twice daily GI: Pepcid Lines: Peripheral Diet: N.p.o. Plan: In/out: -1.6 L, urine output 2.6 L Patient is maxed out on Precedex. He was still having bouts of restlessness at the time of examination. Responded well to morphine and Ativan. Unfortunately his mentation is still not good. He being on 10 mg of Percocet 3 times daily might be playing a role in where we are right now. I will put him on morphine 2 mg every 4 hours as needed. I will think about adding ketamine drip if need be. Continue with Ativan 2 mg every 8 hours. If there is any clinical deterioration or there is more restlessness appreciated then I will intubate the patient. Given the polypharmacy and history of tracheostomy in the past patient is very very high risk of needing tracheostomy again if he gets intubated. Threshold for intubation is high if his saturation is controlled with medication. was called on [phone] updated regarding the current status of the patient. I have personally spent additional 35 minutes of critical care time in the direct management of this patient. This is a life/limb threatening event. This includes time spent evaluating pa tient, direct bedside care, chart review, placing orders, interpretation of diagnostic studies, discussion with consultants, patient, and family members, as well as other required patient management activities. This time is exclusive of all separately billable procedures, and teaching time and separate from and in addition to any other critical care service time. Please note the above document was generated using voice recognition software. It may contain grammatical, syntax or spelling errors. (2) Acute on chronic diastolic CHF (congestive heart failure): (3) Acute respiratory failure with hypoxia: (4) Pneumonia due to COVID-19 virus: (5) GUS on CPAP: Admission and Anticipated Discharge Date Admission Date: September 22, 2020 Subjective Patient seen and examined at bedside. At the time of examination patient was restless. He was breathing in the forties. He was given 4 mg of Ativan as well as 2 mg of morphine to calm him down. His oxygenation is not an issue but his mental status is. He was on Precedex 1.5 the time of examination. Afebrile Review of Systems Review of Systems: Unobtainable due to mental health condition and Unobtainable due to cognitive status Physical Exam Physical Exam: Constitutional: No acute distress HEENT: PERRLA, previous tracheostomy scar Respiratory system: Decreased air entry bilaterally, no wheeze, no rhonchi, positive crackles bilaterally CVS: S1-S2 positive, no murmurs or gallops Abdomen: Soft, nontender, nondistended, positive bowel sounds x4 Extremities: +2 pulses bilaterally radialis/ dorsalis pedis, no cyanosis, no edema Neuro: Sedated, RASS -1 Psych: Unable to assess G/U: Positive Rodriguez Skin: no rashes, warm and dry Lymphatic: no cervical or axillary lymphadenopathy Results & Data Results & Data ([facility]) Vital Signs (Past 12 Hours) Vital Signs Temp Pulse Resp BP Pulse Ox 09/25/20 15:27 98 H 30 H 93 09/25/20 15:06 37.1 C 102 H 31 H 157/61 H 88 L 09/25/20 15:00 37.1 C 75 23 157/61 H 91 09/25/20 14:30 37.1 C 65 24 193/81 H 91 09/25/20 14:00 37.2 C 74 27 H 177/85 H 91 09/25/20 13:40 37.2 C 72 182/106 H 92 09/25/20 13:00 37.0 C 63 22 190/83 H 95 09/25/20 12:00 37.0 C 89 23 184/85 H 93 09/25/20 11:35 78 40 H 92 09/25/20 11:00 36.8 C 63 23 188/111 H 94 09/25/20 10:30 36.7 C 61 24 175/98 H 92 09/25/20 10:00 36.6 C 63 26 H 180/82 H 91 09/25/20 09:56 36.6 C 71 26 H 175/92 H 92 09/25/20 09:36 36.6 C 81 27 H 180/89 H 93 09/25/20 09:34 36.6 C 86 30 H 214/97 H 93 09/25/20 09:00 36.4 C L 68 23 209/86 H 91 09/25/20 08:00 36.2 C L 66 25 H 196/84 H 94 09/25/20 07:00 36.0 C L 68 25 H 184/94 H 92 09/25/20 06:00 36.3 C L 58 L 18 159/73 H 92 09/25/20 05:00 36.3 C L 58 L 23 157/83 H 90 09/25/20 04:55 58 L 09/25/20 04:00 36.3 C L 58 L 23 157/83 H 90 09/25/20 07:36 09/25/20 07:36 Coding Level of Care Code Critical Care 1st 30-74 mins Diagnoses Acute metabolic encephalopathy G93.41 Acute on chronic diastolic CHF (congestive heart failure) I50.33 Acute respiratory failure with hypoxia J96.01 Pneumonia due to COVID-19 virus U07.1; J12.89 GUS on CPAP G47.33; Z99.89 Time Spent (min) 35
[2020-09-25] MEDS ORDERED: LORazepam 2 MG/4 ML VIAL IV STA (15:59)
[2020-09-25] MEDS ORDERED: RAPID SEQUENCE INDUCTION BAG ONE (15:59)
[2020-09-25] MEDS ORDERED: PROPOFOL BOLUS FROM BAG IV PRN ×2 (16:31→17:20)
[2020-09-25] MEDS ORDERED: STAT IV Infusion **Titration per Protocol STA ×3 (16:31→17:20)
[2020-09-25] MEDS: fentaNYL DRIP 1,250 MCG/250 ML BAG IV SCH ×2 (16:47→22:55)
[2020-09-25] MEDS: propofoL 1,000 MG/100 ML VIAL IV SCH ×2 (16:48→21:01)
--- NOTE | 2020-09-25 17:19 | Procedure Note ---
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 Procedure: Consent was verified and timeout performed. Appropriate imaging studies were reviewed prior to the procedure. Under aseptic and sterile condition, right IJ vein was accessed under direct ultrasound guidance. Guidewire was confirmed to be within the lumen of vein with the help of ultrasound. Catheter was introduced via Seldinger technique. Guide a wire was removed. Good non-pulsatile blood flow was appreciated from all the ports. The catheter was placed at 16 cm and sut[address] in place. BioPatch was applied to the catheter and a sterile Tegaderm dressing was applied over the catheter with careful attention to sterility. Lung sliding was appreciated post procedure with the help ultrasound. Chest x-ray to follow Patient tolerated the procedure well. Blood loss: Less than 2 cc Complications: None Coding CPT Codes Tubes, Drains, and Vasc Access - Tubes, Drains, and Vasc Access: [id number] Place catheter in vein superior or inferior vena cava ([id number]) Tubes, Drains, and Vasc Access - Tubes, Drains, and Vasc Access: [id number] Ultrasound Guidance For Vascular ([id number]) [facility] Procedure Codes (Charges) Tubes, Drains, and Vasc Access Procedure 1: Tubes, Drains, and Vasc Access: [id number] Place catheter in vein superior or inferior vena cava Procedure 2: Tubes, Drains, and Vasc Access: [id number] Ultrasound Guidance For Vascular
--- NOTE | 2020-09-25 17:19 | Procedure Note ---
Procedure Note Date of Service September 25, 2020 INTUBATION PROCEDURE NOTE: Attending: Dr Saturnino Henry MD Patient was evaluated and plan to intubate was made for severe agitation with ventilatory failure Sedative agent used: Etomidate 20 mg, midazolam 4 mg, 100 mg lidocaine Paralysis agent used: Rocuronium 70 Emergent consent was implied given patients rapidly declining clinical status and need for airway protection. Patient was updated prior to intubation The patient was prepared in the appropriate fashion. The patient was easily pre-oxygenated by using [id number] ventilation. With help of CMAC grade 3 vocal cords were visualized and 7.5 Frisian ETT was introduced on first attempt to 25 cm at the lip. The stylette was removed and balloon was inflated with 10mL of air. Appropriate Colorimetric change was appreciated for at least 10 breaths. Bilateral chest rise and breath sounds were appreciated without air sounds in the epigastrium. Patient tolerated the procedure well and there were no immediate complications. Chest Xray to follow for confirming placement. Coding CPT Codes Resuscitation - Resuscitation: 24008 Endotracheal Intubation, emergency ([id number]) [facility] [place] Procedure Codes (Charges) Resuscitation Resuscitation: 69795 Endotracheal Intubation, emergency
--- NOTE | 2020-09-25 17:20 | Procedure Note ---
Procedure Note Date of Service September 25, 2020 ARTERIAL LINE PROCEDURE NOTE: Procedure: Arterial Line Placement Attending: Dr. Saturnino Henry MD Indication: Monitoring on Pressors Anesthesia: General sedation Emergency consent was applied A time-out was completed verifying correct patient, procedure, site, positioning, and implant(s) or special equipment if applicable. Allens test was performed to ensure adequate perfusion. Patients right wrist was prepped and draped in the usual sterile fashion. Ultrasound guidance was used to aid needle placement. A 20g Arrow arterial line was introduced into the right radial artery. Catheter was threaded, and the needle was removed with appropriate pulsatile blood return. Good waveform was observed on the monitor. The patient tolerated the procedure well. Confirmation of placement with ultrasound. Complications: None Blood Loss: Less than 2 cc Coding CPT Codes Tubes, Drains, and Vasc Access - Tubes, Drains, and Vasc Access: [id number] Insertion Catheter, Artery ([id number]) Tubes, Drains, and Vasc Access - Tubes, Drains, and Vasc Access: [id number] Ultrasound Guidance For Vascular ([id number]) [facility] Procedure Codes (Charges) Tubes, Drains, and Vasc Access Procedure 1: Tubes, Drains, and Vasc Access: [id number] Insertion Catheter, Artery Procedure 2: Tubes, Drains, and Vasc Access: [id number] Ultrasound Guidance For Vascular
[2020-09-25] MEDS ORDERED: fentaNYL DRIP 1,250 MCG/250 ML BAG IV SCH (17:30)
[2020-09-25] MEDS ORDERED: propofoL 1,000 MG/100 ML VIAL IV SCH (17:30)
[2020-09-25] MEDS ORDERED: MIDAZOLAM HCL 5 MG/ML 1 ML VIAL ONE (18:40)
[2020-09-25] MEDS ORDERED: LIDOCAINE 2% 20 MG/ML 5 ML SYR IV ONE (18:41)
[2020-09-25] MEDS ORDERED: ETOMIDATE 2 MG/ML 20 ML VIAL IV ONE (18:41)
--- NOTE | 2020-09-25 18:49 | XRay Report ---
SINGLE VIEW CHEST CLINICAL HISTORY: Respiratory failure. Intubation. FINDINGS: 2 AP, portable, upright chest radiographs are compared to study dated 09/24/2020 and correl ated with chest CT dated 09/21/2020. The examination is degraded by portable technique and patient ro tation. A right internal jugular central venous catheter has been placed. The tip projects over the S VC. An enteric tube has been placed. The tip projects below the diaphragm over the mid stomach. An en dotracheal tube has been placed. The tip projects approximately 4 cm above the jake. The heart is e nlarged noting atherosclerotic calcification of the thoracic aorta. Hazy airspace consolidation is se en throughout both lungs. This appears modestly cleared as compared to 09/24/2020. No small pleural e ffusions are suspected. No pneumothorax is seen. The skeletal structures are osteopenic. The bony tho rax is grossly intact. IMPRESSION: 1. Lines and tubes as above. 2. Cardiomegaly. 3. Hazy bilateral airspace opacities have modestly cleared as compared to 09/24/2020. This could repr esent multifocal pneumonia and/or pulmonary edema. Clinical correlation will be essential. 4. Small pleural effusions. ACT 112: Negative or not required by law. Electronically signed by: Lucas Guadalupe M.D. 09/25/2020 6:48 PM
[2020-09-25] MEDS: ALBUT/IPRATROP 3MG/0.5MG NEB 3 ML VIAL NEB SCH (19:34)
[2020-09-25 19:48] LABS: iSTAT Art Bld Gas pCO2 Correct 50 mmHg (35-46); iSTAT Art Bld Gas pH Corrected 7.349 (7.35-7.45); iSTAT Arterial Blood Gas HCO3 27 meg/L (19-24); iSTAT Arterial Blood Gas pCO2 50 mmHg (35-46); iSTAT Arterial Blood Gas pH 7.35 (7.35-7.45); iSTAT Arterial Blood Gas pO2 110 mmHg (80-95); iSTAT Arterial Blood Gas pO2 C 112; iSTAT Carbon Dioxide 29 mmol/L (24-31); iSTAT FiO2 70 %; iSTAT Hematocrit 41 % (42-52); iSTAT Hemoglobin 13.9 g/dl (14.0-18.0); iSTAT Potassium 4.3 mmol/L (3.3-5.0); iSTAT Site Art Line; iSTAT Sodium 143 mmol/L (135-144)
[2020-09-25] MEDS: PREGABALIN 100 MG CAP PO SCH (20:20)
[2020-09-25] MEDS: allopurinoL 100 MG TAB PO SCH (20:20)
[2020-09-25] MEDS: guaiFENesin SUGAR FREE 100 MG/5 ML UDC PO SCH (20:22)
[2020-09-25] MEDS ORDERED: guaiFENesin 600 MG TABCR PO SCH (21:00)
[2020-09-26] MEDS ORDERED: MIDAZOLAM BOLUS FROM BAG IV PRN (00:18)
[2020-09-26] MEDS ORDERED: STAT IV Infusion **Titration per Protocol STA ×3 (00:18→10:27)
[2020-09-26] MEDS ORDERED: MIDAZOLAM HCL 125 MG/250 ML BAG IV SCH (00:30)
[2020-09-26] MEDS: METOPROLOL TARTRATE 1 MG/ML VIAL IV SCH ×4 (00:36→19:35)
[2020-09-26] MEDS: propofoL 1,000 MG/100 ML VIAL IV SCH ×8 (00:38→18:16)
[2020-09-26] MEDS: NOREPINEPHRINE/D5W 8 MG/508 ML BAG IV SCH (02:34)
[2020-09-26 03:59] LABS: iSTAT Art Bld Gas pCO2 Correct 47 mmHg (35-46); iSTAT Art Bld Gas pH Corrected 7.364 (7.35-7.45); iSTAT Arterial Blood Gas HCO3 27 meg/L (19-24); iSTAT Arterial Blood Gas pCO2 45 mmHg (35-46); iSTAT Arterial Blood Gas pH 7.38 (7.35-7.45); iSTAT Arterial Blood Gas pO2 73 mmHg (80-95); iSTAT Arterial Blood Gas pO2 C 78; iSTAT Carbon Dioxide 28 mmol/L (24-31); iSTAT FiO2 60 %; iSTAT Hematocrit 37 % (42-52); iSTAT Hemoglobin 12.6 g/dl (14.0-18.0); iSTAT Site Art Line; iSTAT Sodium 142 mmol/L (135-144)
[2020-09-26] MEDS: fentaNYL DRIP 1,250 MCG/250 ML BAG IV SCH ×3 (05:13→14:03)
[2020-09-26] MEDS: LORazepam 2 MG/4 ML VIAL IV SCH (05:13)
[2020-09-26] MEDS: ENOXAPARIN INJ 40 MG/0.4 ML SYR SQ SCH ×2 (05:14→19:36)
[2020-09-26] MEDS: guaiFENesin SUGAR FREE 100 MG/5 ML UDC PO SCH ×3 (05:43→19:35)
[2020-09-26 06:25] LABS: Basophils # (auto) 0.04 K/uL (0-0.2); Basophils % (auto) 0.3 %; Hematocrit (blood only) 40.2 % (42-52); Hemoglobin 12.7 g/dL (14.0-18.0); Immature Granulocytes # (auto) 0.43 K/uL (0.00-0.02); Immature Granulocytes % (auto) 2.7 %; Lymphocytes # (auto) 1.56 K/uL (1.2-3.4); Lymphocytes % (auto) 9.8 %; Mean Corpuscular Hemoglobin 28.1 pg (25-34); Mean Corpuscular Hgb Conc 31.6 g/dL (32-36); Mean Corpuscular Volume 88.9 fL (80-100); Monocytes # (auto) 1.15 K/uL (0.11-0.59); Monocytes % (auto) 7.2 %; Neutrophils # (auto) 12.78 K/uL (1.4-6.5); Platelet Count 236 K/uL (130-400); RDW Coefficient of Variation 15.2 % (11.5-14.5); Red Blood Count 4.52 M/uL (4.7-6.1); White Blood Count 15.96 K/uL (4.8-10.8)
[2020-09-26 06:59] LABS: Albumin Level 2.2 gm/dl (3.4-5.0); BUN Creatinine Ratio 26.2 (10-20); Calcium 8.2 mg/dl (8.5-10.1); Creatinine Clr Calc Pharmacy 42.3 ml/min; Est GFR (African American) 40.2; Est GFR (Non-African American) 34.7; Magnesium 2.2 mg/dl (1.8-2.4); Potassium 3.9 mmol/L (3.5-5.1)
[2020-09-26 07:02] LABS: Albumin Globulin Ratio 0.5 (0.9-2); Bilirubin,Total 1.2 mg/dl (0.2-1); Globulin 4.2 gm/dl (2.5-4.0); Phosphorus 3.5 mg/dl (2.5-4.9); Total Protein 6.4 gm/dl (6.4-8.2)
[2020-09-26] MEDS: ALBUT/IPRATROP 3MG/0.5MG NEB 3 ML VIAL NEB SCH ×4 (07:45→19:03)
--- NOTE | 2020-09-26 08:58 | XRay Report ---
XR chest 1V portable HISTORY: Respiratory failure. COMPARISON: Chest 09/23/2020. FINDINGS: The endotracheal tube appears to terminate approximately 2.9 cm from the jake. Nasogastri c tube terminates below the diaphragm. The tip is not included on this study. Right jugular central v enous catheter terminates in the SVC. No pneumothorax. There are low lung volumes. The heart remains mildly enlarged. Diffuse interstitial thickening and hazy airspace opacities most pronounced within t he lung bases have progressed. Suspect trace bilateral pleural effusions. IMPRESSION: 1. Slight progression of the hazy airspace opacities and diffuse interstitial thickening. This could represent a multifocal pneumonia or pulmonary edema. 2. Satisfactory support line placement. ACT 112: Negative or not required by law. Electronically signed by: Job Bailey M.D. 09/26/2020 8:57 AM
[2020-09-26] MEDS ORDERED: DOCUSATE SODIUM/SENNA 50/8.6MG TAB PO SCH (09:00)
[2020-09-26] MEDS: THIAMINE HCL 100 MG in SYRINGE 9 ML IV SCH (09:41)
[2020-09-26] MEDS: dexAMETHasone 6 MG in SYRINGE 0 ML IV SCH (09:41)
[2020-09-26] MEDS: FAMOTIDINE 20 MG in SYRINGE 3 ML IV SCH ×2 (09:41→19:36)
[2020-09-26] MEDS: allopurinoL 100 MG TAB PO SCH (09:42)
[2020-09-26] MEDS: PREGABALIN 100 MG CAP PO SCH ×3 (09:53→19:35)
[2020-09-26] MEDS: KETAMINE HCL / NSS 500 MG/500 ML BAG IV SCH (11:34)
[2020-09-26] MEDS: SENNOSIDES 8.8 MG/5 ML UDC PO SCH (14:02)
[2020-09-26] MEDS: DOCUSATE SODIUM SYRUP 100 MG/10 ML UDC PO SCH (14:02)
--- NOTE | 2020-09-26 14:06 | Critical Care Progress Note ---
Date of Service September 26, 2020 Assessment & Plan (1) Acute metabolic encephalopathy: Reason Critically Ill: 69-year-old male with acute hypoxic respiratory failure due to Covid 19 pneumonia, confusion and delirium. Needed to be intubated for agitation encephalopathy and hypoxia on 09/25/2020 Neuro - Metabolic encephalopathymultiple contributing causes this patient currently infected with COVID-19 pneumonia, hypoxic, fevers, polypharmacy, and reported history of delirium on previous hospitalizations. - BUN is unremarkable, ammonia within normal limit, CO2 within normal limits -Patient is drinking alcohol on a daily basis 3 beers a day. DTs could also be playing a role on top of COVID-19 delirium Continue with propofol, fentanyl. Ketamine added 09/26/2020 to try to go down on propofol and fentanyl dose return of midazolam Patient does have history of tracheostomy in the past. Chronic pain and neuropathy On Percocet 10/325 3 times daily as well as Lyrica 100 mg 3 times daily This might be one of the reasons the patient has high tolerance to negatives Lyrica resumed on 09/26/2020 Cardiac - History of diastolic heart failure with last echo in 2014 Continue with diuresis as tolerated Type II WI --> monitor troponin, no ST-T wave changes old right bundle branch block HTNcontinue with blood pressure medication Respiratory - Vent dependent respiratory failure --> acute hypoxic respiratory failure likely secondary to COVID-19 pneumonia and component of diastolic CHF (BNP 7563 on presentation) -Continue with ventilatory support -Keep RASS -1 -Daily sedation holidays and SBT's History of GUS On CPAP 11 cmH2O at home GI - N.p.o. for now while on BiPAP and Precedex drip GERDcontinue famotidine RENAL/LYTES - JERRY:- Creatinine 1.2 at baseline Continue with monitoring BUNs/creatinine Replete electrolytes as per ICU protocol - Foleystrict I's and O's ENDO - No history of diabetes, ICU hyperglycemic protocol Hypothyroidcontinue Synthroid when able HEME - History of anemia, H&H currently stable at this time and no indication for transfusion. Monitor CBCs ID - Procalcitonin 0.14 on 09/24/2020 UA unremarkable and blood cultures negative to date Sputum culture growing group C beta strep on 09/26/2020 --Prophylaxis VTE: Lovenox 40 mg twice daily GI: Pepcid Lines: Right IJ 09/25, right radial 09/25, positive Rodriguez, intubated 09/25 Diet: Start feeding Plan: In/out: -354, urine output 1750 AB.38/45/73 on 60% with PEEP of 10 We will try to start the patient on ketamine drip so that we can titrate down midazolam as well as propofol. JERRY likely secondary to hypotensive episode yesterday. Hold Lasix. Monitor BUNs/creatinine. Avoid nephrotoxic medication. Patient is making good amount of urine. Luke ptosis is likely reactive from intubation yesterday. Start the patient on Rocephin for 5 days given group C strep found in the sputum. [phone] I have personally spent additional 43 minutes of critical care time in the direct management of this patient. This is a life/limb threatening event. This includes time spent evaluating patient, direct bedside care, chart review, placing orders, interpretation of diagnostic studies, discussion with consultants, patient, and family members, as well as other required patient management activities. This time is exclusive of all separately billable procedures, and teaching time and separate from and in addition to any other critical care service time. Please note the above document was generated using voice recognition software. It may contain grammatical, syntax or spelling errors. (2) Acute on chronic diastolic CHF (congestive heart failure): (3) Acute respiratory failure with hypoxia: (4) Pneumonia due to COVID-19 virus: (5) GUS on CPAP: Admission and Anticipated Discharge Date Admission Date: September 22, 2020 Subjective Patient seen and examined at bedside. No acute distress. Overnight patient was still restless on propofol and fentanyl subsequently midazolam was added. The time of examination patient was on propofol 50, ferritin 150, midazolam 4 He was breathing with vent. Patient was RASS -2 Has been spiking fever. T-max 38.2 Review of Systems Review of Systems: Unobtainable due to cognitive status and Unobtainable due to endotracheal tube Physical Exam Physical Exam: Constitutional: No acute distress HEENT: PERRLA, previous tracheostomy scar, + ETT Respiratory system: Decreased air entry bilaterally, no wheeze, no rhonchi, positive crackles bilaterally CVS: S1-S2 positive, no murmurs or gallops Abdomen: Soft, nontender, nondistended, positive bowel sounds x4 Extremities: +2 pulses bilaterally radialis/ dorsalis pedis, no cyanosis, no edema Neuro: Sedated, + corneal, + gag, + pupillary Psych: Unable to assess G/U: Positive Rodriguez Skin: no rashes, warm and dry Lymphatic: no cervical or axillary lymphadenopathy Results & Data Results & Data ([facility]) Vital Signs (Past 12 Hours) Vital Signs Temp Pulse Resp BP Pulse Ox 09/26/20 13:00 37.5 C 99 H 161/68 H 93 09/26/20 12:30 37.7 C H 112 H 116/50 L 88 L 09/26/20 12:00 37.7 C H 90 127/57 L 92 09/26/20 11:34 93 H 121/58 L 09/26/20 11:30 37.7 C H 93 H 121/58 L 90 09/26/20 11:24 94 H 24 90 09/26/20 11:00 37.6 C H 104 H 161/67 H 91 09/26/20 10:30 37.7 C H 103 H 143/62 H 91 09/26/20 10:00 37.8 C H 99 H 97/46 L 87 L 09/26/20 09:30 37.8 C H 106 H 139/58 L 90 09/26/20 09:00 37.8 C H 98 H 147/60 H 93 09/26/20 08:30 37.8 C H 98 H 140/60 92 09/26/20 08:00 38.0 C H 85 107/48 L 92 09/26/20 07:46 85 27 H 92 09/26/20 07:30 38.0 C H 83 102/49 L 92 09/26/20 07:00 38.0 C H 82 105/49 L 93 09/26/20 06:00 38.1 C H 81 103/49 L 91 09/26/20 05:30 38.2 C H 100/50 L 89 L 09/26/20 05:14 95 H 120/35 L 09/26/20 05:00 38.1 C H 93 H 102/60 89 L 09/26/20 04:30 38.0 C H 95 H 106/48 L 89 L 09/26/20 04:00 38.0 C H 93 H 112/52 L 89 L 09/26/20 03:30 37.9 C H 94 H 111/51 L 89 L 09/26/20 03:19 94 H 32 H 90 09/26/20 03:00 37.9 C H 95 H 96/51 L 91 09/26/20 02:30 37.9 C H 100 H 92/47 L 90 09/26/20 02:00 37.8 C H 109 H 153/77 H 92 09/26/20 05:43 09/26/20 05:43 Coding Level of Care Code Critical Care 1st 30-74 mins Diagnoses Acute metabolic encephalopathy G93.41 Acute on chronic diastolic CHF (congestive heart failure) I50.33 Acute respiratory failure with hypoxia J96.01 Pneumonia due to COVID-19 virus U07.1; J12.89 GUS on CPAP G47.33; Z99.89 Time Spent (min) 43
[2020-09-26] MEDS: cefTRIAXone SODIUM 2,000 MG in DEXTROSE 5% 50 ML IV SCH (15:06)
[2020-09-26] MEDS: PEPTAMEN INTENSE VHP 1.0 CAL 1,000 ML BAG OG SCH (19:36)
--- NOTE | 2020-09-26 21:51 | Hospitalist Progress Note ---
Date of Service September 26, 2020 Assessment & Plan (1) Pneumonia due to COVID-19 virus: -Dexamethasone 6mg IV daily, day 5 no Remdesivir or plasma as he presented 9 days into illness -Albuterol HFA PRN with acute hypoxic respiratory failure treated with BIPAP, tolerated well initially 09/25: intubated and ventilated doing well today, PEEP of 8 and FiO2 50%, tidal volumes [address] Henry (2) Acute respiratory failure with hypoxia: Secondary to Covid-19 PNA, stable with BIPAP on 09/24 however, he deteriorated, required intubation on 09/25 doing well with PEEP of 8 and FiO2 of 50% (3) Acute metabolic encephalopathy: has a history of delirium when hospitalized he drinks at least 3 beers a day. maybe more, so possible that DT's playing a role on Ketalal and Fentanyl will need to reassess mental status when we wean back sedation (4) Acute kidney injury: Cr up to 1.9, electrolytes stable monitor closely (5) Acute on chronic diastolic CHF (congestive heart failure): related to aortic stenosis lasix given 09/22. still appears euvolemic, use Lasix PRN (6) Hyponatremia: was probably related to CHF - corrected after diuresis. follow periodically (7) Vitamin D deficiency: -Continue supplementation (8) Restrictive lung disease: fortunately no hypercapnea on ABG (9) GUS on CPAP: Chronic -again fortunately no hypercapnea (10) Gout: Chronic. Stable. 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 No evidence of UTI -Continue alfuzosin -Continue solifenacin (12) Hypertension: BP acceptable for situation. continue metoprolol and follow (13) Hypothyroidism: Chronic. Stable. Last TSH in 10/24 = 3.95 -Continue Synthroid 25mcg po daily (14) Opioid dependence: Patient with chronic pain and neuropathy -Continue Percocet 10/325 TID -Continue Lyrica 100mg po TID -Continue Duloxetine (obviously want to avoid precipitating withdrawal) giving Morphine to prevent further withdrawal symptoms (15) Acid reflux: Chronic. Stable -Pepcid 20mg IV BID - may have effect on disease severity in Covid-19 (16) DVT prophylaxis: lovenox (17) Discharge planning issues: still acutely ill - moved to ICU. Admission and Anticipated Discharge Date Admission Date: September 22, 2020 Subjective sedated with Fentanyl and Ketalal no major issues labs show WBC 15, Hb 12.7, plts 236 Cr up to 1.9, K is 3.9 Review of Systems Review of Systems: Unobtainable due to endotracheal tube and Unobtainable due to reduced consciousness Physical Exam Constitutional: well developed, + ill appearing, + morbidly obese and + mechanically ventilated; no acute distress Neck: trachea midline and + thick neck Respiratory: + tachypneic and symmetric chest movement (on ventilator) Auscultation: lungs clear to auscultation bilaterally Cardiovascular: Rate/Rhythm: regular rhythm and + bradycardic Heart Sounds: normal S1 and normal S2; no murmur Extremities: normal capillary refill; no edema Gastrointestinal (Abdomen): normal bowel sounds, soft, nontender, no hepatosplenomegaly Musculoskeletal: no cyanosis or clubbing, extremities motor strength 5/5 Skin: no rashes, warm and dry Neurologic: CN's II-XI intact bilaterally and + obtunded; no focal motor deficits Psychiatric: Orientation: + not alert Lymphatic: no cervical or axillary lymphadenopathy Results & Data Results & Data ([facility]) Vital Signs (Past 12 Hours) Vital Signs Temp Pulse Resp BP Pulse Ox 09/26/20 21:00 37.6 C H 85 121/56 L 93 09/26/20 20:30 37.5 C 90 140/61 94 09/26/20 20:00 37.5 C 89 139/59 L 94 09/26/20 19:35 108 H 151/43 H 09/26/20 19:30 37.5 C 107 H 130/59 L 92 09/26/20 19:00 37.5 C 96 H 150/65 H 93 09/26/20 18:58 96 H 20 93 09/26/20 18:30 37.5 C 97 H 145/65 H 94 09/26/20 18:00 37.5 C 102 H 143/60 H 94 09/26/20 17:30 37.5 C 105 H 141/77 H 94 09/26/20 17:00 37.5 C 102 H 135/65 91 09/26/20 16:30 37.6 C H 103 H 134/56 L 91 09/26/20 16:00 37.6 C H 108 H 124/63 92 09/26/20 15:30 37.6 C H 107 H 121/56 L 91 09/26/20 15:29 101 H 21 91 09/26/20 15:14 37.5 C 111 H 194/76 H 93 09/26/20 15:00 37.5 C 98 H 128/69 88 L 09/26/20 14:30 37.5 C 102 H 169/71 H 92 09/26/20 14:00 37.6 C H 91 H 87/43 L 90 09/26/20 13:30 37.5 C 97 H 117/61 92 09/26/20 13:00 37.5 C 99 H 161/68 H 93 09/26/20 12:30 37.7 C H 112 H 116/50 L 88 L 09/26/20 12:00 37.7 C H 90 127/57 L 92 09/26/20 11:34 93 H 121/58 L 09/26/20 11:30 37.7 C H 93 H 121/58 L 90 09/26/20 11:24 94 H 24 90 09/26/20 11:00 37.6 C H 104 H 161/67 H 91 09/26/20 10:30 37.7 C H 103 H 143/62 H 91 09/26/20 10:00 37.8 C H 99 H 97/46 L 87 L Laboratory Results Laboratory Results - last 24 hr 09/25/20 09/26/20 09/26/20 23:56 03:18 05:43 WBC 15.96 H RBC 4.52 L Hgb 12.7 L POC Hgb 12.6 L Hct 40.2 L POC Hct 37 L MCV 88.9 MCH 28.1 MCHC 31.6 L RDW Std Deviation 49.0 H RDW Coeff of Bisi 15.2 H Plt Count 236 MPV 11.0 H Immature Gran % (Auto) 2.7 Neut % (Auto) 80.0 Lymph % (Auto) 9.8 Yolo % (Auto) 7.2 Eos % (Auto) 0.0 Baso % (Auto) 0.3 Neut # (Auto) 12.78 H Lymph # (Auto) 1.56 Y[place] # (Auto) 1.15 H Eos # (Auto) 0.00 Baso # (Auto) 0.04 Immature Gran # (Auto) 0.43 H Sample Site Art Line POC pH 7.38 POC pCO2 45 POC pO2 73 L POC HCO3 27 H POC Total CO2 28 POC Base Excess 1.0 ABG pH (Temp Correct) 7.364 ABG pCO2 (Temp Corrct 47 H POC ABG pO2 at Pt Temp 78 POC ABG O2 Sat 94.0 Jean Claude Test NA O2 Delivery Device Ventilator POC O2 Rate 28 Minute Ventilation 10.2 POC FiO2 60 Tidal Volume 380 PEEP 10 POC Sodium 142 Sodium POC Potassium 4.0 Potassium Chloride Carbon Dioxide Anion Gap BUN Creatinine Est Cr Clr Drug Dosing Est GFR ( Amer) Est GFR (Non-Af Amer) BUN/Creatinine Ratio Glucose POC Glucose 144 H POC Glucose (other) Calcium Phosphorus Magnesium Total Bilirubin AST ALT Alkaline Phosphatase Total Protein Albumin Globulin Albumin/Globulin Ratio 09/26/20 09/26/20 09/26/20 05:43 06:04 12:48 WBC RBC Hgb POC Hgb Hct POC Hct MCV MCH MCHC RDW Std Deviation RDW Coeff of Bisi Plt Count MPV Immature Gran % (Auto) Neut % (Auto) Lymph % (Auto) Y[place] % (Auto) Eos % (Auto) Baso % (Auto) Neut # (Auto) Lymph # (Auto) Yolo # (Auto) Eos # (Auto) Baso # (Auto) Immature Gran # (Auto) Sample Site POC pH POC pCO2 POC pO2 POC HCO3 POC Total CO2 POC Base Excess ABG pH (Temp Correct) ABG pCO2 (Temp Corrct POC ABG pO2 at Pt Temp POC ABG O2 Sat Jean Claude Test O2 Delivery Device POC O2 Rate Minute Ventilation POC FiO2 Tidal Volume PEEP POC Sodium Sodium 143 POC Potassium Potassium 3.9 Chloride 109 H Carbon Dioxide 27 Anion Gap 7.0 BUN 50 H Creatinine 1.90 H D Est Cr Clr Drug Dosing 42.3 Est GFR ( Amer) 40.2 Est GFR (Non-Af Amer) 34.7 BUN/Creatinine Ratio 26.2 H Glucose 114 H POC Glucose 117 H POC Glucose (other) 154 H Calcium 8.2 L Phosphorus 3.5 Magnesium 2.2 Total Bilirubin 1.2 H AST 20 ALT 25 Alkaline Phosphatase 78 Total Protein 6.4 Albumin 2.2 L Globulin 4.2 H Albumin/Globulin Ratio 0.5 L 09/26/20 18:41 WBC RBC Hgb POC Hgb Hct POC Hct MCV MCH MCHC RDW Std Deviation RDW Coeff of Bisi Plt Count MPV Immature Gran % (Auto) Neut % (Auto) Lymph % (Auto) [place] % (Auto) Eos % (Auto) Baso % (Auto) Neut # (Auto) Lymph # (Auto) Y[place] # (Auto) Eos # (Auto) Baso # (Auto) Immature Gran # (Auto) Sample Site POC pH POC pCO2 POC pO2 POC HCO3 POC Total CO2 POC Base Excess ABG pH (Temp Correct) ABG pCO2 (Temp Corrct POC ABG pO2 at Pt Temp POC ABG O2 Sat Jean Claude Test O2 Delivery Device POC O2 Rate Minute Ventilation POC FiO2 Tidal Volume PEEP POC Sodium Sodium POC Potassium Potassium Chloride Carbon Dioxide Anion Gap BUN Creatinine Est Cr Clr Drug Dosing Est GFR ( Amer) Est GFR (Non-Af Amer) BUN/Creatinine Ratio Glucose POC Glucose POC Glucose (other) 166 H Calcium Phosphorus Magnesium Total Bilirubin AST ALT Alkaline Phosphatase Total Protein Albumin Globulin Albumin/Globulin Ratio Medications Administered Current Inpatient Medications Albuterol (Albuterol Hfa 8 Gm Inhaler) 2 puffs INH Q4H PRN PRN Reason: Shortness Of Breath Stop: 10/22/20 01:56 Albuterol (Albut/Ipratrop 3mg/0.5mg Neb 3 Ml Vial) 3 ml NEB QIDR COUNT INCLUDES THE [facility] Stop: 10/25/20 18:59 Last Admin: 09/26/20 19:03 Dose: 3 ml Documented by: Allopurinol (Allopurinol 100 Mg Tab) 100 mg PO DAILY COUNT INCLUDES THE [facility] Stop: 10/25/20 17:44 Last Admin: 09/26/20 09:42 Dose: 100 mg Documented by: Docusate Sodium (Docusate Sodium Syrup 100 Mg/10 Ml Udc) 100 mg PO QAM COUNT INCLUDES THE [facility] Stop: 10/26/20 10:59 Last Admin: 09/26/20 14:02 Dose: 100 mg Documented by: Enoxaparin Sodium (Enoxaparin Inj 40 Mg/0.4 Ml Syr) 40 mg SQ BID@0600,1800 COUNT INCLUDES THE [facility] Stop: 10/22/20 02:29 Last Admin: 09/26/20 19:36 Dose: 40 mg Documented by: Fentanyl Citrate (Fentanyl Bolus From Bag) 50 mcg IV Q60M PRN PRN Reason: Pain or Agitation Stop: 10/09/20 16:31 Last Admin: 09/25/20 19:59 Dose: 50 mcg Documented by: Guaifenesin (Guaifenesin Sugar Free 100 Mg/5 Ml Udc) 100 mg PO Q8H MATHIEU Stop: 10/25/20 20:14 Last Admin: 09/26/20 19:35 Dose: 100 mg Documented by: Heparin Sodium (Beef Lung) (Heparin 10 Unit/Ml 5 Ml Flush) 5 ml FLUSH PRN PRN PRN Reason: Flush Stop: 10/25/20 22:45 Hydralazine HCl (Hydralazine Hcl 20 Mg/Ml Vial) 10 mg IV Q6 PRN PRN Reason: Hypertension Stop: 10/24/20 18:54 Last Admin: 09/25/20 14:43 Dose: 10 mg Documented by: Dexamethasone 6 mg/ Syringe 1.5 mls @ 1 mls/min IV DAILY MATHIEU Stop: 10/02/20 08:59 Last Admin: 09/26/20 09:41 Dose: 1 mls/min Documented by: Famotidine 20 mg/ Syringe 5 mls @ 2.5 mls/min IV BID MATHIEU Stop: 10/22/20 08:59 Last Admin: 09/26/20 19:36 Dose: 2.5 mls/min Documented by: Thiamine HCl 100 mg/ Syringe 10 mls @ 2 mls/min IV QAM MATHIEU Stop: 10/24/20 08:59 Last Admin: 09/26/20 09:41 Dose: 2 mls/min Documented by: Acetaminophen (Ofirmev) 1,000 mg in 100 mls @ 400 mls/hr IV Q8H PRN PRN Reason: Fever or headache Stop: 09/27/20 09:00 Last Infusion: 09/26/20 05:43 Dose: Infused Documented by: Propofol (Diprivan) 1,000 mg in 100 mls @ 9.83 mls/hr IV .[id number] COUNT INCLUDES THE [facility]; Protocol Stop: 09/28/20 16:44 Last Admin: 09/26/20 18:16 Dose: Not Given Documented by: Midazolam HCl (Versed) 125 mg in 250 mls @ 0 mls/hr IV .Q0M MATHIEU; Protocol Stop: 10/26/20 00:29 Last Titration: 09/26/20 15:07 Dose: 0 mg/hr, 0 mls/hr Documented by: Norepinephrine Bitartrate (Levophed/D5w) 8 mg in 508 mls @ 20.807 mls/hr IV .Q24H COUNT INCLUDES THE [facility]; Protocol Stop: 10/26/20 02:29 Last Titration: 09/26/20 18:15 Dose: 0.03 mcg/kg/min, 12.5 mls/hr Documented by: Ketamine HCl (Ketalar / Nss) 500 mg in 500 mls @ 10.71 mls/hr IV .Q24H COUNT INCLUDES THE [facility]; Protocol Stop: 10/26/20 10:59 Last Titration: 09/26/20 12:56 Dose: 0.1 mg/kg/hr, 10.7 mls/hr Documented by: Ceftriaxone Sodium 2,000 mg/ (Dextrose) 70 mls @ 100 mls/hr IV DAILY@1200 MATHIEU; Protocol Stop: 10/03/20 14:29 Last Infusion: 09/26/20 16:55 Dose: Infused Documented by: Fentanyl Citrate (Fentanyl Citrate) 2,500 mcg in 250 mls @ 15 mls/hr IV .[id number] COUNT INCLUDES THE [facility]; Protocol Stop: 10/10/20 15:29 Metoprolol Tartrate (Metoprolol Tartrate 1 Mg/Ml Vial) 5 mg IV Q6 COUNT INCLUDES THE [facility] Stop: 10/24/20 11:59 Last Admin: 09/26/20 19:35 Dose: 5 mg Documented by: Midazolam HCl (Midazolam Bolus From Bag) 2 mg IV Q60M PRN PRN Reason: Sedation Stop: 10/26/20 00:17 Morphine Sulfate (Morphine Sulfate 2 Mg/Ml Carp) 2 mg IV Q4 PRN PRN Reason: Pain Stop: 10/09/20 09:27 Last Admin: 09/25/20 15:49 Dose: 2 mg Documented by: Nutritional Formula (Peptamen Intense Vhp 1.0 Oscar 1,000 Ml Bag) 1,000 ml OG UD COUNT INCLUDES THE [facility]; Protocol Stop: 10/26/20 15:59 Last Admin: 09/26/20 19:36 Dose: 1,000 ml Documented by: Pregabalin (Pregabalin 100 Mg Cap) 100 mg PO TID COUNT INCLUDES THE [facility] Stop: 10/25/20 20:59 Last Admin: 09/26/20 19:35 Dose: 100 mg Documented by: Propofol (Propofol Bolus From Bag) 20 mg IV Q5M PRN PRN Reason: Sedation Stop: 12/25/20 16:30 Sennosides (Sennosides 8.8 Mg/5 Ml Udc) 8.8 mg PO QAM MATHIEU Stop: 10/26/20 10:59 Last Admin: 09/26/20 14:02 Dose: 8.8 mg Documented by: PG Care Time/CCT Total # of Minutes Spent Total Time Spent with Patient: Total time spent is greater than 50% in coordination of care (as documented) at patient's floor/unit and/or counseling patient: Coding Level of Care Code 44906 Subseq Hosp Care Lvl 3 Diagnoses Pneumonia due to COVID-19 virus U07.1; J12.89 Acute respiratory failure with hypoxia J96.01 Acute metabolic encephalopathy G93.41 Acute kidney injury N17.9 Acute on chronic diastolic CHF (congestive heart failure) I50.33 Hyponatremia E87.1 Vitamin D deficiency E55.9 Restrictive lung disease J98.4 GUS on CPAP G47.33; Z99.89 Gout M10.9 Gout site: unspecified site Gout etiology: unspecified cause Chronicity: unspecified BPH with obstruction/lower urinary tract symptoms N40.1; N13.8 Hypertension I10 Hypertension type: essential hypertension Hypothyroidism E03.9 Hypothyroidism type: unspecified Opioid dependence F11.20 Substance use status: uncomplicated Acid reflux K21.9 Esophagitis presence: esophagitis presence not specified DVT prophylaxis Z29.9 Discharge planning issues Z02.9 (1) Gout Gout site: unspecified site Gout etiology: unspecified cause Chronicity: unspecified Qualified Code(s): M10.9 - Gout, unspecified (2) Hypertension Hypertension type: essential hypertension Qualified Code(s): I10 - Essential (primary) hypertension (3) Hypothyroidism Hypothyroidism type: unspecified Qualified Code(s): E03.9 - Hypothyroidism, unspecified (4) Opioid dependence Substance use status: uncomplicated Qualified Code(s): F11.20 - Opioid dependence, uncomplicated (5) Acid reflux Esophagitis presence: esophagitis presence not specified Qualified Code(s): K21.9 - Gastro-esophageal reflux disease without esophagitis
[2020-09-26] MEDS: fentaNYL citrate 2,500 MCG/250 ML BAG IV SCH (23:07)
[2020-09-27] MEDS: METOPROLOL TARTRATE 1 MG/ML VIAL IV SCH ×2 (00:23→06:02)
[2020-09-27] MEDS: propofoL 1,000 MG/100 ML VIAL IV SCH ×7 (01:57→17:36)
[2020-09-27 04:38] LABS: iSTAT Arterial Blood Gas HCO3 26 meg/L (19-24); iSTAT Arterial Blood Gas pCO2 52 mmHg (35-46); iSTAT Arterial Blood Gas pH 7.31 (7.35-7.45); iSTAT Arterial Blood Gas pO2 66 mmHg (80-95); iSTAT Carbon Dioxide 28 mmol/L (24-31); iSTAT FiO2 50 %; iSTAT Site Art Line
[2020-09-27] MEDS: ENOXAPARIN INJ 40 MG/0.4 ML SYR SQ SCH (06:02)
[2020-09-27] MEDS: guaiFENesin SUGAR FREE 100 MG/5 ML UDC PO SCH ×3 (06:02→21:16)
[2020-09-27] MEDS: NOREPINEPHRINE/D5W 8 MG/508 ML BAG IV SCH ×2 (07:18→14:20)
[2020-09-27] MEDS: ALBUT/IPRATROP 3MG/0.5MG NEB 3 ML VIAL NEB SCH ×3 (07:42→22:10)
[2020-09-27 08:24] LABS: Basophils # (auto) 0.03 K/uL (0-0.2); Basophils % (auto) 0.2 %; Eosinophils # (auto) 0.02 K/uL (0-0.5); Eosinophils % (auto) 0.2 %; Hematocrit (blood only) 39.9 % (42-52); Hemoglobin 12.6 g/dL (14.0-18.0); Immature Granulocytes # (auto) 0.57 K/uL (0.00-0.02); Immature Granulocytes % (auto) 4.3 %; Lymphocytes # (auto) 0.76 K/uL (1.2-3.4); Lymphocytes % (auto) 5.8 %; Mean Corpuscular Hemoglobin 28.5 pg (25-34); Mean Corpuscular Hgb Conc 31.6 g/dL (32-36); Mean Corpuscular Volume 90.3 fL (80-100); Monocytes # (auto) 1.68 K/uL (0.11-0.59); Monocytes % (auto) 12.7 %; Neutrophils # (auto) 10.15 K/uL (1.4-6.5); Neutrophils % (auto) 76.8 %; Platelet Count 211 K/uL (130-400); RDW Coefficient of Variation 15.5 % (11.5-14.5); RDW Standard Deviation 51.9 fL (36.4-46.3); Red Blood Count 4.42 M/uL (4.7-6.1); White Blood Count 13.21 K/uL (4.8-10.8)
--- NOTE | 2020-09-27 08:54 | XRay Report ---
XR chest 1V portable CLINICAL HISTORY: Respiratory failure COMPARISON STUDY: 09/26/2020 FINDINGS: There is an endotracheal tube approximately 3 cm above the jake. There is a nasogastric t ube the tip of which is difficult to discern. There is a right internal jugular central venous cathet er unchanged in position There are persistent bilateral pulmonary airspace opacities with perhaps equ ivocal slight improvement within the left upper lung zone. Trace pleural effusions are suspected. IMPRESSION: 1. Persistent bilateral pulmonary airspace opacities with perhaps slight improvement within the left upper lung zone ACT 112: Negative or not required by law. Electronically signed by: Mason Ariza M.D. 09/27/2020 8:52 AM
[2020-09-27] MEDS: PREGABALIN 100 MG CAP PO SCH ×3 (09:01→21:17)
[2020-09-27] MEDS: FAMOTIDINE 20 MG in SYRINGE 3 ML IV SCH ×2 (09:01→21:17)
[2020-09-27] MEDS: allopurinoL 100 MG TAB PO SCH (09:02)
[2020-09-27] MEDS: DOCUSATE SODIUM SYRUP 100 MG/10 ML UDC PO SCH (09:02)
[2020-09-27] MEDS: SENNOSIDES 8.8 MG/5 ML UDC PO SCH (09:02)
[2020-09-27] MEDS: THIAMINE HCL 100 MG in SYRINGE 9 ML IV SCH (09:02)
[2020-09-27] MEDS: dexAMETHasone 6 MG in SYRINGE 0 ML IV SCH (09:03)
[2020-09-27] MEDS: METOPROLOL TARTRATE 25 MG TAB PO SCH ×2 (09:03→21:16)
[2020-09-27 09:04] LABS: Albumin Level 2.1 gm/dl (3.4-5.0); Calcium 9.1 mg/dl (8.5-10.1); Creatinine Clr Calc Pharmacy 44.6 ml/min; Est GFR (African American) 42.6; Est GFR (Non-African American) 36.8; Magnesium 2.4 mg/dl (1.8-2.4)
[2020-09-27 09:06] LABS: Albumin Globulin Ratio 0.5 (0.9-2); Bilirubin,Total 1.3 mg/dl (0.2-1); Globulin 4.6 gm/dl (2.5-4.0); Phosphorus 3.6 mg/dl (2.5-4.9); Total Protein 6.7 gm/dl (6.4-8.2)
[2020-09-27] MEDS ORDERED: ACETAMINOPHEN 1000 MG/100 ML IV IV ONE (10:34)
[2020-09-27] MEDS: KETAMINE HCL / NSS 500 MG/500 ML BAG IV SCH (11:05)
--- NOTE | 2020-09-27 12:19 | Electrocardiogram Report ---
Test Reason : Blood Pressure : / mmHG Vent. Rate : 149 BPM Atrial Rate : 149 BPM P-R Int : 224 ms QRS Dur : 134 ms QT Int : 342 ms P-R-T Axes : 000 039 030 degrees QTc Int : 538 ms Probable Atrial flutter with 2 to 1 block Right bundle branch block Abnormal ECG When compared with ECG of 24-SEP-2020 04:39, HR has increased by 43 bpm Atrial flutter has replaced Sinus rhythm Confirmed by Jc Carbajal ([id number]) on 09/27/2020 12:19:29 PM Referred By: REFERRED SELF Confirmed By:Jc Carbajal
[2020-09-27] MEDS: METOPROLOL TARTRATE 1 MG/ML VIAL IV PRN (12:26)
[2020-09-27] MEDS: cefTRIAXone SODIUM 2,000 MG in DEXTROSE 5% 50 ML IV SCH (12:48)
--- NOTE | 2020-09-27 14:02 | CT Scan Report ---
CT SCAN OF THE BRAIN WITHOUT IV CONTRAST CLINICAL HISTORY: Encephalopathy. COMPARISON STUDY: CT of the brain dated 05/05/2017. TECHNIQUE: Unenhanced axial CT scan of the brain is performed from the vertex to the skull base. A do se lowering technique was utilized adhering to the principles of ALARA. CT DOSE: 823.94 mGycm FINDINGS: An endotracheal tube is noted on the gas meter prover tomogram. Brain parenchyma: There are age-related involutional changes noting mild subcortical and periventric ular microangiopathic change. There is no hemorrhage, mass effect, or evidence of acute territorial i schemia by CT criteria. Aguilera-white matter differentiation is preserved. No extra-axial fluid collecti on is seen. Ventricles, sulci, cisterns: Prominent secondary to involutional change. Intracranial vasculature: There is atherosclerotic calcification of the cavernous carotid arteries. Calvarium: Unremarkable. Sinuses and mastoids: There is mild mucosal thickening within the maxillary antra. No air-fluid level s seen on the left. Mild mucosal thickening is also seen within the ethmoid sinuses. There is trace m ucosal thickening within the frontal and sphenoid sinuses. There is a large left mastoid effusion. Th e right mastoid air cells are well pneumatized. Orbits: The bony orbits are grossly intact. There is a left ocular lens implant. IMPRESSION: There is no hemorrhage, mass effect, or evidence of acute territorial ischemia by CT merlenet payton. ACT 112: Negative or not required by law. Electronically signed by: Lucas Guadalupe M.D. 09/27/2020 2:01 PM
[2020-09-27] MEDS: fentaNYL citrate 2,500 MCG/250 ML BAG IV SCH ×2 (14:20→15:35)
--- NOTE | 2020-09-27 14:39 | Cardiology Consultation ---
Date of Consultation September 27, 2020 Assessment & Plan (1) Atrial flutter: (2) Acute respiratory failure with hypoxia: (3) Pneumonia due to COVID-19 virus: Case discussed with Dr. Henry. Severely ill patient intubated/on ventilator with paroxysmal tachydysrhythmia most likely atrial flutter with 2-1 block. No role for calcium channel boy or usual beta-blockers given his relative hypotension requiring pressor support. Could use esmolol bolus with brief drip if necessary to manage tachydysrhythmia short-term. However, amiodarone infusion is more likely to maintain sinus rhythm without having adverse hemodynamic consequences. No immediate need for anticoagulation, since he has had no prolonged episodes of tachydysrhythmia (greater than 12 hours), would evaluate longer term anticoagulation risk/benefit ratio at the time of discharge. History of Present Illness Reason for Consultation: Atrial flutter Requesting Physician: Saturnino Henry MD Attending Physician: Nathan Beltre DO History of Present Illness 69-year-old man admitted 09/21/2020 with acute hypoxic respiratory failure secondary to COVID-19, developed tachycardia dysrhythmia today which is most likely atrial flutter with 2-1 block. Although his initial ECG on 09/21/2020 was read as sinus tachycardia, in retrospect this may have been atrial flutter as well. In interim ECG on 09/24/2020 shows sinus rhythm with right bundle branch block and bigeminal PVCs. Review of his heart rate pattern shows normal rates her mild tachycardia with intermittent periods of paroxysmal tachycardia in the 130-150 bpm range. Patient is currently intubated/ventilated in the Covid unit and on low-dose norepinephrine for blood pressure support. Allergies Allergy/AdvReac Type Severity Reaction Status Date / Time tetracycline Allergy Unknown SORES IN Verified 09/21/20 22:09 MOUTH aspirin AdvReac Intermediate ulcer Verified 09/21/20 22:09 Home Medications Medication Instructions Recorded Confirmed Type cholecalciferol (vitamin D3) 100 4,000 units PO DAILY 03/09/19 09/21/20 History mcg (4,000 unit) capsule hydrocortisone 1 % topical cream 1 appln TOP TID PRN 03/09/19 09/21/20 History multivitamin 1 tab PO DAILY #30 tab 03/09/19 09/21/20 Rx vitamin B complex 1 cap PO DAILY #30 cap 03/09/19 09/21/20 Rx ferrous sulfate 325 mg (65 mg 325 mg PO DAILY 11/23/19 09/21/20 History iron) tablet allopurinol 100 mg tablet 100 mg PO DAILY #90 tab 12/06/19 09/21/20 Rx levocetirizine 5 mg tablet 5 mg PO DAILY #90 tab 12/07/19 09/21/20 Rx duloxetine 60 mg capsule,delayed 60 mg PO DAILY #90 cap 12/28/19 09/21/20 Rx release metoprolol tartrate 25 mg tablet 25 mg PO BID #180 tab 12/28/19 09/21/20 Rx alfuzosin 10 mg tablet,extended 10 mg PO DAILY #90 tab 05/08/20 09/21/20 Rx release 24 hr levothyroxine 25 mcg tablet 25 mcg PO DAILY #90 tab 06/18/20 09/21/20 Rx pregabalin 100 mg capsule 100 mg PO TID #270 cap 06/19/20 09/21/20 Rx lansoprazole 30 mg capsule,delayed 30 mg PO DAILY #90 cap 07/03/20 09/21/20 Rx release mirabegron 50 mg tablet,extended 50 mg PO DAILY #90 tab 07/30/20 09/21/20 Rx release 24 hr solifenacin 10 mg tablet 10 mg PO DAILY #90 tab 07/30/20 09/21/20 Rx oxycodone-acetaminophen 10 mg-325 1 tab PO TID PRN #90 tab 09/11/20 09/21/20 Rx mg tablet ropinirole 2 mg PO HS 09/21/20 09/21/20 History Patient History Medical History (Updated 09/27/20 @ 14:34 by Jc Carbajal MD) Acute renal insufficiency Anemia Aortic valve sclerosis Arthritis ATN (acute tubular necrosis) BMI 40.0-44.9, adult BPH (benign prostatic hyperplasia) BPH with obstruction/lower urinary tract symptoms Cellulitis Chronic pain of both knees Chronic pain syndrome Erectile dysfunction Fever Foot drop, left Gait disturbance Gout Hepatic steatosis History of dysplastic nevus Hypokalemia Hypotension Irritable bowel syndrome (IBS) Leukocytosis Lower urinary tract symptoms (LUTS) Lumbar spinal stenosis Lumbar spine tumor MGUS (monoclonal gammopathy of unknown significance) Nephrolithiasis Opioid dependence GUS on CPAP Periodic limb movement sleep disorder Pneumonia Restrictive lung disease Sepsis Septic shock Septicemia due to group B Streptococcus SIRS (systemic inflammatory response syndrome) Vitamin D deficiency Surgical History History of arthroscopy of knee right knee History of back surgery remove spinal cord tumor, 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 History of cataract surgery History of hemicolectomy History of lithotripsy renal History of liver biopsy due to elevated LFTs, states that in evidence of damage from heavy metal exposure Family History Diabetes Mother Cardiac disorder Mother Kidney stone Mother Brother Hypertension Mother Blood clots in biliary tract following procedure Father father from embolic stroke after episodes of DVT Social History Smoking Status: Never smoker Age Started Using Tobacco: 17; Age Quit Using Tobacco: 23; packs per day: 1; Years Smoked: 26; Number of Years Since Quit: 35; Second Hand Exposure: No; Hx Alcohol Use: Yes Alcohol type: beer Alcohol Intake Frequency Comment: 2-3 per day Hx Substance Use: No Preferred Language: Malawian Communication Ability: Impaired Visual Impairment: Diminished Hearing Ability: Hard of Hearing Furniture Servicer Required: No Beliefs That Will Affect Care: None marital status: Current Living Situation: Spouse current occupational status: retired 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) Laboratory Results Potassium 4.0, BUN 53, creatinine 1.81. Troponin normal on admission, 0.1 on 09/24 and 0.09 and 0.03 later that day. Diagnostic Findings ECGs as noted in HPI. Chest x-ray today showed persistent bilateral pulmonary airspace opacities. Head CT today was negative. Coding Level of Care Code 92262 Initial Inpt Care Lvl 3 Diagnoses Atrial flutter I48.92 Acute respiratory failure with hypoxia J96.01 Pneumonia due to COVID-19 virus U07.1; J12.89
--- NOTE | 2020-09-27 14:58 | Critical Care Progress Note ---
Date of Service September 27, 2020 Assessment & Plan (1) Acute metabolic encephalopathy: Reason Critically Ill: 69-year-old male with acute hypoxic respiratory failure due to Covid 19 pneumonia, confusion and delirium. Needed to be intubated for agitation encephalopathy and hypoxia on 09/25/2020 Neuro - Metabolic encephalopathymultiple contributing causes this patient currently infected with COVID-19 pneumonia, hypoxic, fevers, polypharmacy, and reported history of delirium on previous hospitalizations. - BUN is unremarkable, ammonia within normal limit, CO2 within normal limits -Patient is drinking alcohol on a daily basis 3 beers a day. DTs could also be playing a role on top of COVID-19 delirium Continue with propofol, fentanyl. Ketamine added 09/26/2020 to try to go down on propofol and fentanyl dose return of midazolam Patient does have history of tracheostomy in the past. Chronic pain and neuropathy On Percocet 10/325 3 times daily as well as Lyrica 100 mg 3 times daily This might be one of the reasons the patient has high tolerance to negatives Lyrica resumed on 09/26/2020 CT head 09/27/2020: -ve for any acute changes. Cardiac - A flutter Patient apparently had a flutter from before Case was discussed with Dr. Carbajal And if it is persistent to start the amiodarone drip. History of diastolic heart failure with last echo in 2014 Continue with diuresis as tolerated Type II DE --> monitor troponin, no ST-T wave changes old right bundle branch block HTNcontinue with blood pressure medication Respiratory - Vent dependent respiratory failure --> acute hypoxic respiratory failure likely secondary to COVID-19 pneumonia and component of diastolic CHF (BNP 7563 on presentation) -Continue with ventilatory support -Keep RASS -1 -Daily sedation holidays and SBT's History of GUS On CPAP 11 cmH2O at home GI - N.p.o. for now while on BiPAP and Precedex drip GERDcontinue famotidine RENAL/LYTES - JERRY:- Gradually improving Creatinine 1.2 at baseline Continue with monitoring BUNs/creatinine Replete electrolytes as per ICU protocol - Foleystrict I's and O's ENDO - No history of diabetes, ICU hyperglycemic protocol Hypothyroidcontinue Synthroid when able HEME - History of anemia, H&H currently stable at this time and no indication for transfusion. Monitor CBCs ID - Procalcitonin 0.14 on 09/24/2020 UA unremarkable and blood cultures negative to date Sputum culture growing group C beta strep as well as staph on 09/26/2020 --Prophylaxis VTE: Lovenox 100mg BID GI: Pepcid Lines: Right IJ 09/25, right radial 09/25, positive Rodriguez, intubated 09/25 Diet: Start feeding Plan: In/out: -710, urine output 2255 AB.31/52/66 on 50% with PEEP of 8, respiratory is increased to 24 Try to wean off ketamine drip. Continue with propofol and fentanyl. JERRY is improving. Hold on Lasix for the time being. Sputum culture is growing staph as well as strep. Nasal MRSA has been ordered. If it is negative we will continue with Rocephin. Patient's mental status is still an issue. CT head was done today which was negative for any acute changes. [phone] was called and updated regarding the current condition of the patient. I have personally spent additional 41 minutes of critical care time in the direct management of this patient. This is a life/limb threatening event. This includes time spent evaluating patient, direct bedside care, chart review, placing orders, interpretation of diagnostic studies, discussion with consultants, patient, and family members, as well as other required patient management activities. This time is exclusive of all separately billable procedures, and teaching time and separate from and in addition to any other critical care service time. Please note the above document was generated using voice recognition software. It may contain grammatical, syntax or spelling errors. (2) Acute on chronic diastolic CHF (congestive heart failure): (3) Acute respiratory failure with hypoxia: (4) Pneumonia due to COVID-19 virus: (5) GUS on CPAP: Admission and Anticipated Discharge Date Admission Date: September 22, 2020 Subjective Patient seen and examined at bedside. No acute distress. Patient still spiking fever T-max 38.5 Was on ketamine, propofol, fentanyl at the time of examination. Was not breathing over the vent. RASS -2 Review of Systems Review of Systems: Unobtainable due to mental health condition, Unobtainable due to cognitive status and Unobtainable due to endotracheal tube Physical Exam Physical Exam: Constitutional: No acute distress HEENT: PERRLA, previous tracheostomy scar, + ETT Respiratory system: Decreased air entry bilaterally, no wheeze, no rhonchi, positive crackles bilaterally CVS: S1-S2 positive, no murmurs or gallops Abdomen: Soft, nontender, nondistended, positive bowel sounds x4 Extremities: +2 pulses bilaterally radialis/ dorsalis pedis, no cyanosis, no edema Neuro: Sedated, + corneal, + gag, + pupillary Psych: Unable to assess G/U: Positive Rodriguez Skin: no rashes, warm and dry Lymphatic: no cervical or axillary lymphadenopathy Results & Data Results & Data ([facility]) Vital Signs (Past 12 Hours) Vital Signs Temp Pulse Resp BP Pulse Ox 09/27/20 12:30 38.5 C H 149 H 117/72 95 09/27/20 12:26 152 H 144/38 H 09/27/20 12:00 38.5 C H 149 H 107/70 95 09/27/20 11:30 38.5 C H 149 H 136/68 95 09/27/20 11:00 38.4 C H 147 H 139/64 98 09/27/20 10:57 141 H 24 93 09/27/20 10:30 38.2 C H 150 H 124/62 92 09/27/20 10:00 38.1 C H 81 117/57 L 91 09/27/20 09:30 38.0 C H 94 H 132/59 L 91 09/27/20 09:13 37.9 C H 115 H 170/76 H 91 09/27/20 09:00 37.9 C H 109 H 120/68 89 L 09/27/20 08:30 37.6 C H 117 H 156/64 H 91 09/27/20 08:00 37.6 C H 102 H 134/62 91 09/27/20 07:43 85 24 92 09/27/20 07:30 37.6 C H 87 157/63 H 93 09/27/20 07:00 37.6 C H 84 152/61 H 94 09/27/20 06:52 37.7 C H 83 149/61 H 94 09/27/20 06:02 86 153/67 H 09/27/20 06:00 37.7 C H 86 153/67 H 93 09/27/20 05:34 38.0 C H 84 134/59 L 88 L 09/27/20 05:30 38.0 C H 81 81 L 09/27/20 05:00 37.9 C H 75 80/41 L 89 L 09/27/20 04:30 37.8 C H 77 86/44 L 90 09/27/20 04:24 24 09/27/20 04:16 81 20 91 09/27/20 04:00 37.7 C H 84 133/59 L 92 09/27/20 03:30 37.7 C H 87 166/67 H 93 09/27/20 03:00 37.7 C H 81 136/66 93 09/27/20 07:53 09/27/20 07:53 Coding Level of Care Code Critical Care 1st 30-74 mins Diagnoses Acute metabolic encephalopathy G93.41 Acute on chronic diastolic CHF (congestive heart failure) I50.33 Acute respiratory failure with hypoxia J96.01 Pneumonia due to COVID-19 virus U07.1; J12.89 GUS on CPAP G47.33; Z99.89 Time Spent (min) 41
[2020-09-27] MEDS: ENOXAPARIN 100 MG/1ML SYR SQ SCH (16:49)
--- NOTE | 2020-09-27 20:56 | Hospitalist Progress Note ---
Date of Service September 27, 2020 Assessment & Plan (1) Pneumonia due to COVID-19 virus: -Dexamethasone 6mg IV daily, day 6 no Remdesivir or plasma as he presented 9 days into illness -Albuterol HFA PRN with acute hypoxic respiratory failure treated with BIPAP, tolerated well initially 09/25: intubated and ventilated management per Dr. Henry (2) Acute respiratory failure with hypoxia: Secondary to Covid-19 PNA, stable with BIPAP on 09/24 however, he deteriorated, required intubation on 09/[address] Henry (3) Acute metabolic encephalopathy: has a history of delirium when hospitalized he drinks at least 3 beers a day. maybe more, so possible that DT's playing a role will need to reassess mental status when we wean back sedation (4) Acute kidney injury: Cr down a little at 1.8, electrolytes stable monitor closely (5) Acute on chronic diastolic CHF (congestive heart failure): related to aortic stenosis lasix given 09/22. still appears euvolemic, use Lasix PRN (6) Hyponatremia: was probably related to CHF - corrected after diuresis. follow per iodically (7) Vitamin D deficiency: -Continue supplementation (8) Restrictive lung disease: fortunately no hypercapnea on ABG (9) GUS on CPAP: Chronic -again fortunately no hypercapnea (10) Gout: Chronic. Stable. 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 No evidence of UTI -Continue alfuzosin -Continue solifenacin (12) Hypertension: BP acceptable for situation. continue metoprolol and follow (13) Hypothyroidism: Chronic. Stable. Last TSH in 10/24 = 3.95 -Continue Synthroid 25mcg po daily (14) Opioid dependence: Patient with chronic pain and neuropathy -Continue Percocet 10/325 TID -Continue Lyrica 100mg po TID -Continue Duloxetine (obviously want to avoid precipitating withdrawal) giving Morphine to prevent further withdrawal symptoms (15) Acid reflux: Chronic. Stable -Pepcid 20mg IV BID - may have effect on disease severity in Covid-19 (16) DVT prophylaxis: lovenox Admission and Anticipated Discharge Date Admission Date: September 22, 2020 Subjective patient on fentanyl having some atrial flutter with 2:1 conduction, appreciate cardiology consult, would use Amiodarone short term on 50% FiO2 requiring some Levophed for blood pressure support Cr down to 1.8 Review of Systems Review of Systems: Unobtainable due to endotracheal tube and Unobtainable due to reduced consciousness Physical Exam Constitutional: well developed, + ill appearing, + morbidly obese and + mechanically ventilated; no acute distress Neck: trachea midline and + thick neck Respiratory: + tachypneic and symmetric chest movement (on ventilator) Auscultation: lungs clear to auscultation bilaterally Cardiovascular: Rate/Rhythm: regular rate and regular rhythm Heart Sounds: normal S1 and normal S2; no murmur Extremities: normal capillary refill; no edema Gastrointestinal (Abdomen): normal bowel sounds, soft, nontender, no hepatosplenomegaly Skin: no rashes, warm and dry Neurologic: CN's II-XI intact bilaterally and + obtunded; no focal motor deficits Psychiatric: Orientation: + not alert Lymphatic: no cervical or axillary lymphadenopathy Results & Data Results & Data ([facility]) Vital Signs (Past 12 Hours) Vital Signs Temp Pulse Pulse Resp BP Pulse Ox 09/27/20 20:30 37.3 C 69 136/58 L 94 09/27/20 20:00 37.3 C 71 131/56 L 94 09/27/20 19:30 37.4 C 71 131/55 L 94 09/27/20 19:07 73 24 94 09/27/20 19:00 37.5 C 75 134/58 L 95 09/27/20 18:30 37.5 C 72 124/53 L 94 09/27/20 18:00 37.4 C 77 134/58 L 94 09/27/20 17:30 37.5 C 77 141/60 H 94 09/27/20 17:00 37.6 C H 77 111/48 L 93 09/27/20 16:30 37.7 C H 79 134/57 L 93 09/27/20 16:06 73 09/27/20 16:05 73 24 94 09/27/20 16:00 37.8 C H 72 128/56 L 94 09/27/20 15:44 37.8 C H 74 82/41 L 92 09/27/20 15:30 37.8 C H 79 142/64 H 94 09/27/20 15:00 37.8 C H 80 157/70 H 94 09/27/20 14:30 38.0 C H 82 159/67 H 94 09/27/20 14:16 38.2 C H 79 121/55 L 90 09/27/20 13:00 38.5 C H 101 H 129/51 L 95 09/27/20 12:30 38.5 C H 149 H 117/72 95 09/27/20 12:26 152 H 144/38 H 09/27/20 12:00 38.5 C H 149 H 107/70 95 09/27/20 11:30 38.5 C H 149 H 136/68 95 09/27/20 11:00 38.4 C H 147 H 139/64 98 09/27/20 10:57 141 H 24 93 09/27/20 10:30 38.2 C H 150 H 124/62 92 09/27/20 10:00 38.1 C H 81 117/57 L 91 09/27/20 09:30 38.0 C H 94 H 132/59 L 91 09/27/20 09:13 37.9 C H 115 H 170/76 H 91 09/27/20 09:00 37.9 C H 109 H 120/68 89 L Laboratory Results Laboratory Results - last 24 hr 09/27/20 09/27/20 09/27/20 04:23 07:53 07:53 WBC 13.21 H RBC 4.42 L Hgb 12.6 L Hct 39.9 L MCV 90.3 MCH 28.5 MCHC 31.6 L RDW Std Deviation 51.9 H RDW Coeff of Bisi 15.5 H Plt Count 211 MPV 11.0 H Immature Gran % (Auto) 4.3 Neut % (Auto) 76.8 Lymph % (Auto) 5.8 Petroleum % (Auto) 12.7 Eos % (Auto) 0.2 Baso % (Auto) 0.2 Neut # (Auto) 10.15 H Lymph # (Auto) 0.76 L Petroleum # (Auto) 1.68 H Eos # (Auto) 0.02 Baso # (Auto) 0.03 Immature Gran # (Auto) 0.57 H Sample Site Art Line POC pH 7.31 L POC pCO2 52 H POC pO2 66 L POC HCO3 26 H POC Total CO2 28 POC Base Excess 0.0 POC ABG O2 Sat 90.0 Jean Claude Test NA O2 Delivery Device Ventilator POC O2 Rate 20 Minute Ventilation 8.0 POC FiO2 50 Tidal Volume 400 PEEP 8 Sodium 145 Potassium 4.0 Chloride 112 H Carbon Dioxide 26 Anion Gap 7.0 BUN 53 H Creatinine 1.81 H Est Cr Clr Drug Dosing 44.6 Est GFR ( Amer) 42.6 Est GFR (Non-Af Amer) 36.8 BUN/Creatinine Ratio 29.0 H Glucose 90 Calcium 9.1 Phosphorus 3.6 Magnesium 2.4 Total Bilirubin 1.3 H AST 20 ALT 26 Alkaline Phosphatase 76 Total Protein 6.7 Albumin 2.1 L Globulin 4.6 H Albumin/Globulin Ratio 0.5 L Nasal Screen MRSA (PCR) 09/27/20 15:40 WBC RBC Hgb Hct MCV MCH MCHC RDW Std Deviation RDW Coeff of Bisi Plt Count MPV Immature Gran % (Auto) Neut % (Auto) Lymph % (Auto) Petroleum % (Auto) Eos % (Auto) Baso % (Auto) Neut # (Auto) Lymph # (Auto) Petroleum # (Auto) Eos # (Auto) Baso # (Auto) Immature Gran # (Auto) Sample Site POC pH POC pCO2 POC pO2 POC HCO3 POC Total CO2 POC Base Excess POC ABG O2 Sat Jean Claude Test O2 Delivery Device POC O2 Rate Minute Ventilation POC FiO2 Tidal Volume PEEP Sodium Potassium Chloride Carbon Dioxide Anion Gap BUN Creatinine Est Cr Clr Drug Dosing Est GFR ( Amer) Est GFR (Non-Af Amer) BUN/Creatinine Ratio Glucose Calcium Phosphorus Magnesium Total Bilirubin AST ALT Alkaline Phosphatase Total Protein Albumin Globulin Albumin/Globulin Ratio Nasal Screen MRSA (PCR) Positive A Medications Administered Current Inpatient Medications Albuterol (Albuterol Hfa 8 Gm Inhaler) 2 puffs INH Q4H PRN PRN Reason: Shortness Of Breath Stop: 10/22/20 01:56 Albuterol (Albut/Ipratrop 3mg/0.5mg Neb 3 Ml Vial) 3 ml NEB Q8R [facility] Stop: 10/27/20 14:59 Last Admin: 09/27/20 16:11 Dose: 3 ml Documented by: Allopurinol (Allopurinol 100 Mg Tab) 100 mg PO DAILY MATHIEU Stop: 10/25/20 17:44 Last Admin: 09/27/20 09:02 Dose: 100 mg Documented by: Clonazepam (Clonazepam 0.25 Mg Tab) 0.25 mg PO BID [facility] Stop: 10/27/20 20:59 Docusate Sodium (Docusate Sodium Syrup 100 Mg/10 Ml Udc) 100 mg PO QAM [facility] Stop: 10/26/20 10:59 Last Admin: 09/27/20 09:02 Dose: 100 mg Documented by: Enoxaparin Sodium (Enoxaparin 100 Mg/1ml Syr) 100 mg SQ BID@0600,1800 [facility] Stop: 10/27/20 17:59 Last Admin: 09/27/20 16:49 Dose: 100 mg Documented by: Fentanyl Citrate (Fentanyl Bolus From Bag) 50 mcg IV Q60M PRN PRN Reason: Pain or Agitation Stop: 10/09/20 16:31 Last Admin: 09/27/20 10:26 Dose: 50 mcg Documented by: Guaifenesin (Guaifenesin Sugar Free 100 Mg/5 Ml Udc) 100 mg PO Q8H [facility] Stop: 10/25/20 20:14 Last Admin: 09/27/20 12:25 Dose: 100 mg Documented by: Heparin Sodium (Beef Lung) (Heparin 10 Unit/Ml 5 Ml Flush) 5 ml FLUSH PRN PRN PRN Reason: Flush Stop: 10/25/20 22:45 Hydralazine HCl (Hydralazine Hcl 20 Mg/Ml Vial) 10 mg IV Q6 PRN PRN Reason: Hypertension Stop: 10/24/20 18:54 Last Admin: 09/25/20 14:43 Dose: 10 mg Documented by: Dexamethasone 6 mg/ Syringe 1.5 mls @ 1 mls/min IV DAILY [facility] Stop: 10/02/20 08:59 Last Admin: 09/27/20 09:03 Dose: 1 mls/min Documented by: Famotidine 20 mg/ Syringe 5 mls @ 2.5 mls/min IV BID [facility] Stop: 10/22/20 08:59 Last Admin: 09/27/20 09:01 Dose: 2.5 mls/min Documented by: Thiamine HCl 100 mg/ Syringe 10 mls @ 2 mls/min IV QAM [facility] Stop: 10/24/20 08:59 Last Admin: 09/27/20 09:02 Dose: 2 mls/min Documented by: Propofol (Diprivan) 1,000 mg in 100 mls @ 9.83 mls/hr IV .[id number] [facility]; Protocol Stop: 09/28/20 16:44 Last Admin: 09/27/20 17:36 Dose: Not Given Documented by: Norepinephrine Bitartrate (Levophed/D5w) 8 mg in 508 mls @ 20.807 mls/hr IV .Q24H MATHIEU; Protocol Stop: 10/26/20 02:29 Last Titration: 09/27/20 17:16 Dose: 0.02 mcg/kg/min, 8.3 mls/hr Documented by: Ketamine HCl (Ketalar / Nss) 500 mg in 500 mls @ 10.71 mls/hr IV .Q24H MATHIEU; Protocol Stop: 10/26/20 10:59 Last Admin: 09/27/20 11:05 Dose: Not Given Documented by: Ceftriaxone Sodium 2,000 mg/ (Dextrose) 70 mls @ 100 mls/hr IV DAILY@1200 MATHIEU; Protocol Stop: 10/03/20 14:29 Last Infusion: 09/27/20 14:21 Dose: Infused Documented by: Fentanyl Citrate (Fentanyl Citrate) 2,500 mcg in 250 mls @ 15 mls/hr IV .[id number] [facility]; Protocol Stop: 10/10/20 15:29 Last Titration: 09/27/20 17:16 Dose: 150 mcg/hr, 15 mls/hr Documented by: Acetaminophen (Ofirmev) 1,000 mg in 100 mls @ 400 mls/hr IV Q8H PRN PRN Reason: Fever or headache Stop: 09/30/20 10:37 Levothyroxine Sodium (Levothyroxine Sodium 25 Mcg Tablet) 25 mcg PO DAILYBB [facility] Stop: 10/28/20 06:29 Metoprolol Tartrate (Metoprolol Tartrate 25 Mg Tab) 25 mg PO BID [facility] Stop: 10/27/20 08:59 Last Admin: 09/27/20 09:03 Dose: 25 mg Documented by: Metoprolol Tartrate (Metoprolol Tartrate 1 Mg/Ml Vial) 5 mg IV Q6 PRN PRN Reason: SBP>160 Stop: 10/24/20 11:59 Last Admin: 09/27/20 12:26 Dose: 5 mg Documented by: Multivitamins/Minerals (Multi Vit W/Minerals Liquid 15 Ml Udp) 15 ml PO QAM [facility] Stop: 10/28/20 08:59 Nutritional Formula (Peptamen Intense Vhp 1.0 Oscar 1,000 Ml Bag) 1,000 ml OG UD [facility]; Protocol Stop: 10/26/20 15:59 Last Admin: 09/26/20 19:36 Dose: 1,000 ml Documented by: Pregabalin (Pregabalin 100 Mg Cap) 100 mg PO TID [facility] Stop: 10/25/20 20:59 Last Admin: 09/27/20 14:21 Dose: 100 mg Documented by: Propofol (Propofol Bolus From Bag) 20 mg IV Q5M PRN PRN Reason: Sedation Stop: 09/28/20 16:30 Last Admin: 09/27/20 10:26 Dose: 20 mg Documented by: Sennosides (Sennosides 8.8 Mg/5 Ml Udc) 8.8 mg PO QAM [facility] Stop: 10/26/20 10:59 Last Admin: 09/27/20 09:02 Dose: 8.8 mg Documented by: PG Care Time/CCT Total # of Minutes Spent Total Time Spent with Patient: Total time spent is greater than 50% in coordination of care (as documented) at patient's floor/unit and/or counseling patient: Coding Level of Care Code 05267 Subseq Hosp Care Lvl 2 Diagnoses Pneumonia due to COVID-19 virus U07.1; J12.89 Acute respiratory failure with hypoxia J96.01 Acute metabolic encephalopathy G93.41 Acute kidney injury N17.9 Acute on chronic diastolic CHF (congestive heart failure) I50.33 Hyponatremia E87.1 Vitamin D deficiency E55.9 Restrictive lung disease J98.4 GUS on CPAP G47.33; Z99.89 Gout M10.9 Chronicity: unspecified Gout etiology: unspecified cause Gout site: unspecified site BPH with obstruction/lower urinary tract symptoms N40.1; N13.8 Hypertension I10 Hypertension type: essential hypertension Hypothyroidism E03.9 Hypothyroidism type: unspecified Opioid dependence F11.20 Substance use status: uncomplicated Acid reflux K21.9 Esophagitis presence: esophagitis presence not specified DVT prophylaxis Z29.9 (1) Opioid dependence Substance use status: uncomplicated Qualified Code(s): F11.20 - Opioid dependence, uncomplicated (2) Gout Chronicity: unspecified Gout etiology: unspecified cause Gout site: unspecified site Qualified Code(s): M10.9 - Gout, unspecified (3) Hypothyroidism Hypothyroidism type: unspecified Qualified Code(s): E03.9 - Hypothyroidism, unspecified (4) Acid reflux Esophagitis presence: esophagitis presence not specified Qualified Code(s): K21.9 - Gastro-esophageal reflux disease without esophagitis (5) Hypertension Hypertension type: essential hypertension Qualified Code(s): I10 - Essential (primary) hypertension
[2020-09-27] MEDS: clonazePAM 0.25 MG TAB PO SCH (21:16)
[2020-09-28] MEDS: propofoL 1,000 MG/100 ML VIAL IV SCH ×6 (01:19→21:36)
[2020-09-28] MEDS: guaiFENesin SUGAR FREE 100 MG/5 ML UDC PO SCH ×3 (05:06→20:38)
[2020-09-28] MEDS: ENOXAPARIN 100 MG/1ML SYR SQ SCH ×2 (05:54→18:42)
[2020-09-28] MEDS: LEVOTHYROXINE SODIUM 25 MCG TABLET PO SCH (05:55)
[2020-09-28 06:58] LABS: Hematocrit (blood only) 38.3 % (42-52); Hemoglobin 12.1 g/dL (14.0-18.0); Mean Corpuscular Hemoglobin 28.7 pg (25-34); Mean Corpuscular Hgb Conc 31.6 g/dL (32-36); Mean Platelet Volume 11.1 fL (7.4-10.4); Platelet Count 190 K/uL (130-400); RDW Coefficient of Variation 15.4 % (11.5-14.5); RDW Standard Deviation 51.9 fL (36.4-46.3); Red Blood Count 4.21 M/uL (4.7-6.1); White Blood Count 12.69 K/uL (4.8-10.8)
[2020-09-28 06:59] LABS: HCO3 ABG 26 mmol/L (19-24); Oxygen Saturation ABG 93.5 % (90-95); PCO2 ABG 45 mmHg (35-46); PO2 ABG 68 mmHg (80-95); pH ABG 7.38 (7.35-7.45)
[2020-09-28 07:00] LABS: Allen Test Pos (Pos)
[2020-09-28 07:36] LABS: ALC (manual) 0.22 K/uL (1.2-3.4); ANC (manual) 9.86 K/uL (1.4-6.5); Basophilic Stippling 1+; Eosinophils # (manual) 0.33 K/uL (0-0.5); Eosinophils % (manual) 2.6 %; Lymphocytes # (manual) 0.22 K/uL (1.2-3.4); Lymphocytes % (manual) 1.7 %; Metamyelocytes # (manual) 0.22 K/uL (0-0); Metamyelocytes % (manual) 1.7 %; Monocytes # (manual) 1.95 K/uL (0.11-0.59); Monocytes % (manual) 15.4 %; Myelocytes # (manual) 0.11 K/uL (0-0); Myelocytes % (manual) 0.9 %; Neutrophils # (manual) 9.86 K/uL (1.4-6.5); Neutrophils % (manual) 77.7 %; Toxic Granulation 1+; Toxic Vacuolation 1+
[2020-09-28 07:38] LABS: BUN Creatinine Ratio 40.3 (10-20); Calcium 8.6 mg/dl (8.5-10.1); Creatinine Clr Calc Pharmacy 59.9 ml/min; Est GFR (African American) 60.2; Magnesium 2.7 mg/dl (1.8-2.4); Potassium 4.2 mmol/L (3.5-5.1)
[2020-09-28 07:39] LABS: Phosphorus 2.2 mg/dl (2.5-4.9)
[2020-09-28] MEDS: ALBUT/IPRATROP 3MG/0.5MG NEB 3 ML VIAL NEB SCH ×2 (07:41→16:14)
[2020-09-28] MEDS: PREGABALIN 100 MG CAP PO SCH ×3 (08:17→20:38)
[2020-09-28] MEDS: clonazePAM 0.25 MG TAB PO SCH ×2 (08:17→20:48)
[2020-09-28] MEDS: FAMOTIDINE 20 MG in SYRINGE 3 ML IV SCH ×2 (08:17→20:38)
[2020-09-28] MEDS: THIAMINE HCL 100 MG in SYRINGE 9 ML IV SCH (08:17)
[2020-09-28] MEDS: dexAMETHasone 6 MG in SYRINGE 0 ML IV SCH (08:18)
[2020-09-28] MEDS: allopurinoL 100 MG TAB PO SCH (08:18)
[2020-09-28] MEDS: SENNOSIDES 8.8 MG/5 ML UDC PO SCH (08:19)
[2020-09-28] MEDS: DOCUSATE SODIUM SYRUP 100 MG/10 ML UDC PO SCH (08:19)
[2020-09-28] MEDS ORDERED: POTASSIUM PHOS 3 MMOL/1 ML INFUSION IV STA (08:21)
[2020-09-28] MEDS ORDERED: POTASSIUM PHOSPHATE 15 MMOL in SODIUM CHLORIDE 0.9% 250 ML IV ONE (09:00)
[2020-09-28] MEDS: fentaNYL citrate 2,500 MCG/250 ML BAG IV SCH (09:14)
[2020-09-28] MEDS: DOXYCYCLINE HYCLATE 100 MG CAP PO SCH ×2 (09:55→20:38)
[2020-09-28] MEDS: METOPROLOL TARTRATE 25 MG TAB PO SCH ×2 (09:55→20:38)
[2020-09-28] MEDS: MULTI VIT W/MINERALS LIQUID 15 ML UDP PO SCH (09:55)
[2020-09-28] MEDS: KETAMINE HCL / NSS 500 MG/500 ML BAG IV SCH (11:37)
[2020-09-28] MEDS: cefTRIAXone SODIUM 2,000 MG in DEXTROSE 5% 50 ML IV SCH (11:59)
--- NOTE | 2020-09-28 12:54 | Critical Care Progress Note ---
Date of Service September 28, 2020 Assessment & Plan (1) Acute metabolic encephalopathy: Reason Critically Ill: 69-year-old male with acute hypoxic respiratory failure due to Covid 19 pneumonia, confusion and delirium. Needed to be intubated for agitation encephalopathy and hypoxia on 09/25/2020 Neuro - Metabolic encephalopathymultiple contributing causes this patient currently infected with COVID-19 pneumonia, hypoxic, fevers, polypharmacy, and reported history of delirium on previous hospitalizations. - BUN is unremarkable, ammonia within normal limit, CO2 within normal limits -Patient is drinking alcohol on a daily basis 3 beers a day. DTs could also be playing a role on top of COVID-19 delirium Continue with propofol, fentanyl. Patient does have history of tracheostomy in the past. Chronic pain and neuropathy On Percocet 10/325 3 times daily as well as Lyrica 100 mg 3 times daily This might be one of the reasons the patient has high tolerance to negatives Lyrica resumed on 09/26/2020 CT head 09/27/2020: -ve for any acute changes. Cardiac - A flutter Patient apparently had a flutter from before Case was discussed with Dr. Carbajal And if it is persistent to start the amiodarone drip On therapeutic anticoagulation. History of diastolic heart failure with last echo in 2014 Continue with diuresis as tolerated Type II MD --> monitor troponin, no ST-T wave changes old right bundle branch block HTN Respiratory - Vent dependent respiratory failure --> acute hypoxic respiratory failure likely secondary to COVID-19 pneumonia and component of diastolic CHF (BNP 7563 on presentation) -Continue with ventilatory support -Keep RASS -1 History of GUS On CPAP 11 cmH2O at home GI - N.p.o. for now while on BiPAP and Precedex drip GERDcontinue famotidine RENAL/LYTES - JERRY:- Gradually improving Creatinine 1.2 at baseline Continue with monitoring BUNs/creatinine Replete electrolytes as per ICU protocol - Foleystrict I's and O's ENDO - No history of diabetes, ICU hyperglycemic protocol Hypothyroidcontinue Synthroid when able HEME - History of anemia, H&H currently stable at this time and no indication for transfusion. Monitor CBCs ID - Procalcitonin 0.14 on 09/24/2020 UA unremarkable and blood cultures negative to date Sputum culture growing group C beta strep as well as MRSA on 09/26/2020 Nasal MRSA positive --Prophylaxis VTE: Lovenox 100mg BID GI: Pepcid Lines: Right IJ 09/25, right radial 09/25, positive Rodriguez, intubated 09/25 Diet: Tube feeding Plan: In/out: +411, urine output 1130 AB.38/45/68 on 50% Monitor in and out. If the patient is not not euvolemic to negative balance later today we will give a dose of Lasix. Patient is nasal MRSA is positive as well as sputum is growing MRSA. Doxycycline added on top of Rocephin. Try to titrate off sedation as much as possible. If need be can even discontinue to see if the patient is responding or not. Hypophosphatemia being replaced [phone] I have personally spent additional 38 minutes of critical care time in the direct management of this patient. This is a life/limb threatening event. This includes time spent evaluating patient, direct bedside care, chart review, placing orders, interpretation of diagnostic studies, discussion with consultants, patient, and family members, as well as other required patient management activities. This time is exclusive of all separately billable procedures, and teaching time and separate from and in addition to any other critical care service time. Please note the above document was generated using voice recognition software. It may contain grammatical, syntax or spelling errors. (2) Acute on chronic diastolic CHF (congestive heart failure): (3) Acute respiratory failure with hypoxia: (4) Pneumonia due to COVID-19 virus: (5) GUS on CPAP: Admission and Anticipated Discharge Date Admission Date: September 22, 2020 Subjective Patient seen and examined at bedside. No acute distress, no adverse events overnight. Patient is on low-dose propofol and fentanyl at the time of examination. He is breathing with the vent. Saturating 93%. Patient opens eyes to deep stimulation but does not follow command track Review of Systems Review of Systems: Unobtainable due to mental health condition and Unobtainable due to endotracheal tube Physical Exam Physical Exam: Constitutional: No acute distress HEENT: PERRLA, previous tracheostomy scar, + ETT Respiratory system: Decreased air entry bilaterally, no wheeze, no rhonchi, positive crackles bilaterally CVS: S1-S2 positive, no murmurs or gallops Abdomen: Soft, nontender, nondistended, positive bowel sounds x4 Extremities: +2 pulses bilaterally radialis/ dorsalis pedis, no cyanosis, no edema Neuro: + corneal, + gag, + pupillary RASS -2 Psych: Unable to assess G/U: Positive Rodriguez Skin: no rashes, warm and dry Lymphatic: no cervical or axillary lymphadenopathy Results & Data Results & Data ([facility]) Vital Signs (Past 12 Hours) Vital Signs Temp Pulse Resp BP Pulse Ox 09/28/20 11:15 70 24 91 09/28/20 10:00 37.8 C H 76 128/54 L 86 L 09/28/20 09:00 37.7 C H 84 140/59 L 86 L 09/28/20 07:41 67 24 92 09/28/20 07:26 65 09/28/20 07:00 37.5 C 67 126/56 L 91 09/28/20 06:00 37.4 C 65 130/55 L 92 09/28/20 05:30 37.4 C 66 137/58 L 91 09/28/20 05:00 37.4 C 65 130/56 L 92 09/28/20 04:30 37.4 C 65 126/54 L 89 L 09/28/20 04:00 37.3 C 67 132/58 L 90 09/28/20 03:39 66 24 93 09/28/20 03:30 37.3 C 64 149/63 H 94 09/28/20 03:00 37.2 C 64 135/57 L 94 09/28/20 02:30 37.2 C 63 130/54 L 94 09/28/20 02:00 37.2 C 63 127/55 L 94 09/28/20 01:30 37.2 C 64 132/56 L 94 09/28/20 01:00 37.2 C 63 123/53 L 94 09/28/20 06:42 09/28/20 06:42 Coding Level of Care Code Critical Care 1st 30-74 mins Diagnoses Acute metabolic encephalopathy G93.41 Acute on chronic diastolic CHF (congestive heart failure) I50.33 Acute respiratory failure with hypoxia J96.01 Pneumonia due to COVID-19 virus U07.1; J12.89 GUS on CPAP G47.33; Z99.89 Time Spent (min) 38
[2020-09-28] MEDS: ACETAMINOPHEN 1,000 MG/100 ML VIAL IV PRN ×2 (13:56→23:14)
--- NOTE | 2020-09-28 17:17 | Hospitalist Progress Note ---
Date of Service September 28, 2020 Assessment & Plan (1) Pneumonia due to COVID-19 virus: -Dexamethasone 6mg IV daily, day 7 no Remdesivir or plasma as he presented 9 days into illness -Albuterol HFA PRN with acute hypoxic respiratory failure treated with BIPAP, tolerated well initially 09/25: intubated and ventilated management per Dr. Henry (2) Acute respiratory failure with hypoxia: Secondary to Covid-19 PNA, stable with BIPAP on 09/24 however, he deteriorated, required intubation on 09/[address] Henry (3) Acute metabolic encephalopathy: has a history of delirium when hospitalized he drinks at least 3 beers a day. maybe more, so possible that DT's playing a role will need to reassess mental status when we wean back sedation currently on Propofol and fentanyl Lyrica added as he takes chronically (4) Acute kidney injury: Cr down to 1.36, electrolytes stable making adequate urine, use Lasix PRN for negative fluid balance (5) Acute on chronic diastolic CHF (congestive heart failure): related to aortic stenosis lasix given 09/22. still appears euvolemic, use Lasix PRN for negative fluid balance (6) Hyponatremia: was probably related to CHF - corrected after diuresis. follow periodically (7) Vitamin D deficiency: -Continue supplementation (8) Restrictive lung disease: fortunately no hypercapnea on ABG (9) GUS on CPAP: Chronic -again fortunately no hypercapnea (10) Gout: Chronic. Stable. 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 No evidence of UTI -Continue alfuzosin -Continue solifenacin (12) Hypertension: BP acceptable for situation. continue metoprolol and follow (13) Hypothyroidism: Chronic. Stable. Last TSH in 10/24 = 3.95 -Continue Synthroid 25mcg po daily (14) Opioid dependence: Patient with chronic pain and neuropathy -Continue Lyrica 100mg po TID giving Morphine to prevent further withdrawal symptoms (15) Acid reflux: Chronic. Stable -Pepcid 20mg IV BID - may have effect on disease severity in Covid-19 (16) DVT prophylaxis: lovenox (17) Atrial flutter: intermittent, use Amiodarone if needed (18) MRSA (methicillin resistant staphylococcus aureus) pneumonia: MRSA nasal swab positive add Doxycycline to Rocephin for antibiotic coverage Admission and Anticipated Discharge Date Admission Date: September 22, 2020 Subjective patient with low grade temperature sedated with Propofol and fentanyl sputum culture with MRSA, added Doxycycline to Rocephin Review of Systems Review of Systems: Unobtainable due to endotracheal tube and Unobtainable due to reduced consciousness Physical Exam Constitutional: well developed, + ill appearing, + morbidly obese and + mechanically ventilated; no acute distress Neck: trachea midline and + thick neck Respiratory: + tachypneic and symmetric chest movement (on ventilator) Auscultation: lungs clear to auscultation bilaterally Cardiovascular: Rate/Rhythm: regular rate and regular rhythm Heart Sounds: normal S1 and normal S2; no murmur Extremities: normal capillary refill; no edema Gastrointestinal (Abdomen): normal bowel sounds, soft, nontender, no hepatosplenomegaly Musculoskeletal: no cyanosis or clubbing, extremities motor strength 5/5 Skin: no rashes, warm and dry Neurologic: CN's II-XI intact bilaterally and + obtunded; no focal motor deficits Psychiatric: Orientation: + not alert Lymphatic: no cervical or axillary lymphadenopathy Results & Data Results & Data ([facility]) Vital Signs (Past 12 Hours) Vital Signs Temp Pulse Resp BP Pulse Ox 09/28/20 14:00 38.2 C H 69 131/57 L 92 09/28/20 13:00 38.2 C H 69 132/59 L 94 09/28/20 12:00 38.1 C H 69 132/57 L 92 09/28/20 11:15 70 24 91 09/28/20 11:00 37.9 C H 72 126/56 L 90 09/28/20 10:00 37.8 C H 76 128/54 L 86 L 09/28/20 09:00 37.7 C H 84 140/59 L 86 L 09/28/20 07:41 67 24 92 09/28/20 07:26 65 09/28/20 07:00 37.5 C 67 126/56 L 91 09/28/20 06:00 37.4 C 65 130/55 L 92 09/28/20 05:30 37.4 C 66 137/58 L 91 Laboratory Results Laboratory Results - last 24 hr 09/28/20 09/28/20 09/28/20 06:42 06:42 06:42 WBC 12.69 H RBC 4.21 L Hgb 12.1 L Hct 38.3 L MCV 91.0 MCH 28.7 MCHC 31.6 L RDW Std Deviation 51.9 H RDW Coeff of Bisi 15.4 H Plt Count 190 MPV 11.1 H Neutrophils % (Manual) 77.7 Lymphocytes % (Manual) 1.7 Monocytes % (Manual) 15.4 Eosinophils % (Manual) 2.6 Metamyelocytes % (Man) 1.7 Myelocytes % (Man) 0.9 Neutrophils # (Manual) 9.86 H Total Absolute Neuts 9.86 H Lymphocytes # (Manual) 0.22 L Total Abs Lymphocytes 0.22 L Monocytes # (Manual) 1.95 H Eosinophils # (Manual) 0.33 Metamyelocytes # (Man) 0.22 H Myelocytes # (Manual) 0.11 H Toxic Granulation 1+ Toxic Vacuolation 1+ Basophilic Stippling 1+ ABG pH 7.38 ABG pCO2 45 ABG pO2 68 L ABG HCO3 26 H ABG O2 Saturation 93.5 ABG Base Excess 1.0 Jean Claude Test Pos Barometric Pressure 723.4 Oxygen Given 6 Sodium 144 Potassium 4.2 Chloride 114 H Carbon Dioxide 28 Anion Gap 2.0 L BUN 55 H Creatinine 1.36 D Est Cr Clr Drug Dosing 59.9 Est GFR ( Amer) 60.2 Est GFR (Non-Af Amer) 52.0 BUN/Creatinine Ratio 40.3 H Glucose 95 Calcium 8.6 Phosphorus 2.2 L D Magnesium 2.7 H Medications Administered Current Inpatient Medications Albuterol (Albuterol Hfa 8 Gm Inhaler) 2 puffs INH Q4H PRN PRN Reason: Shortness Of Breath Stop: 10/22/20 01:56 Albuterol (Albut/Ipratrop 3mg/0.5mg Neb 3 Ml Vial) 3 ml NEB Q8R [facility] Stop: 10/27/20 14:59 Last Admin: 09/28/20 16:14 Dose: 3 ml Documented by: Allopurinol (Allopurinol 100 Mg Tab) 100 mg PO DAILY [facility] Stop: 10/25/20 17:44 Last Admin: 09/28/20 08:18 Dose: 100 mg Documented by: Clonazepam (Clonazepam 0.25 Mg Tab) 0.25 mg PO BID [facility] Stop: 10/27/20 20:59 Last Admin: 09/28/20 08:17 Dose: 0.25 mg Documented by: Docusate Sodium (Docusate Sodium Syrup 100 Mg/10 Ml Udc) 100 mg PO QAM [facility] Stop: 10/26/20 10:59 Last Admin: 09/28/20 08:19 Dose: 100 mg Documented by: Doxycycline Hyclate (Doxycycline Hyclate 100 Mg Cap) 100 mg PO BID [facility] Stop: 10/03/20 08:59 Last Admin: 09/28/20 09:55 Dose: 100 mg Documented by: Enoxaparin Sodium (Enoxaparin 100 Mg/1ml Syr) 100 mg SQ BID@0600,1800 [facility] Stop: 10/27/20 17:59 Last Admin: 09/28/20 05:54 Dose: 100 mg Documented by: Fentanyl Citrate (Fentanyl Bolus From Bag) 50 mcg IV Q60M PRN PRN Reason: Pain or Agitation Stop: 10/09/20 16:31 Last Admin: 09/27/20 10:26 Dose: 50 mcg Documented by: Guaifenesin (Guaifenesin Sugar Free 100 Mg/5 Ml Udc) 100 mg PO Q8H [facility] Stop: 10/25/20 20:14 Last Admin: 09/28/20 12:01 Dose: 100 mg Documented by: Heparin Sodium (Beef Lung) (Heparin 10 Unit/Ml 5 Ml Flush) 5 ml FLUSH PRN PRN PRN Reason: Flush Stop: 10/25/20 22:45 Hydralazine HCl (Hydralazine Hcl 20 Mg/Ml Vial) 10 mg IV Q6 PRN PRN Reason: Hypertension Stop: 10/24/20 18:54 Last Admin: 09/25/20 14:43 Dose: 10 mg Documented by: Dexamethasone 6 mg/ Syringe 1.5 mls @ 1 mls/min IV DAILY [facility] Stop: 10/02/20 08:59 Last Admin: 09/28/20 08:18 Dose: 1 mls/min Documented by: Famotidine 20 mg/ Syringe 5 mls @ 2.5 mls/min IV BID [facility] Stop: 10/22/20 08:59 Last Admin: 09/28/20 08:17 Dose: 2.5 mls/min Documented by: Thiamine HCl 100 mg/ Syringe 10 mls @ 2 mls/min IV QAM [facility] Stop: 10/24/20 08:59 Last Admin: 09/28/20 08:17 Dose: 2 mls/min Documented by: Norepinephrine Bitartrate (Levophed/D5w) 8 mg in 508 mls @ 20.807 mls/hr IV .Q24H [facility]; Protocol Stop: 10/26/20 02:29 Last Titration: 09/28/20 11:37 Dose: Infused Documented by: Ketamine HCl (Ketalar / Nss) 500 mg in 500 mls @ 10.71 mls/hr IV .Q24H [facility]; Protocol Stop: 10/26/20 10:59 Last Admin: 09/28/20 11:37 Dose: Not Given Documented by: Ceftriaxone Sodium 2,000 mg/ (Dextrose) 70 mls @ 100 mls/hr IV DAILY@1200 [facility]; Protocol Stop: 10/03/20 14:29 Last Infusion: 09/28/20 12:41 Dose: Infused Documented by: Fentanyl Citrate (Fentanyl Citrate) 2,500 mcg in 250 mls @ 15 mls/hr IV .[id number] [facility]; Protocol Stop: 10/10/20 15:29 Last Titration: 09/28/20 13:37 Dose: 100 mcg/hr, 10 mls/hr Documented by: Acetaminophen (Ofirmev) 1,000 mg in 100 mls @ 400 mls/hr IV Q8H PRN PRN Reason: Fever or headache Stop: 09/30/20 10:37 Last Infusion: 09/28/20 14:11 Dose: Infused Documented by: Levothyroxine Sodium (Levothyroxine Sodium 25 Mcg Tablet) 25 mcg PO DAILYBB [facility] Stop: 10/28/20 06:29 Last Admin: 09/28/20 05:55 Dose: 25 mcg Documented by: Metoprolol Tartrate (Metoprolol Tartrate 25 Mg Tab) 25 mg PO BID [facility] Stop: 10/27/20 08:59 Last Admin: 09/28/20 09:55 Dose: 25 mg Documented by: Metoprolol Tartrate (Metoprolol Tartrate 1 Mg/Ml Vial) 5 mg IV Q6 PRN PRN Reason: SBP>160 Stop: 10/24/20 11:59 Last Admin: 09/27/20 12:26 Dose: 5 mg Documented by: Multivitamins/Minerals (Multi Vit W/Minerals Liquid 15 Ml Udp) 15 ml PO QAM [facility] Stop: 10/28/20 08:59 Last Admin: 09/28/20 09:55 Dose: 15 ml Documented by: Nutritional Formula (Peptamen Intense Vhp 1.0 Oscar 1,000 Ml Bag) 1,000 ml OG UD [facility]; Protocol Stop: 10/26/20 15:59 Last Admin: 09/26/20 19:36 Dose: 1,000 ml Documented by: Pregabalin (Pregabalin 100 Mg Cap) 100 mg PO TID [facility] Stop: 10/25/20 20:59 Last Admin: 09/28/20 13:56 Dose: 100 mg Documented by: Sennosides (Sennosides 8.8 Mg/5 Ml Udc) 8.8 mg PO QAM [facility] Stop: 10/26/20 10:59 Last Admin: 09/28/20 08:19 Dose: 8.8 mg Documented by: PG Care Time/CCT Total # of Minutes Spent Total Time Spent with Patient: Total time spent is greater than 50% in coordination of care (as documented) at patient's floor/unit and/or counseling patient: Coding Level of Care Code 70029 Subseq Hosp Care Lvl 2 Diagnoses Pneumonia due to COVID-19 virus U07.1; J12.89 Acute respiratory failure with hypoxia J96.01 Acute metabolic encephalopathy G93.41 Acute kidney injury N17.9 Acute on chronic diastolic CHF (congestive heart failure) I50.33 Hyponatremia E87.1 Vitamin D deficiency E55.9 Restrictive lung disease J98.4 GUS on CPAP G47.33; Z99.89 Gout M10.9 Chronicity: unspecified Gout etiology: unspecified cause Gout site: unspecified site BPH with obstruction/lower urinary tract symptoms N40.1; N13.8 Hypertension I10 Hypertension type: essential hypertension Hypothyroidism E03.9 Hypothyroidism type: unspecified Opioid dependence F11.20 Substance use status: uncomplicated Acid reflux K21.9 Esophagitis presence: esophagitis presence not specified DVT prophylaxis Z29.9 Atrial flutter I48.92 MRSA (methicillin resistant staphylococcus aureus) pneumonia J15.212 (1) Opioid dependence Substance use status: uncomplicated Qualified Code(s): F11.20 - Opioid dependence, uncomplicated (2) Gout Chronicity: unspecified Gout etiology: unspecified cause Gout site: unspecified site Qualified Code(s): M10.9 - Gout, unspecified (3) Hypothyroidism Hypothyroidism type: unspecified Qualified Code(s): E03.9 - Hypothyroidism, unspecified (4) Acid reflux Esophagitis presence: esophagitis presence not specified Qualified Code(s): K21.9 - Gastro-esophageal reflux disease without esophagitis (5) Hypertension Hypertension type: essential hypertension Qualified Code(s): I10 - Essential (primary) hypertension
[2020-09-28] MEDS ORDERED: STAT IV Infusion **Titration per Protocol STA (19:03)
[2020-09-28] MEDS: PROPOFOL BOLUS FROM BAG IV PRN (21:00)
[2020-09-29] MEDS: ALBUT/IPRATROP 3MG/0.5MG NEB 3 ML VIAL NEB SCH ×4 (00:04→23:19)
[2020-09-29 04:43] LABS: iSTAT Art Bld Gas pCO2 Correct 48 mmHg (35-46); iSTAT Arterial Blood Gas HCO3 25 meg/L (19-24); iSTAT Arterial Blood Gas pCO2 48 mmHg (35-46); iSTAT Arterial Blood Gas pH 7.33 (7.35-7.45); iSTAT Arterial Blood Gas pO2 74 mmHg (80-95); iSTAT Arterial Blood Gas pO2 C 74; iSTAT Carbon Dioxide 27 mmol/L (24-31); iSTAT FiO2 50 %; iSTAT Hematocrit 36 % (42-52); iSTAT Hemoglobin 12.2 g/dl (14.0-18.0); iSTAT Potassium 4.5 mmol/L (3.3-5.0); iSTAT Site Art Line; iSTAT Sodium 141 mmol/L (135-144)
[2020-09-29] MEDS: LEVOTHYROXINE SODIUM 25 MCG TABLET PO SCH (04:52)
[2020-09-29] MEDS: NOREPINEPHRINE/D5W 8 MG/508 ML BAG IV SCH (04:52)
[2020-09-29] MEDS: hydrALAZINE HCL 20 MG/ML VIAL IV PRN ×2 (04:52→18:36)
[2020-09-29] MEDS: ENOXAPARIN 100 MG/1ML SYR SQ SCH ×2 (04:53→17:54)
[2020-09-29] MEDS: PROPOFOL BOLUS FROM BAG IV PRN (04:53)
[2020-09-29] MEDS: guaiFENesin SUGAR FREE 100 MG/5 ML UDC PO SCH ×3 (04:55→21:06)
[2020-09-29] MEDS: METOPROLOL TARTRATE 1 MG/ML VIAL IV PRN (05:50)
[2020-09-29] MEDS: propofoL 1,000 MG/100 ML VIAL IV SCH ×2 (05:51→19:37)
[2020-09-29 06:40] LABS: Hematocrit (blood only) 39.7 % (42-52); Hemoglobin 12.3 g/dL (14.0-18.0); Mean Corpuscular Hemoglobin 28.1 pg (25-34); Mean Corpuscular Volume 90.8 fL (80-100); Mean Platelet Volume 11.3 fL (7.4-10.4); Platelet Count 178 K/uL (130-400); RDW Coefficient of Variation 15.2 % (11.5-14.5); RDW Standard Deviation 51.5 fL (36.4-46.3); Red Blood Count 4.37 M/uL (4.7-6.1); White Blood Count 10.45 K/uL (4.8-10.8)
[2020-09-29 07:08] LABS: BUN Creatinine Ratio 54.6 (10-20); Calcium 8.8 mg/dl (8.5-10.1); Est GFR (African American) 66.1; Magnesium 2.7 mg/dl (1.8-2.4); Phosphorus 2.1 mg/dl (2.5-4.9); Potassium 4.4 mmol/L (3.5-5.1)
[2020-09-29 07:10] LABS: ALC (manual) 0.37 K/uL (1.2-3.4); ANC (manual) 8.73 K/uL (1.4-6.5); Eosinophils # (manual) 0.18 K/uL (0-0.5); Eosinophils % (manual) 1.7 %; Lymphocytes # (manual) 0.37 K/uL (1.2-3.4); Lymphocytes % (manual) 3.5 %; Metamyelocytes # (manual) 0.27 K/uL (0-0); Metamyelocytes % (manual) 2.6 %; Monocytes # (manual) 0.37 K/uL (0.11-0.59); Monocytes % (manual) 3.5 %; Myelocytes # (manual) 0.54 K/uL (0-0); Myelocytes % (manual) 5.2 %; Neutrophils # (manual) 8.73 K/uL (1.4-6.5); Neutrophils % (manual) 83.5 %
[2020-09-29] MEDS: ACETAMINOPHEN 1,000 MG/100 ML VIAL IV PRN ×2 (07:20→18:10)
[2020-09-29] MEDS: dexAMETHasone 6 MG in SYRINGE 0 ML IV SCH (07:22)
[2020-09-29] MEDS: THIAMINE HCL 100 MG in SYRINGE 9 ML IV SCH (07:22)
--- NOTE | 2020-09-29 07:58 | Hospitalist Progress Note ---
Date of Service September 29, 2020 Assessment & Plan (1) Pneumonia due to COVID-19 virus: -Dexamethasone 6mg IV daily, initiated on 09/22/2020 no Remdesivir or plasma as he presented 9 days into illness -Albuterol HFA PRN with acute hypoxic respiratory failure treated with BIPAP, tolerated well initially 09/25: intubated and ventilated now is on positive pressure ventilation via ET tube with 7 cm of pressure support and 6 cm of PEEP and closer towards extubation remains on treatment for possible secondary bacterial pneumonia management per Dr. Henry (2) Acute respiratory failure with hypoxia: Secondary to Covid-19 PNA, stable with BIPAP on 09/24 however, he deteriorated, required intubation on 09/[address] Henry (3) Acute metabolic encephalopathy: has a history of delirium when hospitalized he drinks at least 3 beers a day. is also on doxycycline po( via og) and ceftriaxone Previously on Propofol and fentanyl lightening sedation at this point time in preparation for extubation Lyrica added as he takes chronically (4) Acute kidney injury: Cr down to 1.36, electrolytes stable making adequate urine, use Lasix PRN for negative fluid balance (5) Acute on chronic diastolic CHF (congestive heart failure): related to aortic stenosis lasix given 09/22. still appears euvolemic, use Lasix PRN for negative fluid balance (6) Hyponatremia: was probably related to CHF - corrected after diuresis. follow periodically (7) Vitamin D deficiency: -Continue supplementation (8) Restrictive lung disease: fortunately no hypercapnea on ABG (9) GUS on CPAP: Chronic -again fortunately no hypercapnea (10) Gout: Chronic. Stable. 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 continue metoprolol and follow (13) Hypothyroidism: Chronic. Stable. Last TSH in 10/24 = 3.95 -Continue Synthroid 25mcg po daily (14) Opioid dependence: Patient with chronic pain and neuropathy -Continue Lyrica 100mg po TID giving Morphine/Fentanyl to prevent further withdrawal symptoms (15) Acid reflux: Chronic. Stable -Pepcid 20mg IV BID - may have effect on disease severity in Covid-19 (16) DVT prophylaxis: lovenox, therapeutic dosing (17) Atrial flutter: intermittent, use Amiodarone if needed, metoprolol bid 25 continues (18) MRSA (methicillin resistant staphylococcus aureus) pneumonia: MRSA nasal swab positive add Doxycycline to Rocephin for antibiotic coverage Admission and Anticipated Discharge Date Admission Date: September 22, 2020 Subjective pt is sedated and ventilated, vent is on Cpap mode wtih PS 7 and PEEP 6 50% fiO2 Review of Systems Review of Systems: Unobtainable due to endotracheal tube Physical Exam Physical Exam: The patient appeared critically ill Vital signs as documented. Lungs are coarse bilaterally Cardiac exam, Rhythm is regular.. No murmurs, rubs or gallops. Abdominal exam reveals normal bowel sounds, soft Extremities are nonedematous and both pedal pulses are normal. Neurologic exam is does raise his eyebrows to voice however does not follow commands Skin is without bruises or rashes Results & Data Results & Data ([facility]) Vital Signs (Past 12 Hours) Vital Signs Temp Pulse Resp BP Pulse Ox 09/29/20 06:00 99.3 F 74 151/70 H 92 09/29/20 05:50 80 198/47 H 09/29/20 05:30 99.0 F 81 155/62 H 92 09/29/20 05:00 98.8 F 71 145/58 H 92 09/29/20 04:27 80 26 H 95 09/29/20 04:00 98.2 F 58 L 122/52 L 92 09/29/20 03:30 98.2 F 57 L 118/55 L 92 09/29/20 03:00 98.2 F 58 L 122/57 L 92 09/29/20 02:30 98.2 F 59 L 126/54 L 92 09/29/20 02:00 98.2 F 60 131/53 L 92 09/29/20 01:30 98.4 F 60 25 H 117/53 L 90 09/29/20 01:00 98.6 F 61 26 H 115/50 L 90 09/29/20 00:30 98.8 F 63 26 H 120/51 L 90 09/29/20 00:21 57 L 24 94 09/29/20 00:00 99.0 F 60 122/54 L 93 09/28/20 23:30 99.1 F 57 L 121/53 L 94 09/28/20 23:00 99.5 F 57 L 118/52 L 94 09/28/20 22:30 99.5 F 59 L 115/54 L 91 09/28/20 22:00 99.7 F H 61 112/52 L 90 09/28/20 21:30 99.7 F H 70 136/64 92 09/28/20 21:23 73 25 H 91 09/28/20 20:30 99.5 F 76 152/67 H 92 09/28/20 20:00 99.7 F H 77 153/70 H 92 PG Care Time/CCT Total # of Minutes Spent Total Time Spent with Patient: Total time spent is greater than 50% in coordination of care (as documented) at patient's floor/unit and/or counseling patient: Coding Level of Care Code 42589 Subseq Hosp Care Lvl 3 Diagnoses Pneumonia due to COVID-19 virus U07.1; J12.89 Acute respiratory failure with hypoxia J96.01 Acute metabolic encephalopathy G93.41 Acute kidney injury N17.9 Acute on chronic diastolic CHF (congestive heart failure) I50.33 Hyponatremia E87.1 Vitamin D deficiency E55.9 Restrictive lung disease J98.4 GUS on CPAP G47.33; Z99.89 Gout M10.9 Chronicity: unspecified Gout etiology: unspecified cause Gout site: unspecified site BPH with obstruction/lower urinary tract symptoms N40.1; N13.8 Hypertension I10 Hypertension type: essential hypertension Hypothyroidism E03.9 Hypothyroidism type: unspecified Opioid dependence F11.20 Substance use status: uncomplicated Acid reflux K21.9 Esophagitis presence: esophagitis presence not specified DVT prophylaxis Z29.9 Atrial flutter I48.92 MRSA (methicillin resistant staphylococcus aureus) pneumonia J15.212 (1) Opioid dependence Substance use status: uncomplicated Qualified Code(s): F11.20 - Opioid dependence, uncomplicated (2) Gout Chronicity: unspecified Gout etiology: unspecified cause Gout site: unspecified site Qualified Code(s): M10.9 - Gout, unspecified (3) Hypothyroidism Hypothyroidism type: unspecified Qualified Code(s): E03.9 - Hypothyroidism, unspecified (4) Acid reflux Esophagitis presence: esophagitis presence not specified Qualified Code(s): K21.9 - Gastro-esophageal reflux disease without esophagitis (5) Hypertension Hypertension type: essential hypertension Qualified Code(s): I10 - Essential (primary) hypertension
[2020-09-29] MEDS: DOCUSATE SODIUM SYRUP 100 MG/10 ML UDC PO SCH (08:11)
[2020-09-29] MEDS: DOXYCYCLINE HYCLATE 100 MG CAP PO SCH ×2 (08:11→21:02)
[2020-09-29] MEDS: SENNOSIDES 8.8 MG/5 ML UDC PO SCH (08:11)
[2020-09-29] MEDS: MULTI VIT W/MINERALS LIQUID 15 ML UDP PO SCH (08:11)
[2020-09-29] MEDS: clonazePAM 0.25 MG TAB PO SCH ×2 (08:12→21:27)
[2020-09-29] MEDS: PREGABALIN 100 MG CAP PO SCH ×3 (08:12→21:02)
[2020-09-29] MEDS: METOPROLOL TARTRATE 25 MG TAB PO SCH ×2 (08:12→21:03)
[2020-09-29] MEDS: allopurinoL 100 MG TAB PO SCH (08:12)
[2020-09-29] MEDS ORDERED: POTASSIUM PHOS 3 MMOL/1 ML INFUSION IV STA (08:37)
[2020-09-29] MEDS ORDERED: FUROSEMIDE 20 MG in SYRINGE 0 ML IV ONE (08:45)
[2020-09-29] MEDS ORDERED: POTASSIUM PHOSPHATE 15 MMOL in SODIUM CHLORIDE 0.9% 250 ML IV ONE (09:00)
[2020-09-29] MEDS: fentaNYL citrate 2,500 MCG/250 ML BAG IV SCH (09:24)
[2020-09-29] MEDS: FAMOTIDINE 20 MG in SYRINGE 3 ML IV SCH ×2 (13:05→21:31)
[2020-09-29] MEDS: cefTRIAXone SODIUM 2,000 MG in DEXTROSE 5% 50 ML IV SCH (13:05)
--- NOTE | 2020-09-29 16:42 | Critical Care Progress Note ---
Date of Service September 29, 2020 Assessment & Plan (1) Acute metabolic encephalopathy: Reason Critically Ill: 69-year-old male with acute hypoxic respiratory failure due to Covid 19 pneumonia, confusion and delirium. Needed to be intubated for agitation encephalopathy and hypoxia on 09/25/2020 Neuro - Metabolic encephalopathymultiple contributing causes this patient currently infected with COVID-19 pneumonia, hypoxic, fevers, polypharmacy, and reported history of delirium on previous hospitalizations. - BUN is unremarkable, ammonia within normal limit, CO2 within normal limits -Patient is drinking alcohol on a daily basis 3 beers a day. DTs could also be playing a role on top of COVID-19 delirium Continue with propofol, fentanyl. Patient does have history of tracheostomy in the past. Chronic pain and neuropathy On Percocet 10/325 3 times daily as well as Lyrica 100 mg 3 times daily This might be one of the reasons the patient has high tolerance to negatives Lyrica resumed on 09/26/2020 CT head 09/27/2020: -ve for any acute changes. Cardiac - A flutter Patient apparently had a flutter from before Case was discussed with Dr. Carbajal And if it is persistent to start the amiodarone drip On therapeutic anticoagulation. History of diastolic heart failure with last echo in 2014 Continue with diuresis as tolerated Type II ME --> monitor troponin, no ST-T wave changes old right bundle branch block HTN Respiratory - Vent dependent respiratory failure --> acute hypoxic respiratory failure likely secondary to COVID-19 pneumonia and component of diastolic CHF (BNP 7563 on presentation) -Continue with ventilatory support -Keep RASS -1 History of GUS On CPAP 11 cmH2O at home GI - GERDcontinue famotidine RENAL/LYTES - JERRY:- Gradually improving Creatinine 1.2 at baseline Continue with monitoring BUNs/creatinine Replete electrolytes as per ICU protocol - Foleystrict I's and O's ENDO - No history of diabetes, ICU hyperglycemic protocol Hypothyroidcontinue Synthroid when able HEME - History of anemia, H&H currently stable at this time and no indication for transfusion. Monitor CBCs ID - Procalcitonin 0.14 on 09/24/2020 UA unremarkable and blood cultures negative to date Sputum culture growing group C beta strep as well as MRSA on 09/26/2020 Nasal MRSA positive --Prophylaxis VTE: Lovenox 100mg BID GI: Pepcid Lines: Right IJ 09/25, right radial 09/25, positive Rodriguez, intubated 09/25 Diet: Tube feeding Plan: In/out: +1701, urine output 1425 AB.33/48/74 on PEEP of 8 Patient is doing better when it comes to his ventilator settings. I was able to go down on FiO2 40%. We will try to wean off the sedation tolerated see the patient wakes up and follows commands. Trial of pressure support later today. If the patient does pressure support well the plan will be to extubate the patient tomorrow. We will give a dose of Lasix today. Hypophosphatemia being replaced. [phone] I have personally spent additional 39 minutes of critical care time in the direct management of this patient. This is a life/limb threatening event. This includes time spent evaluating joseph ent, direct bedside care, chart review, placing orders, interpretation of diagnostic studies, discussion with consultants, patient, and family members, as well as other required patient management activities. This time is exclusive of all separately billable procedures, and teaching time and separate from and in addition to any other critical care service time. Please note the above document was generated using voice recognition software. It may contain grammatical, syntax or spelling errors. (2) Acute on chronic diastolic CHF (congestive heart failure): (3) Acute respiratory failure with hypoxia: (4) Pneumonia due to COVID-19 virus: (5) GUS on CPAP: Admission and Anticipated Discharge Date Admission Date: September 22, 2020 Subjective Patient seen and examined at bedside. No acute distress, no adverse events overnight. Patient is on very low-dose Levophed. On propofol low-dose as well as fentanyl. Spiking T-max 38. Trying to wean off sedation as much as possible. Today's the first time patient is opening his eyes to deep stimulation. Review of Systems Review of Systems: Unobtainable due to cognitive status and Unobtainable due to endotracheal tube Physical Exam Physical Exam: Constitutional: No acute distress HEENT: PERRLA, previous tracheostomy scar, + ETT Respiratory system: Decreased air entry bilaterally, no wheeze, no rhonchi, positive crackles bilaterally CVS: S1-S2 positive, no murmurs or gallops Abdomen: Soft, nontender, nondistended, positive bowel sounds x4 Extremities: +2 pulses bilaterally radialis/ dorsalis pedis, no cyanosis, no edema Neuro: + corneal, + gag, + pupillary RASS -1 Psych: Unable to assess G/U: Positive Rodriguez Skin: no rashes, warm and dry Lymphatic: no cervical or axillary lymphadenopathy Results & Data Results & Data ([facility]) Vital Signs (Past 12 Hours) Vital Signs Temp Pulse Resp BP Pulse Ox 09/29/20 16:11 85 13 95 09/29/20 11:35 80 11 L 94 09/29/20 10:00 37.7 C H 66 105/51 L 92 09/29/20 09:00 37.7 C H 73 116/50 L 92 09/29/20 08:00 37.8 C H 70 120/52 L 92 09/29/20 07:59 70 27 H 91 09/29/20 07:00 37.7 C H 74 148/64 H 90 09/29/20 06:00 37.4 C 74 151/70 H 92 09/29/20 05:50 80 198/47 H 09/29/20 05:30 37.2 C 81 155/62 H 92 09/29/20 05:00 37.1 C 71 145/58 H 92 09/29/20 06:17 09/29/20 06:17 Coding Level of Care Code Critical Care 1st 30-74 mins Diagnoses Acute metabolic encephalopathy G93.41 Acute on chronic diastolic CHF (congestive heart failure) I50.33 Acute respiratory failure with hypoxia J96.01 Pneumonia due to COVID-19 virus U07.1; J12.89 GUS on CPAP G47.33; Z99.89 Time Spent (min) 39
[2020-09-30] MEDS: propofoL 1,000 MG/100 ML VIAL IV SCH ×6 (02:52→21:30)
[2020-09-30 04:53] LABS: iSTAT Art Bld Gas pCO2 Correct 39 mmHg (35-46); iSTAT Art Bld Gas pH Corrected 7.427 (7.35-7.45); iSTAT Arterial Blood Gas HCO3 25 meg/L (19-24); iSTAT Arterial Blood Gas pCO2 37 mmHg (35-46); iSTAT Arterial Blood Gas pH 7.45 (7.35-7.45); iSTAT Arterial Blood Gas pO2 58 mmHg (80-95); iSTAT Arterial Blood Gas pO2 C 63; iSTAT Carbon Dioxide 26 mmol/L (24-31); iSTAT FiO2 45 %; iSTAT Hematocrit 40 % (42-52); iSTAT Hemoglobin 13.6 g/dl (14.0-18.0); iSTAT Potassium 4.4 mmol/L (3.3-5.0); iSTAT Site Art Line; iSTAT Sodium 143 mmol/L (135-144)
[2020-09-30] MEDS: LEVOTHYROXINE SODIUM 25 MCG TABLET PO SCH (04:56)
[2020-09-30] MEDS: ENOXAPARIN 100 MG/1ML SYR SQ SCH ×2 (04:56→17:04)
[2020-09-30] MEDS: guaiFENesin SUGAR FREE 100 MG/5 ML UDC PO SCH ×3 (04:56→21:28)
[2020-09-30] MEDS: METOPROLOL TARTRATE 1 MG/ML VIAL IV PRN (05:01)
[2020-09-30 07:11] LABS: Hematocrit (blood only) 41.6 % (42-52); Hemoglobin 13.3 g/dL (14.0-18.0); Mean Corpuscular Hemoglobin 28.6 pg (25-34); Mean Corpuscular Volume 89.5 fL (80-100); Mean Platelet Volume 11.4 fL (7.4-10.4); Platelet Count 226 K/uL (130-400); RDW Coefficient of Variation 15.4 % (11.5-14.5); RDW Standard Deviation 50.6 fL (36.4-46.3); Red Blood Count 4.65 M/uL (4.7-6.1); White Blood Count 13.28 K/uL (4.8-10.8)
--- NOTE | 2020-09-30 07:15 | Hospitalist Progress Note ---
Date of Service September 30, 2020 Assessment & Plan (1) Pneumonia due to COVID-19 virus: -Dexamethasone 6mg IV daily, initiated on 09/22/2020 no Remdesivir or plasma as he presented 9 days into illness -Albuterol HFA PRN with acute hypoxic respiratory failure treated with BIPAP, tolerated well initially 09/25: intubated and ventilated now is on positive pressure ventilation via ET tube with 7 cm of pressure support and 6 cm of PEEP and closer towards extubation with fever will change antibiotics and have culture of blood and urine, since does have +mrsa nasal swab will use vancomycin and escalate gram negative coverage to zosyn we will keep antibiotics for 48 hours awaiting culture results of blood and urine. Sputum. Consideration if fever is from delirium tremens may consider more formal treatment management per Dr. Henry (2) Acute respiratory failure with hypoxia: Secondary to Covid-19 PNA, stable with BIPAP on 09/24 however, he deteriorated, required intubation on 09/[address] Henry Vent settings assist control respiratory rate 26 tidal volume 400 PEEP of 6, FiO2 50% (3) Acute metabolic encephalopathy: has a history of delirium when hospitalized he drinks at least 3 beers a day. now with fever of 102.7 will reculture and change antibiotics to vancomycin Previously on Propofol and fentanyl lightening sedation at this point time in preparation for extubation Lyrica added as he takes chronically (4) Acute kidney injury: Cr down to 1.36, electrolytes stable making adequate urine, use Lasix PRN for negative fluid balance (5) Acute on chronic diastolic CHF (congestive heart failure): related to aortic stenosis lasix given 09/22. still appears euvolemic, use Lasix PRN for negative fluid balance (6) Hyponatremia: was probably related to CHF - corrected after diuresis. follow periodically (7) Vitamin D deficiency: -Continue supplementation (8) Restrictive lung disease: fortunately no hypercapnea on ABG (9) GUS on CPAP: Chronic -again fortunately no hypercapnea (10) Gout: Chronic. Stable. 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 continue metoprolol and follow (13) Hypothyroidism: Chronic. Stable. Last TSH in 10/24 = 3.95 -Continue Synthroid 25mcg po daily (14) Opioid dependence: Patient with chronic pain and neuropathy -Continue Lyrica 100mg po TID giving Morphine/Fentanyl to prevent further withdrawal symptoms (15) Acid reflux: Chronic. Stable -Pepcid 20mg IV BID - may have effect on disease severity in Covid-19 (16) DVT prophylaxis: lovenox, therapeutic dosing (17) Atrial flutter: intermittent, use Amiodarone if needed, metoprolol bid 25 continues (18) MRSA (methicillin resistant staphylococcus aureus) pneumonia: MRSA nasal swab positive add Doxycycline to Rocephin for antibiotic coverage Admission and Anticipated Discharge Date Admission Date: September 22, 2020 Subjective Patient with fevers of 102.7. There is been no high fever such as distance September 24. He has had days that have been below 100 with his fever in the interim. Patient was on good antibiotic coverage for the known MRSA in his sputum with doxycycline and Rocephin. His pulmonary x-rays did not show any progression of pneumonia or worsening lung infiltrates. There is some discussion of fevers to be part of DTs from alcohol withdrawal if he does not respond to change in antibiotic coverage perhaps using phenobarbital could help as it will also help sedate the patient while he is intubated. Could also use benzodiazepines or gabapentin. Because of high fevers and tachycardia patient's extubation trial was postponed Review of Systems Review of Systems: Unobtainable due to cognitive status and Unobtainable due to endotracheal tube Physical Exam Physical Exam: The patient appeared critically ill Vital signs as documented. Lungs are coarse bilaterally Cardiac exam, Rhythm is regular.. No murmurs, rubs or gallops. Abdominal exam reveals normal bowel sounds, soft Extremities are nonedematous and both pedal pulses are normal. Neurologic exam is does raise his eyebrows to voice however does not follow commands Skin is without bruises or rashes Results & Data Results & [facility] ([facility]) Vital Signs (Past 12 Hours) Vital Signs Temp Pulse Resp BP Pulse Ox 09/30/20 05:01 94 H 219/62 H 09/30/20 05:00 101.5 F H 94 H 198/84 H 90 09/30/20 04:30 101.1 F H 94 H 196/95 H 90 09/30/20 04:13 92 H 34 H 90 09/30/20 04:00 100.9 F H 86 162/77 H 90 09/30/20 03:30 100.8 F H 87 160/89 H 88 L 09/30/20 03:00 100.4 F H 89 175/88 H 88 L 09/30/20 02:30 100.0 F H 88 191/87 H 91 09/30/20 02:00 99.9 F H 79 120/61 92 09/30/20 01:30 99.9 F H 74 121/56 L 92 09/30/20 01:00 100.0 F H 75 119/60 92 09/30/20 00:30 100.0 F H 77 118/61 92 09/30/20 00:00 100.2 F H 79 118/55 L 92 09/29/20 23:30 100.4 F H 78 124/52 L 93 09/29/20 23:19 70 26 H 92 09/29/20 23:00 100.6 F H 71 117/62 93 09/29/20 22:30 100.6 F H 74 127/67 93 09/29/20 22:00 100.6 F H 80 130/61 93 09/29/20 21:30 100.6 F H 119 H 139/65 93 09/29/20 21:00 100.6 F H 92 H 150/75 H 92 09/29/20 20:30 100.6 F H 94 H 151/63 H 92 09/29/20 20:05 95 H 32 H 93 09/29/20 20:00 100.6 F H 97 H 147/96 H 92 09/29/20 19:30 100.8 F H 96 H 154/68 H 93 PG Care Time/CCT Total # of Minutes Spent Total Time Spent with Patient: Total time spent is greater than 50% in coordination of care (as documented) at patient's floor/unit and/or counseling patient: Coding Level of Care Code 90873 Subseq Hosp Care Lvl 3 Diagnoses Pneumonia due to COVID-19 virus U07.1; J12.89 Acute respiratory failure with hypoxia J96.01 Acute metabolic encephalopathy G93.41 Acute kidney injury N17.9 Acute on chronic diastolic CHF (congestive heart failure) I50.33 Hyponatremia E87.1 Vitamin D deficiency E55.9 Restrictive lung disease J98.4 GUS on CPAP G47.33; Z99.89 Gout M10.9 Chronicity: unspecified Gout etiology: unspecified cause Gout site: unspecified site BPH with obstruction/lower urinary tract symptoms N40.1; N13.8 Hypertension I10 Hypertension type: essential hypertension Hypothyroidism E03.9 Hypothyroidism type: unspecified Opioid dependence F11.20 Substance use status: uncomplicated Acid reflux K21.9 Esophagitis presence: esophagitis presence not specified DVT prophylaxis Z29.9 Atrial flutter I48.92 MRSA (methicillin resistant staphylococcus aureus) pneumonia J15.212 (1) Opioid dependence Substance use status: uncomplicated Qualified Code(s): F11.20 - Opioid dependence, uncomplicated (2) Gout Chronicity: unspecified Gout etiology: unspecified cause Gout site: unspecified site Qualified Code(s): M10.9 - Gout, unspecified (3) Hypothyroidism Hypothyroidism type: unspecified Qualified Code(s): E03.9 - Hypothyroidism, unspecified (4) Acid reflux Esophagitis presence: esophagitis presence not specified Qualified Code(s): K21.9 - Gastro-esophageal reflux disease without esophagitis (5) Hypertension Hypertension type: essential hypertension Qualified Code(s): I10 - Essential (primary) hypertension
[2020-09-30] MEDS ORDERED: VANCOMYCIN CONSULT ACTIVE PRN (07:16)
[2020-09-30] MEDS ORDERED: PIPERACILL/TAZOBAC CONSULT ACTIVE PRN (07:16)
[2020-09-30] MEDS ORDERED: PIPERACILLIN/TAZOBACTAM 4.5 GM in DEXTROSE 5% 100 ML IV STA (07:16)
[2020-09-30 07:42] LABS: Basophils # (auto) 0.11 K/uL (0-0.2); Basophils % (auto) 0.8 %; Eosinophils # (auto) 0.19 K/uL (0-0.5); Eosinophils % (auto) 1.4 %; Immature Granulocytes # (auto) 1.23 K/uL (0.00-0.02); Immature Granulocytes % (auto) 9.3 %; Lymphocytes # (auto) 1.04 K/uL (1.2-3.4); Lymphocytes % (auto) 7.8 %; Monocytes # (auto) 2.03 K/uL (0.11-0.59); Monocytes % (auto) 15.3 %; Neutrophils # (auto) 8.68 K/uL (1.4-6.5); Neutrophils % (auto) 65.4 %
[2020-09-30 07:45] LABS: Calcium 9.6 mg/dl (8.5-10.1); Creatinine Clr Calc Pharmacy 65.7 ml/min; Est GFR (African American) 67.4; Est GFR (Non-African American) 58.1; Magnesium 2.3 mg/dl (1.8-2.4); Potassium 4.3 mmol/L (3.5-5.1)
[2020-09-30] MEDS ORDERED: PIPERACILLIN/TAZOBACTAM 4.5 GM in DEXTROSE 5% 100 ML IV ONE (07:45)
[2020-09-30] MEDS ORDERED: POTASSIUM PHOS 3 MMOL/1 ML INFUSION IV STA (07:46)
[2020-09-30] MEDS: FAMOTIDINE 20 MG in SYRINGE 3 ML IV SCH ×2 (07:48→21:24)
[2020-09-30] MEDS: hydrALAZINE HCL 20 MG/ML VIAL IV PRN (07:48)
[2020-09-30] MEDS: MULTI VIT W/MINERALS LIQUID 15 ML UDP PO SCH (07:49)
[2020-09-30] MEDS: PREGABALIN 100 MG CAP PO SCH ×3 (07:49→21:28)
[2020-09-30] MEDS: clonazePAM 0.25 MG TAB PO SCH ×2 (07:49→21:24)
[2020-09-30] MEDS ORDERED: POTASSIUM PHOSPHATE 21 MMOL in SODIUM CHLORIDE 0.9% 500 ML IV STA (07:49)
[2020-09-30] MEDS: METOPROLOL TARTRATE 25 MG TAB PO SCH ×2 (07:49→21:24)
[2020-09-30] MEDS: dexAMETHasone 6 MG in SYRINGE 0 ML IV SCH (07:50)
[2020-09-30] MEDS: THIAMINE HCL 100 MG in SYRINGE 9 ML IV SCH (07:50)
[2020-09-30] MEDS: SENNOSIDES 8.8 MG/5 ML UDC PO SCH (07:50)
[2020-09-30] MEDS: DOCUSATE SODIUM SYRUP 100 MG/10 ML UDC PO SCH (07:50)
[2020-09-30] MEDS: allopurinoL 100 MG TAB PO SCH (07:51)
[2020-09-30] MEDS ORDERED: VANCOMYCIN HCL 2,250 MG in SODIUM CHLORIDE 0.9% 500 ML IV SCH (08:00)
--- NOTE | 2020-09-30 08:02 | XRay Report ---
XR chest 1V portable CLINICAL HISTORY: Respiratory failure COMPARISON STUDY: 09/27/2020 FINDINGS: There is an endotracheal tube 4 cm above the jake. The heart is enlarged. There is a naso gastric tube which passes into the stomach. There is a right internal jugular central venous catheter unchanged in position. There are multifocal airspace opacities similar to the prior study.[ IMPRESSION: 1. Persistent multifocal pulmonary airspace opacities 2. Satisfactory positioning of the lines and tubes. ACT 112: Negative or not required by law. Electronically signed by: Mason Ariza M.D. 09/30/2020 8:00 AM
[2020-09-30] MEDS: ALBUT/IPRATROP 3MG/0.5MG NEB 3 ML VIAL NEB SCH ×3 (08:03→23:24)
[2020-09-30] MEDS: ACETAMINOPHEN 1,000 MG/100 ML VIAL IV PRN (08:24)
--- NOTE | 2020-09-30 09:49 | Pharmacy Report ---
Pharmacy Abx Dose Short Note - Date of Service September 30, 2020 - Assessment & Plan Assessment 69 year old M receiving Vancomycin and Zosyn for treatment of pneumonia * Patient admitted on 09/22/2020 secondary to worsening COVID-19 symptoms. Tested positive for COVID on 09/14/2020. * Required intubation and mechanical ventilation on 09/25/2020. Still requiring vent support, FiO2 currently at 50%. * Patient has been mostly febrile since 09/26/2020. 24 hour Tmax is 38.2oC. Renal fxn is stable and near baseline. Slight increase in WBCs today (10.5k--13.3k). * Sputum cultures from 09/25/2020 grew Group C Beta Strep and MRSA. MRSA is sensitive to Vanc (CASEY=2) and Daptomycin but resistant to Clindamycin. Plan Vancomycin * Loading Dose: 2250 mg IV x 1 (20.4 mg/kg) * Maintenance Dose: 1250 mg IV Q12H (11.4 mg/kg) - lower dose selected secondary to BMI > 35 and risk of accumulation * Goal trough level: 15 - 20 mcg/mL * Trough level ordered for Thursday to reflect steady state levels Zosyn * 4.5 g IV loading dose followed by 4.5 g IV every 8 hours for CrCl > 20 mL/min * Higher dose selected secondary to BMI > 35 Pharmacy will continue to follow and will adjust dose/frequency as necessary. Thank you.
[2020-09-30] MEDS: NOREPINEPHRINE/D5W 8 MG/508 ML BAG IV SCH (10:28)
--- NOTE | 2020-09-30 13:10 | Critical Care Progress Note ---
Date of Service September 30, 2020 Assessment & Plan (1) Acute metabolic encephalopathy: Reason Critically Ill: 69-year-old male with acute hypoxic respiratory failure due to Covid 19 pneumonia, confusion and delirium. Needed to be intubated for agitation encephalopathy and hypoxia on 09/25/2020 Neuro - Metabolic encephalopathymultiple contributing causes this patient currently infected with COVID-19 pneumonia, hypoxic, fevers, polypharmacy, and reported history of delirium on previous hospitalizations. - BUN is unremarkable, ammonia within normal limit, CO2 within normal limits -Patient is drinking alcohol on a daily basis 3 beers a day. DTs could also be playing a role on top of COVID-19 delirium Continue with propofol, fentanyl. Patient does have history of tracheostomy in the past. Chronic pain and neuropathy On Percocet 10/325 3 times daily as well as Lyrica 100 mg 3 times daily This might be one of the reasons the patient has high tolerance to negatives Lyrica resumed on 09/26/2020 CT head 09/27/2020: -ve for any acute changes. Cardiac - A flutter Patient apparently had a flutter from before Case was discussed with Dr. Carbajal On therapeutic anticoagulation. History of diastolic heart failure with last echo in 2014 Continue with diuresis as tolerated Type II [place] --> monitor troponin, no ST-T wave changes old right bundle branch block HTN Respiratory - Vent dependent respiratory failure --> acute hypoxic respiratory failure likely secondary to COVID-19 pneumonia and component of diastolic CHF (BNP 7563 on presentation) -Continue with ventilatory support -Keep RASS -1 History of GUS On CPAP 11 cmH2O at home GI - Tube feeds. RENAL/LYTES - JERRY:- Gradually improving Creatinine 1.2 at baseline Continue with monitoring BUNs/creatinine Replete electrolytes as per ICU protocol - Foleystrict I's and O's ENDO - No history of diabetes, ICU hyperglycemic protocol Hypothyroidcontinue Synthroid when able HEME - History of anemia, H&H currently stable at this time and no indication for transfusion. Monitor CBCs ID - Procalcitonin 0.14 on 09/24/2020 UA unremarkable and blood cultures negative to date Sputum culture growing group C beta strep as well as MRSA on 09/26/2020 Nasal MRSA positive Patient again started to spike fever the evening of 07/30/2020. Antibiotics changed to Vanco and Zosyn Repeat blood culture and UA has been ordered 09/29/2020 --Prophylaxis VTE: Lovenox 100mg BID GI: Pepcid Lines: Right IJ 09/25, right radial 09/25, positive Rodriguez, intubated 09/25 Diet: Tube feeding Plan: In/out: -2.1 L, urine output 3550 AB.45/37/58 on PEEP of 6, 45% Hypophosphatemia is being replaced. Patient is again spiking high fevers. There is no significant change in the pulmonary infiltrates. Patient has been on antibiotics Rocephin and doxycycline for the MRSA in the phlegm. Antibiotics were changed to Vanco/Zosyn on 09/29/2020 --> repeat blood culture and urine culture have been ordered on 09/29/2020 I would continue with broad-spectrum antibiotics for 48 hours if the blood culture is not growing anything I think we can de-escalate antibiotics Patients with COVID-19 spike fever for weeks. Unfortunately because of the high fevers and patient's mentation would have to hold back on extubation trial. Continue with sedation. [phone] was called and updated about patient's current condition. I have personally spent additional 39 minutes of critical care time in the direct management of this patient. This is a life/limb threatening event. This includes time spent evaluating patient, direct bedside care, chart review, placing orders, interpretation of diagnostic studies, discussion with consultants, patient, and family members, as well as other required patient management activities. This time is exclusive of all separately billable procedures, and teaching time and separate from and in addition to any other critical care service time. Please note the above document was generated using voice recognition software. It may contain grammatical, syntax or spelling errors. (2) Acute on chronic diastolic CHF (congestive heart failure): (3) Acute respiratory failure with hypoxia: (4) Pneumonia due to COVID-19 virus: (5) GUS on CPAP: Admission and Anticipated Discharge Date Admission Date: September 22, 2020 Subjective Patient seen and examined at bedside. He was in the heart rate of 130s as well as respirate in the 30s at the time of examination His temperature was 39.4 C. Patient was getting acetaminophen at that time. By increasing sedation. Advised nurse to get cooling blanket ready. Review of Systems Review of Systems: Unobtainable due to cognitive status and Unobtainable due to endotracheal tube Physical Exam Physical Exam: Constitutional: No acute distress HEENT: PERRLA, previous tracheostomy scar, + ETT Respiratory system: Decreased air entry bilaterally, no wheeze, no rhonchi, positive crackles bilaterally CVS: S1-S2 positive, no murmurs or gallops Abdomen: Soft, nontender, nondistended, positive bowel sounds x4 Extremities: +2 pulses bilaterally radialis/ dorsalis pedis, no cyanosis, no edema Neuro: + corneal, + gag, + pupillary RASS -1 Psych: Unable to assess G/U: Positive Rodriguez Skin: no rashes, warm and dry Lymphatic: no cervical or axillary lymphadenopathy Results & Data Results & Data ([facility]) Vital Signs (Past 12 Hours) Vital Signs Temp Pulse Resp BP Pulse Ox 09/30/20 11:54 85 26 H 94 09/30/20 11:00 38.2 C H 91 H 121/53 L 94 09/30/20 10:33 38.7 C H 94 H 136/53 L 94 09/30/20 10:30 38.8 C H 83 80/44 L 92 09/30/20 10:14 38.9 C H 88 88/45 L 92 09/30/20 10:00 39.0 C H 93 H 92 09/30/20 09:30 39.1 C H 106 H 150/57 H 87 L 09/30/20 09:00 39.3 C H 115 H 184/75 H 88 L 09/30/20 08:31 39.3 C H 124 H 207/91 H 88 L 09/30/20 08:00 39.4 C H 88 168/105 H 89 L 09/30/20 07:36 108 H 30 H 88 L 09/30/20 07:30 39.2 C H 109 H 216/88 H 88 L 09/30/20 07:00 39.1 C H 100 H 205/88 H 89 L 09/30/20 05:01 94 H 219/62 H 09/30/20 05:00 38.6 C H 94 H 198/84 H 90 09/30/20 04:30 38.4 C H 94 H 196/95 H 90 09/30/20 04:13 92 H 34 H 90 09/30/20 04:00 38.3 C H 86 162/77 H 90 09/30/20 03:30 38.2 C H 87 160/89 H 88 L 09/30/20 03:00 38.0 C H 89 175/88 H 88 L 09/30/20 02:30 37.8 C H 88 191/87 H 91 09/30/20 02:00 37.7 C H 79 120/61 92 09/30/20 01:30 37.7 C H 74 121/56 L 92 09/30/20 06:36 09/30/20 06:36 Coding Level of Care Code Critical Care 1st 30-74 mins Diagnoses Acute metabolic encephalopathy G93.41 Acute on chronic diastolic CHF (congestive heart failure) I50.33 Acute respiratory failure with hypoxia J96.01 Pneumonia due to COVID-19 virus U07.1; J12.89 GUS on CPAP G47.33; Z99.89 Time Spent (min) 39
[2020-09-30] MEDS: PIPERACILLIN/TAZOBACTAM 4.5 GM in DEXTROSE 5% 100 ML IV SCH ×2 (14:14→22:14)
[2020-09-30] MEDS: fentaNYL citrate 2,500 MCG/250 ML BAG IV SCH (17:03)
[2020-09-30] MEDS: VANCOMYCIN HCL 1,250 MG in SODIUM CHLORIDE 0.9% 250 ML IV SCH (20:08)
[2020-10-01] MEDS: propofoL 1,000 MG/100 ML VIAL IV SCH ×5 (02:03→21:03)
[2020-10-01] MEDS: guaiFENesin SUGAR FREE 100 MG/5 ML UDC PO SCH ×3 (03:52→21:35)
[2020-10-01 05:11] LABS: iSTAT Art Bld Gas pCO2 Correct 46 mmHg (35-46); iSTAT Art Bld Gas pH Corrected 7.343 (7.35-7.45); iSTAT Arterial Blood Gas HCO3 25 meg/L (19-24); iSTAT Arterial Blood Gas pCO2 43 mmHg (35-46); iSTAT Arterial Blood Gas pH 7.37 (7.35-7.45); iSTAT Arterial Blood Gas pO2 79 mmHg (80-95); iSTAT Arterial Blood Gas pO2 C 87; iSTAT Carbon Dioxide 26 mmol/L (24-31); iSTAT FiO2 50 %; iSTAT Hematocrit 36 % (42-52); iSTAT Hemoglobin 12.2 g/dl (14.0-18.0); iSTAT Potassium 4.7 mmol/L (3.3-5.0); iSTAT Site Art Line; iSTAT Sodium 145 mmol/L (135-144)
[2020-10-01] MEDS ORDERED: ACETAMINOPHEN 1,000 MG/100 ML VIAL IV STA (05:31)
[2020-10-01] MEDS: LEVOTHYROXINE SODIUM 25 MCG TABLET PO SCH (05:48)
[2020-10-01] MEDS: ENOXAPARIN 100 MG/1ML SYR SQ SCH ×2 (05:48→17:34)
[2020-10-01] MEDS: PIPERACILLIN/TAZOBACTAM 4.5 GM in DEXTROSE 5% 100 ML IV SCH (05:48)
[2020-10-01 07:25] LABS: Hematocrit (blood only) 35.6 % (42-52); Hemoglobin 12.1 g/dL (14.0-18.0); Mean Corpuscular Hemoglobin 31.3 pg (25-34); Mean Platelet Volume 11.4 fL (7.4-10.4); Platelet Count 183 K/uL (130-400); RDW Coefficient of Variation 15.7 % (11.5-14.5); RDW Standard Deviation 52.8 fL (36.4-46.3); Red Blood Count 3.87 M/uL (4.7-6.1)
[2020-10-01 07:53] LABS: Basophils # (auto) 0.14 K/uL (0-0.2); Basophils % (auto) 1.1 %; Eosinophils # (auto) 0.23 K/uL (0-0.5); Eosinophils % (auto) 1.9 %; Immature Granulocytes # (auto) 1.13 K/uL (0.00-0.02); Immature Granulocytes % (auto) 9.2 %; Lymphocytes # (auto) 2.04 K/uL (1.2-3.4); Lymphocytes % (auto) 16.6 %; Monocytes # (auto) 1.87 K/uL (0.11-0.59); Monocytes % (auto) 15.2 %; Neutrophils # (auto) 6.89 K/uL (1.4-6.5)
[2020-10-01 07:57] LABS: Albumin Level 1.9 gm/dl (3.4-5.0); BUN Creatinine Ratio 45.6 (10-20); Bilirubin Direct 0.5 mg/dl (0-0.2); Calcium 8.6 mg/dl (8.5-10.1); Est GFR (African American) 53.1; Est GFR (Non-African American) 45.8; Magnesium 2.4 mg/dl (1.8-2.4); Potassium 4.6 mmol/L (3.5-5.1)
[2020-10-01 08:01] LABS: Bilirubin,Total 0.8 mg/dl (0.2-1); Phosphorus 3.2 mg/dl (2.5-4.9); Total Protein 6.7 gm/dl (6.4-8.2)
[2020-10-01] MEDS: clonazePAM 0.25 MG TAB PO SCH ×2 (08:26→21:32)
[2020-10-01] MEDS: PREGABALIN 100 MG CAP PO SCH ×3 (08:26→21:35)
[2020-10-01] MEDS: THIAMINE HCL 100 MG in SYRINGE 9 ML IV SCH (08:26)
[2020-10-01] MEDS: dexAMETHasone 6 MG in SYRINGE 0 ML IV SCH (08:26)
[2020-10-01] MEDS: VANCOMYCIN HCL 1,250 MG in SODIUM CHLORIDE 0.9% 250 ML IV SCH (08:26)
[2020-10-01] MEDS: DOCUSATE SODIUM SYRUP 100 MG/10 ML UDC PO SCH (08:27)
[2020-10-01] MEDS: SENNOSIDES 8.8 MG/5 ML UDC PO SCH (08:27)
[2020-10-01] MEDS: METOPROLOL TARTRATE 25 MG TAB PO SCH ×2 (08:28→21:32)
[2020-10-01] MEDS: MULTI VIT W/MINERALS LIQUID 15 ML UDP PO SCH (08:28)
[2020-10-01] MEDS: allopurinoL 100 MG TAB PO SCH (08:28)
[2020-10-01] MEDS: FAMOTIDINE 20 MG in SYRINGE 3 ML IV SCH ×2 (08:30→21:32)
[2020-10-01] MEDS: ALBUT/IPRATROP 3MG/0.5MG NEB 3 ML VIAL NEB SCH ×3 (08:42→23:59)
--- NOTE | 2020-10-01 08:51 | XRay Report ---
XR chest 1V portable HISTORY: Follow-up. Respiratory failure. COMPARISON: Chest 09/30/2020. FINDINGS: Lines and tubes appear to be in satisfactory position with the endotracheal tube terminates proximal a 1.7 cm and the jake. No pneumothorax. No pleural effusions. Patchy bibasilar airspace o pacities have improved on the left. The heart remains mildly enlarged. No pneumothorax. IMPRESSION: 1. Improved aeration within the lungs. 2. Satisfactory support line placement. ACT 112: Negative or not required by law. Electronically signed by: Job Bailey M.D. 10/01/2020 8:49 AM
[2020-10-01] MEDS: TUBE FEEDING WATER FLUSH GT SCH ×3 (10:48→22:30)
--- NOTE | 2020-10-01 12:19 | Critical Care Progress Note ---
Date of Service October 01, 2020 Assessment & Plan (1) Acute metabolic encephalopathy: Reason Critically Ill: 69-year-old male with acute hypoxic respiratory failure due to Covid 19 pneumonia, confusion and delirium. Needed to be intubated for agitation encephalopathy and hypoxia on 09/25/2020 Neuro - Metabolic encephalopathymultiple contributing causes this patient currently infected with COVID-19 pneumonia, hypoxic, fevers, polypharmacy, and reported history of delirium on previous hospitalizations. - BUN is unremarkable, ammonia within normal limit, CO2 within normal limits -Patient is drinking alcohol on a daily basis 3 beers a day. DTs could also be playing a role on top of COVID-19 delirium Continue with propofol, fentanyl. Wean sedation as able Patient does have history of tracheostomy in the past. Chronic pain and neuropathy On Percocet 10/325 3 times daily as well as Lyrica 100 mg 3 times daily Lyrica resumed on 09/26/2020 CT head 09/27/2020: -ve for any acute changes. Cardiac - A flutter Patient apparently had a flutter from before On therapeutic anticoagulation. Continue metoprolol tartrate 25 mg 3 times daily. History of diastolic heart failure with last echo in 2014 Continue with diuresis as tolerated Type II [place] --> monitor troponin, no ST-T wave changes old right bundle branch block HTN Respiratory - Vent dependent respiratory failure --> acute hypoxic respiratory failure. Intubation day #6. likely secondary to COVID-19 pneumonia and component of diastolic CHF (BNP 7563 on presentation) -Continue with ventilatory support -Keep RASS -1 History of GUS On CPAP 11 cmH2O at home GI - Tube feeds. Check triglyceride levels while on propofol. RENAL/LYTES - JERRY:- Gradually improving Creatinine 1.2 at baseline Continue with monitoring BUNs/creatinine Replete electrolytes as per ICU protocol - Foleystrict I's and O's ENDO - No history of diabetes, ICU hyperglycemic protocol Hypothyroidcontinue Synthroid when able HEME - History of anemia, H&H currently stable at this time and no indication for transfusion. Monitor CBCs ID - Procalcitonin 0.14 on 09/24/2020 UA unremarkable and blood cultures negative to date Sputum culture growing group C beta strep as well as MRSA on 09/26/2020 Nasal MRSA positive Urine culture from 09/30/2020 is negative. Sputum culture 09/30/2020 is growing staph. Likely colonized with staph aureus. --Prophylaxis VTE: Lovenox 100mg BID GI: Pepcid Lines: Right IJ 09/25, right radial 09/25, positive Rodriguez, intubated 09/25 Diet: Tube feeding Overall prognosis is extremely poor. I have personally spent additional 38 minutes of critical care time in the direct management of this patient. This is a life/limb threatening event. This includes time spent evaluating patient, direct bedside care, chart review, placing orders, interpretation of diagnostic studies, discussion with consultants, patient, and family members, as well as other required patient management activities. This time is exclusive of all separately billable procedures, and teaching time and separate from and in addition to any other critical care service time. Please note the above document was generated using voice recognition software. It may contain grammatical, syntax or spelling errors. (2) Acute on chronic diastolic CHF (congestive heart failure): (3) Acute respiratory failure with hypoxia: (4) Pneumonia due to COVID-19 virus: (5) GUS on CPAP: Admission and Anticipated Discharge Date Admission Date: September 22, 2020 Subjective Patient is currently intubated and sedated. Requiring high amounts of sedation. Currently on 55% FiO2 and a PEEP of 6. Saturating in the low 90s. Review of Systems Review of Systems: Unobtainable due to endotracheal tube and Unobtainable due to reduced consciousness Physical Exam Physical Exam: Constitutional: No acute distress HEENT: PERRLA, previous tracheostomy scar, + ETT Respiratory system: Decreased air entry bilaterally, no wheeze, no rhonchi, positive crackles bilaterally CVS: S1-S2 positive, no murmurs or gallops Abdomen: Soft, nontender, nondistended, positive bowel sounds x4 Extremities: +2 pulses bilaterally radialis/ dorsalis pedis, no cyanosis, no edema Neuro: + corneal, + gag, + pupillary RASS -1 Psych: Unable to assess G/U: Positive Rodriguez Skin: no rashes, warm and dry Lymphatic: no cervical or axillary lymphadenopathy Results & Data Results & Data ([facility]) Vital Signs (Past 12 Hours) Vital Signs Pulse Resp Pulse Ox 10/01/20 11:53 73 25 H 93 10/01/20 08:42 96 H 28 H 92 10/01/20 04:06 93 H 26 H 93 I reviewed the vital signs, labs and imaging Coding Level of Care Code Critical Care 1st 30-74 mins Diagnoses Acute metabolic encephalopathy G93.41 Acute on chronic diastolic CHF (congestive heart failure) I50.33 Acute respiratory failure with hypoxia J96.01 Pneumonia due to COVID-19 virus U07.1; J12.89 GSU on CPAP G47.33; Z99.89 Time Spent (min) 38
[2020-10-01] MEDS: cefTRIAXone SODIUM 2,000 MG in DEXTROSE 5% 50 ML IV SCH (12:34)
[2020-10-01] MEDS: POLYETHYLENE (MIRALAX) 17 GM PACK PO SCH (12:34)
[2020-10-01] MEDS: fentaNYL citrate 2,500 MCG/250 ML BAG IV SCH (14:07)
[2020-10-01] MEDS: NOREPINEPHRINE/D5W 8 MG/508 ML BAG IV SCH (17:34)
[2020-10-01] MEDS: PEPTAMEN INTENSE VHP 1.0 CAL 1,000 ML BAG OG SCH (17:35)
--- NOTE | 2020-10-01 17:35 | Hospitalist Progress Note ---
Date of Service October 01, 2020 Assessment & Plan (1) Pneumonia due to COVID-19 virus: -Dexamethasone 6mg IV daily, initiated on 09/22/2020 no Remdesivir or plasma as he presented 9 days into illness -Albuterol HFA PRN with acute hypoxic respiratory failure treated with BIPAP, tolerated well initially 09/25: intubated and ventilated with fever will change antibiotics and have culture of blood and urine, since does have +mrsa nasal swab will use vancomycin and escalate gram negative coverage to zosyn we will keep antibiotics for 48 hours awaiting culture results of blood and urine. Sputum. Consideration if fever is from delirium tremens may consider more formal treatment (2) Acute respiratory failure with hypoxia: Secondary to Covid-19 PNA, stable with BIPAP on 09/24 however, he deteriorated, required intubation on 09/[address] Sanchez Vent settings assist control respiratory rate 24 tidal volume 400 PEEP of 5, FiO2 50% (3) Acute metabolic encephalopathy: has a history of delirium when hospitalized he drinks at least 3 beers a day. now with fever change antibiotics to vancomycin and ceftriaxone Previously on Propofol and fentanyl lightening sedation at this point time in preparation for extubation Lyrica added as he takes chronically (4) Acute kidney injury: Cr down to 1.36, electrolytes stable making adequate urine, use Lasix PRN for negative fluid balance (5) Acute on chronic diastolic CHF (congestive heart failure): related to aortic stenosis lasix given 09/22. still appears euvolemic, use Lasix PRN for negative fluid balance (6) Hyponatremia: was probably related to CHF - corrected after diuresis. follow periodically (7) Vitamin D deficiency: -Continue supplementation (8) Restrictive lung disease: fortunately no hypercapnea on ABG (9) GUS on CPAP: Chronic -again fortunately no hypercapnea (10) Gout: Chronic. Stable. 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 continue metoprolol and follow (13) Hypothyroidism: Chronic. Stable. Last TSH in 10/24 = 3.95 -Continue Synthroid 25mcg po daily (14) Opioid dependence: Patient with chronic pain and neuropathy -Continue Lyrica 100mg po TID giving Morphine/Fentanyl to prevent further withdrawal symptoms (15) Acid reflux: Chronic. Stable -Pepcid 20mg IV BID - may have effect on disease severity in Covid-19 (16) DVT prophylaxis: lovenox, therapeutic dosing (17) Atrial flutter: intermittent, use Amiodarone if needed, metoprolol bid 25 continues (18) MRSA (methicillin resistant staphylococcus aureus) pneumonia: MRSA nasal swab positive vancomycin to Rocephin for antibiotic coverage Admission and Anticipated Discharge Date Admission Date: September 22, 2020 Subjective Patient with low grade temperatures, did not really ever clear, does have some gram positive sputum cultures Review of Systems Review of Systems: Unobtainable due to endotracheal tube Physical Exam Physical Exam: The patient appeared critically ill Vital signs as documented. Lungs are coarse bilaterally Cardiac exam, Rhythm is regular.. No murmurs, rubs or gallops. Abdominal exam reveals normal bowel sounds, soft Extremities are nonedematous and both pedal pulses are normal. Neurologic exam is does raise his eyebrows to voice however does not follow commands Skin is without bruises or rashes Results & Data Results & Data ([facility]) Vital Signs (Past 12 Hours) Vital Signs Temp Pulse Resp BP Pulse Ox 10/01/20 15:22 82 27 H 93 10/01/20 13:30 100.9 F H 75 111/51 L 94 10/01/20 13:00 101.1 F H 80 115/51 L 94 10/01/20 12:00 101.3 F H 75 114/52 L 92 10/01/20 11:53 73 25 H 93 10/01/20 11:00 101.1 F H 73 104/50 L 91 10/01/20 10:30 101.3 F H 74 101/47 L 92 10/01/20 10:00 101.3 F H 77 96/48 L 91 10/01/20 09:30 101.5 F H 81 102/49 L 90 10/01/20 09:00 101.5 F H 90 115/50 L 91 10/01/20 08:42 96 H 28 H 92 10/01/20 08:30 101.7 F H 94 H 122/62 91 10/01/20 08:00 101.5 F H 90 112/51 L 89 L 10/01/20 07:00 101.5 F H 91 H 91 PG Care Time/CCT Total # of Minutes Spent Total Time Spent with Patient: Total time spent is greater than 50% in coordination of care (as documented) at patient's floor/unit and/or counseling patient: Coding Level of Care Code 97473 Subseq Hosp Care Lvl 3 Diagnoses Pneumonia due to COVID-19 virus U07.1; J12.89 Acute respiratory failure with hypoxia J96.01 Acute metabolic encephalopathy G93.41 Acute kidney injury N17.9 Acute on chronic diastolic CHF (congestive heart failure) I50.33 Hyponatremia E87.1 Vitamin D deficiency E55.9 Restrictive lung disease J98.4 GUS on CPAP G47.33; Z99.89 Gout M10.9 Gout site: unspecified site Gout etiology: unspecified cause Chronicity: unspecified BPH with obstruction/lower urinary tract symptoms N40.1; N13.8 Hypertension I10 Hypertension type: essential hypertension Hypothyroidism E03.9 Hypothyroidism type: unspecified Opioid dependence F11.20 Substance use status: uncomplicated Acid reflux K21.9 Esophagitis presence: esophagitis presence not specified DVT prophylaxis Z29.9 Atrial flutter I48.92 MRSA (methicillin resistant staphylococcus aureus) pneumonia J15.212 (1) Gout Gout site: unspecified site Gout etiology: unspecified cause Chronicity: unspecified Qualified Code(s): M10.9 - Gout, unspecified (2) Hypertension Hypertension type: essential hypertension Qualified Code(s): I10 - Essential (primary) hypertension (3) Hypothyroidism Hypothyroidism type: unspecified Qualified Code(s): E03.9 - Hypothyroidism, unspecified (4) Opioid dependence Substance use status: uncomplicated Qualified Code(s): F11.20 - Opioid dependence, uncomplicated (5) Acid reflux Esophagitis presence: esophagitis presence not specified Qualified Code(s): K21.9 - Gastro-esophageal reflux disease without esophagitis
[2020-10-01] MEDS ORDERED: ACETAMINOPHEN SUSP 325 MG/10.15 ML UDC PO STA (17:39)
[2020-10-01] MEDS ORDERED: VANCOMYCIN TROUGH ONE (19:30)
[2020-10-02] MEDS: propofoL 1,000 MG/100 ML VIAL IV SCH ×5 (04:15→23:48)
[2020-10-02] MEDS: guaiFENesin SUGAR FREE 100 MG/5 ML UDC PO SCH ×3 (04:26→21:34)
[2020-10-02 04:45] LABS: iSTAT Art Bld Gas pCO2 Correct 44 mmHg (35-46); iSTAT Art Bld Gas pH Corrected 7.352 (7.35-7.45); iSTAT Arterial Blood Gas HCO3 24 meg/L (19-24); iSTAT Arterial Blood Gas pCO2 41 mmHg (35-46); iSTAT Arterial Blood Gas pH 7.38 (7.35-7.45); iSTAT Arterial Blood Gas pO2 71 mmHg (80-95); iSTAT Arterial Blood Gas pO2 C 79; iSTAT Carbon Dioxide 25 mmol/L (24-31); iSTAT FiO2 50 %; iSTAT Hematocrit 33 % (42-52); iSTAT Hemoglobin 11.2 g/dl (14.0-18.0); iSTAT Potassium 4.8 mmol/L (3.3-5.0); iSTAT Site Art Line; iSTAT Sodium 144 mmol/L (135-144)
[2020-10-02] MEDS: TUBE FEEDING WATER FLUSH GT SCH ×4 (05:27→21:32)
[2020-10-02] MEDS: LEVOTHYROXINE SODIUM 25 MCG TABLET PO SCH (05:33)
[2020-10-02] MEDS: ENOXAPARIN 100 MG/1ML SYR SQ SCH ×2 (05:33→20:40)
[2020-10-02 06:34] LABS: Hematocrit (blood only) 37.3 % (42-52); Hemoglobin 11.5 g/dL (14.0-18.0); Mean Corpuscular Hemoglobin 28.4 pg (25-34); Mean Corpuscular Hgb Conc 30.8 g/dL (32-36); Mean Corpuscular Volume 92.1 fL (80-100); Mean Platelet Volume 11.2 fL (7.4-10.4); Platelet Count 172 K/uL (130-400); RDW Coefficient of Variation 15.3 % (11.5-14.5); RDW Standard Deviation 52.1 fL (36.4-46.3); Red Blood Count 4.05 M/uL (4.7-6.1); White Blood Count 12.96 K/uL (4.8-10.8)
[2020-10-02 06:49] LABS: BUN Creatinine Ratio 53.7 (10-20); Calcium 8.8 mg/dl (8.5-10.1); Creatinine Clr Calc Pharmacy 58.2 ml/min; Est GFR (African American) 58.2; Est GFR (Non-African American) 50.2; Magnesium 2.7 mg/dl (1.8-2.4); Phosphorus 2.7 mg/dl (2.5-4.9); Potassium 4.9 mmol/L (3.5-5.1)
[2020-10-02 07:11] LABS: Basophils # (auto) 0.16 K/uL (0-0.2); Basophils % (auto) 1.2 %; Eosinophils # (auto) 0.17 K/uL (0-0.5); Eosinophils % (auto) 1.3 %; Immature Granulocytes # (auto) 0.97 K/uL (0.00-0.02); Immature Granulocytes % (auto) 7.5 %; Lymphocytes # (auto) 3.08 K/uL (1.2-3.4); Lymphocytes % (auto) 23.8 %; Monocytes # (auto) 1.38 K/uL (0.11-0.59); Monocytes % (auto) 10.6 %; Neutrophils % (auto) 55.6 %
[2020-10-02] MEDS ORDERED: VANCOMYCIN TROUGH ONE (07:30)
[2020-10-02] MEDS: ALBUT/IPRATROP 3MG/0.5MG NEB 3 ML VIAL NEB SCH ×3 (07:51→23:44)
--- NOTE | 2020-10-02 08:32 | XRay Report ---
SINGLE VIEW CHEST CLINICAL HISTORY: Respiratory failure. Intubation. FINDINGS: An AP, portable, upright chest radiograph is compared to study dated 10/01/2020 and correla gabriela with chest CT dated 09/21/2020. The examination is degraded by portable technique and patient rot ation. A right internal jugular central venous catheter, an endotracheal tube, and an enteric tube ar e unchanged in position. The heart is enlarged noting atherosclerotic calcification of the thoracic a dawna. Hazy airspace consolidation is seen throughout both lungs and is unchanged. There are small ple ural effusions. No pneumothorax is seen. The skeletal structures are osteopenic. The bony thorax is g rossly intact. IMPRESSION: 1. Stable lines and tubes. 2. Cardiomegaly. 3. Hazy bilateral airspace opacities are unchanged from yesterday. 4. Small pleural effusions. ACT 112: Negative or not required by law. Electronically signed by: Lucas Guadalupe M.D. 10/02/2020 8:31 AM
[2020-10-02] MEDS: clonazePAM 0.25 MG TAB PO SCH ×2 (08:54→21:31)
[2020-10-02] MEDS: PREGABALIN 100 MG CAP PO SCH ×3 (08:54→21:31)
[2020-10-02] MEDS: SENNOSIDES 8.8 MG/5 ML UDC PO SCH (08:55)
[2020-10-02] MEDS: allopurinoL 100 MG TAB PO SCH (08:55)
[2020-10-02] MEDS: METOPROLOL TARTRATE 25 MG TAB PO SCH ×2 (08:55→21:32)
[2020-10-02] MEDS: DOCUSATE SODIUM SYRUP 100 MG/10 ML UDC PO SCH (08:55)
[2020-10-02] MEDS: POLYETHYLENE (MIRALAX) 17 GM PACK PO SCH (08:55)
[2020-10-02] MEDS: MULTI VIT W/MINERALS LIQUID 15 ML UDP PO SCH (08:55)
[2020-10-02] MEDS: THIAMINE HCL 100 MG in SYRINGE 9 ML IV SCH (08:55)
[2020-10-02] MEDS: FAMOTIDINE 20 MG in SYRINGE 3 ML IV SCH (08:57)
[2020-10-02] MEDS: ACETAMINOPHEN SUSP 325 MG/10.15 ML UDC PO PRN ×2 (10:15→21:52)
--- NOTE | 2020-10-02 10:38 | Palliative Care Consultation ---
Date of Consultation October 02, 2020 Assessment & Plan (1) Palliative care encounter: 69-year-old male with acute hypoxic respiratory failure due to Covid 19 pneumonia, confusion and delirium. Patient was intubated on 09/25. Unfortunately, this individual continues to require high amounts of sedation due to agitation. Needed to be intubated for agitation encephalopathy and hypoxia on 09/25/2020. Lengthy conversation with family regarding goals of care. Pt indicated that she is "not ready for him to " and wishes to pursue tracheostomy, which was discussed at length with Dr. Buck, who will be performing the trach at the bedside tomorrow. The patient has had a previous tr acheostomy that was placed 10 years ago for management of meningitis and his stated "He has been through this before". The trach was placed at the [facility] ([facility] in [place]. Continue with aggressive measures. We will continue to follow. (2) Acute metabolic encephalopathy: (3) Acute on chronic diastolic CHF (congestive heart failure): (4) Hypoxia: History of Present Illness Reason for Consultation: goals of care Requesting Physician: Dr. Baez Attending Physician: Alexsander Tuttle MD History of Present Illness 69-year-old male with acute hypoxic respiratory failure due to Covid 19 pneumonia, confusion and delirium. Patient was intubated on 09/25. Unfortunately, this individual continues to require high amounts of sedation due to agitation. Needed to be intubated for agitation encephalopathy and hypoxia on 09/25/2020. Lengthy conversation with family regarding goals of care. Pt indicated that she is "not ready for him to " and wishes to pursue tracheostomy, which was discussed at length with Dr. Buck, who will be performing the trach at the bedside tomorrow. The patient has had a previous tracheostomy that was placed 10 years ago for management of meningitis and his stated "He has been through this before". The trach was placed at the [facility] ([facility] in [place]. We will continue to follow. Allergies Allergy/AdvReac Type Severity Reaction Status Date / Time tetracycline Allergy Unknown SORES IN Verified 09/21/20 22:09 MOUTH aspirin AdvReac Intermediate ulcer Verified 09/21/20 22:09 Home Medications Medication Instructions Recorded Confirmed Type cholecalciferol (vitamin D3) 100 4,000 units PO DAILY 03/09/19 09/21/20 History mcg (4,000 unit) capsule hydrocortisone 1 % topical cream 1 appln TOP TID PRN 03/09/19 09/21/20 History multivitamin 1 tab PO DAILY #30 tab 03/09/19 09/21/20 Rx vitamin B complex 1 cap PO DAILY #30 cap 03/09/19 09/21/20 Rx ferrous sulfate 325 mg (65 mg 325 mg PO DAILY 11/23/19 09/21/20 History iron) tablet allopurinol 100 mg tablet 100 mg PO DAILY #90 tab 12/06/19 09/21/20 Rx levocetirizine 5 mg tablet 5 mg PO DAILY #90 tab 12/07/19 09/21/20 Rx duloxetine 60 mg capsule,delayed 60 mg PO DAILY #90 cap 12/28/19 09/21/20 Rx release metoprolol tartrate 25 mg tablet 25 mg PO BID #180 tab 12/28/19 09/21/20 Rx alfuzosin 10 mg tablet,extended 10 mg PO DAILY #90 tab 05/08/20 09/21/20 Rx release 24 hr levothyroxine 25 mcg tablet 25 mcg PO DAILY #90 tab 06/18/20 09/21/20 Rx pregabalin 100 mg capsule 100 mg PO TID #270 cap 06/19/20 09/21/20 Rx lansoprazole 30 mg capsule,delayed 30 mg PO DAILY #90 cap 07/03/20 09/21/20 Rx release mirabegron 50 mg tablet,extended 50 mg PO DAILY #90 tab 07/30/20 09/21/20 Rx release 24 hr solifenacin 10 mg tablet 10 mg PO DAILY #90 tab 07/30/20 09/21/20 Rx oxycodone-acetaminophen 10 mg-325 1 tab PO TID PRN #90 tab 09/11/20 09/21/20 Rx mg tablet ropinirole 2 mg PO HS 09/21/20 09/21/20 History Patient History Medical History (Updated 10/02/20 @ 10:38 by AGNES Mcmullen) Acute renal insufficiency Anemia Aortic valve sclerosis Arthritis ATN (acute tubular necrosis) BMI 40.0-44.9, adult BPH (benign prostatic hyperplasia) BPH with obstruction/lower urinary tract symptoms Cellulitis Chronic pain of both knees Chronic pain syndrome Erectile dysfunction Fever Foot drop, left Gait disturbance Gout Hepatic steatosis History of dysplastic nevus Hypokalemia Hypotension Hypoxia Irritable bowel syndrome (IBS) Leukocytosis Lower urinary tract symptoms (LUTS) Lumbar spinal stenosis Lumbar spine tumor MGUS (monoclonal gammopathy of unknown significance) Nephrolithiasis Opioid dependence GUS on CPAP Palliative care encounter Periodic limb movement sleep disorder Pneumonia Restrictive lung disease Sepsis Septic shock Septicemia due to group B Streptococcus SIRS (systemic inflammatory response syndrome) Vitamin D deficiency Surgical History History of arthroscopy of knee right knee History of back surgery remove spinal cord tumor, 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 History of cataract surgery History of hemicolectomy History of lithotripsy renal History of liver biopsy due to elevated LFTs, states that in evidence of damage from heavy metal exposure Family History Father Blood clots in biliary tract following procedure father from embolic stroke after episodes of DVT Mother Cardiac disorder Diabetes Hypertension Kidney stone Brother Kidney stone Social History Smoking Status: Never smoker Age Started Using Tobacco: 17; Age Quit Using Tobacco: 23; packs per day: 1; Years Smoked: 26; Number of Years Since Quit: 35; Second Hand Exposure: No; Hx Alcohol Use: Yes Alcohol type: beer Alcohol Intake Frequency Comment: 2-3 per day Hx Substance Use: No Preferred Language: Azeri Communication Ability: Impaired Visual Impairment: Diminished Hearing Ability: Hard of Hearing Cone Treater Required: No Beliefs That Will Affect Care: None marital status: Current Living Situation: Spouse current occupational status: retired 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 Feels Safe at Home: Yes Childhood Exposure to Second-Hand Smoke: Yes caffeine: Yes Dental Care, Regularly: Yes Physical Activity Frequency: Does not Exercise Physical Activity Frequency Comment: DUE TO PHYSICAL CONDITION Seatbelt Use: always Sunscreen Use: Yes (SOMETIMES) Assistive Devices: Oxygen - Continuous Results & Data ([facility]) Vital Signs (Past 12 Hours) Vital Signs Pulse Resp Pulse Ox 10/02/20 07:45 89 29 H 90 10/02/20 04:19 86 29 H 90 10/02/20 00:00 71 25 H 90 PG Care Time/CCT Total # of Minutes Spent Total Time Spent with Patient: Total time spent is greater than 50% in coordination of care (as documented) at patient's floor/unit and/or counseling patient: 100 Coding Level of Care Code 12154 Inpt Consult Level 4 Diagnoses Palliative care encounter Z51.5 Acute metabolic encephalopathy G93.41 Acute on chronic diastolic CHF (congestive heart failure) I50.33 Hypoxia R09.02 Time Spent (min) 100 Time Spent Midlevel Total time spent 100 minutes with > 50% of that time spent assessing the patient, discussing goals of care with the patients and collaborating with the IDT
[2020-10-02] MEDS ORDERED: STAT IV Infusion **Titration per Protocol STA (11:08)
[2020-10-02] MEDS: PEPTAMEN INTENSE VHP 1.0 CAL 1,000 ML BAG OG SCH (11:10)
[2020-10-02] MEDS: PHENYLEPHRINE HCL IV SCH (11:33)
[2020-10-02] MEDS: DEXTROSE 5% IV SCH (11:33)
[2020-10-02] MEDS: NOREPINEPHRINE/D5W 8 MG/508 ML BAG IV SCH (11:33)
[2020-10-02] MEDS: DEXMEDETOMIDINE HCL 200 MCG in SODIUM CHLORIDE 0.9% 48 ML IV SCH ×3 (11:39→21:35)
--- NOTE | 2020-10-02 11:46 | Critical Care Progress Note ---
Date of Service October 02, 2020 Assessment & Plan (1) Acute metabolic encephalopathy: Reason Critically Ill: 69-year-old male with acute hypoxic respiratory failure due to Covid 19 pneumonia, confusion and delirium. Needed to be intubated for agitation encephalopathy and hypoxia on 09/25/2020 Neuro - Patient continues to require heavy amounts of sedation due to agitation. He has a history of delirium related to hospitalization. He also has a history of alcohol use. We are transitioning him to Precedex. Trying to wean off propofol and fentanyl as able. Transition thiamine to p.o. Continue Klonopin 0.25 mg p.o. twice daily. Continue Lyrica 100 mg 3 times daily. Cardiac -he has been off pressors for the last 24 hours. He did have a history of recent atrial flutter. He is currently on therapeutic anticoagulation and metoprolol 25 mg 3 times a day. No issues with his heart rate today. Continue. Continue with as needed diuresis. Respiratory - Vent dependent respiratory failure --> acute hypoxic respiratory failure. Intubation day #7. He has completed 10 days worth of Decadron. No remdesivir plasma was given given his presentation 9 days into his illness. Family is wishing to pursue tracheostomy. Will consult ENT for evaluation of tracheostomy given his history of previous tracheostomy. He does have ongoing fevers and has an MRSA culture that is positive from the sputum twice. He is currently on vancomycin and Rocephin. We are consulting infectious disease. Procalcitonin yesterday was 0.26. His imaging is not really consistent with an MRSA pneumonia. I suspect there may be a degree of colonization, but difficult to determine given ongoing fevers. Fevers likely related to Covid inflammatory response. GI - Tube feeds. Triglyceride level of 311. We will give him a soapsuds enema as he has not had a bowel movement in several days. Continue MiraLAX, senna and docusate. RENAL/LYTES -BUN is trending upwards to 75. No evidence of active GI bleed. We have been restricting IV fluids. Will be more liberal with his tube feed fluid bolus. Continue to replace electrolytes per the ICU protocol. ENDO - No history of diabetes, ICU hyperglycemic protocol Hypothyroidcontinue Synthroid when able HEME - History of anemia, H&H currently stable at this time and no indication for transfusion. Monitor CBCs ID - Consulting infectious disease for MRSA in the sputum. Blood cultures from 09/30. Urine cultures from 09/30 - as well. --Prophylaxis VTE: Lovenox 100mg BID GI: Pepcid Lines: Right IJ 09/25, right radial 09/25, positive Rodriguez, intubated 09/25 Diet: Tube feeding Overall prognosis is extremely poor. Appreciate palliative care input. Likely will need tracheostomy in the very near future. I have personally spent additional 39 minutes of critical care time in the direct management of this patient. This is a life/limb threatening event. This includes time spent evaluating patient, direct bedside care, chart review, placing orders, interpretation of diagnostic studies, discussion with consultants, patient, and family members, as well as other required patient management activities. This time is exclusive of all separately billable procedures, and teaching time and separate from and in addition to any other critical care service time. Please note the above document was generated using voice recognition software. It may contain grammatical, syntax or spelling errors. (2) Acute on chronic diastolic CHF (congestive heart failure): (3) Acute respiratory failure with hypoxia: (4) Pneumonia due to COVID-19 virus: (5) GUS on CPAP: Admission and Anticipated Discharge Date Admission Date: September 22, 2020 Subjective Patient continues to be heavily sedated. No significant overnight events. Spiking fevers up to 101.1. No bowel movements per RN. Review of Systems Review of Systems: Unobtainable due to endotracheal tube and Unobtainable due to reduced consciousness Physical Exam Constitutional: + frail appearing and + mechanically ventilated Eyes: PERRL, conjunctivae normal, anicteric sclerae ENMT: external ear and nose normal, oropharynx normal Neck: normal visual inspection Respiratory: Coarse breath sounds on the ventilator. Cardiovascular: RRR, no murmur, no edema Gastrointestinal (Abdomen): normal bowel sounds, soft, nontender, no hepatosplenomegaly Musculoskeletal: no cyanosis or clubbing, extremities motor strength 5/5 Skin: no rashes, warm and dry Neurologic: Unable to assess due to intubation status. Psychiatric: Unable to assess due to intubation status. Results & Data Results & Data ([facility]) Vital Signs (Past 12 Hours) Vital Signs Pulse Resp Pulse Ox 10/02/20 07:45 89 29 H 90 10/02/20 04:19 86 29 H 90 10/02/20 00:00 71 25 H 90 I reviewed the vital signs, labs and imaging. Coding Level of Care Code Critical Care 1st 30-74 mins Diagnoses Acute metabolic encephalopathy G93.41 Acute on chronic diastolic CHF (congestive heart failure) I50.33 Acute respiratory failure with hypoxia J96.01 Pneumonia due to COVID-19 virus U07.1; J12.89 GUS on CPAP G47.33; Z99.89 Time Spent (min) 39
--- NOTE | 2020-10-02 12:30 | Pharmacy Report ---
Pharmacy Abx Dose Short Note - Date of Service October 02, 2020 - Assessment & Plan Assessment * 69 year old M receiving VANCOMYCIN and CEFTRIAXONE for treatment of COVID10 viral pna with superimposed bacterial pna * Pharmacy is consulted to dose vancomycin * Sputum cxs from 09/25 + 09/30 growing MRSA (sens both tetracycline, vancomycin CASEY = 2), the cx from 09/25 had also grown Grp C strep however this was not cultured out on 09/30 * I have contacted [facility] to determine if vanco CASEY can be determined via broth dilution as CASEY 2 * Today is Day 3 Vancomycin therapy. * He had received Doxycyclin 09/28 -09/30, Rocephin 09/26 - 09/29, Zosyn 09/30 - 10/01, Rocephin 10/01 - today * ID may be consulted to assist w/ abx recommendations given ongoing fever, which may be attributed to COVID19 vs new focus of infxn. WBC stable - not climbing, last dose dexamethasone 10/01 * SCr has trended upwards however UOP remains > 0.5mL/kg/hr, MAPs mostly > 65 however are trending lower now Plan Vancomycin * Trough level obtained prior to 3rd maint dose of 1250mg (~11.4mg/kg) Q 12 hrs. Level was supratherapeutic (27.9mcg/mL). Level was drawn at the appropriate time. Prior doses hung on schedule. * Random level obtained this AM ~ 11 hrs after trough. This level was still supratherapeutic (23mcg/mL) * Estimated half-life ~36 hours * Level will likely fall b/w 15-20 at 0000 12/30. Will give 1250mg IV x 1 at that time and draw random level in 36 hrs to guide redosing. * Goal trough for pulm infxn: 15-20mcg/mL (AUC dosing not permissible w/ changing renal fxn) Pharmacy will continue to follow and will adjust dose/frequency as necessary. Thank you.
[2020-10-02] MEDS: cefTRIAXone SODIUM 2,000 MG in DEXTROSE 5% 50 ML IV SCH (14:42)
--- NOTE | 2020-10-02 18:15 | Hospitalist Progress Note ---
Date of Service October 02, 2020 Assessment & Plan (1) Pneumonia due to COVID-19 virus: -Dexamethasone 6mg IV daily, initiated on 09/22/2020 no Remdesivir or plasma as he presented 9 days into illness -Albuterol HFA PRN with acute hypoxic respiratory failure treated with BIPAP, tolerated well initially 09/25: intubated and ventilated with fever will change antibiotics and have culture of blood and urine, since does have +mrsa nasal swab was initially given vancomycin, ceftriaxone continues and ID consult ordered (2) Acute respiratory failure with hypoxia: Secondary to Covid-19 PNA, stable with BIPAP on 09/24 however, he deteriorated, required intubation on 09/[address] Sanchez Vent settings assist control respiratory rate 24 tidal volume 400 PEEP of 5, FiO2 50% (3) Acute metabolic encephalopathy: has a history of delirium when hospitalized he drinks at least 3 beers a day. now with fever change antibiotics to vancomycin and ceftriaxone Previously on Propofol and fentanyl lightening sedation scheduled clonazepam Lyrica added as he takes chronically (4) Acute kidney injury: Cr down to 1.36, electrolytes stable making adequate urine, use Lasix PRN for negative fluid balance (5) Acute on chronic diastolic CHF (congestive heart failure): related to aortic stenosis lasix given 09/22. still appears euvolemic, use Lasix PRN for negative fluid balance (6) Hyponatremia: was probably related to CHF - corrected after diuresis. follow per iodically (7) Vitamin D deficiency: -Continue supplementation (8) Restrictive lung disease: fortunately no hypercapnea on ABG (9) GUS on CPAP: Chronic -again fortunately no hypercapnea (10) Gout: Chronic. Stable. 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 continue metoprolol and follow (13) Hypothyroidism: Chronic. Stable. Last TSH in 10/24 = 3.95 -Continue Synthroid 25mcg po daily (14) Opioid dependence: Patient with chronic pain and neuropathy -Continue Lyrica 100mg po TID giving Morphine/Fentanyl to prevent further withdrawal symptoms (15) Acid reflux: Chronic. Stable -Pepcid 20mg IV BID - may have effect on disease severity in Covid-19 (16) DVT prophylaxis: lovenox, therapeutic dosing (17) Atrial flutter: intermittent, use Amiodarone if needed, metoprolol bid 25 continues (18) MRSA (methicillin resistant staphylococcus aureus) pneumonia: MRSA nasal swab positive vancomycin to Rocephin for antibiotic coverage Admission and Anticipated Discharge Date Admission Date: September 22, 2020 Subjective Pt continues with tempertures not really helped with antibiotic changes, did not really ever clear, does have some gram positive sputum cultures , vent specimen grew mrsa Review of Systems Review of Systems: Unobtainable due to endotracheal tube Physical Exam Physical Exam: The patient appeared critically ill Vital signs as documented. Lungs are coarse bilaterally Cardiac exam, Rhythm is regular.. No murmurs, rubs or gallops. Abdominal exam reveals normal bowel sounds, soft Extremities are nonedematous and both pedal pulses are normal. Neurologic exam is does raise his eyebrows to voice however does not follow commands Skin is without bruises or rashes Results & Data Results & Data ([facility]) Vital Signs (Past 12 Hours) Vital Signs Temp Pulse Resp BP Pulse Ox 10/02/20 15:20 80 29 H 90 10/02/20 11:30 101.5 F H 95 H 97/55 L 92 10/02/20 11:20 94 H 25 H 92 10/02/20 11:00 101.5 F H 92 H 88/48 L 90 10/02/20 10:00 101.7 F H 82 117/57 L 91 10/02/20 09:00 101.7 F H 108 H 177/72 H 89 L 10/02/20 08:00 101.7 F H 96 H 154/64 H 91 10/02/20 07:45 89 29 H 90 10/02/20 07:00 101.7 F H 88 147/66 H 90 PG Care Time/CCT Total # of Minutes Spent Total Time Spent with Patient: Total time spent is greater than 50% in coordination of care (as documented) at patient's floor/unit and/or counseling patient: Coding Level of Care Code 55836 Subseq Hosp Care Lvl 2 Diagnoses Pneumonia due to COVID-19 virus U07.1; J12.89 Acute respiratory failure with hypoxia J96.01 Acute metabolic encephalopathy G93.41 Acute kidney injury N17.9 Acute on chronic diastolic CHF (congestive heart failure) I50.33 Hyponatremia E87.1 Vitamin D deficiency E55.9 Restrictive lung disease J98.4 GUS on CPAP G47.33; Z99.89 Gout M10.9 Gout site: unspecified site Gout etiology: unspecified cause Chronicity: unspecified BPH with obstruction/lower urinary tract symptoms N40.1; N13.8 Hypertension I10 Hypertension type: essential hypertension Hypothyroidism E03.9 Hypothyroidism type: unspecified Opioid dependence F11.20 Substance use status: uncomplicated Acid reflux K21.9 Esophagitis presence: esophagitis presence not specified DVT prophylaxis Z29.9 Atrial flutter I48.92 MRSA (methicillin resistant staphylococcus aureus) pneumonia J15.212 (1) Gout Gout site: unspecified site Gout etiology: unspecified cause Chronicity: uns pecified Qualified Code(s): M10.9 - Gout, unspecified (2) Hypertension Hypertension type: essential hypertension Qualified Code(s): I10 - Essential (primary) hypertension (3) Hypothyroidism Hypothyroidism type: unspecified Qualified Code(s): E03.9 - Hypothyroidism, unspecified (4) Opioid dependence Substance use status: uncomplicated Qualified Code(s): F11.20 - Opioid dependence, uncomplicated (5) Acid reflux Esophagitis presence: esophagitis presence not specified Qualified Code(s): K21.9 - Gastro-esophageal reflux disease without esophagitis
[2020-10-02] MEDS: fentaNYL citrate 2,500 MCG/250 ML BAG IV SCH ×2 (21:25→23:48)
[2020-10-02] MEDS: FAMOTIDINE 20 MG TAB PO SCH (21:31)
[2020-10-03] MEDS ORDERED: VANCOMYCIN HCL 1,250 MG in SODIUM CHLORIDE 0.9% 250 ML IV ONE
[2020-10-03] MEDS: guaiFENesin SUGAR FREE 100 MG/5 ML UDC PO SCH ×3 (00:43→20:34)
[2020-10-03] MEDS: fentaNYL citrate 2,500 MCG/250 ML BAG IV SCH ×2 (00:43→23:49)
[2020-10-03] MEDS: TUBE FEEDING WATER FLUSH GT SCH ×4 (00:44→22:46)
[2020-10-03] MEDS: DEXMEDETOMIDINE HCL 200 MCG in SODIUM CHLORIDE 0.9% 48 ML IV SCH ×5 (01:58→22:06)
[2020-10-03 04:53] LABS: iSTAT Art Bld Gas pCO2 Correct 51 mmHg (35-46); iSTAT Art Bld Gas pH Corrected 7.306 (7.35-7.45); iSTAT Arterial Blood Gas HCO3 25 meg/L (19-24); iSTAT Arterial Blood Gas pCO2 46 mmHg (35-46); iSTAT Arterial Blood Gas pH 7.34 (7.35-7.45); iSTAT Arterial Blood Gas pO2 73 mmHg (80-95); iSTAT Arterial Blood Gas pO2 C 85; iSTAT Carbon Dioxide 26 mmol/L (24-31); iSTAT FiO2 50 %; iSTAT Hematocrit 36 % (42-52); iSTAT Hemoglobin 12.2 g/dl (14.0-18.0); iSTAT Potassium 5.5 mmol/L (3.3-5.0); iSTAT Site Art Line; iSTAT Sodium 144 mmol/L (135-144)
[2020-10-03] MEDS: METOPROLOL TARTRATE 1 MG/ML VIAL IV PRN (05:48)
[2020-10-03] MEDS: propofoL 1,000 MG/100 ML VIAL IV SCH ×3 (05:53→22:46)
[2020-10-03] MEDS: LEVOTHYROXINE SODIUM 25 MCG TABLET PO SCH (06:35)
[2020-10-03] MEDS: ACETAMINOPHEN SUSP 325 MG/10.15 ML UDC PO PRN ×2 (06:35→13:02)
[2020-10-03] MEDS: ALBUT/IPRATROP 3MG/0.5MG NEB 3 ML VIAL NEB SCH ×3 (07:47→23:11)
--- NOTE | 2020-10-03 08:04 | Hospitalist Progress Note ---
Date of Service October 03, 2020 Assessment & Plan (1) Pneumonia due to COVID-19 virus: -Dexamethasone 6mg IV daily, initiated on 09/22/2020 no Remdesivir or plasma as he presented 9 days into illness -Albuterol HFA PRN with acute hypoxic respiratory failure treated with BIPAP, tolerated well initially 09/25: intubated and ventilated ID consult 10/02/30 Recommendations: - Recommend stopping Ceftriaxone IV. - Recommend continuing Vancomycin IV for 10 - 14 days. Bacterial superinfection after COVID infection has been well documented and I think it is appropriate to actively treat given patient severity. - Persistent fevers are of concern, Would consider CT chest with/without contra st and would highly recommend bronchoscopy with samples for AFB, fungus, and bacteria to help r/o any additional microbial causes. - we will not actively monitor patient, please call with additional questions or recommendations. Now on Caspofungin, Cefepime and Vancomycin (2) Acute respiratory failure with hypoxia: Secondary to Covid-19 PNA, stable with BIPAP on 09/24 however, he deteriorated, required intubation on 09/[address] Sanchez Vent settings assist control respiratory rate 24 tidal volume 400 PEEP of 5, FiO2 50% (3) Acute metabolic encephalopathy: has a history of delirium when hospitalized he drinks at least 3 beers a day. now with fever change antibiotics to vancomycin and ceftriaxone Previously on Propofol and fentanyl lightening sedation scheduled clonazepam Lyrica added as he takes chronically (4) Acute kidney injury: Cr down to 1.36, electrolytes stable making adequate urine, use Lasix PRN for negative fluid balance (5) Acute on chronic diastolic CHF (congestive heart failure): related to aortic stenosis appears euvolemic, use Lasix PRN for negative fluid balance (6) Hyponatremia: was probably related to CHF - corrected after diuresis. follow periodically (7) Vitamin D deficiency: -Continue supplementation (8) Restrictive lung disease: fortunately no hypercapnea on ABG (9) GUS on CPAP: Chronic -again fortunately no hypercapnea (10) Gout: Chronic. Stable. 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 continue metoprolol and follow (13) Hypothyroidism: Chronic. Stable. Last TSH in 10/24 = 3.95 -Continue Synthroid 25mcg po daily (14) Opioid dependence: Patient with chronic pain and neuropathy -Continue Lyrica 100mg po TID giving Morphine/Fentanyl to prevent further withdrawal symptoms (15) Acid reflux: Chronic. Stable -Pepcid 20mg IV BID - may have effect on disease severity in Covid-19 (16) DVT prophylaxis: lovenox, therapeutic dosing (17) Atrial flutter: intermittent, use Amiodarone if needed, metoprolol bid 25 continues (18) MRSA (methicillin resistant staphylococcus aureus) pneumonia: MRSA nasal swab positive vancomycin to Rocephin for antibiotic coverage Admission and Anticipated Discharge Date Admission Date: September 22, 2020 Subjective Pt continues with tempertures not really helped with antibiotic changes, did not really ever clear, does have some gram positive sputum cultures , vent specimen grew mrsa Review of Systems Review of Systems: Unobtainable due to endotracheal tube Physical Exam Physical Exam: The patient appeared chronically ill Vital signs as documented. Still remains febrile some mild hypotension requiring pressor support Lungs are bilateral decreased at bases Cardiac exam, Rhythm is regular.. No murmurs, rubs or gallops. Abdominal exam reveals hypoactive bowel sounds Extremities are mildly edematous Neurologic exam unable to be assessed due to level of sedation Skin is without bruises or rashes Results & Data Results & Data ([facility]) Vital Signs (Past 12 Hours) Vital Signs Temp Pulse Resp BP Pulse Ox 10/03/20 05:48 135 H 162/80 H 10/03/20 05:45 103.1 F H 108 H 90 10/03/20 05:30 102.9 F H 97 H 92 10/03/20 05:15 102.9 F H 88 91 10/03/20 05:00 102.7 F H 88 25 H 121/61 90 10/03/20 04:35 86 28 H 90 10/03/20 04:00 102.6 F H 90 24 111/51 L 90 10/03/20 03:00 102.2 F H 88 24 155/64 H 90 10/03/20 02:01 102.0 F H 97 H 24 161/76 H 92 10/03/20 01:30 102.0 F H 97 H 138/54 L 87 L 10/03/20 00:00 102.0 F H 90 174/67 H 93 10/02/20 23:45 83 32 H 93 10/02/20 23:00 101.8 F H 84 164/71 H 93 10/02/20 22:00 101.5 F H 97 H 182/76 H 91 10/02/20 21:00 101.3 F H 96 H 168/73 H 92 10/02/20 20:29 94 H 34 H 92 PG Care Time/CCT Total # of Minutes Spent Total Time Spent with Patient: Total time spent is greater than 50% in coordination of care (as documented) at patient's floor/unit and/or counseling patient: Coding Level of Care Code 19778 Subseq Hosp Care Lvl 3 Diagnoses Pneumonia due to COVID-19 virus U07.1; J12.89 Acute respiratory failure with hypoxia J96.01 Acute metabolic encephalopathy G93.41 Acute kidney injury N17.9 Acute on chronic diastolic CHF (congestive heart failure) I50.33 Hyponatremia E87.1 Vitamin D deficiency E55.9 Restrictive lung disease J98.4 GUS on CPAP G47.33; Z99.89 Gout M10.9 Chronicity: unspecified Gout etiology: unspecified cause Gout site: unspecified site BPH with obstruction/lower urinary tract symptoms N40.1; N13.8 Hypertension I10 Hypertension type: essential hypertension Hypothyroidism E03.9 Hypothyroidism type: unspecified Opioid dependence F11.20 Substance use status: uncomplicated Acid reflux K21.9 Esophagitis presence: esophagitis presence not specified DVT prophylaxis Z29.9 Atrial flutter I48.92 MRSA (methicillin resistant staphylococcus aureus) pneumonia J15.212 (1) Opioid dependence Substance use status: uncomplicated Qualified Code(s): F11.20 - Opioid dependence, uncomplicated (2) Gout Chronicity: unspecified Gout etiology: unspecified cause Gout site: unspecified site Qualified Code(s): M10.9 - Gout, unspecified (3) Hypothyroidism Hypothyroidism type: unspecified Qualified Code(s): E03.9 - Hypothyroidism, unspecified (4) Acid reflux Esophagitis presence: esophagitis presence not specified Qualified Code(s): K21.9 - Gastro-esophageal reflux disease without esophagitis (5) Hypertension Hypertension type: essential hypertension Qualified Code(s): I10 - Essential (primary) hypertension
[2020-10-03] MEDS: POLYETHYLENE (MIRALAX) 17 GM PACK PO SCH (08:31)
[2020-10-03] MEDS: DOCUSATE SODIUM SYRUP 100 MG/10 ML UDC PO SCH (08:31)
[2020-10-03] MEDS: MULTI VIT W/MINERALS LIQUID 15 ML UDP PO SCH (08:31)
[2020-10-03] MEDS: FAMOTIDINE 20 MG TAB PO SCH ×2 (08:32→20:30)
[2020-10-03] MEDS: allopurinoL 100 MG TAB PO SCH (08:34)
[2020-10-03] MEDS: THIAMINE HCL 100 MG TAB NG SCH (08:34)
[2020-10-03] MEDS: SENNOSIDES 8.8 MG/5 ML UDC PO SCH (08:35)
[2020-10-03] MEDS: METOPROLOL TARTRATE 25 MG TAB PO SCH ×2 (08:42→20:29)
[2020-10-03 08:45] LABS: Hematocrit (blood only) 39.5 % (42-52); Hemoglobin 12.2 g/dL (14.0-18.0); Mean Corpuscular Hemoglobin 28.3 pg (25-34); Mean Corpuscular Hgb Conc 30.9 g/dL (32-36); Mean Corpuscular Volume 91.6 fL (80-100); Platelet Count 172 K/uL (130-400); RDW Coefficient of Variation 15.2 % (11.5-14.5); RDW Standard Deviation 51.3 fL (36.4-46.3); Red Blood Count 4.31 M/uL (4.7-6.1); White Blood Count 18.66 K/uL (4.8-10.8)
[2020-10-03 08:55] LABS: INR 1.3 (0.9-1.1); Partial Thromboplastin Time 28.4 Seconds (21.0-31.0); Prothrombin Time 13.1 Seconds (9.0-12.0)
[2020-10-03] MEDS: PREGABALIN 100 MG CAP PO SCH ×3 (09:21→20:34)
[2020-10-03 09:28] LABS: BUN Creatinine Ratio 51.8 (10-20); Calcium 9.2 mg/dl (8.5-10.1); Creatinine Clr Calc Pharmacy 58.1 ml/min; Est GFR (African American) 61.3; Est GFR (Non-African American) 52.9; Magnesium 2.3 mg/dl (1.8-2.4); Potassium 5.3 mmol/L (3.5-5.1)
[2020-10-03 09:29] LABS: Phosphorus 3.6 mg/dl (2.5-4.9)
[2020-10-03 09:43] LABS: Basophils # (auto) 0.08 K/uL (0-0.2); Basophils % (auto) 0.4 %; Eosinophils % (auto) 0.5 %; Immature Granulocytes # (auto) 0.44 K/uL (0.00-0.02); Immature Granulocytes % (auto) 2.4 %; Lymphocytes # (auto) 3.17 K/uL (1.2-3.4); Monocytes # (auto) 1.01 K/uL (0.11-0.59); Monocytes % (auto) 5.4 %; Neutrophils # (auto) 13.86 K/uL (1.4-6.5); Neutrophils % (auto) 74.3 %
[2020-10-03] MEDS ORDERED: NORMOSOL-R 500 ML IV ONE (09:59)
[2020-10-03] MEDS ORDERED: STAT IV Infusion **Titration per Protocol STA (10:00)
[2020-10-03 10:05] LABS: Appearance Urine Cloudy (Clear); Bacteria Urine Automated Negative (Negative); Bilirubin Urine Negative (Negative); Blood Urine Negative (Negative); Color Urine Dark Yellow; Epithelial Cell Urine Auto 20-30 /lpf (0-5); Glucose Urine UA Negative (Negative); Ketones Urine Negative (Negative); Leukocyte Esterase Urine Negative (Negative); Nitrite Urine Negative (Negative); Protein Urine 1+ (Negative); Specific Gravity Urine 1.022 (1.000-1.030); Urobilinogen Urine Negative (Negative)
[2020-10-03] MEDS ORDERED: clonazePAM 0.5 MG TAB PO ONE (10:15)
[2020-10-03] MEDS: PHENYLEPHRINE HCL 40 MG in DEXTROSE 5% 500 ML IV SCH (10:27)
--- NOTE | 2020-10-03 10:51 | Critical Care Progress Note ---
Date of Service October 03, 2020 Assessment & Plan (1) Acute metabolic encephalopathy: Reason Critically Ill: 69-year-old male with acute hypoxic respiratory failure due to Covid 19 pneumonia, confusion and delirium. Needed to be intubated for agitation encephalopathy and hypoxia on 09/25/2020 Neuro - Patient continues to require heavy amounts of sedation due to agitation. He has a history of delirium related to hospitalization. He also has a history of alcohol use. Continue to use Precedex to wean off propofol and fentanyl. Continue p.o. thiamine. Klonopin 0.25 mg p.o. twice daily has been discontinued. Continue Lyrica 100 mg 3 times daily. Cardiac -He did have a history of recent atrial flutter. He is currently on therapeutic anticoagulation and metoprolol 25 mg 3 times a day. He is having hypotension likely secondary due to underlying sepsis and COVID-19 infection. Maintain mean arterial pressures of 65. Phenylephrine ordered. Respiratory - Vent dependent respiratory failure --> acute hypoxic respiratory failure. Intubation day #8. He has completed 10 days worth of Decadron. No remdesivir plasma was given given his presentation 9 days into his illness. Family is wishing to pursue tracheostomy. Will consult ENT for evaluation of tracheostomy given his history of previous tracheostomy. He does have ongoing fevers and has an MRSA culture that is positive from the sputum twice. He is currently on vancomycin and Rocephin. We have escalated to cefepime from Rocephin. I am starting him on caspofungin. Infectious disease consult is pending. We are repeating a procalcitonin today. Blood cultures and urine cultures from today are pending. His imaging is not really consistent with an MRSA pneumonia. I suspect there may be a degree of colonization, but difficult to determine given ongoing fevers. Fevers likely related to Covid inflammatory response. I do not think he is stable for tracheostomy at this time given his ongoing fevers and increasing vent requirements. We will reassess the situation daily. GI - Tube feeds. Triglyceride level of 311. Received soapsuds enema yesterday. Continue MiraLAX, senna and docusate. RENAL/LYTES -BUN is trending upwards to 75. No evidence of active GI bleed. We have been restricting IV fluids. Will be more liberal with his tube feed fluid bolus. Continue to replace electrolytes per the ICU protocol. We will give a 500 mL bolus of Normosol. His potassium is creeping upwards. Monitor for signs of adrenal insufficiency given that he was on a prolonged course of Decadron. ENDO - No history of diabetes, ICU hyperglycemic protocol Hypothyroidcontinue Synthroid when able HEME - History of anemia, H&H currently stable at this time and no indication for transfusion. Monitor CBCs ID - Awaiting ID consult. See above. --Prophylaxis VTE: Lovenox 100mg BID GI: Pepcid Lines: Right IJ 09/25, right radial 09/25, positive Rodriguez, intubated 09/25 Diet: Tube feeding Overall prognosis is extremely poor. Appreciate palliative care input. Likely will need tracheostomy in the very near future. I have personally spent additional 41 minutes of critical care time in the direct management of this patient. This is a life/limb threatening event. This includes time spent evaluating patient, direct bedside care, chart review, placing orders, interpretation of diagnostic studies, discussion with consultants, patient, and family members, as well as other required patient management activities. This time is exclusive of all separately billable procedures, and teaching time and separate from and in addition to any other critical care service time. Please note the above document was generated using voice recognition software. It may contain grammatical, syntax or spelling errors. (2) Acute on chronic diastolic CHF (congestive heart failure): (3) Acute respiratory failure with hypoxia: (4) Pneumonia due to COVID-19 virus: (5) GUS on CPAP: (6) Palliative care encounter: (7) Hypotension (arterial): Admission and Anticipated Discharge Date Admission Date: September 22, 2020 Subjective Patient continues to be heavily sedated. Spiking high-grade fevers. Requiring vasopressor support. Review of Systems Review of Systems: Unobtainable due to endotracheal tube and Unobtainable due to reduced consciousness Physical Exam Constitutional: + frail appearing and + mechanically ventilated Eyes: PERRL, conjunctivae normal, anicteric sclerae ENMT: external ear and nose normal, oropharynx normal Neck: normal visual inspection Respiratory: Coarse breath sounds on the ventilator. Cardiovascular: RRR, no murmur, no edema Gastrointestinal (Abdomen): normal bowel sounds, soft, nontender, no hepatosplenomegaly Musculoskeletal: no cyanosis or clubbing, extremities motor strength 5/5 Skin: no rashes, warm and dry Neurologic: Unable to assess due to intubation status. Psychiatric: Unable to assess due to intubation status. Results & Data Results & Data ([facility]) Vital Signs (Past 12 Hours) Vital Signs Temp Pulse Resp BP Pulse Ox 10/03/20 10:40 101.5 F H 75 25 H 166/67 H 96 10/03/20 10:35 101.5 F H 75 25 H 96 10/03/20 10:30 101.7 F H 77 25 H 95 10/03/20 10:20 101.7 F H 80 25 H 94 10/03/20 07:53 137 H 28 H 97 10/03/20 05:48 135 H 162/80 H 10/03/20 05:45 103.1 F H 108 H 90 10/03/20 05:30 102.9 F H 97 H 92 10/03/20 05:15 102.9 F H 88 91 10/03/20 05:00 102.7 F H 88 25 H 121/61 90 10/03/20 04:35 86 28 H 90 10/03/20 04:00 102.6 F H 90 24 111/51 L 90 10/03/20 03:00 102.2 F H 88 24 155/64 H 90 10/03/20 02:01 102.0 F H 97 H 24 161/76 H 92 10/03/20 01:30 102.0 F H 97 H 138/54 L 87 L 10/03/20 00:00 102.0 F H 90 174/67 H 93 10/02/20 23:45 83 32 H 93 10/02/20 23:00 101.8 F H 84 164/71 H 93 I reviewed the vital signs, labs and imaging Coding Level of Care Code Critical Care 1st 30-74 mins Diagnoses Acute metabolic encephalopathy G93.41 Acute on chronic diastolic CHF (congestive heart failure) I50.33 Acute respiratory failure with hypoxia J96.01 Pneumonia due to COVID-19 virus U07.1; J12.89 GUS on CPAP G47.33; Z99.89 Palliative care encounter Z51.5 Hypotension (arterial) I95.9 Time Spent (min) 41
[2020-10-03] MEDS: ENOXAPARIN 100 MG/1ML SYR SQ SCH ×2 (11:46→23:37)
[2020-10-03] MEDS: CEFEPIME 2,000 MG in SYRINGE 0 ML IV SCH ×2 (11:47→23:37)
[2020-10-03] MEDS ORDERED: CASPOFUNGIN 70 MG in SODIUM CHLORIDE 0.9% 250 ML IV ONE (12:00)
[2020-10-03] MEDS ORDERED: IOVERSOL 100ml IV ONE (18:09)
--- NOTE | 2020-10-03 18:27 | CT Scan Report ---
CHEST CT WITH CONTRAST CT DOSE: 1111.32 mGy.cm HISTORY: Acute shortness of breath. COVID Positive. Acute respiratory failure on vent, COVID 19 + TECHNIQUE: Multiaxial CT images of the chest were performed following the IV administration of 91 cc of Optiray 320. A dose lowering technique was utilized adhering to the principles of ALARA. COMPARISON: Chest radiograph of same day, CTA chest 09/21/2020 FINDINGS: Moderate cardiomegaly with mild coronary artery and moderate aortic annular calcifications. No thoracic aortic aneurysm or dissection. Respiratory motion artifact and upper extremity positioni ng limits the study. The opacified pulmonary artery appears unremarkable. Enlarged paratracheal and s ubcarinal lymph nodes measure up to 13 mm. Trace pleural effusions. No pneumothorax. Multifocal multilobar distribution of patchy groundglass an d consolidative opacities. These do not of groundglass densities on today's study from comparison, ri ght greater than left. Tracheobronchial secretions. Endotracheal tube terminates approximately 2 cm s uperior to the jake. Enteric tube courses into the stomach with distal tip outside the [id number] w. No acute process of the imaged upper abdomen. Spleen appears enlarged. Degenerative changes of the sp ine. IMPRESSION: 1. Interval coalescing of the previously noted groundglass densities into airspace consolidation with multilobar multifocal distribution of bilateral groundglass and alveolar opacities compatible with o ngoing pneumonia. 2. Satisfactory positioning of the endotracheal and enteric tubes. 3. Cardiomegaly. 4. Mediastinal adenopathy, likely reactive. ACT 112: Negative or not required by law. Electronically signed by: Casimiro Marcano M.D. 10/03/2020 6:26 PM
[2020-10-03] MEDS ORDERED: clonazePAM 0.25 MG TAB PO SCH (21:00)
[2020-10-03] MEDS: PEPTAMEN INTENSE VHP 1.0 CAL 1,000 ML BAG OG SCH (21:11)
[2020-10-04] MEDS: DEXMEDETOMIDINE HCL 200 MCG in SODIUM CHLORIDE 0.9% 48 ML IV SCH ×5 (03:44→13:35)
[2020-10-04] MEDS: PHENYLEPHRINE HCL 40 MG in DEXTROSE 5% 500 ML IV SCH (03:45)
[2020-10-04] MEDS: guaiFENesin SUGAR FREE 100 MG/5 ML UDC PO SCH ×3 (03:50→20:16)
[2020-10-04] MEDS: ACETAMINOPHEN SUSP 325 MG/10.15 ML UDC PO PRN ×2 (03:50→12:15)
[2020-10-04] MEDS: TUBE FEEDING WATER FLUSH GT SCH ×4 (03:57→22:30)
[2020-10-04 04:38] LABS: iSTAT Allen Test Pass; iSTAT Art Bld Gas pCO2 Correct 47 mmHg (35-46); iSTAT Art Bld Gas pH Corrected 7.308 (7.35-7.45); iSTAT Arterial Blood Gas HCO3 23 meg/L (19-24); iSTAT Arterial Blood Gas pCO2 45 mmHg (35-46); iSTAT Arterial Blood Gas pH 7.32 (7.35-7.45); iSTAT Arterial Blood Gas pO2 71 mmHg (80-95); iSTAT Arterial Blood Gas pO2 C 76; iSTAT Carbon Dioxide 24 mmol/L (24-31); iSTAT FiO2 60 %; iSTAT Hematocrit 34 % (42-52); iSTAT Hemoglobin 11.6 g/dl (14.0-18.0); iSTAT Potassium 4.4 mmol/L (3.3-5.0); iSTAT Site Art Line; iSTAT Sodium 144 mmol/L (135-144)
[2020-10-04] MEDS: LEVOTHYROXINE SODIUM 25 MCG TABLET PO SCH (06:14)
[2020-10-04] MEDS: propofoL 1,000 MG/100 ML VIAL IV SCH ×4 (06:14→13:32)
[2020-10-04 06:39] LABS: Basophils # (auto) 0.04 K/uL (0-0.2); Basophils % (auto) 0.2 %; Eosinophils # (auto) 0.26 K/uL (0-0.5); Eosinophils % (auto) 1.6 %; Hematocrit (blood only) 38.1 % (42-52); Hemoglobin 11.8 g/dL (14.0-18.0); Immature Granulocytes # (auto) 0.29 K/uL (0.00-0.02); Immature Granulocytes % (auto) 1.8 %; Lymphocytes # (auto) 1.83 K/uL (1.2-3.4); Lymphocytes % (auto) 11.4 %; Mean Corpuscular Hemoglobin 28.4 pg (25-34); Mean Corpuscular Volume 91.6 fL (80-100); Mean Platelet Volume 12.1 fL (7.4-10.4); Monocytes # (auto) 1.11 K/uL (0.11-0.59); Monocytes % (auto) 6.9 %; Neutrophils # (auto) 12.58 K/uL (1.4-6.5); Neutrophils % (auto) 78.1 %; Platelet Count 173 K/uL (130-400); RDW Coefficient of Variation 15.1 % (11.5-14.5); RDW Standard Deviation 50.9 fL (36.4-46.3); Red Blood Count 4.16 M/uL (4.7-6.1); White Blood Count 16.11 K/uL (4.8-10.8)
[2020-10-04 07:12] LABS: BUN Creatinine Ratio 60.2 (10-20); Calcium 9.2 mg/dl (8.5-10.1); Creatinine Clr Calc Pharmacy 73.4 ml/min; Est GFR (African American) 81.4; Est GFR (Non-African American) 70.3; Magnesium 2.3 mg/dl (1.8-2.4); Potassium 4.6 mmol/L (3.5-5.1)
[2020-10-04 07:13] LABS: Phosphorus 3.1 mg/dl (2.5-4.9)
[2020-10-04] MEDS: ALBUT/IPRATROP 3MG/0.5MG NEB 3 ML VIAL NEB SCH ×3 (08:37→23:05)
[2020-10-04] MEDS: THIAMINE HCL 100 MG TAB NG SCH (08:51)
[2020-10-04] MEDS: METOPROLOL TARTRATE 25 MG TAB PO SCH ×2 (08:52→20:17)
[2020-10-04] MEDS: MULTI VIT W/MINERALS LIQUID 15 ML UDP PO SCH (08:52)
[2020-10-04] MEDS: FAMOTIDINE 20 MG TAB PO SCH ×2 (08:52→20:17)
[2020-10-04] MEDS: allopurinoL 100 MG TAB PO SCH (08:52)
[2020-10-04] MEDS: PREGABALIN 100 MG CAP PO SCH ×3 (08:55→20:16)
--- NOTE | 2020-10-04 09:02 | Critical Care Progress Note ---
Date of Service October 04, 2020 Assessment & Plan (1) Acute metabolic encephalopathy: Reason Critically Ill: 69-year-old male with acute hypoxic respiratory failure due to Covid 19 pneumonia, confusion and delirium. Needed to be intubated for agitation, encephalopathy and hypoxia on 09/25/2020 Neuro - Patient currently on Precedex and fentanyl. We are weaning the fentanyl as able. He likely had delirium from hypoxia and metabolic encephalopathy. Continue delirium precautions. Will need to consider MRI brain imaging if no significant improvement in mental status. Continue Lyrica 100 mg 3 times daily. Cardiac -He did have a history of recent atrial flutter. He is currently on therapeutic anticoagulation with Lovenox 100 mg twice daily and metoprolol 25 mg 3 times a day. Maintain mean arterial pressures of 65. Phenylephrine ordered. Respiratory - Vent dependent respiratory failure --> acute hypoxic respiratory failure. Intubation day #9. He has completed 10 days worth of Decadron. Family is wishing to pursue tracheostomy. We will likely perform this next week if unable to wean from the vent. I think he is too unstable for tracheostomy at this time. CT chest reviewed which demonstrates dense bilateral consolidation with likely superimposed bacterial pneumonia. Continue vancomycin, cefepime. MRSA is growing from the sputum. GI - Continue tube feeds and bowel regimen while on fentanyl. RENAL/LYTES -BUN and potassium are improved today. No significant issues. ENDO - No history of diabetes, ICU hyperglycemic protocol Hypothyroidcontinue Synthroid when able HEME - History of anemia, H&H currently stable at this time and no indication for transfusion. Monitor CBCs ID - Appreciate ID input. We will hold off on bronchoscopy at this time. Continue treatment for MRSA pneumonia. Antibiotics expanded with cefepime yesterday. Caspofungin was added as well. Still spiking fevers. Repeat blood cultures pending. Urine cultures pending as well. --Prophylaxis VTE: Lovenox 100mg BID GI: Pepcid Lines: Right IJ 09/25, right radial 09/25, positive Rodriguez, intubated 09/25 Diet: Tube feeding Overall prognosis is extremely poor. Appreciate palliative care input. Likely will need tracheostomy in the very near future. I have personally spent additional 40 minutes of critical care time in the direct management of this patient. This is a life/limb threatening event. This includes time spent evaluating patient, direct bedside care, chart review, placing orders, interpretation of diagnostic studies, discussion with consultants, patient, and family members, as well as other required patient management activities. This time is exclusive of all separately billable procedures, and teaching time and separate from and in addition to any other critical care service time. Please note the above document was generated using voice recognition software. It may contain grammatical, syntax or spelling errors. (2) Acute on chronic diastolic CHF (congestive heart failure): (3) Acute respiratory failure with hypoxia: (4) Pneumonia due to COVID-19 virus: (5) GUS on CPAP: (6) Palliative care encounter: (7) Hypotension (arterial): Admission and Anticipated Discharge Date Admission Date: September 22, 2020 Subjective Patient quite delirious this morning. He is flailing his arms about. Not following commands. Currently on 0.4 Precedex and 100 mcg of fentanyl an hour. He was on low-dose phenylephrine overnight. His mean arterial pressure is in the 90s. Phenylephrine stopped currently. Thick secretions coming out from the ET tube. Patient underwent a CT chest yesterday which demonstrated dense consolidation bilaterally. Review of Systems Review of Systems: Unobtainable due to endotracheal tube and Unobtainable due to reduced consciousness Physical Exam Constitutional: + frail appearing and + mechanically ventilated Eyes: PERRL, conjunctivae normal, anicteric sclerae ENMT: external ear and nose normal, oropharynx normal Neck: normal visual inspection Respiratory: Coarse breath sounds on the ventilator. Cardiovascular: RRR, no murmur, no edema Gastrointestinal (Abdomen): normal bowel sounds, soft, nontender, no hepatosplenomegaly Musculoskeletal: no cyanosis or clubbing, extremities motor strength 5/5 Skin: no rashes, warm and dry Neurologic: Unable to assess due to intubation status. Psychiatric: Unable to assess due to intubation status. Results & Data Results & Data ([facility]) Vital Signs (Past 12 Hours) Vital Signs Temp Pulse Resp BP Pulse Ox 10/04/20 08:35 80 20 91 10/04/20 06:00 100.4 F H 71 24 118/55 L 93 10/04/20 05:01 100.4 F H 73 24 93 10/04/20 05:00 100.4 F H 74 26 H 141/64 H 93 10/04/20 04:21 70 28 H 92 10/04/20 04:00 76 121/62 10/04/20 03:29 91 H 163/72 H 92 10/04/20 03:00 67 134/61 92 10/04/20 02:00 74 139/58 L 95 10/04/20 01:00 72 144/60 H 94 10/04/20 00:01 79 139/59 L 94 10/04/20 00:00 73 94 10/03/20 23:12 81 25 H 93 10/03/20 23:11 74 114/61 93 10/03/20 23:00 72 120/57 L 92 10/03/20 22:00 94 10/03/20 21:45 69 129/57 L 97 10/03/20 21:30 79 135/56 L 94 10/03/20 21:15 79 24 130/55 L 94 10/03/20 21:00 60 24 117/55 L 94 I reviewed vital signs, labs and imaging Coding Level of Care Code Critical Care 1st 30-74 mins Diagnoses Acute metabolic encephalopathy G93.41 Acute on chronic diastolic CHF (congestive heart failure) I50.33 Acute respiratory failure with hypoxia J96.01 Pneumonia due to COVID-19 virus U07.1; J12.89 GUS on CPAP G47.33; Z99.89 Palliative care encounter Z51.5 Hypotension (arterial) I95.9 Time Spent (min) 40
--- NOTE | 2020-10-04 09:30 | XRay Report ---
XR chest 1V portable HISTORY: 69 years-old Male f/u acute respiratory failure COMPARISON: Chest CT 10/03/2020, chest radiograph 10/02/2020 TECHNIQUE: Portable AP view of the chest FINDINGS: Cardiac silhouette is enlarged. Endotracheal tube overlies the midline, 5.3 cm superior to the jake . Right IJ central venous catheter distal tip terminating in the expected location of the mid SVC. En teric tube courses below the diaphragm with distal tip in the region of the mid gastric body. No pneu mothorax. Trace pleural effusions. Pulmonary vascular congestion with unchanged patchy bilateral airs pace opacities. Degenerative changes of the shoulders and spine. IMPRESSION: 1. Lines and tubes as above. 2. Pulmonary vascular congestion with unchanged patchy bilateral airspace opacities. ACT 112: Negative or not required by law. The above report was generated using voice recognition software. It may contain grammatical, syntax o r spelling errors. Electronically signed by: Casimior Marcano M.D. 10/04/2020 9:28 AM
[2020-10-04] MEDS: ENOXAPARIN 100 MG/1ML SYR SQ SCH (12:10)
[2020-10-04] MEDS: DEXMEDETOMIDINE HCL 400 MCG in 0.9 % SODIUM CHLORIDE 96 ML IV SCH ×2 (12:11→17:46)
[2020-10-04] MEDS: CEFEPIME 2,000 MG in SYRINGE 0 ML IV SCH ×2 (12:14→20:16)
[2020-10-04] MEDS: CASPOFUNGIN 50 MG in SODIUM CHLORIDE 0.9% 250 ML IV SCH (12:14)
[2020-10-04] MEDS ORDERED: VANCOMYCIN HCL 1,250 MG in SODIUM CHLORIDE 0.9% 250 ML IV ONE (12:30)
--- NOTE | 2020-10-04 12:41 | Pharmacy Report ---
Pharmacy Abx Dose Short Note - Date of Service October 04, 2020 - Assessment & Plan Assessment * 69 year old M receiving VANCOMYCIN, CEFEPIME, and CASPOFUNGIN for treatment of COVID19 viral pna with superimposed bacterial pna * Pharmacy is consulted to dose VANCOMYCIN * Today is Day 5 Vancomycin therapy . ID consult has recommended 10-14 days of therapy. * Sputum cxs from 09/25 + 09/30 growing MRSA (sens vancomycin however CASEY = 2), the cx from 09/25 had also grown Grp C strep however this was not cultured out on 09/30 * I have contacted Micro to determine if vanco CASEY can be determined via turbidity method as CASEY 2 can be falsely elevated on Microscan report - these results may be available 10/05/20 * Fever continues, leukocytosis appears to have worsened, latest CT read as "Interval coalescing of the previously noted groundglass densities into airspace consolidation with multilobar multifocal distribution of bilateral groundglass and alveolar opacities compatible with ongoing pneumonia" * Recommend consideration of Ceftaroline as a replacement for Vancomycin in the treatment of MRSA pneumonia as it can more reliably and more quickly achieve therapeutic levels. Given the current clinical response, the reported vancomycin CASEY of 2 (which can lead to therapeutic failures w/ vanco), as well as the difficulty we have had dosing vancomycin in the setting of changing renal fxn - Ceftaroline seems like a reasonable alternative. * SCr has trended down the last 3 days (1.51 -->1.4-->1.34-->1.06), UOP remains >0.5mL/kg/hr, pressors are now off Plan Vancomycin * Random vancomycin level drawn today ~ 36 hrs after last 15mg/kg (1250mg) dose = 12.7mcg/mL (subtherapeutic) * Renal fxn may be improving, thus will likely need redosed Q 24 hrs or slightly longer * Will give 1250mg IV x 1 now and repeat random level in 24 hrs. * Goal trough for pulm infxn: 15-20mcg/mL (AUC dosing not permissible w/ changing renal fxn) Pharmacy will continue to follow and will adjust dose/frequency as necessary. Thank you.
[2020-10-04] MEDS: DOCUSATE SODIUM SYRUP 100 MG/10 ML UDC PO SCH (13:24)
[2020-10-04] MEDS: SENNOSIDES 8.8 MG/5 ML UDC PO SCH (13:24)
[2020-10-04] MEDS: POLYETHYLENE (MIRALAX) 17 GM PACK PO SCH (13:24)
--- NOTE | 2020-10-04 16:06 | Hospitalist Progress Note ---
Date of Service October 04, 2020 Assessment & Plan (1) Pneumonia due to COVID-19 virus: -Dexamethasone 6mg IV daily, initiated on 09/22/2020 no Remdesivir or plasma as he presented 9 days into illness -Albuterol HFA PRN with acute hypoxic respiratory failure treated with BIPAP, tolerated well initially 09/25: intubated and ventilated ID consult 10/02/30 Recommendations: - Recommend stopping Ceftriaxone IV. - Recommend continuing Vancomycin IV for 10 - 14 days. Bacterial superinfection after COVID infection has been well documented and I think it is appropriate to actively treat given patient severity. - Persistent fevers are of concern, Would consider CT chest with/without contra st and would highly recommend bronchoscopy with samples for AFB, fungus, and bacteria to help r/o any additional microbial causes. Now on Caspofungin, Cefepime and Vancomycin (2) Acute respiratory failure with hypoxia: Secondary to Covid-19 PNA, stable with BIPAP on 09/24 however, he deteriorated, required intubation on 09/[address] Sanchez Vent settings assist control respiratory rate 24 tidal volume 400 PEEP of 5, FiO2 50% (3) Acute metabolic encephalopathy: has a history of delirium when hospitalized he drinks at least 3 beers a day. antibiotics vancomycin and Cefepime plus caspofungin Previously on Propofol and fentanyl lightening sedation scheduled clonazepam Lyrica added as he takes chronically (4) Acute kidney injury: Cr down to 1.36, electrolytes stable making adequate urine, use Lasix PRN for negative fluid balance (5) Acute on chronic diastolic CHF (congestive heart failure): related to aortic stenosis appears euvolemic, use Lasix PRN for negative fluid balance (6) Hyponatremia: was probably related to CHF - corrected after diuresis. follow periodically (7) Vitamin D deficiency: -Continue supplementation (8) Restrictive lung disease: fortunately no hypercapnea on ABG (9) GUS on CPAP: Chronic -again fortunately no hypercapnea (10) Gout: Chronic. Stable. 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 continue metoprolol and follow (13) Hypothyroidism: Chronic. Stable. Last TSH in 10/24 = 3.95 -Continue Synthroid 25mcg po daily (14) Opioid dependence: Patient with chronic pain and neuropathy -Continue Lyrica 100mg po TID giving Morphine/Fentanyl to prevent further withdrawal symptoms (15) Acid reflux: Chronic. Stable -Pepcid 20mg IV BID - may have effect on disease severity in Covid-19 (16) DVT prophylaxis: lovenox, therapeutic dosing (17) Atrial flutter: intermittent, use Amiodarone if needed, metoprolol bid 25 continues (18) MRSA (methicillin resistant staphylococcus aureus) pneumonia: MRSA nasal swab positive vancomycin to Rocephin for antibiotic coverage Admission and Anticipated Discharge Date Admission Date: September 22, 2020 Subjective Pt continues with tempertures not really helped with antibiotic changes, did not really ever clear, does have some gram positive sputum cultures , vent specimen grew mrsa. will probably need to proceed to trache and peg in the future. Review of Systems Review of Systems: Unobtainable due to endotracheal tube Physical Exam Physical Exam: The patient appeared chronically ill Vital signs as documented. Still remains febrile some mild hypotension requiring pressor support Lungs are bilateral coarse breath sounds, decreased at bases Cardiac exam, Rhythm is regular.. No murmurs, rubs or gallops. Abdominal exam reveals hypoactive bowel sounds Extremities are mildly edematous Neurologic exam unable to be assessed due to level of sedation Skin is without bruises or rashes Results & Data Results & Data ([facility]) Vital Signs (Past 12 Hours) Vital Signs Temp Pulse Resp BP Pulse Ox 10/04/20 10:47 73 22 93 10/04/20 09:00 100.8 F H 81 133/61 92 10/04/20 08:35 80 20 91 10/04/20 08:00 100.6 F H 88 162/85 H 91 10/04/20 07:00 100.4 F H 72 149/57 H 95 10/04/20 06:00 100.4 F H 71 24 118/55 L 93 10/04/20 05:01 100.4 F H 73 24 93 10/04/20 05:00 100.4 F H 74 26 H 141/64 H 93 10/04/20 04:21 70 28 H 92 PG Care Time/CCT Total # of Minutes Spent Total Time Spent with Patient: Total time spent is greater than 50% in coordination of care (as documented) at patient's floor/unit and/or counseling patient: Coding Level of Care Code 98665 Subseq Hosp Care Lvl 2 Diagnoses Pneumonia due to COVID-19 virus U07.1; J12.89 Acute respiratory failure with hypoxia J96.01 Acute metabolic encephalopathy G93.41 Acute kidney injury N17.9 Acute on chronic diastolic CHF (congestive heart failure) I50.33 Hyponatremia E87.1 Vitamin D deficiency E55.9 Restrictive lung disease J98.4 GUS on CPAP G47.33; Z99.89 Gout M10.9 Gout site: unspecified site Gout etiology: unspecified cause Chronicity: unspecified BPH with obstruction/lower urinary tract symptoms N40.1; N13.8 Hypertension I10 Hypertension type: essential hypertension Hypothyroidism E03.9 Hypothyroidism type: unspecified Opioid dependence F11.20 Substance use status: uncomplicated Acid reflux K21.9 Esophagitis presence: esophagitis presence not specified DVT prophylaxis Z29.9 Atrial flutter I48.92 MRSA (methicillin resistant staphylococcus aureus) pneumonia J15.212 (1) Gout Gout site: unspecified site Gout etiology: unspecified cause Chronicity: unspecified Qualified Code(s): M10.9 - Gout, unspecified (2) Hypertension Hypertension type: essential hypertension Qualified Code(s): I10 - Essential (primary) hypertension (3) Hypothyroidism Hypothyroidism type: unspecified Qualified Code(s): E03.9 - Hypothyroidism, unspecified (4) Opioid dependence Substance use status: uncomplicated Qualified Code(s): F11.20 - Opioid dependence, uncomplicated (5) Acid reflux Esophagitis presence: esophagitis presence not specified Qualified Code(s): K21.9 - Gastro-esophageal reflux disease without esophagitis
[2020-10-04] MEDS: PEPTAMEN INTENSE VHP 1.0 CAL 1,000 ML BAG OG SCH (18:42)
[2020-10-05] MEDS: DEXMEDETOMIDINE HCL 400 MCG in 0.9 % SODIUM CHLORIDE 96 ML IV SCH ×8 (00:50→23:05)
[2020-10-05] MEDS: ENOXAPARIN 100 MG/1ML SYR SQ SCH ×2 (00:51→11:51)
[2020-10-05] MEDS: fentaNYL citrate 2,500 MCG/250 ML BAG IV SCH ×3 (00:51→21:18)
[2020-10-05] MEDS: CEFEPIME 2,000 MG in SYRINGE 0 ML IV SCH ×3 (03:57→19:46)
[2020-10-05] MEDS: guaiFENesin SUGAR FREE 100 MG/5 ML UDC PO SCH ×3 (03:57→19:46)
[2020-10-05] MEDS: TUBE FEEDING WATER FLUSH GT SCH ×4 (03:57→22:18)
[2020-10-05] MEDS: LEVOTHYROXINE SODIUM 25 MCG TABLET PO SCH (03:58)
[2020-10-05 07:20] LABS: Basophils # (auto) 0.02 K/uL (0-0.2); Basophils % (auto) 0.2 %; Eosinophils # (auto) 0.26 K/uL (0-0.5); Eosinophils % (auto) 2.4 %; Hemoglobin 10.5 g/dL (14.0-18.0); Immature Granulocytes # (auto) 0.13 K/uL (0.00-0.02); Immature Granulocytes % (auto) 1.2 %; Lymphocytes % (auto) 12.7 %; Mean Corpuscular Hemoglobin 28.2 pg (25-34); Mean Corpuscular Hgb Conc 30.9 g/dL (32-36); Mean Corpuscular Volume 91.4 fL (80-100); Mean Platelet Volume 12.2 fL (7.4-10.4); Monocytes # (auto) 0.93 K/uL (0.11-0.59); Monocytes % (auto) 8.4 %; Neutrophils # (auto) 8.27 K/uL (1.4-6.5); Neutrophils % (auto) 75.1 %; Platelet Count 157 K/uL (130-400); RDW Coefficient of Variation 15.3 % (11.5-14.5); Red Blood Count 3.72 M/uL (4.7-6.1); White Blood Count 11.01 K/uL (4.8-10.8)
[2020-10-05] MEDS: MULTI VIT W/MINERALS LIQUID 15 ML UDP PO SCH (07:47)
[2020-10-05 07:48] LABS: Calcium 9.2 mg/dl (8.5-10.1); Creatinine Clr Calc Pharmacy 80.2 ml/min; Est GFR (African American) 85.3; Est GFR (Non-African American) 73.6; Magnesium 2.4 mg/dl (1.8-2.4); Phosphorus 3.1 mg/dl (2.5-4.9); Potassium 4.6 mmol/L (3.5-5.1)
[2020-10-05] MEDS: METOPROLOL TARTRATE 25 MG TAB PO SCH ×2 (07:48→19:48)
[2020-10-05] MEDS: POLYETHYLENE (MIRALAX) 17 GM PACK PO SCH (07:48)
[2020-10-05] MEDS: DOCUSATE SODIUM SYRUP 100 MG/10 ML UDC PO SCH (07:48)
[2020-10-05] MEDS: SENNOSIDES 8.8 MG/5 ML UDC PO SCH (07:49)
[2020-10-05] MEDS: THIAMINE HCL 100 MG TAB NG SCH (07:49)
[2020-10-05] MEDS: FAMOTIDINE 20 MG TAB PO SCH ×2 (07:49→19:48)
[2020-10-05] MEDS: allopurinoL 100 MG TAB PO SCH (07:50)
[2020-10-05] MEDS: ACETAMINOPHEN SUSP 325 MG/10.15 ML UDC PO PRN (07:53)
[2020-10-05] MEDS: PREGABALIN 100 MG CAP PO SCH ×3 (07:53→19:48)
--- NOTE | 2020-10-05 08:01 | Hospitalist Progress Note ---
Date of Service October 05, 2020 Assessment & Plan (1) Pneumonia due to COVID-19 virus: -Dexamethasone 6mg IV daily, initiated on 09/22/2020 no Remdesivir or plasma as he presented 9 days into illness -Albuterol HFA PRN with acute hypoxic respiratory failure treated with BIPAP, tolerated well initially 09/25: intubated and ventilated ID consult 10/02/30 Recommendations: - Recommend stopping Ceftriaxone IV. - Recommend continuing Vancomycin IV for 10 - 14 days. Bacterial superinfection after COVID infection has been well documented and I think it is appropriate to actively treat given patient severity. - Persistent fevers are of concern, Would consider CT chest with/without contrast and would highly recommend bronchoscopy with samples for AFB, fungus, and bacteria to help r/o any additional microbial causes. Now on Caspofungin, Cefepime and Vancomycin (2) Acute respiratory failure with hypoxia: Secondary to Covid-19 PNA, stable with BIPAP on 09/24 however, he deteriorated, required intubation on 09/[address] Sanchez Vent settings assist control respiratory rate 24 tidal volume 400 PEEP of 5, FiO2 50% (3) Acute metabolic encephalopathy: has a history of delirium when hospitalized he drinks at least 3 beers a day. antibiotics vancomycin and Cefepime plus caspofungin Previously on Propofol and fentanyl lightening sedation scheduled clonazepam Lyrica added as he takes chronically (4) Acute kidney injury: Cr down to 1.36, electrolytes stable making adequate urine, use Lasix PRN for negative fluid balance (5) Acute on chronic diastolic CHF (congestive heart failure): related to aortic stenosis appears euvolemic, use Lasix PRN for negative fluid balance (6) Hyponatremia: was probably related to CHF - corrected after diuresis. follow periodically (7) Vitamin D deficiency: -Continue supplementation (8) Restrictive lung disease: fortunately no hypercapnea on ABG (9) GUS on CPAP: Chronic -again fortunately no hypercapnea (10) Gout: Chronic. Stable. 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 continue metoprolol and follow (13) Hypothyroidism: Chronic. Stable. Last TSH in 10/24 = 3.95 -Continue Synthroid 25mcg po daily (14) Opioid dependence: Patient with chronic pain and neuropathy -Continue Lyrica 100mg po TID giving Morphine/Fentanyl to prevent further withdrawal symptoms (15) Acid reflux: Chronic. Stable -Pepcid 20mg IV BID - may have effect on disease severity in Covid-19 (16) DVT prophylaxis: lovenox, therapeutic dosing (17) Atrial flutter: intermittent, use Amiodarone if needed, metoprolol bid 25 continues (18) MRSA (methicillin resistant staphylococcus aureus) pneumonia: MRSA nasal swab positive vancomycin to Rocephin for antibiotic coverage Admission and Anticipated Discharge Date Admission Date: September 22, 2020 Subjective Pt continues with tempertures not really helped with antibiotic changes, did not really ever clear, does have some gram positive sputum cultures , vent specimen grew mrsa. will probably need to proceed to trache and peg in the future. Review of Systems Review of Systems: Unobtainable due to endotracheal tube Physical Exam Physical Exam: The patient appeared chronically ill Vital signs as documented. Still remains febrile some mild hypotension requiring pressor support Lungs are bilateral coarse breath sounds, decreased at bases Cardiac exam, Rhythm is regular.. No murmurs, rubs or gallops. Abdominal exam reveals hypoactive bowel sounds Extremities are mildly edematous Neurologic exam unable to be assessed due to level of sedation Skin is without bruises or rashes Results & Data Results & Data ([facility]) Vital Signs (Past 12 Hours) Vital Signs Temp Pulse Resp BP Pulse Ox 10/05/20 02:58 75 27 H 94 10/04/20 23:05 88 28 H 93 10/04/20 23:00 100.4 F H 69 129/54 L 94 10/04/20 22:00 100.0 F H 108 H 138/59 L 94 10/04/20 21:01 99.5 F 71 132/56 L 95 10/04/20 21:00 99.5 F 66 95 PG Care Time/CCT Total # of Minutes Spent Total Time Spent with Patient: Total time spent is greater than 50% in coordinat ion of care (as documented) at patient's floor/unit and/or counseling patient: Coding Level of Care Code 59645 Subseq Hosp Care Lvl 3 Diagnoses Pneumonia due to COVID-19 virus U07.1; J12.89 Acute respiratory failure with hypoxia J96.01 Acute metabolic encephalopathy G93.41 Acute kidney injury N17.9 Acute on chronic diastolic CHF (congestive heart failure) I50.33 Hyponatremia E87.1 Vitamin D deficiency E55.9 Restrictive lung disease J98.4 GUS on CPAP G47.33; Z99.89 Gout M10.9 Chronicity: unspecified Gout etiology: unspecified cause Gout site: unspecified site BPH with obstruction/lower urinary tract symptoms N40.1; N13.8 Hypertension I10 Hypertension type: essential hypertension Hypothyroidism E03.9 Hypothyroidism type: unspecified Opioid dependence F11.20 Substance use status: uncomplicated Acid reflux K21.9 Esophagitis presence: esophagitis presence not specified DVT prophylaxis Z29.9 Atrial flutter I48.92 MRSA (methicillin resistant staphylococcus aureus) pneumonia J15.212 (1) Opioid dependence Substance use status: uncomplicated Qualified Code(s): F11.20 - Opioid dependence, uncomplicated (2) Gout Chronicity: unspecified Gout etiology: unspecified cause Gout site: unspecified site Qualified Code(s): M10.9 - Gout, unspecified (3) Hypothyroidism Hypothyroidism type: unspecified Qualified Code(s): E03.9 - Hypothyroidism, unspecified (4) Acid reflux Esophagitis presence: esophagitis presence not specified Qualified Code(s): K21.9 - Gastro-esophageal reflux disease without esophagitis (5) Hypertension Hypertension type: essential hypertension Qualified Code(s): I10 - Essential (primary) hypertension
[2020-10-05] MEDS: ALBUT/IPRATROP 3MG/0.5MG NEB 3 ML VIAL NEB SCH ×3 (08:03→23:27)
--- NOTE | 2020-10-05 11:46 | Critical Care Progress Note ---
Date of Service October 05, 2020 Assessment & Plan (1) Acute metabolic encephalopathy: Reason Critically Ill: 69-year-old male with acute hypoxic respiratory failure due to Covid 19 pneumonia, confusion and delirium. Needed to be intubated for agitation, encephalopathy and hypoxia on 09/25/2020 Neuro - Patient currently on Precedex and fentanyl. We are weaning the fentanyl as able. He likely had delirium from hypoxia and metabolic encephalopathy. Continue delirium precautions. Will need to consider MRI brain imaging if no significant improvement in mental status. Continue Lyrica 100 mg 3 times daily. Cardiac -He did have a history of recent atrial flutter. He is currently on therapeutic anticoagulation with Lovenox 100 mg twice daily and metoprolol 25 mg 3 times a day. Maintain mean arterial pressures of 65. Respiratory - Vent dependent respiratory failure --> acute hypoxic respiratory failure. Intubation day #10. He has completed 10 days worth of Decadron. Family is wishing to pursue tracheostomy. We will likely perform this next week if unable to wean from the vent. I think he is too unstable for tracheostomy at this time. CT chest reviewed which demonstrates dense bilateral consolidation with likely superimposed bacterial pneumonia. Continue vancomycin, cefepime. MRSA is growing from the sputum. GI - Continue tube feeds and bowel regimen while on fentanyl. RENAL/LYTES -BUN and potassium are improved today. No significant issues. ENDO - No history of diabetes, ICU hyperglycemic protocol Hypothyroidcontinue Synthroid when able HEME - History of anemia, H&H currently stable at this time and no indication for transfusion. Monitor CBCs ID - Appreciate ID input. We will hold off on bronchoscopy at this time. Continue treatment for MRSA pneumonia. Continue cefepime and vancomycin. Caspofungin was added as well. Still spiking fevers. Repeat blood and urine cultures negative to date. --Prophylaxis VTE: Lovenox 100mg BID GI: Pepcid Lines: Right IJ 09/25, right radial 09/25, positive Rodriguez, intubated 09/25 Diet: Tube feeding Overall prognosis is extremely poor. Appreciate palliative care input. Likely will need tracheostomy in the very near future. I have personally spent additional 34 minutes of critical care time in the direct management of this patient. This is a life/limb threatening event. This includes time spent evaluating patient, direct bedside care, chart review, placing orders, interpretation of diagnostic studies, discussion with consultants, patient, and family members, as well as other required patient management activities. This time is exclusive of all separately billable procedures, and teaching time and separate from and in addition to any other critical care service time. Please note the above document was generated using voice recognition software. It may contain grammatical, syntax or spelling errors. (2) Acute on chronic diastolic CHF (congestive heart failure): (3) Acute respiratory failure with hypoxia: (4) Pneumonia due to COVID-19 virus: (5) GUS on CPAP: (6) Palliative care encounter: (7) Hypotension (arterial): Admission and Anticipated Discharge Date Admission Date: September 22, 2020 Subjective Patient continues to be profoundly delirious. He is currently on pressure support trials, but he is having tachycardia to the 130s and 140s at times. I did switch him over to assist control. His saturations were 92% on 40% FiO2. He is currently on Precedex and fentanyl. We are weaning these down. Review of Systems Review of Systems: Unobtainable due to cognitive status and Unobtainable due to endotracheal tube Physical Exam Constitutional: + frail appearing and + mechanically ventilated Eyes: PERRL, conjunctivae normal, anicteric sclerae ENMT: external ear and nose normal, oropharynx normal Neck: normal visual inspection Respiratory: Coarse breath sounds on the ventilator. Cardiovascular: RRR, no murmur, no edema Gastrointestinal (Abdomen): normal bowel sounds, soft, nontender, no hepatosplenomegaly Musculoskeletal: no cyanosis or clubbing, extremities motor strength 5/5 Skin: no rashes, warm and dry Neurologic: Unable to assess due to intubation status. Psychiatric: Unable to assess due to intubation status. Results & Data Results & Data ([facility]) Vital Signs (Past 12 Hours) Vital Signs Temp Pulse Resp BP Pulse Ox 10/05/20 08:03 83 13 90 10/05/20 08:00 100.8 F H 75 109/47 L 90 10/05/20 07:30 100.8 F H 71 91 10/05/20 07:00 100.8 F H 73 130/60 92 10/05/20 02:58 75 27 H 94 I reviewed vital signs, labs and imaging Coding Level of Care Code Critical Care 1st 30-74 mins Diagnoses Acute metabolic encephalopathy G93.41 Acute on chronic diastolic CHF (congestive heart failure) I50.33 Acute respiratory failure with hypoxia J96.01 Pneumonia due to COVID-19 virus U07.1; J12.89 GUS on CPAP G47.33; Z99.89 Palliative care encounter Z51.5 Hypotension (arterial) I95.9 Time Spent (min) 34
[2020-10-05] MEDS: CASPOFUNGIN 50 MG in SODIUM CHLORIDE 0.9% 250 ML IV SCH (11:51)
[2020-10-05] MEDS ORDERED: VANCOMYCIN HCL 1,250 MG in SODIUM CHLORIDE 0.9% 250 ML IV STA (13:04)
--- NOTE | 2020-10-05 13:12 | Pharmacy Report ---
Pharmacy Abx Dose Short Note - Date of Service October 05, 2020 - Assessment & Plan Assessment * 69 year old M receiving VANCOMYCIN, CEFEPIME, and CASPOFUNGIN for treatment of COVID19 viral pna with superimposed bacterial pna * Pharmacy is consulted to dose VANCOMYCIN * Today is Day 6 Vancomycin therapy . ID consult has recommended 10-14 days of therapy. * Sputum cxs from 09/25 + 09/30 growing MRSA (sens vancomycin however CASEY = 2), the cx from 09/25 had also grown Grp C strep however this was not cultured out on 09/30 * Fever continues, leukocytosis has improved today, latest CT read as "Interval coalescing of the previously noted groundglass densities into airspace consolidation with multilobar multifocal distribution of bilateral groundglass and alveolar opacities compatible with ongoing pneumonia" * Recommend consideration of Ceftaroline as a replacement for Vancomycin in the treatment of MRSA pneumonia as it can more reliably and more quickly achieve therapeutic levels. * SCr continues to improve (1.34-->1.06-->1.02), UOP remains >0.5mL/kg/hr Plan Vancomycin * Trough level of 15.1 mcg/mL is therapeutic * Continue dose of 1250 mg IV but will schedule it every 24 hours * Goal trough level for MRSA pulm infxn: 15 to 20 mcg/mL * Trough level ordered for morning of 10/07 given continued changing in renal fxn. Pharmacy will continue to follow and will adjust dose/frequency as necessary. Thank you.
[2020-10-05] MEDS: PEPTAMEN INTENSE VHP 1.0 CAL 1,000 ML BAG OG SCH (16:18)
[2020-10-06] MEDS: ENOXAPARIN 100 MG/1ML SYR SQ SCH ×3 (00:24→23:25)
[2020-10-06] MEDS: DEXMEDETOMIDINE HCL 400 MCG in 0.9 % SODIUM CHLORIDE 96 ML IV SCH ×10 (01:54→22:04)
[2020-10-06 03:05] LABS: iSTAT Allen Test Pass; iSTAT Art Bld Gas pCO2 Correct 41 mmHg (35-46); iSTAT Art Bld Gas pH Corrected 7.292 (7.35-7.45); iSTAT Arterial Blood Gas HCO3 20 meg/L (19-24); iSTAT Arterial Blood Gas pCO2 41 mmHg (35-46); iSTAT Arterial Blood Gas pH 7.29 (7.35-7.45); iSTAT Arterial Blood Gas pO2 81 mmHg (80-95); iSTAT Arterial Blood Gas pO2 C 81; iSTAT Carbon Dioxide 21 mmol/L (24-31); iSTAT Hematocrit 46 % (42-52); iSTAT Hemoglobin 15.6 g/dl (14.0-18.0); iSTAT Potassium 4.4 mmol/L (3.3-5.0); iSTAT Site R Radial; iSTAT Sodium 139 mmol/L (135-144)
[2020-10-06] MEDS: CEFEPIME 2,000 MG in SYRINGE 0 ML IV SCH ×3 (03:32→19:39)
[2020-10-06] MEDS: guaiFENesin SUGAR FREE 100 MG/5 ML UDC PO SCH (03:32)
[2020-10-06] MEDS: LEVOTHYROXINE SODIUM 25 MCG TABLET PO SCH (03:33)
[2020-10-06] MEDS: TUBE FEEDING WATER FLUSH GT SCH ×4 (04:06→22:32)
[2020-10-06 07:22] LABS: Basophils # (auto) 0.02 K/uL (0-0.2); Basophils % (auto) 0.2 %; Eosinophils # (auto) 0.22 K/uL (0-0.5); Eosinophils % (auto) 2.3 %; Hematocrit (blood only) 32.1 % (42-52); Hemoglobin 9.9 g/dL (14.0-18.0); Immature Granulocytes # (auto) 0.13 K/uL (0.00-0.02); Immature Granulocytes % (auto) 1.3 %; Lymphocytes # (auto) 1.36 K/uL (1.2-3.4); Lymphocytes % (auto) 14.1 %; Mean Corpuscular Hgb Conc 30.8 g/dL (32-36); Mean Corpuscular Volume 90.7 fL (80-100); Mean Platelet Volume 11.6 fL (7.4-10.4); Monocytes # (auto) 0.63 K/uL (0.11-0.59); Monocytes % (auto) 6.5 %; Neutrophils # (auto) 7.27 K/uL (1.4-6.5); Neutrophils % (auto) 75.6 %; Platelet Count 148 K/uL (130-400); RDW Standard Deviation 49.2 fL (36.4-46.3); Red Blood Count 3.54 M/uL (4.7-6.1); White Blood Count 9.63 K/uL (4.8-10.8)
[2020-10-06] MEDS: MULTI VIT W/MINERALS LIQUID 15 ML UDP PO SCH (07:29)
[2020-10-06] MEDS: METOPROLOL TARTRATE 25 MG TAB PO SCH ×2 (07:30→19:41)
[2020-10-06] MEDS: DOCUSATE SODIUM SYRUP 100 MG/10 ML UDC PO SCH (07:30)
[2020-10-06] MEDS: POLYETHYLENE (MIRALAX) 17 GM PACK PO SCH (07:30)
[2020-10-06] MEDS: SENNOSIDES 8.8 MG/5 ML UDC PO SCH (07:31)
[2020-10-06] MEDS: FAMOTIDINE 20 MG TAB PO SCH ×2 (07:31→19:42)
[2020-10-06] MEDS: allopurinoL 100 MG TAB PO SCH (07:31)
[2020-10-06] MEDS: THIAMINE HCL 100 MG TAB NG SCH (07:32)
[2020-10-06] MEDS: PREGABALIN 100 MG CAP PO SCH ×2 (07:39→20:35)
[2020-10-06 07:50] LABS: BUN Creatinine Ratio 59.6 (10-20); Calcium 9.3 mg/dl (8.5-10.1); Creatinine Clr Calc Pharmacy 85.2 ml/min; Est GFR (African American) 91.8; Est GFR (Non-African American) 79.2; Magnesium 2.3 mg/dl (1.8-2.4); Potassium 4.5 mmol/L (3.5-5.1)
[2020-10-06] MEDS: ALBUT/IPRATROP 3MG/0.5MG NEB 3 ML VIAL NEB SCH ×2 (07:51→15:41)
[2020-10-06 08:03] LABS: Phosphorus 3.8 mg/dl (2.5-4.9)
[2020-10-06] MEDS: ACETAMINOPHEN SUSP 325 MG/10.15 ML UDC PO PRN ×3 (09:10→21:51)
--- NOTE | 2020-10-06 10:59 | Critical Care Progress Note ---
Date of Service October 06, 2020 Assessment & Plan (1) Acute metabolic encephalopathy: Reason Critically Ill: 69-year-old male with acute hypoxic respiratory failure due to Covid 19 pneumonia, confusion and delirium. Needed to be intubated for agitation, encephalopathy and hypoxia on 09/25/2020 Neuro - Fentanyl has been shut off. We are continuing Precedex drip. He has ongoing delirium. Lyrica has been reduced to 100 mg twice daily. He does have a history of alcohol abuse. Continue thiamine. Cardiac -intermittent atrial flutter. Currently on therapeutic dosing of Lovenox. Continue metoprolol 25 mg twice daily. Respiratory - Currently intubation day #11. He is currently on minimal vent settings with an FiO2 of 35%. He is currently on pressure support trial and tolerating this well. Mental status continues to preclude him from being unable to be extubated. He is being treated for MRSA pneumonia. He is also on cefepime and caspofungin given ongoing fevers. Continue cefepime and caspofungin for total of 7 days. Continue vancomycin for total of 10 days. Notably, procalcitonin has been negative. Recent CT chest reviewed which demonstrated bilateral dense infiltrates. He completed a course of Decadron for Covid pneumonia. If mental status does not improve substantially, will need tracheostomy early next week. GI - Continue tube feeds. Continue bowel regimen. He has not had a bowel movement in 2 days. Stress ulcer prophylaxis with Pepcid 20 mg twice a day. RENAL/LYTES - No significant issues. ENDO - No history of diabetes, ICU hyperglycemic protocol Hypothyroidcontinue Synthroid when able HEME - History of anemia, H&H currently stable at this time and no indication for transfusion. Monitor CBCs ID - Treatment as above. Cultures negative to date. --Prophylaxis VTE: Lovenox 100mg BID GI: Pepcid Lines: Right IJ 09/25, right radial 09/25, positive Rodriguez, intubated 09/25 Diet: Tube feeding Overall prognosis is extremely poor. Appreciate palliative care input. I have personally spent additional 35 minutes of critical care time in the direct management of this patient. This is a life/limb threatening event. This includes time spent evaluating patient, direct bedside care, chart review, placing orders, interpretation of diagnostic studies, discussion with consultants, patient, and family members, as well as other required patient management activities. This time is exclusive of all separately billable procedures, and teaching time and separate from and in addition to any other critical care service time. Please note the above document was generated using voice recognition software. It may contain grammatical, syntax or spelling errors. (2) Acute on chronic diastolic CHF (congestive heart failure): (3) Acute respiratory failure with hypoxia: (4) Pneumonia due to COVID-19 virus: (5) GUS on CPAP: (6) Palliative care encounter: (7) Hypotension (arterial): Admission and Anticipated Discharge Date Admission Date: September 22, 2020 Subjective Patient continues to be very delirious and is currently on Precedex at 1.2 mcg an hour. He lifts his hands up frequently with no obvious purpose. He does not respond to commands. He does withdraw from pain. No significant events overnight. He still has low-grade fever. Review of Systems Review of Systems: Unobtainable due to endotracheal tube and Unobtainable due to reduced consciousness Physical Exam Constitutional: + frail appearing and + mechanically ventilated Eyes: PERRL, conjunctivae normal, anicteric sclerae ENMT: external ear and nose normal, oropharynx normal Neck: normal visual inspection Respiratory: Coarse breath sounds on the ventilator. Cardiovascular: RRR, no murmur, no edema Gastrointestinal (Abdomen): normal bowel sounds, soft, nontender, no hepatosplenomegaly Musculoskeletal: no cyanosis or clubbing, extremities motor strength 5/5 Skin: no rashes, warm and dry Neurologic: Unable to assess due to intubation status. Psychiatric: Unable to assess due to intubation status. Results & Data Results & Data ([facility]) Vital Signs (Past 12 Hours) Vital Signs Temp Pulse Resp BP Pulse Ox 10/06/20 08:15 100.2 F H 73 96 10/06/20 08:00 100.2 F H 80 134/59 L 93 10/06/20 07:51 68 19 94 10/06/20 07:45 100.0 F H 68 95 10/06/20 07:30 100.0 F H 73 95 10/06/20 07:15 99.9 F H 66 94 10/06/20 07:00 99.7 F H 64 116/56 L 95 10/06/20 06:00 99.5 F 80 24 121/53 L 95 10/06/20 05:00 99.3 F 72 24 121/56 L 95 10/06/20 04:00 99.3 F 75 24 108/52 L 95 10/06/20 03:00 76 124/53 L 95 10/06/20 02:19 71 24 96 10/06/20 02:00 82 26 H 113/51 L 96 10/06/20 01:02 92 H 95 10/06/20 01:01 96 H 147/109 H 96 10/06/20 01:00 79 93 10/06/20 00:00 98.1 F 74 126/57 L 94 10/05/20 23:26 55 L 24 95 10/05/20 23:00 98.1 F 55 L 111/53 L 95 I reviewed the vital signs, labs and imaging. Coding Level of Care Code Critical Care 1st 30-74 mins Diagnoses Acute metabolic encephalopathy G93.41 Acute on chronic diastolic CHF (congestive heart failure) I50.33 Acute respiratory failure with hypoxia J96.01 Pneumonia due to COVID-19 virus U07.1; J12.89 GUS on CPAP G47.33; Z99.89 Palliative care encounter Z51.5 Hypotension (arterial) I95.9 Time Spent (min) 35
[2020-10-06] MEDS: VANCOMYCIN HCL 1,250 MG in SODIUM CHLORIDE 0.9% 250 ML IV SCH (11:38)
[2020-10-06] MEDS: CASPOFUNGIN 50 MG in SODIUM CHLORIDE 0.9% 250 ML IV SCH (11:38)
[2020-10-06] MEDS: PEPTAMEN INTENSE VHP 1.0 CAL 1,000 ML BAG OG SCH (14:31)
--- NOTE | 2020-10-06 15:09 | Hospitalist Progress Note ---
Date of Service October 06, 2020 Assessment & Plan (1) Pneumonia due to COVID-19 virus: -Dexamethasone 6mg IV daily, stopped by pulmonary med no Remdesivir or plasma as he presented 9 days into illness -Albuterol HFA PRN with acute hypoxic respiratory failure treated with BIPAP, tolerated well initially 09/25: intubated and ventilated ID consult 10/02/30 Recommendations: - Recommend stopping Ceftriaxone IV. - Recommend continuing Vancomycin IV for 10 - 14 days. Bacterial superinfection after COVID infection has been well documented and I think it is appropriate to actively treat given patient severity. - Persistent fevers are of concern, Would consider CT chest with/without contras t and would highly recommend bronchoscopy with samples for AFB, fungus, and bacteria to help r/o any additional microbial causes. Now on Caspofungin, Cefepime and Vancomycin (2) Acute respiratory failure with hypoxia: Secondary to Covid-19 PNA, stable with BIPAP on 09/24 however, he deteriorated, required intubation on 09/[address] Sanchez Vent settings CPAP PS 7 peep 5 fio2 30% which is improving from earlier in the week (3) Acute metabolic encephalopathy: has a history of delirium when hospitalized he drinks at least 3 beers a day. antibiotics vancomycin and Cefepime plus caspofungin Previously on Propofol and fentanyl lightening sedation scheduled clonazepam Lyrica stopped 10/06/20y (4) Acute kidney injury: Cr down to 1.36, electrolytes stable making adequate urine, use Lasix PRN for negative fluid balance (5) Acute on chronic diastolic CHF (congestive heart failure): related to aortic stenosis appears euvolemic, use Lasix PRN for negative fluid balance (6) Hyponatremia: was probably related to CHF - corrected after diuresis. follow periodically (7) Vitamin D deficiency: -Continue supplementation (8) Restrictive lung disease: fortunately no hypercapnea on ABG (9) GUS on CPAP: Chronic -again fortunately no hypercapnea (10) Gout: Chronic. Stable. 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 continue metoprolol and follow (13) Hypothyroidism: Chronic. Stable. Last TSH in 10/24 = 3.95 -Continue Synthroid 25mcg po daily (14) Opioid dependence: Patient with chronic pain and neuropathy -Continue Lyrica 100mg po TID giving Morphine/Fentanyl to prevent further withdrawal symptoms (15) Acid reflux: Chronic. Stable -Pepcid 20mg IV BID - may have effect on disease severity in Covid-19 (16) DVT prophylaxis: lovenox, therapeutic dosing (17) Atrial flutter: intermittent, use Amiodarone if needed, metoprolol bid 25 continues (18) MRSA (methicillin resistant staphylococcus aureus) pneumonia: MRSA nasal swab positive vancomycin to Rocephin for antibiotic coverage Admission and Anticipated Discharge Date Admission Date: September 22, 2020 Subjective Pt continues with temperatures not really helped with antibiotic changes, antifungal did not really ever clear, does have some gram positive sputum cultures , vent specimen grew mrsa. will probably need to proceed to trache and peg in the future. Physical Exam Physical Exam: The patient appeared chronically ill Vital signs as documented. Still remains febrile some mild hypotension requiring pressor support Lungs are bilateral coarse breath sounds, decreased at bases Cardiac exam, Rhythm is regular.. No murmurs, rubs or gallops. Abdominal exam reveals hypoactive bowel sounds Extremities are mildly edematous Neurologic exam unable to be assessed due to level of sedation Skin is without bruises or rashes Results & Data Results & Data ([facility]) Vital Signs (Past 12 Hours) Vital Signs Temp Pulse Resp BP Pulse Ox 10/06/20 11:25 69 24 92 10/06/20 08:15 100.2 F H 73 96 10/06/20 08:00 100.2 F H 80 134/59 L 93 10/06/20 07:51 68 19 94 10/06/20 07:45 100.0 F H 68 95 10/06/20 07:30 100.0 F H 73 95 10/06/20 07:15 99.9 F H 66 94 10/06/20 07:00 99.7 F H 64 116/56 L 95 10/06/20 06:00 99.5 F 80 24 121/53 L 95 10/06/20 05:00 99.3 F 72 24 121/56 L 95 10/06/20 04:00 99.3 F 75 24 108/52 L 95 PG Care Time/CCT Total # of Minutes Spent Total Time Spent with Patient: Total time spent is greater than 50% in coordination of care (as documented) at patient's floor/unit and/or counseling patient: Coding Level of Care Code 12606 Subseq Hosp Care Lvl 2 Diagnoses Pneumonia due to COVID-19 virus U07.1; J12.89 Acute respiratory failure with hypoxia J96.01 Acute metabolic encephalopathy G93.41 Acute kidney injury N17.9 Acute on chronic diastolic CHF (congestive heart failure) I50.33 Hyponatremia E87.1 Vitamin D deficiency E55.9 Restrictive lung disease J98.4 GUS on CPAP G47.33; Z99.89 Gout M10.9 Gout site: unspecified site Gout etiology: unspecified cause Chronicity: unspecified BPH with obstruction/lower urinary tract symptoms N40.1; N13.8 Hypertension I10 Hypertension type: essential hypertension Hypothyroidism E03.9 Hypothyroidism type: unspecified Opioid dependence F11.20 Substance use status: uncomplicated Acid reflux K21.9 Esophagitis presence: esophagitis presence not specified DVT prophylaxis Z29.9 Atrial flutter I48.92 MRSA (methicillin resistant staphylococcus aureus) pneumonia J15.212 (1) Gout Gout site: unspecified site Gout etiology: unspecified cause Chronicity: unspecified Qualified Code(s): M10.9 - Gout, unspecified (2) Hypertension Hypertension type: essential hypertension Qualified Code(s): I10 - Essential (primary) hypertension (3) Hypothyroidism Hypothyroidism type: unspecified Qualified Code(s): E03.9 - Hypothyroidism, unspecified (4) Opioid dependence Substance use status: uncomplicated Qualified Code(s): F11.20 - Opioid dependence, uncomplicated (5) Acid reflux Esophagitis presence: esophagitis presence not specified Qualified Code(s): K21.9 - Gastro-esophageal reflux disease without esophagitis
[2020-10-06] MEDS ORDERED: fentaNYL citrate 100 MCG/2 ML VIAL IV STA (23:27)
[2020-10-06] MEDS ORDERED: fentaNYL citrate 100 MCG/2 ML VIAL ONE (23:34)
[2020-10-07] MEDS: DEXMEDETOMIDINE HCL 400 MCG in 0.9 % SODIUM CHLORIDE 96 ML IV SCH ×12 (00:29→23:21)
[2020-10-07] MEDS: ALBUT/IPRATROP 3MG/0.5MG NEB 3 ML VIAL NEB SCH ×4 (00:34→23:47)
[2020-10-07 02:49] LABS: iSTAT Allen Test Pass; iSTAT Arterial Blood Gas HCO3 18 meg/L (19-24); iSTAT Arterial Blood Gas pCO2 36 mmHg (35-46); iSTAT Arterial Blood Gas pH 7.31 (7.35-7.45); iSTAT Arterial Blood Gas pO2 81 mmHg (80-95); iSTAT Carbon Dioxide 19 mmol/L (24-31); iSTAT FiO2 35 %; iSTAT Site R Radial
[2020-10-07] MEDS: CEFEPIME 2,000 MG in SYRINGE 0 ML IV SCH ×3 (03:10→20:25)
[2020-10-07] MEDS: LEVOTHYROXINE SODIUM 25 MCG TABLET PO SCH (05:38)
[2020-10-07] MEDS: TUBE FEEDING WATER FLUSH GT SCH ×3 (05:41→16:33)
[2020-10-07 07:09] LABS: Basophils # (auto) 0.04 K/uL (0-0.2); Basophils % (auto) 0.4 %; Eosinophils # (auto) 0.17 K/uL (0-0.5); Eosinophils % (auto) 1.6 %; Hematocrit (blood only) 31.4 % (42-52); Hemoglobin 9.8 g/dL (14.0-18.0); Immature Granulocytes # (auto) 0.13 K/uL (0.00-0.02); Immature Granulocytes % (auto) 1.2 %; Lymphocytes # (auto) 1.49 K/uL (1.2-3.4); Lymphocytes % (auto) 14.2 %; Mean Corpuscular Hemoglobin 27.9 pg (25-34); Mean Corpuscular Hgb Conc 31.2 g/dL (32-36); Mean Corpuscular Volume 89.5 fL (80-100); Mean Platelet Volume 11.9 fL (7.4-10.4); Monocytes # (auto) 0.84 K/uL (0.11-0.59); Neutrophils # (auto) 7.81 K/uL (1.4-6.5); Neutrophils % (auto) 74.6 %; Platelet Count 169 K/uL (130-400); RDW Coefficient of Variation 15.2 % (11.5-14.5); RDW Standard Deviation 49.2 fL (36.4-46.3); Red Blood Count 3.51 M/uL (4.7-6.1); White Blood Count 10.48 K/uL (4.8-10.8)
[2020-10-07 07:34] LABS: BUN Creatinine Ratio 54.1 (10-20); Calcium 9.8 mg/dl (8.5-10.1); Creatinine Clr Calc Pharmacy 75.1 ml/min; Est GFR (Non-African American) 66.5; Magnesium 2.3 mg/dl (1.8-2.4); Potassium 4.3 mmol/L (3.5-5.1)
[2020-10-07] MEDS: MULTI VIT W/MINERALS LIQUID 15 ML UDP PO SCH (08:10)
[2020-10-07] MEDS: PREGABALIN 100 MG CAP PO SCH ×2 (08:10→20:33)
[2020-10-07] MEDS: DOCUSATE SODIUM SYRUP 100 MG/10 ML UDC PO SCH (08:11)
[2020-10-07] MEDS: METOPROLOL TARTRATE 25 MG TAB PO SCH ×2 (08:11→20:27)
[2020-10-07] MEDS: POLYETHYLENE (MIRALAX) 17 GM PACK PO SCH (08:11)
[2020-10-07] MEDS: FAMOTIDINE 20 MG TAB PO SCH ×2 (08:12→20:28)
[2020-10-07] MEDS: allopurinoL 100 MG TAB PO SCH (08:12)
[2020-10-07] MEDS: THIAMINE HCL 100 MG TAB NG SCH (08:19)
[2020-10-07] MEDS: SENNOSIDES 8.8 MG/5 ML UDC PO SCH (08:19)
[2020-10-07] MEDS ORDERED: OLANZapine 10 MG/2.1 ML SDV IM ONE ×2 (09:06→12:55)
[2020-10-07] MEDS ORDERED: OLANZapine 10 MG/2.1 ML SDV IM STA ×3 (09:15→19:23)
--- NOTE | 2020-10-07 09:42 | XRay Report ---
XR chest 1V portable HISTORY: Pneumonia. Respiratory failure. Follow-up. COMPARISON: Chest 10/04/2020. FINDINGS: The lines and tubes remain unchanged in position with the endotracheal tube terminates 5.1 cm from the jake. Interstitial thickening and hazy bilateral airspace opacities persist. There are low lung volumes. The heart remains mildly enlarged. No pneumothorax. No definite pleural effusions. IMPRESSION: 1. Satisfactory support line placement. 2. Bilateral hazy airspace opacities and interstitial thickening persists. This may represent a pneum onia and/or pulmonary edema ACT 112: Negative or not required by law. Electronically signed by: Job Bailey M.D. 10/07/2020 9:41 AM
--- NOTE | 2020-10-07 10:46 | Critical Care Progress Note ---
Date of Service October 07, 2020 Assessment & Plan (1) Acute metabolic encephalopathy: Reason Critically Ill: 69-year-old male with acute hypoxic respiratory failure due to Covid 19 pneumonia, confusion and delirium. Needed to be intubated for agitation, encephalopathy and hypoxia on 09/25/2020 Neuro - Fentanyl has been off since yesterday. We are continuing Precedex drip and will wean as able. He has ongoing delirium. Continue Lyrica 100 mg twice daily. He was weaned down yesterday. Can continue to wean further tomorrow. He was given 2.5 mg of Zyprexa today and responded very well. He does have a history of alcohol abuse. Continue thiamine. Cardiac -intermittent atrial flutter. Currently on therapeutic dosing of Lovenox. Continue metoprolol 25 mg twice daily. Respiratory - Currently intubation day #12. He is currently on minimal vent settings with an FiO2 of 30%. He is currently on pressure support trial and tolerating this well. Mental status continues to preclude him from being unable to be extubated. He is being treated for MRSA pneumonia. He is also on cefepime and caspofungin given ongoing fevers. Continue cefepime and caspofungin for total of 7 days. Continue vancomycin for total of 10 days. Notably, procalcitonin has been negative. Recent CT chest reviewed which demonstrated bilateral dense infiltrates. He completed a course of Decadron for Covid pneumonia. If mental status does not improve substantially, will need tracheostomy early next week. GI - Continue tube feeds. Continue bowel regimen. He has not had a bowel movement in 3 days. Will order for soapsuds enema. Stress ulcer prophylaxis with Pepcid 20 mg twice a day. RENAL/LYTES - BUN is a bit elevated. Creatinine stable. Continue free water flushes through the NG tube. Monitor urine output. ENDO - No history of diabetes, ICU hyperglycemic protocol Hypothyroidcontinue Synthroid when able HEME - History of anemia, H&H currently stable at this time and no indication for transfusion. Monitor CBCs ID - Treatment as above. Cultures negative to date. --Prophylaxis VTE: Lovenox 100mg BID GI: Pepcid Lines: Right IJ 09/25, positive Rodriguez, intubated 09/25 Diet: Tube feeding Overall prognosis is poor. Appreciate palliative care input. Discussed with bedside RN. I have personally spent additional 37 minutes of critical care time in the direct management of this patient. This is a life/limb threatening event. This includes time spent evaluating patient, direct bedside care, chart review, placing orders, interpretation of diagnostic studies, discussion with consultants, patient, and family members, as well as other required patient management activities. This time is exclusive of all separately billable procedures, and teaching time and separate from and in addition to any other critical care service time. Please note the above document was generated using voice recognition software. It may contain grammatical, syntax or spelling errors. (2) Acute on chronic diastolic CHF (congestive heart failure): (3) Acute respiratory failure with hypoxia: (4) Pneumonia due to COVID-19 virus: (5) GUS on CPAP: (6) Palliative care encounter: (7) Hypotension (arterial): Admission and Anticipated Discharge Date Admission Date: September 22, 2020 Subjective Patient without evidence of fever since 1 AM this morning. He was a bit deliri ous and agitated overnight. He was also delirious this morning. He received 2.5 mg of IM Zyprexa with significant improvement of agitation. He is now somewhat sleepy. He is requiring 1.4 mcg an hour Precedex. He is off fentanyl since yesterday. Nurse reports that despite agitation, he does seem to have more purposeful movements today. He was trying to pull at his endotracheal tube. Review of Systems Review of Systems: Unobtainable due to endotracheal tube Physical Exam Constitutional: + frail appearing and + mechanically ventilated Eyes: PERRL, conjunctivae normal, anicteric sclerae ENMT: external ear and nose normal, oropharynx normal Neck: normal visual inspection Respiratory: Coarse breath sounds on the ventilator. Cardiovascular: RRR, no murmur, no edema Gastrointestinal (Abdomen): normal bowel sounds, soft, nontender, no hepatosplenomegaly Musculoskeletal: no cyanosis or clubbing, extremities motor strength 5/5 Skin: no rashes, warm and dry Neurologic: Unable to assess due to intubation status. Psychiatric: Unable to assess due to intubation status. Results & Data Results & Data ([facility]) Vital Signs (Past 12 Hours) Vital Signs Temp Pulse Resp BP Pulse Ox 10/07/20 08:00 98.6 F 82 165/64 H 100 10/07/20 07:56 80 28 H 97 10/07/20 07:00 98.4 F 74 136/67 96 10/07/20 06:30 98.4 F 65 96 10/07/20 06:15 98.2 F 66 96 10/07/20 06:00 98.2 F 66 147/61 H 96 10/07/20 05:45 98.2 F 70 96 10/07/20 05:30 98.2 F 64 96 10/07/20 05:15 98.1 F 68 96 10/07/20 05:00 98.4 F 59 L 129/57 L 96 10/07/20 04:45 98.4 F 66 96 10/07/20 04:30 98.4 F 61 95 10/07/20 04:23 98.4 F 78 139/54 L 97 10/07/20 04:15 98.2 F 62 95 10/07/20 04:00 98.2 F 65 18 139/54 L 95 10/07/20 03:45 98.4 F 66 95 10/07/20 03:30 98.4 F 66 94 10/07/20 03:28 98.4 F 71 141/56 H 94 10/07/20 03:15 98.4 F 65 94 10/07/20 03:00 98.4 F 68 141/56 H 94 10/07/20 02:45 98.4 F 70 94 10/07/20 02:30 98.6 F 73 94 10/07/20 02:15 98.8 F 77 94 10/07/20 02:00 98.8 F 76 133/56 L 94 10/07/20 01:57 74 19 94 10/07/20 01:45 99.0 F 78 94 10/07/20 01:30 99.1 F 82 94 10/07/20 01:15 99.5 F 84 94 10/07/20 01:00 99.9 F H 85 110/53 L 94 10/07/20 00:45 100.2 F H 83 94 10/07/20 00:30 100.8 F H 76 94 10/07/20 00:25 29 H 10/07/20 00:15 101.1 F H 78 94 10/07/20 00:05 101.3 F H 81 109/65 94 10/07/20 00:00 101.3 F H 83 16 109/65 93 10/06/20 23:55 88 10/06/20 23:45 101.3 F H 99 H 92 10/06/20 23:41 101.3 F H 102 H 147/58 H 94 10/06/20 23:30 101.3 F H 108 H 55 L 10/06/20 23:15 101.1 F H 113 H 85 L 10/06/20 23:00 101.1 F H 90 169/80 H 91 10/06/20 22:45 100.9 F H 136 H 80 L I reviewed the vital signs, labs and imaging Coding Level of Care Code 33850 Subseq Hosp Care Lvl 3 Diagnoses Acute metabolic encephalopathy G93.41 Acute on chronic diastolic CHF (congestive heart failure) I50.33 Acute respiratory failure with hypoxia J96.01 Pneumonia due to COVID-19 virus U07.1; J12.89 GUS on CPAP G47.33; Z99.89 Palliative care encounter Z51.5 Hypotension (arterial) I95.9
[2020-10-07] MEDS ORDERED: VANCOMYCIN TROUGH ONE (11:30)
[2020-10-07] MEDS: CASPOFUNGIN 50 MG in SODIUM CHLORIDE 0.9% 250 ML IV SCH (12:30)
[2020-10-07] MEDS: VANCOMYCIN HCL 1,250 MG in SODIUM CHLORIDE 0.9% 250 ML IV SCH (12:31)
[2020-10-07] MEDS: ENOXAPARIN 100 MG/1ML SYR SQ SCH (12:31)
[2020-10-07] MEDS: ACETAMINOPHEN SUSP 325 MG/10.15 ML UDC PO PRN (13:16)
--- NOTE | 2020-10-07 13:52 | Pharmacy Report ---
Pharmacy Abx Dose Short Note - Date of Service October 07, 2020 - Assessment & Plan Assessment 69 year old M receiving VANCOMYCIN/CEFEPIME/CASPOFUNGIN for treatment of MRSA PNA with ongoing fevers. Day # 8 of VANCOMYCIN antimicrobial therapy. Plan Vancomycin * Trough level of 19.9 mcg/mL is therapeutic, although at the high end of goal trough range. * Per 10/07/20 business analysis analyst note, Vancomycin is to continue for 10 days total therapy (which would be 10/09/20). * Vancomycin dose was administered today. Rather than change ongoing dosing to prevent supratherapeutic levels, will retime remaining 2 doses on 10/08 and 10/09 to be given at 1800, rather than 1200, to allow more time for level to drop. * Goal trough level for MRSA PNA : 15 to 20 mcg/mL. * No repeat levels ordered, however will order levels and likely adjust dose if therapy is continued past 10/09. Pharmacy will continue to follow and will adjust dose/frequency as necessary. Thank you.
[2020-10-07] MEDS: PEPTAMEN INTENSE VHP 1.0 CAL 1,000 ML BAG OG SCH (15:53)
[2020-10-07] MEDS ORDERED: fentaNYL citrate 100 MCG/2 ML VIAL IV STA ×2 (21:52→23:41)
--- NOTE | 2020-10-07 22:23 | Electrocardiogram Report ---
Test Reason : Blood Pressure : / mmHG Vent. Rate : 066 BPM Atrial Rate : 066 BPM P-R Int : 214 ms QRS Dur : 138 ms QT Int : 404 ms P-R-T Axes : 018 010 016 degrees QTc Int : 423 ms Poor data quality, interpretation may be adversely affected Sinus rhythm with 1st degree A-V block with occasional Premature ventricular complexes Right bundle branch block Abnormal ECG When compared with ECG of 27-SEP-2020 10:23, Atrial flutter with 2 to 1 block is no longer Present T wave inversion no longer evident in Anterior leads Confirmed by Ancelmo Shah ([id number]) on 10/07/2020 10:22:58 PM Referred By: REFERRED SELF Confirmed By:Ancelmo Shah
--- NOTE | 2020-10-07 23:03 | Hospitalist Progress Note ---
Date of Service October 07, 2020 Assessment & Plan (1) Pneumonia due to COVID-19 virus: -Dexamethasone 6mg IV daily, stopped by pulmonary med no Remdesivir or plasma as he presented 9 days into illness -Albuterol HFA PRN with acute hypoxic respiratory failure treated with BIPAP, tolerated well initially 09/25: intubated and ventilated ID consult 10/02/30 Recommendations: - Recommend stopping Ceftriaxone IV. - Recommend continuing Vancomycin IV for 10 - 14 days. Bacterial superinfection after COVID infection has been well documented Now on Caspofungin, Cefepime and Vancomycin (2) Acute respiratory failure with hypoxia: Secondary to Covid-19 PNA, stable with BIPAP on 09/24 however, he deteriorated, required intubation on 09/25 management per pulmonology minimal ventilatory settings at this time, delirium is limiting ability to extub ate (3) Acute metabolic encephalopathy: has a history of delirium when hospitalized at baseline he drinks at least 3 beers a day. antibiotics -- vancomycin and Cefepime plus caspofungin Zyprexa was tried, now stopped propofol stopped, trying Precedex again Lyrica 100mg BID (4) Acute kidney injury: resolved Cr down to 1.11, electrolytes stable making adequate urine, use Lasix PRN for negative fluid balance (5) Acute on chronic diastolic CHF (congestive heart failure): related to aortic stenosis appears euvolemic, use Lasix PRN for negative fluid balance (6) Hyponatremia: was probably related to CHF - corrected after diuresis. follow periodically (7) Vitamin D deficiency: -Continue supplementation (8) Restrictive lung disease: fortunately no hypercapnea on ABG (9) GUS on CPAP: Chronic -again fortunately no hypercapnea (10) Gout: Chronic. Stable. 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 continue metoprolol and follow (13) Hypothyroidism: Chronic. Stable. Last TSH in 10/24 = 3.95 -Continue Synthroid 25mcg po daily (14) Opioid dependence: Patient with chronic pain and neuropathy -Continue Lyrica 100mg po BID (15) Acid reflux: Chronic. Stable -Pepcid 20mg IV BID - may have effect on disease severity in Covid-19 (16) DVT prophylaxis: lovenox, therapeutic dosing (17) Atrial flutter: intermittent, use Amiodarone if needed, metoprolol bid 25 (18) MRSA (methicillin resistant staphylococcus aureus) pneumonia: MRSA nasal swab positive vancomycin for antibiotic coverage Admission and Anticipated Discharge Date Admission Date: September 22, 2020 Subjective delirium persists, making extubation difficult/impossible reviewed chart reviewed labs likely for tracheostomy this upcoming week Review of Systems Review of Systems: Unobtainable due to endotracheal tube Physical Exam Constitutional: well developed, + morbidly obese and + mechanically ventilated; no acute distress Neck: trachea midline and + thick neck Respiratory: + tachypneic and symmetric chest movement (on ventilator) Auscultation: lungs clear to auscultation bilaterally Cardiovascular: Rate/Rhythm: regular rate and regular rhythm Heart Sounds: normal S1 and normal S2; no murmur Extremities: normal capillary refill; no edema Gastrointestinal (Abdomen): normal bowel sounds, soft, nontender, no hepatosplenomegaly Musculoskeletal: no cyanosis or clubbing, extremities motor strength 5/5 Skin: no rashes, warm and dry Neurologic: CN's II-XI intact bilaterally and + obtunded; no focal motor deficits Psychiatric: Orientation: + not alert Lymphatic: no cervical or axillary lymphadenopathy Results & Data Results & Data ([facility]) Vital Signs (Past 12 Hours) Vital Signs Temp Pulse Resp BP Pulse Ox 10/07/20 21:30 37.6 C H 72 94 10/07/20 21:15 37.6 C H 73 94 10/07/20 21:00 37.5 C 74 152/61 H 94 10/07/20 20:45 37.5 C 72 94 10/07/20 20:30 37.4 C 69 95 10/07/20 20:15 37.4 C 70 95 10/07/20 20:00 37.3 C 71 141/55 H 95 10/07/20 19:51 37.3 C 70 134/52 L 94 10/07/20 19:45 37.3 C 69 94 10/07/20 19:37 68 28 H 94 10/07/20 19:30 37.3 C 72 95 10/07/20 19:15 37.2 C 70 94 10/07/20 19:00 37.3 C 70 134/52 L 94 10/07/20 18:45 37.3 C 71 93 01/03/21 18:30 37.3 C 71 93 10/07/20 18:15 37.4 C 71 92 10/07/20 18:00 37.4 C 71 109/48 L 92 10/07/20 17:01 37.7 C H 86 167/62 H 91 10/07/20 17:00 37.7 C H 87 91 10/07/20 16:00 37.9 C H 83 133/59 L 93 10/07/20 15:45 69 29 H 98 10/07/20 15:00 38.4 C H 73 104/82 98 10/07/20 14:00 38.4 C H 72 133/54 L 91 10/07/20 13:00 38.2 C H 89 168/70 H 94 10/07/20 12:24 37.8 C H 130 H 162/72 H 99 10/07/20 12:00 37.8 C H 75 162/72 H 93 Laboratory Results Laboratory Results - last 24 hr 10/07/20 10/07/20 10/07/20 02:10 05:53 05:53 WBC 10.48 RBC 3.51 L Hgb 9.8 L Hct 31.4 L MCV 89.5 MCH 27.9 MCHC 31.2 L RDW Std Deviation 49.2 H RDW Coeff of Bisi 15.2 H Plt Count 169 MPV 11.9 H Immature Gran % (Auto) 1.2 Neut % (Auto) 74.6 Lymph % (Auto) 14.2 Otero % (Auto) 8.0 Eos % (Auto) 1.6 Baso % (Auto) 0.4 Neut # (Auto) 7.81 H Lymph # (Auto) 1.49 Otero # (Auto) 0.84 H Eos # (Auto) 0.17 Baso # (Auto) 0.04 Immature Gran # (Auto) 0.13 H Sample Site R Radial POC pH 7.31 L POC pCO2 36 POC pO2 81 POC HCO3 18 L POC Total CO2 19 L POC Base Excess -8.0 POC ABG O2 Sat 95.0 Jean Claude Test Pass O2 Delivery Device Ventilator POC FiO2 35 PEEP 5 Sodium 141 Potassium 4.3 Chloride 115 H Carbon Dioxide 20 L Anion Gap 5.0 BUN 60 H Creatinine 1.11 Est Cr Clr Drug Dosing 75.1 Est GFR ( Amer) 77.0 Est GFR (Non-Af Amer) 66.5 BUN/Creatinine Ratio 54.1 H Glucose 128 H Calcium 9.8 Phosphorus 3.0 Magnesium 2.3 Vancomycin Trough 10/07/20 11:32 WBC RBC Hgb Hct MCV MCH MCHC RDW Std Deviation RDW Coeff of Bisi Plt Count MPV Immature Gran % (Auto) Neut % (Auto) Lymph % (Auto) Otero % (Auto) Eos % (Auto) Baso % (Auto) Neut # (Auto) Lymph # (Auto) Otero # (Auto) Eos # (Auto) Baso # (Auto) Immature Gran # (Auto) Sample Site POC pH POC pCO2 POC pO2 POC HCO3 POC Total CO2 POC Base Excess POC ABG O2 Sat Jean Claude Test O2 Delivery Device POC FiO2 PEEP Sodium Potassium Chloride Carbon Dioxide Anion Gap BUN Creatinine Est Cr Clr Drug Dosing Est GFR ( Amer) Est GFR (Non-Af Amer) BUN/Creatinine Ratio Glucose Calcium Phosphorus Magnesium Vancomycin Trough 19.9 Medications Administered Current Inpatient Medications Acetaminophen (Acetaminophen Susp 325 Mg/10.15 Ml Udc) 650 mg PO Q6H PRN PRN Reason: Fever Stop: 10/31/20 17:38 Last Admin: 10/07/20 13:16 Dose: 650 mg Documented by: Albuterol (Albuterol Hfa 8 Gm Inhaler) 2 puffs INH Q4H PRN PRN Reason: Shortness Of Breath Stop: 10/22/20 01:56 Albuterol (Albut/Ipratrop 3mg/0.5mg Neb 3 Ml Vial) 3 ml NEB Q8R [facility] Stop: 10/27/20 14:59 Last Admin: 10/07/20 15:44 Dose: 3 ml Documented by: Allopurinol (Allopurinol 100 Mg Tab) 100 mg PO DAILY [facility] Stop: 10/25/20 17:44 Last Admin: 10/07/20 08:12 Dose: 100 mg Documented by: Docusate Sodium (Docusate Sodium Syrup 100 Mg/10 Ml Udc) 100 mg PO QAM [facility] Stop: 10/26/20 10:59 Last Admin: 10/07/20 08:11 Dose: 100 mg Documented by: Enoxaparin Sodium (Enoxaparin 100 Mg/1ml Syr) 100 mg SQ Q12H [facility] Stop: 11/02/20 11:59 Last Admin: 10/07/20 12:31 Dose: 100 mg Documented by: Famotidine (Famotidine 20 Mg Tab) 20 mg PO BID [facility] Stop: 11/01/20 20:59 Last Admin: 10/07/20 20:28 Dose: 20 mg Documented by: Heparin Sodium (Beef Lung) (Heparin 10 Unit/Ml 5 Ml Flush) 5 ml FLUSH PRN PRN PRN Reason: Flush Stop: 10/25/20 22:45 Last Admin: 10/06/20 03:29 Dose: 5 ml Documented by: Hydralazine HCl (Hydralazine Hcl 20 Mg/Ml Vial) 10 mg IV Q6 PRN PRN Reason: Hypertension Stop: 10/24/20 18:54 Last Admin: 09/30/20 07:48 Dose: 10 mg Documented by: Phenylephrine HCl 40 mg/ (Dextrose) 504 mls @ 0 mls/hr IV .Q0M [facility]; Protocol Stop: 11/02/20 09:59 Last Titration: 10/04/20 08:17 Dose: 0 mcg/kg/min, 0 mls/hr Documented by: Caspofungin 50 mg/ Sodium (Chloride) 260 mls @ 260 mls/hr IV Q24H [facility] Stop: 10/11/20 11:59 Last Infusion: 10/07/20 14:38 Dose: Infused Documented by: Dexmedetomidine HCl 400 mcg/ (Sodium Chloride) 100 mls @ 41.25 mls/hr IV .Q2H26M [facility]; Protocol Stop: 10/08/20 11:59 Last Admin: 10/07/20 20:29 Dose: 1.5 mcg/kg/hr, 41.3 mls/hr Documented by: Cefepime HCl 2,000 mg/ Syringe 20 mls @ 5 mls/min IV Q8H [facility] Stop: 10/10/20 19:59 Last Admin: 10/07/20 20:25 Dose: 5 mls/min Documented by: Vancomycin HCl 1,250 mg/ (Sodium Chloride) 275 mls @ 200 mls/hr IV Q24H [facility] Stop: 10/13/20 11:59 Last Infusion: 10/07/20 14:39 Dose: Infused Documented by: Levothyroxine Sodium (Levothyroxine Sodium 25 Mcg Tablet) 25 mcg PO DAILYBB [facility] Stop: 10/28/20 06:29 Last Admin: 10/07/20 05:38 Dose: 25 mcg Documented by: Metoprolol Tartrate (Metoprolol Tartrate 25 Mg Tab) 25 mg PO BID [facility] Stop: 10/27/20 08:59 Last Admin: 10/07/20 20:27 Dose: 25 mg Documented by: Miscellaneous Information (Vancomycin Consult Active) 1 ea N/A UD PRN PRN Reason: Consult Stop: 10/30/20 07:15 Multivitamins/Minerals (Multi Vit W/Minerals Liquid 15 Ml Udp) 15 ml PO QAM [facility] Stop: 10/28/20 08:59 Last Admin: 10/07/20 08:10 Dose: 15 ml Documented by: Nutritional Formula (Peptamen Intense Vhp 1.0 Oscar 1,000 Ml Bag) 1,000 ml [place] [facility] [place] Protocol Stop: 10/26/20 15:59 Last Admin: 10/07/20 15:53 Dose: 1,000 ml Documented by: Polyethylene Glycol (Polyethylene (Miralax) 17 Gm Pack) 17 gm PO DAILY [facility] Stop: 10/31/20 10:44 Last Admin: 10/07/20 08:11 Dose: 17 gm Documented by: Pregabalin (Pregabalin 100 Mg Cap) 100 mg PO BID [facility] Stop: 11/05/20 20:59 Last Admin: 10/07/20 20:33 Dose: 100 mg Documented by: Sennosides (Sennosides 8.8 Mg/5 Ml Udc) 8.8 mg PO QAM [facility] Stop: 10/26/20 10:59 Last Admin: 10/07/20 08:19 Dose: 8.8 mg Documented by: Sterile Water (Tube Feeding Water Flush) 200 ml GT Q6H [facility] Stop: 10/31/20 10:29 Last Admin: 10/07/20 16:33 Dose: 200 ml Documented by: Thiamine HCl (Thiamine Hcl 100 Mg Tab) 100 mg NG DAILY [facility] Stop: 11/02/20 08:59 Last Admin: 10/07/20 08:19 Dose: 100 mg Documented by: PG Care Time/CCT Total # of Minutes Spent Total Time Spent with Patient: Total time spent is greater than 50% in coordination of care (as documented) at patient's floor/unit and/or counseling patient: Coding Level of Care Code 23369 Subseq Hosp Care Lvl 2 Diagnoses Pneumonia due to COVID-19 virus U07.1; J12.89 Acute respiratory failure with hypoxia J96.01 Acute metabolic encephalopathy G93.41 Acute kidney injury N17.9 Acute on chronic diastolic CHF (congestive heart failure) I50.33 Hyponatremia E87.1 Vitamin D deficiency E55.9 Restrictive lung disease J98.4 GUS on CPAP G47.33; Z99.89 Gout M10.9 Chronicity: unspecified Gout etiology: unspecified cause Gout site: unspecified site BPH with obstruction/lower urinary tract symptoms N40.1; N13.8 Hypertension I10 Hypertension type: essential hypertension Hypothyroidism E03.9 Hypothyroidism type: unspecified Opioid dependence F11.20 Substance use status: uncomplicated Acid reflux K21.9 Esophagitis presence: esophagitis presence not specified DVT prophylaxis Z29.9 Atrial flutter I48.92 MRSA (methicillin resistant staphylococcus aureus) pneumonia J15.212 (1) Opioid dependence Substance use status: uncomplicated Qualified Code(s): F11.20 - Opioid dependence, uncomplicated (2) Gout Chronicity: unspecified Gout etiology: unspecified cause Gout site: unspecified site Qualified Code(s): M10.9 - Gout, unspecified (3) Hypothyroidism Hypothyroidism type: unspecified Qualified Code(s): E03.9 - Hypothyroidism, unspecified (4) Acid reflux Esophagitis presence: esophagitis presence not specified Qualified Code(s): K21.9 - Gastro-esophageal reflux disease without esophagitis (5) Hypertension Hypertension type: essential hypertension Qualified Code(s): I10 - Essential (primary) hypertension
[2020-10-08] MEDS: ENOXAPARIN 100 MG/1ML SYR SQ SCH ×2 (00:20→23:33)
[2020-10-08] MEDS: TUBE FEEDING WATER FLUSH GT SCH ×5 (00:23→22:43)
[2020-10-08 02:47] LABS: iSTAT Allen Test Pass; iSTAT Arterial Blood Gas HCO3 18 meg/L (19-24); iSTAT Arterial Blood Gas pCO2 33 mmHg (35-46); iSTAT Arterial Blood Gas pH 7.34 (7.35-7.45); iSTAT Arterial Blood Gas pO2 72 mmHg (80-95); iSTAT Carbon Dioxide 19 mmol/L (24-31); iSTAT FiO2 30 %; iSTAT Site R Radial
[2020-10-08] MEDS: DEXMEDETOMIDINE HCL 400 MCG in 0.9 % SODIUM CHLORIDE 96 ML IV SCH ×5 (03:21→12:31)
[2020-10-08] MEDS: CEFEPIME 2,000 MG in SYRINGE 0 ML IV SCH ×3 (04:39→21:20)
[2020-10-08] MEDS: LEVOTHYROXINE SODIUM 25 MCG TABLET PO SCH (05:23)
[2020-10-08 06:25] LABS: Hematocrit (blood only) 28.4 % (42-52); Hemoglobin 9.3 g/dL (14.0-18.0); Mean Corpuscular Hgb Conc 32.7 g/dL (32-36); Mean Corpuscular Volume 88.5 fL (80-100); Mean Platelet Volume 11.8 fL (7.4-10.4); Platelet Count 178 K/uL (130-400); RDW Coefficient of Variation 15.2 % (11.5-14.5); RDW Standard Deviation 49.4 fL (36.4-46.3); Red Blood Count 3.21 M/uL (4.7-6.1); White Blood Count 9.34 K/uL (4.8-10.8)
[2020-10-08 06:51] LABS: BUN Creatinine Ratio 49.2 (10-20); Calcium 9.5 mg/dl (8.5-10.1); Creatinine Clr Calc Pharmacy 76.5 ml/min; Est GFR (African American) 79.6; Est GFR (Non-African American) 68.7; Magnesium 2.1 mg/dl (1.8-2.4); Phosphorus 2.9 mg/dl (2.5-4.9); Potassium 4.4 mmol/L (3.5-5.1)
[2020-10-08 07:00] LABS: Basophils # (auto) 0.04 K/uL (0-0.2); Basophils % (auto) 0.4 %; Eosinophils # (auto) 0.21 K/uL (0-0.5); Eosinophils % (auto) 2.2 %; Immature Granulocytes # (auto) 0.12 K/uL (0.00-0.02); Immature Granulocytes % (auto) 1.3 %; Lymphocytes # (auto) 1.65 K/uL (1.2-3.4); Lymphocytes % (auto) 17.7 %; Monocytes # (auto) 0.81 K/uL (0.11-0.59); Monocytes % (auto) 8.7 %; Neutrophils # (auto) 6.51 K/uL (1.4-6.5); Neutrophils % (auto) 69.7 %
--- NOTE | 2020-10-08 08:11 | Hospitalist Progress Note ---
Date of Service October 08, 2020 Assessment & Plan (1) Pneumonia due to COVID-19 virus: -Dexamethasone 6mg IV daily, stopped by pulmonary med no Remdesivir or plasma as he presented 9 days into illness -Albuterol HFA PRN with acute hypoxic respiratory failure treated with BIPAP, tolerated well initially 09/25: intubated and ventilated ID consult 10/02/30 Recommendations: - Recommend stopping Ceftriaxone IV. - Recommend continuing Vancomycin IV for 10 - 14 days. Bacterial superinfection after COVID infection has been well documented Now on Caspofungin, Cefepime and Vancomycin extubated on 10/08, breathing well on 3L, wet cough and rattles in throat but clearing his airway (2) Acute respiratory failure with hypoxia: Secondary to Covid-19 PNA, stable with BIPAP on 09/24 however, he deteriorated, required intubation on 09/25 on 10/08 he was on minimal vent settings but was still delirious he was successfully extubated, breathing on 3L NC, but still very disoriented will watch closely for any signs of respiratory compromise (3) Acute metabolic encephalopathy: has a history of delirium when hospitalized at baseline he drinks at least 3 beers a day. antibiotics -- vancomycin and Cefepime plus caspofungin Zyprexa was tried, now stopped propofol stopped, Precedex now off with being extubated Lyrica 100mg BID hopeful that extubation and stopping all sedation will improve mental status (4) Acute kidney injury: resolved Cr down to baseline, electrolytes stable making adequate urine, use Lasix PRN for negative fluid balance (5) Acute on chronic diastolic CHF (congestive heart failure): related to aortic stenosis appears euvolemic, use Lasix PRN for negative fluid balance (6) Hyponatremia: was probably related to CHF - corrected after diuresis. follow periodically (7) Vitamin D deficiency: -Continue supplementation (8) Restrictive lung disease: fortunately no hypercapnea on ABG (9) GUS on CPAP: Chronic -again fortunately no hypercapnea (10) Gout: Chronic. Stable. 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 continue metoprolol and follow (13) Hypothyroidism: Chronic. Stable. Last TSH in 10/24 = 3.95 -Continue Synthroid 25mcg po daily (14) Opioid dependence: Patient with chronic pain and neuropathy -Continue Lyrica 100mg po BID (15) Acid reflux: Chronic. Stable -Pepcid 20mg IV BID - may have effect on disease severity in Covid-19 (16) DVT prophylaxis: lovenox, therapeutic dosing (17) Atrial flutter: intermittent, use Amiodarone if needed, metoprolol bid 25 (18) MRSA (methicillin resistant staphylococcus aureus) pneumonia: MRSA nasal swab positive vancomycin for antibiotic coverage Admission and Anticipated Discharge Date Admission Date: September 22, 2020 Subjective patient extubated early this afternoon breathing well on 3L after extubation, very confused, would not follow commands for me put up his fist when I tried to examine him I called his and provided an update, hopeful that coming off the vent and limiting sedation will improve his delirium reviewed chart, reviewed labs Review of Systems Review of Systems: Unobtainable due to cognitive status (confused) Physical Exam Constitutional: well developed and + morbidly obese; no acute distress Neck: trachea midline and + thick neck Respiratory: + cough; no respiratory distress and no labored breathing Auscultation: + rhonchi Cardiovascular: Rate/Rhythm: regular rate and regular rhythm Heart Sounds: normal S1 and normal S2; no murmur Extremities: normal capillary refill; no edema Gastrointestinal (Abdomen): normal bowel sounds, soft, nontender, no hepatosplenomegaly Musculoskeletal: no cyanosis or clubbing, extremities motor strength 5/5 Skin: no rashes, warm and dry Neurologic: CN's II-XI intact bilaterally and + obtunded; no focal motor deficits Psychiatric: Orientation: + not alert and + not oriented x 3 Lymphatic: no cervical or axillary lymphadenopathy Results & Data Results & Data ([facility]) Vital Signs (Past 12 Hours) Vital Signs Temp Pulse Pulse Resp BP BP Pulse Ox 10/08/20 08:01 37.5 C 65 18 148/56 H 94 10/08/20 06:30 37.6 C H 73 96 10/08/20 06:15 37.6 C H 72 94 10/08/20 06:00 37.5 C 70 152/64 H 94 10/08/20 05:45 37.6 C H 68 93 10/08/20 05:30 37.6 C H 63 94 10/08/20 05:15 37.6 C H 68 92 10/08/20 05:00 37.6 C H 66 135/57 L 93 10/08/20 04:45 37.6 C H 62 93 10/08/20 04:30 37.6 C H 62 94 10/08/20 04:15 37.6 C H 61 92 10/08/20 04:00 37.6 C H 73 137/58 L 93 10/08/20 03:45 37.6 C H 64 93 10/08/20 03:30 37.6 C H 62 94 10/08/20 03:15 37.6 C H 62 94 10/08/20 03:00 37.6 C H 68 138/53 L 94 10/08/20 02:45 37.6 C H 67 94 10/08/20 02:30 37.6 C H 78 94 10/08/20 02:15 37.6 C H 69 93 10/08/20 02:06 71 26 H 95 10/08/20 02:00 37.6 C H 72 130/53 L 93 10/08/20 01:45 37.7 C H 67 92 10/08/20 01:30 37.8 C H 68 92 10/08/20 01:15 37.9 C H 70 92 10/08/20 01:00 38.0 C H 74 118/53 L 93 10/08/20 00:45 38.2 C H 76 93 10/08/20 00:30 38.3 C H 85 91 10/08/20 00:22 38.3 C H 85 137/65 91 10/08/20 00:15 38.4 C H 90 92 10/08/20 00:00 38.4 C H 100 H 88 L 10/07/20 23:45 38.3 C H 98 H 30 H 93 10/07/20 23:30 38.2 C H 106 H 97 10/07/20 23:15 38.0 C H 107 H 87 L 10/07/20 23:01 37.9 C H 91 H 149/49 H 95 10/07/20 23:00 37.9 C H 89 95 10/07/20 22:45 37.9 C H 68 95 10/07/20 22:30 37.8 C H 68 94 10/07/20 22:15 37.8 C H 70 93 10/07/20 22:00 37.8 C H 72 149/60 H 93 10/07/20 21:45 37.7 C H 70 93 10/07/20 21:30 37.6 C H 72 94 10/07/20 21:15 37.6 C H 73 94 10/07/20 21:00 37.5 C 74 152/61 H 94 10/07/20 20:45 37.5 C 72 94 10/07/20 20:30 37.4 C 69 95 10/07/20 20:15 37.4 C 70 95 Laboratory Results Laboratory Results - last 24 hr 10/07/20 10/08/20 10/08/20 11:32 02:25 05:27 WBC RBC Hgb Hct MCV MCH MCHC RDW Std Deviation RDW Coeff of Bisi Plt Count MPV Immature Gran % (Auto) Neut % (Auto) Lymph % (Auto) [place] % (Auto) Eos % (Auto) Baso % (Auto) Neut # (Auto) Lymph # (Auto) [place] # (Auto) Eos # (Auto) Baso # (Auto) Immature Gran # (Auto) Sample Site R Radial POC pH 7.34 L POC pCO2 33 L POC pO2 72 L POC HCO3 18 L POC Total CO2 19 L POC Base Excess -8.0 POC ABG O2 Sat 94.0 Jean Claude Test Pass O2 Delivery Device Ventilator POC FiO2 30 PEEP 5 Sodium 142 Potassium 4.4 Chloride 116 H Carbon Dioxide 22 Anion Gap 4.0 BUN 53 H Creatinine 1.08 Est Cr Clr Drug Dosing 76.5 Est GFR ( Amer) 79.6 Est GFR (Non-Af Amer) 68.7 BUN/Creatinine Ratio 49.2 H Glucose 121 H Calcium 9.5 Phosphorus 2.9 Magnesium 2.1 Vancomycin Trough 19.9 10/08/20 05:27 WBC 9.34 RBC 3.21 L Hgb 9.3 L Hct 28.4 L MCV 88.5 MCH 29.0 MCHC 32.7 RDW Std Deviation 49.4 H RDW Coeff of Bisi 15.2 H Plt Count 178 MPV 11.8 H Immature Gran % (Auto) 1.3 Neut % (Auto) 69.7 Lymph % (Auto) 17.7 [place] % (Auto) 8.7 Eos % (Auto) 2.2 Baso % (Auto) 0.4 Neut # (Auto) 6.51 H Lymph # (Auto) 1.65 [place] # (Auto) 0.81 H Eos # (Auto) 0.21 Baso # (Auto) 0.04 Immature Gran # (Auto) 0.12 H Sample Site POC pH POC pCO2 POC pO2 POC HCO3 POC Total CO2 POC Base Excess POC ABG O2 Sat [place] Test O2 Delivery Device POC FiO2 PEEP Sodium Potassium Chloride Carbon Dioxide Anion Gap BUN Creatinine Est Cr Clr Drug Dosing Est GFR ( Amer) Est GFR (Non-Af Amer) BUN/Creatinine Ratio Glucose Calcium Phosphorus Magnesium Vancomycin Trough Medications Administered Current Inpatient Medications Acetaminophen (Acetaminophen Susp 325 Mg/10.15 Ml Udc) 650 mg PO Q6H PRN PRN Reason: Fever Stop: 10/31/20 17:38 Last Admin: 10/07/20 13:16 Dose: 650 mg Documented by: Albuterol (Albuterol Hfa 8 Gm Inhaler) 2 puffs INH Q4H PRN PRN Reason: Shortness Of Breath Stop: 10/22/20 01:56 Albuterol (Albut/Ipratrop 3mg/0.5mg Neb 3 Ml Vial) 3 ml NEB Q8R [facility] Stop: 10/27/20 14:59 Last Admin: 10/07/20 23:47 Dose: 3 ml Documented by: Allopurinol (Allopurinol 100 Mg Tab) 100 mg PO DAILY [facility] Stop: 10/25/20 17:44 Last Admin: 10/07/20 08:12 Dose: 100 mg Documented by: Docusate Sodium (Docusate Sodium Syrup 100 Mg/10 Ml Udc) 100 mg PO QAM [facility] Stop: 10/26/20 10:59 Last Admin: 10/07/20 08:11 Dose: 100 mg Documented by: Enoxaparin Sodium (Enoxaparin 100 Mg/1ml Syr) 100 mg SQ Q12H [facility] Stop: 11/02/20 11:59 Last Admin: 10/08/20 00:20 Dose: 100 mg Documented by: Famotidine (Famotidine 20 Mg Tab) 20 mg PO BID [facility] Stop: 11/01/20 20:59 Last Admin: 10/07/20 20:28 Dose: 20 mg Documented by: Heparin Sodium (Beef Lung) (Heparin 10 Unit/Ml 5 Ml Flush) 5 ml FLUSH PRN PRN PRN Reason: Flush Stop: 10/25/20 22:45 Last Admin: 10/06/20 03:29 Dose: 5 ml Documented by: Hydralazine HCl (Hydralazine Hcl 20 Mg/Ml Vial) 10 mg IV Q6 PRN PRN Reason: Hypertension Stop: 10/24/20 18:54 Last Admin: 09/30/20 07:48 Dose: 10 mg Documented by: Phenylephrine HCl 40 mg/ (Dextrose) 504 mls @ 0 mls/hr IV .Q0M [facility]; Protocol Stop: 11/02/20 09:59 Last Titration: 10/04/20 08:17 Dose: 0 mcg/kg/min, 0 mls/hr Documented by: Caspofungin 50 mg/ Sodium (Chloride) 260 mls @ 260 mls/hr IV Q24H [facility] Stop: 10/11/20 11:59 Last Infusion: 10/07/20 14:38 Dose: Infused Documented by: Dexmedetomidine HCl 400 mcg/ (Sodium Chloride) 100 mls @ 41.25 mls/hr IV .Q2H26M [facility]; Protocol Stop: 10/08/20 11:59 Last Admin: 10/08/20 07:25 Dose: 1.5 mcg/kg/hr, 41.3 mls/hr Documented by: Cefepime HCl 2,000 mg/ Syringe 20 mls @ 5 mls/min IV Q8H [facility] Stop: 10/10/20 19:59 Last Admin: 10/08/20 04:39 Dose: 5 mls/min Documented by: Vancomycin HCl 1,250 mg/ (Sodium Chloride) 275 mls @ 200 mls/hr IV Q24H [facility] Stop: 10/13/20 11:59 Last Infusion: 10/07/20 14:39 Dose: Infused Documented by: Levothyroxine Sodium (Levothyroxine Sodium 25 Mcg Tablet) 25 mcg PO DAILYBB [facility] Stop: 10/28/20 06:29 Last Admin: 10/08/20 05:23 Dose: 25 mcg Documented by: Metoprolol Tartrate (Metoprolol Tartrate 25 Mg Tab) 25 mg PO BID [facility] Stop: 10/27/20 08:59 Last Admin: 10/07/20 20:27 Dose: 25 mg Documented by: Miscellaneous Information (Vancomycin Consult Active) 1 ea N/A UD PRN PRN Reason: Consult Stop: 10/30/20 07:15 Multivitamins/Minerals (Multi Vit W/Minerals Liquid 15 Ml Udp) 15 ml PO QAM [facility] Stop: 10/28/20 08:59 Last Admin: 10/07/20 08:10 Dose: 15 ml Documented by: Nutritional Formula (Peptamen Intense Vhp 1.0 Oscar 1,000 Ml Bag) 1,000 ml OG UD [facility]; Protocol Stop: 10/26/20 15:59 Last Admin: 10/07/20 15:53 Dose: 1,000 ml Documented by: Polyethylene Glycol (Polyethylene (Miralax) 17 Gm Pack) 17 gm PO DAILY [facility] Stop: 10/31/20 10:44 Last Admin: 10/07/20 08:11 Dose: 17 gm Documented by: Pregabalin (Pregabalin 100 Mg Cap) 100 mg PO BID [facility] Stop: 11/05/20 20:59 Last Admin: 10/07/20 20:33 Dose: 100 mg Documented by: Sennosides (Sennosides 8.8 Mg/5 Ml Udc) 8.8 mg PO QAM [facility] Stop: 10/26/20 10:59 Last Admin: 10/07/20 08:19 Dose: 8.8 mg Documented by: Sterile Water (Tube Feeding Water Flush) 200 ml GT Q6H [facility] Stop: 10/31/20 10:29 Last Admin: 10/08/20 05:23 Dose: 200 ml Documented by: Thiamine HCl (Thiamine Hcl 100 Mg Tab) 100 mg NG DAILY [facility] Stop: 11/02/20 08:59 Last Admin: 10/07/20 08:19 Dose: 100 mg Documented by: PG Care Time/CCT Total # of Minutes Spent Total Time Spent with Patient: Total time spent is greater than 50% in coordination of care (as documented) at patient's floor/unit and/or counseling patient: Coding Level of Care Code 18091 Subseq Hosp Care Lvl 2 Diagnoses Pneumonia due to COVID-19 virus U07.1; J12.89 Acute respiratory failure with hypoxia J96.01 Acute metabolic encephalopathy G93.41 Acute kidney injury N17.9 Acute on chronic diastolic CHF (congestive heart failure) I50.33 Hyponatremia E87.1 Vitamin D deficiency E55.9 Restrictive lung disease J98.4 GUS on CPAP G47.33; Z99.89 Gout M10.9 Chronicity: unspecified Gout etiology: unspecified cause Gout site: unspecified site BPH with obstruction/lower urinary tract symptoms N40.1; N13.8 Hypertension I10 Hypertension type: essential hypertension Hypothyroidism E03.9 Hypothyroidism type: unspecified Opioid dependence F11.20 Substance use status: uncomplicated Acid reflux K21.9 Esophagitis presence: esophagitis presence not specified DVT prophylaxis Z29.9 Atrial flutter I48.92 MRSA (methicillin resistant staphylococcus aureus) pneumonia J15.212 (1) Opioid dependence Substance use status: uncomplicated Qualified Code(s): F11.20 - Opioid dependence, uncomplicated (2) Gout Chronicity: unspecified Gout etiology: unspecified cause Gout site: unspecified site Qualified Code(s): M10.9 - Gout, unspecified (3) Hypothyroidism Hypothyroidism type: unspecified Qualified Code(s): E03.9 - Hypothyroidism, unspecified (4) Acid reflux Esophagitis presence: esophagitis presence not specified Qualified Code(s): K21.9 - Gastro-esophageal reflux disease without esophagitis (5) Hypertension Hypertension type: essential hypertension Qualified Code(s): I10 - Essential (primary) hypertension
[2020-10-08] MEDS: ALBUT/IPRATROP 3MG/0.5MG NEB 3 ML VIAL NEB SCH ×3 (08:18→23:21)
[2020-10-08] MEDS: PREGABALIN 100 MG CAP PO SCH ×2 (08:46→23:33)
[2020-10-08] MEDS: FAMOTIDINE 20 MG TAB PO SCH (08:46)
[2020-10-08] MEDS: THIAMINE HCL 100 MG TAB NG SCH (08:46)
[2020-10-08] MEDS: POLYETHYLENE (MIRALAX) 17 GM PACK PO SCH (08:46)
[2020-10-08] MEDS: METOPROLOL TARTRATE 25 MG TAB PO SCH ×2 (08:46→23:33)
[2020-10-08] MEDS: SENNOSIDES 8.8 MG/5 ML UDC PO SCH (08:46)
[2020-10-08] MEDS: allopurinoL 100 MG TAB PO SCH (08:46)
[2020-10-08] MEDS: DOCUSATE SODIUM SYRUP 100 MG/10 ML UDC PO SCH (08:47)
[2020-10-08] MEDS: MULTI VIT W/MINERALS LIQUID 15 ML UDP PO SCH (08:47)
--- NOTE | 2020-10-08 09:19 | XRay Report ---
XR chest 1V portable CLINICAL HISTORY: Respiratory failure. COMPARISON STUDY: Chest radiograph October 07, 2020. FINDINGS: Tip of endotracheal tube is 4.6 cm above the jake. Right internal jugular central line re scot in place. Tip of nasogastric tube is below the lower aspect of this image but at least within t he proximal body of the stomach. There are small bilateral pleural effusions. Bilateral airspace opac ities and interstitial thickening persists. Cardiomegaly is unchanged. There is no pneumothorax. IMPRESSION: 1. Satisfactory positioning of lines and tubes. 2. Persistent bilateral airspace opacities and interstitial thickening which favor an infectious proc ess. Pulmonary edema could appear similar but is considered less likely. 3. Small bilateral pleural effusions. ACT 112: Negative or not required by law. Electronically signed by: Farhan Tavarez M.D. 10/08/2020 9:18 AM
[2020-10-08] MEDS: CASPOFUNGIN 50 MG in SODIUM CHLORIDE 0.9% 250 ML IV SCH (11:56)
[2020-10-08] MEDS: LINEZOLID 600 MG/300 ML BAG IV SCH (12:22)
--- NOTE | 2020-10-08 12:31 | Critical Care Progress Note ---
Date of Service October 08, 2020 Assessment & Plan (1) Acute metabolic encephalopathy: Reason Critically Ill: 69-year-old male with acute hypoxic respiratory failure due to Covid 19 pneumonia, confusion and delirium. Needed to be intubated for agitation, encephalopathy and hypoxia on 09/25/2020 Neuro - ICU Delirium Fentanyl has been off since 10/06. Discontinued Precedex drip. Continue Lyrica 100 mg twice daily. He was weaned down 10/06. He was given 2.5 mg of Zyprexa 10/07; starting 5mg QHS He does have a history of alcohol abuse. Continue thiamine. Cardiac -intermittent atrial flutter. Currently on therapeutic dosing of Lovenox. Continue metoprolol 25 mg twice daily. Respiratory - Currently intubation day #12. Discussed with trial of extubation today He is being treated for MRSA pneumonia. Cefepime and caspofungin given ongoing fevers. Continue cefepime and caspofungin for total of 7 days. Convert remaining course of vancomycin to linezolid for for total of 7 days of linezolid itself He completed a course of Decadron for Covid pneumonia. GI - N.p.o. today hopefully speech and swallow evaluation tomorrow stress ulcer prophylaxis with Pepcid 20 mg twice a day can be discontinued. RENAL/LYTES - BUN is a bit elevated. Creatinine stable. Continue free water flushes through the NG tube. Monitor urine output. ENDO - No history of diabetes, ICU hyperglycemic protocol Hypothyroidcontinue Synthroid when able HEME - History of anemia, H&H currently stable at this time and no indication for transfusion. Monitor CBCs ID - Treatment as above. Cultures negative to date. -Patient should be able to be downgraded from Covid isolation soon and could facilitate bilateral ultrasound venous duplex -Initial Covid positivity date 09/14/20 --Prophylaxis VTE: Lovenox 100mg BID GI: Pepcid Lines: Right IJ 09/25, positive Rodriguez, intubated 09/25 -Discontinue right IJ -Discontinue Rodriguez to [place] catheter Diet: N.p.o. Discussed with bedside RN. I have personally spent additional 45 minutes of critical care time in the direct management of this patient. This is a life/limb threatening event. This includes time spent evaluating patient, direct bedside care, chart review, placing orders, interpretation of diagnostic studies, discussion with consultants, patient, and family members, as well as other required patient management activities. This time is exclusive of all separately billable procedures, and teaching time and separate from and in addition to any other critical care service time. (2) Acute on chronic diastolic CHF (congestive heart failure): (3) Pneumonia due to COVID-19 virus: (4) GUS on CPAP: (5) Palliative care encounter: (6) Hypotension (arterial): Admission and Anticipated Discharge Date Admission Date: September 22, 2020 Subjective No overnight events, has intermittently been following commands Review of Systems Review of Systems: Unobtainable due to endotracheal tube Physical Exam Physical Exam: General: Alert. nontoxic. Glascow Coma Scale: Eyes: 4, Verbal 1T, Motor 5, Total 10 T Skin: Warm, dry, Head: Atraumatic Ears, nose, mouth and throat: airway obscured by endotracheal tube Cardiovascular: Normal peripheral perfusion Respiratory: no respiratory distress Gastrointestinal: Non distended Musculoskeletal: No deformity Results & Data Results & Data ([facility]) Vital Signs (Past 12 Hours) Vital Signs Temp Pulse Pulse Resp BP BP BP 10/08/20 12:14 36.8 C 73 22 147/60 H 10/08/20 11:47 73 27 H 10/08/20 11:15 37.2 C 65 18 158/54 H 10/08/20 10:00 36.8 C 74 20 164/62 H 10/08/20 08:19 77 28 H 10/08/20 08:01 37.5 C 65 18 148/56 H 10/08/20 06:30 37.6 C H 73 10/08/20 06:15 37.6 C H 72 10/08/20 06:00 37.5 C 70 152/64 H 10/08/20 05:45 37.6 C H 68 10/08/20 05:30 37.6 C H 63 10/08/20 05:15 37.6 C H 68 10/08/20 05:00 37.6 C H 66 135/57 L 10/08/20 04:45 37.6 C H 62 10/08/20 04:30 37.6 C H 62 10/08/20 04:15 37.6 C H 61 10/08/20 04:00 37.6 C H 73 137/58 L 10/08/20 03:45 37.6 C H 64 10/08/20 03:30 37.6 C H 62 10/08/20 03:15 37.6 C H 62 10/08/20 03:00 37.6 C H 68 138/53 L 10/08/20 02:45 37.6 C H 67 10/08/20 02:30 37.6 C H 78 10/08/20 02:15 37.6 C H 69 10/08/20 02:06 71 26 H 10/08/20 02:00 37.6 C H 72 130/53 L 10/08/20 01:45 37.7 C H 67 10/08/20 01:30 37.8 C H 68 10/08/20 01:15 37.9 C H 70 10/08/20 01:00 38.0 C H 74 118/53 L 10/08/20 00:45 38.2 C H 76 Pulse Ox 10/08/20 12:14 94 10/08/20 11:47 95 10/08/20 11:15 95 10/08/20 10:00 94 10/08/20 08:19 94 10/08/20 08:01 94 10/08/20 06:30 96 10/08/20 06:15 94 10/08/20 06:00 94 10/08/20 05:45 93 10/08/20 05:30 94 10/08/20 05:15 92 10/08/20 05:00 93 10/08/20 04:45 93 10/08/20 04:30 94 10/08/20 04:15 92 10/08/20 04:00 93 10/08/20 03:45 93 10/08/20 03:30 94 10/08/20 03:15 94 10/08/20 03:00 94 10/08/20 02:45 94 10/08/20 02:30 94 10/08/20 02:15 93 10/08/20 02:06 95 10/08/20 02:00 93 10/08/20 01:45 92 10/08/20 01:30 92 10/08/20 01:15 92 10/08/20 01:00 93 10/08/20 00:45 93 Laboratory Results 01/04/21 01/04/21 01/04/21 Range/Units 10:54 05:27 05:27 WBC 9.34 (4.8-10.8) K/uL RBC 3.21 L (4.7-6.1) M/uL Hgb 9.3 L (14.0-18.0) g/dL Hct 28.4 L (42-52) % MCV 88.5 (80-100) fL MCH 29.0 (25-34) pg MCHC 32.7 (32-36) g/dL RDW Std Deviation 49.4 H (36.4-46.3) fL RDW Coeff of Bisi 15.2 H (11.5-14.5) % Plt Count 178 (130-400) K/uL MPV 11.8 H (7.4-10.4) fL Immature Gran % (Auto) 1.3 % Neut % (Auto) 69.7 % Lymph % (Auto) 17.7 % [place] % (Auto) 8.7 % Eos % (Auto) 2.2 % Baso % (Auto) 0.4 % Neut # (Auto) 6.51 H (1.4-6.5) K/uL Lymph # (Auto) 1.65 (1.2-3.4) K/uL [place] # (Auto) 0.81 H (0.11-0.59) K/uL Eos # (Auto) 0.21 (0-0.5) K/uL Baso # (Auto) 0.04 (0-0.2) K/uL Immature Gran # (Auto) 0.12 H (0.00-0.02) K/uL Sample Site POC pH (7.35-7.45) POC pCO2 (35-46) mmHg POC pO2 (80-95) mmHg POC HCO3 (19-24) robin/L POC Total CO2 (24-31) mmol/L POC Base Excess (-9-1.8) robin/L POC ABG O2 Sat (90-95) % Jean Claude Test O2 Delivery Device POC FiO2 % PEEP Sodium 142 (136-145) mmol/L Potassium 4.4 (3.5-5.1) mmol/L Chloride 116 H (98-107) mmol/L Carbon Dioxide 22 (21-32) mmol/L Anion Gap 4.0 (3-11) BUN 53 H (7-18) mg/dl Creatinine 1.08 (0.6-1.4) mg/dl Est Cr Clr Drug Dosing 76.5 ml/min Est GFR ( Amer) 79.6 Est GFR (Non-Af Amer) 68.7 BUN/Creatinine Ratio 49.2 H (10-20) Glucose 121 H (70-99) mg/dl POC Glucose 123 H (70-99) mg/dl Calcium 9.5 (8.5-10.1) mg/dl Phosphorus 2.9 (2.5-4.9) mg/dl Magnesium 2.1 (1.8-2.4) mg/dl 10/08/20 Range/Units 02:25 WBC (4.8-10.8) K/uL RBC (4.7-6.1) M/uL Hgb (14.0-18.0) g/dL Hct (42-52) % MCV (80-100) fL MCH (25-34) pg MCHC (32-36) g/dL RDW Std Deviation (36.4-46.3) fL RDW Coeff of Bisi (11.5-14.5) % Plt Count (130-400) K/uL MPV (7.4-10.4) fL Immature Gran % (Auto) % Neut % (Auto) % Lymph % (Auto) % [place] % (Auto) % Eos % (Auto) % Baso % (Auto) % Neut # (Auto) (1.4-6.5) K/uL Lymph # (Auto) (1.2-3.4) K/uL [place] # (Auto) (0.11-0.59) K/uL Eos # (Auto) (0-0.5) K/uL Baso # (Auto) (0-0.2) K/uL Immature Gran # (Auto) (0.00-0.02) K/uL Sample Site R Radial POC pH 7.34 L (7.35-7.45) POC pCO2 33 L (35-46) mmHg POC pO2 72 L (80-95) mmHg POC HCO3 18 L (19-24) robin/L POC Total CO2 19 L (24-31) mmol/L POC Base Excess -8.0 (-9-1.8) robin/L POC ABG O2 Sat 94.0 (90-95) % Jean [place] Test Pass O2 Delivery Device Ventilator POC FiO2 30 % PEEP 5 Sodium (136-145) mmol/L Potassium (3.5-5.1) mmol/L Chloride (98-107) mmol/L Carbon Dioxide (21-32) mmol/L Anion Gap (3-11) BUN (7-18) mg/dl Creatinine (0.6-1.4) mg/dl Est Cr Clr Drug Dosing ml/min Est GFR ( Amer) Est GFR (Non-Af Amer) BUN/Creatinine Ratio (10-20) Glucose (70-99) mg/dl POC Glucose (70-99) mg/dl Calcium (8.5-10.1) mg/dl Phosphorus (2.5-4.9) mg/dl Magnesium (1.8-2.4) mg/dl Coding Level of Care Code Critical Care 1st 30-74 mins Diagnoses Acute metabolic encephalopathy G93.41 Acute on chronic diastolic CHF (congestive heart failure) I50.33 Pneumonia due to COVID-19 virus U07.1; J12.89 GUS on CPAP G47.33; Z99.89 Palliative care encounter Z51.5 Hypotension (arterial) I95.9
[2020-10-08] MEDS: PEPTAMEN INTENSE VHP 1.0 CAL 1,000 ML BAG OG SCH (13:18)
[2020-10-08] MEDS: hydrALAZINE HCL 20 MG/ML VIAL IV PRN (18:42)
[2020-10-08] MEDS ORDERED: OLANZapine ZYDIS 5 MG ORALLY DIS. TAB PO SCH (21:00)
[2020-10-08] MEDS ORDERED: METOPROLOL TARTRATE 1 MG/ML VIAL IV STA (21:14)
[2020-10-08] MEDS ORDERED: dilTIAZem HCl 5 MG/ML 5 ML VIAL IV STA (22:12)
[2020-10-08] MEDS ORDERED: STAT IV Infusion **Titration per Protocol STA (22:12)
[2020-10-08] MEDS ORDERED: dilTIAZem HCl 5 MG/ML 5 ML VIAL IV ONE (22:18)
[2020-10-08] MEDS: dilTIAZem HCL 125 MG in DEXTROSE 5% 100 ML IV SCH (23:31)
[2020-10-08 23:36] LABS: BUN Creatinine Ratio 47.3 (10-20); Creatinine Clr Calc Pharmacy 73.1 ml/min; Est GFR (African American) 75.4; Phosphorus 2.4 mg/dl (2.5-4.9)
[2020-10-09] MEDS: LINEZOLID 600 MG/300 ML BAG IV SCH ×2 (02:27→11:44)
[2020-10-09] MEDS: DEXMEDETOMIDINE HCL 400 MCG in 0.9 % SODIUM CHLORIDE 96 ML IV SCH (03:41)
[2020-10-09] MEDS: TUBE FEEDING WATER FLUSH GT SCH (03:41)
[2020-10-09] MEDS: CEFEPIME 2,000 MG in SYRINGE 0 ML IV SCH ×3 (05:49→20:18)
[2020-10-09] MEDS: LEVOTHYROXINE SODIUM 25 MCG TABLET PO SCH (06:22)
[2020-10-09] MEDS: METOPROLOL TARTRATE 1 MG/ML VIAL IV SCH ×3 (06:39→17:34)
[2020-10-09 06:57] LABS: Hematocrit (blood only) 32.1 % (42-52); Hemoglobin 10.6 g/dL (14.0-18.0); Mean Corpuscular Hemoglobin 28.7 pg (25-34); Mean Platelet Volume 11.8 fL (7.4-10.4); Platelet Count 261 K/uL (130-400); RDW Coefficient of Variation 15.5 % (11.5-14.5); RDW Standard Deviation 49.3 fL (36.4-46.3); Red Blood Count 3.69 M/uL (4.7-6.1); White Blood Count 14.04 K/uL (4.8-10.8)
[2020-10-09 07:30] LABS: BUN Creatinine Ratio 40.8 (10-20); Basophils # (auto) 0.08 K/uL (0-0.2); Basophils % (auto) 0.6 %; Calcium 9.8 mg/dl (8.5-10.1); Creatinine Clr Calc Pharmacy 66.5 ml/min; Eosinophils # (auto) 0.14 K/uL (0-0.5); Est GFR (African American) 68.7; Est GFR (Non-African American) 59.3; Immature Granulocytes # (auto) 0.29 K/uL (0.00-0.02); Immature Granulocytes % (auto) 2.1 %; Lymphocytes # (auto) 1.65 K/uL (1.2-3.4); Lymphocytes % (auto) 11.8 %; Magnesium 2.3 mg/dl (1.8-2.4); Monocytes # (auto) 1.26 K/uL (0.11-0.59); Neutrophils # (auto) 10.62 K/uL (1.4-6.5); Neutrophils % (auto) 75.5 %; Potassium 3.9 mmol/L (3.5-5.1)
[2020-10-09 07:31] LABS: Phosphorus 2.6 mg/dl (2.5-4.9)
[2020-10-09] MEDS: POLYETHYLENE (MIRALAX) 17 GM PACK PO SCH (07:35)
[2020-10-09] MEDS: DOCUSATE SODIUM SYRUP 100 MG/10 ML UDC PO SCH (07:35)
[2020-10-09] MEDS: SENNOSIDES 8.8 MG/5 ML UDC PO SCH (07:36)
[2020-10-09] MEDS ORDERED: ALBUT/IPRATROP 3MG/0.5MG NEB 3 ML VIAL NEB PRN (07:40)
[2020-10-09] MEDS: PREGABALIN 100 MG CAP PO SCH ×2 (07:41→07:45)
[2020-10-09] MEDS: ALBUT/IPRATROP 3MG/0.5MG NEB 3 ML VIAL NEB SCH (07:41)
[2020-10-09] MEDS: allopurinoL 100 MG TAB PO SCH ×2 (07:41→07:45)
[2020-10-09] MEDS: MULTI VIT W/MINERALS LIQUID 15 ML UDP PO SCH (07:41)
[2020-10-09] MEDS: THIAMINE HCL 100 MG TAB NG SCH ×2 (07:41→07:45)
--- NOTE | 2020-10-09 07:43 | Critical Care Progress Note ---
Date of Service October 09, 2020 Assessment & Plan (1) Acute metabolic encephalopathy: 69-year-old male with acute hypoxic respiratory failure due to Covid 19 pneumonia, confusion and delirium. Needed to be intubated for agitation, encephalopathy and hypoxia on 09/25/2020 Neuro - ICU Delirium He was given 2.5 mg of Zyprexa 10/07; starting 5mg QHS He does have a history of alcohol abuse. Continue thiamine. Cardiac -intermittent atrial flutter. Currently on therapeutic dosing of Loveno x. -Increase metoprolol 50 mg twice daily. Respiratory - Extubated 10/09 after 12 days intubation He is being treated for MRSA pneumonia. Cefepime and caspofungin given ongoing fevers. Continue cefepime and caspofungin for total of 7 days. Convert remaining course of vancomycin to linezolid for for total of 7 days of linezolid itself He completed a course of Decadron for Covid pneumonia. GI - N.p.o.` -Speech unable to assess on 10/09 they will reattempt 10/10 10/11 If unable to participate would strongly consider initiating course safe tube feedings nasally RENAL/LYTES - Supplemental fluids starting today -Normosol 80 mils per hour ENDO - No history of diabetes, ICU hyperglycemic protocol Hypothyroidcontinue Synthroid when able HEME - History of anemia, H&H currently stable at this time and no indication for transfusion. Monitor CBCs ID - Treatment as above. Cultures negative to date. -Initial Covid positivity date 09/14/20 -Discontinue all lines: Central line A-line Rodriguez catheter --Prophylaxis VTE: Lovenox 100mg BID Patient stable for downgrade out of ICU (2) Acute on chronic diastolic CHF (congestive heart failure): (3) Pneumonia due to COVID-19 virus: (4) GUS on CPAP: (5) Palliative care encounter: (6) Hypotension (arterial): Admission and Anticipated Discharge Date Admission Date: September 22, 2020 Subjective No overnight events, still disoriented and showing signs of ICU delirium ed gnizes self Review of Systems Review of Systems: Unobtainable due to reduced consciousness Physical Exam Physical Exam: General: Alert. nontoxic. Glascow Coma Scale: Eyes: 4, Verbal 3, Motor 5, Total 13 Skin: Warm, dry, Head: Atraumatic Ears, nose, mouth and throat: airway patent with wet cough Cardiovascular: Normal peripheral perfusion Respiratory: no respiratory distress Gastrointestinal: Non distended Musculoskeletal: No deformity Results & Data Results & Data ([facility]) Vital Signs (Past 12 Hours) Vital Signs Temp Pulse Pulse Resp BP Pulse Ox 10/09/20 06:39 94 H 156/58 H 10/09/20 00:00 113 H 10/08/20 23:30 109 H 144/79 H 94 10/08/20 23:21 103 H 20 97 10/08/20 23:00 112 H 165/96 H 95 10/08/20 22:21 122 H 165/84 H 91 10/08/20 22:00 112 H 165/86 H 93 10/08/20 21:20 122 H 170/74 H 10/08/20 21:00 37.3 C 122 H 170/74 H 76 L 10/08/20 20:11 126 H 167/104 H 10/08/20 20:09 169/83 H 93 Laboratory Results 10/09/20 10/09/20 10/08/20 Range/Units 05:47 05:47 22:15 WBC 14.04 H (4.8-10.8) K/uL RBC 3.69 L (4.7-6.1) M/uL Hgb 10.6 L (14.0-18.0) g/dL Hct 32.1 L (42-52) % MCV 87.0 (80-100) fL MCH 28.7 (25-34) pg MCHC 33.0 (32-36) g/dL RDW Std Deviation 49.3 H (36.4-46.3) fL RDW Coeff of Bisi 15.5 H (11.5-14.5) % Plt Count 261 (130-400) K/uL MPV 11.8 H (7.4-10.4) fL Immature Gran % (Auto) 2.1 % Neut % (Auto) 75.5 % Lymph % (Auto) 11.8 % [place] % (Auto) 9.0 % Eos % (Auto) 1.0 % Baso % (Auto) 0.6 % Neut # (Auto) 10.62 H (1.4-6.5) K/uL Lymph # (Auto) 1.65 (1.2-3.4) K/uL [place] # (Auto) 1.26 H (0.11-0.59) K/uL Eos # (Auto) 0.14 (0-0.5) K/uL Baso # (Auto) 0.08 (0-0.2) K/uL Immature Gran # (Auto) 0.29 H (0.00-0.02) K/uL Sodium 140 142 (136-145) mmol/L Potassium 3.9 4.0 (3.5-5.1) mmol/L Chloride 115 H 116 H (98-107) mmol/L Carbon Dioxide 20 L 18 L (21-32) mmol/L Anion Gap 5.0 8.0 (3-11) BUN 50 H 54 H (7-18) mg/dl Creatinine 1.22 1.13 (0.6-1.4) mg/dl Est Cr Clr Drug Dosing 66.5 73.1 ml/min Est GFR ( Amer) 68.7 75.4 Est GFR (Non-Af Amer) 59.3 65.0 BUN/Creatinine Ratio 40.8 H 47.3 H (10-20) Glucose 104 H 99 (70-99) mg/dl POC Glucose (70-99) mg/dl Calcium 9.8 10.0 (8.5-10.1) mg/dl Phosphorus 2.6 2.4 L (2.5-4.9) mg/dl Magnesium 2.3 2.0 (1.8-2.4) mg/dl 10/08/20 10/08/20 Range/Units 17:59 17:13 WBC (4.8-10.8) K/uL RBC (4.7-6.1) M/uL Hgb (14.0-18.0) g/dL Hct (42-52) % MCV (80-100) fL MCH (25-34) pg MCHC (32-36) g/dL RDW Std Deviation (36.4-46.3) fL RDW Coeff of Bisi (11.5-14.5) % Plt Count (130-400) K/uL MPV (7.4-10.4) fL Immature Gran % (Auto) % Neut % (Auto) % Lymph % (Auto) % [place] % (Auto) % Eos % (Auto) % Baso % (Auto) % Neut # (Auto) (1.4-6.5) K/uL Lymph # (Auto) (1.2-3.4) K/uL [place] # (Auto) (0.11-0.59) K/uL Eos # (Auto) (0-0.5) K/uL Baso # (Auto) (0-0.2) K/uL Immature Gran # (Auto) (0.00-0.02) K/uL Sodium (136-145) mmol/L Potassium (3.5-5.1) mmol/L Chloride (98-107) mmol/L Carbon Dioxide (21-32) mmol/L Anion Gap (3-11) BUN (7-18) mg/dl Creatinine (0.6-1.4) mg/dl Est Cr Clr Drug Dosing ml/min Est GFR ( Amer) Est GFR (Non-Af Amer) BUN/Creatinine Ratio (10-20) Glucose (70-99) mg/dl POC Glucose 74 76 (70-99) mg/dl Calcium (8.5-10.1) mg/dl Phosphorus (2.5-4.9) mg/dl Magnesium (1.8-2.4) mg/dl Coding Level of Care Code 76350 Subseq Hosp Care Lvl 3 Diagnoses Acute metabolic encephalopathy G93.41 Acute on chronic diastolic CHF (congestive heart failure) I50.33 Pneumonia due to COVID-19 virus U07.1; J12.89 GUS on CPAP G47.33; Z99.89 Palliative care encounter Z51.5 Hypotension (arterial) I95.9
--- NOTE | 2020-10-09 10:36 | Hospitalist Progress Note ---
Date of Service October 09, 2020 Assessment & Plan (1) Pneumonia due to COVID-19 virus: -Dexamethasone 6mg IV daily, stopped by pulmonary med no Remdesivir or plasma as he presented 9 days into illness -Albuterol HFA PRN with acute hypoxic respiratory failure treated with BIPAP, tolerated well initially 09/25: intubated and ventilated ID consult 10/02/30 Recommendations: - Recommend stopping Ceftriaxone IV. - Recommend continuing Vancomycin IV for 10 - 14 days. Bacterial superinfection after COVID infection has been well documented Now on Caspofungin, Cefepime and Linezolid extubated on 10/08, breathing well on 3L, wet cough and rattles in throat but clearing his airway downgrade to [place], vitals stable pull central line (2) Acute respiratory failure with hypoxia: Secondary to Covid-19 PNA, stable with BIPAP on 09/24 however, he deteriorated, required intubation on 09/25 on 10/08 he was on minimal vent settings but was still delirious he was successfully extubated, breathing on 3L NC, but still very disoriented continues to be stable, no respiratory distress, downgrade from ICU today to [place] can be off isolation as positive test was 09/14 speech therapy: since he was intubated > 72 hours he would need a video swallow too confused today, will attempt tomorrow if he can follow directions (3) Acute metabolic encephalopathy: has a history of delirium when hospitalized at baseline he drinks at least 3 beers a day. antibiotics -- Linezolid and Cefepime plus caspofungin Zyprexa was tried, now stopped propofol stopped, Precedex now off with being extubated Lyrica 100mg BID but cannot give as he is NPO hopeful that extubation and stopping all sedation will improve mental status (4) Acute kidney injury: resolved Cr down to baseline, electrolytes stable making adequate urine, use Lasix PRN for negative fluid balance (5) Acute on chronic diastolic CHF (congestive heart failure): related to aortic stenosis appears euvolemic, use Lasix PRN for negative fluid balance (6) Hyponatremia: was probably related to CHF - corrected after diuresis. follow periodically (7) Vitamin D deficiency: -Continue supplementation (8) Restrictive lung disease: fortunately no hypercapnea on ABG (9) GUS on CPAP: Chronic -again fortunately no hypercapnea (10) Gout: Chronic. Stable. 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 continue metoprolol and follow (13) Hypothyroidism: Chronic. Stable. Last TSH in 10/24 = 3.95 -Continue Synthroid 25mcg po daily (14) Opioid dependence: Patient with chronic pain and neuropathy -Continue Lyrica 100mg po BID (15) Acid reflux: Chronic. Stable -Pepcid 20mg IV BID - may have effect on disease severity in Covid-19 (16) DVT prophylaxis: lovenox, therapeutic dosing (17) Atrial flutter: intermittent, use Amiodarone if needed, metoprolol bid 25 (18) MRSA (methicillin resistant staphylococcus aureus) pneumonia: MRSA nasal swab positive vancomycin for antibiotic coverage (19) Swelling of left hand: mild erythema, swelling, tender doubt cellulitis as he is on broad spectrum antibiotics could be related to left UE line, will pull central access, place peripheral sites Admission and Anticipated Discharge Date Admission Date: September 22, 2020 Subjective patient alert, responsive but words do not make sense can be a little abrasive but likely just frustrated that he cannot communicate clearly examined left hand, it is swollen, warm and tender based on his response is on broad spectrum antibiotics so would doubt cellulitis, could be related to left UE PICC breathing well on 3L, saturations high 90's, no distress cannot complete ROS due to confusion labs shows WBC 14, Hb 10, Na 140, Cr 1.22, phos and mag normal Review of Systems Review of Systems: Unobtainable due to cognitive status (confused, disoriented) Physical Exam Constitutional: well developed and + morbidly obese; no acute distress Neck: trachea midline and + thick neck Respiratory: + cough; no respiratory distress and no labored breathing Auscultation: + rhonchi Cardiovascular: Rate/Rhythm: regular rate and regular rhythm Heart Sounds: normal S1 and normal S2; no murmur Extremities: normal capillary refill; no edema Gastrointestinal (Abdomen): normal bowel sounds, soft, nontender, no hepatosplenomegaly Musculoskeletal: no cyanosis or clubbing, extremities motor strength 5/5 Skin: + erythema (left hand, swollen, tender) Neurologic: CN's II-XI intact bilaterally, awake and + confused; no focal motor deficits Speech / Cognition: + receptive aphasia (word salad, inappropriate words but words are clear) Psychiatric: Orientation: alert; + not oriented x 3 Lymphatic: no cervical or axillary lymphadenopathy Results & Data Results & Data ([facility]) Vital Signs (Past 12 Hours) Vital Signs Temp Pulse Pulse Resp BP BP Pulse Ox 10/09/20 08:00 37.2 C 89 20 150/71 H 96 10/09/20 06:39 94 H 156/58 H 10/09/20 00:00 113 H 10/08/20 23:30 109 H 144/79 H 94 10/08/20 23:21 103 H 20 97 10/08/20 23:00 112 H 165/96 H 95 Laboratory Results Laboratory Results - last 24 hr 10/08/20 10/08/20 10/08/20 10:54 17:13 17:59 WBC RBC Hgb Hct MCV MCH MCHC RDW Std Deviation RDW Coeff of Bisi Plt Count MPV Immature Gran % (Auto) Neut % (Auto) Lymph % (Auto) [place] % (Auto) Eos % (Auto) Baso % (Auto) Neut # (Auto) Lymph # (Auto) [place] # (Auto) Eos # (Auto) Baso # (Auto) Immature Gran # (Auto) Sodium Potassium Chloride Carbon Dioxide Anion Gap BUN Creatinine Est Cr Clr Drug Dosing Est GFR ( Amer) Est GFR (Non-Af Amer) BUN/Creatinine Ratio Glucose POC Glucose 123 H 76 74 Calcium Phosphorus Magnesium 10/08/20 10/09/20 10/09/20 22:15 05:47 05:47 WBC 14.04 H RBC 3.69 L Hgb 10.6 L Hct 32.1 L MCV 87.0 MCH 28.7 MCHC 33.0 RDW Std Deviation 49.3 H RDW Coeff of Bisi 15.5 H Plt Count 261 MPV 11.8 H Immature Gran % (Auto) 2.1 Neut % (Auto) 75.5 Lymph % (Auto) 11.8 [place] % (Auto) 9.0 Eos % (Auto) 1.0 Baso % (Auto) 0.6 Neut # (Auto) 10.62 H Lymph # (Auto) 1.65 [place] # (Auto) 1.26 H Eos # (Auto) 0.14 Baso # (Auto) 0.08 Immature Gran # (Auto) 0.29 H Sodium 142 140 Potassium 4.0 3.9 Chloride 116 H 115 H Carbon Dioxide 18 L 20 L Anion Gap 8.0 5.0 BUN 54 H 50 H Creatinine 1.13 1.22 Est Cr Clr Drug Dosing 73.1 66.5 Est GFR ( Amer) 75.4 68.7 Est GFR (Non-Af Amer) 65.0 59.3 BUN/Creatinine Ratio 47.3 H 40.8 H Glucose 99 104 H POC Glucose Calcium 10.0 9.8 Phosphorus 2.4 L 2.6 Magnesium 2.0 2.3 Medications Administered Current Inpatient Medications Acetaminophen (Acetaminophen Susp 325 Mg/10.15 Ml Udc) 650 mg PO Q6H PRN PRN Reason: Fever Stop: 10/31/20 17:38 Last Admin: 10/07/20 13:16 Dose: 650 mg Documented by: Albuterol (Albuterol Hfa 8 Gm Inhaler) 2 puffs INH Q4H PRN PRN Reason: Shortness Of Breath Stop: 10/22/20 01:56 Albuterol (Albut/Ipratrop 3mg/0.5mg Neb 3 Ml Vial) 3 ml NEB Q4 PRN PRN Reason: Shortness Of Breath Or Wheezing Stop: 11/08/20 07:37 Allopurinol (Allopurinol 100 Mg Tab) 100 mg PO DAILY [facility] Stop: 10/25/20 17:44 Last Admin: 10/09/20 07:45 Dose: Not Given Documented by: Docusate Sodium (Docusate Sodium Syrup 100 Mg/10 Ml Udc) 100 mg PO QAM [facility] Stop: 10/26/20 10:59 Last Admin: 10/09/20 07:35 Dose: Not Given Documented by: Enoxaparin Sodium (Enoxaparin 100 Mg/1ml Syr) 100 mg SQ Q12H [facility] Stop: 11/02/20 11:59 Last Admin: 10/08/20 23:33 Dose: 100 mg Documented by: Heparin Sodium (Beef Lung) (Heparin 10 Unit/Ml 5 Ml Flush) 5 ml FLUSH PRN PRN PRN Reason: Flush Stop: 10/25/20 22:45 Last Admin: 10/06/20 03:29 Dose: 5 ml Documented by: Hydralazine HCl (Hydralazine Hcl 20 Mg/Ml Vial) 10 mg IV Q6 PRN PRN Reason: Hypertension Stop: 10/24/20 18:54 Last Admin: 10/08/20 18:42 Dose: 10 mg Documented by: Caspofungin 50 mg/ Sodium (Chloride) 260 mls @ 260 mls/hr IV Q24H [facility] Stop: 10/09/20 12:59 Last Infusion: 10/08/20 12:57 Dose: Infused Documented by: Cefepime HCl 2,000 mg/ Syringe 20 mls @ 5 mls/min IV Q8H [facility] Stop: 10/10/20 19:59 Last Admin: 10/09/20 05:49 Dose: 5 mls/min Documented by: Linezolid (Zyvox) 600 mg in 300 mls @ 200 mls/hr IV Q12H [facility] Stop: 10/15/20 01:29 Last Infusion: 10/09/20 06:21 Dose: Infused Documented by: Diltiazem HCl 125 mg/ Dextrose 125 mls @ 0 mls/hr IV .Q0M [facility]; Protocol Stop: 11/07/20 22:14 Last Titration: 10/09/20 06:50 Dose: 0 mg/hr, 0 mls/hr Documented by: Levothyroxine Sodium (Levothyroxine Sodium 25 Mcg Tablet) 25 mcg PO DAILYBB [facility] Stop: 10/28/20 06:29 Last Admin: 10/09/20 06:22 Dose: Not Given Documented by: Metoprolol Tartrate (Metoprolol Tartrate 25 Mg Tab) 25 mg PO BID [facility] Stop: 10/27/20 08:59 Last Admin: 10/08/20 23:33 Dose: Not Given Documented by: Metoprolol Tartrate (Metoprolol Tartrate 1 Mg/Ml Vial) 5 mg IV Q6 [facility] Stop: 11/08/20 05:59 Last Admin: 10/09/20 06:39 Dose: 5 mg Documented by: Multivitamins/Minerals (Multi Vit W/Minerals Liquid 15 Ml Udp) 15 ml PO QAM [facility] Stop: 10/28/20 08:59 Last Admin: 10/09/20 07:41 Dose: Not Given Documented by: Olanzapine (Olanzapine Zydis 5 Mg Orally Dis. Tab) 5 mg PO HS [facility] Stop: 02/03/21 20:59 Last Admin: 10/08/20 23:33 Dose: Not Given Documented by: Polyethylene Glycol (Polyethylene (Miralax) 17 Gm Pack) 17 gm PO DAILY MATHIEU Stop: 10/31/20 10:44 Last Admin: 10/09/20 07:35 Dose: Not Given Documented by: Pregabalin (Pregabalin 100 Mg Cap) 100 mg PO BID MATHIEU Stop: 11/05/20 20:59 Last Admin: 10/09/20 07:45 Dose: Not Given Documented by: Sennosides (Sennosides 8.8 Mg/5 Ml Udc) 8.8 mg PO QAM MATHIEU Stop: 10/26/20 10:59 Last Admin: 10/09/20 07:36 Dose: Not Given Documented by: Thiamine HCl (Thiamine Hcl 100 Mg Tab) 100 mg NG DAILY MATHIEU Stop: 11/02/20 08:59 Last Admin: 10/09/20 07:45 Dose: Not Given Documented by: PG Care Time/CCT Total # of Minutes Spent Total Time Spent with Patient: Total time spent is greater than 50% in coordination of care (as documented) at patient's floor/unit and/or counseling patient: Coding Level of Care Code 32103 Subseq Hosp Care Lvl 3 Diagnoses Pneumonia due to COVID-19 virus U07.1; J12.89 Acute respiratory failure with hypoxia J96.01 Acute metabolic encephalopathy G93.41 Acute kidney injury N17.9 Acute on chronic diastolic CHF (congestive heart failure) I50.33 Hyponatremia E87.1 Vitamin D deficiency E55.9 Restrictive lung disease J98.4 GUS on CPAP G47.33; Z99.89 Gout M10.9 Chronicity: unspecified Gout etiology: unspecified cause Gout site: unspecified site BPH with obstruction/lower urinary tract symptoms N40.1; N13.8 Hypertension I10 Hypertension type: essential hypertension Hypothyroidism E03.9 Hypothyroidism type: unspecified Opioid dependence F11.20 Substance use status: uncomplicated Acid reflux K21.9 Esophagitis presence: esophagitis presence not specified DVT prophylaxis Z29.9 Atrial flutter I48.92 MRSA (methicillin resistant staphylococcus aureus) pneumonia J15.212 Swelling of left hand M79.89 (1) Opioid dependence Substance use status: uncomplicated Qualified Code(s): F11.20 - Opioid dependence, uncomplicated (2) Gout Chronicity: unspecified Gout etiology: unspecified cause Gout site: unspecified site Qualified Code(s): M10.9 - Gout, unspecified (3) Hypothyroidism Hypothyroidism type: unspecified Qualified Code(s): E03.9 - Hypothyroidism, unspecified (4) Acid reflux Esophagitis presence: esophagitis presence not specified Qualified Code(s): K21.9 - Gastro-esophageal reflux disease without esophagitis (5) Hypertension Hypertension type: essential hypertension Qualified Code(s): I10 - Essential (primary) hypertension
[2020-10-09] MEDS: dilTIAZem HCL 125 MG in DEXTROSE 5% 100 ML IV SCH (10:58)
[2020-10-09] MEDS: CASPOFUNGIN 50 MG in SODIUM CHLORIDE 0.9% 250 ML IV SCH (11:34)
[2020-10-09] MEDS: ENOXAPARIN 100 MG/1ML SYR SQ SCH (11:35)
--- NOTE | 2020-10-09 12:30 | Electrocardiogram Report ---
Test Reason : Blood Pressure : / mmHG Vent. Rate : 116 BPM Atrial Rate : 116 BPM P-R Int : 180 ms QRS Dur : 120 ms QT Int : 358 ms P-R-T Axes : 049 020 026 degrees QTc Int : 497 ms Sinus tachycardia with frequent , and consecutive Premature ventricular complexes Possible Left atrial enlargement Right bundle branch block Abnormal ECG When compared with ECG of 07-OCT-2020 10:14, MO interval has decreased Vent. rate has increased BY [address] now depressed in Anterior leads Confirmed by Arnel Del Valle ([id number]) on 10/09/2020 12:30:32 PM Referred By: REFERRED SELF Confirmed By:Arnel Del Valle
[2020-10-09] MEDS ORDERED: ONDANSETRON INJ 2 MG/ML 2 ML VIAL IV PRN (14:09)
[2020-10-09] MEDS: NORMOSOL-R 1,000 ML IV SCH (14:29)
[2020-10-10] MEDS: NORMOSOL-R 1,000 ML IV SCH ×3 (00:40→22:56)
[2020-10-10] MEDS: ENOXAPARIN 100 MG/1ML SYR SQ SCH ×2 (01:02→11:47)
[2020-10-10] MEDS: METOPROLOL TARTRATE 1 MG/ML VIAL IV SCH ×4 (01:03→19:26)
[2020-10-10] MEDS: LINEZOLID 600 MG/300 ML BAG IV SCH ×2 (01:03→12:09)
[2020-10-10] MEDS: CEFEPIME 2,000 MG in SYRINGE 0 ML IV SCH ×2 (04:34→12:08)
[2020-10-10 05:20] LABS: Hematocrit (blood only) 32.3 % (42-52); Hemoglobin 10.4 g/dL (14.0-18.0); Mean Corpuscular Hemoglobin 28.3 pg (25-34); Mean Corpuscular Hgb Conc 32.2 g/dL (32-36); Platelet Count 223 K/uL (130-400); RDW Coefficient of Variation 15.7 % (11.5-14.5); RDW Standard Deviation 50.3 fL (36.4-46.3); Red Blood Count 3.67 M/uL (4.7-6.1)
[2020-10-10 05:55] LABS: Basophils # (auto) 0.06 K/uL (0-0.2); Basophils % (auto) 0.5 %; Eosinophils % (auto) 1.6 %; Immature Granulocytes # (auto) 0.23 K/uL (0.00-0.02); Immature Granulocytes % (auto) 1.8 %; Lymphocytes # (auto) 1.72 K/uL (1.2-3.4); Lymphocytes % (auto) 13.3 %; Monocytes # (auto) 1.28 K/uL (0.11-0.59); Monocytes % (auto) 9.9 %; Neutrophils # (auto) 9.41 K/uL (1.4-6.5); Neutrophils % (auto) 72.9 %; RBC Morphology Unremarkable
[2020-10-10 06:05] LABS: BUN Creatinine Ratio 35.2 (10-20); Calcium 9.5 mg/dl (8.5-10.1); Est GFR (African American) 61.9; Est GFR (Non-African American) 53.4; Magnesium 2.3 mg/dl (1.8-2.4); Potassium 3.5 mmol/L (3.5-5.1)
[2020-10-10 06:06] LABS: Phosphorus 2.5 mg/dl (2.5-4.9)
--- NOTE | 2020-10-10 06:57 | Ultrasound Report ---
US venous doppler UE LT CLINICAL HISTORY: left hand/arm swelling COMPARISON STUDY: No previous studies for comparison. FINDINGS: No intraluminal thrombus was visualized. The internal jugular, subclavian, axillary, cephal ic, brachial, basilic, radial, and ulnar veins were patent. The study was limited from a technical st andpoint. Examination was performed in a portable fashion, and the patient was confused and unable to cooperate. IMPRESSION: No evidence of left upper extremity DVT. ACT 112: Negative or not required by law. Electronically signed by: Mason Ariza M.D. 10/10/2020 6:55 AM
--- NOTE | 2020-10-10 07:31 | Hospitalist Progress Note ---
Date of Service October 10, 2020 Assessment & Plan (1) Airway problem: acute hypoxic episode this morning, emergent bronchoscopy by Dr. 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 Buck recommends intubation with tracheostomy discussed with his , she understands situation, agrees with tracheostomy if needed (2) Pneumonia due to COVID-19 virus: -Dexamethasone 6mg IV daily, stopped by pulmonary med no Remdesivir or plasma as he presented 9 days into illness -Albuterol HFA PRN with acute hypoxic respiratory failure treated with BIPAP, tolerated well initially 09/25: intubated and ventilated ID consult 10/02/30 Recommendations: - Recommend stopping Ceftriaxone IV. - Recommend continuing Vancomycin IV for 10 - 14 days. Bacterial superinfection after COVID infection has been well documented Now on Caspofungin, Cefepime and Linezolid extubated on 10/08, breathing well on 6L mask, wet cough and rattles in throat but clearing his airway downgrade to Cono-C, vitals stable pull central line on 10/09 (3) Acute respiratory failure with hypoxia: Secondary to Covid-19 PNA, stable with BIPAP on 09/24 however, he deteriorated, required intubation on 09/25 on 10/08 he was on minimal vent settings but was still delirious he was successfully extubated, breathing on 3L NC, but still very disoriented today had respiratory distress but that was due to upper airway swelling he is on 6L oxymask at this time, saturations have been high 90's all day speech therapy: since he was intubated > 72 hours he would need a video swallow too confused today Coresafe placed for nutrition (4) Acute metabolic encephalopathy: has a history of delirium when hospitalized at baseline he drinks at least 3 beers a day. antibiotics -- Linezolid and Cefepime plus caspofungin Zyprexa was tried, now stopped propofol stopped, Precedex now off with being extubated Lyrica 100mg BID but cannot give as he is NPO hopeful that extubation and stopping all sedation will improve mental status Coresafe placed, will add back Lyrica if it can go down tube (5) Acute kidney injury: resolved Cr down to baseline, electrolytes stable making adequate urine, Lasix given today (6) Acute on chronic diastolic CHF (congestive heart failure): related to aortic stenosis Lasix today (7) Hyponatremia: was probably related to CHF - corrected after diuresis. follow periodically (8) Vitamin D deficiency: -Continue supplementation (9) Restrictive lung disease: fortunately no hypercapnea on ABG (10) GUS on CPAP: Chronic -again fortunately no hypercapnea (11) Gout: Chronic. Stable. 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 continue metoprolol and follow (14) Hypothyroidism: Chronic. Stable. Last TSH in 10/24 = 3.95 -Continue Synthroid 25mcg po daily (15) Opioid dependence: Patient with chronic pain and neuropathy -Continue Lyrica 100mg po BID (16) Acid reflux: Chronic. Stable -Pepcid 20mg IV BID - may have effect on disease severity in Covid-19 (17) DVT prophylaxis: lovenox, therapeutic dosing (18) Atrial flutter: intermittent, use Amiodarone if needed, metoprolol bid 25 (19) MRSA (methicillin resistant staphylococcus aureus) pneumonia: MRSA nasal swab positive vancomycin for antibiotic coverage (20) Swelling of left hand: mild erythema, swelling, tender doubt cellulitis as he is on broad spectrum antibiotics could be related to left UE line, will pull central access, place peripheral sites doppler of left arm NEGATIVE for DVT Admission and Anticipated Discharge Date Admission Date: September 22, 2020 Subjective patient with sudden desaturation this morning, into 60's emergent bronchoscopy with suctioning, has a lot of edema and swelling given Lasix and Decadron and racemic epinephrine and saturations improved after bronchoscopy still very confused will try to place Coresafe to at least feed him and give enteral medications d/w Dr. Buck updated his over the phone if he deteriorates again he would need intubated and tracheostomy as his issue is all upper airway swelling labs show WBC 12, Hb 10, Cr 1.33, K 3.5 Review of Systems Review of Systems: Unobtainable due to cognitive status (confused) Physical Exam Constitutional: well developed and + morbidly obese; no acute distress Neck: trachea midline and + thick neck Respiratory: + cough; no respiratory distress and no labored breathing Auscultation: + rhonchi Cardiovascular: Rate/Rhythm: regular rate and regular rhythm Heart Sounds: normal S1 and normal S2; no murmur Extremities: normal capillary refill; no edema Gastrointestinal (Abdomen): normal bowel sounds, soft, nontender, no hepatosplenomegaly Musculoskeletal: no cyanosis or clubbing, extremities motor strength 5/5 Skin: no rashes, warm and dry + erythema (left hand, swollen, tender) Neurologic: CN's II-XI intact bilaterally, awake and + confused; no focal motor deficits Speech / Cognition: + receptive aphasia (word salad, inappropriate words but words are clear) Psychiatric: Orientation: alert; + not oriented x 3 Lymphatic: no cervical or axillary lymphadenopathy Results & Data Results & Data ([facility]) Vital Signs (Past 12 Hours) Vital Signs Temp Pulse Pulse Resp BP BP BP 10/10/20 06:51 107 H 143/67 H 10/10/20 04:00 37.0 C 92 H 24 143/67 H 10/10/20 01:03 106 H 166/87 H 10/10/20 00:00 116 H 10/09/20 23:29 36.7 C 118 H 20 166/87 H Pulse Ox 10/10/20 06:51 10/10/20 04:00 94 10/10/20 01:03 10/10/20 00:00 10/09/20 23:29 93 Laboratory Results Laboratory Results - last 24 hr 10/09/20 10/09/20 10/09/20 05:47 05:47 12:05 WBC RBC Hgb Hct MCV MCH MCHC RDW Std Deviation RDW Coeff of Bisi Plt Count MPV Immature Gran % (Auto) 2.1 Neut % (Auto) 75.5 Lymph % (Auto) 11.8 [place] % (Auto) 9.0 Eos % (Auto) 1.0 Baso % (Auto) 0.6 Neut # (Auto) 10.62 H Lymph # (Auto) 1.65 [place] # (Auto) 1.26 H Eos # (Auto) 0.14 Baso # (Auto) 0.08 Immature Gran # (Auto) 0.29 H RBC Morphology Sodium 140 Potassium 3.9 Chloride 115 H Carbon Dioxide 20 L Anion Gap 5.0 BUN 50 H Creatinine 1.22 Est Cr Clr Drug Dosing 66.5 Est GFR ( Amer) 68.7 Est GFR (Non-Af Amer) 59.3 BUN/Creatinine Ratio 40.8 H Glucose 104 H POC Glucose Calcium 9.8 Phosphorus 2.6 Magnesium 2.3 Stl C. diff Tox B Gene Negative Cdiff Gene 10/09/20 10/10/20 10/10/20 23:47 04:55 04:55 WBC 12.90 H RBC 3.67 L Hgb 10.4 L Hct 32.3 L MCV 88.0 MCH 28.3 MCHC 32.2 RDW Std Deviation 50.3 H RDW Coeff of Bisi 15.7 H Plt Count 223 MPV 11.0 H Immature Gran % (Auto) 1.8 Neut % (Auto) 72.9 Lymph % (Auto) 13.3 [place] % (Auto) 9.9 Eos % (Auto) 1.6 Baso % (Auto) 0.5 Neut # (Auto) 9.41 H Lymph # (Auto) 1.72 [place] # (Auto) 1.28 H Eos # (Auto) 0.20 Baso # (Auto) 0.06 Immature Gran # (Auto) 0.23 H RBC Morphology Unremarkable Sodium 144 Potassium 3.5 Chloride 118 H Carbon Dioxide 21 Anion Gap 5.0 BUN 47 H Creatinine 1.33 Est Cr Clr Drug Dosing 61.0 Est GFR ( Amer) 61.9 Est GFR (Non-Af Amer) 53.4 BUN/Creatinine Ratio 35.2 H Glucose 102 H POC Glucose 92 Calcium 9.5 Phosphorus 2.5 Magnesium 2.3 Stl C. diff Tox B Gene Medications Administered Current Inpatient Medications Albuterol (Albuterol Hfa 8 Gm Inhaler) 2 puffs INH Q4H PRN PRN Reason: Shortness Of Breath Stop: 10/22/20 01:56 Albuterol (Albut/Ipratrop 3mg/0.5mg Neb 3 Ml Vial) 3 ml NEB Q4 PRN PRN Reason: Shortness Of Breath Or Wheezing Stop: 11/08/20 07:37 Enoxaparin Sodium (Enoxaparin 100 Mg/1ml Syr) 100 mg SQ Q12H MATHIEU Stop: 11/02/20 11:59 Last Admin: 10/10/20 01:02 Dose: 100 mg Documented by: Heparin Sodium (Beef Lung) (Heparin 10 Unit/Ml 5 Ml Flush) 5 ml FLUSH PRN PRN PRN Reason: Flush Stop: 10/25/20 22:45 Last Admin: 10/06/20 03:29 Dose: 5 ml Documented by: Hydralazine HCl (Hydralazine Hcl 20 Mg/Ml Vial) 10 mg IV Q6 PRN PRN Reason: Hypertension Stop: 10/24/20 18:54 Last Admin: 10/08/20 18:42 Dose: 10 mg Documented by: Cefepime HCl 2,000 mg/ Syringe 20 mls @ 5 mls/min IV Q8H [facility] Stop: 10/10/20 19:59 Last Admin: 10/10/20 04:34 Dose: 5 mls/min Documented by: Linezolid (Zyvox) 600 mg in 300 mls @ 200 mls/hr IV Q12H [facility] Stop: 10/15/20 01:29 Last Infusion: 10/10/20 02:33 Dose: Infused Documented by: Diltiazem HCl 125 mg/ Dextrose 125 mls @ 0 mls/hr IV .Q0M [facility]; Protocol Stop: 11/07/20 22:14 Last Admin: 10/09/20 10:58 Dose: Not Given Documented by: Parenteral Electrolytes (Normosol-R) 1,000 mls @ 80 mls/hr IV .[id number] [facility] Stop: 11/08/20 14:14 Last Admin: 10/10/20 00:40 Dose: 80 mls/hr Documented by: Metoprolol Tartrate (Metoprolol Tartrate 25 Mg Tab) 25 mg PO BID [facility] Stop: 10/27/20 08:59 Last Admin: 10/08/20 23:33 Dose: Not Given Documented by: Metoprolol Tartrate (Metoprolol Tartrate 1 Mg/Ml Vial) 5 mg IV Q6 [facility] Stop: 11/08/20 05:59 Last Admin: 10/10/20 06:51 Dose: 5 mg Documented by: PG Care Time/CCT Total # of Minutes Spent Total Time Spent with Patient: Total time spent is greater than 50% in coordinat ion of care (as documented) at patient's floor/unit and/or counseling patient: Coding Level of Care Code 10315 Subseq Hosp Care Lvl 3 Diagnoses Airway problem J98.9 Pneumonia due to COVID-19 virus U07.1; J12.89 Acute respiratory failure with hypoxia J96.01 Acute metabolic encephalopathy G93.41 Acute kidney injury N17.9 Acute on chronic diastolic CHF (congestive heart failure) I50.33 Hyponatremia E87.1 Vitamin D deficiency E55.9 Restrictive lung disease J98.4 GUS on CPAP G47.33; Z99.89 Gout M10.9 Chronicity: unspecified Gout etiology: unspecified cause Gout site: unspecified site BPH with obstruction/lower urinary tract symptoms N40.1; N13.8 Hypertension I10 Hypertension type: essential hypertension Hypothyroidism E03.9 Hypothyroidism type: unspecified Opioid dependence F11.20 Substance use status: uncomplicated Acid reflux K21.9 Esophagitis presence: esophagitis presence not specified DVT prophylaxis Z29.9 Atrial flutter I48.92 MRSA (methicillin resistant staphylococcus aureus) pneumonia J15.212 Swelling of left hand M79.89 (1) Opioid dependence Substance use status: uncomplicated Qualified Code(s): F11.20 - Opioid dependence, uncomplicated (2) Gout Chronicity: unspecified Gout etiology: unspecified cause Gout site: unspecified site Qualified Code(s): M10.9 - Gout, unspecified (3) Hypothyroidism Hypothyroidism type: unspecified Qualified Code(s): E03.9 - Hypothyroidism, unspecified (4) Acid reflux Esophagitis presence: esophagitis presence not specified Qualified Code(s): K21.9 - Gastro-esophageal reflux disease without esophagitis (5) Hypertension Hypertension type: essential hypertension Qualified Code(s): I10 - Essential (primary) hypertension
[2020-10-10] MEDS ORDERED: RACEPINEPHRINE 2.25% NEBU SOLN 0.5 ML VIAL ONE ×2 (10:38→10:39)
[2020-10-10] MEDS ORDERED: MoRPHine SULFATE 2 MG/ML CARP ONE (10:42)
[2020-10-10] MEDS ORDERED: RAPID SEQUENCE INDUCTION BAG ONE (10:45)
[2020-10-10] MEDS ORDERED: DEXAMETHASONE SOD INJ 4 MG/ML VIAL IV STA (10:47)
[2020-10-10] MEDS ORDERED: LIDOCAINE HCL 2% (LOCAL) INJ 50 ML VIAL ONE (10:54)
[2020-10-10] MEDS ORDERED: LIDOCAINE 2% 20 MG/ML 5 ML SYR IV ONE (10:54)
[2020-10-10] MEDS ORDERED: LIDOCAINE 2% JELLY 5 ML TUBE ONE (10:54)
[2020-10-10] MEDS ORDERED: DexMEDEtomidine BOLUS FROM BAG IV ONE (11:00)
[2020-10-10] MEDS ORDERED: LIDOCAINE MPF 4% LOCAL INJ 5 ML AMP NAE ONE (11:00)
[2020-10-10] MEDS ORDERED: DEXMEDETOMIDINE HCL 200 MCG in SODIUM CHLORIDE 0.9% 48 ML IV SCH (11:00)
--- NOTE | 2020-10-10 11:16 | Pre Anesthesia Assessment ---
Date of Service October 10, 2020 Pre Sedation Assessment Vital Signs Temp Pulse Pulse Resp BP BP BP 10/10/20 11:05 100 H 141/81 H 10/10/20 11:00 102 H 153/96 H 10/10/20 08:01 36.7 C 93 H 18 176/57 H 10/10/20 06:51 107 H 143/67 H 10/10/20 04:00 37.0 C 92 H 24 143/67 H 10/10/20 01:03 106 H 166/87 H 10/10/20 00:00 116 H 10/09/20 23:29 36.7 C 118 H 20 166/87 H 10/09/20 19:28 36.8 C 94 H 20 167/72 H 10/09/20 17:34 97 H 10/09/20 12:01 86 176/65 H 10/09/20 12:00 84 10/09/20 11:35 94 H 159/105 H Pulse Ox 10/10/20 11:05 96 10/10/20 11:00 97 10/10/20 08:01 92 10/10/20 06:51 10/10/20 04:00 94 10/10/20 01:03 10/10/20 00:00 10/09/20 23:29 93 10/09/20 19:28 95 10/09/20 17:34 10/09/20 12:01 98 10/09/20 12:00 98 10/09/20 11:35 Pre-Sedation Airway Assessment Smoking Status: Never smoker Short, Thick Neck: No Thyromental Distance: > or= 3.5 Finger Breadths Oral Cavity: + WNL Mallampati Class: II ASA: ASA4 Notes The planned sedation has been discussed with the patient. Informed Consent was obtained. I have identified the patient, determined the appropriateness of sedation and have assessed the patient immediately prior to the procedure. All medicine(s) and interventions are by my order. Plan sedation with Precedex as single agent with bolus 0.5 mg/kg over 10 minutes Indication is nasopharyngoscopy with possible laryngoscopy and possible endotracheal intubation
--- NOTE | 2020-10-10 11:24 | Procedure Note ---
Procedure Note Date of Service October 10, 2020 Procedure date: Noted above Procedure: fiberoptic nasopharyngoscopy and laryngoscopy with possible endotracheal intubation Pre-procedure indication: Respiratory distress Post-procedure Diagnosis: same as above Prior to Procedure: Informed Consent: Emergent consent implied Attending Staff: Kayla Buck DO Resident/APC: Not applicable Skin Prep: Not applicable Anesthesia: Precedex The identity of the patient was confirmed and a bedside time out was performed. Description of Procedure: Fiberoptic bronchoscopy was performed via right naris nasal trumpet. I was able to adequately visualize the epiglottis, glottic opening, vocal cords, arytenoid cartilages. Findings include significant laryngeal edema, no apparent paradoxical movement of the vocal cords however during exhalation there is enough edema that the cords are almost kissing. I anticipate that this has also complicated his cough. Pictures were obtained and were placed into the chart Complications: None Specimens: None Estimated blood loss: Zero Coding CPT Codes ENT - ENT: 98181 Diagnostic laryngoscopy ([id number]) [facility] [place]) ENT ENT: 60788 Diagnostic laryngoscopy
--- NOTE | 2020-10-10 12:10 | XRay Report ---
KUB CLINICAL HISTORY: Enteric tube placement. FINDINGS: An AP, portable, supine abdominal radiograph is compared to study dated 06/23/2018. An enter ic tube has been placed. The tip projects below the diaphragm over the mid stomach. There is no evide nce of bowel obstruction. Airspace consolidation is seen at the lung bases. IMPRESSION: An enteric tube projects below the diaphragm over the mid stomach. Electronically signed by: Lucas Guadalupe M.D. 10/10/2020 12:09 PM
[2020-10-10] MEDS: dilTIAZem HCL 125 MG in DEXTROSE 5% 100 ML IV SCH (12:15)
--- NOTE | 2020-10-10 13:01 | XRay Report ---
KUB HISTORY: CORESAFE PLACEMENT COMPARISON: KUB 10/10/2020. FINDINGS: The bowel gas pattern is unremarkable. There are no dilated loops of small bowel to suggest an obstruction. No renal calculi. No ureteral calculi. No pneumoperitoneum or pneumatosis. NG tube terminates in the postpyloric position. IMPRESSION: NG tube terminates in the postpyloric position. ACT 112: Negative or not required by law. Electronically signed by: Job Bailey M.D. 10/10/2020 1:00 PM
--- NOTE | 2020-10-10 13:59 | XRay Report ---
XR KUB/Abdomen 1 view CLINICAL HISTORY: coresafe [placement COMPARISON STUDY: Earlier in the day FINDINGS: The enteric tube projects over the region of the gastric antrum/duodenal bulb. There is no pathologic bowel dilatation. IMPRESSION: The enteric tube is positioned with its tip at the level of the gastric antrum/duodenal bulb. ACT 112: Negative or not required by law. Electronically signed by: Mason Ariza M.D. 10/10/2020 1:58 PM
[2020-10-10] MEDS ORDERED: MoRPHine SULFATE 2 MG/ML CARP IV STA (15:00)
[2020-10-10] MEDS ORDERED: MoRPHine SULFATE 4 MG/ML 1 ML CARP\\VIAL IV STA (16:53)
[2020-10-11] MEDS: METOPROLOL TARTRATE 1 MG/ML VIAL IV SCH ×5 (00:07→20:03)
[2020-10-11] MEDS: LINEZOLID 600 MG/300 ML BAG IV SCH ×2 (00:07→12:01)
[2020-10-11] MEDS: ENOXAPARIN 100 MG/1ML SYR SQ SCH ×2 (00:07→12:01)
[2020-10-11 05:30] LABS: Basophils # (auto) 0.01 K/uL (0-0.2); Basophils % (auto) 0.1 %; Eosinophils # (auto) 0.01 K/uL (0-0.5); Eosinophils % (auto) 0.1 %; Hemoglobin 10.1 g/dL (14.0-18.0); Immature Granulocytes # (auto) 0.19 K/uL (0.00-0.02); Immature Granulocytes % (auto) 1.9 %; Lymphocytes # (auto) 1.29 K/uL (1.2-3.4); Lymphocytes % (auto) 13.1 %; Mean Corpuscular Hemoglobin 28.6 pg (25-34); Mean Corpuscular Hgb Conc 32.6 g/dL (32-36); Mean Corpuscular Volume 87.8 fL (80-100); Monocytes # (auto) 0.66 K/uL (0.11-0.59); Monocytes % (auto) 6.7 %; Neutrophils # (auto) 7.69 K/uL (1.4-6.5); Neutrophils % (auto) 78.1 %; Platelet Count 236 K/uL (130-400); RDW Coefficient of Variation 15.9 % (11.5-14.5); RDW Standard Deviation 51.4 fL (36.4-46.3); Red Blood Count 3.53 M/uL (4.7-6.1); White Blood Count 9.85 K/uL (4.8-10.8)
[2020-10-11 05:55] LABS: BUN Creatinine Ratio 35.5 (10-20); Calcium 9.4 mg/dl (8.5-10.1); Magnesium 2.4 mg/dl (1.8-2.4); Phosphorus 2.9 mg/dl (2.5-4.9); Potassium 3.6 mmol/L (3.5-5.1)
[2020-10-11] MEDS: allopurinoL 100 MG TAB OG SCH (08:10)
[2020-10-11] MEDS ORDERED: MoRPHine SULFATE 2 MG/ML CARP ONE (14:08)
[2020-10-11] MEDS ORDERED: MoRPHine SULFATE 2 MG/ML CARP IV STA (14:10)
--- NOTE | 2020-10-11 14:17 | Hospitalist Progress Note ---
Date of Service October 11, 2020 Assessment & Plan (1) Airway problem: acute hypoxic episode morning of 10/10, emergent bronchoscopy by Dr. 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 Buck recommends intubation with tracheostomy discussed with his , she understands situation, agrees with tracheostomy if needed (2) Pneumonia due to COVID-19 virus: -Dexamethasone 6mg IV daily, stopped by pulmonary med no Remdesivir or plasma as he presented 9 days into illness -Albuterol HFA PRN with acute hypoxic respiratory failure treated with BIPAP, tolerated well initially 09/25: intubated and ventilated ID consult 10/02/30 Recommendations: - Recommend stopping Ceftriaxone IV. - Recommend continuing Vancomycin IV for 10 - 14 days. Bacterial superinfection after COVID infection has been well documented Now on Caspofungin, Cefepime and Linezolid extubated on 10/08, breathing well on 6-7L mask, wet cough and rattles in throat but clearing his airway downgrade to [place], vitals stable pull central line on 10/09 (3) Acute respiratory failure with hypoxia: Secondary to Covid-19 PNA, stable with BIPAP on 09/24 however, he deteriorated, required intubation on 09/25 on 10/08 he was on minimal vent settings but was still delirious he was successfully extubated, breathing on 3L NC, but still very disoriented today he is tachypneic, using abdominal muscles, RR in high 20's lungs clear, no stridor, no major changes on CXR gave patient Morphine 2mg IV and he calmed down, RR settled, oxygen saturations remained 95% feel that majority of his tachypnea is driven by confusion, anxiety speech therapy: since he was intubated > 72 hours he would need a video swallow too confused today Coresafe placed for nutrition (4) Acute metabolic encephalopathy: has a history of delirium when hospitalized at baseline he drinks at least 3 beers a day. antibiotics -- Linezolid and Cefepime plus caspofungin Zyprexa was tried, now stopped propofol stopped, Precedex now off with being extubated Lyrica 100mg BID, will try to crush and give via tube hopeful that extubation and stopping all sedation will improve mental status (5) Acute kidney injury: resolved Cr down to baseline, electrolytes stable making adequate urine, Lasix given 10/10 Cr up a little at 1.5, on Normosol today repeat Cr tomorrow (6) Acute on chronic diastolic CHF (congestive heart failure): related to aortic stenosis Lasix 10/10 (7) Hyponatremia: was probably related to CHF - corrected after diuresis. follow periodically (8) Vitamin D deficiency: -Continue supplementation (9) Restrictive lung disease: fortunately no hypercapnea on ABG (10) GUS on CPAP: Chronic -again fortunately no hypercapnea (11) Gout: Chronic. Stable. 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 continue metoprolol and follow (14) Hypothyroidism: Chronic. Stable. Last TSH in 10/24 = 3.95 -Continue Synthroid 25mcg po daily (15) Opioid dependence: Patient with chronic pain and neuropathy -Continue Lyrica 100mg po BID (16) Acid reflux: Chronic. Stable -Pepcid 20mg IV BID - may have effect on disease severity in Covid-19 (17) DVT prophylaxis: lovenox, therapeutic dosing (18) Atrial flutter: intermittent, use Amiodarone if needed Lopressor 5mg IV q4 PRN he is in sinus tachycardia with bigeminy occasionally (19) MRSA (methicillin resistant staphylococcus aureus) pneumonia: MRSA nasal swab positive vancomycin for antibiotic coverage (20) Swelling of left hand: mild erythema, swelling, tender doubt cellulitis as he is on broad spectrum antibiotics could be related to left UE line, will pull central access, place peripheral sites doppler of left arm NEGATIVE for DVT (21) Metabolic acidosis: BICARB is 20, will give sodium bicarb BID via tube if possible Admission and Anticipated Discharge Date Admission Date: September 22, 2020 Subjective patient is alert but very confused, looks around the room with eyes wide open, cannot communicate clearly he is in mild distress with HR 110's and RR in the 20's no stridor or wheezing on exam, lungs sound clear, he is 95% on 6-7L, will obtain a CXR feel that a lot of his issues have to do with delirium, anxiety but we are trying to clear him up mentally called his to provide an update Cr is up slightly, on Normosol 80cc/hr Review of Systems Review of Systems: Unobtainable due to cognitive status and Unobtainable due to reduced consciousness Physical Exam Constitutional: well developed and + morbidly obese; no acute distress Neck: trachea midline and + thick neck no stridor Respiratory: + uses accessory muscles, + cough and + tachypneic; no respiratory distress Auscultation: lungs clear to auscultation bilaterally Cardiovascular: Rate/Rhythm: regular rate and regular rhythm Heart Sounds: normal S1 and normal S2; no murmur Extremities: normal capillary refill; no edema Gastrointestinal (Abdomen): normal bowel sounds, soft, nontender, no hepatosplenomegaly Musculoskeletal: no cyanosis or clubbing, extremities motor strength 5/5 Skin: no rashes, warm and dry + erythema (left hand, swollen, tender) Neurologic: CN's II-XI intact bilaterally, awake and + confused; no focal motor deficits Psychiatric: Orientation: alert; + not oriented x 3 Lymphatic: no cervical or axillary lymphadenopathy Results & Data Results & Data ([facility]) Vital Signs (Past 12 Hours) Vital Signs Temp Pulse Pulse Resp BP BP Pulse Ox 10/11/20 12:01 115 H 10/11/20 12:00 97 10/11/20 11:17 36.7 C 110 H 18 169/95 H 97 10/11/20 07:58 36.9 C 98 H 23 157/80 H 96 10/11/20 05:24 91 H 158/76 H 10/11/20 03:31 36.8 C 82 20 146/68 H 95 Laboratory Results Laboratory Results - last 24 hr 10/10/20 10/10/20 10/10/20 18:41 18:42 18:44 WBC RBC Hgb Hct MCV MCH MCHC RDW Std Deviation RDW Coeff of Bisi Plt Count MPV Immature Gran % (Auto) Neut % (Auto) Lymph % (Auto) [place] % (Auto) Eos % (Auto) Baso % (Auto) Neut # (Auto) Lymph # (Auto) [place] # (Auto) Eos # (Auto) Baso # (Auto) Immature Gran # (Auto) Sodium Potassium Chloride Carbon Dioxide Anion Gap BUN Creatinine Est Cr Clr Drug Dosing Est GFR ( Amer) Est GFR (Non-Af Amer) BUN/Creatinine Ratio Glucose POC Glucose 32 L* 147 H 159 H Calcium Phosphorus Magnesium 10/11/20 10/11/20 10/11/20 05:05 05:05 11:58 WBC 9.85 RBC 3.53 L Hgb 10.1 L Hct 31.0 L MCV 87.8 MCH 28.6 MCHC 32.6 RDW Std Deviation 51.4 H RDW Coeff of Bisi 15.9 H Plt Count 236 MPV 11.0 H Immature Gran % (Auto) 1.9 Neut % (Auto) 78.1 Lymph % (Auto) 13.1 [place] % (Auto) 6.7 Eos % (Auto) 0.1 Baso % (Auto) 0.1 Neut # (Auto) 7.69 H Lymph # (Auto) 1.29 [place] # (Auto) 0.66 H Eos # (Auto) 0.01 Baso # (Auto) 0.01 Immature Gran # (Auto) 0.19 H Sodium 146 H Potassium 3.6 Chloride 119 H Carbon Dioxide 20 L Anion Gap 7.0 BUN 55 H Creatinine 1.56 H Est Cr Clr Drug Dosing 52.0 Est GFR ( Amer) 51.0 Est GFR (Non-Af Amer) 44.0 BUN/Creatinine Ratio 35.5 H Glucose 119 H POC Glucose 117 H Calcium 9.4 Phosphorus 2.9 Magnesium 2.4 Diagnostic Findings XR chest 1V portable CLINICAL HISTORY: tachypnea, hypoxia COMPARISON STUDY: Chest CT October 03, 2020. Chest radiograph October 08, 2020. FINDINGS: Tip of feeding tube is below the lower aspect of this image but at least within the proximal stomach. Cardiomegaly is unchanged. Endotracheal tube has been removed. Lung volumes are at the lower limits of normal. This is unchanged. Extensive bilateral airspace opacities and interstitial thickening have slightly increased. IMPRESSION: 1. Slight increase in extensive bilateral airspace opacities and interstitial thickening. 2. Interval removal of the endotracheal tube. Medications Administered Current Inpatient Medications Albuterol (Albuterol Hfa 8 Gm Inhaler) 2 puffs INH Q4H PRN PRN Reason: Shortness Of Breath Stop: 10/22/20 01:56 Albuterol (Albut/Ipratrop 3mg/0.5mg Neb 3 Ml Vial) 3 ml NEB Q4 PRN PRN Reason: Shortness Of Breath Or Wheezing Stop: 11/08/20 07:37 Allopurinol (Allopurinol 100 Mg Tab) 100 mg OG QAM [facility] Stop: 11/10/20 08:59 Last Admin: 10/11/20 08:10 Dose: 100 mg Documented by: Enoxaparin Sodium (Enoxaparin 100 Mg/1ml Syr) 100 mg SQ Q12H [facility] Stop: 11/02/20 11:59 Last Admin: 10/11/20 12:01 Dose: 100 mg Documented by: Heparin Sodium (Beef Lung) (Heparin 10 Unit/Ml 5 Ml Flush) 5 ml FLUSH PRN PRN PRN Reason: Flush Stop: 10/25/20 22:45 Last Admin: 10/06/20 03:29 Dose: 5 ml Documented by: Hydralazine HCl (Hydralazine Hcl 20 Mg/Ml Vial) 10 mg IV Q6 PRN PRN Reason: Hypertension Stop: 10/24/20 18:54 Last Admin: 10/08/20 18:42 Dose: 10 mg Documented by: Linezolid (Zyvox) 600 mg in 300 mls @ 200 mls/hr IV Q12H [facility] Stop: 10/15/20 01:29 Last Infusion: 10/11/20 14:20 Dose: Infused Documented by: Diltiazem HCl 125 mg/ Dextrose 125 mls @ 0 mls/hr IV .Q0M [facility]; Protocol Stop: 11/07/20 22:14 Last Admin: 10/10/20 12:15 Dose: Not Given Documented by: Parenteral Electrolytes (Normosol-R) 1,000 mls @ 80 mls/hr IV .[id number] [facility] Stop: 11/08/20 14:14 Last Admin: 10/11/20 16:37 Dose: 80 mls/hr Documented by: Metoprolol Tartrate (Metoprolol Tartrate 1 Mg/Ml Vial) 5 mg IV Q4 [facility] Stop: 11/10/20 15:59 Last Admin: 10/11/20 16:24 Dose: 5 mg Documented by: Pregabalin (Pregabalin 100 Mg Cap) 100 mg PO BID [facility] Stop: 11/10/20 20:59 Sodium Bicarbonate (Sodium Bicarbonate 650 Mg Tab) 650 mg PO TID [facility] Stop: 11/10/20 20:59 PG Care Time/CCT Total # of Minutes Spent Total Time Spent with Patient: Total time spent is greater than 50% in coordi nation of care (as documented) at patient's floor/unit and/or counseling patient: Coding Level of Care Code 15964 Subseq Hosp Care Lvl 3 Diagnoses Airway problem J98.9 Pneumonia due to COVID-19 virus U07.1; J12.89 Acute respiratory failure with hypoxia J96.01 Acute metabolic encephalopathy G93.41 Acute kidney injury N17.9 Acute on chronic diastolic CHF (congestive heart failure) I50.33 Hyponatremia E87.1 Vitamin D deficiency E55.9 Restrictive lung disease J98.4 GUS on CPAP G47.33; Z99.89 Gout M10.9 Chronicity: unspecified Gout etiology: unspecified cause Gout site: unspecified site BPH with obstruction/lower urinary tract symptoms N40.1; N13.8 Hypertension I10 Hypertension type: essential hypertension Hypothyroidism E03.9 Hypothyroidism type: unspecified Opioid dependence F11.20 Substance use status: uncomplicated Acid reflux K21.9 Esophagitis presence: esophagitis presence not specified DVT prophylaxis Z29.9 Atrial flutter I48.92 MRSA (methicillin resistant staphylococcus aureus) pneumonia J15.212 Swelling of left hand M79.89 Metabolic acidosis E87.2 (1) Opioid dependence Substance use status: uncomplicated Qualified Code(s): F11.20 - Opioid dependence, uncomplicated (2) Gout Chronicity: unspecified Gout etiology: unspecified cause Gout site: unspeci fied site Qualified Code(s): M10.9 - Gout, unspecified (3) Hypothyroidism Hypothyroidism type: unspecified Qualified Code(s): E03.9 - Hypothyroidism, unspecified (4) Acid reflux Esophagitis presence: esophagitis presence not specified Qualified Code(s): K21.9 - Gastro-esophageal reflux disease without esophagitis (5) Hypertension Hypertension type: essential hypertension Qualified Code(s): I10 - Essential (primary) hypertension
[2020-10-11] MEDS ORDERED: METOPROLOL TARTRATE 1 MG/ML VIAL IV STA (14:35)
--- NOTE | 2020-10-11 14:49 | XRay Report ---
XR chest 1V portable CLINICAL HISTORY: tachypnea, hypoxia COMPARISON STUDY: Chest CT October 03, 2020. Chest radiograph October 08, 2020. FINDINGS: Tip of feeding tube is below the lower aspect of this image but at least within the proxima l stomach. Cardiomegaly is unchanged. Endotracheal tube has been removed. Lung volumes are at the low er limits of normal. This is unchanged. Extensive bilateral airspace opacities and interstitial thick ening have slightly increased. IMPRESSION: 1. Slight increase in extensive bilateral airspace opacities and interstitial thickening. 2. Interval removal of the endotracheal tube. ACT 112: Negative or not required by law. Electronically signed by: Farhan Tavarez M.D. 10/11/2020 2:48 PM
[2020-10-11] MEDS: NORMOSOL-R 1,000 ML IV SCH (16:37)
[2020-10-11] MEDS: SODIUM BICARBONATE 650 MG TAB PO SCH (20:09)
[2020-10-11] MEDS: PREGABALIN 100 MG CAP PO SCH (20:15)
[2020-10-12] MEDS: METOPROLOL TARTRATE 1 MG/ML VIAL IV SCH ×7 (00:28→23:27)
[2020-10-12] MEDS: ENOXAPARIN 100 MG/1ML SYR SQ SCH ×3 (00:28→23:28)
[2020-10-12] MEDS: LINEZOLID 600 MG/300 ML BAG IV SCH ×3 (00:29→23:28)
[2020-10-12] MEDS ORDERED: MoRPHine SULFATE 2 MG/ML CARP IV ONE (02:18)
[2020-10-12] MEDS: NORMOSOL-R 1,000 ML IV SCH (04:10)
[2020-10-12] MEDS ORDERED: MoRPHine SULFATE 2 MG/ML CARP IV STA (04:43)
[2020-10-12 08:29] LABS: BUN Creatinine Ratio 38.9 (10-20); Calcium 9.9 mg/dl (8.5-10.1); Creatinine Clr Calc Pharmacy 44.7 ml/min; Est GFR (African American) 43.2; Est GFR (Non-African American) 37.3; Potassium 4.3 mmol/L (3.5-5.1)
[2020-10-12 08:36] LABS: Albumin Globulin Ratio 0.4 (0.9-2); Bilirubin,Total 0.5 mg/dl (0.2-1); Globulin 5.6 gm/dl (2.5-4.0); Total Protein 7.6 gm/dl (6.4-8.2)
[2020-10-12 08:50] LABS: Hematocrit (blood only) 34.9 % (42-52); Hemoglobin 10.6 g/dL (14.0-18.0); Mean Corpuscular Hemoglobin 28.5 pg (25-34); Mean Corpuscular Hgb Conc 30.4 g/dL (32-36); Mean Corpuscular Volume 93.8 fL (80-100); Mean Platelet Volume 10.2 fL (7.4-10.4); Nucleated RBC # (auto) 0.03 K/uL (0-0); Nucleated RBC % (auto) 0.2 %; Platelet Count 268 K/uL (130-400); RDW Coefficient of Variation 16.5 % (11.5-14.5); RDW Standard Deviation 56.7 fL (36.4-46.3); Red Blood Count 3.72 M/uL (4.7-6.1); White Blood Count 16.56 K/uL (4.8-10.8)
[2020-10-12 08:58] LABS: Basophils # (auto) 0.05 K/uL (0-0.2); Basophils % (auto) 0.3 %; Eosinophils # (auto) 0.13 K/uL (0-0.5); Eosinophils % (auto) 0.8 %; Immature Granulocytes # (auto) 1.07 K/uL (0.00-0.02); Immature Granulocytes % (auto) 6.5 %; Lymphocytes # (auto) 2.66 K/uL (1.2-3.4); Lymphocytes % (auto) 16.1 %; Monocytes # (auto) 1.67 K/uL (0.11-0.59); Monocytes % (auto) 10.1 %; Neutrophils # (auto) 10.98 K/uL (1.4-6.5); Neutrophils % (auto) 66.2 %
[2020-10-12] MEDS ORDERED: DEXTROSE 5% 1,000 ML IV SCH (09:15)
--- NOTE | 2020-10-12 09:16 | Hospitalist Progress Note ---
Date of Service October 12, 2020 Assessment & Plan (1) Airway problem: acute hypoxic episode morning of 10/10, emergent bronchoscopy by Dr. 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 Buck recommends intubation with tracheostomy discussed with his , she understands situation, agrees with tracheostomy if needed Core safe placed for nutrition, resume today slowly, start at 15mL/hr, up every 8 hours until 50mL goal is met (2) Acute respiratory failure with hypoxia: Secondary to Covid-19 PNA, stable with BIPAP on 09/24 however, he deteriorated, required intubation on 09/25 on 10/08 he was on minimal vent settings but was still delirious he was successfully extubated, breathing on 3L NC, but still very disoriented continues to be tachypneic, saturating low 90's on 4-5L mask feel that majority of his tachypnea is driven by confusion, anxiety, encephalopathy speech therapy: since he was intubated > 72 hours he would need a video swallow too confused today Coresafe placed for nutrition (3) Acute metabolic encephalopathy: has a history of delirium when hospitalized at baseline he drinks at least 3 beers a day. antibiotics for infectious etiology -- Linezolid and Cefepime plus caspofungin Zyprexa was tried, now stopped propofol stopped, Precedex now off with being extubated Lyrica 100mg BID, will try to crush and give via tube patient has eyes open, turns head towards my voice but jerks head away repeatedly moves upper extremities, does not move lower extremities no response to pain in lower extremities, Babinski neg, decreased patellar reflexes his says that he has no feeling in feet due to neuropathy, chronic issue I have concerns that his mental status is not improving, will get sodium down with free water will order EEG ask neurology for their opinion, would try to get MRI but he won't lay still and cannot sedate due to airway/breathing tod conversation with his today about my concerns, poor prognosis right now she was tearful, wants to continue everything including tracheostomy if needed to protect airway she wants to visit patient, told her I can try to get approved, right now only approved for end of life visits (4) Hypernatremia: Na up to 151 on Normosol stop Normosol, start D5W at 80cc/hr, give 100mL free water q6 via Coresafe repeat BMP 1300 and 1800 hopeful that correction of Na will help mental status but doubtful (5) Acute kidney injury: initially resolved Cr was down to baseline for over a week, electrolytes stable making adequate urine, Lasix given 10/10 Cr up the past two days, 1.5 yesterday and 1.7 today will stop Normosol due to hypernatremia, change to D5W at 80cc/hr follow UO via goode and repeat BMP this afternoon (6) Pneumonia due to COVID-19 virus: -Dexamethasone 6mg IV daily, stopped by pulmonary med no Remdesivir or plasma as he presented 9 days into illness -Albuterol HFA PRN with acute hypoxic respiratory failure treated with BIPAP, tolerated well initially 09/25: intubated and ventilated ID consult 10/02/30 Recommendations: - Recommend stopping Ceftriaxone IV. - Recommend continuing Vancomycin IV for 10 - 14 days. Bacterial superinfection after COVID infection has been well documented Now on Caspofungin, Cefepime and Linezolid extubated on 10/08, breathing well on 5L mask, wet cough and rattles in throat downgrade to med tele, vitals stable pull central line on 10/09 (7) Acute on chronic diastolic CHF (congestive heart failure): related to aortic stenosis Lasix 10/10 no Lasix today as he appears dry and Cr is up to 1.7 (8) Vitamin D deficiency: -Continue supplementation (9) Restrictive lung disease: fortunately no hypercapnea on ABG (10) GUS on CPAP: Chronic -again fortunately no hypercapnea (11) Gout: Chronic. Stable. 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 continue metoprolol and follow (14) Hypothyroidism: Chronic. Stable. Last TSH in 10/24 = 3.95 -Continue Synthroid 25mcg po daily (15) Opioid dependence: Patient with chronic pain and neuropathy -Continue Lyrica 100mg po BID (16) Acid reflux: Chronic. Stable -Pepcid 20mg IV BID - may have effect on disease severity in Covid-19 (17) DVT prophylaxis: lovenox, therapeutic dosing (18) Atrial flutter: intermittent, use Amiodarone if needed Lopressor 5mg IV q4 PRN he is in sinus tachycardia with bigeminy occasionally (19) MRSA (methicillin resistant staphylococcus aureus) pneumonia: MRSA nasal swab positive vancomycin for antibiotic coverage (20) Swelling of left hand: mild erythema, swelling, tender doubt cellulitis as he is on broad spectrum antibiotics could be related to left UE line, will pull central access, place peripheral sites doppler of left arm NEGATIVE for DVT (21) Metabolic acidosis: BICARB is 23, stop sodium bicarb Admission and Anticipated Discharge Date Admission Date: September 22, 2020 Subjective patient remains confused, on 6L his sodium is up to 151, stop Normosol and start D5W HCO3 is up to 23, stop bicarb tablets Cr is rising to 1.7, follow UO closely, repeat BMP this afternoon WBC up to 16k will update his over the phone discussed with RN in the unit taking care of him start on tube feeds today, low rate on exam he continues to have his eyes open, will turn head towards my voice, fast jerk away from me after he turns, does this several times he is moving upper extremities spontaneously lower extremities will not move with pain stimuli, Babinski unequivocal I spoke with his about these findings, she says that he has almost no feeling in his feet due to neuropathy, this is ongoing issue we discussed his altered mental status the past three days, has not been talking since he had the emergent bronchoscopy even after extubation when he talked he was confused his said that he called her by name four days ago and told her he loved her we discussed palliative care, she does not want to give up on him yet, she is okay with tracheostomy if needed discussed getting neurology consult, EEG cannot get an MRI as he won't lay still and cannot sedate due to airway and hypoxia Review of Systems Review of Systems: Unobtainable due to cognitive status Physical Exam Constitutional: well developed and + morbidly obese; no acute distress Neck: trachea midline and + thick neck Respiratory: + uses accessory muscles, + cough and + tachypneic; no respiratory distress Auscultation: lungs clear to auscultation bilaterally Cardiovascular: Rate/Rhythm: regular rate and regular rhythm Heart Sounds: normal S1 and normal S2; no murmur Extremities: normal capillary refill; no edema Gastrointestinal (Abdomen): normal bowel sounds, soft, nontender, no hepatosplenomegaly Musculoskeletal: no cyanosis or clubbing, extremities motor strength 5/5 Skin: no rashes, warm and dry + erythema (left hand, swollen, tender) Neurologic: CN's II-XI intact bilaterally, awake and + confused; + abnormal touch/pain/proprioception (will not respond to painful stimuli on toes), + does not move all extremities (not moving legs, moves arms spontaneously) and no focal motor deficits Speech / Cognition: + abnormal cognition Motor/Sensory: + abnormal movement (jerking movement of the head and neck) Psychiatric: Orientation: alert (eyes open but no meaningful response); + not oriented x 3 Lymphatic: no cervical or axillary lymphadenopathy Results & Data Results & Data ([facility]) Vital Signs (Past 12 Hours) Vital Signs Temp Pulse Pulse Resp BP BP Pulse Ox 10/12/20 08:51 85 166/83 H 10/12/20 07:58 36.4 C L 85 24 166/83 H 91 10/12/20 04:19 89 121/62 10/12/20 03:57 36.5 C 90 24 167/85 H 95 10/12/20 01:28 75 10/12/20 00:28 91 H 143/68 H 10/11/20 23:41 37.0 C 101 H 20 135/70 94 Laboratory Results Laboratory Results - last 24 hr 10/11/20 10/12/20 10/12/20 11:58 00:09 07:40 WBC 16.56 H RBC 3.72 L Hgb 10.6 L Hct 34.9 L MCV 93.8 D MCH 28.5 MCHC 30.4 L RDW Std Deviation 56.7 H RDW Coeff of Bisi 16.5 H Plt Count 268 MPV 10.2 Immature Gran % (Auto) 6.5 Neut % (Auto) 66.2 Lymph % (Auto) 16.1 Kendall % (Auto) 10.1 Eos % (Auto) 0.8 Baso % (Auto) 0.3 Neut # (Auto) 10.98 H Lymph # (Auto) 2.66 Kendall # (Auto) 1.67 H Eos # (Auto) 0.13 Baso # (Auto) 0.05 Immature Gran # (Auto) 1.07 H Absolute Nucleated RBC 0.03 H Nucleated RBC % (auto) 0.2 Sodium Potassium Chloride Carbon Dioxide Anion Gap BUN Creatinine Est Cr Clr Drug Dosing Est GFR ( Amer) Est GFR (Non-Af Amer) BUN/Creatinine Ratio Glucose POC Glucose 117 H 97 Calcium Total Bilirubin AST ALT Alkaline Phosphatase Total Protein Albumin Globulin Albumin/Globulin Ratio 10/12/20 07:40 WBC RBC Hgb Hct MCV MCH MCHC RDW Std Deviation RDW Coeff of Bisi Plt Count MPV Immature Gran % (Auto) Neut % (Auto) Lymph % (Auto) Kendall % (Auto) Eos % (Auto) Baso % (Auto) Neut # (Auto) Lymph # (Auto) Kendall # (Auto) Eos # (Auto) Baso # (Auto) Immature Gran # (Auto) Absolute Nucleated RBC Nucleated RBC % (auto) Sodium 151 H Potassium 4.3 D Chloride 120 H Carbon Dioxide 23 Anion Gap 7.0 BUN 70 H Creatinine 1.79 H Est Cr Clr Drug Dosing 44.7 Est GFR ( Amer) 43.2 Est GFR (Non-Af Amer) 37.3 BUN/Creatinine Ratio 38.9 H Glucose 81 POC Glucose Calcium 9.9 Total Bilirubin 0.5 AST 15 ALT 34 Alkaline Phosphatase 133 H Total Protein 7.6 Albumin 2.0 L Globulin 5.6 H Albumin/Globulin Ratio 0.4 L Medications Administered Current Inpatient Medications Albuterol (Albuterol Hfa 8 Gm Inhaler) 2 puffs INH Q4H PRN PRN Reason: Shortness Of Breath Stop: 10/22/20 01:56 Albuterol (Albut/Ipratrop 3mg/0.5mg Neb 3 Ml Vial) 3 ml NEB Q4 PRN PRN Reason: Shortness Of Breath Or Wheezing Stop: 11/08/20 07:37 Allopurinol (Allopurinol 100 Mg Tab) 100 mg OG QAM MATHIEU Stop: 11/10/20 08:59 Last Admin: 10/11/20 08:10 Dose: 100 mg Documented by: Enoxaparin Sodium (Enoxaparin 100 Mg/1ml Syr) 100 mg SQ Q12H MATHIEU Stop: 11/02/20 11:59 Last Admin: 10/12/20 00:28 Dose: 100 mg Documented by: Heparin Sodium (Beef Lung) (Heparin 10 Unit/Ml 5 Ml Flush) 5 ml FLUSH PRN PRN PRN Reason: Flush Stop: 10/25/20 22:45 Last Admin: 10/06/20 03:29 Dose: 5 ml Documented by: Hydralazine HCl (Hydralazine Hcl 20 Mg/Ml Vial) 10 mg IV Q6 PRN PRN Reason: Hypertension Stop: 10/24/20 18:54 Last Admin: 10/08/20 18:42 Dose: 10 mg Documented by: Linezolid (Zyvox) 600 mg in 300 mls @ 200 mls/hr IV Q12H MATHIEU Stop: 10/15/20 01:29 Last Infusion: 10/12/20 01:59 Dose: Infused Documented by: Diltiazem HCl 125 mg/ Dextrose 125 mls @ 0 mls/hr IV .Q0M MATHIEU; Protocol Stop: 11/07/20 22:14 Last Admin: 10/10/20 12:15 Dose: Not Given Documented by: Dextrose (D5w) 1,000 mls @ 80 mls/hr IV .[id number] [facility] Stop: 11/11/20 09:14 Metoprolol Tartrate (Metoprolol Tartrate 1 Mg/Ml Vial) 5 mg IV Q4 MATHIEU Stop: 11/10/20 15:59 Last Admin: 10/12/20 08:51 Dose: 5 mg Documented by: Pregabalin (Pregabalin 100 Mg Cap) 100 mg PO BID MATHIEU Stop: 11/10/20 20:59 Last Admin: 10/11/20 20:15 Dose: 100 mg Documented by: Sterile Water (Tube Feeding Water Flush) 100 ml GT Q6 [facility] Stop: 11/11/20 09:14 PG Care Time/CCT Total # of Minutes Spent Total Time Spent: 40 Total Time Spent with Patient: Total time spent is greater than 50% in coordination of care (as documented) at patient's floor/unit and/or counseling patient: Coding Level of Care Code 79319 Subseq Hosp Care Lvl 3 Diagnoses Airway problem J98.9 Acute respiratory failure with hypoxia J96.01 Acute metabolic encephalopathy G93.41 Hypernatremia E87.0 Acute kidney injury N17.9 Pneumonia due to COVID-19 virus U07.1; J12.89 Acute on chronic diastolic CHF (congestive heart failure) I50.33 Vitamin D deficiency E55.9 Restrictive lung disease J98.4 GUS on CPAP G47.33; Z99.89 Gout M10.9 Chronicity: unspecified Gout etiology: unspecified cause Gout site: unspecified site BPH with obstruction/lower urinary tract symptoms N40.1; N13.8 Hypertension I10 Hypertension type: essential hypertension Hypothyroidism E03.9 Hypothyroidism type: unspecified Opioid dependence F11.20 Substance use status: uncomplicated Acid reflux K21.9 Esophagitis presence: esophagitis presence not specified DVT prophylaxis Z29.9 Atrial flutter I48.92 MRSA (methicillin resistant staphylococcus aureus) pneumonia J15.212 Swelling of left hand M79.89 Metabolic acidosis E87.2 (1) Opioid dependence Substance use status: uncomplicated Qualified Code(s): F11.20 - Opioid dependence, uncomplicated (2) Gout Chronicity: unspecified Gout etiology: unspecified cause Gout site: unspecified site Qualified Code(s): M10.9 - Gout, unspecified (3) Hypothyroidism Hypothyroidism type: unspecified Qualified Code(s): E03.9 - Hypothyroidism, unspecified (4) Acid reflux Esophagitis presence: esophagitis presence not specified Qualified Code(s): K21.9 - Gastro-esophageal reflux disease without esophagitis (5) Hypertension Hypertension type: essential hypertension Qualified Code(s): I10 - Essential (primary) hypertension
[2020-10-12] MEDS: PREGABALIN 100 MG CAP PO SCH ×2 (09:42→20:51)
[2020-10-12] MEDS: allopurinoL 100 MG TAB OG SCH (09:42)
[2020-10-12] MEDS: TUBE FEEDING WATER FLUSH GT SCH ×4 (09:42→23:28)
[2020-10-12] MEDS: SODIUM BICARBONATE 650 MG TAB PO SCH (09:43)
[2020-10-12] MEDS ORDERED: PEPTAMEN 1.5 CAL 1,000 ML BAG GT SCH (12:00)
[2020-10-12 13:55] LABS: BUN Creatinine Ratio 39.9 (10-20); Calcium 9.5 mg/dl (8.5-10.1); Creatinine Clr Calc Pharmacy 43.3 ml/min; Est GFR (African American) 41.5; Est GFR (Non-African American) 35.8; Potassium 4.2 mmol/L (3.5-5.1)
[2020-10-12 18:50] LABS: BUN Creatinine Ratio 38.8 (10-20); Calcium 9.3 mg/dl (8.5-10.1); Creatinine Clr Calc Pharmacy 40.2 ml/min; Est GFR (Non-African American) 32.8
[2020-10-13] MEDS: METOPROLOL TARTRATE 1 MG/ML VIAL IV SCH ×5 (03:32→20:20)
[2020-10-13] MEDS: MoRPHine SULFATE 2 MG/ML CARP IV PRN ×2 (03:33→19:52)
[2020-10-13] MEDS: TUBE FEEDING WATER FLUSH GT SCH ×3 (05:00→18:03)
[2020-10-13 06:22] LABS: Hematocrit (blood only) 28.7 % (42-52); Hemoglobin 8.7 g/dL (14.0-18.0); Mean Corpuscular Hemoglobin 28.1 pg (25-34); Mean Corpuscular Hgb Conc 30.3 g/dL (32-36); Mean Corpuscular Volume 92.6 fL (80-100); Mean Platelet Volume 10.4 fL (7.4-10.4); Platelet Count 186 K/uL (130-400); RDW Coefficient of Variation 16.3 % (11.5-14.5); RDW Standard Deviation 54.1 fL (36.4-46.3); White Blood Count 9.81 K/uL (4.8-10.8)
[2020-10-13 07:13] LABS: BUN Creatinine Ratio 42.1 (10-20); Calcium 8.7 mg/dl (8.5-10.1); Creatinine Clr Calc Pharmacy 39.6 ml/min; Est GFR (African American) 36.9; Est GFR (Non-African American) 31.8; Potassium 3.9 mmol/L (3.5-5.1)
[2020-10-13] MEDS: PREGABALIN 100 MG CAP PO SCH (07:25)
[2020-10-13] MEDS: allopurinoL 100 MG TAB OG SCH (07:25)
--- NOTE | 2020-10-13 08:27 | XRay Report ---
XR chest 1V portable HISTORY: 69 years-old Male hypoxia acute hypoxia COMPARISON: Chest radiograph 10/11/2020 TECHNIQUE: Portable AP view of the chest FINDINGS: Cardiac silhouette is enlarged, unchanged. Enteric tube courses below the diaphragm outside the field -of-view. There is slight improvement of the bilateral mixed interstitial and alveolar opacities. Lucho nting of the costophrenic angles suggests trace pleural effusions. No pneumothorax. Degenerative montiel ges of the shoulders and spine. IMPRESSION: 1. Slightly improved aeration of the bilateral lungs. 2. Trace pleural effusions. 3. Cardiomegaly. ACT 112: Negative or not required by law. The above report was generated using voice recognition software. It may contain grammatical, syntax o r spelling errors. Electronically signed by: Casimiro Marcano M.D. 10/13/2020 8:26 AM
[2020-10-13 09:16] LABS: Base Excess ABG 4.5 mEq/L (-9-1.8); HCO3 ABG 29 mmol/L (19-24); Oxygen Saturation ABG 97.5 % (90-95); PCO2 ABG 42 mmHg (35-46); PO2 ABG 102 mmHg (80-95); pH ABG 7.45 (7.35-7.45)
[2020-10-13 09:17] LABS: Allen Test Pos (Pos)
--- NOTE | 2020-10-13 10:16 | Neurology Consultation ---
Date of Consultation October 13, 2020 Assessment & Plan (1) Encephalopathy: Persistent encephalopathy occurring in the context of a prolonged hospitalization for respiratory failure due to COVID-19 infection, metabolic encephalopathy, hypernatremia currently, and kidney injury. He does not appear to be on any significantly sedating medications currently other than Lyrica and as needed morphine sulfate. He may have a persistent hypoxic encephalopathy related to his acute respiratory failure that required mechanical ventilation. The extent to which the acute hypoxic episode that occurred 3 mornings ago contributes to his current clinical status is unclear. I did not observe any obvious myoclonic movements during my assessment of him this morning. I do not strongly suspect subclinical seizure activity at this time. I would recommend completion of a brain MRI to exclude subacute stroke and other pathology that may otherwise explain his persistent encephalopathy. I agree with obtaining an EEG as ordered. The study should be completed today, discussed with our technologist. I would recommend holding this patient's Lyrica for the time being as this medication could be contributing to his encephalopathy in the context of acute renal failure. I will make further recommendations pending completion of the above testing. History of Present Illness Reason for Consultation: Encephalopathy Requesting Physician: Nathan Beltre DO Attending Physician: Nathan Beltre DO History of Present Illness The patient is a 69-year-old male who presented to the emergency department on September 21, 2020 with cough, fevers, and shortness of breath that have been pr esent for approximately 10 days in the context of recent COVID-19 virus infection. He was admitted with acute hypoxic respiratory failure in the setting of multifocal pneumonia. He was initially modestly hyponatremic as well. Additional chronic issues for this patient include restrictive lung disease, hypertension, opioid dependence, and peripheral neuropathy. He has had a prolonged hospital course complicated by an acute hypoxic episode on the morning of October 10 requiring emergent bronchoscopy with evidence of edema in the airway. His respiratory status had previously deteriorated requiring intubation on September 25. He was extubated on October 08 and has been on BiPAP. He did have a CT of the head completed on September 27 for further evaluation of encephalopathy at that time. The study was negative for hemorrhage or acute process. The patient has been persistently encephalopathic. The examining hospitalist had noted that the patient will, "... open his eyes, turn head towa rds voice, but jerk head away repeatedly, moves upper extremities, but does not move lower extremities. No response to pain in the lower extremities." Concern for lack of improvement in patient's mental status. An EEG and neurological consultation were ordered. Upon entering this patient's room this morning, his status does not appear to be significantly changed. Patient continues to exhibit a significant encephalopathy and is unable to provide any details regarding his history of present illness. The above information was gathered by chart review. Allergies Allergy/AdvReac Type Severity Reaction Status Date / Time tetracycline Allergy Unknown SORES IN Verified 09/21/20 22:09 MOUTH aspirin AdvReac Intermediate ulcer Verified 09/21/20 22:09 Home Medications Medication Instructions Recorded Confirmed Type cholecalciferol (vitamin D3) 100 4,000 units PO DAILY 03/09/19 09/21/20 History mcg (4,000 unit) capsule hydrocortisone 1 % topical cream 1 appln TOP TID PRN 03/09/19 09/21/20 History multivitamin 1 tab PO DAILY #30 tab 03/09/19 09/21/20 Rx vitamin B complex 1 cap PO DAILY #30 cap 03/09/19 09/21/20 Rx ferrous sulfate 325 mg (65 mg 325 mg PO DAILY 11/23/19 09/21/20 History iron) tablet allopurinol 100 mg tablet 100 mg PO DAILY #90 tab 12/06/19 09/21/20 Rx levocetirizine 5 mg tablet 5 mg PO DAILY #90 tab 12/07/19 09/21/20 Rx duloxetine 60 mg capsule,delayed 60 mg PO DAILY #90 cap 12/28/19 09/21/20 Rx release metoprolol tartrate 25 mg tablet 25 mg PO BID #180 tab 12/28/19 09/21/20 Rx alfuzosin 10 mg tablet,extended 10 mg PO DAILY #90 tab 05/08/20 09/21/20 Rx release 24 hr levothyroxine 25 mcg tablet 25 mcg PO DAILY #90 tab 06/18/20 09/21/20 Rx pregabalin 100 mg capsule 100 mg PO TID #270 cap 06/19/20 09/21/20 Rx lansoprazole 30 mg capsule,delayed 30 mg PO DAILY #90 cap 07/03/20 09/21/20 Rx release mirabegron 50 mg tablet,extended 50 mg PO DAILY #90 tab 07/30/20 09/21/20 Rx release 24 hr solifenacin 10 mg tablet 10 mg PO DAILY #90 tab 07/30/20 09/21/20 Rx oxycodone-acetaminophen 10 mg-325 1 tab PO TID PRN #90 tab 09/11/20 09/21/20 Rx mg tablet ropinirole 2 mg PO HS 09/21/20 09/21/20 History Patient History Medical History Acute renal insufficiency Anemia Aortic valve sclerosis Arthritis ATN (acute tubular necrosis) BMI 40.0-44.9, adult BPH (benign prostatic hyperplasia) BPH with obstruction/lower urinary tract symptoms Cellulitis Chronic pain of both knees Chronic pain syndrome Erectile dysfunction Fever Foot drop, left Gait disturbance Gout Hepatic steatosis History of dysplastic nevus Hypokalemia Hypotension Hypotension (arterial) Hypoxia Irritable bowel syndrome (IBS) Leukocytosis Lower urinary tract symptoms (LUTS) Lumbar spinal stenosis Lumbar spine tumor MGUS (monoclonal gammopathy of unknown significance) Nephrolithiasis Opioid dependence GUS on CPAP Palliative care encounter Periodic limb movement sleep disorder Pneumonia Restrictive lung disease Sepsis Septic shock Septicemia due to group B Streptococcus SIRS (systemic inflammatory response syndrome) Vitamin D deficiency Surgical History History of arthroscopy of knee right knee History of back surgery remove spinal cord tumor, 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 History of cataract surgery History of hemicolectomy History of lithotripsy renal History of liver biopsy due to elevated LFTs, states that in evidence of damage from heavy metal exposure Family History Father Blood clots in biliary tract following procedure father from embolic stroke after episodes of DVT Mother Cardiac disorder Diabetes Hypertension Kidney stone Brother Kidney stone Social History Smoking Status: Never smoker Age Started Using Tobacco: 17; Age Quit Using Tobacco: 23; packs per day: 1; Years Smoked: 26; Number of Years Since Quit: 35; Second Hand Exposure: No; Hx Alcohol Use: Yes Alcohol type: beer Alcohol Intake Frequency Comment: 2-3 per day Hx Substance Use: No Preferred Language: Slovak Communication Ability: Impaired Visual Impairment: Diminished Hearing Ability: Hard of Hearing Manager Integration Required: No Beliefs That Will Affect Care: None marital status: Current Living Situation: Spouse current occupational status: 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 He is lying for the most part rather still in bed and was in the process of having his BiPAP changed prior to my assessment. He will open his eyes briefly to voice and tactile stimulation but is nonverbal and does not follow commands. He will occasionally move his arms in a semipurposeful fashion, attempting to grab at bed sheets. He does not localize or withdrawal to pain. Full testing of higher integrative cognitive functioning such as orientation, memory, fund of knowledge, etc. cannot be completed due to patient's altered mental status. He is obtunded. Patient's pupils are equal, round, and reactive to light. Oculocephalic reflexes and corneal reflexes are intact. Visual ha and acuity cannot be assessed. There is no obvious facial asymmetry or droop. Hearing is intact to the extent that he will open his eyes to a loud clap. Testing of palate, tongue movements, and shoulder shrug cannot be completed. Testing of sensation and coordination could not be completed. Deep tendon reflexes are diffusely diminished. Plantar responses silent. Ophthalmoscopic examination could not be completed due to poor patient cooperation. Carotid pulses normal, no bruits to auscultation. Gait and station could not be completed. Muscle tone is diffusely normal, no atrophy. No abnormal movements observed. No dystonic posturing or tremors. Gross muscle strength could not be evaluated due to poor patient cooperation. He does not display any gross asymmetry in muscle tone or posturing. No obvious signs of a hemiparesis. Results & Data ([facility]) Vital Signs (Past 12 Hours) Vital Signs Temp Pulse Pulse Resp BP BP BP 10/13/20 07:41 95 H 29 H 10/13/20 07:25 84 171/76 H 10/13/20 07:00 37.3 C 91 H 20 184/82 H 10/13/20 03:32 85 158/65 H 10/13/20 03:00 36.9 C 86 85 24 158/65 H 10/13/20 02:08 75 10/12/20 23:34 37.1 C 79 28 H 147/70 H 10/12/20 23:27 80 147/70 H Pulse Ox 10/13/20 07:41 95 10/13/20 07:25 10/13/20 07:00 91 10/13/20 03:32 10/13/20 03:00 96 10/13/20 02:08 10/12/20 23:34 97 10/12/20 23:27 Laboratory Results WBC 9.81, hemoglobin 8.7, hematocrit 28.7, platelet count 186, sodium 146, potassium 3.9, BUN 86, creatinine 2.04, glucose 87, calcium 8.7, magnesium 2.4, ammonia level from September 24 was less than 10, Diagnostic Findings CT of the head completed September 27, 2020 was negative for hemorrhage, mass- effect, or acute process. These findings were observed by the interpreting radiologist. I reviewed the images and agree. Electrocardiogram completed October 08, 2020 revealed sinus tachycardia with frequent premature ventricular complexes. Coding Level of Care Code 29068 Initial Inpt Care Lvl 3 Diagnoses Encephalopathy G93.40
[2020-10-13] MEDS: ENOXAPARIN 100 MG/1ML SYR SQ SCH (11:13)
[2020-10-13] MEDS: LINEZOLID 600 MG/300 ML BAG IV SCH (11:14)
--- NOTE | 2020-10-13 12:08 | Electroencephalogram ---
EEG Procedure Note Date of Service October 13, 2020 Start / End Times Start Time: 11:44 AM End Time: 12:04 PM Referring Physician Dale Fairchild MD History Encephalopathy Home Medication List Medication Instructions Recorded Confirmed Type cholecalciferol (vitamin D3) 100 4,000 units PO DAILY 03/09/19 09/21/20 History mcg (4,000 unit) capsule hydrocortisone 1 % topical cream 1 appln TOP TID PRN 03/09/19 09/21/20 History multivitamin 1 tab PO DAILY #30 tab 03/09/19 09/21/20 Rx vitamin B complex 1 cap PO DAILY #30 cap 03/09/19 09/21/20 Rx ferrous sulfate 325 mg (65 mg 325 mg PO DAILY 11/23/19 09/21/20 History iron) tablet allopurinol 100 mg tablet 100 mg PO DAILY #90 tab 12/06/19 09/21/20 Rx levocetirizine 5 mg tablet 5 mg PO DAILY #90 tab 12/07/19 09/21/20 Rx duloxetine 60 mg capsule,delayed 60 mg PO DAILY #90 cap 12/28/19 09/21/20 Rx release metoprolol tartrate 25 mg tablet 25 mg PO BID #180 tab 12/28/19 09/21/20 Rx alfuzosin 10 mg tablet,extended 10 mg PO DAILY #90 tab 05/08/20 09/21/20 Rx release 24 hr levothyroxine 25 mcg tablet 25 mcg PO DAILY #90 tab 06/18/20 09/21/20 Rx pregabalin 100 mg capsule 100 mg PO TID #270 cap 06/19/20 09/21/20 Rx lansoprazole 30 mg capsule,delayed 30 mg PO DAILY #90 cap 07/03/20 09/21/20 Rx release mirabegron 50 mg tablet,extended 50 mg PO DAILY #90 tab 07/30/20 09/21/20 Rx release 24 hr solifenacin 10 mg tablet 10 mg PO DAILY #90 tab 07/30/20 09/21/20 Rx oxycodone-acetaminophen 10 mg-325 1 tab PO TID PRN #90 tab 09/11/20 09/21/20 Rx mg tablet ropinirole 2 mg PO HS 09/21/20 09/21/20 History Inpatient Medication List Albuterol (Albut/Ipratrop 3mg/0.5mg Neb 3 Ml Vial) 3 ml NEB Q4 PRN PRN Reason: Shortness Of Breath Or Wheezing Stop: 11/08/20 07:37 Last Admin: 10/12/20 21:03 Dose: 3 ml Documented by: [id number] Allopurinol (Allopurinol 100 Mg Tab) 100 mg OG QAM [facility] Stop: 11/10/20 08:59 Last Admin: 10/13/20 07:25 Dose: Not Given Documented by: [id number] Admin: 10/12/20 09:42 Dose: 100 mg Documented by: [id number] Admin: 10/11/20 08:10 Dose: 100 mg Documented by: [id number] Enoxaparin Sodium (Enoxaparin 100 Mg/1ml Syr) 100 mg SQ Q12H [facility] Stop: 11/02/20 11:59 Last Admin: 10/13/20 11:13 Dose: 100 mg Documented by: [id number] Admin: 10/12/20 23:28 Dose: 100 mg Documented by: [id number] Admin: 10/12/20 14:32 Dose: 100 mg Documented by: [id number] Admin: 10/12/20 00:28 Dose: 100 mg Documented by: [id number] Admin: 10/11/20 12:01 Dose: 100 mg Documented by: [id number] Admin: 10/11/20 00:07 Dose: 100 mg Documented by: [id number] Admin: 10/10/20 11:47 Dose: 100 mg Documented by: [id number] Admin: 10/10/20 01:02 Dose: 100 mg Documented by: [id number] Admin: 10/09/20 11:35 Dose: 100 mg Documented by: [id number] Admin: 10/08/20 23:33 Dose: 100 mg Documented by: [id number] Admin: 10/08/20 00:20 Dose: 100 mg Documented by: [id number] Admin: 10/07/20 12:31 Dose: 100 mg Documented by: [id number] Admin: 10/06/20 23:25 Dose: 100 mg Documented by: [id number] Admin: 10/06/20 11:39 Dose: 100 mg Documented by: [id number] Admin: 10/06/20 00:24 Dose: 100 mg Documented by: [id number] Admin: 10/05/20 11:51 Dose: 100 mg Documented by: [id number] Admin: 10/05/20 00:51 Dose: 100 mg Documented by: [id number] Admin: 10/04/20 12:10 Dose: 100 mg Documented by: [id number] Admin: 10/03/20 23:37 Dose: 100 mg Documented by: [id number] Admin: 10/03/20 11:46 Dose: 100 mg Documented by: [id number] Enteral Nutritional Formula (Peptamen 1.5 Oscar 1,000 Ml Bag) 1,000 ml GT UD [facility]; Protocol Stop: 11/11/20 11:59 Last Admin: 10/13/20 03:34 Dose: 1,000 ml Documented by: [id number] Heparin Sodium (Beef Lung) (Heparin 10 Unit/Ml 5 Ml Flush) 5 ml FLUSH PRN PRN PRN Reason: Flush Stop: 10/25/20 22:45 Last Admin: 10/06/20 03:29 Dose: 5 ml Documented by: [id number] Admin: 10/01/20 10:43 Dose: 5 ml Documented by: [id number] Hydralazine HCl (Hydralazine Hcl 20 Mg/Ml Vial) 10 mg IV Q6 PRN PRN Reason: Hypertension Stop: 10/24/20 18:54 Last Admin: 10/08/20 18:42 Dose: 10 mg Documented by: [id number] Admin: 09/30/20 07:48 Dose: 10 mg Documented by: [id number] Admin: 09/29/20 18:36 Dose: 10 mg Documented by: [id number] Admin: 09/29/20 04:52 Dose: 10 mg Documented by: [id number] Admin: 09/25/20 14:43 Dose: 10 mg Documented by: [id number] Admin: 09/25/20 01:08 Dose: 10 mg Documented by: [id number] Admin: 09/24/20 19:59 Dose: 10 mg Documented by: [id number] Linezolid (Zyvox) 600 mg in 300 mls @ 300 mls/hr IV Q12H [facility]; Protocol Stop: 10/15/20 23:59 Last Admin: 10/13/20 11:14 Dose: 300 mls/hr Documented by: [id number] Infusion: 10/13/20 00:35 Dose: 0 mls/hr Documented by: [id number] Admin: 10/12/20 23:28 Dose: 300 mls/hr Documented by: [id number] Metoprolol Tartrate (Metoprolol Tartrate 1 Mg/Ml Vial) 5 mg IV Q4 [facility] Stop: 11/10/20 15:59 Last Admin: 10/13/20 11:13 Dose: 5 mg Documented by: [id number] Admin: 10/13/20 07:25 Dose: 5 mg Documented by: [id number] Admin: 10/13/20 03:32 Dose: 5 mg Documented by: [id number] Admin: 10/12/20 23:27 Dose: 5 mg Documented by: [id number] Admin: 10/12/20 19:22 Dose: 5 mg Documented by: [id number] Admin: 10/12/20 16:55 Dose: 5 mg Documented by: [id number] Admin: 10/12/20 12:21 Dose: 5 mg Documented by: [id number] Admin: 10/12/20 08:51 Dose: 5 mg Documented by: [id number] Admin: 10/12/20 04:19 Dose: 5 mg Documented by: [id number] Admin: 10/12/20 00:28 Dose: 5 mg Documented by: [id number] Admin: 10/11/20 20:03 Dose: 5 mg Documented by: [id number] Admin: 10/11/20 16:24 Dose: 5 mg Documented by: [id number] Morphine Sulfate (Morphine Sulfate 2 Mg/Ml Carp) 2 mg IV Q4H PRN PRN Reason: Agitation Stop: 10/26/20 15:16 Last Admin: 10/13/20 03:33 Dose: 2 mg Documented by: [id number] Sterile Water (Tube Feeding Water Flush) 100 ml GT Q6 [facility] Stop: 11/11/20 09:14 Last Admin: 10/13/20 11:14 Dose: 100 ml Documented by: [id number] Admin: 10/13/20 05:00 Dose: 100 ml Documented by: [id number] Admin: 10/12/20 23:28 Dose: 100 ml Documented by: [id number] Admin: 10/12/20 16:55 Dose: 100 ml Documented by: [id number] Admin: 10/12/20 12:21 Dose: 100 ml Documented by: [id number] Admin: 10/12/20 09:42 Dose: 100 ml Documented by: [id number] Discontinued Medications Acetaminophen (Acetaminophen 1000 Mg/100 Ml Iv) Confirm Administered Dose 1,000 mg IV .STK-MED ONE Stop: 09/27/20 10:35 Last Admin: 09/27/20 10:45 Dose: 1,000 mg Documented by: [id number] Acetaminophen (Acetaminophen Susp 325 Mg/10.15 Ml Udc) 650 mg PO NOW STA Stop: 10/01/20 17:40 Last Admin: 10/01/20 18:26 Dose: 650 mg Documented by: [id number] Acetaminophen (Acetaminophen Susp 325 Mg/10.15 Ml Udc) 650 mg PO Q6H PRN PRN Reason: Fever Stop: 10/31/20 17:38 Last Admin: 10/07/20 13:16 Dose: 650 mg Documented by: [id number] Admin: 10/06/20 21:51 Dose: 650 mg Documented by: [id number] Admin: 10/06/20 16:07 Dose: 650 mg Documented by: [id number] Admin: 10/06/20 09:10 Dose: 650 mg Documented by: [id number] Admin: 10/05/20 07:53 Dose: 650 mg Documented by: [id number] Admin: 10/04/20 12:15 Dose: 650 mg Documented by: [id number] Admin: 10/04/20 03:50 Dose: 650 mg Documented by: [id number] Admin: 10/03/20 13:02 Dose: 650 mg Documented by: [id number] Admin: 10/03/20 06:35 Dose: 650 mg Documented by: [id number] Admin: 10/02/20 21:52 Dose: 650 mg Documented by: [id number] Admin: 10/02/20 10:15 Dose: 650 mg Documented by: [id number] Albuterol (Albut/Ipratrop 3mg/0.5mg Neb 3 Ml Vial) 3 ml NEB QIDR [facility] Stop: 10/25/20 18:59 Last Admin: 09/27/20 07:42 Dose: 3 ml Documented by: [id number] Admin: 09/26/20 19:03 Dose: 3 ml Documented by: [id number] Admin: 09/26/20 15:29 Dose: 3 ml Documented by: [id number] Admin: 09/26/20 11:24 Dose: 3 ml Documented by: [id number] Admin: 09/26/20 07:45 Dose: 3 ml Documented by: [id number] Admin: 09/25/20 19:34 Dose: 3 ml Documented by: [id number] Albuterol (Albut/Ipratrop 3mg/0.5mg Neb 3 Ml Vial) 3 ml NEB Q8R [facility] Stop: 10/27/20 14:59 Last Admin: 10/09/20 07:41 Dose: Not Given Documented by: [id number] Admin: 10/08/20 23:21 Dose: 3 ml Documented by: [id number] Admin: 10/08/20 16:25 Dose: 3 ml Documented by: [id number] Admin: 10/08/20 08:18 Dose: 3 ml Documented by: [id number] Admin: 10/07/20 23:47 Dose: 3 ml Documented by: [id number] Admin: 10/07/20 15:44 Dose: 3 ml Documented by: [id number] Admin: 10/07/20 07:56 Dose: 3 ml Documented by: [id number] Admin: 10/07/20 00:34 Dose: 3 ml Documented by: [id number] Admin: 10/06/20 15:41 Dose: 3 ml Documented by: [id number] Admin: 10/06/20 07:51 Dose: 3 ml Documented by: [id number] Admin: 10/05/20 23:27 Dose: 3 ml Documented by: [id number] Admin: 10/05/20 15:49 Dose: 3 ml Documented by: [id number] Admin: 10/05/20 08:03 Dose: 3 ml Documented by: [id number] Admin: 10/04/20 23:05 Dose: 3 ml Documented by: [id number] Admin: 10/04/20 16:33 Dose: 3 ml Documented by: [id number] Admin: 10/04/20 08:37 Dose: 3 ml Documented by: [id number] Admin: 10/03/20 23:11 Dose: 3 ml Documented by: [id number] Admin: 10/03/20 19:14 Dose: Not Given Documented by: [id number] Admin: 10/03/20 07:47 Dose: 3 ml Documented by: [id number] Admin: 10/02/20 23:44 Dose: 3 ml Documented by: [id number] Admin: 10/02/20 15:34 Dose: 3 ml Documented by: [id number] Admin: 10/02/20 07:51 Dose: 3 ml Documented by: [id number] Admin: 10/01/20 23:59 Dose: 3 ml Documented by: [id number] Admin: 10/01/20 15:30 Dose: 3 ml Documented by: [id number] Admin: 10/01/20 08:42 Dose: 3 ml Documented by: [id number] Admin: 09/30/20 23:24 Dose: 3 ml Documented by: [id number] Admin: 09/30/20 15:25 Dose: 3 ml Documented by: [id number] Admin: 09/30/20 08:03 Dose: 3 ml Documented by: [id number] Admin: 09/29/20 23:19 Dose: 3 ml Documented by: [id number] Admin: 09/29/20 16:11 Dose: 3 ml Documented by: [id number] Admin: 09/29/20 07:59 Dose: 3 ml Documented by: [id number] Admin: 09/29/20 00:04 Dose: 3 ml Documented by: [id number] Admin: 09/28/20 16:14 Dose: 3 ml Documented by: [id number] Admin: 09/28/20 07:41 Dose: 3 ml Documented by: [id number] Admin: 09/27/20 22:10 Dose: 3 ml Documented by: [id number] Admin: 09/27/20 16:11 Dose: 3 ml Documented by: [id number] Alfuzosin HCl (Alfuzosin Hcl 10 Mg Tab) 10 mg PO DAILY [facility] Stop: 10/22/20 08:59 Last Admin: 09/24/20 08:01 Dose: Not Given Documented by: [id number] Admin: 09/23/20 08:36 Dose: 10 mg Documented by: [id number] Admin: 09/22/20 09:08 Dose: 10 mg Documented by: [id number] Allopurinol (Allopurinol 100 Mg Tab) 100 mg PO DAILY [facility] Stop: 10/22/20 08:59 Last Admin: 09/24/20 08:01 Dose: Not Given Documented by: [id number] Admin: 09/23/20 08:35 Dose: 100 mg Documented by: [id number] Admin: 09/22/20 09:08 Dose: 100 mg Documented by: [id number] Allopurinol (Allopurinol 100 Mg Tab) 100 mg PO DAILY [facility] Stop: 10/25/20 17:44 Last Admin: 10/09/20 07:45 Dose: Not Given Documented by: [id number] Admin: 10/08/20 08:46 Dose: 100 mg Documented by: [id number] Admin: 10/07/20 08:12 Dose: 100 mg Documented by: [id number] Admin: 10/06/20 07:31 Dose: 100 mg Documented by: [id number] Admin: 10/05/20 07:50 Dose: 100 mg Documented by: [id number] Admin: 10/04/20 08:52 Dose: 100 mg Documented by: [id number] Admin: 10/03/20 08:34 Dose: 100 mg Documented by: [id number] Admin: 10/02/20 08:55 Dose: 100 mg Documented by: [id number] Admin: 10/01/20 08:28 Dose: 100 mg Documented by: [id number] Admin: 09/30/20 07:51 Dose: 100 mg Documented by: [id number] Admin: 09/29/20 08:12 Dose: 100 mg Documented by: [id number] Admin: 09/28/20 08:18 Dose: 100 mg Documented by: [id number] Admin: 09/27/20 09:02 Dose: 100 mg Documented by: [id number] Admin: 09/26/20 09:42 Dose: 100 mg Documented by: [id number] Admin: 09/25/20 20:20 Dose: 100 mg Documented by: [id number] Clonazepam (Clonazepam 0.25 Mg Tab) 0.25 mg PO BID [facility] Stop: 10/27/20 20:59 Last Admin: 10/02/20 21:31 Dose: 0.25 mg Documented by: [id number] Admin: 10/02/20 08:54 Dose: 0.25 mg Documented by: [id number] Admin: 10/01/20 21:32 Dose: 0.25 mg Documented by: [id number] Admin: 10/01/20 08:26 Dose: 0.25 mg Documented by: [id number] Admin: 09/30/20 21:24 Dose: 0.25 mg Documented by: [id number] Admin: 09/30/20 07:49 Dose: 0.25 mg Documented by: [id number] Admin: 09/29/20 21:27 Dose: 0.25 mg Documented by: [id number] Admin: 09/29/20 08:12 Dose: 0.25 mg Documented by: [id number] Admin: 09/28/20 20:48 Dose: 0.25 mg Documented by: [id number] Admin: 09/28/20 08:17 Dose: 0.25 mg Documented by: [id number] Admin: 09/27/20 21:16 Dose: 0.25 mg Documented by: [id number] Clonazepam (Clonazepam 0.5 Mg Tab) 0.25 mg PO ONE ONE Stop: 10/03/20 10:16 Last Admin: 10/03/20 11:43 Dose: 0.25 mg Documented by: [id number] Dexamethasone (Dexamethasone Sod Inj 10 Mg/Ml Vial) 6 mg IV NOW ONE Stop: 09/21/20 20:38 Last Admin: 09/21/20 21:30 Dose: 6 mg Documented by: [id number] Dexamethasone (Dexamethasone Sod Inj 4 Mg/Ml Vial) 10 mg IV NOW STA Stop: 10/10/20 10:48 Last Admin: 10/10/20 11:47 Dose: 10 mg Documented by: [id number] Dexmedetomidine HCl (Dexmedetomidine Bolus From Bag) 54 mcg IV ONE ONE Stop: 10/10/20 11:01 Last Admin: 10/10/20 11:47 Dose: 54 mcg Documented by: [id number] Diltiazem HCl (Diltiazem Hcl 5 Mg/Ml 5 Ml Vial) 20 mg IV NOW STA Stop: 10/08/20 22:13 Last Admin: 10/08/20 22:23 Dose: 20 mg Documented by: [id number] Cosigned by: [id number] Diltiazem HCl (Diltiazem Hcl 5 Mg/Ml 5 Ml Vial) Confirm Administered Dose 25 mg IV .STK-MED ONE Stop: 10/08/20 22:19 Last Admin: 10/08/20 22:43 Dose: Not Given Documented by: [id number] Docusate Sodium (Docusate Sodium Syrup 100 Mg/10 Ml Udc) 100 mg PO QAM [facility] Stop: 10/26/20 10:59 Last Admin: 10/09/20 07:35 Dose: Not Given Documented by: [id number] Admin: 10/08/20 08:47 Dose: 100 mg Documented by: [id number] Admin: 10/07/20 08:11 Dose: 100 mg Documented by: [id number] Admin: 10/06/20 07:30 Dose: 100 mg Documented by: [id number] Admin: 10/05/20 07:48 Dose: 100 mg Documented by: [id number] Admin: 10/04/20 13:24 Dose: Not Given Documented by: [id number] Admin: 10/03/20 08:31 Dose: 100 mg Documented by: [id number] Admin: 10/02/20 08:55 Dose: 100 mg Documented by: [id number] Admin: 10/01/20 08:27 Dose: 100 mg Documented by: [id number] Admin: 09/30/20 07:50 Dose: 100 mg Documented by: [id number] Admin: 09/29/20 08:11 Dose: 100 mg Documented by: [id number] Admin: 09/28/20 08:19 Dose: 100 mg Documented by: [id number] Admin: 09/27/20 09:02 Dose: 100 mg Documented by: [id number] Admin: 09/26/20 14:02 Dose: 100 mg Documented by: [id number] Doxycycline Hyclate (Doxycycline Hyclate 100 Mg Cap) 100 mg PO BID [facility] Stop: 10/03/20 08:59 Last Admin: 09/29/20 21:02 Dose: 100 mg Documented by: [id number] Admin: 09/29/20 08:11 Dose: 100 mg Documented by: [id number] Admin: 09/28/20 20:38 Dose: 100 mg Documented by: [id number] Admin: 09/28/20 09:55 Dose: 100 mg Documented by: [id number] Duloxetine HCl (Duloxetine Hcl 60 Mg Cap) 60 mg PO DAILY [facility] Stop: 10/22/20 08:59 Last Admin: 09/24/20 08:01 Dose: Not Given Documented by: [id number] Admin: 09/23/20 08:37 Dose: 60 mg Documented by: [id number] Admin: 09/22/20 09:07 Dose: 60 mg Documented by: [id number] Enoxaparin Sodium (Enoxaparin Inj 40 Mg/0.4 Ml Syr) 40 mg SQ BID@0600,1800 [facility] Stop: 10/22/20 02:29 Last Admin: 09/27/20 06:02 Dose: 40 mg Documented by: [id number] Admin: 09/26/20 19:36 Dose: 40 mg Documented by: [id number] Admin: 09/26/20 05:14 Dose: 40 mg Documented by: [id number] Admin: 09/25/20 19:17 Dose: 40 mg Documented by: [id number] Admin: 09/25/20 04:56 Dose: 40 mg Documented by: [id number] Admin: 09/24/20 18:44 Dose: 40 mg Documented by: [id number] Admin: 09/24/20 05:23 Dose: 40 mg Documented by: [id number] Admin: 09/23/20 17:03 Dose: Not Given Documented by: [id number] Admin: 09/23/20 06:49 Dose: 40 mg Documented by: [id number] Admin: 09/22/20 17:20 Dose: 40 mg Documented by: [id number] Admin: 09/22/20 04:34 Dose: 40 mg Documented by: [id number] Enoxaparin Sodium (Enoxaparin 100 Mg/1ml Syr) 100 mg SQ BID@0600,1800 [facility] Stop: 10/27/20 17:59 Last Admin: 10/02/20 20:40 Dose: Not Given Documented by: [id number] Admin: 10/02/20 05:33 Dose: 100 mg Documented by: [id number] Admin: 10/01/20 17:34 Dose: 100 mg Documented by: [id number] Admin: 10/01/20 05:48 Dose: 100 mg Documented by: [id number] Admin: 09/30/20 17:04 Dose: 100 mg Documented by: [id number] Admin: 09/30/20 04:56 Dose: 100 mg Documented by: [id number] Admin: 09/29/20 17:54 Dose: 100 mg Documented by: [id number] Admin: 09/29/20 04:53 Dose: 100 mg Documented by: [id number] Admin: 09/28/20 18:42 Dose: 100 mg Documented by: [id number] Admin: 09/28/20 05:54 Dose: 100 mg Documented by: [id number] Admin: 09/27/20 16:49 Dose: 100 mg Documented by: [id number] Epinephrine (Racepinephrine 2.25% Nebu Soln 0.5 Ml Vial) Confirm Administered Dose 0.5 ml .ROUTE .STK-MED ONE Stop: 10/10/20 10:39 Last Admin: 10/10/20 11:46 Dose: 0.5 ml Documented by: [id number] Epinephrine (Racepinephrine 2.25% Nebu Soln 0.5 Ml Vial) Confirm Administered Do se 0.5 ml .ROUTE .STK-MED ONE Stop: 10/10/20 10:40 Last Admin: 10/10/20 11:46 Dose: 0.5 ml Documented by: [id number] Etomidate (Etomidate 2 Mg/Ml 20 Ml Vial) Confirm Administered Dose 40 mg IV .STK-MED ONE Stop: 09/25/20 18:42 Last Admin: 09/25/20 17:00 Dose: 20 mg Documented by: [id number] Famotidine (Famotidine 20 Mg Tab) 20 mg PO BID [facility] Stop: 11/01/20 20:59 Last Admin: 10/08/20 08:46 Dose: 20 mg Documented by: [id number] Admin: 10/07/20 20:28 Dose: 20 mg Documented by: [id number] Admin: 10/07/20 08:12 Dose: 20 mg Documented by: [id number] Admin: 10/06/20 19:42 Dose: 20 mg Documented by: [id number] Admin: 10/06/20 07:31 Dose: 20 mg Documented by: [id number] Admin: 10/05/20 19:48 Dose: 20 mg Documented by: [id number] Admin: 10/05/20 07:49 Dose: 20 mg Documented by: [id number] Admin: 10/04/20 20:17 Dose: 20 mg Documented by: [id number] Admin: 10/04/20 08:52 Dose: 20 mg Documented by: [id number] Admin: 10/03/20 20:30 Dose: 20 mg Documented by: [id number] Admin: 10/03/20 08:32 Dose: 20 mg Documented by: [id number] Admin: 10/02/20 21:31 Dose: 20 mg Documented by: [id number] Fentanyl Citrate (Fentanyl Bolus From Bag) 50 mcg IV Q60M PRN PRN Reason: Pain or Agitation Stop: 10/09/20 16:31 Last Admin: 10/06/20 01:13 Dose: 50 mcg Documented by: [id number] Admin: 09/29/20 04:52 Dose: 50 mcg Documented by: [id number] Admin: 09/27/20 10:26 Dose: 50 mcg Documented by: [id number] Admin: 09/25/20 19:59 Dose: 50 mcg Documented by: [id number] Fentanyl Citrate (Fentanyl Citrate 100 Mcg/2 Ml Vial) 50 mcg IV NOW STA Stop: 10/06/20 23:28 Last Admin: 10/06/20 23:39 Dose: 50 mcg Documented by: [id number] Fentanyl Citrate (Fentanyl Citrate 100 Mcg/2 Ml Vial) Confirm Administered Dose 100 mcg .ROUTE .STK-MED ONE Stop: 10/06/20 23:35 Last Admin: 10/06/20 23:43 Dose: Not Given Documented by: [id number] Fentanyl Citrate (Fentanyl Citrate 100 Mcg/2 Ml Vial) 50 mcg IV NOW STA Stop: 10/07/20 21:53 Last Admin: 10/07/20 21:59 Dose: 50 mcg Documented by: [id number] Fentanyl Citrate (Fentanyl Citrate 100 Mcg/2 Ml Vial) 100 mcg IV NOW STA Stop: 10/07/20 23:42 Last Admin: 10/08/20 00:18 Dose: 100 mcg Documented by: [id number] Furosemide (Furosemide 10 Mg/Ml 10 Ml Vial) Confirm Administered Dose 10 mg IV .STK-MED ONE Stop: 09/22/20 11:01 Last Admin: 09/22/20 11:20 Dose: Not Given Documented by: [id number] Furosemide (Furosemide 40 Mg/4 Ml Vial) Confirm Administered Dose 40 mg IV .STK- MED ONE Stop: 09/22/20 11:03 Last Admin: 09/22/20 11:20 Dose: Not Given Documented by: [id number] Furosemide (Furosemide 40 Mg/4 Ml Vial) 40 mg IV ONE ONE Stop: 09/24/20 03:46 Last Admin: 09/24/20 03:50 Dose: 40 mg Documented by: [id number] Guaifenesin (Guaifenesin Sugar Free 100 Mg/5 Ml Udc) 100 mg PO Q8H [facility] Stop: 10/25/20 20:14 Last Admin: 10/06/20 03:32 Dose: 100 mg Documented by: [id number] Admin: 10/05/20 19:46 Dose: 100 mg Documented by: [id number] Admin: 10/05/20 11:53 Dose: 100 mg Documented by: [id number] Admin: 10/05/20 03:57 Dose: 100 mg Documented by: [id number] Admin: 10/04/20 20:16 Dose: 100 mg Documented by: [id number] Admin: 10/04/20 12:15 Dose: 100 mg Documented by: [id number] Admin: 10/04/20 03:50 Dose: 100 mg Documented by: [id number] Admin: 10/03/20 20:34 Dose: 100 mg Documented by: [id number] Admin: 10/03/20 11:47 Dose: 100 mg Documented by: [id number] Admin: 10/03/20 00:43 Dose: Not Given Documented by: [id number] Admin: 10/02/20 21:34 Dose: 100 mg Documented by: [id number] Admin: 10/02/20 15:51 Dose: 100 mg Documented by: [id number] Admin: 10/02/20 04:26 Dose: 100 mg Documented by: [id number] Admin: 10/01/20 21:35 Dose: 100 mg Documented by: [id number] Admin: 10/01/20 12:47 Dose: 100 mg Documented by: [id number] Admin: 10/01/20 03:52 Dose: 100 mg Documented by: [id number] Admin: 09/30/20 21:28 Dose: 100 mg Documented by: [id number] Admin: 09/30/20 12:45 Dose: 100 mg Documented by: [id number] Admin: 09/30/20 04:56 Dose: 100 mg Documented by: [id number] Admin: 09/29/20 21:06 Dose: 100 mg Documented by: [id number] Admin: 09/29/20 13:06 Dose: 100 mg Documented by: [id number] Admin: 09/29/20 04:55 Dose: 100 mg Documented by: [id number] Admin: 09/28/20 20:38 Dose: 100 mg Documented by: [id number] Admin: 09/28/20 12:01 Dose: 100 mg Documented by: [id number] Admin: 09/28/20 05:06 Dose: 100 mg Documented by: [id number] Admin: 09/27/20 21:16 Dose: 100 mg Documented by: [id number] Admin: 09/27/20 12:25 Dose: 100 mg Documented by: [id number] Admin: 09/27/20 06:02 Dose: 100 mg Documented by: [id number] Admin: 09/26/20 19:35 Dose: 100 mg Documented by: [id number] Admin: 09/26/20 11:34 Dose: 100 mg Documented by: [id number] Admin: 09/26/20 05:43 Dose: 100 mg Documented by: [id number] Admin: 09/25/20 20:22 Dose: 100 mg Documented by: [id number] Sodium Chloride (Nss 1000ml) 500 mls @ 999 mls/hr IV .Q31M ONE Stop: 09/21/20 21:07 Last Infusion: 09/21/20 22:33 Dose: 0 mls/hr Documented by: [id number] Admin: 09/21/20 21:30 Dose: 999 mls/hr Documented by: [id number] Dexamethasone 6 mg/ Syringe 1.5 mls @ 1 mls/min IV DAILY [facility] Stop: 10/02/20 08:59 Last Admin: 10/01/20 08:26 Dose: 1 mls/min Documented by: [id number] Admin: 09/30/20 07:50 Dose: 1 mls/min Documented by: [id number] Admin: 09/29/20 07:22 Dose: 1 mls/min Documented by: [id number] Admin: 09/28/20 08:18 Dose: 1 mls/min Documented by: [id number] Admin: 09/27/20 09:03 Dose: 1 mls/min Documented by: [id number] Admin: 09/26/20 09:41 Dose: 1 mls/min Documented by: [id number] Admin: 09/25/20 09:20 Dose: 1 mls/min Documented by: [id number] Admin: 09/24/20 07:45 Dose: 1 mls/min Documented by: [id number] Admin: 09/23/20 08:33 Dose: 1 mls/min Documented by: [id number] Admin: 09/22/20 09:07 Dose: 1 mls/min Documented by: [id number] Famotidine 20 mg/ Syringe 5 mls @ 2.5 mls/min IV BID MATHIEU Stop: 10/22/20 08:59 Last Admin: 10/02/20 08:57 Dose: 2.5 mls/min Documented by: [id number] Admin: 10/01/20 21:32 Dose: 2.5 mls/min Documented by: [id number] Admin: 10/01/20 08:30 Dose: 2.5 mls/min Documented by: [id number] Admin: 09/30/20 21:24 Dose: 2.5 mls/min Documented by: [id number] Admin: 09/30/20 07:48 Dose: 2.5 mls/min Documented by: [id number] Admin: 09/29/20 21:31 Dose: 2.5 mls/min Documented by: [id number] Admin: 09/29/20 13:05 Dose: 2.5 mls/min Documented by: [id number] Admin: 09/28/20 20:38 Dose: 2.5 mls/min Documented by: [id number] Admin: 09/28/20 08:17 Dose: 2.5 mls/min Documented by: [id number] Admin: 09/27/20 21:17 Dose: 2.5 mls/min Documented by: [id number] Admin: 09/27/20 09:01 Dose: 2.5 mls/min Documented by: [id number] Admin: 09/26/20 19:36 Dose: 2.5 mls/min Documented by: [id number] Admin: 09/26/20 09:41 Dose: 2.5 mls/min Documented by: [id number] Admin: 09/25/20 20:41 Dose: 2.5 mls/min Documented by: [id number] Admin: 09/25/20 09:19 Dose: 2.5 mls/min Documented by: [id number] Admin: 09/24/20 19:56 Dose: 2.5 mls/min Documented by: [id number] Admin: 09/24/20 08:03 Dose: 2.5 mls/min Documented by: [id number] Admin: 09/23/20 23:52 Dose: 2.5 mls/min Documented by: [id number] Admin: 09/23/20 08:33 Dose: 2.5 mls/min Documented by: [id number] Admin: 09/22/20 22:25 Dose: 2.5 mls/min Documented by: [id number] Admin: 09/22/20 09:08 Dose: 2.5 mls/min Documented by: [id number] Furosemide 40 mg/ Syringe 4 mls @ 4 mls/min IV NOW ONE Stop: 09/22/20 10:01 Last Admin: 09/22/20 11:08 Dose: 4 mls/min Documented by: [id number] Lorazepam (Ativan) 0.25 mg in 0.5 mls @ 0.5 mls/min IV NOW STA Stop: 09/23/20 12:50 Last Admin: 09/23/20 16:09 Dose: Not Given Documented by: [id number] Lorazepam (Ativan) 0.5 mg in 1 mls @ 1 mls/min IV Q8 PRN PRN Reason: Agitation Stop: 10/23/20 17:46 Last Admin: 09/24/20 01:05 Dose: 1 mls/min Documented by: [id number] Lorazepam (Ativan) 1 mg in 2 mls @ 2 mls/min IV NOW STA Stop: 09/24/20 03:29 Last Admin: 09/24/20 04:26 Dose: Not Given Documented by: [id number] Lorazepam (Ativan) 2 mg in 4 mls @ 4 mls/min IV NOW STA Stop: 09/24/20 04:05 Last Admin: 09/24/20 04:15 Dose: 4 mls/min Documented by: [id number] Dexmedetomidine HCl 200 mcg/ (Sodium Chloride) 50 mls @ 35.945 mls/hr IV .[id number] MATHIEU; Protocol Stop: 09/28/20 04:29 Last Admin: 09/24/20 11:05 Dose: Not Given Documented by: [id number] Admin: 09/24/20 09:14 Dose: Not Given Documented by: [id number] Titration: 09/24/20 09:13 Dose: 0 mcg/kg/hr, 0 mls/hr Documented by: [id number] Titration: 09/24/20 08:04 Dose: 1.3 mcg/kg/hr, 35.9 mls/hr Documented by: [id number] Titration: 09/24/20 07:44 Dose: 1.2 mcg/kg/hr, 33.2 mls/hr Documented by: [id number] Admin: 09/24/20 07:28 Dose: 1 mcg/kg/hr, 27.7 mls/hr Documented by: [id number] Cosigned by: [id number] Titration: 09/24/20 07:28 Dose: 1 mcg/kg/hr, 27.7 mls/hr Documented by: [id number] Cosigned by: [id number] Titration: 09/24/20 07:25 Dose: 1 mcg/kg/hr, 27.7 mls/hr Documented by: [id number] Cosigned by: [id number] Titration: 09/24/20 06:30 Dose: 0.6 mcg/kg/hr, 16.6 mls/hr Documented by: [id number] Titration: 09/24/20 06:00 Dose: 0.5 mcg/kg/hr, 13.8 mls/hr Documented by: [id number] Titration: 09/24/20 05:35 Dose: 0.4 mcg/kg/hr, 11.1 mls/hr Documented by: [id number] Titration: 09/24/20 05:20 Dose: 0.3 mcg/kg/hr, 8.3 mls/hr Documented by: [id number] Admin: 09/24/20 05:03 Dose: 0.2 mcg/kg/hr, 5.5 mls/hr Documented by: [id number] Cosigned by: [id number] Acetaminophen (Ofirmev) 1,000 mg in 100 mls @ 400 mls/hr IV NOW STA Stop: 09/24/20 05:41 Last Infusion: 09/24/20 05:48 Dose: 0 mls/hr Documented by: [id number] Admin: 09/24/20 05:34 Dose: 400 mls/hr Documented by: [id number] Thiamine HCl 100 mg/ Syringe 10 mls @ 2 mls/min IV QAM [facility] Stop: 10/24/20 08:59 Last Admin: 10/02/20 08:55 Dose: 2 mls/min Documented by: [id number] Admin: 10/01/20 08:26 Dose: 2 mls/min Documented by: [id number] Admin: 09/30/20 07:50 Dose: 2 mls/min Documented by: [id number] Admin: 09/29/20 07:22 Dose: 2 mls/min Documented by: [id number] Admin: 09/28/20 08:17 Dose: 2 mls/min Documented by: [id number] Admin: 09/27/20 09:02 Dose: 2 mls/min Documented by: [id number] Admin: 09/26/20 09:41 Dose: 2 mls/min Documented by: [id number] Admin: 09/25/20 09:20 Dose: 2 mls/min Documented by: [id number] Admin: 09/24/20 08:00 Dose: 2 mls/min Documented by: [id number] Dexmedetomidine HCl 400 mcg/ (Sodium Chloride) 100 mls @ 35.945 mls/hr IV .Q2H47M [facility]; Protocol Stop: 09/28/20 08:14 Last Titration: 09/24/20 11:05 Dose: 0 mcg/kg/hr, 0 mls/hr Documented by: [id number] Admin: 09/24/20 09:11 Dose: 1.3 mcg/kg/hr, 35.9 mls/hr Documented by: [id number] Cosigned by: [id number] Dexmedetomidine HCl 400 mcg/ (Sodium Chloride) 100 mls @ 0 mls/hr IV .Q0M [facility]; Protocol Stop: 09/28/20 08:14 Last Titration: 09/26/20 11:22 Dose: 0 mcg/kg/hr, 0 mls/hr Documented by: [id number] Admin: 09/25/20 19:14 Dose: Not Given Documented by: [id number] Admin: 09/25/20 16:49 Dose: Not Given Documented by: [id number] Titration: 09/25/20 16:49 Dose: 0 mcg/kg/hr, 0 mls/hr Documented by: [id number] Titration: 09/25/20 15:39 Dose: 1.5 mcg/kg/hr, 41.5 mls/hr Documented by: [id number] Admin: 09/25/20 15:22 Dose: 1.2 mcg/kg/hr, 33.2 mls/hr Documented by: [id number] Cosigned by: [id number] Titration: 09/25/20 15:18 Dose: 1.2 mcg/kg/hr, 33.2 mls/hr Documented by: [id number] Titration: 09/25/20 14:45 Dose: 1.1 mcg/kg/hr, 30.4 mls/hr Documented by: [id number] Titration: 09/25/20 14:33 Dose: 1.2 mcg/kg/hr, 33.2 mls/hr Documented by: [id number] Titration: 09/25/20 14:30 Dose: 1.3 mcg/kg/hr, 35.9 mls/hr Documented by: [id number] Titration: 09/25/20 14:00 Dose: 1.4 mcg/kg/hr, 38.7 mls/hr Documented by: [id number] Admin: 09/25/20 13:48 Dose: Not Given Documented by: [id number] Titration: 09/25/20 13:06 Dose: 1.5 mcg/kg/hr, 41.5 mls/hr Documented by: [id number] Admin: 09/25/20 12:34 Dose: 1.4 mcg/kg/hr, 38.7 mls/hr Documented by: [id number] Cosigned by: [id number] Titration: 09/25/20 12:34 Dose: 1.4 mcg/kg/hr, 38.7 mls/hr Documented by: [id number] Admin: 09/25/20 11:50 Dose: Not Given Documented by: [id number] Titration: 09/25/20 11:50 Dose: 1.3 mcg/kg/hr, 35.9 mls/hr Documented by: [id number] Admin: 09/25/20 11:50 Dose: Not Given Documented by: [id number] Admin: 09/25/20 11:50 Dose: Not Given Documented by: [id number] Admin: 09/25/20 11:49 Dose: Not Given Documented by: [id number] Titration: 09/25/20 10:59 Dose: 1.2 mcg/kg/hr, 33.2 mls/hr Documented by: [id number] Titration: 09/25/20 10:40 Dose: 1.3 mcg/kg/hr, 35.9 mls/hr Documented by: [id number] Admin: 09/25/20 09:36 Dose: 1.5 mcg/kg/hr, 41.5 mls/hr Documented by: [id number] Cosigned by: [id number] Titration: 09/25/20 09:26 Dose: 1.5 mcg/kg/hr, 41.5 mls/hr Documented by: [id number] Cosigned by: [id number] Admin: 09/25/20 07:01 Dose: 1.5 mcg/kg/hr, 41.5 mls/hr Documented by: [id number] Cosigned by: [id number] Titration: 09/25/20 07:01 Dose: 1.5 mcg/kg/hr, 41.5 mls/hr Documented by: [id number] Cosigned by: [id number] Admin: 09/25/20 04:55 Dose: 1.5 mcg/kg/hr, 41.5 mls/hr Documented by: [id number] Cosigned by: [id number] Titration: 09/25/20 04:08 Dose: 1.5 mcg/kg/hr, 41.5 mls/hr Documented by: [id number] Cosigned by: [id number] Admin: 09/25/20 01:47 Dose: Not Given Documented by: [id number] Admin: 09/25/20 01:46 Dose: Not Given Documented by: [id number] Admin: 09/25/20 01:46 Dose: Not Given Documented by: [id number] Titration: 09/25/20 01:43 Dose: 1.5 mcg/kg/hr, 41.5 mls/hr Documented by: [id number] Cosigned by: [id number] Admin: 09/25/20 01:43 Dose: 1.5 mcg/kg/hr, 41.5 mls/hr Documented by: [id number] Cosigned by: [id number] Admin: 09/25/20 00:09 Dose: 1.5 mcg/kg/hr, 41.5 mls/hr Documented by: [id number] Cosigned by: [id number] Titration: 09/24/20 22:20 Dose: 1 mcg/kg/hr, 27.7 mls/hr Documented by: [id number] Cosigned by: [id number] Titration: 09/24/20 19:05 Dose: 1 mcg/kg/hr, 27.7 mls/hr Documented by: [id number] Cosigned by: [id number] Admin: 09/24/20 18:43 Dose: 1 mcg/kg/hr, 27.7 mls/hr Documented by: [id number] Cosigned by: [id number] Titration: 09/24/20 18:40 Dose: 1.1 mcg/kg/hr, 30.4 mls/hr Documented by: [id number] Cosigned by: [id number] Titration: 09/24/20 18:38 Dose: 1.1 mcg/kg/hr, 30.4 mls/hr Documented by: [id number] Titration: 09/24/20 17:00 Dose: 1.2 mcg/kg/hr, 33.2 mls/hr Documented by: [id number] Admin: 09/24/20 15:45 Dose: 1.3 mcg/kg/hr, 35.9 mls/hr Documented by: [id number] Cosigned by: [id number] Titration: 09/24/20 15:45 Dose: 1.3 mcg/kg/hr, 35.9 mls/hr Documented by: [id number] Cosigned by: [id number] Admin: 09/24/20 13:04 Dose: 1.3 mcg/kg/hr, 35.9 mls/hr Documented by: [id number] Cosigned by: [id number] Titration: 09/24/20 12:02 Dose: 1.3 mcg/kg/hr, 35.9 mls/hr Documented by: [id number] Cosigned by: [id number] Admin: 09/24/20 09:14 Dose: 1.3 mcg/kg/hr, 35.9 mls/hr Documented by: [id number] Cosigned by: [id number] Acetaminophen (Ofirmev) 1,000 mg in 100 mls @ 400 mls/hr IV Q8H PRN PRN Reason: Fever or headache Stop: 09/27/20 09:00 Last Infusion: 09/26/20 05:43 Dose: 0 mls/hr Documented by: [id number] Admin: 09/26/20 05:15 Dose: 400 mls/hr Documented by: [id number] Lorazepam (Ativan) 2 mg in 4 mls @ 4 mls/min IV Q6 [facility] Stop: 10/24/20 11:59 Last Admin: 09/24/20 11:38 Dose: 4 mls/min Documented by: [id number] Lorazepam (Ativan) 2 mg in 4 mls @ 4 mls/min IV Q8 [facility] Stop: 10/24/20 21:59 Last Admin: 09/26/20 05:13 Dose: Not Given Documented by: [id number] Admin: 09/25/20 21:00 Dose: 4 mls/min Documented by: [id number] Admin: 09/25/20 14:32 Dose: 4 mls/min Documented by: [id number] Admin: 09/25/20 04:57 Dose: 4 mls/min Documented by: [id number] Admin: 09/24/20 22:03 Dose: 4 mls/min Documented by: [id number] Furosemide 20 mg/ Syringe 2 mls @ 4 mls/min IV DAILY [facility] Stop: 10/25/20 08:59 Last Admin: 09/25/20 09:25 Dose: 4 mls/min Documented by: [id number] Lorazepam (Ativan) 2 mg in 4 mls @ 4 mls/min IV NOW STA Stop: 09/25/20 16:00 Last Admin: 09/25/20 16:10 Dose: 4 mls/min Documented by: [id number] Propofol (Diprivan) 1,000 mg in 100 mls @ 10.486 mls/hr IV .Q9H33M [facility]; Protocol Stop: 09/28/20 16:44 Last Titration: 09/28/20 20:28 Dose: 15.26 mcg/kg/min, 10 mls/hr Documented by: [id number] Titration: 09/28/20 18:53 Dose: 15.26 mcg/kg/min, 10 mls/hr Documented by: [id number] Cosigned by: [id number] Admin: 09/28/20 10:28 Dose: 15.26 mcg/kg/min, 10 mls/hr Documented by: [id number] Cosigned by: [id number] Titration: 09/28/20 10:28 Dose: 15.26 mcg/kg/min, 10 mls/hr Documented by: [id number] Cosigned by: [id number] Admin: 09/28/20 07:12 Dose: Not Given Documented by: [id number] Admin: 09/28/20 07:11 Dose: Not Given Documented by: [id number] Titration: 09/28/20 07:02 Dose: 15.26 mcg/kg/min, 10 mls/hr Documented by: [id number] Cosigned by: [id number] Admin: 09/28/20 01:19 Dose: 15.26 mcg/kg/min, 10 mls/hr Documented by: [id number] Cosigned by: [id number] Titration: 09/28/20 01:18 Dose: 0 mcg/kg/min, 0 mls/hr Documented by: [id number] Admin: 09/27/20 17:36 Dose: Not Given Documented by: [id number] Admin: 09/27/20 16:55 Dose: Not Given Documented by: [id number] Titration: 09/27/20 16:51 Dose: 15 mcg/kg/min, 9.8 mls/hr Documented by: [id number] Admin: 09/27/20 16:45 Dose: 20 mcg/kg/min, 13.1 mls/hr Documented by: [id number] Cosigned by: [id number] Titration: 09/27/20 16:45 Dose: 20 mcg/kg/min, 13.1 mls/hr Documented by: [id number] Cosigned by: [id number] Admin: 09/27/20 10:43 Dose: Not Given Documented by: [id number] Admin: 09/27/20 09:46 Dose: Not Given Documented by: [id number] Titration: 09/27/20 09:24 Dose: 20 mcg/kg/min, 13.1 mls/hr Documented by: [id number] Admin: 09/27/20 09:15 Dose: 15 mcg/kg/min, 9.8 mls/hr Documented by: [id number] Cosigned by: [id number] Titration: 09/27/20 09:15 Dose: 15 mcg/kg/min, 9.8 mls/hr Documented by: [id number] Cosigned by: [id number] Admin: 09/27/20 01:57 Dose: 15 mcg/kg/min, 9.8 mls/hr Documented by: [id number] Cosigned by: [id number] Titration: 09/27/20 01:57 Dose: 15 mcg/kg/min, 9.8 mls/hr Documented by: [id number] Cosigned by: [id number] Admin: 09/26/20 18:16 Dose: Not Given Documented by: [id number] Titration: 09/26/20 18:13 Dose: 15 mcg/kg/min, 9.8 mls/hr Documented by: [id number] Admin: 09/26/20 17:14 Dose: 20 mcg/kg/min, 13.1 mls/hr Documented by: [id number] Cosigned by: [id number] Titration: 09/26/20 17:05 Dose: 20 mcg/kg/min, 13.1 mls/hr Documented by: [id number] Cosigned by: [id number] Admin: 09/26/20 11:42 Dose: Not Given Documented by: [id number] Titration: 09/26/20 10:45 Dose: 20 mcg/kg/min, 13.1 mls/hr Documented by: [id number] Admin: 09/26/20 09:55 Dose: Not Given Documented by: [id number] Titration: 09/26/20 09:55 Dose: 30 mcg/kg/min, 19.7 mls/hr Documented by: [id number] Titration: 09/26/20 09:53 Dose: 40 mcg/kg/min, 26.2 mls/hr Documented by: [id number] Cosigned by: [id number] Admin: 09/26/20 09:53 Dose: 35 mcg/kg/min, 22.9 mls/hr Documented by: [id number] Cosigned by: [id number] Titration: 09/26/20 09:39 Dose: 40 mcg/kg/min, 26.2 mls/hr Documented by: [id number] Admin: 09/26/20 06:51 Dose: 50 mcg/kg/min, 32.8 mls/hr Documented by: [id number] Cosigned by: [id number] Titration: 09/26/20 06:51 Dose: 50 mcg/kg/min, 32.8 mls/hr Documented by: [id number] Cosigned by: [id number] Admin: 09/26/20 04:04 Dose: 50 mcg/kg/min, 32.8 mls/hr Documented by: [id number] Cosigned by: [id number] Titration: 09/26/20 04:04 Dose: 50 mcg/kg/min, 32.8 mls/hr Documented by: [id number] Cosigned by: [id number] Admin: 09/26/20 00:38 Dose: 50 mcg/kg/min, 32.8 mls/hr Documented by: [id number] Cosigned by: [id number] Titration: 09/26/20 00:04 Dose: 50 mcg/kg/min, 32.8 mls/hr Documented by: [id number] Cosigned by: [id number] Admin: 09/25/20 21:01 Dose: 50 mcg/kg/min, 32.8 mls/hr Documented by: [id number] Cosigned by: [id number] Titration: 09/25/20 21:01 Dose: 50 mcg/kg/min, 32.8 mls/hr Documented by: [id number] Cosigned by: [id number] Titration: 09/25/20 21:00 Dose: 50 mcg/kg/min, 32.8 mls/hr Documented by: [id number] Cosigned by: [id number] Titration: 09/25/20 19:59 Dose: 30 mcg/kg/min, 19.7 mls/hr Documented by: [id number] Titration: 09/25/20 19:17 Dose: 10 mcg/kg/min, 6.6 mls/hr Documented by: [id number] Admin: 09/25/20 16:48 Dose: 20 mcg/kg/min, 13.1 mls/hr Documented by: [id number] Cosigned by: [id number] Fentanyl Citrate (Fentanyl Drip) 1,250 mcg in 250 mls @ 30 mls/hr IV .Q8H20M [facility]; Protocol Stop: 09/26/20 15:30 Last Titration: 09/26/20 23:16 Dose: 0 mcg/hr, 0 mls/hr Documented by: [id number] Cosigned by: [id number] Admin: 09/26/20 14:03 Dose: 150 mcg/hr, 30 mls/hr Documented by: [id number] Cosigned by: [id number] Titration: 09/26/20 13:33 Dose: 150 mcg/hr, 30 mls/hr Documented by: [id number] Cosigned by: [id number] Admin: 09/26/20 09:40 Dose: Not Given Documented by: [id number] Admin: 09/26/20 05:13 Dose: 150 mcg/hr, 30 mls/hr Documented by: [id number] Cosigned by: [id number] Titration: 09/26/20 03:06 Dose: 300 mcg/hr, 60 mls/hr Documented by: [id number] Cosigned by: [id number] Admin: 09/25/20 22:55 Dose: 300 mcg/hr, 60 mls/hr Documented by: [id number] Cosigned by: [id number] Titration: 09/25/20 22:55 Dose: 300 mcg/hr, 60 mls/hr Documented by: [id number] Cosigned by: [id number] Titration: 09/25/20 19:59 Dose: 300 mcg/hr, 60 mls/hr Documented by: [id number] Cosigned by: [id number] Admin: 09/25/20 16:47 Dose: 25 mcg/hr, 5 mls/hr Documented by: [id number] Cosigned by: [id number] Midazolam HCl (Versed) 125 mg in 250 mls @ 0 mls/hr IV .Q0M [facility]; Protocol Stop: 10/26/20 00:29 Last Titration: 09/27/20 11:12 Dose: 0 mg/hr, 0 mls/hr Documented by: [id number] Cosigned by: [id number] Titration: 09/26/20 15:07 Dose: 0 mg/hr, 0 mls/hr Documented by: [id number] Cosigned by: [id number] Titration: 09/26/20 13:55 Dose: 1 mg/hr, 2 mls/hr Documented by: [id number] Cosigned by: [id number] Titration: 09/26/20 12:57 Dose: 2 mg/hr, 4 mls/hr Documented by: [id number] Cosigned by: [id number] Titration: 09/26/20 01:20 Dose: 4 mg/hr, 8 mls/hr Documented by: [id number] Cosigned by: [id number] Admin: 09/26/20 00:45 Dose: 2 mg/hr, 4 mls/hr Documented by: [id number] Cosigned by: [id number] Norepinephrine Bitartrate (Levophed/D5w) 8 mg in 508 mls @ 20.807 mls/hr IV .Q24H [facility]; Protocol Stop: 10/26/20 02:29 Last Admin: 10/02/20 11:33 Dose: Not Given Documented by: [id number] Titration: 10/02/20 11:11 Dose: 0 mcg/kg/min, 0 mls/hr Documented by: [id number] Admin: 10/01/20 17:34 Dose: Not Given Documented by: [id number] Titration: 10/01/20 10:26 Dose: 0 mcg/kg/min, 0 mls/hr Documented by: [id number] Titration: 09/30/20 18:50 Dose: 0.02 mcg/kg/min, 8.3 mls/hr Documented by: [id number] Cosigned by: [id number] Titration: 09/30/20 12:49 Dose: 0.02 mcg/kg/min, 8.3 mls/hr Documented by: [id number] Titration: 09/30/20 10:56 Dose: 0.03 mcg/kg/min, 12.5 mls/hr Documented by: [id number] Admin: 09/30/20 10:28 Dose: 0.05 mcg/kg/min, 20.8 mls/hr Documented by: [id number] Cosigned by: [id number] Admin: 09/29/20 04:52 Dose: Not Given Documented by: [id number] Titration: 09/28/20 11:37 Dose: 0 mcg/kg/min, 0 mls/hr Documented by: [id number] Titration: 09/28/20 08:38 Dose: 0 mcg/kg/min, 0 mls/hr Documented by: [id number] Titration: 09/28/20 07:03 Dose: 0.01 mcg/kg/min, 4.2 mls/hr Documented by: [id number] Cosigned by: [id number] Titration: 09/27/20 17:16 Dose: 0.02 mcg/kg/min, 8.3 mls/hr Documented by: [id number] Titration: 09/27/20 16:51 Dose: 0.01 mcg/kg/min, 4.2 mls/hr Documented by: [id number] Titration: 09/27/20 15:25 Dose: 0.02 mcg/kg/min, 8.3 mls/hr Documented by: [id number] Admin: 09/27/20 14:20 Dose: 0.03 mcg/kg/min, 12.5 mls/hr Documented by: [id number] Cosigned by: [id number] Titration: 09/27/20 14:20 Dose: 0.03 mcg/kg/min, 12.5 mls/hr Documented by: [id number] Cosigned by: [id number] Titration: 09/27/20 13:15 Dose: 0.03 mcg/kg/min, 12.5 mls/hr Documented by: [id number] Titration: 09/27/20 12:48 Dose: 0.02 mcg/kg/min, 8.3 mls/hr Documented by: [id number] Titration: 09/27/20 12:31 Dose: 0.04 mcg/kg/min, 16.6 mls/hr Documented by: [id number] Titration: 09/27/20 09:52 Dose: 0.02 mcg/kg/min, 8.3 mls/hr Documented by: [id number] Titration: 09/27/20 09:06 Dose: 0.04 mcg/kg/min, 16.6 mls/hr Documented by: [id number] Admin: 09/27/20 07:18 Dose: Not Given Documented by: [id number] Titration: 09/27/20 06:29 Dose: 0.02 mcg/kg/min, 8.3 mls/hr Documented by: [id number] Titration: 09/27/20 06:07 Dose: 0 mcg/kg/min, 0 mls/hr Documented by: [id number] Titration: 09/26/20 18:15 Dose: 0.03 mcg/kg/min, 12.5 mls/hr Documented by: [id number] Titration: 09/26/20 16:25 Dose: 0.06 mcg/kg/min, 25 mls/hr Documented by: [id number] Titration: 09/26/20 15:50 Dose: 0.06 mcg/kg/min, 25 mls/hr Documented by: [id number] Titration: 09/26/20 15:30 Dose: 0.05 mcg/kg/min, 20.8 mls/hr Documented by: [id number] Titration: 09/26/20 15:07 Dose: 0.03 mcg/kg/min, 12.5 mls/hr Documented by: [id number] Titration: 09/26/20 12:41 Dose: 0.05 mcg/kg/min, 20.8 mls/hr Documented by: [id number] Titration: 09/26/20 12:29 Dose: 0.04 mcg/kg/min, 16.6 mls/hr Documented by: [id number] Titration: 09/26/20 11:07 Dose: 0.02 mcg/kg/min, 8.3 mls/hr Documented by: [id number] Titration: 09/26/20 07:00 Dose: 0.04 mcg/kg/min, 16.6 mls/hr Documented by: [id number] Titration: 09/26/20 05:14 Dose: 0.02 mcg/kg/min, 8.3 mls/hr Documented by: [id number] Admin: 09/26/20 02:34 Dose: 0.04 mcg/kg/min, 16.6 mls/hr Documented by: [id number] Cosigned by: [id number] Ketamine HCl (Ketalar / Nss) 500 mg in 500 mls @ 10.71 mls/hr IV .Q24H [facility]; Protocol Stop: 10/26/20 10:59 Last Admin: 09/28/20 11:37 Dose: Not Given Documented by: [id number] Titration: 09/28/20 11:36 Dose: 0 mg/kg/hr, 0 mls/hr Documented by: [id number] Admin: 09/27/20 11:05 Dose: Not Given Documented by: [id number] Titration: 09/27/20 09:24 Dose: 0 mg/kg/hr, 0 mls/hr Documented by: [id number] Titration: 09/26/20 12:56 Dose: 0.1 mg/kg/hr, 10.7 mls/hr Documented by: [id number] Titration: 09/26/20 12:56 Dose: 0.2 mg/kg/hr, 21.4 mls/hr Documented by: [id number] Admin: 09/26/20 11:34 Dose: 0.1 mg/kg/hr, 10.7 mls/hr Documented by: [id number] Cosigned by: [id number] Ceftriaxone Sodium 2,000 mg/ (Dextrose) 70 mls @ 100 mls/hr IV DAILY@1200 [facility]; Protocol Stop: 10/03/20 14:29 Last Infusion: 09/29/20 13:47 Dose: 0 mls/hr Documented by: [id number] Admin: 09/29/20 13:05 Dose: 100 mls/hr Documented by: [id number] Infusion: 09/28/20 12:41 Dose: 0 mls/hr Documented by: [id number] Admin: 09/28/20 11:59 Dose: 100 mls/hr Documented by: [id number] Infusion: 09/27/20 14:21 Dose: 0 mls/hr Documented by: [id number] Admin: 09/27/20 12:48 Dose: 100 mls/hr Documented by: [id number] Infusion: 09/26/20 16:55 Dose: 0 mls/hr Documented by: [id number] Admin: 09/26/20 15:06 Dose: 100 mls/hr Documented by: [id number] Fentanyl Citrate (Fentanyl Citrate) 2,500 mcg in 250 mls @ 15 mls/hr IV .[id number] [facility]; Protocol Stop: 10/10/20 15:29 Last Titration: 10/06/20 15:42 Dose: 0 mcg/hr, 0 mls/hr Documented by: [id number] Cosigned by: [id number] Titration: 10/06/20 15:40 Dose: 0 mcg/hr, 0 mls/hr Documented by: [id number] Cosigned by: [id number] Titration: 10/06/20 07:08 Dose: 125 mcg/hr, 12.5 mls/hr Documented by: [id number] Cosigned by: [id number] Titration: 10/06/20 01:12 Dose: 125 mcg/hr, 12.5 mls/hr Documented by: [id number] Cosigned by: [id number] Admin: 10/05/20 21:18 Dose: 100 mcg/hr, 10 mls/hr Documented by: [id number] Cosigned by: [id number] Titration: 10/05/20 21:18 Dose: 100 mcg/hr, 10 mls/hr Documented by: [id number] Cosigned by: [id number] Titration: 10/05/20 19:04 Dose: 100 mcg/hr, 10 mls/hr Documented by: [id number] Cosigned by: [id number] Admin: 10/05/20 19:03 Dose: Not Given Documented by: [id number] Titration: 10/05/20 07:23 Dose: 100 mcg/hr, 10 mls/hr Documented by: [id number] Cosigned by: [id number] Admin: 10/05/20 00:51 Dose: 75 mcg/hr, 7.5 mls/hr Documented by: [id number] Cosigned by: [id number] Titration: 10/05/20 00:51 Dose: 50 mcg/hr, 5 mls/hr Documented by: [id number] Cosigned by: [id number] Titration: 10/04/20 19:27 Dose: 50 mcg/hr, 5 mls/hr Documented by: [id number] Cosigned by: [id number] Titration: 10/04/20 18:59 Dose: 75 mcg/hr, 7.5 mls/hr Documented by: [id number] Cosigned by: [id number] Titration: 10/04/20 07:13 Dose: 100 mcg/hr, 10 mls/hr Documented by: [id number] Cosigned by: [id number] Admin: 10/03/20 23:49 Dose: 100 mcg/hr, 10 mls/hr Documented by: [id number] Cosigned by: [id number] Titration: 10/03/20 23:49 Dose: 100 mcg/hr, 10 mls/hr Documented by: [id number] Cosigned by: [id number] Titration: 10/03/20 07:13 Dose: 100 mcg/hr, 10 mls/hr Documented by: [id number] Cosigned by: [id number] Titration: 10/03/20 06:50 Dose: 100 mcg/hr, 10 mls/hr Documented by: [id number] Cosigned by: [id number] Titration: 10/03/20 06:27 Dose: 50 mcg/hr, 5 mls/hr Documented by: [id number] Cosigned by: [id number] Titration: 10/03/20 02:12 Dose: 100 mcg/hr, 10 mls/hr Documented by: [id number] Cosigned by: [id number] Admin: 10/03/20 00:43 Dose: 75 mcg/hr, 7.5 mls/hr Documented by: [id number] Cosigned by: [id number] Admin: 10/02/20 23:48 Dose: Not Given Documented by: [id number] Titration: 10/02/20 23:23 Dose: 75 mcg/hr, 7.5 mls/hr Documented by: [id number] Cosigned by: [id number] Admin: 10/02/20 21:25 Dose: Not Given Documented by: [id number] Titration: 10/02/20 07:02 Dose: 75 mcg/hr, 7.5 mls/hr Documented by: [id number] Cosigned by: [id number] Titration: 10/01/20 19:06 Dose: 75 mcg/hr, 7.5 mls/hr Documented by: [id number] Cosigned by: [id number] Titration: 10/01/20 14:30 Dose: 100 mcg/hr, 10 mls/hr Documented by: [id number] Cosigned by: [id number] Admin: 10/01/20 14:07 Dose: 125 mcg/hr, 12.5 mls/hr Documented by: [id number] Cosigned by: [id number] Titration: 10/01/20 13:03 Dose: 125 mcg/hr, 12.5 mls/hr Documented by: [id number] Cosigned by: [id number] Titration: 09/30/20 18:51 Dose: 125 mcg/hr, 12.5 mls/hr Documented by: [id number] Cosigned by: [id number] Admin: 09/30/20 17:03 Dose: 125 mcg/hr, 12.5 mls/hr Documented by: [id number] Cosigned by: [id number] Titration: 09/30/20 15:06 Dose: 125 mcg/hr, 12.5 mls/hr Documented by: [id number] Cosigned by: [id number] Titration: 09/30/20 09:20 Dose: 125 mcg/hr, 12.5 mls/hr Documented by: [id number] Cosigned by: [id number] Titration: 09/30/20 07:12 Dose: 100 mcg/hr, 10 mls/hr Documented by: [id number] Cosigned by: [id number] Titration: 09/29/20 19:38 Dose: 100 mcg/hr, 10 mls/hr Documented by: [id number] Cosigned by: [id number] Titration: 09/29/20 19:07 Dose: 50 mcg/hr, 5 mls/hr Documented by: [id number] Cosigned by: [id number] Titration: 09/29/20 13:27 Dose: 25 mcg/hr, 2.5 mls/hr Documented by: [id number] Cosigned by: [id number] Titration: 09/29/20 10:12 Dose: 50 mcg/hr, 5 mls/hr Documented by: [id number] Cosigned by: [id number] Admin: 09/29/20 09:24 Dose: 100 mcg/hr, 10 mls/hr Documented by: [id number] Cosigned by: [id number] Titration: 09/29/20 08:57 Dose: 100 mcg/hr, 10 mls/hr Documented by: [id number] Cosigned by: [id number] Titration: 09/29/20 06:50 Dose: 100 mcg/hr, 10 mls/hr Documented by: [id number] Cosigned by: [id number] Titration: 09/28/20 18:52 Dose: 100 mcg/hr, 10 mls/hr Documented by: [id number] Cosigned by: [id number] Titration: 09/28/20 13:37 Dose: 100 mcg/hr, 10 mls/hr Documented by: [id number] Cosigned by: [id number] Titration: 09/28/20 10:00 Dose: 125 mcg/hr, 12.5 mls/hr Documented by: [id number] Cosigned by: [id number] Admin: 09/28/20 09:14 Dose: 150 mcg/hr, 15 mls/hr Documented by: [id number] Cosigned by: [id number] Titration: 09/28/20 07:59 Dose: 150 mcg/hr, 15 mls/hr Documented by: [id number] Cosigned by: [id number] Titration: 09/28/20 07:03 Dose: 150 mcg/hr, 15 mls/hr Documented by: [id number] Cosigned by: [id number] Titration: 09/27/20 17:16 Dose: 150 mcg/hr, 15 mls/hr Documented by: [id number] Cosigned by: [id number] Admin: 09/27/20 15:35 Dose: 175 mcg/hr, 17.5 mls/hr Documented by: [id number] Cosigned by: [id number] Titration: 09/27/20 15:35 Dose: 175 mcg/hr, 17.5 mls/hr Documented by: [id number] Cosigned by: [id number] Admin: 09/27/20 14:20 Dose: 175 mcg/hr, 17.5 mls/hr Documented by: [id number] Cosigned by: [id number] Titration: 09/27/20 14:20 Dose: 150 mcg/hr, 15 mls/hr Documented by: [id number] Cosigned by: [id number] Admin: 09/26/20 23:07 Dose: 150 mcg/hr, 15 mls/hr Documented by: [id number] Cosigned by: [id number] Acetaminophen (Ofirmev) 1,000 mg in 100 mls @ 400 mls/hr IV Q8H PRN PRN Reason: Fever or headache Stop: 09/30/20 10:37 Last Infusion: 09/30/20 08:39 Dose: 0 mls/hr Documented by: [id number] Admin: 09/30/20 08:24 Dose: 400 mls/hr Documented by: [id number] Infusion: 09/29/20 18:36 Dose: 0 mls/hr Documented by: [id number] Infusion: 09/29/20 18:28 Dose: 0 mls/hr Documented by: [id number] Admin: 09/29/20 18:10 Dose: 400 mls/hr Documented by: [id number] Infusion: 09/29/20 07:37 Dose: 0 mls/hr Documented by: [id number] Admin: 09/29/20 07:20 Dose: 400 mls/hr Documented by: [id number] Infusion: 09/28/20 23:29 Dose: 0 mls/hr Documented by: [id number] Admin: 09/28/20 23:14 Dose: 400 mls/hr Documented by: [id number] Infusion: 09/28/20 14:11 Dose: 0 mls/hr Documented by: [id number] Admin: 09/28/20 13:56 Dose: 400 mls/hr Documented by: [id number] Potassium Phosphate 15 mmol/ (Sodium Chloride) 255 mls @ 88 mls/hr IV ONE ONE Stop: 09/28/20 11:53 Last Infusion: 09/28/20 12:08 Dose: 0 mls/hr Documented by: [id number] Admin: 09/28/20 09:14 Dose: 88 mls/hr Documented by: [id number] Propofol (Diprivan) 1,000 mg in 100 mls @ 0 mls/hr IV .Q0M [facility]; Protocol Stop: 10/05/20 09:45 Last Admin: 10/04/20 13:32 Dose: Not Given Documented by: [id number] Admin: 10/04/20 13:32 Dose: Not Given Documented by: [id number] Admin: 10/04/20 13:25 Dose: Not Given Documented by: [id number] Admin: 10/04/20 13:24 Dose: Not Given Documented by: [id number] Admin: 10/04/20 06:14 Dose: Not Given Documented by: [id number] Admin: 10/03/20 22:46 Dose: Not Given Documented by: [id number] Admin: 10/03/20 19:14 Dose: Not Given Documented by: [id number] Titration: 10/03/20 12:04 Dose: 0 mcg/kg/min, 0 mls/hr Documented by: [id number] Titration: 10/03/20 07:13 Dose: 20 mcg/kg/min, 13.2 mls/hr Documented by: [id number] Cosigned by: [id number] Titration: 10/03/20 06:27 Dose: 0 mcg/kg/min, 0 mls/hr Documented by: [id number] Admin: 10/03/20 05:53 Dose: Not Given Documented by: [id number] Titration: 10/03/20 05:53 Dose: 20 mcg/kg/min, 13.2 mls/hr Documented by: [id number] Titration: 10/03/20 05:49 Dose: 10 mcg/kg/min, 6.6 mls/hr Documented by: [id number] Titration: 10/03/20 05:43 Dose: 20 mcg/kg/min, 13.2 mls/hr Documented by: [id number] Admin: 10/02/20 23:48 Dose: Not Given Documented by: [id number] Admin: 10/02/20 23:47 Dose: Not Given Documented by: [id number] Admin: 10/02/20 15:52 Dose: Not Given Documented by: [id number] Admin: 10/02/20 15:52 Dose: Not Given Documented by: [id number] Admin: 10/02/20 15:52 Dose: Not Given Documented by: [id number] Admin: 10/02/20 15:52 Dose: Not Given Documented by: [id number] Titration: 10/02/20 14:15 Dose: 0 mcg/kg/min, 0 mls/hr Documented by: [id number] Admin: 10/02/20 10:15 Dose: 25 mcg/kg/min, 16.5 mls/hr Documented by: [id number] Cosigned by: [id number] Titration: 10/02/20 10:15 Dose: 25 mcg/kg/min, 16.5 mls/hr Documented by: [id number] Cosigned by: [id number] Titration: 10/02/20 07:02 Dose: 25 mcg/kg/min, 16.5 mls/hr Documented by: [id number] Cosigned by: [id number] Admin: 10/02/20 04:15 Dose: 25 mcg/kg/min, 16.5 mls/hr Documented by: [id number] Cosigned by: [id number] Titration: 10/02/20 04:15 Dose: 20 mcg/kg/min, 13.2 mls/hr Documented by: [id number] Cosigned by: [id number] Admin: 10/01/20 21:03 Dose: 20 mcg/kg/min, 13.2 mls/hr Documented by: [id number] Cosigned by: [id number] Titration: 10/01/20 21:03 Dose: 20 mcg/kg/min, 13.2 mls/hr Documented by: [id number] Cosigned by: [id number] Titration: 10/01/20 19:06 Dose: 20 mcg/kg/min, 13.2 mls/hr Documented by: [id number] Cosigned by: [id number] Admin: 10/01/20 15:43 Dose: 25 mcg/kg/min, 16.5 mls/hr Documented by: [id number] Cosigned by: [id number] Titration: 10/01/20 15:23 Dose: 25 mcg/kg/min, 16.5 mls/hr Documented by: [id number] Cosigned by: [id number] Titration: 10/01/20 14:30 Dose: 25 mcg/kg/min, 16.5 mls/hr Documented by: [id number] Admin: 10/01/20 10:48 Dose: 35 mcg/kg/min, 23.1 mls/hr Documented by: [id number] Cosigned by: [id number] Titration: 10/01/20 10:26 Dose: 35 mcg/kg/min, 23.1 mls/hr Documented by: [id number] Cosigned by: [id number] Admin: 10/01/20 06:06 Dose: 35 mcg/kg/min, 23.1 mls/hr Documented by: [id number] Cosigned by: [id number] Titration: 10/01/20 06:06 Dose: 35 mcg/kg/min, 23.1 mls/hr Documented by: [id number] Cosigned by: [id number] Admin: 10/01/20 02:03 Dose: 35 mcg/kg/min, 23.1 mls/hr Documented by: [id number] Cosigned by: [id number] Titration: 10/01/20 01:50 Dose: 35 mcg/kg/min, 23.1 mls/hr Documented by: [id number] Cosigned by: [id number] Admin: 09/30/20 21:30 Dose: 35 mcg/kg/min, 23.1 mls/hr Documented by: [id number] Cosigned by: [id number] Titration: 09/30/20 21:24 Dose: 35 mcg/kg/min, 23.1 mls/hr Documented by: [id number] Cosigned by: [id number] Titration: 09/30/20 18:50 Dose: 35 mcg/kg/min, 23.1 mls/hr Documented by: [id number] Cosigned by: [id number] Admin: 09/30/20 17:04 Dose: 35 mcg/kg/min, 23.1 mls/hr Documented by: [id number] Cosigned by: [id number] Titration: 09/30/20 17:04 Dose: 35 mcg/kg/min, 23.1 mls/hr Documented by: [id number] Cosigned by: [id number] Admin: 09/30/20 12:45 Dose: 35 mcg/kg/min, 23.1 mls/hr Documented by: [id number] Cosigned by: [id number] Titration: 09/30/20 12:45 Dose: 35 mcg/kg/min, 23.1 mls/hr Documented by: [id number] Cosigned by: [id number] Admin: 09/30/20 10:54 Dose: Not Given Documented by: [id number] Titration: 09/30/20 09:30 Dose: 35 mcg/kg/min, 23.1 mls/hr Documented by: [id number] Titration: 09/30/20 09:30 Dose: 35 mcg/kg/min, 23.1 mls/hr Documented by: [id number] Titration: 09/30/20 09:20 Dose: 25 mcg/kg/min, 16.5 mls/hr Documented by: [id number] Admin: 09/30/20 08:23 Dose: 20.15 mcg/kg/min, 13.3 mls/hr Documented by: [id number] Cosigned by: [id number] Titration: 09/30/20 08:23 Dose: 20.15 mcg/kg/min, 13.3 mls/hr Documented by: [id number] Cosigned by: [id number] Titration: 09/30/20 07:11 Dose: 20.15 mcg/kg/min, 13.3 mls/hr Documented by: [id number] Cosigned by: [id number] Titration: 09/30/20 02:52 Dose: 20.15 mcg/kg/min, 13.3 mls/hr Documented by: [id number] Cosigned by: [id number] Admin: 09/30/20 02:52 Dose: 20.15 mcg/kg/min, 13.3 mls/hr Documented by: [id number] Cosigned by: [id number] Admin: 09/29/20 19:37 Dose: 20.15 mcg/kg/min, 13.3 mls/hr Documented by: [id number] Cosigned by: [id number] Titration: 09/29/20 19:37 Dose: 5 mcg/kg/min, 3.3 mls/hr Documented by: [id number] Cosigned by: [id number] Titration: 09/29/20 13:25 Dose: 5 mcg/kg/min, 3.3 mls/hr Documented by: [id number] Titration: 09/29/20 10:15 Dose: 10 mcg/kg/min, 6.6 mls/hr Documented by: [id number] Titration: 09/29/20 06:50 Dose: 20 mcg/kg/min, 13.2 mls/hr Documented by: [id number] Cosigned by: [id number] Admin: 09/29/20 05:51 Dose: 20 mcg/kg/min, 13.2 mls/hr Documented by: [id number] Cosigned by: [id number] Titration: 09/29/20 05:11 Dose: 20 mcg/kg/min, 13.2 mls/hr Documented by: [id number] Cosigned by: [id number] Admin: 09/28/20 21:36 Dose: 20 mcg/kg/min, 13.2 mls/hr Documented by: [id number] Cosigned by: [id number] Admin: 09/28/20 20:54 Dose: Not Given Documented by: [id number] Furosemide 20 mg/ Syringe 2 mls @ 4 mls/min IV ONE ONE Stop: 09/29/20 08:46 Last Admin: 09/29/20 09:29 Dose: 4 mls/min Documented by: [id number] Potassium Phosphate 15 mmol/ (Sodium Chloride) 255 mls @ 88 mls/hr IV ONE ONE Stop: 09/29/20 11:53 Last Infusion: 09/29/20 12:23 Dose: 0 mls/hr Documented by: [id number] Admin: 09/29/20 09:29 Dose: 88 mls/hr Documented by: [id number] Piperacillin Sod/Tazobactam (Sod 4.5 gm/ Dextrose) 120 mls @ 200 mls/hr IV NOW ONE; Protocol Stop: 09/30/20 08:20 Last Infusion: 09/30/20 10:55 Dose: 0 mls/hr Documented by: [id number] Admin: 09/30/20 08:18 Dose: 200 mls/hr Documented by: [id number] Vancomycin HCl 2,250 mg/ (Sodium Chloride) 545 mls @ 200 mls/hr IV TODAY@0800 [facility] Stop: 09/30/20 10:44 Last Infusion: 09/30/20 10:55 Dose: 0 mls/hr Documented by: [id number] Admin: 09/30/20 08:13 Dose: 200 mls/hr Documented by: [id number] Potassium Phosphate 21 mmol/ (Sodium Chloride) 507 mls @ 88 mls/hr IV NOW STA Stop: 09/30/20 13:34 Last Infusion: 09/30/20 13:42 Dose: 0 mls/hr Documented by: [id number] Admin: 09/30/20 08:10 Dose: 88 mls/hr Documented by: [id number] Piperacillin Sod/Tazobactam (Sod 4.5 gm/ Dextrose) 120 mls @ 30 mls/hr IV Q8H [facility]; Protocol Stop: 10/07/20 13:59 Last Infusion: 10/01/20 09:48 Dose: 0 mls/hr Documented by: [id number] Admin: 10/01/20 05:48 Dose: 30 mls/hr Documented by: [id number] Infusion: 10/01/20 02:15 Dose: 0 mls/hr Documented by: [id number] Admin: 09/30/20 22:14 Dose: 30 mls/hr Documented by: [id number] Infusion: 09/30/20 18:14 Dose: 0 mls/hr Documented by: [id number] Admin: 09/30/20 14:14 Dose: 30 mls/hr Documented by: [id number] Vancomycin HCl 1,250 mg/ (Sodium Chloride) 275 mls @ 200 mls/hr IV Q12H [facility] Stop: 10/07/20 19:59 Last Infusion: 10/01/20 09:49 Dose: 0 mls/hr Documented by: [id number] Admin: 10/01/20 08:26 Dose: 200 mls/hr Documented by: [id number] Infusion: 09/30/20 21:35 Dose: 0 mls/hr Documented by: [id number] Admin: 09/30/20 20:08 Dose: 200 mls/hr Documented by: [id number] Acetaminophen (Ofirmev) 1,000 mg in 100 mls @ 400 mls/hr IV NOW STA Stop: 10/01/20 05:45 Last Infusion: 10/01/20 06:09 Dose: 0 mls/hr Documented by: [id number] Admin: 10/01/20 05:47 Dose: 400 mls/hr Documented by: [id number] Ceftriaxone Sodium 2,000 mg/ (Dextrose) 70 mls @ 140 mls/hr IV Q24H [facility] Stop: 10/08/20 11:59 Last Infusion: 10/02/20 15:12 Dose: 0 mls/hr Documented by: [id number] Admin: 10/02/20 14:42 Dose: 140 mls/hr Documented by: [id number] Infusion: 10/01/20 13:04 Dose: 0 mls/hr Documented by: [id number] Admin: 10/01/20 12:34 Dose: 140 mls/hr Documented by: [id number] Phenylephrine HCl 60 mg/ (Dextrose) 506 mls @ 27.83 mls/hr IV .[id number] [facility]; Protocol Stop: 10/31/20 11:15 Last Admin: 10/02/20 11:33 Dose: Not Given Documented by: [id number] Admin: 10/02/20 11:33 Dose: Not Given Documented by: [id number] Dexmedetomidine HCl 200 mcg/ (Sodium Chloride) 50 mls @ 16.5 mls/hr IV .Q3H2M [facility]; Protocol Stop: 10/06/20 11:14 Last Admin: 10/04/20 13:35 Dose: Not Given Documented by: [id number] Titration: 10/04/20 12:10 Dose: 0 mcg/kg/hr, 0 mls/hr Documented by: [id number] Admin: 10/04/20 09:24 Dose: Not Given Documented by: [id number] Admin: 10/04/20 09:24 Dose: Not Given Documented by: [id number] Admin: 10/04/20 09:24 Dose: Not Given Documented by: [id number] Admin: 10/04/20 09:24 Dose: Not Given Documented by: [id number] Admin: 10/04/20 09:24 Dose: Not Given Documented by: [id number] Admin: 10/04/20 09:23 Dose: Not Given Documented by: [id number] Admin: 10/04/20 08:52 Dose: 0.6 mcg/kg/hr, 16.5 mls/hr Documented by: [id number] Cosigned by: [id number] Titration: 10/04/20 08:17 Dose: 0.4 mcg/kg/hr, 11 mls/hr Documented by: [id number] Cosigned by: [id number] Titration: 10/04/20 07:13 Dose: 0.4 mcg/kg/hr, 11 mls/hr Documented by: [id number] Cosigned by: [id number] Admin: 10/04/20 03:44 Dose: 0.4 mcg/kg/hr, 11 mls/hr Documented by: [id number] Cosigned by: [id number] Titration: 10/04/20 02:39 Dose: 0.4 mcg/kg/hr, 11 mls/hr Documented by: [id number] Cosigned by: [id number] Admin: 10/03/20 22:06 Dose: 0.4 mcg/kg/hr, 11 mls/hr Documented by: [id number] Cosigned by: [id number] Titration: 10/03/20 20:31 Dose: 0.4 mcg/kg/hr, 11 mls/hr Documented by: [id number] Cosigned by: [id number] Admin: 10/03/20 15:58 Dose: 0.4 mcg/kg/hr, 11 mls/hr Documented by: [id number] Cosigned by: [id number] Titration: 10/03/20 15:58 Dose: 0.4 mcg/kg/hr, 11 mls/hr Documented by: [id number] Cosigned by: [id number] Admin: 10/03/20 11:42 Dose: 0.4 mcg/kg/hr, 11 mls/hr Documented by: [id number] Cosigned by: [id number] Titration: 10/03/20 11:42 Dose: 0.4 mcg/kg/hr, 11 mls/hr Documented by: [id number] Cosigned by: [id number] Titration: 10/03/20 07:13 Dose: 0.4 mcg/kg/hr, 11 mls/hr Documented by: [id number] Cosigned by: [id number] Admin: 10/03/20 07:11 Dose: 0.4 mcg/kg/hr, 11 mls/hr Documented by: [id number] Cosigned by: [id number] Titration: 10/03/20 06:31 Dose: 0.4 mcg/kg/hr, 11 mls/hr Documented by: [id number] Cosigned by: [id number] Admin: 10/03/20 01:58 Dose: 0.4 mcg/kg/hr, 11 mls/hr Documented by: [id number] Cosigned by: [id number] Titration: 10/03/20 01:58 Dose: 0.4 mcg/kg/hr, 11 mls/hr Documented by: [id number] Cosigned by: [id number] Titration: 10/02/20 23:23 Dose: 0.4 mcg/kg/hr, 11 mls/hr Documented by: [id number] Cosigned by: [id number] Admin: 10/02/20 21:35 Dose: 0.4 mcg/kg/hr, 11 mls/hr Documented by: [id number] Cosigned by: [id number] Titration: 10/02/20 21:35 Dose: 0.4 mcg/kg/hr, 11 mls/hr Documented by: [id number] Cosigned by: [id number] Admin: 10/02/20 17:22 Dose: 0.4 mcg/kg/hr, 11 mls/hr Documented by: [id number] Cosigned by: [id number] Titration: 10/02/20 17:22 Dose: 0.2 mcg/kg/hr, 5.5 mls/hr Documented by: [id number] Cosigned by: [id number] Admin: 10/02/20 11:39 Dose: 0.2 mcg/kg/hr, 5.5 mls/hr Documented by: [id number] Cosigned by: [id number] Vancomycin HCl 1,250 mg/ (Sodium Chloride) 275 mls @ 200 mls/hr IV TODAY@0000 ONE Stop: 10/03/20 01:22 Last Infusion: 10/03/20 02:04 Dose: 0 mls/hr Documented by: [id number] Admin: 10/03/20 00:43 Dose: 200 mls/hr Documented by: [id number] Parenteral Electrolytes (Normosol-R) 500 mls @ 999 mls/hr IV .Q31M ONE Stop: 10/03/20 10:29 Last Infusion: 10/03/20 12:27 Dose: 0 mls/hr Documented by: [id number] Admin: 10/03/20 10:11 Dose: 999 mls/hr Documented by: [id number] Phenylephrine HCl 40 mg/ (Dextrose) 504 mls @ 0 mls/hr IV .Q0M [facility]; Protocol Stop: 11/02/20 09:59 Last Titration: 10/13/20 07:06 Dose: 0 mcg/kg/min, 0 mls/hr Documented by: [id number] Titration: 10/04/20 08:17 Dose: 0 mcg/kg/min, 0 mls/hr Documented by: [id number] Titration: 10/04/20 07:13 Dose: 0.2 mcg/kg/min, 15.2 mls/hr Documented by: [id number] Cosigned by: [id number] Admin: 10/04/20 03:45 Dose: Not Given Documented by: [id number] Titration: 10/03/20 23:31 Dose: 0.2 mcg/kg/min, 15.2 mls/hr Documented by: [id number] Titration: 10/03/20 16:24 Dose: 0.1 mcg/kg/min, 7.6 mls/hr Documented by: [id number] Titration: 10/03/20 15:16 Dose: 0 mcg/kg/min, 0 mls/hr Documented by: [id number] Titration: 10/03/20 10:42 Dose: 0.3 mcg/kg/min, 22.8 mls/hr Documented by: [id number] Admin: 10/03/20 10:27 Dose: 0.5 mcg/kg/min, 38 mls/hr Documented by: [id number] Cosigned by: [id number] Cefepime HCl 2,000 mg/ Syringe 20 mls @ 5 mls/min IV Q12H [facility] Stop: 10/10/20 11:59 Last Admin: 10/04/20 12:14 Dose: 5 mls/min Documented by: [id number] Admin: 10/03/20 23:37 Dose: 5 mls/min Documented by: [id number] Admin: 10/03/20 11:47 Dose: 5 mls/min Documented by: [id number] Caspofungin 50 mg/ Sodium (Chloride) 260 mls @ 260 mls/hr IV Q24H [facility] Stop: 10/09/20 12:59 Last Infusion: 10/09/20 12:34 Dose: 0 mls/hr Documented by: [id number] Admin: 10/09/20 11:34 Dose: 260 mls/hr Documented by: [id number] Infusion: 10/08/20 12:57 Dose: 0 mls/hr Documented by: [id number] Admin: 10/08/20 11:56 Dose: 257.1 mls/hr Documented by: [id number] Infusion: 10/07/20 14:38 Dose: 0 mls/hr Documented by: [id number] Admin: 10/07/20 12:30 Dose: 260 mls/hr Documented by: [id number] Infusion: 10/06/20 12:53 Dose: 0 mls/hr Documented by: [id number] Admin: 10/06/20 11:38 Dose: 260 mls/hr Documented by: [id number] Infusion: 10/05/20 14:11 Dose: 0 mls/hr Documented by: [id number] Admin: 10/05/20 11:51 Dose: 260 mls/hr Documented by: [id number] Infusion: 10/04/20 13:14 Dose: 0 mls/hr Documented by: [id number] Admin: 10/04/20 12:14 Dose: 260 mls/hr Documented by: [id number] Caspofungin 70 mg/ Sodium (Chloride) 260 mls @ 260 mls/hr IV TODAY@1200 ONE Stop: 10/03/20 12:59 Last Infusion: 10/03/20 12:52 Dose: 0 mls/hr Documented by: [id number] Admin: 10/03/20 11:44 Dose: 260 mls/hr Documented by: [id number] Dexmedetomidine HCl 400 mcg/ (Sodium Chloride) 100 mls @ 41.25 mls/hr IV .Q2H26M [facility]; Protocol Stop: 10/08/20 11:59 Last Admin: 10/09/20 03:41 Dose: Not Given Documented by: [id number] Titration: 10/08/20 14:57 Dose: 0 mcg/kg/hr, 0 mls/hr Documented by: [id number] Admin: 10/08/20 12:31 Dose: 1.5 mcg/kg/hr, 41.3 mls/hr Documented by: [id number] Cosigned by: [id number] Titration: 10/08/20 12:19 Dose: 1.5 mcg/kg/hr, 41.3 mls/hr Documented by: [id number] Cosigned by: [id number] Admin: 10/08/20 09:53 Dose: 1.5 mcg/kg/hr, 41.3 mls/hr Documented by: [id number] Cosigned by: [id number] Titration: 10/08/20 09:51 Dose: 1.5 mcg/kg/hr, 41.3 mls/hr Documented by: [id number] Cosigned by: [id number] Admin: 10/08/20 07:25 Dose: 1.5 mcg/kg/hr, 41.3 mls/hr Documented by: [id number] Cosigned by: [id number] Titration: 10/08/20 07:25 Dose: 1.5 mcg/kg/hr, 41.3 mls/hr Documented by: [id number] Cosigned by: [id number] Titration: 10/08/20 07:23 Dose: 1.5 mcg/kg/hr, 41.3 mls/hr Documented by: [id number] Cosigned by: [id number] Admin: 10/08/20 05:20 Dose: 1.5 mcg/kg/hr, 41.3 mls/hr Documented by: [id number] Cosigned by: [id number] Titration: 10/08/20 05:20 Dose: 1.5 mcg/kg/hr, 41.3 mls/hr Documented by: [id number] Cosigned by: [id number] Admin: 10/08/20 03:21 Dose: 1.5 mcg/kg/hr, 41.3 mls/hr Documented by: [id number] Cosigned by: [id number] Titration: 10/08/20 01:47 Dose: 1.5 mcg/kg/hr, 41.3 mls/hr Documented by: [id number] Cosigned by: [id number] Admin: 10/07/20 23:21 Dose: 1.5 mcg/kg/hr, 41.3 mls/hr Documented by: [id number] Cosigned by: [id number] Titration: 10/07/20 22:55 Dose: 1.5 mcg/kg/hr, 41.3 mls/hr Documented by: [id number] Cosigned by: [id number] Admin: 10/07/20 20:29 Dose: 1.5 mcg/kg/hr, 41.3 mls/hr Documented by: [id number] Cosigned by: [id number] Titration: 10/07/20 20:29 Dose: 1.5 mcg/kg/hr, 41.3 mls/hr Documented by: [id number] Cosigned by: [id number] Admin: 10/07/20 18:06 Dose: 1.5 mcg/kg/hr, 41.3 mls/hr Documented by: [id number] Cosigned by: [id number] Titration: 10/07/20 18:06 Dose: 1.5 mcg/kg/hr, 41.3 mls/hr Documented by: [id number] Cosigned by: [id number] Admin: 10/07/20 15:46 Dose: 1.5 mcg/kg/hr, 41.3 mls/hr Documented by: [id number] Cosigned by: [id number] Admin: 10/07/20 15:46 Dose: Not Given Documented by: [id number] Admin: 10/07/20 15:46 Dose: Not Given Documented by: [id number] Admin: 10/07/20 15:45 Dose: Not Given Documented by: [id number] Titration: 10/07/20 15:31 Dose: 1.5 mcg/kg/hr, 41.3 mls/hr Documented by: [id number] Cosigned by: [id number] Admin: 10/07/20 13:05 Dose: 1.5 mcg/kg/hr, 41.3 mls/hr Documented by: [id number] Cosigned by: [id number] Titration: 10/07/20 13:05 Dose: 1.5 mcg/kg/hr, 41.3 mls/hr Documented by: [id number] Cosigned by: [id number] Admin: 10/07/20 10:40 Dose: 1.5 mcg/kg/hr, 41.3 mls/hr Documented by: [id number] Cosigned by: [id number] Titration: 10/07/20 10:35 Dose: 1.5 mcg/kg/hr, 41.3 mls/hr Documented by: [id number] Cosigned by: [id number] Admin: 10/07/20 08:09 Dose: 1.5 mcg/kg/hr, 41.3 mls/hr Documented by: [id number] Cosigned by: [id number] Titration: 10/07/20 08:09 Dose: 1.3 mcg/kg/hr, 35.8 mls/hr Documented by: [id number] Cosigned by: [id number] Admin: 10/07/20 05:39 Dose: 1.3 mcg/kg/hr, 35.8 mls/hr Documented by: [id number] Cosigned by: [id number] Titration: 10/07/20 05:39 Dose: 1.3 mcg/kg/hr, 35.8 mls/hr Documented by: [id number] Cosigned by: [id number] Admin: 10/07/20 03:07 Dose: 1.3 mcg/kg/hr, 35.8 mls/hr Documented by: [id number] Cosigned by: [id number] Titration: 10/07/20 03:07 Dose: 1.3 mcg/kg/hr, 35.8 mls/hr Documented by: [id number] Cosigned by: [id number] Admin: 10/07/20 00:29 Dose: 1.3 mcg/kg/hr, 35.8 mls/hr Documented by: [id number] Cosigned by: [id number] Titration: 10/07/20 00:29 Dose: 1.3 mcg/kg/hr, 35.8 mls/hr Documented by: [id number] Cosigned by: [id number] Titration: 10/07/20 00:26 Dose: 1.3 mcg/kg/hr, 35.8 mls/hr Documented by: [id number] Titration: 10/06/20 22:58 Dose: 1.5 mcg/kg/hr, 41.3 mls/hr Documented by: [id number] Titration: 10/06/20 22:31 Dose: 1.4 mcg/kg/hr, 38.5 mls/hr Documented by: [id number] Titration: 10/06/20 22:04 Dose: 1.3 mcg/kg/hr, 35.8 mls/hr Documented by: [id number] Cosigned by: [id number] Admin: 10/06/20 22:04 Dose: 1.3 mcg/kg/hr, 35.8 mls/hr Documented by: [id number] Cosigned by: [id number] Titration: 10/06/20 21:58 Dose: 1.3 mcg/kg/hr, 35.8 mls/hr Documented by: [id number] Admin: 10/06/20 19:34 Dose: 1.2 mcg/kg/hr, 33 mls/hr Documented by: [id number] Cosigned by: [id number] Titration: 10/06/20 19:30 Dose: 1.2 mcg/kg/hr, 33 mls/hr Documented by: [id number] Admin: 10/06/20 16:23 Dose: 1.2 mcg/kg/hr, 33 mls/hr Documented by: [id number] Cosigned by: [id number] Titration: 10/06/20 16:23 Dose: 1.2 mcg/kg/hr, 33 mls/hr Documented by: [id number] Cosigned by: [id number] Admin: 10/06/20 14:06 Dose: 1.2 mcg/kg/hr, 33 mls/hr Documented by: [id number] Cosigned by: [id number] Titration: 10/06/20 13:05 Dose: 1.2 mcg/kg/hr, 33 mls/hr Documented by: [id number] Cosigned by: [id number] Admin: 10/06/20 12:19 Dose: Not Given Documented by: [id number] Admin: 10/06/20 12:18 Dose: Not Given Documented by: [id number] Admin: 10/06/20 10:03 Dose: 1.2 mcg/kg/hr, 33 mls/hr Documented by: [id number] Cosigned by: [id number] Titration: 10/06/20 10:03 Dose: 1 mcg/kg/hr, 27.5 mls/hr Documented by: [id number] Cosigned by: [id number] Titration: 10/06/20 07:08 Dose: 1 mcg/kg/hr, 27.5 mls/hr Documented by: [id number] Cosigned by: [id number] Admin: 10/06/20 06:24 Dose: 1 mcg/kg/hr, 27.5 mls/hr Documented by: [id number] Cosigned by: [id number] Titration: 10/06/20 06:24 Dose: 1 mcg/kg/hr, 27.5 mls/hr Documented by: [id number] Cosigned by: [id number] Admin: 10/06/20 02:45 Dose: 1 mcg/kg/hr, 27.5 mls/hr Documented by: [id number] Cosigned by: [id number] Titration: 10/06/20 02:45 Dose: 1 mcg/kg/hr, 27.5 mls/hr Documented by: [id number] Cosigned by: [id number] Admin: 10/06/20 01:54 Dose: Not Given Documented by: [id number] Titration: 10/06/20 01:12 Dose: 1 mcg/kg/hr, 27.5 mls/hr Documented by: [id number] Admin: 10/05/20 23:05 Dose: 0.9 mcg/kg/hr, 24.8 mls/hr Documented by: [id number] Cosigned by: [id number] Titration: 10/05/20 23:02 Dose: 0.9 mcg/kg/hr, 24.8 mls/hr Documented by: [id number] Cosigned by: [id number] Admin: 10/05/20 22:18 Dose: Not Given Documented by: [id number] Admin: 10/05/20 22:17 Dose: Not Given Documented by: [id number] Admin: 10/05/20 22:17 Dose: Not Given Documented by: [id number] Titration: 10/05/20 19:45 Dose: 0.9 mcg/kg/hr, 24.8 mls/hr Documented by: [id number] Titration: 10/05/20 19:04 Dose: 0.7 mcg/kg/hr, 19.3 mls/hr Documented by: [id number] Cosigned by: [id number] Admin: 10/05/20 18:46 Dose: 0.7 mcg/kg/hr, 19.3 mls/hr Documented by: [id number] Cosigned by: [id number] Titration: 10/05/20 18:46 Dose: 0.7 mcg/kg/hr, 19.3 mls/hr Documented by: [id number] Cosigned by: [id number] Admin: 10/05/20 13:46 Dose: 0.7 mcg/kg/hr, 19.3 mls/hr Documented by: [id number] Cosigned by: [id number] Titration: 10/05/20 13:01 Dose: 0.7 mcg/kg/hr, 19.3 mls/hr Documented by: [id number] Cosigned by: [id number] Admin: 10/05/20 07:50 Dose: 0.7 mcg/kg/hr, 19.3 mls/hr Documented by: [id number] Cosigned by: [id number] Titration: 10/05/20 07:50 Dose: 0.7 mcg/kg/hr, 19.3 mls/hr Documented by: [id number] Cosigned by: [id number] Titration: 10/05/20 07:22 Dose: 0.7 mcg/kg/hr, 19.3 mls/hr Documented by: [id number] Cosigned by: [id number] Admin: 10/05/20 01:47 Dose: Not Given Documented by: [id number] Admin: 10/05/20 00:50 Dose: 0.6 mcg/kg/hr, 16.5 mls/hr Documented by: [id number] Cosigned by: [id number] Titration: 10/05/20 00:50 Dose: 0.4 mcg/kg/hr, 11 mls/hr Documented by: [id number] Cosigned by: [id number] Titration: 10/04/20 19:27 Dose: 0.4 mcg/kg/hr, 11 mls/hr Documented by: [id number] Titration: 10/04/20 18:59 Dose: 0.6 mcg/kg/hr, 16.5 mls/hr Documented by: [id number] Cosigned by: [id number] Admin: 10/04/20 17:46 Dose: 0.6 mcg/kg/hr, 16.5 mls/hr Documented by: [id number] Cosigned by: [id number] Titration: 10/04/20 17:46 Dose: 0.6 mcg/kg/hr, 16.5 mls/hr Documented by: [id number] Cosigned by: [id number] Admin: 10/04/20 12:11 Dose: 0.6 mcg/kg/hr, 16.5 mls/hr Documented by: [id number] Cosigned by: [id number] Vancomycin HCl 1,250 mg/ (Sodium Chloride) 275 mls @ 200 mls/hr IV NOW ONE Stop: 10/04/20 13:52 Last Infusion: 10/04/20 14:23 Dose: 0 mls/hr Documented by: [id number] Admin: 10/04/20 13:00 Dose: 200 mls/hr Documented by: [id number] Cefepime HCl 2,000 mg/ Syringe 20 mls @ 5 mls/min IV Q8H [facility] Stop: 10/10/20 19:59 Last Admin: 10/10/20 12:08 Dose: 5 mls/min Documented by: [id number] Admin: 10/10/20 04:34 Dose: 5 mls/min Documented by: [id number] Admin: 10/09/20 20:18 Dose: 5 mls/min Documented by: [id number] Admin: 10/09/20 11:42 Dose: 5 mls/min Documented by: [id number] Admin: 10/09/20 05:49 Dose: 5 mls/min Documented by: [id number] Admin: 10/08/20 21:20 Dose: 5 mls/min Documented by: [id number] Admin: 10/08/20 12:22 Dose: 5 mls/min Documented by: [id number] Admin: 10/08/20 04:39 Dose: 5 mls/min Documented by: [id number] Admin: 10/07/20 20:25 Dose: 5 mls/min Documented by: [id number] Admin: 10/07/20 12:31 Dose: 5 mls/min Documented by: [id number] Admin: 10/07/20 03:10 Dose: 5 mls/min Documented by: [id number] Admin: 10/06/20 19:39 Dose: 5 mls/min Documented by: [id number] Admin: 10/06/20 11:39 Dose: 5 mls/min Documented by: [id number] Admin: 10/06/20 03:32 Dose: 5 mls/min Documented by: [id number] Admin: 10/05/20 19:46 Dose: 5 mls/min Documented by: [id number] Admin: 10/05/20 11:52 Dose: 5 mls/min Documented by: [id number] Admin: 10/05/20 03:57 Dose: 5 mls/min Documented by: [id number] Admin: 10/04/20 20:16 Dose: 5 mls/min Documented by: [id number] Vancomycin HCl 1,250 mg/ (Sodium Chloride) 275 mls @ 200 mls/hr IV NOW STA Stop: 10/05/20 14:26 Last Infusion: 10/05/20 15:36 Dose: 0 mls/hr Documented by: [id number] Admin: 10/05/20 14:08 Dose: 200 mls/hr Documented by: [id number] Vancomycin HCl 1,250 mg/ (Sodium Chloride) 275 mls @ 200 mls/hr IV Q24H [facility]ATHIEU Stop: 10/13/20 11:59 Last Infusion: 10/07/20 14:39 Dose: 0 mls/hr Documented by: [id number] Admin: 10/07/20 12:31 Dose: 200 mls/hr Documented by: [id number] Infusion: 10/06/20 14:35 Dose: 0 mls/hr Documented by: [id number] Admin: 10/06/20 11:38 Dose: 200 mls/hr Documented by: [id number] Linezolid (Zyvox) 600 mg in 300 mls @ 200 mls/hr IV Q12H [facility]ATHIEU Stop: 10/15/20 01:29 Last Infusion: 10/12/20 14:33 Dose: 0 mls/hr Documented by: [id number] Admin: 10/12/20 12:21 Dose: 200 mls/hr Documented by: [id number] Infusion: 10/12/20 01:59 Dose: 0 mls/hr Documented by: [id number] Admin: 10/12/20 00:29 Dose: 200 mls/hr Documented by: [id number] Infusion: 10/11/20 14:20 Dose: 0 mls/hr Documented by: [id number] Admin: 10/11/20 12:01 Dose: 200 mls/hr Documented by: [id number] Infusion: 10/11/20 01:37 Dose: 0 mls/hr Documented by: [id number] Admin: 10/11/20 00:07 Dose: 200 mls/hr Documented by: [id number] Infusion: 10/10/20 13:42 Dose: 0 mls/hr Documented by: [id number] Admin: 10/10/20 12:09 Dose: 200 mls/hr Documented by: [id number] Infusion: 10/10/20 02:33 Dose: 0 mls/hr Documented by: [id number] Admin: 10/10/20 01:03 Dose: 200 mls/hr Documented by: [id number] Infusion: 10/09/20 13:14 Dose: 0 mls/hr Documented by: [id number] Admin: 10/09/20 11:44 Dose: 200 mls/hr Documented by: [id number] Infusion: 10/09/20 06:21 Dose: 0 mls/hr Documented by: [id number] Admin: 10/09/20 02:27 Dose: 200 mls/hr Documented by: [id number] Infusion: 10/08/20 13:52 Dose: 0 mls/hr Documented by: [id number] Admin: 10/08/20 12:22 Dose: 200 mls/hr Documented by: [id number] Diltiazem HCl 125 mg/ Dextrose 125 mls @ 0 mls/hr IV .Q0M [facility]; Protocol Stop: 11/07/20 22:14 Last Titration: 10/12/20 16:35 Dose: 0 mg/hr, 0 mls/hr Documented by: [id number] Cosigned by: [id number] Admin: 10/10/20 12:15 Dose: Not Given Documented by: [id number] Admin: 10/09/20 10:58 Dose: Not Given Documented by: [id number] Titration: 10/09/20 06:50 Dose: 0 mg/hr, 0 mls/hr Documented by: [id number] Cosigned by: [id number] Titration: 10/09/20 06:00 Dose: 5 mg/hr, 5 mls/hr Documented by: [id number] Cosigned by: [id number] Titration: 10/09/20 00:19 Dose: 10 mg/hr, 10 mls/hr Documented by: [id number] Cosigned by: [id number] Admin: 10/08/20 23:31 Dose: 5 mg/hr, 5 mls/hr Documented by: [id number] Cosigned by: [id number] Parenteral Electrolytes (Normosol-R) 1,000 mls @ 80 mls/hr IV .[id number] [facility] Stop: 11/08/20 14:14 Last Infusion: 10/12/20 09:15 Dose: 0 mls/hr Documented by: [id number] Admin: 10/12/20 04:10 Dose: 80 mls/hr Documented by: [id number] Infusion: 10/12/20 04:10 Dose: 80 mls/hr Documented by: [id number] Admin: 10/11/20 16:37 Dose: 80 mls/hr Documented by: [id number] Infusion: 10/11/20 11:59 Dose: 0 mls/hr Documented by: [id number] Admin: 10/10/20 22:56 Dose: 80 mls/hr Documented by: [id number] Infusion: 10/10/20 13:21 Dose: 0 mls/hr Documented by: [id number] Admin: 10/10/20 12:51 Dose: Not Given Documented by: [id number] Admin: 10/10/20 00:40 Dose: 80 mls/hr Documented by: [id number] Infusion: 10/10/20 00:40 Dose: 80 mls/hr Documented by: [id number] Admin: 10/09/20 14:29 Dose: 80 mls/hr Documented by: [id number] Dexmedetomidine HCl 200 mcg/ (Sodium Chloride) 50 mls @ 5.445 mls/hr IV .[id number] [facility]; Protocol Stop: 10/14/20 10:59 Last Admin: 10/10/20 12:15 Dose: Not Given Documented by: [id number] Dextrose ([id number]) 1,000 mls @ 80 mls/hr IV .[id number] [facility] Stop: 11/11/20 09:14 Last Infusion: 10/12/20 21:37 Dose: 0 mls/hr Documented by: [id number] Admin: 10/12/20 09:42 Dose: 80 mls/hr Documented by: [id number] Ioversol (Optiray 320 125ml) 118 ml IV ONCE ONE Stop: 09/21/20 21:14 Last Admin: 09/21/20 21:14 Dose: 118 ml Documented by: [id number] Ioversol (Ioversol 100ml) 91 ml IV ONCE ONE Stop: 10/03/20 18:10 Last Admin: 10/03/20 18:09 Dose: 91 ml Documented by: [id number] Levothyroxine Sodium (Levothyroxine Sodium 25 Mcg Tablet) [facility] Stop: 10/22/20 06:29 Last Admin: 09/24/20 05:21 Dose: Not Given Documented by: [id number] Admin: 09/23/20 06:49 Dose: 25 mcg Documented by: [id number] Admin: 09/22/20 06:41 Dose: 25 mcg Documented by: [id number] Levothyroxine Sodium (Levothyroxine Sodium 25 Mcg Tablet) [facility] Stop: 10/28/20 06:29 Last Admin: 10/09/20 06:22 Dose: Not Given Documented by: [id number] Admin: 10/08/20 05:23 Dose: 25 mcg Documented by: [id number] Admin: 10/07/20 05:38 Dose: 25 mcg Documented by: [id number] Admin: 10/06/20 03:33 Dose: 25 mcg Documented by: [id number] Admin: 10/05/20 03:58 Dose: 25 mcg Documented by: [id number] Admin: 10/04/20 06:14 Dose: 25 mcg Documented by: [id number] Admin: 10/03/20 06:35 Dose: 25 mcg Documented by: [id number] Admin: 10/02/20 05:33 Dose: 25 mcg Documented by: [id number] Admin: 10/01/20 05:48 Dose: 25 mcg Documented by: [id number] Admin: 09/30/20 04:56 Dose: 25 mcg Documented by: [id number] Admin: 09/29/20 04:52 Dose: 25 mcg Documented by: [id number] Admin: 09/28/20 05:55 Dose: 25 mcg Documented by: [id number] Lidocaine HCl (Lidocaine 2% 20 Mg/Ml 5 Ml Syr) Confirm Administered Dose 100 mg IV .STK-MED ONE Stop: 09/25/20 18:42 Last Admin: 09/26/20 09:40 Dose: 100 mg Documented by: [id number] Lidocaine HCl (Lidocaine Mpf 4% Local Inj 5 Ml Amp) 5 ml SOM ONE ONE Stop: 10/10/20 11:01 Last Admin: 10/10/20 11:47 Dose: 5 ml Documented by: [id number] Lidocaine HCl (Lidocaine 2% 20 Mg/Ml 5 Ml Syr) Confirm Administered Dose 100 mg IV .STK-MED ONE Stop: 10/10/20 10:55 Last Admin: 10/10/20 11:47 Dose: 6 mg Documented by: [id number] Lidocaine HCl (Lidocaine 2% Jelly 5 Ml Tube) Confirm Administered Dose 5 ml .ROUTE .STSociercise[facility] [place] [facility] Stop: 10/10/20 10:55 Last Admin: 10/10/20 11:47 Dose: 5 ml Documented by: [id number] Lidocaine HCl (Lidocaine Hcl 2% (Local) Inj 50 Ml Vial) Confirm Administered Dose 50 ml .ROUTE .STK-MED ONE Stop: 10/10/20 10:55 Last Admin: 10/10/20 11:47 Dose: 50 ml Documented by: [id number] Metoprolol Tartrate (Metoprolol Tartrate 25 Mg Tab) 25 mg PO BID [facility] Stop: 10/22/20 08:59 Last Admin: 09/23/20 20:36 Dose: 25 mg Documented by: [id number] Admin: 09/23/20 08:36 Dose: 25 mg Documented by: [id number] Admin: 09/22/20 22:23 Dose: 25 mg Documented by: [id number] Admin: 09/22/20 09:07 Dose: 25 mg Documented by: [id number] Metoprolol Tartrate (Metoprolol Tartrate 1 Mg/Ml Vial) 5 mg IV Q6 [facility] Stop: 10/24/20 11:59 Last Admin: 09/27/20 06:02 Dose: 5 mg Documented by: [id number] Admin: 09/27/20 00:23 Dose: 5 mg Documented by: [id number] Admin: 09/26/20 19:35 Dose: 5 mg Documented by: [id number] Admin: 09/26/20 11:34 Dose: 5 mg Documented by: [id number] Admin: 09/26/20 05:14 Dose: 5 mg Documented by: [id number] Admin: 09/26/20 00:36 Dose: 5 mg Documented by: [id number] Admin: 09/25/20 19:58 Dose: 5 mg Documented by: [id number] Admin: 09/25/20 19:16 Dose: Not Given Documented by: [id number] Admin: 09/25/20 09:56 Dose: 5 mg Documented by: [id number] Admin: 09/25/20 04:55 Dose: Not Given Documented by: [id number] Admin: 09/25/20 00:10 Dose: Not Given Documented by: [id number] Admin: 09/24/20 18:57 Dose: Not Given Documented by: [id number] Admin: 09/24/20 15:45 Dose: Not Given Documented by: [id number] Metoprolol Tartrate (Metoprolol Tartrate 25 Mg Tab) 25 mg PO BID [facility] Stop: 10/27/20 08:59 Last Admin: 10/08/20 23:33 Dose: Not Given Documented by: [id number] Admin: 10/08/20 08:46 Dose: 25 mg Documented by: [id number] Admin: 10/07/20 20:27 Dose: 25 mg Documented by: [id number] Admin: 10/07/20 08:11 Dose: 25 mg Documented by: [id number] Admin: 10/06/20 19:41 Dose: 25 mg Documented by: [id number] Admin: 10/06/20 07:30 Dose: 25 mg Documented by: [id number] Admin: 10/05/20 19:48 Dose: 25 mg Documented by: [id number] Admin: 10/05/20 07:48 Dose: 25 mg Documented by: [id number] Admin: 10/04/20 20:17 Dose: 25 mg Documented by: [id number] Admin: 10/04/20 08:52 Dose: 25 mg Documented by: [id number] Admin: 10/03/20 20:29 Dose: 25 mg Documented by: [id number] Admin: 10/03/20 08:42 Dose: Not Given Documented by: [id number] Admin: 10/02/20 21:32 Dose: 25 mg Documented by: [id number] Admin: 10/02/20 08:55 Dose: 25 mg Documented by: [id number] Admin: 10/01/20 21:32 Dose: 25 mg Documented by: [id number] Admin: 10/01/20 08:28 Dose: 25 mg Documented by: [id number] Admin: 09/30/20 21:24 Dose: Not Given Documented by: [id number] Admin: 09/30/20 07:49 Dose: 25 mg Documented by: [id number] Admin: 09/29/20 21:03 Dose: 25 mg Documented by: [id number] Admin: 09/29/20 08:12 Dose: 25 mg Documented by: [id number] Admin: 09/28/20 20:38 Dose: 25 mg Documented by: [id number] Admin: 09/28/20 09:55 Dose: 25 mg Documented by: [id number] Admin: 09/27/20 21:16 Dose: 25 mg Documented by: [id number] Admin: 09/27/20 09:03 Dose: 25 mg Documented by: [id number] Metoprolol Tartrate (Metoprolol Tartrate 1 Mg/Ml Vial) 5 mg IV Q6 PRN PRN Reason: SBP>160 Stop: 10/24/20 11:59 Last Admin: 10/03/20 05:48 Dose: 5 mg Documented by: [id number] Admin: 09/30/20 05:01 Dose: 5 mg Documented by: [id number] Admin: 09/29/20 05:50 Dose: 5 mg Documented by: [id number] Admin: 09/27/20 12:26 Dose: 5 mg Documented by: [id number] Metoprolol Tartrate (Metoprolol Tartrate 1 Mg/Ml Vial) 5 mg IV NOW STA Stop: 10/08/20 21:15 Last Admin: 10/08/20 21:20 Dose: 5 mg Documented by: [id number] Metoprolol Tartrate (Metoprolol Tartrate 1 Mg/Ml Vial) 5 mg IV Q6 [facility] Stop: 11/08/20 05:59 Last Admin: 10/11/20 12:01 Dose: 5 mg Documented by: [id number] Admin: 10/11/20 05:24 Dose: 5 mg Documented by: [id number] Admin: 10/11/20 00:07 Dose: 5 mg Documented by: [id number] Admin: 10/10/20 19:26 Dose: 5 mg Documented by: [id number] Admin: 10/10/20 11:47 Dose: 5 mg Documented by: [id number] Admin: 10/10/20 06:51 Dose: 5 mg Documented by: [id number] Admin: 10/10/20 01:03 Dose: 5 mg Documented by: [id number] Admin: 10/09/20 17:34 Dose: 5 mg Documented by: [id number] Admin: 10/09/20 11:35 Dose: 5 mg Documented by: [id number] Admin: 10/09/20 06:39 Dose: 5 mg Documented by: [id number] Metoprolol Tartrate (Metoprolol Tartrate 1 Mg/Ml Vial) 5 mg IV NOW STA Stop: 10/11/20 14:36 Last Admin: 10/11/20 14:37 Dose: 5 mg Documented by: [id number] Midazolam HCl (Midazolam Hcl 5 Mg/Ml Vial) 4 mg IV NOW STA Stop: 09/24/20 08:17 Last Admin: 09/24/20 09:13 Dose: 4 mg Documented by: [id number] Midazolam HCl (Midazolam Hcl 1 Mg/Ml 2ml Vial) Confirm Administered Dose 4 mg .ROUTE .STK-MED ONE Stop: 09/24/20 08:20 Last Admin: 09/24/20 09:13 Dose: Not Given Documented by: [id number] Midazolam HCl (Midazolam Hcl 1 Mg/Ml 2ml Vial) 4 mg IV Q2H PRN PRN Reason: Agitation Stop: 10/24/20 08:55 Last Admin: 09/25/20 15:40 Dose: 4 mg Documented by: [id number] Admin: 09/25/20 11:49 Dose: 4 mg Documented by: [id number] Admin: 09/25/20 09:32 Dose: 4 mg Documented by: [id number] Admin: 09/25/20 03:12 Dose: 4 mg Documented by: [id number] Admin: 09/25/20 00:09 Dose: 4 mg Documented by: [id number] Admin: 09/24/20 22:03 Dose: 4 mg Documented by: [id number] Admin: 09/24/20 19:56 Dose: 4 mg Documented by: [id number] Midazolam HCl (Midazolam Hcl 5 Mg/Ml 1 Ml Vial) Confirm Administered Dose 5 mg .ROUTE .STK-MED ONE Stop: 09/25/20 18:41 Last Admin: 09/25/20 19:16 Dose: 5 mg Documented by: [id number] Mirabegron (Mirabegron Er 25 Mg Tab) 50 mg PO DAILY [facility] Stop: 10/22/20 08:59 Last Admin: 09/24/20 08:01 Dose: Not Given Documented by: [id number] Admin: 09/23/20 08:37 Dose: 50 mg Documented by: [id number] Admin: 09/22/20 09:08 Dose: 50 mg Documented by: [id number] Miscellaneous (Xyzal~Order Awaiting Action) 1 ea N/A QS [facility] Stop: 10/22/20 07:59 Last Admin: 09/24/20 07:44 Dose: Not Given Documented by: [id number] Admin: 09/23/20 23:52 Dose: Not Given Documented by: [id number] Admin: 09/23/20 19:37 Dose: Not Given Documented by: [id number] Admin: 09/23/20 19:36 Dose: Not Given Documented by: [id number] Admin: 09/23/20 00:04 Dose: Not Given Documented by: [id number] Admin: 09/22/20 20:22 Dose: Not Given Documented by: [id number] Admin: 09/22/20 17:20 Dose: Not Given Documented by: [id number] Miscellaneous (Vesicare~Order Awaiting Action) 1 ea N/A QS [facility] Stop: 10/22/20 07:59 Last Admin: 09/24/20 07:44 Dose: Not Given Documented by: [id number] Admin: 09/23/20 23:52 Dose: Not Given Documented by: [id number] Admin: 09/23/20 19:36 Dose: Not Given Documented by: [id number] Admin: 09/23/20 19:36 Dose: Not Given Documented by: [id number] Admin: 09/23/20 00:04 Dose: Not Given Documented by: [id number] Admin: 09/22/20 20:22 Dose: Not Given Documented by: [id number] Admin: 09/22/20 17:20 Dose: Not Given Documented by: [id number] Miscellaneous (Rapid Sequence Induction Bag) Confirm Administered Dose 1 ea .ROUTE .STK-MED ONE Stop: 09/25/20 16:00 Last Admin: 09/25/20 16:50 Dose: 1 ea Documented by: [id number] Miscellaneous (Rapid Sequence Induction Bag) Confirm Administered Dose 1 ea .ROUTE .STK-MED ONE Stop: 10/10/20 10:46 Last Admin: 10/10/20 11:46 Dose: 1 ea Documented by: [id number] Morphine Sulfate (Morphine Sulfate 2 Mg/Ml Carp) 2 mg IV NOW STA Stop: 09/24/20 03:52 Last Admin: 09/24/20 04:00 Dose: 2 mg Documented by: [id number] Morphine Sulfate (Morphine Sulfate 2 Mg/Ml Carp) Confirm Administered Dose 2 mg .ROUTE .STK-MED ONE Stop: 09/24/20 03:53 Last Admin: 09/24/20 04:26 Dose: Not Given Documented by: [id number] Morphine Sulfate (Morphine Sulfate 2 Mg/Ml Carp) 2 mg IV Q4 PRN PRN Reason: Pain Stop: 10/09/20 09:27 Last Admin: 09/25/20 15:49 Dose: 2 mg Documented by: [id number] Admin: 09/25/20 13:06 Dose: 2 mg Documented by: [id number] Admin: 09/25/20 09:37 Dose: 2 mg Documented by: [id number] Morphine Sulfate (Morphine Sulfate 2 Mg/Ml Carp) Confirm Administered Dose 2 mg .ROUTE .STK-MED ONE Stop: 09/25/20 09:32 Last Admin: 09/25/20 09:36 Dose: Not Given Documented by: [id number] Morphine Sulfate (Morphine Sulfate 2 Mg/Ml Carp) Confirm Administered Dose 2 mg .ROUTE .ST-MED ONE Stop: 10/10/20 10:43 Last Admin: 10/10/20 11:46 Dose: 2 mg Documented by: [id number] Morphine Sulfate (Morphine Sulfate 2 Mg/Ml Carp) 2 mg IV NOW STA Stop: 10/10/20 15:01 Last Admin: 10/10/20 15:49 Dose: Not Given Documented by: [id number] Morphine Sulfate (Morphine Sulfate 4 Mg/Ml 1 Ml Carp\Vial) 4 mg IV NOW STA Stop: 10/10/20 16:54 Last Admin: 10/10/20 17:43 Dose: 4 mg Documented by: [id number] Morphine Sulfate (Morphine Sulfate 2 Mg/Ml Carp) Confirm Administered Dose 2 mg .ROUTE .ST-MED ONE Stop: 10/11/20 14:09 Last Admin: 10/11/20 14:20 Dose: 2 mg Documented by: [id number] Morphine Sulfate (Morphine Sulfate 2 Mg/Ml Carp) 2 mg IV NOW STA Stop: 10/11/20 14:11 Last Admin: 10/11/20 14:20 Dose: Not Given Documented by: [id number] Morphine Sulfate (Morphine Sulfate 2 Mg/Ml Carp) 2 mg IV NOW ONE Stop: 10/12/20 02:19 Last Admin: 10/12/20 04:44 Dose: Not Given Documented by: [id number] Morphine Sulfate (Morphine Sulfate 2 Mg/Ml Carp) 2 mg IV NOW STA Stop: 10/12/20 04:44 Last Admin: 10/12/20 05:01 Dose: 2 mg Documented by: [id number] Multivitamins/Minerals (Multi Vit W/Minerals Liquid 15 Ml Udp) 15 ml PO QAM [facility]U Stop: 10/28/20 08:59 Last Admin: 10/09/20 07:41 Dose: Not Given Documented by: [id number] Admin: 10/08/20 08:47 Dose: 15 ml Documented by: [id number] Admin: 10/07/20 08:10 Dose: 15 ml Documented by: [id number] Admin: 10/06/20 07:29 Dose: 15 ml Documented by: [id number] Admin: 10/05/20 07:47 Dose: 15 ml Documented by: [id number] Admin: 10/04/20 08:52 Dose: 15 ml Documented by: [id number] Admin: 10/03/20 08:31 Dose: 15 ml Documented by: [id number] Admin: 10/02/20 08:55 Dose: 15 ml Documented by: [id number] Admin: 10/01/20 08:28 Dose: 15 ml Documented by: [id number] Admin: 09/30/20 07:49 Dose: 15 ml Documented by: [id number] Admin: 09/29/20 08:11 Dose: 15 ml Documented by: [id number] Admin: 09/28/20 09:55 Dose: 15 ml Documented by: [id number] Nutritional Formula (Peptamen Intense Vhp 1.0 Oscar 1,000 Ml Bag) 1,000 ml OG UD MATHIEU; Protocol Stop: 10/26/20 15:59 Last Admin: 10/08/20 13:18 Dose: 1,000 ml Documented by: [id number] Admin: 10/07/20 15:53 Dose: 1,000 ml Documented by: [id number] Admin: 10/06/20 14:31 Dose: 1,000 ml Documented by: [id number] Admin: 10/05/20 16:18 Dose: 1,000 ml Documented by: [id number] Admin: 10/04/20 18:42 Dose: 1,000 ml Documented by: [id number] Admin: 10/03/20 21:11 Dose: 1,000 ml Documented by: [id number] Admin: 10/02/20 11:10 Dose: 1,000 ml Documented by: [id number] Admin: 10/01/20 17:35 Dose: 1,000 ml Documented by: [id number] Admin: 09/26/20 19:36 Dose: 1,000 ml Documented by: [id number] Olanzapine (Olanzapine 10 Mg/2.1 Ml Sdv) 2.5 mg IM NOW STA Stop: 09/23/20 13:36 Last Admin: 09/23/20 14:54 Dose: 2.5 mg Documented by: [id number] Olanzapine (Olanzapine 10 Mg/2.1 Ml Sdv) 2.5 mg IM Q6H PRN PRN Reason: agitation Stop: 10/23/20 17:47 Last Admin: 09/24/20 00:46 Dose: 2.5 mg Documented by: [id number] Olanzapine (Olanzapine 10 Mg/2.1 Ml Sdv) 2.5 mg IM NOW STA Stop: 09/23/20 17:48 Last Admin: 09/23/20 18:03 Dose: 2.5 mg Documented by: [id number] Olanzapine (Olanzapine 10 Mg/2.1 Ml Sdv) Confirm Administered Dose 10 mg IM .STK-MED ONE Stop: 10/07/20 09:07 Last Admin: 10/07/20 09:49 Dose: 2.5 mg Documented by: [id number] Olanzapine (Olanzapine 10 Mg/2.1 Ml Sdv) 2.5 mg IM NOW STA Stop: 10/07/20 09:16 Last Admin: 10/07/20 09:49 Dose: Not Given Documented by: [id number] Olanzapine (Olanzapine 10 Mg/2.1 Ml Sdv) Confirm Administered Dose 10 mg IM .STK-MED ONE Stop: 10/07/20 12:56 Last Admin: 10/07/20 13:00 Dose: 2.5 mg Documented by: [id number] Olanzapine (Olanzapine 10 Mg/2.1 Ml Sdv) 2.5 mg IM NOW STA Stop: 10/07/20 13:03 Last Admin: 10/07/20 13:06 Dose: Not Given Documented by: [id number] Olanzapine (Olanzapine 10 Mg/2.1 Ml Sdv) 2.5 mg IM NOW STA Stop: 10/07/20 19:24 Last Admin: 10/07/20 20:21 Dose: 2.5 mg Documented by: [id number] Olanzapine (Olanzapine Zydis 5 Mg Orally Dis. Tab) 5 mg PO HS MATHIEU Stop: 11/07/20 20:59 Last Admin: 10/08/20 23:33 Dose: Not Given Documented by: [id number] Oxycodone/Acetaminophen (Oxycodone/Acetaminophen 10-325 Tab) 1 tab PO NOW STA Stop: 09/22/20 00:26 Last Admin: 09/22/20 01:24 Dose: 1 tab Documented by: [id number] Oxycodone/Acetaminophen (Oxycodone/Acetaminophen 10-325 Tab) 1 tab PO TID PRN PRN Reason: pain Stop: 10/06/20 01:56 Last Admin: 09/23/20 20:48 Dose: 1 tab Documented by: [id number] Admin: 09/23/20 09:02 Dose: 1 tab Documented by: [id number] Admin: 09/22/20 22:36 Dose: 1 tab Documented by: [id number] Admin: 09/22/20 10:28 Dose: 1 tab Documented by: [id number] Pneumococcal Polyvalent Vaccine (Pneumococcal Polysaccharide Vaccine 25mcg/0.5ml Vial/Syr) 25 mcg IM .ONCE ONE Stop: 09/22/20 08:01 Last Admin: 09/22/20 09:06 Dose: Not Given Documented by: [id number] Polyethylene Glycol (Polyethylene (Miralax) 17 Gm Pack) 17 gm PO DAILY [facility] Stop: 10/31/20 10:44 Last Admin: 10/09/20 07:35 Dose: Not Given Documented by: [id number] Admin: 10/08/20 08:46 Dose: 17 gm Documented by: [id number] Admin: 10/07/20 08:11 Dose: 17 gm Documented by: [id number] Admin: 10/06/20 07:30 Dose: 17 gm Documented by: [id number] Admin: 10/05/20 07:48 Dose: 17 gm Documented by: [id number] Admin: 10/04/20 13:24 Dose: Not Given Documented by: [id number] Admin: 10/03/20 08:31 Dose: 17 gm Documented by: [id number] Admin: 10/02/20 08:55 Dose: 17 gm Documented by: [id number] Admin: 10/01/20 12:34 Dose: 17 gm Documented by: [id number] Pregabalin (Pregabalin 100 Mg Cap) 100 mg PO NOW STA Stop: 09/22/20 00:26 Last Admin: 09/22/20 01:24 Dose: 100 mg Documented by: [id number] Pregabalin (Pregabalin 100 Mg Cap) 100 mg PO TID MATHIEU Stop: 10/22/20 08:59 Last Admin: 09/24/20 08:01 Dose: Not Given Documented by: [id number] Admin: 09/23/20 20:44 Dose: 100 mg Documented by: [id number] Admin: 09/23/20 14:54 Dose: 100 mg Documented by: [id number] Admin: 09/23/20 09:02 Dose: 100 mg Documented by: [id number] Admin: 09/22/20 22:23 Dose: 100 mg Documented by: [id number] Admin: 09/22/20 15:10 Dose: 100 mg Documented by: [id number] Admin: 09/22/20 10:28 Dose: 100 mg Documented by: [id number] Pregabalin (Pregabalin 100 Mg Cap) 100 mg PO TID MATHIEU Stop: 10/25/20 20:59 Last Admin: 10/06/20 07:39 Dose: 100 mg Documented by: [id number] Admin: 10/05/20 19:48 Dose: 100 mg Documented by: [id number] Admin: 10/05/20 14:08 Dose: 100 mg Documented by: [id number] Admin: 10/05/20 07:53 Dose: 100 mg Documented by: [id number] Admin: 10/04/20 20:16 Dose: 100 mg Documented by: [id number] Admin: 10/04/20 14:53 Dose: 100 mg Documented by: [id number] Admin: 10/04/20 08:55 Dose: 100 mg Documented by: [id number] Admin: 10/03/20 20:34 Dose: 100 mg Documented by: [id number] Admin: 10/03/20 13:04 Dose: 100 mg Documented by: [id number] Admin: 10/03/20 09:21 Dose: 100 mg Documented by: [id number] Admin: 10/02/20 21:31 Dose: 100 mg Documented by: [id number] Admin: 10/02/20 15:51 Dose: 100 mg Documented by: [id number] Admin: 10/02/20 08:54 Dose: 100 mg Documented by: [id number] Admin: 10/01/20 21:35 Dose: 100 mg Documented by: [id number] Admin: 10/01/20 14:08 Dose: 100 mg Documented by: [id number] Admin: 10/01/20 08:26 Dose: 100 mg Documented by: [id number] Admin: 09/30/20 21:28 Dose: 100 mg Documented by: [id number] Admin: 09/30/20 14:14 Dose: 100 mg Documented by: [id number] Admin: 09/30/20 07:49 Dose: 100 mg Documented by: [id number] Admin: 09/29/20 21:02 Dose: 100 mg Documented by: [id number] Admin: 09/29/20 13:05 Dose: 100 mg Documented by: [id number] Admin: 09/29/20 08:12 Dose: 100 mg Documented by: [id number] Admin: 09/28/20 20:38 Dose: 100 mg Documented by: [id number] Admin: 09/28/20 13:56 Dose: 100 mg Documented by: [id number] Admin: 09/28/20 08:17 Dose: 100 mg Documented by: [id number] Admin: 09/27/20 21:17 Dose: 100 mg Documented by: [id number] Admin: 09/27/20 14:21 Dose: 100 mg Documented by: [id number] Admin: 09/27/20 09:01 Dose: 100 mg Documented by: [id number] Admin: 09/26/20 19:35 Dose: 100 mg Documented by: [id number] Admin: 09/26/20 14:05 Dose: 100 mg Documented by: [id number] Admin: 09/26/20 09:53 Dose: 100 mg Documented by: [id number] Admin: 09/25/20 20:20 Dose: 100 mg Documented by: [id number] Pregabalin (Pregabalin 100 Mg Cap) 100 mg PO BID MATHIEU Stop: 11/05/20 20:59 Last Admin: 10/09/20 07:45 Dose: Not Given Documented by: [id number] Admin: 10/08/20 23:33 Dose: Not Given Documented by: [id number] Admin: 10/08/20 08:46 Dose: 100 mg Documented by: [id number] Admin: 10/07/20 20:33 Dose: 100 mg Documented by: [id number] Admin: 10/07/20 08:10 Dose: 100 mg Documented by: [id number] Admin: 10/06/20 20:35 Dose: 100 mg Documented by: [id number] Pregabalin (Pregabalin 100 Mg Cap) 100 mg PO BID MATHIEU Stop: 11/10/20 20:59 Last Admin: 10/13/20 07:25 Dose: Not Given Documented by: [id number] Admin: 10/12/20 20:51 Dose: 100 mg Documented by: [id number] Admin: 10/12/20 09:42 Dose: 100 mg Documented by: [id number] Admin: 10/11/20 20:15 Dose: 100 mg Documented by: [id number] Propofol (Propofol Bolus From Bag) 20 mg IV Q5M PRN PRN Reason: Sedation Stop: 09/28/20 16:30 Last Admin: 09/27/20 10:26 Dose: 20 mg Documented by: [id number] Cosigned by: [id number] Propofol (Propofol Bolus From Bag) 20 mg IV Q5M PRN PRN Reason: Sedation Stop: 10/05/20 09:45 Last Admin: 09/29/20 04:53 Dose: 20 mg Documented by: [id number] Cosigned by: [id number] Admin: 09/28/20 21:00 Dose: 20 mg Documented by: [id number] Cosigned by: [id number] Ropinirole HCl (Ropinirole Hcl 1 Mg Tablet) 2 mg PO HS MATHIEU Stop: 10/22/20 20:59 Last Admin: 09/23/20 20:37 Dose: 2 mg Documented by: [id number] Admin: 09/22/20 22:24 Dose: 2 mg Documented by: [id number] Sennosides (Sennosides 8.8 Mg/5 Ml Udc) 8.8 mg PO QAM MATHIEU Stop: 10/26/20 10:59 Last Admin: 10/09/20 07:36 Dose: Not Given Documented by: [id number] Admin: 10/08/20 08:46 Dose: 8.8 mg Documented by: [id number] Admin: 10/07/20 08:19 Dose: 8.8 mg Documented by: [id number] Admin: 10/06/20 07:31 Dose: 8.8 mg Documented by: [id number] Admin: 10/05/20 07:49 Dose: 8.8 mg Documented by: [id number] Admin: 10/04/20 13:24 Dose: Not Given Documented by: [id number] Admin: 10/03/20 08:35 Dose: 8.8 mg Documented by: [id number] Admin: 10/02/20 08:55 Dose: 8.8 mg Documented by: [id number] Admin: 10/01/20 08:27 Dose: 8.8 mg Documented by: [id number] Admin: 09/30/20 07:50 Dose: 8.8 mg Documented by: [id number] Admin: 09/29/20 08:11 Dose: 8.8 mg Documented by: [id number] Admin: 09/28/20 08:19 Dose: 8.8 mg Documented by: [id number] Admin: 09/27/20 09:02 Dose: 8.8 mg Documented by: [id number] Admin: 09/26/20 14:02 Dose: 8.8 mg Documented by: [id number] Sodium Bicarbonate (Sodium Bicarbonate 650 Mg Tab) 650 mg PO TID MATHIEU Stop: 11/10/20 20:59 Last Admin: 10/12/20 09:43 Dose: Not Given Documented by: [id number] Admin: 10/11/20 20:09 Dose: 650 mg Documented by: [id number] Sterile Water (Tube Feeding Water Flush) 200 ml GT Q6H MATHIEU Stop: 10/31/20 10:29 Last Admin: 10/09/20 03:41 Dose: Not Given Documented by: [id number] Admin: 10/08/20 22:43 Dose: Not Given Documented by: [id number] Admin: 10/08/20 18:46 Dose: Not Given Documented by: [id number] Admin: 10/08/20 10:56 Dose: 200 ml Documented by: [id number] Admin: 10/08/20 05:23 Dose: 200 ml Documented by: [id number] Admin: 10/08/20 00:23 Dose: 200 ml Documented by: [id number] Admin: 10/07/20 16:33 Dose: 200 ml Documented by: [id number] Admin: 10/07/20 10:41 Dose: 200 ml Documented by: [id number] Admin: 10/07/20 05:41 Dose: 200 ml Documented by: [id number] Admin: 10/06/20 22:32 Dose: 200 ml Documented by: [id number] Admin: 10/06/20 16:07 Dose: 200 ml Documented by: [id number] Admin: 10/06/20 10:47 Dose: 200 ml Documented by: [id number] Admin: 10/06/20 04:06 Dose: 200 ml Documented by: [id number] Admin: 10/05/20 22:18 Dose: 200 ml Documented by: [id number] Admin: 10/05/20 18:39 Dose: 200 ml Documented by: [id number] Admin: 10/05/20 11:24 Dose: 200 ml Documented by: [id number] Admin: 10/05/20 03:57 Dose: 200 ml Documented by: [id number] Admin: 10/04/20 22:30 Dose: 200 ml Documented by: [id number] Admin: 10/04/20 17:45 Dose: 200 ml Documented by: [id number] Admin: 10/04/20 12:11 Dose: 200 ml Documented by: [id number] Admin: 10/04/20 03:57 Dose: 200 ml Documented by: [id number] Admin: 10/03/20 22:46 Dose: 200 ml Documented by: [id number] Admin: 10/03/20 15:17 Dose: 200 ml Documented by: [id number] Admin: 10/03/20 08:30 Dose: 200 ml Documented by: [id number] Admin: 10/03/20 00:44 Dose: Not Given Documented by: [id number] Admin: 10/02/20 21:32 Dose: 200 ml Documented by: [id number] Admin: 10/02/20 15:51 Dose: 200 ml Documented by: [id number] Admin: 10/02/20 11:38 Dose: 200 ml Documented by: [id number] Admin: 10/02/20 05:27 Dose: 200 ml Documented by: [id number] Admin: 10/01/20 22:30 Dose: 200 ml Documented by: [id number] Admin: 10/01/20 17:34 Dose: 200 ml Documented by: [id number] Admin: 10/01/20 10:48 Dose: 200 ml Documented by: [id number] Thiamine HCl (Thiamine Hcl 100 Mg Tab) 100 mg NG DAILY MATHIEU Stop: 11/02/20 08:59 Last Admin: 10/09/20 07:45 Dose: Not Given Documented by: [id number] Admin: 10/08/20 08:46 Dose: 100 mg Documented by: [id number] Admin: 10/07/20 08:19 Dose: 100 mg Documented by: [id number] Admin: 10/06/20 07:32 Dose: 100 mg Documented by: [id number] Admin: 10/05/20 07:49 Dose: 100 mg Documented by: [id number] Admin: 10/04/20 08:51 Dose: 100 mg Documented by: [id number] Admin: 10/03/20 08:34 Dose: 100 mg Documented by: [id number] Vitamin D (Cholecalciferol 1,000 Units 25 Mcg Tab) 4,000 units PO DAILY MATHIEU Stop: 10/22/20 08:59 Last Admin: 09/24/20 08:00 Dose: Not Given Documented by: [id number] Admin: 09/23/20 08:36 Dose: 4,000 units Documented by: [id number] Admin: 09/22/20 09:08 Dose: 4,000 units Documented by: [id number] Description This is a 21 electrode EEG with a single channel dedicated to limited EKG. The electrodes were placed in accordance with the International 10-20 system. The predominant background rhythm consists of low to moderate amplitude generalized theta slowing. There is rare intermittent posterior dominant 8 to 9 Hz alpha activity. Photic stimulation is unremarkable. Hyperventilation is not performed. There is fairly regular, periodic IV drip artifact. There is intermittent movement artifact as well. There is no focal or lateralized slowing. No epileptiform abnormalities observed. Interpretation Abnormal awake/drowsy EEG revealing findings suggestive of a severe nonspecific encephalopathy. No epileptiform abnormalities observed. [facility] EEG Procedure Codes Indication for Procedure (1) Encephalopathy: Neurology Neurology: [id number] EEG include record awake & drowsy
--- NOTE | 2020-10-13 16:58 | XRay Report ---
KUB HISTORY: Acute generalized abdominal pain with distention distension COMPARISON: KUB 10/11/2020 FINDINGS: Feeding tube is noted with distal tip again noted within the region of the duodenal bulb. B owel gas pattern appears nonobstructive. Evaluation for pneumoperitoneum is limited without upright v iew. A round 4 mm calcification is noted within the right midabdomen at the level of L3-L4. No defini te renal or ureteral calculi. No acute fracture. Degenerative changes of the spine. Cardiomegaly with right basilar pulmonary opacities. IMPRESSION: 1. Distal tip of feeding tube terminates in the region of the duodenal bulb. 2. Nonobstructive bowel gas pattern. ACT 112: Negative or not required by law. The above report was generated using voice recognition software. It may contain grammatical, syntax o r spelling errors. Electronically signed by: Casimiro Marcano M.D. 10/13/2020 4:57 PM
[2020-10-13] MEDS ORDERED: LORazepam 0.5 MG/1 ML VIAL IV PRN (19:19)
[2020-10-13] MEDS ORDERED: MoRPHine SULFATE 2 MG/ML CARP IV PRN (19:19)
[2020-10-13] MEDS ORDERED: ATROPINE SULFATE 1% OP SOLN 5 ML BTL SL PRN (19:19)
[2020-10-13] MEDS ORDERED: ONDANSETRON INJ 2 MG/ML 2 ML VIAL IV PRN (19:19)
--- NOTE | 2020-10-13 19:24 | Hospitalist Progress Note ---
Date of Service October 13, 2020 Assessment & Plan (1) Airway problem: acute hypoxic episode morning of 10/10, emergent bronchoscopy by Dr. 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 Buck recommends intubation with tracheostomy patient with worsening respiratory status 10/13, agonal breathing called family to see him at the bedside long talk with his , his son and his nephew via Facetime to talk about poor prognosis discussed EEG findings, he is not responsive, he is not going to recover from this mentally or physically family agreed to comfort care see discharge summary for details (2) Acute respiratory failure with hypoxia: Secondary to Covid-19 PNA, stable with BIPAP on 09/24 however, he deteriorated, required intubation on 09/25 on 10/08 he was on minimal vent settings but was still delirious he was successfully extubated, breathing on 3L NC, but still very disoriented continues to be tachypneic, saturating low 90's on 4-5L mask he desaturated later in the evening around 6pm, placed on BIPAP 16/8 100% FiO2 brought saturations up to 100% discussed with family at the bedside, transitioned to comfort care (3) Acute metabolic encephalopathy: has a history of delirium when hospitalized at baseline he drinks at least 3 beers a day. antibiotics for infectious etiology -- Linezolid and Cefepime plus caspofungin Zyprexa was tried, now stopped propofol stopped, Precedex now off with being extubated Lyrica stopped patient has eyes open, turns head towards my voice but jerks head away repeatedly moves upper extremities, does not move lower extremities no response to pain in lower extremities, Babinski neg, decreased patellar reflexes his says that he has no feeling in feet due to neuropathy, chronic issue I have concerns that his mental status is not improving, will get sodium down with free water EEG showed severe encephalopathy, no epileptiform waves neurology recommended MRI brain, discussed with , not safe due to breathing patient unresponsive for almost 48 hours without sedation does not withdrawal to pain, will not open his eyes even when his here at the bedside shouting at him clear that patient will not wake up family wishes for comfort care (4) Hypernatremia: Na up to 151 on Normosol stop Normosol, start D5W at 80cc/hr, give 100mL free water q6 via [employer] repeat BMP today with Na down to 146 no improvement in mental status (5) Acute kidney injury: initially resolved Cr was down to baseline for over a week, electrolytes stable making adequate urine, Lasix given 10/10 Cr up the past three days, 1.5 then 1.7 and now 2.0 D5W at 80cc/hr poor UO likely ATN given rise in Cr despite IV fluids (6) Pneumonia due to COVID-19 virus: -Dexamethasone 6mg IV daily, stopped by pulmonary med no Remdesivir or plasma as he presented 9 days into illness -Albuterol HFA PRN with acute hypoxic respiratory failure treated with BIPAP, tolerated well initially 09/25: intubated and ventilated ID consult 10/02/30 Recommendations: - Recommend stopping Ceftriaxone IV. - Recommend continuing Vancomycin IV for 10 - 14 days. Bacterial superinfection after COVID infection has been well documented Now on Cefepime and Linezolid extubated on 10/08 breathing slowly deteriorated until 10/13 when he developed respiratory failure could not protect airway, rattling in throat, no cough or gag placed on comfort care after trial of BIPAP (7) Acute on chronic diastolic CHF (congestive heart failure): related to aortic stenosis Lasix 10/10 (8) GUS on CPAP: Chronic -again fortunately no hypercapnea (9) Gout: Chronic. Stable. No acute flare at present -Continue Allopurinol (10) BPH with obstruction/lower urinary tract symptoms: No evidence of UTI -Continue alfuzosin -Continue solifenacin (11) Hypertension: BP acceptable for situation. continue metoprolol and follow (12) Hypothyroidism: Chronic. Stable. Last TSH in 10/24 = 3.95 -Continue Synthroid 25mcg po daily (13) Opioid dependence: Patient with chronic pain and neuropathy -Continue Lyrica 100mg po BID (14) Acid reflux: Chronic. Stable -Pepcid 20mg IV BID - may have effect on disease severity in Covid-19 (15) DVT prophylaxis: lovenox, therapeutic dosing (16) Atrial flutter: intermittent, use Amiodarone if needed Lopressor 5mg IV q4 PRN he is in sinus tachycardia with bigeminy occasionally (17) MRSA (methicillin resistant staphylococcus aureus) pneumonia: MRSA nasal swab positive vancomycin for antibiotic coverage (18) Swelling of left hand: mild erythema, swelling, tender doubt cellulitis as he is on broad spectrum antibiotics could be related to left UE line, will pull central access, place peripheral sites doppler of left arm NEGATIVE for DVT Admission and Anticipated Discharge Date Admission Date: September 22, 2020 Subjective EEG shows severe encephalopathy, no epileptiform activity placed on BIPAP this over night due to desaturations, was then stable on 15L oxymask all day however, respirations started to reduce, agonal breathing, called his to come see him at the bedside face time with his nephew (an ER physician) and the patient's , they agreed that the patient would not want tracheostomy to be kept alive awaited arrival of patient's son to make him comfort measures only Review of Systems Review of Systems: Unobtainable due to cognitive status and Unobtainable due to reduced consciousness Physical Exam Constitutional: well developed, + morbidly obese, + in distress and + malnourished Neck: trachea midline and + thick neck Respiratory: + labored breathing, + tachypneic and + paradoxical thoraco- abdominal movement (agonal breathing) Auscultation: + rhonchi (rattling in back of throat) Cardiovascular: Rate/Rhythm: regular rate and regular rhythm Heart Sounds: normal S1 and normal S2; no murmur Extremities: normal capillary refill; no edema Gastrointestinal (Abdomen): normal bowel sounds, soft, nontender, no hepatosplenomegaly Musculoskeletal: no cyanosis or clubbing, extremities motor strength 5/5 Skin: no rashes, warm and dry + erythema (left hand, swollen, tender) Neurologic: CN's II-XI intact bilaterally and + confused; + abnormal touch/pain/proprioception (will not respond to painful stimuli on toes), + does not move all extremities (no movment in all extemities, does not withdawal to pain), no focal motor deficits and + not awake Speech / Cognition: + abnormal cognition Motor/Sensory: + abnormal movement (jerking movement of the head and neck) Psychiatric: Orientation: + not alert and + not oriented x 3 Lymphatic: no cervical or axillary lymphadenopathy Results & Data Results & Data ([facility]) Vital Signs (Past 12 Hours) Vital Signs Temp Pulse Pulse Resp BP BP Pulse Ox 10/13/20 18:29 92 H 33 H 93 10/13/20 17:34 96 10/13/20 15:51 119 H 172/74 H 10/13/20 15:10 106 H 10/13/20 15:03 37 C 96 H 20 172/74 H 99 10/13/20 11:13 98 H 169/71 H 10/13/20 07:41 95 H 29 H 95 10/13/20 07:25 84 171/76 H Laboratory Results Laboratory Results - last 24 hr 10/12/20 10/13/20 10/13/20 19:08 00:27 05:50 WBC 9.81 RBC 3.10 L Hgb 8.7 L Hct 28.7 L MCV 92.6 MCH 28.1 MCHC 30.3 L RDW Std Deviation 54.1 H RDW Coeff of Bisi 16.3 H Plt Count 186 MPV 10.4 ABG pH ABG pCO2 ABG pO2 ABG HCO3 ABG O2 Saturation ABG Base Excess Jean Claude Test Barometric Pressure Oxygen Given Sodium Potassium 4.7 Chloride Carbon Dioxide Anion Gap BUN Creatinine Est Cr Clr Drug Dosing Est GFR ( Amer) Est GFR (Non-Af Amer) BUN/Creatinine Ratio Glucose POC Glucose 102 H Calcium 10/13/20 10/13/20 10/13/20 05:50 06:31 09:00 WBC RBC Hgb Hct MCV MCH MCHC RDW Std Deviation RDW Coeff of Bisi Plt Count MPV ABG pH 7.45 ABG pCO2 42 ABG pO2 102 H ABG HCO3 29 H ABG O2 Saturation 97.5 H ABG Base Excess 4.5 H Jean Claude Test Pos Barometric Pressure 735.6 Oxygen Given 30% Sodium 146 H Potassium 3.9 D Chloride 119 H Carbon Dioxide 24 Anion Gap 3.0 BUN 86 H Creatinine 2.04 H Est Cr Clr Drug Dosing 39.6 Est GFR ( Amer) 36.9 Est GFR (Non-Af Amer) 31.8 BUN/Creatinine Ratio 42.1 H Glucose 87 POC Glucose 89 Calcium 8.7 10/13/20 11:37 WBC RBC Hgb Hct MCV MCH MCHC RDW Std Deviation RDW Coeff of Bisi Plt Count MPV ABG pH ABG pCO2 ABG pO2 ABG HCO3 ABG O2 Saturation ABG Base Excess Jean Claude Test Barometric Pressure Oxygen Given Sodium Potassium Chloride Carbon Dioxide Anion Gap BUN Creatinine Est Cr Clr Drug Dosing Est GFR ( Amer) Est GFR (Non-Af Amer) BUN/Creatinine Ratio Glucose POC Glucose 119 H Calcium Medications Administered Current Inpatient Medications Albuterol (Albuterol Hfa 8 Gm Inhaler) 2 puffs INH Q4H PRN PRN Reason: Shortness Of Breath Stop: 10/22/20 01:56 Albuterol (Albut/Ipratrop 3mg/0.5mg Neb 3 Ml Vial) 3 ml NEB Q4 PRN PRN Reason: Shortness Of Breath Or Wheezing Stop: 11/08/20 07:37 Last Admin: 10/12/20 21:03 Dose: 3 ml Documented by: Allopurinol (Allopurinol 100 Mg Tab) 100 mg OG QAM MATHIEU Stop: 11/10/20 08:59 Last Admin: 10/13/20 07:25 Dose: Not Given Documented by: Atropine Sulfate (Atropine Sulfate 1% Op Soln 5 Ml Btl) 4 drops SL Q1H PRN PRN Reason: Secretions or pulm congestion Stop: 11/12/20 19:18 Enoxaparin Sodium (Enoxaparin 100 Mg/1ml Syr) 100 mg SQ Q12H MATHIEU Stop: 11/02/20 11:59 Last Admin: 10/13/20 11:13 Dose: 100 mg Documented by: Enteral Nutritional Formula (Peptamen 1.5 Oscar 1,000 Ml Bag) 1,000 ml GT UD [facility]; Protocol Stop: 11/11/20 11:59 Last Admin: 10/13/20 03:34 Dose: 1,000 ml Documented by: Heparin Sodium (Beef Lung) (Heparin 10 Unit/Ml 5 Ml Flush) 5 ml FLUSH PRN PRN PRN Reason: Flush Stop: 10/25/20 22:45 Last Admin: 10/06/20 03:29 Dose: 5 ml Documented by: Hydralazine HCl (Hydralazine Hcl 20 Mg/Ml Vial) 10 mg IV Q6 PRN PRN Reason: Hypertension Stop: 10/24/20 18:54 Last Admin: 10/08/20 18:42 Dose: 10 mg Documented by: Linezolid (Zyvox) 600 mg in 300 mls @ 300 mls/hr IV Q12H MATHIEU; Protocol Stop: 10/15/20 23:59 Last Infusion: 10/13/20 12:18 Dose: Infused Documented by: Lorazepam (Ativan) 0.5 mg in 1 mls @ 1 mls/min IV Q4H PRN PRN Reason: Anxiety/Agitation Stop: 11/12/20 19:18 Metoprolol Tartrate (Metoprolol Tartrate 1 Mg/Ml Vial) 5 mg IV Q4 MATHIEU Stop: 11/10/20 15:59 Last Admin: 10/13/20 15:51 Dose: 5 mg Documented by: Morphine Sulfate (Morphine Sulfate 2 Mg/Ml Carp) 2 mg IV Q4H PRN PRN Reason: Agitation Stop: 10/26/20 15:16 Last Admin: 10/13/20 03:33 Dose: 2 mg Documented by: Morphine Sulfate (Morphine Sulfate 2 Mg/Ml Carp) 2 mg IV Q1H PRN PRN Reason: Pain or Respiratory Distress Stop: 10/27/20 19:18 Ondansetron HCl (Ondansetron Inj 2 Mg/Ml 2 Ml Vial) 4 mg IV Q4H PRN PRN Reason: Nausea And Vomiting Stop: 11/12/20 19:18 Sterile Water (Tube Feeding Water Flush) 100 ml GT Q6 MATHIEU Stop: 11/11/20 09:14 Last Admin: 10/13/20 18:03 Dose: Not Given Documented by: PG Care Time/CCT Total # of Minutes Spent Total Time Spent: 90 Total Time Spent with Patient: Total time spent is greater than 50% in coordination of care (as documented) at patient's floor/unit and/or counseling patient: 30 minutes this morning: exam, speaking with Dr. Buck, speaking with patient's over the phone, reviewing charge 60 minutes this evening at the bedside with the patient, talking with family about goals of care, terminal removal of BIPAP and comfort measure orders Prolonged Care Time Prolonged Care Time: Yes Total Prolonged Care Time: 60 Coding Level of Care Code 21863 Subseq Hosp Care Lvl 3 Diagnoses Airway problem J98.9 Acute respiratory failure with hypoxia J96.01 Acute metabolic encephalopathy G93.41 Hypernatremia E87.0 Acute kidney injury N17.9 Pneumonia due to COVID-19 virus U07.1; J12.89 Acute on chronic diastolic CHF (congestive heart failure) I50.33 GUS on CPAP G47.33; Z99.89 Gout M10.9 Chronicity: unspecified Gout etiology: unspecified cause Gout site: unspecified site BPH with obstruction/lower urinary tract symptoms N40.1; N13.8 Hypertension I10 Hypertension type: essential hypertension Hypothyroidism E03.9 Hypothyroidism type: unspecified Opioid dependence F11.20 Substance use status: uncomplicated Acid reflux K21.9 Esophagitis presence: esophagitis presence not specified DVT prophylaxis Z29.9 Atrial flutter I48.92 MRSA (methicillin resistant staphylococcus aureus) pneumonia J15.212 Swelling of left hand M79.89 Additional Codes Prolonged Care Time - Prolonged Care Time: Yes ([id number]) (1) Opioid dependence Substance use status: uncomplicated Qualified Code(s): F11.20 - Opioid dependence, uncomplicated (2) Gout Chronicity: unspecified Gout etiology: unspecified cause Gout site: unspecified site Qualified Code(s): M10.9 - Gout, unspecified (3) Hypothyroidism Hypothyroidism type: unspecified Qualified Code(s): E03.9 - Hypothyroidism, unspecified (4) Acid reflux Esophagitis presence: esophagitis presence not specified Qualified Code(s): K21.9 - Gastro-esophageal reflux disease without esophagitis (5) Hypertension Hypertension type: essential hypertension Qualified Code(s): I10 - Essential (primary) hypertension
--- NOTE | 2020-10-13 20:47 | Death Pronouncement Note ---
Date of Service October 13, 2020 Pronouncement Note Admission Date Admission Date: September 22, 2020 Notified of patient cessation of respiration and cardiac function by nursing staff at 2019, patient [employer]PERVIS[employer] ORCHARD with family at bedside. On bedside evaluation patient with no audible cardiac activity for 1 minutes, pupils fixed and dilated with no response to light, no corneal reflex to saline flush, and no spontaneous respirations. Time of 2041hrs 10/13/2020. Cause of cardiac arrest due to acute hypoxic respiratory failure due to multifocal pneumonia. Contributing factors include chronic restrictive lung disease, GUS, and recent COVID-19 infection. Contributing Factors (1) Airway problem: (2) Acute respiratory failure with hypoxia: (3) Acute metabolic encephalopathy: (4) Hypernatremia: (5) Acute kidney injury: (6) Pneumonia due to COVID-19 virus: (7) Acute on chronic diastolic CHF (congestive heart failure): (8) Vitamin D deficiency: (9) Restrictive lung disease: (10) GUS on CPAP: (11) Gout: (12) BPH with obstruction/lower urinary tract symptoms: (13) Hypertension: (14) Hypothyroidism: (15) Opioid dependence: (16) Acid reflux: (17) DVT prophylaxis: (18) Atrial flutter: (19) MRSA (methicillin resistant staphylococcus aureus) pneumonia: (20) Swelling of left hand: (21) Metabolic acidosis: Additional Data Attending physician: Nathan Beltre DO
--- NOTE | 2020-10-13 22:40 | Discharge Summary ---
Date of Service October 13, 2020 Admission HPI Per Admitting Provider Zurdo Camacho is a 69yo C male presenting with Covid-19 PNA and hypoxemia. Patient initially developed symptoms on 09/12/20 with fever, mild cough and diarrhea x 1 episode. He had a Covid-19 test performed on 09/14/20 by his PCP which was POSITIVE. Patient was doing fairly well at home. Today he developed worsening fever, cough, SOB/TATE and hoarseness. He denies chest pain, loss of taste or smell, nausea or vomiting. Patient is a poor historian. Details were corroborated with patient's . Upon arrival to the ER patient was febrile at 38.1 hypoxic to 68% on room air and tachypneic. He was placed on NRB 15L with improvement in oxygenation. Currently 94% ER Course: Dexamethasone 6mg IV, NSS x 500mL Principal Diagnosis COVID 19 pneumonia with acute hypoxic respiratory failure Discharge Exam unresponsive, no pulse, no respirations, no heart sounds, no breath sounds, pupils fixed Discharge Data Allergies Allergy/AdvReac Type Severity Reaction Status Date / Time tetracycline Allergy Unknown SORES IN Verified 09/21/20 22:09 MOUTH aspirin AdvReac Intermediate ulcer Verified 09/21/20 22:09 Consultations 09/21/20 22:54 ED Decision to Admit Stat 09/24/20 07:00 Consult Dairy And Food Laboratory Assistant Routine 09/27/20 13:21 Consult Cardiology Routine 10/02/20 10:49 Consult Infectious Diseases Routine 10/12/20 11:13 Consult Neurology Routine 10/12/20 14:27 Consult Palliative Care Routine 10/13/20 19:19 Consult Case Management - Discharge Planning Routine Ordered Studies 09/21/20 20:37 CT angio chest PE protocol Stat 09/25/20 16:30 US point of care ultrasound Urgent 09/27/20 10:40 CT head/brain wo con Routine 10/03/20 11:18 CT chest diagnostic w con Routine 10/09/20 14:10 US venous doppler UE LT Routine 10/14/20 09:00 MR brain wo con Routine Hospital Course (1) Airway problem: acute hypoxic episode morning of 10/10, emergent bronchoscopy by Dr. 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 Buck recommends intubation with tracheostomy patient with worsening respiratory status 10/13, agonal breathing called family to see him at the bedside long talk with his , his son and his nephew via Facetime to talk about poor prognosis discussed EEG findings, he is not responsive, he is not going to recover from this mentally or physically family agreed to comfort care BIPAP removed, placed on morphine PRN and atropine patient with family at the bedside in evening 10/13/20 (2) Acute respiratory failure with hypoxia: Secondary to Covid-19 PNA, stable with BIPAP on 09/24 however, he deteriorated, required intubation on 09/25 on 10/08 he was on minimal vent settings but was still delirious he was successfully extubated, breathing on 3L NC, but remained very disoriented continued to be tachypneic, saturating low 90's on 4-5L mask on 10/13/20 he desaturated later in the evening around 6pm, placed on BIPAP 20/05 100% FiO2 brought saturations up to 100% discussed with family at the bedside, transitioned to comfort care, peacefully (3) Acute metabolic encephalopathy: has a history of delirium when hospitalized at baseline he drinks at least 3 beers a day. antibiotics for infectious etiology -- Linezolid and Cefepime plus caspofungin Zyprexa was tried, now stopped propofol stopped, Precedex now off with being extubated Lyrica stopped patient has eyes open, turns head towards my voice but jerks head away repeatedly moves upper extremities, does not move lower extremities no response to pain in lower extremities, Babinski neg, decreased patellar reflexes his says that he has no feeling in feet due to neuropathy, chronic issue I have concerns that his mental status is not improving, will get sodium down with free water EEG showed severe encephalopathy, no epileptiform waves neurology recommended MRI brain, discussed with , not safe due to breathing patient unresponsive for almost 48 hours without sedation does not withdrawal to pain, will not open his eyes even when his here at the bedside shouting at him clear that patient will not wake up family transitioned to comfort care (4) Hypernatremia: Na up to 151 on Normosol stop Normosol, start D5W at 80cc/hr, give 100mL free water q6 via [employer] repeat BMP today with Na down to 146 no improvement in mental status (5) Acute kidney injury: initially resolved Cr was down to baseline for over a week, electrolytes stable making adequate urine, Lasix given 10/10 Cr up the past three days, 1.5 then 1.7 and now 2.0 D5W at 80cc/hr poor UO likely ATN given rise in Cr despite IV fluids (6) Pneumonia due to COVID-19 virus: -Dexamethasone 6mg IV daily, stopped by pulmonary med no Remdesivir or plasma as he presented 9 days into illness -Albuterol HFA PRN with acute hypoxic respiratory failure treated with BIPAP, tolerated well initially 09/25: intubated and ventilated ID consult 10/02/30 Recommendations: - Recommend stopping Ceftriaxone IV. - Recommend continuing Vancomycin IV for 10 - 14 days. Bacterial superinfection after COVID infection has been well documented Now on Cefepime and Linezolid extubated on 10/08 breathing slowly deteriorated until 10/13 when he developed respiratory failure could not protect airway, rattling in throat, no cough or gag placed on comfort care after trial of BIPAP (7) Acute on chronic diastolic CHF (congestive heart failure): related to aortic stenosis Lasix 10/10 (8) GUS on CPAP: Chronic -again fortunately no hypercapnea (9) Gout: Chronic. Stable. No acute flare at present -Continue Allopurinol (10) BPH with obstruction/lower urinary tract symptoms: No evidence of UTI -Continue alfuzosin -Continue solifenacin (11) Hypertension: BP acceptable for situation. continue metoprolol and follow (12) Hypothyroidism: Chronic. Stable. Last TSH in 10/24 = 3.95 -Continue Synthroid 25mcg po daily (13) Opioid dependence: Patient with chronic pain and neuropathy (14) Acid reflux: Chronic. Stable -Pepcid 20mg IV BID (15) DVT prophylaxis: lovenox, therapeutic dosing (16) Atrial flutter: intermittent, use Amiodarone if needed Lopressor 5mg IV q4 PRN he is in sinus tachycardia with bigeminy occasionally (17) MRSA (methicillin resistant staphylococcus aureus) pneumonia: MRSA nasal swab positive Linezolid (18) Swelling of left hand: mild erythema, swelling, tender doubt cellulitis as he is on broad spectrum antibiotics could be related to left UE line, will pull central access, place peripheral sites doppler of left arm NEGATIVE for DVT Total Time Total Time Spent Total Time Spent (In Minutes): 35 minutes Total Time Includes: Examination of the Patient and Other (time spent with family at the bedside, transition to comfort care) Discharge Plan Discharge Items Reason For Visit: COVID-19,HYPOXEMIA Condition on Discharge: Good Follow-up/Referrals: Carlo Willingham MD [Primary Care Provider] - Medications and DC Order Prescriptions: No Action allopurinol 100 mg tablet 100 mg PO DAILY Qty: 90 RF: 3 levocetirizine [Xyzal] 5 mg tablet 5 mg PO DAILY Qty: 90 RF: 3 duloxetine 60 mg capsule,delayed release(DR/EC) 60 mg PO DAILY Qty: 90 RF: 3 metoprolol tartrate 25 mg tablet 25 mg PO BID Qty: 180 RF: 3 alfuzosin 10 mg tablet extended release 24 hr 10 mg PO DAILY Qty: 90 RF: 3 levothyroxine 25 mcg tablet 25 mcg PO DAILY Qty: 90 RF: 3 pregabalin [Lyrica] 100 mg capsule 100 mg PO TID Qty: 270 RF: 3 lansoprazole 30 mg capsule,delayed release(DR/EC) 30 mg PO DAILY Qty: 90 RF: 3 oxycodone-acetaminophen 10-325 mg tablet 1 tab PO TID PRN (Reason: pain) Qty: 90 RF: 0 Vitamin D3 4,000 unit capsule 4,000 units PO DAILY RF: 0 hydrocortisone [Anti-Itch (HC)] 1 % cream 1 appln TOP TID PRN (Reason: ITCHINESS) RF: 0 multivitamin [Daily Multi-Vitamin] tablet 1 tab PO DAILY Qty: 30 RF: 0 vitamin B complex capsule 1 cap PO DAILY Qty: 30 RF: 0 solifenacin [Vesicare] 10 mg tablet 10 mg PO DAILY Qty: 90 RF: 3 Myrbetriq 50 mg tablet extended release 24 hr 50 mg PO DAILY Qty: 90 RF: 3 ferrous sulfate [Feosol] 325 mg (65 mg iron) tablet 325 mg PO DAILY RF: 0 ropinirole 1 mg tablet 2 mg PO HS RF: 0 Admission Data Admit Date/Time: 09/22/20 00:05 Attending Provider: Nathan Beltre Admit Provider: Carole Villalba Primary Care Provider: Carlo Willingham Other Providers: [facility] ; Carole Villalba ; Saturnino Henry ; Jc Carbajal ; Ramiro Gagnon ; James Lawson ; Neto Villalba I. ; Chino Packer II ; Noy Ocampo ; Aníbal Jolly ; Dale Fairchild ; Breonna Almeida Coding Level of Care Code D/C Day Management >30 mins Diagnoses Airway problem J98.9 Acute respiratory failure with hypoxia J96.01 Acute metabolic encephalopathy G93.41 Hypernatremia E87.0 Acute kidney injury N17.9 Pneumonia due to COVID-19 virus U07.1; J12.89 Acute on chronic diastolic CHF (congestive heart failure) I50.33 GUS on CPAP G47.33; Z99.89 Gout M10.9 Gout site: unspecified site Gout etiology: unspecified cause Chronicity: unspecified BPH with obstruction/lower urinary tract symptoms N40.1; N13.8 Hypertension I10 Hypertension type: essential hypertension Hypothyroidism E03.9 Hypothyroidism type: unspecified Opioid dependence F11.20 Substance use status: uncomplicated Acid reflux K21.9 Esophagitis presence: esophagitis presence not specified DVT prophylaxis Z29.9 Atrial flutter I48.92 MRSA (methicillin resistant staphylococcus aureus) pneumonia J15.212 Swelling of left hand M79.89
== END 2020-10-13 22:49 | disposition expired | DRG 207 ==
LOC: ED 18:29 → EDINP 09-22 00:05 → SUATTDRO 09-22 00:05 → 2S 09-22 02:59 → 2E 09-23 20:04 → 1E 10-09 14:01 → 2W 10-12 18:44